=== PATIENT | female | born 1980 | race Two or more races ===

== ENCOUNTER → 2020-07-11 09:45 | Outpatient (BNVA) | payer MEDICAID, SELFPAY | PROVIDERS: PCP Internal Medicine; Visit Provider Surgery | DX: E65 Localized adiposity (principal) | CPT/HCPCS: 99203 ==

== ENCOUNTER 2020-07-26 09:27 | Outpatient (REF) | payer MEDICAID, SELFPAY ==
--- NOTE | 2020-07-26 09:29 | CT_ITS ---
EXAMINATION: CT ABDOMEN AND PELVIS WITHOUT CONTRAST CLINICAL INFORMATION: Localized adiposity COMPARISON: None TECHNIQUE: Multidetector volumetric imaging was performed from the superior aspect of the liver through the pubic symphysis. Sagittal and coronal reformatted images were obtained on the technologist's workstation. This CT examination was performed using dose optimization techniques as appropriate, variously including the following: *Automated exposure control *Adjustment of mA and/or kV according to patient size (this includes techniques or standardized protocols for targeted exams where dose is matched to indication/reason for exam; i.e. extremities or head) *Use of iterative reconstruction technique DLP: 610 mGy-cm FINDINGS: LUNG BASES: The visualized lung bases are unremarkable. LIVER, GALLBLADDER, AND BILIARY TREE: The liver is normal in size, shape, and attenuation. No focal hepatic lesion or biliary ductal dilatation is present. The gallbladder is unremarkable with no evidence of radiopaque gallstones, gallbladder wall thickening, or obvious pericholecystic inflammatory changes. PANCREAS: Unremarkable. SPLEEN: Unremarkable. ADRENAL GLANDS: Unremarkable. KIDNEYS AND URETERS: The kidneys are normal in size, shape, and attenuation. No hydronephrosis, hydroureter, or calculi seen. No perinephric stranding. BLADDER: Unremarkable. GASTROINTESTINAL TRACT: The small and large bowel are unremarkable. The appendix is unremarkable. ABDOMINAL WALL: There is an infraumbilical hernia containing fat. This is 1 cm below the umbilicus and measures 2 cm. LYMPH NODES: Normal. VASCULAR: Unremarkable. PELVIC VISCERA: No pelvic mass. OSSEOUS STRUCTURES: There is degenerative disc disease at L5-S1. CT/CT abdomen pelvis wo con IMPRESSION: Infraumbilical hernia containing fat.
== END 2020-07-26 09:28 | disposition home or self-care (01) ==
LOC: HO.CT 09:27
PROVIDERS: PCP Internal Medicine; Visit Provider Surgery
DX: E65 Localized adiposity (principal)
CPT/HCPCS: 74176

== ENCOUNTER → 2020-07-31 10:36 | Outpatient (BNVA) | payer MEDICAID, SELFPAY | PROVIDERS: PCP Internal Medicine; Visit Provider Surgery | DX: K42.9 Umbilical hernia without obstruction or gangrene (principal); E65 Localized adiposity | CPT/HCPCS: 99212 ==

== ENCOUNTER 2020-08-14 10:14 | Outpatient (REF) | payer MEDICAID, SELFPAY ==
--- NOTE | 2020-08-14 10:30 | EMG_ITS ---
HISTORY OF PRESENT ILLNESS: This is a 40-year-old woman with bilateral hand pain and numbness. She is on no medications. PHYSICAL EXAMINATION: On examination, she is alert and oriented with normal intellectual functions. Cranial nerves II through XII are normal. Muscle tone and strength are normal in all 4 extremities. No Tinel or Phalen sign. IMPRESSION: Rule out carpal tunnel syndrome. Nerve conduction EMG study: Normal electrodiagnostic study of both upper extremities with no evidence of carpal tunnel syndrome or nerve entrapment. Normal EMG of the left C5 through T1 innervated muscles. MD BRIT Gomez/TEQUILA / [id number]
== END 2020-08-14 10:15 | disposition home or self-care (01) ==
LOC: HO.NEURO 10:14
PROVIDERS: PCP Internal Medicine; Visit Provider Internal Medicine
DX: G56.03 Carpal tunnel syndrome, bilateral upper limbs (principal)
CPT/HCPCS: 95860; 95886

== ENCOUNTER 2021-06-12 16:30 | Emergency (ER) | payer MEDICAID, SELFPAY ==
--- NOTE | ~2021-06-12 | XR_ITS ---
EXAMINATION: XR CHEST CLINICAL INFORMATION: Chest pain COMPARISON: None TECHNIQUE: 2 views of the chest were obtained. FINDINGS: The lungs are well expanded. There is no focal consolidation, edema, or effusion. No pneumothorax. The cardiomediastinal silhouette is within normal limits. No acute osseous abnormality. XR/XR chest 2V IMPRESSION: Clear lungs.
--- NOTE | 2021-06-12 17:34 | ECG_ITS ---
Test Reason : CHEST PAIN Blood Pressure : / mmHG Vent. Rate : 071 BPM Atrial Rate : 071 BPM P-R Int : 148 ms QRS Dur : 082 ms QT Int : 372 ms P-R-T Axes : 011 026 024 degrees QTc Int : 404 ms Normal sinus rhythm Normal ECG No previous ECGs available Referred By: Generic ED Physician Electronically Signed By:GINGER TOMLINSON
[2021-06-12 17:52] LABS: MANUAL DIFF FLAG NO
[2021-06-12 17:53] LABS: Basophils Percent Auto 0.3 % (0-2); Eosinophils Absolute Auto 0.1 X10*3/uL (0.0-0.4); Eosinophils Percent Auto 1.3 % (0-4); Hematocrit 42.8 % (37-47); Hemoglobin 14.1 g/dl (12.0-16.0); Imm Gran Abs Auto 0.01 X10*3/uL (0.00-0.03); Imm Gran Pct Auto 0.2 % (0.0-0.4); Lymphocytes Absolute Auto 2.1 X10*3/uL (1.2-4.9); Lymphocytes Percent Auto 33.9 % (20-40); Mean Corpuscular HGB Conc 32.9 g/dl (31.0-35.0); Mean Corpuscular Hemoglobin 29.3 pg (27.0-33.0); Mean Platelet Volume 9.6 fL (9.4-12.3); Monocytes Absolute Auto 0.6 X10*3/uL (0.1-1.2); Monocytes Percent Auto 8.7 % (2-11); Neutrophils Absolute Auto 3.5 X10*3/uL (2.0-8.3); Neutrophils Percent Auto 55.6 % (45-73); Platelet Count 303 X10*3/uL (160-400); Red Blood Count 4.81 X10*6/uL (4.20-5.50); Red Cell Distribution Width 13.1 % (11.0-16.0); White Blood Count 6.3 X10*3/uL (4.8-10.8)
[2021-06-12 18:00] VITALS: BP 119/74; PULSE 77; RESP 18; TEMP 36.9; O2SAT 98; BMI 38.0
[2021-06-12 18:07] LABS: Alanine Aminotransferase 23 U/L (0-31); Albumin Level 4.3 g/dL (3.5-5.0); Alkaline Phosphatase 77 U/L (39-117); Anion Gap 11 (12-20); Aspartate Amino Transferase 22 U/L (5-31); Bilirubin Total 0.3 mg/dL (0.0-1.0); Blood Urea Nitrogen 12 mg/dL (9-16); Calcium 10.3 mg/dL (8.4-10.2); Carbon Dioxide 29 mmol/L (22-29); Chloride 106 mmol/L (96-108); Creatinine Clr Calc Pharmacy 78.5; Estimated Glomerular Filt Rate > 60; Glucose Random 107 mg/dL (60-115); Potassium 4.4 mmol/L (3.3-5.1); Sodium 142 mmol/L (135-145); Total Protein 7.6 g/dL (6.5-8.0)
[2021-06-12 20:49] VITALS: BP 120/76; PULSE 63; RESP 14; O2SAT 99
[2021-06-12 21:01] LABS: Appearance Urine CLEAR; Color Urine YELLOW; Glucose Urine UA NEG (NEG); Leukocyte Esterase Urine NEG (NEG); Nitrite Urine NEG (NEG); Specific Gravity - Urine 1.025 (1.005-1.025); Urine Blood NEG (NEG); Urine Ketones NEG (NEG); Urine Protein NEG (NEG-TRACE)
[2021-06-12 21:19] LABS: Troponin-I High Sensitivity < 3.5 ng/L (<3.5-17.0)
--- NOTE | 2021-06-12 21:40 | ED_ITS ---
HPI - General Adult General Chief complaint: Dizziness Stated complaint: Double vision/hand weakness Time Seen by Provider: 06/12/21 21:39 Source: patient Mode of arrival: ambulatory Limitations: language barrier History of Present Illness HPI narrative: sharp chest pain, started yesterday, no prior history. Patient is currently taking an antibiotic for a UTI started immediately after. No nausea, no belching. Patient states the pain is accompanied by a warm sensation and arm pain. The pain lasts 15 to 20 minutes. Onset (ago): day(s) Radiation: other (arms) Severity: mild Quality: sharp Pain Consistency: intermittent Relieving factors: none Exacerbating factors: none Related Data Home Medications Medication Instructions Recorded Confirmed albuterol sulfate 90 mcg/actuation 2 puff INHALATION Q4-6H PRN 07/11/20 aerosol inhaler atorvastatin 20 mg tablet 20 mg PO DAILY 07/11/20 benzonatate 100 mg capsule 100 mg PO TID 07/11/20 (Piper Pinedo) betamethasone dipropionate 0.05 % 1 applic TOPICAL DAILY PRN 07/11/20 topical cream bupropion HCl 100 mg tablet 100 mg PO DAILY tab 07/11/20 buspirone 10 mg tablet 10 mg PO BID 07/11/20 [id number]-ogosxjflijqeu-hzcdjbuq 1 cap PO Q4H PRN 07/11/20 50 mg-325 mg-40 mg capsule cholecalciferol (vitamin D3) 50 50 mcg PO DAILY 07/11/20 mcg (2,000 unit) capsule ciprofloxacin HCl 500 mg tablet 500 mg PO Q12H 07/11/20 citalopram 20 mg tablet 20 mg PO DAILY 07/11/20 famotidine 40 mg tablet 40 mg PO BEDTIME 07/11/20 fluticasone propionate 230 1 puff INHALATION BID g 07/11/20 mcg-salmeterol 21 mcg/actuation HFA inhaler hydroxyzine HCl 50 mg tablet 50 mg PO BID 07/11/20 metronidazole 0.75 % topical cream 1 applic TOPICAL BID 07/11/20 sumatriptan succinate 100 mg 100 mg PO Q2-4H PRN 07/11/20 tablet (Imitrex) topiramate 50 mg tablet 50 mg PO BID 07/11/20 triamcinolone acetonide 0.1 % 1 applic TOPICAL BID 07/11/20 topical cream Allergies Allergy/AdvReac Type Severity Reaction Status Date / Time aspirin Allergy Unknown Unknown Verified 06/12/21 17:59 Penicillins Allergy Unknown Unknown Verified 06/12/21 17:59 seafood Allergy Rash Verified 06/12/21 17:59 Review of Systems Constitutional: Constitutional: Reports no additional constitutional complaints Eyes: Eyes: Reports no additional eye complaints ENT: Denies dizziness Cardiovascular: Cardiovascular: Reports no additional cardiovascular complaints Respiratory: Respiratory: Reports as per HPI Gastrointestinal: Gastrointestinal: Reports no additional gastrointestinal complaints Genitourinary: Genitourinary: Reports no additional female genitourinary complaints Musculoskeletal: Musculoskeletal: Reports no additional musculoskeletal complaints Integumentary/Breasts: Skin/Breast: Denies rash Neurologic: Reports system reviewed and no additional complaints, except as documented, Denies dizziness and Denies Sensory deficit (Neuro) Psychiatric: Psychiatric: Denies anxiety [facility] Past Medical History Medical History Asthma Migraine Morbid obesity Pannus, abdominal Umbilical hernia Surgical History History of bilateral breast reduction surgery History of hysterectomy Family History Family History Father History of prostate cancer Maternal Aunt History of breast cancer Social History Social History Alcohol intake: never Advance Directives: No Advance Directives Information Provided: Yes Patient : No Physical Exam Vital Signs: Vital Signs: Last Vital Signs Temp 98.5 F 06/12/21 18:00 Pulse 72 06/12/21 22:53 Resp 16 06/12/21 22:53 BP 116/77 06/12/21 22:53 Pulse Ox 97 06/12/21 22:00 Body Mass Index 38.0 Const: General: healthy appearing Nutritional Appearance: average body habitus Orientation/consciousness: oriented to person and patient oriented x3 Limitations: no limitations HENMT: Head: Yes normal to inspection Ears: external ears normal General nose exam: Normal external nose present Mouth: Normal oral and palatal mucosa present and oropharynx normal Throat: Yes posterior oropharynx normal Eyes: General: appearance normal, both eyes and all related structures Neck: Other: supple Neck: Yes normal visual inspection Chest: Other: reproducible sternal pain to palpation Resp: Auscultation: clear to auscultation bilaterally Cardio: Jugular venous distension: no JVD Rate: regular rate Rhythm: regular rhythm Heart sounds: S1 normal heart sound present and S2 normal heart sound present GI: Inspection: Yes normal to inspection Palpation (GI): Soft to palpation, nontender and No hepatosplenomegaly present Auscultation: normal bowel sounds : General: Yes no CVA tenderness Back/Spine/Pelvis: Back: no CVA tenderness Skin: General skin exam: no rashes or lesions noted Neuro: General: oriented to person and patient oriented x3 Cranial nerves: Yes CN's II-XII intact bilaterally Motor exam (neuro): 5/5 motor strength present throughout Sensory Exam: No Sensory deficit (Neuro) Extrem: General: Yes normal to inspection Psych: Appearance: grossly normal Course Reevaluation(s) Reevaluation #1: Labs EKG, CXR all normal, physical consistent with costrochondritis will dc home Time: 23:01 Medical Decision Making Lab Data Result diagrams: 06/12/21 17:43 06/12/21 17:43 Labs: Lab Results 06/12/21 06/12/21 06/12/21 Range/Units 17:43 17:43 20:55 WBC 6.3 (4.8-10.8) X10*3/uL RBC 4.81 (4.20-5.50) X10*6/uL Hgb 14.1 (12.0-16.0) g/dl Hct 42.8 (37-47) % MCV 89.0 (80-98) fL MCH 29.3 (27.0-33.0) pg MCHC 32.9 (31.0-35.0) g/dl RDW 13.1 (11.0-16.0) % Plt Count 303 (160-400) X10*3/uL MPV 9.6 (9.4-12.3) fL Immature Gran % (Auto) 0.2 (0.0-0.4) % Neut % (Auto) 55.6 (45-73) % Lymph % (Auto) 33.9 (20-40) % Aurora % (Auto) 8.7 (2-11) % Eos % (Auto) 1.3 (0-4) % Baso % (Auto) 0.3 (0-2) % Lymph # (Auto) 2.1 (1.2-4.9) X10*3/uL Aurora # (Auto) 0.6 (0.1-1.2) X10*3/uL Eos # (Auto) 0.1 (0.0-0.4) X10*3/uL Baso # (Auto) 0.0 (0.0-0.2) X10*3/uL Abs Immat Gran (auto) 0.01 (0.00-0.03) X10*3/uL Absolute Neuts (auto) 3.5 (2.0-8.3) X10*3/uL Absolute Nucleated RBC 0.000 (0.0-0.012) X10*3/uL Nucleated RBC % (auto) 0.0 (0.0-0.2) /100WBC Sodium 142 (135-145) mmol/L Potassium 4.4 (3.3-5.1) mmol/L Chloride 106 (96-108) mmol/L Carbon Dioxide 29 (22-29) mmol/L Anion Gap 11 L (12-20) BUN 12 (9-16) mg/dL Creatinine 1.01 (0.5-1.4) mg/dL Estim Creat Clear Calc 78.5 Estimated GFR > 60 Random Glucose 107 (60-115) mg/dL Calcium 10.3 H (8.4-10.2) mg/dL Total Bilirubin 0.3 (0.0-1.0) mg/dL AST 22 (5-31) U/L ALT 23 (0-31) U/L Alkaline Phosphatase 77 (39-117) U/L Troponin I High Sens < 3.5 (<3.5-17.0) ng/L Total Protein 7.6 (6.5-8.0) g/dL Albumin 4.3 (3.5-5.0) g/dL Urine Color Urine Appearance Urine pH (5.0-8.0) Ur Specific Whitney (1.005-1.025) Urine Protein (NEG-TRACE) MG/DL Urine Glucose (UA) (NEG) MG/DL Urine Ketones (NEG) MG/DL Urine Blood (NEG) Urine Nitrite (NEG) Ur Leukocyte Esterase (NEG) 06/12/21 Range/Units 20:55 WBC (4.8-10.8) X10*3/uL RBC (4.20-5.50) X10*6/uL Hgb (12.0-16.0) g/dl Hct (37-47) % MCV (80-98) fL MCH (27.0-33.0) pg MCHC (31.0-35.0) g/dl RDW (11.0-16.0) % Plt Count (160-400) X10*3/uL MPV (9.4-12.3) fL Immature Gran % (Auto) (0.0-0.4) % Neut % (Auto) (45-73) % Lymph % (Auto) (20-40) % Aurora % (Auto) (2-11) % Eos % (Auto) (0-4) % Baso % (Auto) (0-2) % Lymph # (Auto) (1.2-4.9) X10*3/uL Aurora # (Auto) (0.1-1.2) X10*3/uL Eos # (Auto) (0.0-0.4) X10*3/uL Baso # (Auto) (0.0-0.2) X10*3/uL Abs Immat Gran (auto) (0.00-0.03) X10*3/uL Absolute Neuts (auto) (2.0-8.3) X10*3/uL Absolute Nucleated RBC (0.0-0.012) X10*3/uL Nucleated RBC % (auto) (0.0-0.2) /100WBC Sodium (135-145) mmol/L Potassium (3.3-5.1) mmol/L Chloride (96-108) mmol/L Carbon Dioxide (22-29) mmol/L Anion Gap (12-20) BUN (9-16) mg/dL Creatinine (0.5-1.4) mg/dL Estim Creat Clear Calc Estimated GFR Random Glucose (60-115) mg/dL Calcium (8.4-10.2) mg/dL Total Bilirubin (0.0-1.0) mg/dL AST (5-31) U/L ALT (0-31) U/L Alkaline Phosphatase (39-117) U/L Troponin I High Sens (<3.5-17.0) ng/L Total Protein (6.5-8.0) g/dL Albumin (3.5-5.0) g/dL Urine Color YELLOW Urine Appearance CLEAR Urine pH 6.0 (5.0-8.0) Ur Specific Whitney 1.025 (1.005-1.025) Urine Protein NEG (NEG-TRACE) MG/DL Urine Glucose (UA) NEG (NEG) MG/DL Urine Ketones NEG (NEG) MG/DL Urine Blood NEG (NEG) Urine Nitrite NEG (NEG) Ur Leukocyte Esterase NEG (NEG) Imaging Data Chest x-ray: Radiologist's impression: IMPRESSION: Clear lungs. ECG Data Attestation: I personally reviewed and interpreted this ECG as follows: Interpretation: normal sinus rast of 70, no st or twave changes Discharge Plan Discharge Clinical Impression: Acute costochondritis Patient Disposition: Home, Self-Care Instructions: Costochondritis (ED) Prescriptions: No Action topiramate 50 mg tablet 50 mg PO BID RF: 0 atorvastatin 20 mg tablet 20 mg PO DAILY RF: 0 citalopram 20 mg tablet 20 mg PO DAILY RF: 0 fluticasone propion-salmeterol 230-21 mcg/actuation HFA aerosol inhaler 1 puff inhalation BID RF: 0 bupropion HCl 100 mg tablet 100 mg PO DAILY RF: 0 sumatriptan succinate [Imitrex] 100 mg tablet 100 mg PO Q2-4H PRNRF: 0 cholecalciferol (vitamin D3) 50 mcg (2,000 unit) capsule 50 mcg PO DAILY RF: 0 benzonatate [Tessalon Perles] 100 mg capsule 100 mg PO TID RF: 0 nuovfxqgto-shxerpepxgfar-evxv 50-325-40 mg capsule 1 cap PO Q4H PRNRF: 0 famotidine 40 mg tablet 40 mg PO BEDTIME RF: 0 buspirone 10 mg tablet 10 mg PO BID RF: 0 triamcinolone acetonide 0.1 % cream 1 applic topical BID RF: 0 albuterol sulfate 90 mcg/actuation HFA aerosol inhaler 2 puff inhalation Q4-6H PRNRF: 0 metronidazole 0.75 % cream 1 applic topical BID RF: 0 hydroxyzine HCl 50 mg tablet 50 mg PO BID RF: 0 betamethasone dipropionate 0.05 % cream 1 applic topical DAILY PRNRF: 0 ciprofloxacin HCl 500 mg tablet 500 mg PO Q12H RF: 0 Referrals: Simona Ribeiro MD [Primary Care Provider] - 5 days
[2021-06-12 22:00] VITALS: BP 128/79; PULSE 66; RESP 18; O2SAT 97
[2021-06-12] MEDS: NaPROXEN 500 MG TABLET PO (22:18)
[2021-06-12 22:53] VITALS: BP 116/77; PULSE 72; RESP 16
== END 2021-06-12 23:19 | disposition home or self-care (01) ==
PROVIDERS: Emergency Provider Emergency Medicine; PCP Internal Medicine
DX: M94.0 Chondrocostal junction syndrome [Tietze] (principal); R42 Dizziness and giddiness; M79.602 Pain in left arm; M79.601 Pain in right arm; Z79.899 Other long term (current) drug therapy
CPT/HCPCS: 36415; 71046; 80053; 81003; 84484; 85025; 93005; 99283; 99284

== ENCOUNTER 2021-08-18 09:33 | Outpatient (REF) | payer MEDICAID, SELFPAY ==
[2021-08-21 16:31] LABS: HPV mRNA E6/E7 rflx Not Detected (Not Detected)
== END 2021-08-18 09:34 | disposition home or self-care (01) ==
LOC: HO.LAB 09:33
PROVIDERS: Visit Provider Obstetrics & Gynecology
DX: Z01.419 Encounter for gynecological examination (general) (routine) without abnormal findings (principal); Z11.51 Encounter for screening for human papillomavirus (HPV)
CPT/HCPCS: 87624; 88142

== ENCOUNTER → 2021-08-22 11:40 | Outpatient (BNVA) | payer MEDICAID, SELFPAY | PROVIDERS: PCP Internal Medicine; Referring Provider Internal Medicine; Visit Provider Physician Assistant ==

== ENCOUNTER → 2021-08-27 08:06 | Outpatient (BNVA) | payer MEDICAID, SELFPAY | PROVIDERS: PCP Internal Medicine; Visit Provider Surgery ==

== ENCOUNTER 2021-08-30 07:40 | Outpatient (REF) | payer MEDICAID, SELFPAY ==
--- NOTE | ~2021-08-30 | XR_ITS ---
EXAMINATION: XR CHEST CLINICAL INFORMATION: Asthma. COMPARISON: 06/12/2021 TECHNIQUE: 2 views of the chest were obtained. FINDINGS: No acute finding. No infiltrate is seen. The lung condon are grossly clear. The cardiac silhouette is within normal limits. The hilar regions are comparable to previous. There is no effusion. XR/XR chest 2V IMPRESSION: No acute finding.
[2021-08-30 07:45] LABS: MANUAL DIFF FLAG NO
[2021-08-30 08:06] LABS: Basophils Percent Auto 0.5 % (0-2); Eosinophils Absolute Auto 0.1 X10*3/uL (0.0-0.4); Eosinophils Percent Auto 1.8 % (0-4); Hematocrit 44.5 % (37.0-47.0); Hemoglobin 14.6 g/dl (12.0-16.0); Imm Gran Abs Auto 0.01 X10*3/uL (0.00-0.03); Imm Gran Pct Auto 0.2 % (0.0-0.4); Lymphocytes Absolute Auto 2.5 X10*3/uL (1.2-4.9); Lymphocytes Percent Auto 41.3 % (20-40); Mean Corpuscular HGB Conc 32.8 g/dl (31.0-35.0); Mean Corpuscular Hemoglobin 29.2 pg (27.0-33.0); Mean Platelet Volume 9.7 fL (9.4-12.3); Monocytes Absolute Auto 0.5 X10*3/uL (0.1-1.2); Monocytes Percent Auto 8.9 % (2-11); Neutrophils Absolute Auto 2.9 x10*3/uL (2.0-8.3); Neutrophils Percent Auto 47.3 % (45-73); Platelet Count 325 X10*3/uL (160-400); Red Cell Distribution Width 12.9 % (11.0-16.0); White Blood Count 6.1 X10*3/uL (4.8-10.8)
[2021-08-30 08:16] LABS: Estimated Average Glucose 120 mg/dL; Hemoglobin A1c % 5.8 %
[2021-08-30 08:27] LABS: Alanine Aminotransferase 19 U/L (0-31); Albumin Level 4.5 g/dL (3.5-5.0); Alkaline Phosphatase 93 U/L (39-117); Anion Gap 13 (12-20); Aspartate Amino Transferase 18 U/L (5-31); Bilirubin Total 0.6 mg/dL (0.0-1.0); Blood Urea Nitrogen 12 mg/dL (9-16); C Reactive Protein 0.25 mg/dL (< or = 0.50); Calcium 10.3 mg/dL (8.4-10.2); Carbon Dioxide 28 mmol/L (22-29); Chloride 107 mmol/L (96-108); Cholesterol 157 mg/dL; Estimated Glomerular Filt Rate 58; Glucose Random 105 mg/dL (60-115); HDL Cholesterol 51 mg/dL; Iron 128 mcg/dL (30-160); LDL Cholesterol Calculated 84 mg/dl; Percent Iron Saturation 41 % (15-50); Potassium 4.1 mmol/L (3.3-5.1); Sodium 144 mmol/L (135-145); Total Iron Binding Capacity 315 mcg/dL (228-428); Total Protein 7.8 g/dL (6.5-8.0); Triglycerides 112 mg/dL; Unsaturated Iron Binding 187 ug/dL
[2021-08-30 08:49] LABS: Ferritin 198 ng/mL (10-250); TSH reflex Free T4 1.59 uIU/mL (0.32-4.0)
[2021-08-30 09:19] LABS: Insulin 33 uU/mL (2-29); Vitamin D 25-OH Total 31.3 ng/mL (>30)
[2021-09-01 08:39] LABS: Folate 15.8 ng/mL (> or = 4.0); Vitamin B12 401 pg/mL (200-900)
[2021-09-01 16:31] LABS: Calcium (PTHI) 10.1 mg/dL (8.6-10.2); PTHI 49 pg/mL (14-64)
[2021-09-02 16:15] LABS: Zinc 83 mcg/dL (60-130)
[2021-09-03 19:42] LABS: Vitamin A 31 mcg/dL (38-98)
[2021-09-04 15:31] LABS: Vitamin B1 13 nmol/L (8-30)
== END 2021-08-30 07:41 | disposition home or self-care (01) ==
LOC: HO.XRAY 07:40
PROVIDERS: PCP Internal Medicine; Visit Provider Surgery
DX: J45.909 Unspecified asthma, uncomplicated (principal); K21.9 Gastro-esophageal reflux disease without esophagitis; K42.9 Umbilical hernia without obstruction or gangrene; G47.30 Sleep apnea, unspecified; G43.909 Migraine, unspecified, not intractable, without status migrainosus; E78.5 Hyperlipidemia, unspecified; E66.9 Obesity, unspecified; Z68.38 Body mass index [BMI] 38.0-38.9, adult; E11.9 Type 2 diabetes mellitus without complications
CPT/HCPCS: 36415; 71046; 80053; 80061; 82306; 82607; 82728; 82746; 83036; 83525; 83540; 83970; 84425; 84443; 84590; 84630; 85025; 86140

== ENCOUNTER → 2021-09-01 07:38 | Outpatient (REF) | payer MEDICAID, SELFPAY ==
--- NOTE | 2021-09-01 07:57 | ECG_ITS ---
Test Reason : asthma Blood Pressure : / mmHG Vent. Rate : 058 BPM Atrial Rate : 058 BPM P-R Int : 146 ms QRS Dur : 088 ms QT Int : 400 ms P-R-T Axes : 009 039 028 degrees QTc Int : 392 ms Sinus bradycardia Otherwise normal ECG When compared with ECG of 12-JUN-2021 17:41, No significant change was found Referred By: El Fisher Electronically Signed By:WAYNE RUELAS MD
== END ==
LOC: HO.CARD 07:38
PROVIDERS: PCP Internal Medicine; Visit Provider Surgery
DX: E66.9 Obesity, unspecified (principal); Z68.38 Body mass index [BMI] 38.0-38.9, adult; E11.9 Type 2 diabetes mellitus without complications; E78.5 Hyperlipidemia, unspecified; G43.909 Migraine, unspecified, not intractable, without status migrainosus; G47.30 Sleep apnea, unspecified; K21.9 Gastro-esophageal reflux disease without esophagitis; K42.9 Umbilical hernia without obstruction or gangrene; J45.909 Unspecified asthma, uncomplicated
CPT/HCPCS: 93005

== ENCOUNTER 2021-09-10 11:28 | Outpatient (REF) | payer MEDICAID, SELFPAY ==
[2021-09-11 14:16] LABS: H Pylori Breath Test Negative (Negative)
== END 2021-09-10 11:29 | disposition home or self-care (01) ==
LOC: HO.LNP 11:28
PROVIDERS: PCP Internal Medicine; Referring Provider Internal Medicine; Visit Provider Surgery
DX: E66.9 Obesity, unspecified (principal); Z68.38 Body mass index [BMI] 38.0-38.9, adult; Z71.3 Dietary counseling and surveillance
CPT/HCPCS: 83013; 97802; 99211

== ENCOUNTER 2021-09-11 08:35 | Outpatient (REF) | payer MEDICAID, SELFPAY | END 2021-09-11 08:36 | disposition home or self-care (01) | LOC: HO.LNP 08:35 | PROVIDERS: Visit Provider Surgery | DX: Z13.89 Encounter for screening for other disorder (principal) ==

== ENCOUNTER 2021-09-23 11:15 | Outpatient (REF) | payer MEDICAID, SELFPAY ==
--- NOTE | ~2021-09-23 | MM_ITS ---
EXAMINATION: MM SCREENING DIGITAL BREAST TOMOSYNTHESIS, BILATERAL CLINICAL INFORMATION: Screening. Asymptomatic. History ovarian cancer, age 30s. Family history breast cancer paternal aunt. Prior history reduction mammoplasty 2009. Incidental right breast fibroadenoma. The lifetime risk of breast cancer based on the Tyrer-Cuzick Model is 34%. COMPARISON: Outside mammography: 07/08/2019 ([facility]). TECHNIQUE: Digital breast tomosynthesis is performed in both the craniocaudal and mediolateral oblique views along with computer-aided detection (CAD). Synthesized 2D images are generated from the tomosynthesis. Additional right MLO view is provided. FINDINGS: The breasts are almost entirely fatty (ACR BI-RADS breast composition Category a). Background stromal tissue is similar to prior outside exam. There is minor scarring and scattered benign round and rim and dermal calcifications consistent with the prior reduction mammoplasty. There is an incidental dermal lesion overlying the anterior 11:00 right breast. The axilla are unremarkable. MM/MM tomosynthesis screening BI IMPRESSION: No mammographic evidence of malignancy. ASSESSMENT: BI-RADS 2: Benign RECOMMENDATION: 1. Routine annual mammography screening. 2. The lifetime risk of breast cancer based on the Tyrer-Cuzick Model is 34%. Additional annual adjunct screening with breast MRI may be of benefit in women with a risk score of 20% or greater. This patient's information was entered into a reminder system with a target due date for their next mammogram.
== END 2021-09-23 11:16 | disposition home or self-care (01) ==
LOC: HO.MAMMO 11:15
PROVIDERS: Visit Provider Obstetrics & Gynecology
DX: Z12.31 Encounter for screening mammogram for malignant neoplasm of breast (principal)
CPT/HCPCS: 77063; 77067

== ENCOUNTER → 2021-09-24 08:52 | Outpatient (BNVA) | payer MEDICAID, SELFPAY | PROVIDERS: PCP Internal Medicine; Visit Provider Surgery ==

== ENCOUNTER → 2021-10-07 08:06 | Outpatient (BNVA) | payer MEDICAID, SELFPAY | PROVIDERS: PCP Internal Medicine; Referring Provider Physician Assistant; Visit Provider Dietitian, Registered | DX: E66.9 Obesity, unspecified (principal) | CPT/HCPCS: 97803 ==

== ENCOUNTER 2021-10-16 07:41 | Outpatient (REF) | payer MEDICAID, SELFPAY ==
--- NOTE | ~2021-10-16 | US_ITS ---
EXAMINATION: US COMPLETE ABDOMEN WITH LIVER ELASTOGRAPHY CLINICAL INFORMATION: Obesity. COMPARISON: CT abdomen and pelvis without contrast 07/26/2020. TECHNIQUE: Real-time imaging of the abdominal viscera. Noninvasive ultrasound liver fibrosis assessment is performed using Nas ElastPQ point quantification shear wave elastography (2D-SWE) with a C5-2 MHz transducer. Multiple elastography samples are obtained. FINDINGS: PANCREAS: Normal. The visualized pancreatic head and body are normal in appearance. The remainder of the pancreas is obscured from visualization by the overlying bowel gas. ABDOMINAL AORTA: The proximal, middle, and distal aortic segments are normal in caliber. INFERIOR VENA CAVA: Visualized portions are normal. LIVER: Normal. The liver demonstrates normal size, contour and increased echogenicity. No focal lesion or intrahepatic biliary duct dilatation. The right lobe measures 1.61 cm in length. The left lobe measures 0.12 cm in length. Portal flow is hepatopetal. Shear wave liver elastography median stiffness is 1.61 m/s (reference: normal median stiffness is 1.3 m/s or less). IQR/median stiffness to assess sampling precision is 0.12 (reference: good quality data set is IQR/median stiffness of 0.15 or less). GALLBLADDER: Normal. The gallbladder is physiologically distended without evidence of stones, sludge, polyps, wall thickening or pericholecystic fluid. COMMON BILE DUCT: Normal in caliber measuring 0.27 cm in diameter. RIGHT KIDNEY: Normal. No hydronephrosis. No renal calculi or focal parenchymal lesions. The kidney measures 10.6 cm in maximum dimension. LEFT KIDNEY: Normal. No hydronephrosis. No renal calculi or focal parenchymal lesions. The kidney measures 10.5 cm in maximum dimension. SPLEEN: Normal. The spleen measures 9.2 cm in maximum dimension. FREE FLUID: None. US/US abdomen comp w elastography IMPRESSION: 1. Hepatic steatosis without focal lesion. 2. The rest of the abdominal ultrasound is unremarkable. 3. Liver elastography: Median liver stiffness measures 1.61 m/s, cACLD ruled out. REFERENCE: Society of Radiologists in Ultrasound Liver Stiffness Thresholds (2019): LIVER STIFFNESS THRESHOLDS: *Liver Stiffness equal or less than 1.3 m/s: High probability of being normal. *Liver Stiffness less than 1.7 m/s: In the absence of other known clinical signs, rules out compensated advanced chronic liver disease. *Liver Stiffness 1.7-2.1 m/s: Suggestive of compensated advanced chronic liver disease but need further test for confirmation. *Liver Stiffness over 2.1 m/s: Rules in compensated advanced chronic liver disease. *Liver Stiffness over 2.4 m/s: Suggestive of clinically significant portal hypertension. QUALITY OF DATA SET: *IQR/Median value equal or less than 0.15 implies a quality data set. *IQR/Median value over 0.15 implies a poor quality data set. SIGNIFICANT CHANGE FROM PRIOR EXAM: Significant change if liver stiffness measurement is 10% or greater from prior exam. OTHER CONSIDERATIONS: The stage of liver fibrosis may be overestimated in the setting of acute hepatitis, liver inflammation, elevated liver function tests, hepatic vascular congestion, obstructive cholestasis, non-fasting state, and infiltrative diseases such as amyloidosis and lymphoma. In some patients with NAFLD, the liver stiffness thresholds for compensated advanced chronic liver disease may be lower. In causes other than viral hepatitis and NAFLD, liver stiffness thresholds are not well established.
--- NOTE | ~2021-10-16 | FL_ITS ---
EXAMINATION: XR FLUOROSCOPY UPPER GI WITH AIR CLINICAL INFORMATION: Asthma COMPARISON: None TECHNIQUE: Air-contrast upper GI examination FINDINGS: There is normal apposition of the vocal cords when saying E. There is normal elevation of the soft palate while saying candy. Patient swallowed thin and thick barium without difficulty. There is no evidence of nasopharyngeal reflux or tracheal aspiration. No persistent esophageal stricture is seen. No ulceration noted. The stomach demonstrated normal distensibility without evidence of abnormal mass or ulceration. There was no delay in gastric emptying. The duodenal bulb and sweep appear unremarkable. FLUOROSCOPY TIME: 1.5 minutes DOSE AREA PRODUCT: 13.369 Gy-cm2 (cueva-centimeter squared) FL/FL upper GI w air IMPRESSION: Normal air-contrast upper GI examination.
== END 2021-10-16 07:42 | disposition home or self-care (01) ==
LOC: HO.US 07:41
PROVIDERS: Visit Provider Surgery
DX: J45.909 Unspecified asthma, uncomplicated (principal); G43.909 Migraine, unspecified, not intractable, without status migrainosus; K21.9 Gastro-esophageal reflux disease without esophagitis; K42.9 Umbilical hernia without obstruction or gangrene; G47.30 Sleep apnea, unspecified; E78.5 Hyperlipidemia, unspecified; E11.9 Type 2 diabetes mellitus without complications; E66.9 Obesity, unspecified; Z68.38 Body mass index [BMI] 38.0-38.9, adult
CPT/HCPCS: 74246; 76705; 76981

== ENCOUNTER → 2021-10-22 12:22 | Outpatient (BNVA) | payer MEDICAID, SELFPAY | PROVIDERS: Visit Provider Obstetrics & Gynecology ==

== ENCOUNTER → 2021-11-07 08:22 | Outpatient (BNVA) | payer MEDICAID, SELFPAY | PROVIDERS: Referring Provider Surgery; Visit Provider Dietitian, Registered | DX: E66.9 Obesity, unspecified (principal); E11.9 Type 2 diabetes mellitus without complications; Z68.36 Body mass index [BMI] 36.0-36.9, adult | CPT/HCPCS: 97803 ==

== ENCOUNTER 2021-11-13 10:00 | Outpatient (REF) | payer MEDICAID, SELFPAY ==
--- NOTE | ~2021-11-13 | MR_ITS ---
EXAMINATION: MR BREAST WITHOUT AND WITH CONTRAST, BILATERAL CLINICAL INFORMATION: High-risk screening lifetime risk greater than 20% strong family history aunt and cousin COMPARISON: Correlation to mammogram of 09/23/2021 TECHNIQUE: Imaging was performed with a dedicated breast coil. Prior to the administration of contrast, bilateral axial T1 and bilateral axial T2 weighted sequences were obtained. After the uneventful administration of?10 mL of Gadavist, dynamic contrast-enhanced VIBRANT series through the breasts in the axial plane were performed. Subtracted images were performed and reviewed. A delayed sagittal sequence through both breasts was acquired. Additionally, CAD post-processing, including maximum intensity projections, 3-D reconstructions and kinetic analysis, were performed an independent workstation and reviewed by the interpreting radiologist is a portion of this exam. FINDINGS: The patient's fibroglandular tissue demonstrates minimal background enhancement LEFT BREAST: No suspicious masslike or non-masslike enhancement. No abnormal skin thickening or nipple retraction. No abnormal architectural distortion. Review of the T2 weighted images demonstrates no fibrocystic changes or dilated ducts. Review of kinetic images reveals no additional findings. RIGHT BREAST: No suspicious masslike or non-masslike enhancement. No abnormal skin thickening or nipple retraction. No abnormal architectural distortion. Review of the T2 weighted images demonstrates no fibrocystic changes or dilated ducts. Review of kinetic images reveals no additional findings. There is no suspicious internal mammary chain or axillary adenopathy. Limited views of the chest and abdomen are unremarkable. MR/MR breast BI wo/w con IMPRESSION: No MR specific evidence of malignancy. ASSESSMENT: LEFT BREAST: BI-RADS 1-Negative RIGHT BREAST: BI-RADS 1-Negative RECOMMENDATIONS: Routine mammographic imaging as per most recent study and MRI as per high-risk protocol.
== END 2021-11-13 10:01 | disposition home or self-care (01) ==
LOC: HO.MRI 10:00
PROVIDERS: Visit Provider Obstetrics & Gynecology
DX: Z91.89 Other specified personal risk factors, not elsewhere classified (principal)
CPT/HCPCS: 77049; A9585

== ENCOUNTER → 2021-11-18 12:32 | Outpatient (BNVA) | payer MEDICAID, SELFPAY | PROVIDERS: PCP Internal Medicine; Referring Provider Obstetrics & Gynecology; Visit Provider Surgery | DX: Z91.89 Other specified personal risk factors, not elsewhere classified (principal); Z80.3 Family history of malignant neoplasm of breast | CPT/HCPCS: 99202 ==

== ENCOUNTER → 2021-11-28 08:09 | Outpatient (BNVA) | payer MEDICAID, SELFPAY | PROVIDERS: PCP Internal Medicine; Referring Provider Surgery; Visit Provider Dietitian, Registered | DX: E66.9 Obesity, unspecified (principal); Z68.36 Body mass index [BMI] 36.0-36.9, adult | CPT/HCPCS: 97803 ==

== ENCOUNTER → 2021-12-29 08:03 | Outpatient (BNVA) | payer MEDICAID, SELFPAY | PROVIDERS: PCP Internal Medicine; Visit Provider Surgery | DX: E66.9 Obesity, unspecified (principal); Z68.39 Body mass index [BMI] 39.0-39.9, adult; K21.9 Gastro-esophageal reflux disease without esophagitis; R11.0 Nausea; Z01.818 Encounter for other preprocedural examination ==

== ENCOUNTER → 2022-01-01 11:52 | Outpatient (BNVA) | payer MEDICAID, SELFPAY | PROVIDERS: PCP Internal Medicine; Referring Provider Internal Medicine; Visit Provider Physician Assistant Surgical | DX: Z13.89 Encounter for screening for other disorder (principal) ==

== ENCOUNTER 2022-01-06 10:33 | Inpatient (IN) | payer MEDICAID, SELFPAY ==
[2021-12-30 07:56] LABS: MANUAL DIFF FLAG NO
[2021-12-30 08:01] LABS: Basophils Percent Auto 0.7 % (0-2); Eosinophils Percent Auto 0.5 % (0-4); Hematocrit 45.1 % (37.0-47.0); Hemoglobin 14.7 g/dl (12.0-16.0); Imm Gran Abs Auto 0.01 X10*3/uL (0.00-0.03); Imm Gran Pct Auto 0.2 % (0.0-0.4); Lymphocytes Percent Auto 32.9 % (20-40); Mean Corpuscular HGB Conc 32.6 g/dl (31.0-35.0); Mean Corpuscular Hemoglobin 29.2 pg (27.0-33.0); Mean Corpuscular Volume 89.5 fL (80.0-98.0); Monocytes Absolute Auto 0.8 X10*3/uL (0.1-1.2); Monocytes Percent Auto 13.7 % (2-11); Neutrophils Absolute Auto 3.2 x10*3/uL (2.0-8.3); Platelet Count 292 X10*3/uL (160-400); Red Blood Count 5.04 X10*6/uL (4.20-5.50); Red Cell Distribution Width 13.5 % (11.0-16.0); White Blood Count 6.1 X10*3/uL (4.8-10.8)
[2021-12-30 08:06] LABS: INTERNATIONAL NORM RATIO 1.1 (0.9-1.1)
[2021-12-30 08:08] LABS: Partial Thromboplastin Time 32.1 SEC (24.1-38.0)
[2021-12-30 08:12] LABS: Estimated Average Glucose 120 mg/dL; Hemoglobin A1c % 5.8 %
[2021-12-30 08:22] LABS: Alanine Aminotransferase 33 U/L (0-31); Albumin Level 4.6 g/dL (3.5-5.0); Alkaline Phosphatase 94 U/L (39-117); Anion Gap 15 (12-20); Aspartate Amino Transferase 22 U/L (5-31); Bilirubin Total 0.7 mg/dL (0.0-1.0); Blood Urea Nitrogen 13 mg/dL (9-16); C Reactive Protein 2.26 mg/dL (< or = 0.50); Calcium 10.3 mg/dL (8.4-10.2); Carbon Dioxide 27 mmol/L (22-29); Chloride 104 mmol/L (96-108); Cholesterol 221 mg/dL; Estimated Glomerular Filt Rate 56; Glucose Random 109 mg/dL (60-115); HDL Cholesterol 48 mg/dL; LDL Cholesterol Calculated 155 mg/dl; Potassium 4.1 mmol/L (3.3-5.1); Sodium 142 mmol/L (135-145); Total Protein 7.8 g/dL (6.5-8.0); Triglycerides 93 mg/dL
[2021-12-30 08:44] LABS: Insulin 26 uU/mL (2-29); TSH reflex Free T4 1.06 uIU/mL (0.32-4.0)
[2022-01-01 11:04] VITALS: BMI 35.5
--- NOTE | 2022-01-02 08:50 | HO.ANESPROP2 ---
Documented by User: Hilary Johns NP 01/02/22 08:51 HPI - Anesthesia Eval Consult details Narrative: 41yo F for Gastrectomy Sleeve,EGD, possible diaphragmatic hernia,possible ventral hernia,possible open PMFSH Active Problems Active Problems: All Active Problems (Updated 01/01/22 @ 11:02 by Sharon Grider, RN) Well woman exam (Acute) Vitamin A deficiency (Acute) Vitamin B12 deficiency (Acute) BMI 38.0-38.9,adult (Acute) At high risk for breast cancer (Acute) BMI 39.0-39.9,adult (Acute) BMI 34.0-34.9,adult (Acute) Insomnia (Acute) Seizures (Acute) DJD (degenerative joint disease) (Acute) Stress incontinence (Acute) GERD (gastroesophageal reflux disease) (Acute) Hyperlipidemia (Acute) Sleep apnea with use of continuous positive airway pressure (CPAP) (Acute) Non-insulin dependent type 2 diabetes mellitus (Acute) BMI 38.0-38.9,adult (Acute) Obesity (Acute) Umbilical hernia (Acute) Migraine (Acute) Asthma (Acute) Morbid obesity (Acute) Pannus, abdominal (Acute) Past Medical History Medical History (Updated 01/01/22 @ 11:02 by Sharon Grider RN) Asthma BMI 38.0-38.9,adult COVID-19 vaccine series completed DJD (degenerative joint disease) GERD (gastroesophageal reflux disease) Hyperlipidemia Insomnia Migraine Morbid obesity Non-insulin dependent type 2 diabetes mellitus Obesity Ovarian low malignant potential tumor Pannus, abdominal Seizures Sleep apnea with use of continuous positive airway pressure (CPAP) Stress incontinence Umbilical hernia Family History Family History Father History of prostate cancer Maternal Aunt History of breast cancer Mother Hypertension Hyperlipidemia Brother Thyroid condition Hypertension Brother No problems noted. Son No problems noted. Daughter No problems noted. Surgical History Surgical History (Updated 01/06/22 @ 15:12 by JO ANN Wong) History of bilateral breast reduction surgery History of hysterectomy Hx of tubal ligation Social History Social History Are you a primary care management associate to a significant other at home: No Do you presently have visiting nurse or other home services: No Alcohol intake: never Patient Tobacco Use Status: Never used Tobacco Use of substances other than those prescribed or required for medical reasons: No Currently Displaying Signs/Symptoms of Drug Intoxication Withdrawal: No Have you been hit, kicked, punched, or otherwise hurt by someone within the past year? If so, by whom?: No Are you DNR?: No Advance Directives: No Advance Directives Information Provided: Yes (brochure mailed) Advance Directives on File: No Eating poorly because of decreased appetite: No Nutrition Risks: No Nutritional Risk Patient : No FDLMP: n/a Poor oral hygiene: No Meds Allergies Allergy/AdvReac Type Severity Reaction Status Date / Time Penicillins Allergy Severe Anaphylaxis Verified 01/06/22 10:47 aspirin Allergy Intermediate Rash Verified 01/06/22 10:47 seafood Allergy Intermediate Rash Verified 01/06/22 10:47 Home Medications Medication Instructions Recorded Confirmed Last Taken Type albuterol sulfate 90 mcg/actuation 2 puff INHALATION Q4-6H PRN 07/11/20 01/01/22 01/05/22 History aerosol inhaler atorvastatin 20 mg tablet 20 mg PO DAILY 07/11/20 01/01/22 01/05/22 History benzonatate 100 mg capsule 100 mg PO TID 07/11/20 01/01/22 01/05/22 History (Piper Pinedo) betamethasone dipropionate 0.05 % 1 applic TOPICAL DAILY PRN 07/11/20 01/01/22 01/05/22 History topical cream buspirone 10 mg tablet 5 mg PO BID 07/11/20 01/06/22 01/05/22 History kthegyrgzn-bwdwntiwbzcsd-jnwunrwc 1 cap PO Q4H PRN 07/11/20 01/01/22 01/05/22 History 50 mg-325 mg-40 mg capsule cholecalciferol (vitamin D3) 50 50 mcg PO DAILY 07/11/20 01/01/22 01/05/22 History mcg (2,000 unit) capsule citalopram 20 mg tablet 20 mg PO DAILY 07/11/20 01/01/22 01/05/22 History famotidine 40 mg tablet 40 mg PO BEDTIME 07/11/20 01/01/22 01/05/22 History fluticasone propionate 230 1 puff INHALATION BID g 07/11/20 01/01/22 01/05/22 History mcg-salmeterol 21 mcg/actuation HFA inhaler hydroxyzine HCl 50 mg tablet 50 mg PO BID 07/11/20 01/01/22 01/05/22 History metronidazole 0.75 % topical cream 1 applic TOPICAL BID 07/11/20 01/01/22 01/05/22 History sumatriptan succinate 100 mg 100 mg PO Q2-4H PRN 07/11/20 01/01/22 Unknown History tablet (Imitrex) topiramate 50 mg tablet 50 mg PO BID 07/11/20 01/01/22 01/05/22 History triamcinolone acetonide 0.1 % 1 applic TOPICAL BID 07/11/20 01/01/22 01/05/22 History topical cream gabapentin 300 mg capsule 300 mg PO BEDTIME 08/27/21 01/01/22 01/05/22 History metformin 500 mg tablet 500 mg PO DAILY 08/27/21 01/01/22 01/05/22 History oxybutynin chloride 5 mg tablet 5 mg PO DAILY 08/27/21 01/01/22 Unknown History bupropion HCl 75 mg tablet 1 tab PO DAILY 01/06/22 01/06/22 01/05/22 History Exam Exam Date and Time: January 02, 2022 0850 Height,Weight and Vital Signs: Height 5 ft 2 in Weight 88.054 kg Pertinent Lab Results Pertinent Lab Results: Laboratory Tests 12/30/21 12/30/21 12/30/21 07:48 07:50 07:50 WBC 6.1 RBC 5.04 Hgb 14.7 Hct 45.1 MCV 89.5 MCH 29.2 MCHC 32.6 RDW 13.5 Plt Count 292 MPV 10.0 Immature Gran % (Auto) 0.2 Neut % (Auto) 52.0 Lymph % (Auto) 32.9 [place] % (Auto) 13.7 H Eos % (Auto) 0.5 Baso % (Auto) 0.7 Lymph # (Auto) 2.0 [place] # (Auto) 0.8 Eos # (Auto) 0.0 Baso # (Auto) 0.0 Abs Immat Gran (auto) 0.01 Absolute Neuts (auto) 3.2 Absolute Nucleated RBC 0.000 Nucleated RBC % (auto) 0.0 PT 12.0 INR 1.1 APTT 32.1 Sodium Potassium Chloride Carbon Dioxide Anion Gap BUN Creatinine Estim Creat Clear Calc Estimated GFR Random Glucose Estimat Average Glucose Hemoglobin A1c % Insulin Level Calcium Total Bilirubin AST ALT Alkaline Phosphatase C-Reactive Protein Total Protein Albumin Triglycerides Cholesterol LDL Cholesterol, Calc HDL Cholesterol TSH Blood Type A Positive Antibody Screen NEGATIVE 12/30/21 12/30/21 07:50 07:50 WBC RBC Hgb Hct MCV MCH MCHC RDW Plt Count MPV Immature Gran % (Auto) Neut % (Auto) Lymph % (Auto) [place] % (Auto) Eos % (Auto) Baso % (Auto) Lymph # (Auto) [place] # (Auto) Eos # (Auto) Baso # (Auto) Abs Immat Gran (auto) Absolute Neuts (auto) Absolute Nucleated RBC Nucleated RBC % (auto) PT INR APTT Sodium 142 Potassium 4.1 Chloride 104 Carbon Dioxide 27 Anion Gap 15 BUN 13 Creatinine 1.08 Estim Creat Clear Calc TNP Estimated GFR 56 Random Glucose 109 Estimat Average Glucose 120 Hemoglobin A1c % 5.8 Insulin Level 26 Calcium 10.3 H Total Bilirubin 0.7 AST 22 ALT 33 H Alkaline Phosphatase 94 C-Reactive Protein 2.26 H Total Protein 7.8 Albumin 4.6 Triglycerides 93 Cholesterol 221 D LDL Cholesterol, Calc 155 HDL Cholesterol 48 TSH 1.06 Blood Type Antibody Screen Narrative Narrative: EKG 08/2021 Vent. Rate : 058 BPM ? ? Atrial Rate : 058 BPM ?? P-R Int : 146 ms? QRS Dur : 088 ms ? ? QT Int : 400 ms ? ? ? P-R-T Axes : 009 039 028 degrees ?? QTc Int : 392 ms ? Sinus bradycardia Otherwise normal ECG When compared with ECG of 12-JUN-2021 17:41, No significant change was found Assessment and Plan Assessment Anesthesia Assessment: Chart Reviewed Documented by User: Puneet Wellington MD 01/06/22 18:35 [facility] Past Medical History Medical History (Updated 01/01/22 @ 11:02 by Sharon Grider RN) Asthma BMI 38.0-38.9,adult COVID-19 vaccine series completed DJD (degenerative joint disease) GERD (gastroesophageal reflux disease) Hyperlipidemia Insomnia Migraine Morbid obesity Non-insulin dependent type 2 diabetes mellitus Obesity Ovarian low malignant potential tumor Pannus, abdominal Seizures Sleep apnea with use of continuous positive airway pressure (CPAP) Stress incontinence Umbilical hernia Family History Family History Father History of prostate cancer Maternal Aunt History of breast cancer Mother Hypertension Hyperlipidemia Brother Thyroid condition Hypertension Brother No problems noted. Son No problems noted. Daughter No problems noted. Family history of problems with anesthesia: Yes (As per patient , brother had bradycardia during anesthesia , does not know details. ) Surgical History Surgical History (Updated 01/06/22 @ 15:12 by JO ANN Wong) History of bilateral breast reduction surgery History of hysterectomy Hx of tubal ligation History of Problems with Anesthesia: No Social History Social History Are you a primary care management associate to a significant other at home: No Do you presently have visiting nurse or other home services: No Alcohol intake: never Patient Tobacco Use Status: Never used Tobacco Use of substances other than those prescribed or required for medical reasons: No Currently Displaying Signs/Symptoms of Drug Intoxication Withdrawal: No Have you been hit, kicked, punched, or otherwise hurt by someone within the past year? If so, by whom?: No Are you DNR?: No Advance Directives: No Advance Directives Information Provided: Yes (brochure mailed) Advance Directives on File: No Eating poorly because of decreased appetite: No Nutrition Risks: No Nutritional Risk Patient : No FDLMP: n/a Poor oral hygiene: No Meds Allergies Allergy/AdvReac Type Severity Reaction Status Date / Time Penicillins Allergy Severe Anaphylaxis Verified 01/06/22 10:47 aspirin Allergy Intermediate Rash Verified 01/06/22 10:47 seafood Allergy Intermediate Rash Verified 01/06/22 10:47 Home Medications Medication Instructions Recorded Confirmed Last Taken Type albuterol sulfate 90 mcg/actuation 2 puff INHALATION Q4-6H PRN 07/11/20 01/01/22 01/05/22 History aerosol inhaler atorvastatin 20 mg tablet 20 mg PO DAILY 1001/01/22 01/05/22 History benzonatate 100 mg capsule 100 mg PO TID 07/11/20 01/01/22 01/05/22 History (Piper Pinedo) betamethasone dipropionate 0.05 % 1 applic TOPICAL DAILY PRN 07/11/20 01/01/22 01/05/22 History topical cream buspirone 10 mg tablet 5 mg PO BID 07/11/20 01/06/22 01/05/22 History ubonzqercm-ozwajscgiwagt-bxnypjro 1 cap PO Q4H PRN 07/11/20 01/01/22 01/05/22 History 50 mg-325 mg-40 mg capsule cholecalciferol (vitamin D3) 50 50 mcg PO DAILY 07/11/20 01/01/22 01/05/22 History mcg (2,000 unit) capsule citalopram 20 mg tablet 20 mg PO DAILY 07/11/20 01/01/22 01/05/22 History famotidine 40 mg tablet 40 mg PO BEDTIME 07/11/20 01/01/22 01/05/22 History fluticasone propionate 230 1 puff INHALATION BID g 07/11/20 01/01/22 01/05/22 History mcg-salmeterol 21 mcg/actuation HFA inhaler hydroxyzine HCl 50 mg tablet 50 mg PO BID 07/11/20 01/01/22 01/05/22 History metronidazole 0.75 % topical cream 1 applic TOPICAL BID 07/11/20 01/01/22 01/05/22 History sumatriptan succinate 100 mg 100 mg PO Q2-4H PRN 07/11/20 01/01/22 Unknown History tablet (Imitrex) topiramate 50 mg tablet 50 mg PO BID 07/11/20 01/01/22 01/05/22 History triamcinolone acetonide 0.1 % 1 applic TOPICAL BID 07/11/20 01/01/22 01/05/22 History topical cream gabapentin 300 mg capsule 300 mg PO BEDTIME 08/27/21 01/01/22 01/05/22 History metformin 500 mg tablet 500 mg PO DAILY 08/27/21 01/01/22 01/05/22 History oxybutynin chloride 5 mg tablet 5 mg PO DAILY 08/27/21 01/01/22 Unknown History bupropion HCl 75 mg tablet 1 tab PO DAILY 01/06/22 01/06/22 01/05/22 History Exam Airway Mallampati Class: III TM Dist: >3cm Neck ROM: Full Loose/Missing/Broken Teeth: Yes (Chipped teeth ) Heart: S, S2 Lungs: b/l breath sounds Assessment and Plan Assessment Anesthesia Assessment: Anesthesia Plan Discussed Final Anesthetic Review Family History of Problems with Anesthesia: Yes (As per patient , brother had bradycardia during anesthesia , does not know details. ) History of Problems with Anesthesia: No NPO: Yes ASA Class: III Final Preanesthetic Review: No Changes in Pt Med Stat, Meds/Allgs Chart Reviewed, Consent Obtained/Reviewed and Anes Risks/Benef Reviewed Patient Risk: Intermediate Procedure Risk: Intermediate Anesthetic Plan Anesthetic Plan: GA Disposition: Inp. Admit - Standard Bed
--- NOTE | 2022-01-03 14:32 | MHC.SHP ---
Pre-Procedural Eval Section A Date of Service: 01/03/22 The patient is an INPATIENT: Yes The History & Physical has been completed within 30 days and I have reviewed it.: Yes Section B Chief Complaint: obesity Relevant Family History (Specify if Yes): No Relevant Social History: None Present Medications: None Medical History: No relevant PMH History of Previous Operations: No relevant previous surgery Allergies: Allergies Allergy/AdvReac Type Severity Reaction Status Date / Time Penicillins Allergy Severe Anaphylaxis Verified 01/01/22 09:25 aspirin Allergy Intermediate Rash Verified 01/01/22 09:25 seafood Allergy Intermediate Rash Verified 01/01/22 09:25 Review of Systems Sugical H&P ROS: Negative: Constitution, Cardiovascular, Respiratory, Neurological, Psychiatric, Hem-Onc, Allergic/Immunologic, Gastrointestinal, Genitourinary, Musculoskeletal, Integumentary, Endocrine and Eyes/Ears/Nose/Throat Exam Surgical H&P Exam: Normal: HEENT, Normal: Heart, Normal: Lungs, Normal: Extremities, Normal: Abdomen, Normal: Skin and Normal: Neurological Plan Diagnosis/Plan: Unchanged I have reviewed the history and physical and performed a pertinent physical examination on my patient. No changes have occurred unless specified.
[2022-01-06] VITALS (9 sets, daily range): BP systolic 115–137; BP diastolic 69–81; PULSE 63–73; RESP 15–23; TEMP 36–36.8; O2SAT 96–100
[2022-01-06 11:02] LABS: Glucose, Whole Blood 81 mg/dL (60-115)
[2022-01-06 11:24] LABS: COVID-19 Test Negative (Negative)
--- NOTE | 2022-01-06 11:29 | PHA.MEDREC ---
Pharmacy Consult ? Medication Reconciliation Pharmacy has completed the medication reconciliation.
[2022-01-06] MEDS: Lactated Ringers 1,000 ML 999 ML IV (11:33)
--- NOTE | 2022-01-06 11:54 | PM.OP ---
Brief Operative Note Date of Service: 01/06/22 Pre-op diagnosis: Severe obesity with a BMI of 38.6 kg/m2 with comorbidities (see below) Post-op diagnosis: same Procedure: INITIAL PATIENT BMI ON PRESENTATION AT OUR OFFICE: 38.6 kg/m2 LAST BMI BEFORE SURGERY: 34.4 kg/m2 COMORBIDITIES: sleep apnea on CPAP, non-insulin dependent diabetes, GERD, depression, migraines, stress incontinence, DJD, liver fibrosis ?The patient presented to the Weight Management Program with significant obesity that was negatively impacting the patient's comorbidities as listed above.? The program is a phased program with a special focus on preoperative medical weight management to promote substantial weight loss and prepare the patients for the second phase of the program: bariatric surgery. The patient participated in an intensive weekly lifestyle ?intervention and exercise program during which the patient ?has lost between the initial office visit and the last preoperative visit 16.8lbs, or 7.96% of initial actual body weight. It was deemed appropriate for the patient to now have bariatric surgery. In light of the current Covid-19 pandemic and the well documented strong association of obesity and increased risk of worse outcomes if infected with Covid-19 (REFERENCES:https://pubmed.ncbi.nlm.nih.gov/31392756/,?https://pubmed.ncbi.nlm.nih.gov/21002688/), any delay in undergoing bariatric surgery may lead to the patient's worsening health condition and increased?risk of more severe Covid-19 disease if infected. In addition a recent?study from [facility] published in [employer] on 09/15/2021 ([email or web address]) found that, among patients with obesity, substantial weight loss achieved with surgery was associated with improved outcomes of COVID-19 infection. The findings suggest that obesity can be a modifiable risk factor for the severity of COVID-19 infection. In addition, the patient met the BMI-criteria for bariatric surgery based on the BMI on initial presentation. The patient should not be penalized for achieving such weight loss because ?it is not sustainable long-term without surgical intervention and it was achieved in preparation for bariatric surgery ?under my direction and based on my published research ([email or web address] and?https://www.soard.org/article/[email or web address](76)36230-X/pdf) ?that a 10% preoperative weight loss improves long-term weight loss after surgery and reduces perioperative complications.? Insurance carriers such as [facility] have endorsed my recommendations ?and have included in their policies criteria to include a 10% preoperative weight loss requirement. PROCEDURE: Esophago-gastroscopy, laparoscopic repair of incarcerated diaphragmatic hernia, laparoscopic lysis of adhesions, laparoscopic sleeve gastrectomy and laparoscopic gastropexy INDICATIONS: This is a 41 year-old female who was electively scheduled for laparoscopic, possibly open sleeve gastrectomy. The risks and complications of the procedure were discussed with the patient in advance, particularly the possibility of ; pulmonary embolism; staple line leak; bleeding; GERD; cardiac, pulmonary, or renal complications; as well as long-term problems such as insufficient weight loss, vitamin deficiency, strictures, or ulcers. The patient understood all the risks, and was in agreement to proceed with surgery. DESCRIPTION OF PROCEDURE: After informed consent was obtained from the patient, the patient was given preoperative antibiotics, and was transferred to the operating room. After successful induction of general anesthesia, pneumatic compression devices were placed on both lower extremities. An upper endoscopy was performed next. The oropharynx and esophagus appeared to be within normal limits. There was no diaphragmatic hernia present, consistent with the findings of the preoperative upper GI. The stomach was entered. Then after all fluid and air were suctioned and the stomach was fully decompressed, the scope was withdrawn and secured in the mid esophagus. The patient was then prepped and draped in the usual sterile manner, and abdominal access was established at the right upper quadrant with the Emanuel technique. A 12 mm blunt port was inserted, and the abdomen was insufflated with CO2 to a pressure of 15 mmHg. Under direct visualization, additional ports were placed, specifically two 5 mm Versi-step ports to the left upper quadrant, and a 5 mm Versi-Step port to the right upper quadrant. 1% lidocaine plain was used to infiltrate all port sites as well as all fascia defects. Following that, the patient was placed in a steep reverse Trendelenburg position. An additional 5 mm port was placed to the right flank for the Mediflex retractor that was used to retract the left lobe of the liver. The gastro-esophageal fat pad was opened with the ultrasonic device (Thunderbeat, Olympus) and the anterior esophagus and hiatus were exposed. The angle of His was opened with the ultrasonic device the fundus of the stomach from any diaphragmatic and splenic attachments. I then opened the gastrocolic ligament between the transverse colon and the greater curvature of the stomach with the ultrasonic device to enter the lesser sac and facilitate the ligation of the short gastric vessels. I started at a mid-point along the greater curvature and using the Thunderbeat, all short gastric vessels were divided all the way to the angle of His until the left mary was completely dissected at its entirety. I then divided the gastro-colic ligament distally to a distance of about 3-4 cm proximal to the pylorus. The stomach was then divided transversely with one Endo IVANIA-45 purple, one IVANIA-60 purple load and three IVANIA-60 articulating orange loads using the AEON stapler and loads. Every effort was made that the gastric sleeve had a tubular shape and an even caliber throughout. Once the sleeve resection was completed, the staple line of the gastric sleeve was reinforced with Hemoclips. The resected stomach was retrieved without difficulty from the Emanuel port. A gastropexy was then performed in order to prevent postoperative GERD and partial gastric volvulus. Several interrupted 2.0 Surgidac sutures were placed between the sleeve's staple line and the previously divided greater omentum and gastro-colic ligament using the Endo-Stitch device. ?An upper endoscopy was performed. There was no narrowing at the GE junction. The scope was easily advanced all the way to the pylorus which was clearly visualized. There was no narrowing anywhere and the sleeve's caliber was even throughout. The sleeve's staple line was inspected and there was no evidence of ischemia, bleeding or dehiscence. At that point the gastroscope was withdrawn from the patient?s mouth while we were decompressing the bowel and the stomach from any remaining air. I looked into the lesser sac to see how the sleeve was situating and it was situating well. There was no bleeding from the staple line, spleen, or short gastric vessels. The Mediflex retractor was removed, and the undersurface of the liver was inspected and there was no bleeding. The patient was placed in supine position. As I was trying to suction any remaining fluid our of the right paracolic gutter where we position the specimen temporarily, I accidentally scratched the surface of the left liver love. Due to significant hepatomegaly and friability of extensive liver steatosis, about 100 ml of blood were lost. The bleeding was initially controlled with Surgicel. Once the bleeding was stopped, the superficial laceration was also cauterized. All blood was suctioned and the area was completely dry at the end. I closed the fascial defect of the 12 mm port site with a figure of eight #1 Polysorb suture. Then 100 cc 0.25 % Marcaine plain with 10 mg of Dexamethasone were used to infiltrate the fascial closure as well as all skin incisions. At this point, the abdomen was deflated, all ports were removed under direct vision, and no bleeding was noted from any of the port sites. The skin incisions were irrigated with saline and were closed with 4-0 absorbable monofilament sutures. Steri-Strips and OpSites were used to cover all incisions. The patient was extubated and was transferred in stable condition to the recovery room for further care. I was present and performed all richard parts of the procedure. Mr. Serrano was the physician assistant. There were no residents to assist with this case. Rohit Fisher MD, PhD, FACS Surgeon: El Fisher MD Anesthesia: GETA, local and other (TAP block) Was an International Coordinator used for this Procedure?: No International Coordinator: Anthony Serrano Estimated blood loss (mL): 100 IV fluids (mL): 2,800 Urine output (mL): 0 (No Moore to record) Pathology: other (Stomach) Condition: stable Disposition: PACU
--- NOTE | 2022-01-06 11:57 | PM.PNGS ---
Subjective Subjective Date of Service: 01/07/22 Interval history: Patient has mild incisional pain, but was able to ambulate and use the incentive spirometer. She is tolerating phase 1 bariatric diet Physical Exam Vital Signs: Vital Signs: Last Vital Signs Temp 97.7 F 01/06/22 11:00 Pulse 73 01/06/22 11:00 Resp 16 01/06/22 11:00 BP 137/81 01/06/22 11:00 Pulse Ox 99 01/06/22 11:00 BMI result Body Mass Index 35.5 GI: Inspection: Yes normal to inspection, Yes incision (clean, dry and intact) and Yes obesity Extrem: Right lower extremity: normal to inspection (no calf tenderness) Left lower extremity: normal to inspection (no calf tenderness) Objective Data Active Medications Albuterol Sulfate (Albuterol Sulfate (0.083%) 2.5 Mg/3 Ml Vial.Neb) 2.5 mg INHALE ONCE PRN PRN Reason: Shortness of Breath/Wheezing Lactated Ringer's (Lr) 1,000 mls @ 100 mls/hr IVCONT .Q10H FAREED Labs CBC & Chem 7: 01/07/22 05:49 01/07/22 05:49 Labs: Laboratory Results - last 24 hr 01/06/22 01/06/22 10:40 10:59 POC Glucose 81 COVID-19 ([facility]) Negative COVID-19 Clin Com See Note Procedures Date of Service Date of Service: 01/07/22 Progress Note: A&P Assessment and plan (1) Obesity: Status: Acute Assessment and Plan: s/p laparoscopic sleeve gastrectomy, lysis of adhesions repair of diaphragmatic hernia, and gastropexy Doing well Check am labs. If OK, will discharge home? (2) BMI 34.0-34.9,adult: Status: Acute (3) DJD (degenerative joint disease): Status: Acute (4) Stress incontinence: Status: Acute (5) GERD (gastroesophageal reflux disease): Status: Acute (6) Hyperlipidemia: Status: Acute (7) Sleep apnea with use of continuous positive airway pressure (CPAP): Status: Acute (8) Non-insulin dependent type 2 diabetes mellitus: Status: Acute (9) Umbilical hernia: Status: Acute (10) Migraine: Status: Acute (11) Asthma: Status: Acute (12) S/P laparoscopic sleeve gastrectomy: Status: Acute Fall Risk Details Current Medications: Current Medications Albuterol Sulfate (Albuterol Sulfate (0.083%) 2.5 Mg/3 Ml Vial.Neb) 2.5 mg INHALE ONCE PRN PRN Reason: Shortness of Breath/Wheezing Lactated Ringer's (Lr) 1,000 mls @ 100 mls/hr IVCONT .Q10H FAREED Time Spent With Patient Time: Total time spent is greater than 50% in coordination of care (as documented) at patient's floor/unit and/or counseling patient: Quality Stroke Does the patient have a stroke diagnosis?: No VTE Prior VTE?: No VTE Risk Level:: Surgical - moderate VTE Device Contraindication: N/A - Device Ordered VTE Drug Contraindication: Treatment Not Indicated
[2022-01-06] MEDS: levoFLOXacin/D5W 500 MG/100 ML PIGGYBACK 100 MG IV (12:14)
--- NOTE | 2022-01-06 15:17 | PM.DS ---
DS: Providers Provider Date of Service: 01/07/22 Date of admission: 01/06/22 10:33 Primary care physician: Simona Gaston MD DS: Diagnosis Discharge Diagnosis (1) Obesity: Status: Acute (2) BMI 34.0-34.9,adult: Status: Acute (3) DJD (degenerative joint disease): Status: Acute (4) Stress incontinence: Status: Acute (5) GERD (gastroesophageal reflux disease): Status: Acute (6) Hyperlipidemia: Status: Acute (7) Sleep apnea with use of continuous positive airway pressure (CPAP): Status: Acute (8) Non-insulin dependent type 2 diabetes mellitus: Status: Acute (9) Umbilical hernia: Status: Acute (10) Migraine: Status: Acute (11) Asthma: Status: Acute DS: Summary Hospital Course Hospital Course: ADMITTING DIAGNOSIS: obesity, seizure do, GERD, JANNY, DM, hyperlipidemia, vitamin deficiency, asthma ? DISCHARGE DIAGNOSIS: same, s/p laparoscopic sleeve gastrectomy ? PAST SURGICAL HISTORY: breast reduction, hysterectomy, tubal ligation ? PROCEDURE: upper endoscopy, laparoscopic sleeve gastrectomy ? DISCHARGE SUMMARY: ? History of Present Illness: ? The patient is a?41 year-old woman with a BMI of?38.5 kg/m2 and associated co-morbidities as described above. The patient had extensive work-up,lost?16.8 lbs preoperatively and was electively scheduled for laparoscopic, possible open sleeve gastrectomy and gastropexy. Risks and complications of the surgery were discussed with the patient in advance, particularly the possibility of , pulmonary embolism, anastomotic leak, bleeding, bowel injury, GERD, cardiac, renal or pulmonary complications. The patient understood all the risks and was in agreement with the surgical plan. ? Hospital Course: ? The patient underwent an uneventful laparoscopic sleeve gastrectomy with gastropexy on the day of admission. Postoperatively, the patient was transferred to the surgical floor. The patient received IV Acetaminophen and IV dilaudid for pain control. Patient was started on bariatric phase 1 diet POD #0. On postoperative day one, the patient was feeling well without nausea, vomiting, fevers, or tachycardia. The patient had some mild incisional pain and the abdomen was soft. ? On the morning of postoperative day one, the patient was continued on 1 ounce of water or ice every half hour. During the day, the patient did fairly well, having some incisional pain, but able to ambulate adequately and to tolerate liquids well. ? Since the patient is doing well, we decided that the patient was ready to be discharged. The patient was given instructions to follow-up with me next week and to call my office for any fever over 101, persistent abdominal pain, nausea, vomiting, GERD, symptoms of DVT such as calf tenderness, or leg swelling, or pulmonary embolism such as chest pain or shortness of breath. The patient was also instructed to drink 40-60 ounces of liquids per day using the 1-ounce cups. The patient had been given prescriptions for Tylenol for pain, Zofran prn for nausea, and pantoprazole and carafate previously. The patient was encouraged to ambulate and use the incentive spirometer. The patient was allowed to shower, but no baths, and encouraged to stay active at home. All of these instructions were given to the patient personally. All questions were answered and the patient understood all instructions, the instructions were also given to the patient in print. Time Spent with Patient Time attestation: Total time spent providing and/or coordinating discharge services: Discharge coordination time: Less than 30 minutes Quality: Safe Use of Opioids Does Pt have an Active Cancer Diagnosis on the Problem List?: No Quality: Stroke Does the patient have a stroke diagnosis?: No Physical Exam Vital Signs: Vital Signs: Last Vital Signs Temp 98.2 F 01/06/22 15:07 Pulse 73 01/06/22 15:12 Resp 18 01/06/22 15:12 BP 115/69 01/06/22 15:12 Pulse Ox 99 01/06/22 15:12 BMI result Body Mass Index 35.5 DS: Data Data Completed and Pending Pending studies at discharge: Pending at discharge 01/06/22 13:31 Surgical [PTH] Routine Labs on day of discharge: Laboratory Results - last 24 hr 01/06/22 01/06/22 10:40 10:59 POC Glucose 81 COVID-19 ([facility]) Negative COVID-19 Clin Com See Note Discharge Plan Discharge Patient Disposition: Home, Self-Care Discharge Diagnosis: s/p laparoscopic sleeve gastrectomy Referrals: Simona Ribeiro MD [Primary Care Provider] - 1 Week Discharge Medications: Continued bupropion HCl 75 mg tablet 1 tab PO DAILY 0RF topiramate 50 mg tablet 50 mg PO BID 0RF atorvastatin 20 mg tablet 20 mg PO DAILY 0RF citalopram 20 mg tablet 20 mg PO DAILY 0RF fluticasone propion-salmeterol 230-21 mcg/actuation HFA aerosol inhaler 1 puff inhalation BID 0RF sumatriptan succinate [Imitrex] 100 mg tablet 100 mg PO Q2-4H PRN (Reason: Migraine Headache) 0RF Rx Instructions: do not exceed 2 doses per 24 hrs benzonatate [Tessalon Perles] 100 mg capsule 100 mg PO TID 0RF zqzmsvynvh-vxanwizcsdmzc-ikcr 50-325-40 mg capsule 1 cap PO Q4H PRN (Reason: Migraine Headache) 0RF buspirone 10 mg tablet 5 mg PO BID 0RF triamcinolone acetonide 0.1 % cream 1 applic topical BID 0RF albuterol sulfate 90 mcg/actuation HFA aerosol inhaler 2 puff inhalation Q4-6H PRN (Reason: Wheezing) 0RF metronidazole 0.75 % cream 1 applic topical BID 0RF hydroxyzine HCl 50 mg tablet 50 mg PO BID 0RF betamethasone dipropionate 0.05 % cream 1 applic topical DAILY PRN (Reason: Rash) 0RF oxybutynin chloride 5 mg tablet 5 mg PO DAILY 0RF gabapentin 300 mg capsule 300 mg PO BEDTIME 0RF pantoprazole 40 mg tablet,delayed release (DR/EC) 40 mg PO DAILY Qty: 30 2RF Held metformin 500 mg tablet 500 mg PO DAILY 0RF Hold Instructions: until discussed with Dr Fisher Discontinued cholecalciferol (vitamin D3) 50 mcg (2,000 unit) capsule 50 mcg PO DAILY 0RF famotidine 40 mg tablet 40 mg PO BEDTIME 0RF vitamin A palmitate 10,000 unit capsule 10,000 unit PO .COMPLEX Qty: 30 2RF Rx Instructions: 10,000 units PO one per day; mecobalamin (vitamin B12) 1,000 mcg tablet,disintegrating 1,000 mcg sublingual DAILY Qty: 30 2RF Rx Instructions: place tablet under tongue and allow to dissolve for at least30 secs before swallowing Discharge Orders: Discharge Order (Routine); Ordered 01/07/22 Ordered By: El Fisher Diet: other Activity on Discharge: No heavy lifting Stand Alone Forms: Patient Portal Discharge page Care Plan Goals: weight loss Health Concerns: obesity Plan of Treatment: No tub baths, sex or returning to work until discussed at first post op appointment. No exercise, alcohol, tobacco or illegal drug use. Continue to use incentive spirometer hourly while awake. Walk in home for 5- 10 minutes every 2 hours during the first week. Follow all instructions in the bariatric handbook and call with any questions.Discharge Instructions 1. Please call your doctor or come back to the emergency room should any new symptoms arise. 2. You will receive a courtesy call from [facility] 24-48 hours after discharge. 3. Activity: abstain from alcohol, practice limited stair climbing, no bending, no driving, no exercise, no illicit substances, no lifting, no sex, no tub bath, no work. 4. Diet: continue as discussed with Dr. Fisher. 5. Dressing Change/Wound Care: Your incision is covered by clear bandages and guaze underneath. If the area is tender, you may apply an ice pack for short intervals (no more than 20 minutes on, followed by at least 20 minutes off). Do not apply heat. Do not use creams, lotions, or topical antibiotics unless instructed to do so by your surgeon. These can cause infection or allergic reaction. 6. Call your doctor if: - Your temperature exceeds 101.5 F - You experience excessive pain or swelling - You have an unexpected reaction to medication - You have excessive bleeding - You experience continued vomiting/nausea - Your incision begins to separate - Your incision shows signs of infection such as increased redness, swelling, excessive pain, heat, or drainage (light blood or clear fluid is normal) 7. General instructions: No lifting greater than 5 lbs for the next 4 weeks[address] within 24 hours of taking narcotic pain medications. If you do not move your bowels in the next 2 days, please take milk of magnesia over the counter. Please follow the post op diet and do not advance your diet until you are seen in the office in about 2 weeks. Please walk around your home every hour or two to prevent blood clots from forming in your legs. You do not need to wake from sleeping to walk. Please sleep in a bed or couch to prevent kinking at the hips and knees. Please take your incentive spirometer (your lung shoe repair cobbler) home with you and use it for the next few days to prevent pneumonias. You may shower, no hot tubs, baths or swimming pools. Please call the office with any questions or concerns such as increasing abdominal pain, fever, chills, shortness of breath, chest pain, leg pain or swelling, or redness or drainage from your incisions. Please stay on stage 3 diet which includes sugar free clear liquids such as ice pops and jello and broth and crystal light. Avoid all carbonation. Please drink 3 protein shakes with at least 25-30 grams of protein daily or 3 of the Celebrate 4:1 shakes which can be purchased in our office. The Celebrate shakes have all of the bariatric vitamins you need if you consume these shakes. If you are drinking other protein shakes, you will need to purchase the Celebrate multivitamins and calcium that we provide in the office (they will provide all the vitamins you need). Please make sure you are consuming at least 40-60 ounces of water in addition to your 3 protein shakes daily. Do not hesitate to contact the office with any questions at . The patient's medical history has been reviewed and they are considered low risk for post op DVT and therefore DVT prophylaxis is not considered necessary. Travel after surgery was reviewed. The patient has not disclosed any travel plans during the first 30 days after surgery and they have been advised that within the first 30 days after surgery any bus, plane, train or car travel over 2 hours in duration is contraindicated due to the possibility of developing blood clots from immobility. Any travel, needs to include periods of ambulation of 10 minutes in duration every 2 hours.? The patient was instructed to discuss any plans for travel during this period with their bariatric surgeon. Assessment: stable s/p laparoscopic sleeve gastrectomy
[2022-01-06] MEDS: Famotidine/PF 20 MG/2 ML VIAL IVPUSH ×2 (15:20→21:12)
[2022-01-06 15:31] LABS: Hematocrit 36.5 % (37.0-47.0); Hemoglobin 11.8 g/dl (12.0-16.0)
[2022-01-06] MEDS: Lactated Ringers 1,000 ML 150 ML IVCONT ×2 (15:40→21:17)
[2022-01-06 15:47] LABS: Anion Gap 13 (12-20); Blood Urea Nitrogen 11 mg/dL (9-16); Carbon Dioxide 23 mmol/L (22-29); Chloride 106 mmol/L (96-108); Creatinine Clr Calc Pharmacy 77.8; Estimated Glomerular Filt Rate > 60; Glucose Random 148 mg/dL (60-115); Potassium 4.3 mmol/L (3.3-5.1); Sodium 138 mmol/L (135-145)
--- NOTE | 2022-01-06 19:47 | PC.RT ---
pt refusing CPAP at this time
[2022-01-06 21:03] LABS: Hematocrit 36.3 % (37.0-47.0); Hemoglobin 12.2 g/dl (12.0-16.0)
[2022-01-06] MEDS: 0.9 % Sodium Chloride Flush 3 ML SYRINGE IVFLUSH (21:12)
[2022-01-06] MEDS: HYDROmorphone HCl 0.5 MG/0.5 ML SYRINGE 0.25 MG IVPUSH (23:37)
[2022-01-06] MEDS: ondansetron HCL 4 MG/2 ML VIAL IVPUSH (23:39)
[2022-01-07] VITALS: BP 131/64; PULSE 76; RESP 18; TEMP 36.7; O2SAT 98
[2022-01-07 03:44] VITALS: BP 121/62; PULSE 59; RESP 18; TEMP 36.6; O2SAT 93
[2022-01-07] MEDS: Lactated Ringers 1,000 ML 150 ML IVCONT (04:49)
[2022-01-07 05:55] LABS: MANUAL DIFF FLAG NO
[2022-01-07 06:17] LABS: Anion Gap 13 (12-20); Basophils Percent Auto 0.1 % (0-2); Blood Urea Nitrogen 9 mg/dL (9-16); Calcium 9.4 mg/dL (8.4-10.2); Carbon Dioxide 24 mmol/L (22-29); Chloride 107 mmol/L (96-108); Creatinine Clr Calc Pharmacy 83.8; Estimated Glomerular Filt Rate > 60; Glucose Random 125 mg/dL (60-115); Hematocrit 34.1 % (37.0-47.0); Hemoglobin 11.2 g/dl (12.0-16.0); Imm Gran Abs Auto 0.05 X10*3/uL (0.00-0.03); Imm Gran Pct Auto 0.5 % (0.0-0.4); Lymphocytes Percent Auto 9.1 % (20-40); Mean Corpuscular HGB Conc 32.8 g/dl (31.0-35.0); Mean Corpuscular Hemoglobin 28.9 pg (27.0-33.0); Mean Corpuscular Volume 87.9 fL (80.0-98.0); Mean Platelet Volume 10.2 fL (9.4-12.3); Monocytes Absolute Auto 0.5 X10*3/uL (0.1-1.2); Monocytes Percent Auto 4.3 % (2-11); Neutrophils Absolute Auto 9.3 x10*3/uL (2.0-8.3); Platelet Count 276 X10*3/uL (160-400); Potassium 3.9 mmol/L (3.3-5.1); Red Blood Count 3.88 X10*6/uL (4.20-5.50); Red Cell Distribution Width 13.2 % (11.0-16.0); Sodium 140 mmol/L (135-145); White Blood Count 10.8 X10*3/uL (4.8-10.8)
[2022-01-07] MEDS: Famotidine/PF 20 MG/2 ML VIAL IVPUSH (07:14)
[2022-01-07] MEDS: ondansetron HCL 4 MG/2 ML VIAL IVPUSH (07:14)
[2022-01-07 08:00] VITALS: BP 134/69; PULSE 52; RESP 18; TEMP 36.7; O2SAT 96
--- NOTE | 2022-01-07 09:25 | HO.POSTANES ---
Post Anesthesia Evaluation Post Anesthesia Evaluation Vital Signs: Vital Signs Temp Pulse Resp BP Pulse Ox 01/07/22 08:00 98.1 F 52 18 134/69 96 01/07/22 03:44 97.9 F 59 18 121/62 93 01/07/22 00:00 98.1 F 76 18 131/64 98 Anesthesia: General Endotracheal-GETA Mental Status: Awake Pain Control: Satisfactory Nausea/Vomiting: None Hydration: Adequate Anesthesia-Related Issues: No Anes. Related Issues
--- NOTE | 2022-01-07 09:37 | MHC.CM.PN ---
pt dcd home no skilled servceis ordered by
== END 2022-01-07 09:14 | disposition home or self-care (01) | DRG 403 ==
LOC: HO.SSSA 10:58 → HO.S3 14:48
PROVIDERS: Nurse Practitioner; Physician Assistant Surgical; Admitting Provider Surgery; PCP Internal Medicine; Visit Provider Surgery
PROC: 0DB64Z3 Excision of Stomach, Percutaneous Endoscopic Approach, Vertical (ICD-10-PCS; CPT 43845; principal; 2022-01-06 12:40)
DX: E66.01 Morbid (severe) obesity due to excess calories (principal); K74.00 Hepatic fibrosis, unspecified; E11.9 Type 2 diabetes mellitus without complications; F32.A Depression, unspecified; G47.30 Sleep apnea, unspecified; Z68.35 Body mass index [BMI] 35.0-35.9, adult; K21.9 Gastro-esophageal reflux disease without esophagitis; G43.909 Migraine, unspecified, not intractable, without status migrainosus; N39.3 Stress incontinence (female) (male); Z91.013 Allergy to seafood; Z20.822 Contact with and (suspected) exposure to COVID-19; Z88.0 Allergy status to penicillin; J45.909 Unspecified asthma, uncomplicated; Z98.51 Tubal ligation status; Z88.6 Allergy status to analgesic agent; Z79.51 Long term (current) use of inhaled steroids; Z79.84 Long term (current) use of oral hypoglycemic drugs; Z79.899 Other long term (current) drug therapy
CPT/HCPCS: 36415; 80048; 80053; 80061; 82947; 83036; 83525; 84443; 85014; 85018; 85025; 85610; 85730; 86140; 86850; 86900; 86901; 87635; 88307; 88342; 99024; A4649; C9399; J0131; J1100; J1170; J1200; J1956; J2250; J2405; J3010

== ENCOUNTER → 2022-01-13 14:06 | Outpatient (BNVA) | payer MEDICAID, SELFPAY | PROVIDERS: PCP Internal Medicine; Referring Provider Internal Medicine; Visit Provider Surgery | DX: E66.9 Obesity, unspecified (principal); K59.00 Constipation, unspecified; Z79.899 Other long term (current) drug therapy; Z71.3 Dietary counseling and surveillance; Z48.815 Encounter for surgical aftercare following surgery on the digestive system; Z98.84 Bariatric surgery status | CPT/HCPCS: 99212 ==

== ENCOUNTER → 2022-01-16 08:15 | Outpatient (BNVA) | payer MEDICAID, SELFPAY | PROVIDERS: PCP Internal Medicine; Referring Provider Internal Medicine; Visit Provider Surgery | DX: Z91.89 Other specified personal risk factors, not elsewhere classified (principal) | CPT/HCPCS: 99212 ==

== ENCOUNTER → 2022-02-12 11:00 | Outpatient (BNVA) | payer MEDICAID, SELFPAY | PROVIDERS: PCP Internal Medicine; Visit Provider Physician Assistant | DX: E66.9 Obesity, unspecified (principal); Z98.84 Bariatric surgery status; Z68.34 Body mass index [BMI] 34.0-34.9, adult | CPT/HCPCS: 99212 ==

== ENCOUNTER 2022-04-01 07:25 | Outpatient (REF) | payer MEDICAID, SELFPAY ==
--- NOTE | ~2022-04-01 | XR_ITS ---
EXAMINATION: XR LUMBOSACRAL SPINE CLINICAL INFORMATION: Back pain COMPARISON: None TECHNIQUE: Three views of the lumbosacral spine. FINDINGS: The vertebral bodies and posterior elements are normal. The disc spaces are preserved and the vertebral alignment is normal. The paraspinal soft tissues are normal. XR/XR lumbar spine 2-3V IMPRESSION: No significant osseous changes to explain patient's pain symptoms, if patient remain symptomatic may consider correlation with follow-up MRI.
== END 2022-04-01 07:26 | disposition home or self-care (01) ==
LOC: HO.XRAY 07:25
PROVIDERS: PCP Internal Medicine; Visit Provider Internal Medicine
DX: M54.50 Low back pain, unspecified (principal)
CPT/HCPCS: 72100

== ENCOUNTER → 2022-05-29 14:21 | Outpatient (BNVA) | payer MEDICAID, SELFPAY | PROVIDERS: PCP Internal Medicine; Visit Provider Nurse Practitioner Family | DX: M19.90 Unspecified osteoarthritis, unspecified site (principal); M62.830 Muscle spasm of back; M54.59 Other low back pain; M47.816 Spondylosis without myelopathy or radiculopathy, lumbar region; M46.1 Sacroiliitis, not elsewhere classified; M53.3 Sacrococcygeal disorders, not elsewhere classified | CPT/HCPCS: 99202 ==

== ENCOUNTER 2022-06-26 08:25 | Outpatient (REF) | payer MEDICAID, SELFPAY ==
[2022-06-26 08:41] LABS: MANUAL DIFF FLAG NO
[2022-06-26 09:16] LABS: Basophils Percent Auto 0.6 % (0-2); Eosinophils Absolute Auto 0.1 X10*3/uL (0.0-0.4); Eosinophils Percent Auto 1.7 % (0-4); Hematocrit 40.9 % (37.0-47.0); Hemoglobin 13.3 g/dl (12.0-16.0); Imm Gran Abs Auto 0.01 X10*3/uL (0.00-0.03); Imm Gran Pct Auto 0.2 % (0.0-0.4); Lymphocytes Absolute Auto 2.3 X10*3/uL (1.2-4.9); Mean Corpuscular HGB Conc 32.5 g/dl (31.0-35.0); Mean Corpuscular Hemoglobin 28.8 pg (27.0-33.0); Mean Corpuscular Volume 88.5 fL (80.0-98.0); Mean Platelet Volume 9.8 fL (9.4-12.3); Monocytes Absolute Auto 0.4 X10*3/uL (0.1-1.2); Neutrophils Absolute Auto 1.9 x10*3/uL (2.0-8.3); Neutrophils Percent Auto 40.5 % (45-73); Platelet Count 352 X10*3/uL (160-400); Red Blood Count 4.62 X10*6/uL (4.20-5.50); Red Cell Distribution Width 13.6 % (11.0-16.0); White Blood Count 4.7 X10*3/uL (4.8-10.8)
[2022-06-26 09:42] LABS: Estimated Average Glucose 117 mg/dL; Hemoglobin A1c % 5.7 %
[2022-06-26 09:50] LABS: Alanine Aminotransferase 20 U/L (0-31); Albumin Level 4.5 g/dL (3.5-5.0); Alkaline Phosphatase 78 U/L (39-117); Anion Gap 14 (12-20); Aspartate Amino Transferase 19 U/L (5-31); Bilirubin Total 0.5 mg/dL (0.0-1.0); Blood Urea Nitrogen 9 mg/dL (9-16); C Reactive Protein 0.11 mg/dL (< or = 0.50); Calcium 9.9 mg/dL (8.4-10.2); Carbon Dioxide 30 mmol/L (22-29); Chloride 105 mmol/L (96-108); Cholesterol 226 mg/dL; Estimated Glomerular Filt Rate > 60; Glucose Random 85 mg/dL (60-115); HDL Cholesterol 53 mg/dL; Iron 124 mcg/dL (30-160); LDL Cholesterol Calculated 151 mg/dl; Percent Iron Saturation 44 % (15-50); Potassium 4.2 mmol/L (3.3-5.1); Sodium 145 mmol/L (135-145); Total Iron Binding Capacity 279 mcg/dL (228-428); Total Protein 7.3 g/dL (6.5-8.0); Triglycerides 114 mg/dL; Unsaturated Iron Binding 155 ug/dL
[2022-06-26 10:17] LABS: Ferritin 313 ng/mL (10-250); Vitamin D 25-OH Total 27.3 ng/mL (>30)
[2022-06-26 10:48] LABS: Folate 9.3 ng/mL (> or = 4.0); Vitamin B12 539 pg/mL (200-900)
[2022-06-26 11:33] LABS: Insulin 19 uU/mL (2-29)
[2022-06-28 13:41] LABS: PTHI 57 pg/mL (16-77)
[2022-06-30 08:12] LABS: Vitamin B1 9 nmol/L (8-30)
[2022-07-01 06:12] LABS: Zinc 92 mcg/dL (60-130)
[2022-07-01 17:33] LABS: Vitamin A 54 mcg/dL (38-98)
== END 2022-06-26 08:26 | disposition home or self-care (01) ==
LOC: HO.LAB 08:25
PROVIDERS: PCP Internal Medicine; Visit Provider Physician Assistant Surgical
DX: Z98.84 Bariatric surgery status (principal)
CPT/HCPCS: 36415; 80053; 80061; 82306; 82607; 82728; 82746; 83036; 83525; 83540; 83970; 84425; 84443; 84590; 84630; 85025; 86140

== ENCOUNTER → 2022-07-17 08:21 | Outpatient (BNVA) | payer MEDICAID, SELFPAY | PROVIDERS: PCP Internal Medicine; Referring Provider Internal Medicine; Visit Provider Surgery | DX: Z91.89 Other specified personal risk factors, not elsewhere classified (principal); Z41.1 Encounter for cosmetic surgery; Z90.710 Acquired absence of both cervix and uterus; Z80.3 Family history of malignant neoplasm of breast | CPT/HCPCS: 99212 ==

== ENCOUNTER → 2022-08-31 09:22 | Outpatient (BNVA) | payer MEDICAID, SELFPAY | PROVIDERS: PCP Internal Medicine; Visit Provider Nurse Practitioner Family | DX: M53.3 Sacrococcygeal disorders, not elsewhere classified (principal); M46.1 Sacroiliitis, not elsewhere classified; M54.59 Other low back pain; M47.816 Spondylosis without myelopathy or radiculopathy, lumbar region; M62.830 Muscle spasm of back; M19.90 Unspecified osteoarthritis, unspecified site | CPT/HCPCS: 99212 ==

== ENCOUNTER → 2022-09-16 09:20 | Outpatient (BNVA) | payer MEDICAID, SELFPAY | PROVIDERS: PCP Internal Medicine; Visit Provider Physician Assistant Surgical | DX: E66.3 Overweight (principal); Z68.29 Body mass index [BMI] 29.0-29.9, adult; Z98.84 Bariatric surgery status | CPT/HCPCS: 99212 ==

== ENCOUNTER → 2022-09-24 09:35 | Outpatient (BNVA) | payer MEDICAID, SELFPAY | PROVIDERS: PCP Internal Medicine; Visit Provider Obstetrics & Gynecology | DX: Z13.89 Encounter for screening for other disorder (principal) ==

== ENCOUNTER 2022-10-14 09:09 | Outpatient (REF) | payer MEDICAID, SELFPAY ==
--- NOTE | ~2022-10-14 | MR_ITS ---
EXAMINATION: MR BREAST WITHOUT AND WITH CONTRAST, BILATERAL CLINICAL INFORMATION: High risk screening. Family history of breast cancer. Prior reduction surgery. The estimated lifetime risk of developing breast cancer is 34%. COMPARISON: Portions of a previous MRI 11/13/2021. Mammography (nondiagnostic monitor review): 09/23/2021. TECHNIQUE: A 1.5 T system and a dedicated breast coil. T1-weighted sequences without fat-saturation were obtained prior to the administration of contrast. Fat-saturated T1- and T2-weighted sequences were also acquired. The patient received 7.5 mL of IV gadolinium-based contrast, Gadavist. Multiple sequential dynamic T1-weighted sequences were obtained through both breasts with fat-saturation. Subtracted images were reviewed. CAD postprocessing with 3-D reconstructions, maximum intensity projections and kinetic analysis was performed by the interpreting radiologist at an independent workstation and reviewed as a portion of this exam. FINDINGS: Amount of Remaining Fibroglandular Signal: The breasts are almost entirely fatty (ACR BI-RADS breast composition category A).* Background Parenchymal Enhancement: Minimal. Symmetry of Background Enhancement: Symmetric. RIGHT BREAST: There are no suspicious findings. Masses: There are no suspicious enhancing masses. Non-mass Enhancement: There is no suspicious non-mass enhancement. Focus: There are no suspicious enhancing foci. Non-enhancing Findings: Associated Findings: There are no suspicious associated findings. Findings consistent with previous reduction surgery. Kinetic Curve Assessment: Initial Phase: There are no suspicious areas of color signal. Delayed Phase: There are no areas of washout kinetics. LEFT BREAST: There are no suspicious findings. Masses: There are no suspicious enhancing masses. Non-mass Enhancement: There is no suspicious non-mass enhancement. Focus: There are no suspicious enhancing foci. Non-enhancing Findings: Associated Findings: There are no suspicious associated findings. Findings consistent with previous reduction surgery. Kinetic Curve Assessment: Initial Phase: There are no areas of suspicious color signal. Delayed Phase: There are no areas of washout kinetics. The axillary lymph nodes are morphologically normal. No suspicious internal mammary lymph nodes are seen. No suspicious abnormality in the visualized portions of chest or abdomen. Cholelithiasis. MR/MR breast BI wo/w con IMPRESSION: No MR evidence of malignancy No suspicious interval change. ASSESSMENT: Right Breast: ACR BI-RADS 2: Benign finding. Left Breast: ACR BI-RADS 2: Benign finding. RECOMMENDATIONS: Continue screening.
== END 2022-10-14 09:10 | disposition home or self-care (01) ==
LOC: HO.MRI 09:09
PROVIDERS: Visit Provider Obstetrics & Gynecology
DX: Z91.89 Other specified personal risk factors, not elsewhere classified (principal)
CPT/HCPCS: 77049; A9585

== ENCOUNTER 2022-10-30 02:39 | Emergency (ER) | payer MEDICAID, SELFPAY ==
[2022-10-30 02:51] VITALS: BP 156/91; PULSE 72; RESP 20; TEMP 36.3; O2SAT 98; BMI 28.7
[2022-10-30 03:14] VITALS: BP 137/84; PULSE 62; RESP 18; O2SAT 99
[2022-10-30 03:23] LABS: MANUAL DIFF FLAG NO
[2022-10-30 03:24] LABS: Basophils Percent Auto 0.7 % (0-2); Eosinophils Absolute Auto 0.2 X10*3/uL (0.0-0.4); Eosinophils Percent Auto 3.3 % (0-4); Hemoglobin 13.3 g/dl (12.0-16.0); Imm Gran Abs Auto 0.01 X10*3/uL (0.00-0.03); Imm Gran Pct Auto 0.2 % (0.0-0.4); Lymphocytes Absolute Auto 2.9 X10*3/uL (1.2-4.9); Mean Corpuscular HGB Conc 33.3 g/dl (31.0-35.0); Mean Corpuscular Hemoglobin 29.2 pg (27.0-33.0); Mean Corpuscular Volume 87.7 fL (80.0-98.0); Mean Platelet Volume 9.4 fL (9.4-12.3); Monocytes Absolute Auto 0.5 X10*3/uL (0.1-1.2); Neutrophils Absolute Auto 2.1 x10*3/uL (2.0-8.3); Neutrophils Percent Auto 35.8 % (45-73); Platelet Count 293 X10*3/uL (160-400); Red Blood Count 4.56 X10*6/uL (4.20-5.50); Red Cell Distribution Width 12.4 % (11.0-16.0); White Blood Count 5.8 X10*3/uL (4.8-10.8)
[2022-10-30 03:25] LABS: Appearance Urine Clear; Color Urine Yellow; Glucose Urine UA Negative (Negative); Leukocyte Esterase Urine Trace (Negative); Nitrite Urine Negative (Negative); Specific Gravity - Urine <= 1.005 (1.005-1.025); UMIC TRIGGER UACC YES; Urine Blood Trace (Negative); Urine Ketones Negative (Negative); Urine Protein Negative (Neg-Trace)
[2022-10-30 03:38] LABS: Bacteria Urine None Seen (None Seen); Hyaline Casts Urine 0-2 /LPF (0-2); RBC Urine 0-2 /HPF (0-2); Squamous Epithelial Cell Urine 0-2 /HPF (0-2); WBC Urine 0-5 /HPF (0-5)
[2022-10-30 03:49] LABS: Anion Gap 17 (12-20); Blood Urea Nitrogen 15 mg/dL (9-16); Calcium 9.7 mg/dL (8.4-10.2); Carbon Dioxide 25 mmol/L (22-29); Chloride 105 mmol/L (96-108); Creatinine Clr Calc Pharmacy 69.6; Estimated Glomerular Filt Rate > 60; Glucose Random 99 mg/dL (60-115); Potassium 4.1 mmol/L (3.3-5.1); Sodium 143 mmol/L (135-145)
--- NOTE | 2022-10-30 03:50 | ED.FEMALEGU ---
HPI - Female Genitourinary General Chief complaint: Urogenital-Female Stated complaint: ?Kidney stones Time Seen by Provider: 10/30/22 03:50 Source: patient Mode of arrival: ambulatory Limitations: no limitations History of Present Illness HPI Narrative: Patient with fibromyalgia with chronic back problems status post gastric sleeve surgery been having bilateral flank pain for last few days with history of same in the past patient was seen by PCP who did the urine started on Macrobid no fever no nausea no vomiting pain get worse on movements no abdominal pain does have pain when she urinates but no frequency or hematuria Related Data Home Medications Medication Instructions Recorded Confirmed albuterol sulfate 90 mcg/actuation 2 puff inhalation Q4-6H PRN 07/11/20 09/16/22 aerosol inhaler Wheezing atorvastatin 20 mg tablet 20 mg PO DAILY 07/11/20 09/16/22 betamethasone dipropionate 0.05 % 1 applic topical DAILY PRN Rash 07/11/20 09/16/22 topical cream buspirone 10 mg tablet 5 mg PO BID 07/11/20 09/16/22 xzuhbjkbwx-qlhiipnmzaytr-lbcgtiit 1 cap PO Q4H PRN Migraine Headache 07/11/20 09/16/22 50 mg-325 mg-40 mg capsule citalopram 20 mg tablet 20 mg PO DAILY 07/11/20 09/16/22 hydroxyzine HCl 50 mg tablet 50 mg PO BID 07/11/20 09/16/22 metronidazole 0.75 % topical cream 1 applic topical BID 07/11/20 09/16/22 sumatriptan succinate 100 mg 100 mg PO Q2-4H PRN Migraine 07/11/20 09/16/22 tablet (Imitrex) Headache topiramate 50 mg tablet 50 mg PO BID 07/11/20 09/16/22 gabapentin 300 mg capsule 300 mg PO BEDTIME 08/27/21 09/16/22 oxybutynin chloride 5 mg tablet 5 mg PO DAILY 08/27/21 09/16/22 bupropion HCl 75 mg tablet 1 tab PO DAILY 01/06/22 09/16/22 Previous Rx's Medication Instructions Recorded cholecalciferol (vitamin D3) 25 25 mcg PO DAILY #90 caps 07/02/22 mcg (1,000 unit) capsule docusate sodium 100 mg capsule 100 mg PO BID #60 caps 07/13/22 inulin 2 gram chewable tablet 2 g PO DAILY #90 tabs 07/13/22 (Fiber Gummies) methylprednisolone 4 mg tablets in See Rx Instructions PO PER PKG DIR 08/31/22 a dose pack (Medrol (Ray)) #21 ea tizanidine 4 mg tablet 4 mg PO BID PRN for muscle spasm 08/31/22 30 days #60 tabs cyclobenzaprine 10 mg tablet 10 mg PO Q8H #20 tabs 10/30/22 tramadol 50 mg tablet 50 mg PO Q6H PRN pain #20 tabs 10/30/22 Allergies Allergy/AdvReac Type Severity Reaction Status Date / Time Penicillins Allergy Severe Anaphylaxis Verified 10/30/22 02:57 aspirin Allergy Intermediate Rash Verified 10/30/22 02:57 seafood Allergy Intermediate Rash Verified 10/30/22 02:57 Review of Systems Review of Systems: Yes all other systems are reviewed and are negative PMFSH Past Medical History Medical History Asthma BMI 34.0-34.9,adult BMI 39.0-39.9,adult COVID-19 vaccine series completed DJD (degenerative joint disease) GERD (gastroesophageal reflux disease) Hyperlipidemia Insomnia Migraine Morbid obesity Non-insulin dependent type 2 diabetes mellitus Obesity Ovarian low malignant potential tumor Pannus, abdominal Seizures Sleep apnea with use of continuous positive airway pressure (CPAP) Stress incontinence Umbilical hernia Well woman exam Surgical History History of bilateral breast reduction surgery History of hysterectomy Hx of tubal ligation S/P laparoscopic sleeve gastrectomy Family History Family History Father History of prostate cancer Maternal Aunt History of breast cancer Mother Hypertension Hyperlipidemia Brother Thyroid condition Hypertension Brother No problems noted. Son No problems noted. Daughter No problems noted. Social History Social History Are you a primary healthcare recruiter to a significant other at home: No Do you presently have visiting nurse or other home services: No Alcohol intake: never Patient Tobacco Use Status: Never used Tobacco Advance Directives: No service: No Physical Exam Vital Signs: Vital Signs: Last Vital Signs Temp 97.4 F 02/10/23 02:51 Pulse 62 10/30/22 03:14 Resp 18 10/30/22 03:14 BP 137/84 10/30/22 03:14 Pulse Ox 99 10/30/22 03:14 O2 Del Method 10/30/22 03:14 BMI result Body Mass Index 28.7 Appearance: Alert. Oriented X3. No acute distress. Eyes: PERRLA, No Nystagmus ENT: Pharynx normal. Oral Mucosa moist Neck: Normal inspection. Neck supple. CVS: Normal heart rate and rhythm. Pulses normal. Respiratory: No respiratory distress. Equal air entry bilateral, no wheezing/rales/rhonchi Abdomen: Soft and nontender. Bowel sounds are present, no mass palpable, no CVA tenderness back; diffuse lumbar and paralumbar,, paraspinal tenderness no deformity Skin: Skin warm and dry. Normal skin color. Normal skin turgor. Extremities: No lower extremity edema. No calf tenderness Neuro: Oriented X 3. No motor deficit. No sensory deficit.No cerebellar signs , cranial nerves II-XII intact Medications Administered Discontinued Medications Generic Name Dose Route Start Last Admin Trade Name Freq PRN Reason Stop Dose Admin Cyclobenzaprine HCl 10 mg 10/30/22 04:16 10/30/22 04:25 Cyclobenzaprine Hcl 10 Mg Tablet PO 10/30/22 04:17 10 mg ONCE ONE Administration Dexamethasone 10 mg 10/30/22 04:16 10/30/22 04:25 Dexamethasone 2 Mg Tablet PO 10/30/22 04:17 10 mg ONCE ONE Administration Oxycodone HCl 10 mg 10/30/22 04:16 10/30/22 04:25 Oxycodone Hcl Immed Release 5 Mg Tablet PO 10/30/22 04:17 10 mg ONCE ONE Administration Medical Decision Making Medical Decision Making [facility] Narrative: Patient with diffuse lumbar pain urine negative for hematuria or UTI labs are stable will give her pain medication oxycodone, Flexeril Lab Data [facility] Lab Attestation statement: I reviewed the patient's lab results. 10/30/22 03:17 10/30/22 03:17 Labs: Lab Results 10/30/22 10/30/22 10/30/22 Range/Units 03:17 03:17 03:17 WBC 5.8 (4.8-10.8) X10*3/uL RBC 4.56 (4.20-5.50) X10*6/uL Hgb 13.3 (12.0-16.0) g/dl Hct 40.0 (37.0-47.0) % MCV 87.7 (80.0-98.0) fL MCH 29.2 (27.0-33.0) pg MCHC 33.3 (31.0-35.0) g/dl RDW 12.4 (11.0-16.0) % Plt Count 293 (160-400) X10*3/uL MPV 9.4 (9.4-12.3) fL Immature Gran % (Auto) 0.2 (0.0-0.4) % Neut % (Auto) 35.8 L (45-73) % Lymph % (Auto) 51.0 H (20-40) % [place] % (Auto) 9.0 (2-11) % Eos % (Auto) 3.3 (0-4) % Baso % (Auto) 0.7 (0-2) % Lymph # (Auto) 2.9 (1.2-4.9) X10*3/uL [place] # (Auto) 0.5 (0.1-1.2) X10*3/uL Eos # (Auto) 0.2 (0.0-0.4) X10*3/uL Baso # (Auto) 0.0 (0.0-0.2) X10*3/uL Abs Immat Gran (auto) 0.01 (0.00-0.03) X10*3/uL Absolute Neuts (auto) 2.1 (2.0-8.3) x10*3/uL Absolute Nucleated RBC 0.000 (0.0-0.012) X10*3/uL Nucleated RBC % (auto) 0.0 (0.0-0.2) /100WBC Sodium 143 (135-145) mmol/L Potassium 4.1 (3.3-5.1) mmol/L Chloride 105 (96-108) mmol/L Carbon Dioxide 25 (22-29) mmol/L Anion Gap 17 (12-20) BUN 15 (9-16) mg/dL Creatinine 1.01 (0.5-1.4) mg/dL Estim Creat Clear Calc 69.6 Estimated GFR > 60 Random Glucose 99 (60-115) mg/dL Calcium 9.7 (8.4-10.2) mg/dL Urine Color Yellow Urine Appearance Clear Urine pH 7.0 (5.0-9.0) Ur Specific [place] <= 1.005 (1.005-1.025) Urine Protein Negative (Neg-Trace) mg/dL Urine Glucose (UA) Negative (Negative) mg/dL Urine Ketones Negative (Negative) mg/dL Urine Blood Trace H (Negative) Urine Nitrite Negative (Negative) Ur Leukocyte Esterase Trace H (Negative) Urine RBC 0-2 (0-2) /HPF Urine WBC 0-5 (0-5) /HPF Ur Squamous Epith Cells 0-2 (0-2) /HPF Urine Bacteria None Seen (None Seen) Hyaline Casts 0-2 (0-2) /LPF Discharge Plan Discharge Clinical Impression: Back pain Patient Disposition: Home, Self-Care Instructions: Acute Low Back Pain (ED) Additional Instructions: Take pain medication and muscle relaxants as prescribed At this time there is no signs of urinary tract infection Follow with PCP [place] [facility] para el dolor y relajantes musculares seg?n lo prescrito En dar[place] momento no hay signos de infecci?n del tracto urinario Seguir con PCP Prescriptions: New cyclobenzaprine 10 mg tablet 10 mg PO Q8H Qty: 20 0RF tramadol 50 mg tablet 50 mg PO Q6H PRN (Reason: pain) Qty: 20 0RF No Action cholecalciferol (vitamin D3) 25 mcg (1,000 unit) capsule 25 mcg PO DAILY Qty: 90 3RF bupropion HCl 75 mg tablet 1 tab PO DAILY topiramate 50 mg tablet 50 mg PO BID atorvastatin 20 mg tablet 20 mg PO DAILY citalopram 20 mg tablet 20 mg PO DAILY sumatriptan succinate [Imitrex] 100 mg tablet 100 mg PO Q2-4H PRN (Reason: Migraine Headache) Rx Instructions: do not exceed 2 doses per 24 hrs chkjnigowj-hjgpnbyyupezk-femx 50-325-40 mg capsule 1 cap PO Q4H PRN (Reason: Migraine Headache) buspirone 10 mg tablet 5 mg PO BID albuterol sulfate 90 mcg/actuation HFA aerosol inhaler 2 puff inhalation Q4-6H PRN (Reason: Wheezing) metronidazole 0.75 % cream 1 applic topical BID hydroxyzine HCl 50 mg tablet 50 mg PO BID betamethasone dipropionate 0.05 % cream 1 applic topical DAILY PRN (Reason: Rash) docusate sodium 100 mg capsule 100 mg PO BID Qty: 60 3RF Fiber Gummies 2 gram tablet,chewable 2 g PO DAILY Qty: 90 3RF oxybutynin chloride 5 mg tablet 5 mg PO DAILY gabapentin 300 mg capsule 300 mg PO BEDTIME methylprednisolone [Medrol (Ray)] 4 mg tablets,dose pack See Rx Instructions PO PER PKG DIR Qty: 21 0RF Rx Instructions: PO PER PKG DIR tizanidine 4 mg tablet 4 mg PO BID PRN (Reason: for muscle spasm) 30 Days Qty: 60 1RF Interventions: ED Discharge Assessment Last Done: 10/30/22 04:54 Discharge Date/Time: 10/30/22 04:54 Print Language: Swedish
[2022-10-30] MEDS: oxyCODONE HCl Immed Release 5 MG TABLET 10 MG PO (04:25)
[2022-10-30] MEDS: dexAMETHasone 2 MG TABLET 10 MG PO (04:25)
[2022-10-30] MEDS: Cyclobenzaprine HCl 10 MG TABLET PO (04:25)
== END 2022-10-30 04:54 | disposition home or self-care (01) ==
PROVIDERS: Emergency Provider Internal Medicine; PCP Internal Medicine
DX: M54.50 Low back pain, unspecified (principal); Z79.899 Other long term (current) drug therapy
CPT/HCPCS: 36415; 80048; 81001; 85025; 99283; J8540

== ENCOUNTER 2022-12-22 15:15 | Outpatient (REF) | payer MEDICAID, SELFPAY ==
--- NOTE | ~2022-12-22 | MM_ITS ---
EXAMINATION: MM SCREENING DIGITAL BREAST TOMOSYNTHESIS, BILATERAL CLINICAL INFORMATION: Screening. Asymptomatic. Remote reduction mammoplasty, 2009. COMPARISON: Mammography: 09/23/2021, outside mammography 07/08/2019 ([facility]); MR breasts 10/14/2022. TECHNIQUE: Digital breast tomosynthesis is performed in both the craniocaudal and mediolateral oblique views along with computer-aided detection (CAD). Synthesized 2D images are generated from the tomosynthesis. FINDINGS: The breasts are almost entirely fatty (ACR BI-RADS breast composition Category a). There are no significant masses, abnormal calcifications, or other abnormalities. Background stromal markings are similar to prior studies. No developing density or architectural abnormality. There are scattered benign bilateral round and rim and dermal calcifications predominantly anterior breasts consistent with the reduction mammoplasty. The axilla are unremarkable. No significant changes. MM/MM tomosynthesis screening BI IMPRESSION: No mammographic evidence of malignancy. ASSESSMENT: BI-RADS 2: Benign RECOMMENDATION: Routine annual mammography screening. This patient's information was entered into a reminder system with a target due date for their next mammogram.
== END 2022-12-22 15:16 | disposition home or self-care (01) ==
LOC: HO.MAMMO 15:15
PROVIDERS: PCP Internal Medicine; Visit Provider Internal Medicine
DX: Z12.31 Encounter for screening mammogram for malignant neoplasm of breast (principal)
CPT/HCPCS: 77063; 77067

== ENCOUNTER 2023-01-05 08:38 | Outpatient (REF) | payer MEDICAID, SELFPAY ==
[2023-01-05 10:33] LABS: MANUAL DIFF FLAG NO
[2023-01-05 13:04] LABS: Basophils Percent Auto 0.6 % (0-2); Eosinophils Absolute Auto 0.1 X10*3/uL (0.0-0.4); Eosinophils Percent Auto 1.7 % (0-4); Hematocrit 41.8 % (37.0-47.0); Hemoglobin 13.7 g/dl (12.0-16.0); Lymphocytes Percent Auto 42.7 % (20-40); Mean Corpuscular HGB Conc 32.8 g/dl (31.0-35.0); Mean Corpuscular Hemoglobin 29.7 pg (27.0-33.0); Mean Corpuscular Volume 90.7 fL (80.0-98.0); Mean Platelet Volume 10.1 fL (9.4-12.3); Monocytes Absolute Auto 0.4 X10*3/uL (0.1-1.2); Monocytes Percent Auto 8.4 % (2-11); Neutrophils Absolute Auto 2.2 x10*3/uL (2.0-8.3); Neutrophils Percent Auto 46.6 % (45-73); Platelet Count 303 X10*3/uL (160-400); Red Blood Count 4.61 X10*6/uL (4.20-5.50); Red Cell Distribution Width 13.2 % (11.0-16.0); White Blood Count 4.8 X10*3/uL (4.8-10.8)
[2023-01-05 13:22] LABS: Estimated Average Glucose 114 mg/dL; Hemoglobin A1c % 5.6 %
[2023-01-05 13:58] LABS: Alanine Aminotransferase 14 U/L (0-31); Albumin Level 4.6 g/dL (3.5-5.0); Alkaline Phosphatase 77 U/L (39-117); Anion Gap 12 (12-20); Aspartate Amino Transferase 18 U/L (5-31); Bilirubin Total 0.7 mg/dL (0.0-1.0); Blood Urea Nitrogen 10 mg/dL (9-16); C Reactive Protein 0.13 mg/dL (< or = 0.50); Calcium 9.9 mg/dL (8.4-10.2); Carbon Dioxide 31 mmol/L (22-29); Chloride 105 mmol/L (96-108); Cholesterol 267 mg/dL; Estimated Glomerular Filt Rate > 60; Glucose Random 84 mg/dL (60-115); HDL Cholesterol 65 mg/dL; Iron 110 mcg/dL (30-160); LDL Cholesterol Calculated 185 mg/dl; Percent Iron Saturation 40 % (15-50); Potassium 4.3 mmol/L (3.3-5.1); Sodium 144 mmol/L (135-145); Total Iron Binding Capacity 278 mcg/dL (228-428); Total Protein 7.3 g/dL (6.5-8.0); Triglycerides 86 mg/dL; Unsaturated Iron Binding 168 ug/dL
[2023-01-05 14:12] LABS: Ferritin 225 ng/mL (10-250); Folate 16.7 ng/mL (> or = 4.0); Insulin 10 uU/mL (2-29); TSH reflex Free T4 0.95 uIU/mL (0.32-4.0); Vitamin B12 530 pg/mL (200-900)
[2023-01-06 13:24] LABS: PTHI 51 pg/mL (16-77)
[2023-01-09 01:23] LABS: Zinc 92 mcg/dL (60-130)
[2023-01-11 11:14] LABS: Vitamin A 51 mcg/dL (38-98)
[2023-01-11 14:29] LABS: Vitamin B1 12 nmol/L (8-30)
== END 2023-01-05 08:39 | disposition home or self-care (01) ==
LOC: HO.LAB 08:38
PROVIDERS: PCP Internal Medicine; Visit Provider Physician Assistant Surgical
DX: E66.3 Overweight (principal); Z98.84 Bariatric surgery status
CPT/HCPCS: 36415; 80053; 80061; 82306; 82607; 82728; 82746; 83036; 83525; 83540; 83970; 84425; 84443; 84590; 84630; 85025; 86140; 99212

== ENCOUNTER → 2023-01-14 08:10 | Outpatient (BNVA) | payer MEDICAID, SELFPAY | PROVIDERS: PCP Internal Medicine; Visit Provider Surgery | DX: Z80.3 Family history of malignant neoplasm of breast (principal); Z98.51 Tubal ligation status; Z90.710 Acquired absence of both cervix and uterus | CPT/HCPCS: 99212 ==

== ENCOUNTER 2023-04-06 10:30 | Outpatient (AMB) | payer MEDICAID, SELFPAY ==
--- NOTE | 2023-04-06 10:28 | A.OFFVIS_ITS ---
Intake VS Expanded 04/06/23 10:45 Height 5 ft 3 in Weight 166 lb BMI 29.4 Intake Visit Reasons: VIDEO PO LSG 01/06/22 Program Development Specialist Required: Yes Allergies Penicillins Allergy (Severe, Verified 01/14/23 08:56) Anaphylaxis aspirin Allergy (Intermediate, Verified 01/14/23 08:56) Rash seafood Allergy (Intermediate, Verified 01/14/23 08:56) Rash Medication List - Last Reconciled 04/06/23 by JO ANN Syed albuterol sulfate 90 mcg/actuation 2 puffs inhalation Q4-6H PRN atorvastatin 20 mg PO DAILY betamethasone dipropionate 0.05% 1 appl topical DAILY PRN bupropion HCl 1 tab PO DAILY buspirone 5 mg PO BID pnqxhwxczt-ucgsszsqgiysm-nvsw 50-325-40 mg 1 cap PO Q4H PRN cholecalciferol (vitamin D3) 25 mcg PO DAILY citalopram 20 mg PO DAILY cyclobenzaprine 10 mg PO Q8H gabapentin 300 mg PO BEDTIME hydroxyzine HCl 50 mg PO BID methylprednisolone (Medrol (Ray)) PO PER PKG DIR metronidazole 0.75% 1 appl topical BID oxybutynin chloride 5 mg PO DAILY sennosides (senna) 8.6 mg PO DAILY sumatriptan succinate (Imitrex) 100 mg PO Q2-4H PRN tizanidine 4 mg PO BID PRN 30 days topiramate 50 mg PO BID tramadol 50 mg PO Q6H PRN HPI HPI Comments History of Present Illness Details This?is a?42?yo female who is s/p LSG 01/06/2022. Presents for 15 month post op visit. Weight at last visit on 01/05/2023 was 162.2 pounds with a BMI of 28.7, weight today is 166 pounds, representing a 3.8 pound weight gain with a BMI today of 29.4.? Having some right sided abdominal pain, has been going on for about 2 months. Pain starts about 5 minutes after eating, waxes and wanes in intensity, lasts about 1 hour. Eating red meats makes it worse. Cold liquids and foods give discomfort. She occasionally gets pain/reflux if she is constipated but notes this pain is different. Reports she continues to eat and drink slowly. Nonsmoker, no EtOH, no NSAIDs. Present meal plan includes: ~70g protein goal Shake for breakfast- Celebrate 2 scoops in almond milk 3x/week, or eggs or toast with PB Lunch- 2oz protein, 2oz veg Snack- protein bar Dinner- 2-3oz protein, 2oz veg taking Celebrate MVI All meals last 20 - 30 minutes and does not drink and eat at the same time. Exercise routine includes: walking on treadmill and bike, 2x/week, also doing yoga PFSH Medical History Asthma BMI 34.0-34.9,adult BMI 39.0-39.9,adult COVID-19 vaccine series completed DJD (degenerative joint disease) GERD (gastroesophageal reflux disease) Hyperlipidemia Insomnia Migraine Morbid obesity Non-insulin dependent type 2 diabetes mellitus Obesity Ovarian low malignant potential tumor Pannus, abdominal Seizures Sleep apnea with use of continuous positive airway pressure (CPAP) Stress incontinence Umbilical hernia Well woman exam Surgical History History of bilateral breast reduction surgery History of hysterectomy Hx of tubal ligation S/P laparoscopic sleeve gastrectomy Family History Father History of prostate cancer Maternal Aunt History of breast cancer Mother Hypertension Hyperlipidemia Brother Thyroid condition Hypertension Brother No problems noted. Son No problems noted. Daughter No problems noted. Social History Are you a primary healthcare market consultant to a significant other at home: No Do you presently have visiting nurse or other home services: No Alcohol intake: never Patient Tobacco Use Status: Never used Tobacco service: No Female Reproductive History Menstrual Age of Menarche: 11 Assessment & Plan Assessment & Plan (1) RUQ abdominal pain: Code(s): R10.11 - Right upper quadrant pain (2) Overweight: Code(s): E66.3 - Overweight (3) S/P laparoscopic sleeve gastrectomy: Comment: 01/06/22 Code(s): Z98.84 - Bariatric surgery status Plan Pt will keep a food journal to record episodes of pain, how long they last, and what she ate before. Will also order RUQ US to eval gallbladder. Suggested changing meal plan to 2 shakes, 1 bar, and one small meal per day for now. Pt reports she continues to eat and drink at appropriate pace. RTC 6 weeks with food diary results; pt will call office if pain worsens prior to next visit. Patient is overweight and is not considered stable at this time. I spent a total of 30 minutes reviewing/updating records, examining the patient and counseling the patient on weight management as detailed above. Orders: Orders US abdomen limited Today R10.11 - Right upper quadrant pain Telehealth Telehealth Location of provider rendering services: practice address Location of patient: address on file Patient Identification confirmed using: Name, : Yes Telehealth method: video Patient verbally consented to treatment: Yes Patient verbally consented to billing insurance company: Yes Patient informed of any privacy concerns related to visit: Yes Coding Level of Care Code Tele Est Pt Level 4 (17901) Diagnoses RUQ abdominal pain R10.11 Overweight E66.3 S/P laparoscopic sleeve gastrectomy Z98.84
[2023-04-06 10:45] VITALS: BMI 29.4
== END 2023-04-06 11:05 | disposition home or self-care (01) ==
LOC: HO.HBS 11:04
PROVIDERS: PCP Internal Medicine; Visit Provider Physician Assistant Surgical
DX: R10.11 Right upper quadrant pain (principal); E66.3 Overweight; Z98.84 Bariatric surgery status
CPT/HCPCS: 99214

== ENCOUNTER 2023-04-16 09:18 | Outpatient (REF) | payer MEDICAID, SELFPAY ==
--- NOTE | ~2023-04-16 | US_ITS ---
EXAMINATION: US ABDOMEN LIMITED CLINICAL INFORMATION: Right upper quadrant pain. COMPARISON: Ultrasound abdomen complete 10/16/2021. CT abdomen and pelvis 07/26/2020. TECHNIQUE: Real-time imaging of the right upper quadrant abdominal viscera. Limited visualization due to bowel gas and body habitus. FINDINGS: PANCREAS: Limited visualization of pancreatic tail and head. Imaged portion of pancreatic body is unremarkable. LIVER: Diffuse increase in echogenicity of the liver is characteristic of primary hepatocellular disease, possibly due to hepatic steatosis and further limits visualization. GALLBLADDER: Multiple small mobile gallstones. Borderline gallbladder wall thickening of 3.3 mm. COMMON BILE DUCT: Normal in caliber measuring 0.3 cm in diameter. RIGHT KIDNEY: No hydronephrosis. No renal calculi. Limited visualization. Renal cortical thickness is normal. The kidney measures 10.1 cm in maximum dimension. FREE FLUID: None. US/US abdomen limited IMPRESSION: 1. Diffuse increase in echogenicity of the liver is characteristic of primary hepatocellular disease, possibly due to hepatic steatosis and further limits visualization. 2. Multiple small mobile gallstones. Borderline gallbladder wall thickening of 3.3 mm.
== END 2023-04-16 09:19 | disposition home or self-care (01) ==
LOC: HO.US 09:18
PROVIDERS: PCP Internal Medicine; Visit Provider Physician Assistant Surgical
DX: R10.11 Right upper quadrant pain (principal)
CPT/HCPCS: 76705

== ENCOUNTER 2023-05-05 08:37 | Outpatient (REF) | payer MEDICAID, SELFPAY ==
--- NOTE | ~2023-05-05 | XR_ITS ---
EXAMINATION: XR SHOULDER, RIGHT CLINICAL INFORMATION: Right shoulder pain for 2 weeks. COMPARISON: None available. TECHNIQUE: AP external rotation, Grashey, scapular Y, and axillary views of the right shoulder. FINDINGS: The bones and soft tissues are normal. No fracture. Glenohumeral and acromioclavicular alignment is anatomic with normal joint space. No abnormal soft tissue calcifications. XR/XR shoulder RT min 2V IMPRESSION: Unremarkable right shoulder.
== END 2023-05-05 08:38 | disposition home or self-care (01) ==
LOC: HO.HHCX 08:37
PROVIDERS: Visit Provider Internal Medicine
DX: M25.511 Pain in right shoulder (principal)
CPT/HCPCS: 73030

== ENCOUNTER 2023-06-01 10:30 | Outpatient (AMB) | payer MEDICAID, SELFPAY ==
--- NOTE | 2023-06-01 10:48 | MHC.OFFVISWM ---
Intake VS Expanded 06/01/23 10:58 Height 5 ft 3 in Weight 165 lb BMI 29.2 Intake Visit Reasons: VIDEO PO LSG 01/06/22 Allergies Penicillins Allergy (Severe, Verified 01/14/23 08:56) Anaphylaxis aspirin Allergy (Intermediate, Verified 01/14/23 08:56) Rash seafood Allergy (Intermediate, Verified 01/14/23 08:56) Rash Medication List - Last Reconciled 06/01/23 by JO ANN Syed albuterol sulfate 90 mcg/actuation 2 puffs inhalation Q4-6H PRN atorvastatin 20 mg PO DAILY betamethasone dipropionate 0.05% 1 appl topical DAILY PRN bupropion HCl 1 tab PO DAILY buspirone 5 mg PO BID lhihgitkym-umawyzknkuarw-lfew 50-325-40 mg 1 cap PO Q4H PRN cholecalciferol (vitamin D3) 25 mcg PO DAILY citalopram 20 mg PO DAILY cyclobenzaprine 10 mg PO Q8H gabapentin 300 mg PO BEDTIME hydroxyzine HCl 50 mg PO BID methylprednisolone (Medrol (Ray)) PO PER PKG DIR metronidazole 0.75% 1 appl topical BID oxybutynin chloride 5 mg PO DAILY sennosides (senna) 8.6 mg PO DAILY sumatriptan succinate (Imitrex) 100 mg PO Q2-4H PRN tizanidine 4 mg PO BID PRN 30 days topiramate 50 mg PO BID tramadol 50 mg PO Q6H PRN HPI HPI Comments History of Present Illness Details This?is a?42?yo female who is s/p LSG 01/06/2022. Presents for 17 month post op visit. Weight at last visit on 04/06/2023 was 166 pounds with a BMI of 29.4, weight today is 165 pounds, representing a 1 pound weight loss with a BMI today of 29.2.? Continues to have some episodes of abdominal pain, no improvement since last visit. Occasional nausea when the pain happens, no vomiting. No diarrhea but does have some constipation, taking mag 3x/week. Present meal plan includes: 3 protein bars- these do not cause as much pain; shakes were giving her some difficulty and she thinks it may have been because they are milk based meal of protein/veg- tries to avoid dressing on salad, will cook chicken without oil All meals last 20 - 30 minutes and does not drink and eat at the same time. Exercise routine includes: walking on treadmill and bike, 2x/week, also doing yoga PFSH Medical History Asthma BMI 34.0-34.9,adult BMI 39.0-39.9,adult COVID-19 vaccine series completed DJD (degenerative joint disease) GERD (gastroesophageal reflux disease) Hyperlipidemia Insomnia Migraine Morbid obesity Non-insulin dependent type 2 diabetes mellitus Obesity Ovarian low malignant potential tumor Pannus, abdominal Seizures Sleep apnea with use of continuous positive airway pressure (CPAP) Stress incontinence Umbilical hernia Well woman exam Surgical History History of bilateral breast reduction surgery History of hysterectomy Hx of tubal ligation S/P laparoscopic sleeve gastrectomy Family History Father History of prostate cancer Maternal Aunt History of breast cancer Mother Hypertension Hyperlipidemia Brother Thyroid condition Hypertension Brother No problems noted. Son No problems noted. Daughter No problems noted. Social History Are you a primary eye care professional to a significant other at home: No Do you presently have visiting nurse or other home services: No Alcohol intake: never Patient Tobacco Use Status: Never used Tobacco service: No Female Reproductive History Menstrual Age of Menarche: 11 Results Reviewed Results Reviewed: Patient: Regina Willson MR#: [id number] : 1980 Acct:[id number] Age/Sex: 42 / F ADM Date: 04/16/23 Loc: [facility] Attending Dr: Teodora CHERRY Ordering Physician: Teodora Cervantes Date of Service: 04/16/23 Procedure(s): US abdomen limited Accession Number(s): [id number] cc: Teodora Cervantes~ EXAMINATION: US ABDOMEN LIMITED CLINICAL INFORMATION: Right upper quadrant pain. COMPARISON: Ultrasound abdomen complete 10/16/2021. CT abdomen and pelvis 07/26/2020. TECHNIQUE: Real-time imaging of the right upper quadrant abdominal viscera. Limited visualization due to bowel gas and body habitus. FINDINGS: PANCREAS: Limited visualization of pancreatic tail and head. Imaged portion of pancreatic body is unremarkable. LIVER: Diffuse increase in echogenicity of the liver is characteristic of primary hepatocellular disease, possibly due to hepatic steatosis and further limits visualization. GALLBLADDER: Multiple small mobile gallstones. Borderline gallbladder wall thickening of 3.3 mm. COMMON BILE DUCT: Normal in caliber measuring 0.3 cm in diameter. RIGHT KIDNEY: No hydronephrosis. No renal calculi. Limited visualization. Renal cortical thickness is normal. The kidney measures 10.1 cm in maximum dimension. FREE FLUID: None. US/US abdomen limited IMPRESSION: 1. Diffuse increase in echogenicity of the liver is characteristic of primary hepatocellular disease, possibly due to hepatic steatosis and further limits visualization. 2. Multiple small mobile gallstones. Borderline gallbladder wall thickening of 3.3 mm. Assessment & Plan Assessment & Plan (1) Overweight: Code(s): E66.3 - Overweight (2) S/P laparoscopic sleeve gastrectomy: Comment: 01/06/22 Code(s): Z98.84 - Bariatric surgery status (3) Abdominal pain: Code(s): R10.9 - Unspecified abdominal pain (4) Gallstones: Code(s): K80.20 - Calculus of gallbladder without cholecystitis without obstruction Plan RUQ US reviewed. Pt has multiple stones and borderline GB wall thickening. I reviewed her liver US from preop as well and this did not show any signs of stones. Will arrange an appt with Dr. Dave to discuss possible cholecystectomy to [facility] pt was agreeable as she is eager to have this pain relieved. In the meantime advised keeping a low fat diet. Patient is overweight and is not considered stable at this time. I spent a total of 30 minutes reviewing/updating records, examining the patient and counseling the patient on weight management as detailed above. Telehealth Telehealth Location of provider rendering services: practice address Location of patient: address on file Patient Identification confirmed using: Name, : Yes Telehealth method: video Patient verbally consented to treatment: Yes Patient verbally consented to billing insurance company: Yes Patient informed of any privacy concerns related to visit: Yes Coding Level of Care Code Tele Est Pt Level 4 (14836) Diagnoses Overweight E66.3 S/P laparoscopic sleeve gastrectomy Z98.84 Abdominal pain R10.9 Gallstones K80.20
[2023-06-01 10:58] VITALS: BMI 29.2
== END 2023-06-01 11:08 | disposition home or self-care (01) ==
LOC: HO.HBS 11:05
PROVIDERS: PCP Internal Medicine; Visit Provider Physician Assistant Surgical
DX: E66.3 Overweight (principal); Z98.84 Bariatric surgery status; R10.9 Unspecified abdominal pain; K80.20 Calculus of gallbladder without cholecystitis without obstruction
CPT/HCPCS: 99214

== ENCOUNTER → 2023-06-01 10:30 | Outpatient (BNVA) | payer MEDICAID, SELFPAY | PROVIDERS: PCP Internal Medicine; Visit Provider Physician Assistant Surgical ==

== ENCOUNTER 2023-06-11 09:10 | Outpatient (AMB) | payer MEDICAID, SELFPAY ==
--- NOTE | 2023-06-11 09:13 | A.OFFVIS_ITS ---
Intake Intake Visit Reasons: (OV) Possible Cholecystectomy (Referred by Teodora) Allergies Penicillins Allergy (Severe, Verified 01/14/23 08:56) Anaphylaxis aspirin Allergy (Intermediate, Verified 01/14/23 08:56) Rash seafood Allergy (Intermediate, Verified 01/14/23 08:56) Rash [facility] Medical History Asthma BMI 34.0-34.9,adult BMI 39.0-39.9,adult COVID-19 vaccine series completed DJD (degenerative joint disease) GERD (gastroesophageal reflux disease) Hyperlipidemia Insomnia Migraine Morbid obesity Non-insulin dependent type 2 diabetes mellitus Obesity Ovarian low malignant potential tumor Pannus, abdominal Seizures Sleep apnea with use of continuous positive airway pressure (CPAP) Stress incontinence Umbilical hernia Well woman exam Surgical History History of bilateral breast reduction surgery History of hysterectomy Hx of tubal ligation S/P laparoscopic sleeve gastrectomy Family History Father History of prostate cancer Maternal Aunt History of breast cancer Mother Hypertension Hyperlipidemia Brother Thyroid condition Hypertension Brother No problems noted. Son No problems noted. Daughter No problems noted. Social History Are you a primary laboratory animal caretaker to a significant other at home: No Do you presently have visiting nurse or other home services: No Alcohol intake: never Patient Tobacco Use Status: Never used Tobacco service: No Female Reproductive History Menstrual Age of Menarche: 11 Coding
--- NOTE | 2023-06-11 09:14 | A.OFFVIS_ITS ---
Intake Vital Signs 06/11/23 09:49 Height 5 ft 3 in Weight 169 lb 5.04 oz BMI 30.0 BP 114/66 Blood Pressure Location Rt brachial Position Sitting Pulse 58 Pulse Source Pulse Oximeter Temp 97.3 F Temp Source Tympanic Pulse Oximetry (%) 97 Oxygen Delivery Method Room Air Intake Visit Reasons: (OV) Possible Cholecystectomy (Referred by Teodora) Boat Tender Required: Yes Boat Tender Name: Diya Information Interpreted: clinical only Land Leases And Rentals Manager: Land Leases And Rentals Manager Present Allergies Penicillins Allergy (Severe, Verified 06/11/23 09:50) Anaphylaxis aspirin Allergy (Intermediate, Verified 06/11/23 09:50) Rash seafood Allergy (Intermediate, Verified 06/11/23 09:50) Rash Medication List - Last Reconciled 06/11/23 by Sascha Dave MD albuterol sulfate 90 mcg/actuation 2 puffs inhalation Q4-6H PRN atorvastatin 20 mg PO DAILY betamethasone dipropionate 0.05% 1 appl topical DAILY PRN bupropion HCl 1 tab PO DAILY buspirone 5 mg PO BID [id number]-[id number] 50-325-40 mg 1 cap PO Q4H PRN cholecalciferol (vitamin D3) 25 mcg PO DAILY citalopram 20 mg PO DAILY cyclobenzaprine 10 mg PO Q8H gabapentin 300 mg PO BEDTIME hydroxyzine HCl 50 mg PO BID oxybutynin chloride 5 mg PO DAILY sennosides (senna) 8.6 mg PO DAILY sumatriptan succinate (Imitrex) 100 mg PO Q2-4H PRN tizanidine 4 mg PO BID PRN 30 days topiramate 50 mg PO BID tramadol 50 mg PO Q6H PRN HPI HPI Comments History of Present Illness Details The patient is a 43-year-old woman who is seen with the help of interpretive services since she speaks primarily Qatari. Patient underwent successful laparoscopic sleeve gastrectomy 01/06/22 with weight loss down to 165 lb. She is up 4 lb since her last visit and is seen because of pain that she reports in her back/flank that is radiating down her right leg to her hip. While the patient denies any dysphagia, she reports that most mornings, while she is brushing her teeth she vomits green, bilious, nonbloody material. She notes a constant right upper quadrant/right flank aching and reports this pain is sometimes worse after eating meat or fish. Pain is fairly immediate and definitely within 15 minutes. Patient also reports constipation and is taking milk of magnesia 3 times a week. Her current meal plan include skipping breakfast, having fruit salad or green salad at lunch with no protein, a protein with potatoes or other vegetables at 3-4 p.m. and a protein shake at night. [facility] Medical History COVID-19 vaccine series completed BMI 34.0-34.9,adult BMI 39.0-39.9,adult Insomnia Seizures DJD (degenerative joint disease) Stress incontinence GERD (gastroesophageal reflux disease) Hyperlipidemia Sleep apnea with use of continuous positive airway pressure (CPAP) Non-insulin dependent type 2 diabetes mellitus Obesity Well woman exam Ovarian low malignant potential tumor Umbilical hernia Migraine Asthma Morbid obesity Pannus, abdominal Surgical History S/P laparoscopic sleeve gastrectomy Hx of tubal ligation History of hysterectomy History of bilateral breast reduction surgery Family History Father History of prostate cancer Maternal Aunt History of breast cancer Mother Hypertension Hyperlipidemia Brother Thyroid condition Hypertension Brother No problems noted. Son No problems noted. Daughter No problems noted. Social History Are you a primary senior care provider to a significant other at home: No Do you presently have visiting nurse or other home services: No Alcohol intake: never Patient Tobacco Use Status: Never used Tobacco service: No Female Reproductive History Menstrual Age of Menarche: 11 Review of Systems Const All systems reviewed & are unremarkable except as noted in HPI and below Reports as per HPI Physical Exam Vital Signs: Last Vital Signs Temp 97.3 F 06/11/23 09:49 Pulse 58 06/11/23 09:49 BP 114/66 06/11/23 09:49 Pulse Ox 97 06/11/23 09:49 Oxygen Delivery Method Room Air 06/11/23 09:49 BMI result Body Mass Index 30.0 The patient is non-toxic & in good spirits NC/AT, PERRLA, EOMI Mood, affect & judgment all appear appropriate Sclera anicteric conjunctiva pink and moist Oropharynx is clear with no aphthous ulcers, Mallampati class 2, mucous membranes moist Neck is supple with no masses, adenopathy or bruits Heart is regular, normal S1-S2 no rubs or murmurs Lungs are clear and equal anteriorly with no audible wheezing, rubs or dullness to percussion Her abdominal incisions are all well healed with no evidence of any incisional hernia and there was no pain/tenderness at this time No CVA tenderness present Abdomen is overweight with no demonstrable hernias. No HSM, rebound, rigidity, guarding, masses or bruits are present. Rectal exam is deferred Skin has good turgor and is free of rashes Extremities free of cyanosis clubbing edema Results Reviewed Results Reviewed: I have ordered nonfasting labs to include CBCD, lipase & CMP today UGI (stat) ordered re: vomiting Preoperative right upper quadrant ultrasound/liver elastography dated 10/16/2021 showed no evidence of any gallstones Study from 04/16/2023 confirms cholelithiasis and NAFLD. CBD 0.3cm & borderline GB wall thickening Assessment & Plan Assessment & Plan (1) S/P laparoscopic sleeve gastrectomy: Comment: 01/06/22 Code(s): Z98.84 - Bariatric surgery status (2) Vomiting: Code(s): R11.10 - Vomiting, unspecified Qualifiers: Vomiting type: unspecified (3) Gallstones: Code(s): K80.20 - Calculus of gallbladder without cholecystitis without obstruction Plan Via candle pourer, I reviewed the incidence of gallstone, the patient's constipation, her fatty liver disease and weight gain as well as her symptoms. I explained that some of her symptoms may be related to intermittent gallbladder problems, but vomiting in the morning while brushing her teeth would not typically be secondary to gallstones. Given her prior sleeve, I will order a stat upper GI to assess sleeve morphology & see her back following that study. Patient notes intake of carbohydrates and in the setting of fatty liver, this may be contributing to her right flank pain that is constant, but it would not explain the pain radiating down her leg to her hip. Explained to her that this may be secondary to either hip or spinal issues and that we would see how she is doing after carb restricted diet between now and her follow-up visit. Regarding her constipation, it is recommended that she purchase fiber gummies and add to of these to her diet to see if that helps. I will see her after her upper GI and labs are done and she will contact me before then if she is clinically worsening. Orders: Orders FL upper GI series Today K80.20 - Calculus of gallbladder without cholecystitis without obstruction, R11.10 - Vomiting, unspecified, Z98.84 - Bariatric surgery status Comprehensive Met. Panel Today K80.20 - Calculus of gallbladder without cholecystitis without obstruction, R11.10 - Vomiting, unspecified, Z98.84 - Bariatric surgery status Complete Blood Count Auto Diff Today K80.20 - Calculus of gallbladder without cholecystitis without obstruction, R11.10 - Vomiting, unspecified, Z98.84 - Bariatric surgery status Lipase Today K80.20 - Calculus of gallbladder without cholecystitis without obstruction, R11.10 - Vomiting, unspecified, Z98.84 - Bariatric surgery status Coding Level of Care Code Est Pt Level 4 (78785) Diagnoses S/P laparoscopic sleeve gastrectomy Z98.84 Vomiting R11.10 Vomiting type: unspecified Gallstones K80.20
[2023-06-11 09:49] VITALS: BP 114/66; PULSE 58; TEMP 36.3; O2SAT 97
== END 2023-06-11 10:40 | disposition home or self-care (01) ==
PROVIDERS: PCP Internal Medicine; Visit Provider Surgery
DX: Z98.84 Bariatric surgery status (principal); R11.10 Vomiting, unspecified; K80.20 Calculus of gallbladder without cholecystitis without obstruction
CPT/HCPCS: 99214

== ENCOUNTER → 2023-06-11 09:10 | Outpatient (BNVA) | payer MEDICAID, SELFPAY | PROVIDERS: PCP Internal Medicine; Visit Provider Surgery | DX: K80.20 Calculus of gallbladder without cholecystitis without obstruction (principal); R11.10 Vomiting, unspecified; Z98.84 Bariatric surgery status | CPT/HCPCS: 99212 ==

== ENCOUNTER 2023-06-12 08:26 | Outpatient (REF) | payer MEDICAID, SELFPAY ==
[2023-06-12 09:07] LABS: MANUAL DIFF FLAG NO
[2023-06-12 09:23] LABS: Basophils Percent Auto 0.7 % (0-2); Eosinophils Absolute Auto 0.1 X10*3/uL (0.0-0.4); Eosinophils Percent Auto 1.6 % (0-4); Hematocrit 41.6 % (37.0-47.0); Hemoglobin 13.5 g/dl (12.0-16.0); Imm Gran Abs Auto 0.01 X10*3/uL (0.00-0.03); Imm Gran Pct Auto 0.2 % (0.0-0.4); Lymphocytes Absolute Auto 2.8 X10*3/uL (1.2-4.9); Lymphocytes Percent Auto 47.5 % (20-40); Mean Corpuscular HGB Conc 32.5 g/dl (31.0-35.0); Mean Corpuscular Hemoglobin 29.7 pg (27.0-33.0); Mean Corpuscular Volume 91.6 fL (80.0-98.0); Mean Platelet Volume 9.8 fL (9.4-12.3); Monocytes Absolute Auto 0.5 X10*3/uL (0.1-1.2); Neutrophils Absolute Auto 2.4 x10*3/uL (2.0-8.3); Platelet Count 291 X10*3/uL (160-400); Red Blood Count 4.54 X10*6/uL (4.20-5.50); Red Cell Distribution Width 13.2 % (11.0-16.0); White Blood Count 5.8 X10*3/uL (4.8-10.8)
[2023-06-12 09:55] LABS: Alanine Aminotransferase 10 U/L (0-31); Albumin Level 4.4 g/dL (3.5-5.0); Alkaline Phosphatase 71 U/L (39-117); Anion Gap 15 (12-20); Aspartate Amino Transferase 14 U/L (5-31); Bilirubin Total 0.5 mg/dL (0.0-1.0); Blood Urea Nitrogen 11 mg/dL (9-16); Calcium 10.2 mg/dL (8.4-10.2); Carbon Dioxide 27 mmol/L (22-29); Chloride 108 mmol/L (96-108); Estimated Glomerular Filt Rate > 60; Glucose Random 93 mg/dL (60-115); Lipase 30 U/L (8-78); Potassium 4.6 mmol/L (3.3-5.1); Sodium 145 mmol/L (135-145); Total Protein 7.4 g/dL (6.5-8.0)
== END 2023-06-12 08:27 | disposition home or self-care (01) ==
LOC: HO.LAB 08:26
PROVIDERS: PCP Internal Medicine; Visit Provider Surgery
DX: R11.10 Vomiting, unspecified (principal); K80.20 Calculus of gallbladder without cholecystitis without obstruction; Z98.84 Bariatric surgery status
CPT/HCPCS: 36415; 80053; 83690; 85025

== ENCOUNTER 2023-06-16 07:31 | Outpatient (REF) | payer MEDICAID, SELFPAY ==
--- NOTE | ~2023-06-16 | FL_ITS ---
EXAMINATION: XR GI SERIES CLINICAL INFORMATION: Previous gastric sleeve surgery. Presents with vomiting. COMPARISON: None available. TECHNIQUE: Routine upright and lying double-contrast upper GI exam was performed. FINDINGS: Following oral administration of thick barium and effervescent granules, there is normal propagation of bolus from the oral cavity through the pharynx, esophagus into stomach without any evidence of obstruction, narrowing or stricture. On placing patient supine and prone lying, the course, caliber and peristalsis of the stomach and duodenal bulb is normal. There is evidence of previous gastric sleeve surgery. There is a small sized sliding hiatal hernia with large gastroesophageal reflux. Mild mucosal irregularity of the distal esophagus is noted. FLUOROSCOPY TIME: 55 seconds. DOSE AREA PRODUCT: 2233 uGy-m2 (microgray-meter squared). FL/FL upper GI series IMPRESSION: Previous gastric sleeve surgery changes are noted. Mild irregularity distal esophagus. Small sliding hiatal hernia with large gastroesophageal reflux.
== END 2023-06-16 07:32 | disposition home or self-care (01) ==
LOC: HO.XRAY 07:31
PROVIDERS: PCP Internal Medicine; Visit Provider Surgery
DX: K80.20 Calculus of gallbladder without cholecystitis without obstruction (principal); R11.10 Vomiting, unspecified; Z98.84 Bariatric surgery status
CPT/HCPCS: 74240

== ENCOUNTER → 2023-06-16 07:33 | Outpatient (BNV) | payer MEDICAID, SELFPAY | PROVIDERS: PCP Internal Medicine; Visit Provider Radiology Diagnostic Radiology | DX: R11.10 Vomiting, unspecified (principal); Z98.84 Bariatric surgery status | CPT/HCPCS: 74246 ==

== ENCOUNTER 2023-06-18 07:55 | Outpatient (AMB) | payer MEDICAID, SELFPAY ==
--- NOTE | 2023-06-18 08:15 | A.OFFVIS_ITS ---
Intake Vital Signs 06/18/23 08:16 Height 5 ft 3 in Weight 169 lb 5.04 oz BMI 30.0 BP 125/72 Blood Pressure Location Rt brachial Position Sitting Pulse 63 Pulse Source Pulse Oximeter Temp 97.5 F Temp Source Tympanic Pulse Oximetry (%) 99 Oxygen Delivery Method Room Air Intake Visit Reasons: (OV) Possible Cholecystectomy (Referred by Teodora) Isotope Technician Required: Yes Isotope Technician Language: Linen Folder Name: guillermina Information Interpreted: non-clinical & clinical Sustainability Coach: Sustainability Coach Present Allergies Penicillins Allergy (Severe, Verified 06/18/23 08:21) Anaphylaxis aspirin Allergy (Intermediate, Verified 06/18/23 08:21) Rash seafood Allergy (Intermediate, Verified 06/18/23 08:21) Rash Medication List - Last Reconciled 06/18/23 by Sascha Dave MD albuterol sulfate 90 mcg/actuation 2 puffs inhalation Q4-6H PRN atorvastatin 20 mg PO DAILY betamethasone dipropionate 0.05% 1 appl topical DAILY PRN bupropion HCl 1 tab PO DAILY buspirone 5 mg PO BID ikdtobgfnm-vqhdhtdtncljf-uixm 50-325-40 mg 1 cap PO Q4H PRN cholecalciferol (vitamin D3) 25 mcg PO DAILY citalopram 20 mg PO DAILY cyclobenzaprine 10 mg PO Q8H gabapentin 300 mg PO BEDTIME hydroxyzine HCl 50 mg PO BID oxybutynin chloride 5 mg PO DAILY pantoprazole 40 mg PO DAILY sennosides (senna) 8.6 mg PO DAILY sumatriptan succinate (Imitrex) 100 mg PO Q2-4H PRN tizanidine 4 mg PO BID PRN 30 days topiramate 50 mg PO BID tramadol 50 mg PO Q6H PRN HPI HPI Comments History of Present Illness Details The patient is a 43-year-old woman who is seen with the help of interpretive services since she speaks primarily Khmer. Patient underwent successful laparoscopic sleeve gastrectomy 01/06/22 with weight loss down to 165 lb. She is up 4 lb since her last visit and is seen because of pain that she reports in her back/flank that is radiating down her right leg to her hip. That her symptoms are roughly the same and continues to note difficulties with constipation primarily. There is no clear biliary colic type symptoms at today's visit. We reviewed the fact that her sleeve gastrectomy may cause biliary colic quicker than usual due to rapid emptying of the sleeve, but today she is focused on constipation, her meal plan and unsatisfactory weight loss in spite of following the meal plan. She notes that she has not had a bowel movement since her upper GI on 06/17/2023. She reports that she is using p.r.n. Pepcid, senna, and denies any standing bowel regime. She is using milk of magnesia as described, but having hard bowel movements. While the patient denies any dysphagia, she reports that most mornings, while she is brushing her teeth she vomits green, bilious, nonbloody material. She notes a constant right upper quadrant/right flank aching and reports this pain is sometimes worse after eating meat or fish. Pain is fairly immediate and definitely within 15 minutes. Patient also reports constipation and is taking milk of magnesia 3 times a week. Her current meal plan include skipping breakfast, having fruit salad or green salad at lunch with no protein, a protein with potatoes or other vegetables at 3-4 p.m. and a protein shake at night. [facility] Medical History COVID-19 vaccine series completed BMI 34.0-34.9,adult BMI 39.0-39.9,adult Insomnia Seizures DJD (degenerative joint disease) Stress incontinence GERD (gastroesophageal reflux disease) Hyperlipidemia Sleep apnea with use of continuous positive airway pressure (CPAP) Non-insulin dependent type 2 diabetes mellitus Obesity Well woman exam Ovarian low malignant potential tumor Umbilical hernia Migraine Asthma Morbid obesity Pannus, abdominal Surgical History S/P laparoscopic sleeve gastrectomy Hx of tubal ligation History of hysterectomy History of bilateral breast reduction surgery Family History Father History of prostate cancer Maternal Aunt History of breast cancer Mother Hypertension Hyperlipidemia Brother Thyroid condition Hypertension Brother No problems noted. Son No problems noted. Daughter No problems noted. Social History Are you a primary neonatal intensive care nurse to a significant other at home: No Do you presently have visiting nurse or other home services: No Alcohol intake: never Patient Tobacco Use Status: Never used Tobacco service: No Female Reproductive History Menstrual Age of Menarche: 11 Review of Systems Const All systems reviewed & are unremarkable except as noted in HPI and below Reports as per HPI Physical Exam Vital Signs: Last Vital Signs Temp 97.5 F 06/18/23 08:16 Pulse 63 06/18/23 08:16 BP 125/72 06/18/23 08:16 Pulse Ox 99 06/18/23 08:16 Oxygen Delivery Method Room Air 06/18/23 08:16 BMI result Body Mass Index 30.0 On exam, she is anicteric and nontoxic She is having no respiratory difficulty Her abdomen is soft with no peritoneal sign, she has vague epigastric and diffuse discomfort Results Reviewed Results Reviewed: 06/17/2023 Upper GI shows a small hiatal hernia with GERD and no obvious outflow problems, strictures. Labs showed normal liver function test, hemoglobin 13.5, platelet count 291 K Lipase was normal at 30 BUN 11, creatinine 0.82, electrolytes within normal parameters Assessment & Plan Assessment & Plan (1) Gallstones: Code(s): K80.20 - Calculus of gallbladder without cholecystitis without obstruction (2) Vomiting: Code(s): R11.10 - Vomiting, unspecified Qualifiers: Vomiting type: unspecified (3) Abdominal pain: Code(s): R10.9 - Unspecified abdominal pain (4) Sacroiliac joint dysfunction of right side: Code(s): M53.3 - Sacrococcygeal disorders, not elsewhere classified (5) Lumbar spondylosis: Code(s): M47.816 - Spondylosis without myelopathy or radiculopathy, lumbar region (6) Discogenic lumbar pain: Code(s): M54.59 - Other low back pain (7) Constipation: Code(s): K59.00 - Constipation, unspecified (8) S/P laparoscopic sleeve gastrectomy: Comment: 01/06/22 Code(s): Z98.84 - Bariatric surgery status (9) GERD (gastroesophageal reflux disease): Code(s): K21.9 - Gastro-esophageal reflux disease without esophagitis Plan With the help of interpretive services, I reviewed her workup to this point, weight regain, diet and recommended she continue the current meal plan and minimize foods other than her protein shakes and continue to follow her symptoms. It is unclear her gallbladder/gallstone or contributing to her symptoms in today she is focused more on her constipation than anything that sounds like biliary colic. I reviewed options with the patient: We could schedule lap choly and understand upfront that it may not affect her symptoms. The other option would be to try medical management of her GERD and constipation which will take a couple of weeks to demonstrate affect; she would like to try addressing her GERD and constipation so I sent a prescription for Protonix and gave her my handout on docusate, 2 tablets b.i.d., the use of bisacodyl suppositories and every other day milk of magnesia with a goal of finding a regime that she tolerates that addresses her symptoms. If she develops upper abdominal/right upper quadrant pain, she will contact me and we will reconsider cholecystectomy. The possible need for an EGD and biopsies was also discussed and the patient will follow-up with me at the end of June. She will follow up with Teodora Cervantes as previously arranged. Patient's questions seemed to be satisfactorily answered. Medications: New pantoprazole 40 mg PO DAILY 30 tabs 2RF Coding Level of Care Code Est Pt Level 4 (67916) Diagnoses Gallstones K80.20 Vomiting R11.10 Vomiting type: unspecified Abdominal pain R10.9 Sacroiliac joint dysfunction of right side M53.3 Lumbar spondylosis M47.816 Discogenic lumbar pain M54.59 Constipation K59.00 S/P laparoscopic sleeve gastrectomy Z98.84 GERD (gastroesophageal reflux disease) K21.9
[2023-06-18 08:16] VITALS: BP 125/72; PULSE 63; TEMP 36.4; O2SAT 99
== END 2023-06-18 08:48 | disposition home or self-care (01) ==
PROVIDERS: PCP Internal Medicine; Visit Provider Surgery
DX: K80.20 Calculus of gallbladder without cholecystitis without obstruction (principal); R11.10 Vomiting, unspecified; R10.9 Unspecified abdominal pain; M53.3 Sacrococcygeal disorders, not elsewhere classified; M47.816 Spondylosis without myelopathy or radiculopathy, lumbar region; M54.59 Other low back pain; K59.00 Constipation, unspecified; Z98.84 Bariatric surgery status; K21.9 Gastro-esophageal reflux disease without esophagitis
CPT/HCPCS: 99214

== ENCOUNTER → 2023-06-18 07:55 | Outpatient (BNVA) | payer MEDICAID, SELFPAY | PROVIDERS: PCP Internal Medicine; Visit Provider Surgery | DX: K80.20 Calculus of gallbladder without cholecystitis without obstruction (principal); R11.10 Vomiting, unspecified; R10.9 Unspecified abdominal pain; K59.00 Constipation, unspecified; K21.9 Gastro-esophageal reflux disease without esophagitis; M53.3 Sacrococcygeal disorders, not elsewhere classified; M47.816 Spondylosis without myelopathy or radiculopathy, lumbar region; M54.59 Other low back pain; Z98.84 Bariatric surgery status | CPT/HCPCS: 99212 ==

== ENCOUNTER 2023-07-15 08:20 | Outpatient (AMB) | payer MEDICAID, SELFPAY ==
--- NOTE | 2023-07-15 08:23 | A.OFFVIS_ITS ---
Intake Vital Signs 07/15/23 08:33 Height 5 ft 3 in Weight 170 lb BMI 30.1 BP 116/69 Blood Pressure Location Lt brachial Position Sitting Pulse 53 Intake Visit Reasons: 6 month breast examination Intake Note: Patient is seen in office for 6 month follow up visit, breast exam. Patient c/o: denies any concerns or changes since last visit Network Relations Consultant Required: No Pump Station Operator: Pump Station Operator Present Accompanied by: Self / Same As Patient Allergies Penicillins Allergy (Severe, Verified 07/15/23 08:33) Anaphylaxis aspirin Allergy (Intermediate, Verified 07/15/23 08:33) Rash seafood Allergy (Intermediate, Verified 07/15/23 08:33) Rash Medication List - Last Reconciled 07/15/23 by Luis Carlos Adrian MD albuterol sulfate 90 mcg/actuation 2 puffs inhalation Q4-6H PRN atorvastatin 20 mg PO DAILY betamethasone dipropionate 0.05% 1 appl topical DAILY PRN bupropion HCl 1 tab PO DAILY buspirone 5 mg PO BID hhikfyfddy-iubysvuteupct-grpv 50-325-40 mg 1 cap PO Q4H PRN cholecalciferol (vitamin D3) 25 mcg PO DAILY citalopram 20 mg PO DAILY cyclobenzaprine 10 mg PO Q8H gabapentin 300 mg PO BEDTIME hydroxyzine HCl 50 mg PO BID oxybutynin chloride 5 mg PO DAILY pantoprazole 40 mg PO DAILY sennosides (senna) 8.6 mg PO DAILY sumatriptan succinate (Imitrex) 100 mg PO Q2-4H PRN tizanidine 4 mg PO BID PRN 30 days topiramate 50 mg PO BID tramadol 50 mg PO Q6H PRN HPI HPI Comments History of Present Illness Details 43-year-old female patient presenting fo r a high risk breast cancer evaluation due to a strong family history of breast cancer. She denies a previous history of breast problems but did undergo a bilateral reduction mammoplasty in 2009 and tolerated the surgery well. Her calculated Tyrer-Cuzick model remaining lifetime risk of breast cancer was calculated at 34%, well above the 20% threshold for high risk protocol. She was evaluated with bilateral breast MRI without/with contrast on 09/23/2022 this revealed no MR specific evidence of malignancy (left breast BI-RADS 2 bilaterally). Her most recent mammogram dated 12/22/2022 revealed no mammographic evidence of malignancy (BI- RADS 2). She reports approximally 4 aunts with breast cancer. She had a pre malignant ovarian lesion subsequently underwent hysterectomy in October 2011. She has a prior history of a fibroadenoma but denies any pre malignant breast lesions. She denies a prior history of genetic testing and is uncertain of any family history of genetic defects. She denies a history of smoking, alcohol consumption, or radiation exposure. She is 1st at age 18, menarche at age 11. She underwent genetic testing on 11/18/2021. This revealed no clinically significant mutations and no mutations of unknown significance. An elevated risk for breast cancer due to her strong family history was identified once again with a [facility] risk of breast cancer in her remaining life of 34%. Since her last visit she reports no breast related symptoms and generally feels well. She is due for a bilateral breast mammo in December 2023 and breast MRI in September 2023. [facility] Medical History COVID-19 vaccine series completed BMI 34.0-34.9,adult BMI 39.0-39.9,adult Insomnia Seizures DJD (degenerative joint disease) Stress incontinence GERD (gastroesophageal reflux disease) Hyperlipidemia Sleep apnea with use of continuous positive airway pressure (CPAP) Non-insulin dependent type 2 diabetes mellitus Obesity Well woman exam Ovarian low malignant potential tumor Umbilical hernia Migraine Asthma Morbid obesity Pannus, abdominal Surgical History S/P laparoscopic sleeve gastrectomy Hx of tubal ligation History of hysterectomy History of bilateral breast reduction surgery Family History Father History of prostate cancer Maternal Aunt History of breast cancer Mother Hypertension Hyperlipidemia Brother Thyroid condition Hypertension Brother No problems noted. Son No problems noted. Daughter No problems noted. Social History Are you a primary certified social workers in health care to a significant other at home: No Do you presently have visiting nurse or other home services: No Alcohol intake: never Patient Tobacco Use Status: Never used Tobacco service: No Female Reproductive History Menstrual Age of Menarche: 11 Date of Mammogram: 12/22/22 Review of Systems Const Denies chills, Denies fever(s), Denies headache(s) and Denies poor appetite ENT Denies dizziness and Denies headache(s) Card Denies chest pain, Denies rapid heart rate, Denies palpitations and Denies slow heart rate Resp Denies chest congestion, Denies cough, Denies pain on inspiration and Denies wheezing GI Denies abdominal pain, Denies bloating, Denies change in stool character, Denies constipation, Reports dyspepsia, Denies diarrhea, Denies nausea, Denies vomiting and Denies hematemesis Denies nipple discharge and Reports urinary incontinence Musc Denies back pain, Denies arthralgias, Denies joint swelling and Denies numbness Skin/Breast Denies breast skin changes, Denies breast pain, Denies breast mass, Denies change in pigmentation, Denies nipple discharge, Denies erythema and Denies rash Neuro Denies dizziness, Denies headache(s), Denies numbness and Reports seizure-like activity Psych Denies anxiety and Denies depression Endo Denies palpitations Alejandro/Lymph Denies easy bleeding, Denies easy bruising and Denies lymphadenopathy Aller/Immun Denies wheezing Physical Exam Vital Signs: Last Vital Signs Pulse 53 07/15/23 08:33 BP 116/69 07/15/23 08:33 BMI result Body Mass Index 30.1 Const General: cooperative, comfortable and well developed Nutritional Appearance: well nourished Orientation/consciousness: patient oriented x3 Eyes Sclerae: sclerae normal EOM: EOMs intact bilaterally Neck Neck: Yes normal visual inspection Chest Other: Bilateral breast reduction incisions Left breast: No skin change, no nipple retraction, no nipple discharge, no palpable mass, no enlarged lymph nodes. Right breast: No skin change, no nipple retraction, no nipple discharge, no palpable mass, no enlarged lymph nodes Resp Effort & Inspection: normal respiratory effort, no cough, no respiratory distress and no stridor Cardio Jugular venous distension: no JVD GI Inspection: Yes normal to inspection Palpation (GI): Soft to palpation, nontender, no guarding and not rigid Skin General skin exam: dry skin Rashes: no rashes Neuro General: patient oriented x3 and no focal motor deficits Extrem General: Yes full ROM and Yes no clubbing, cyanosis or edema Psych Appearance: grossly normal Assessment & Plan Assessment & Plan (1) At high risk for breast cancer: Code(s): Z91.89 - Other specified personal risk factors, not elsewhere classified Plan 43-year-old female patient presenting with a strong family history breast cancer presenting today for high risk breast cancer evaluation. Her most recent mammogram 12/22/2022 revealed no suspicious findings but her calculated Tyrer- Cuzick risk for breast cancer in her remaining life was calculated at 34%. MRI dated 09/23/2022 revealed no MR specific evidence of malignancy (BI-RADS 2 bilaterally). Examination revealed no suspicious findings in either breast. She should continue with yearly mammograms and breast MRIs alternating every 6 months. She should continue with twice yearly clinical breast examinations, yearly mammogram alternating with yearly breast MRI. She is welcome to call sooner for any new concerns. Orders: Orders MR breast BI wo/w con Today Z91.89 - Other specified personal risk factors, not elsewhere classified Coding Level of Care Code Est Pt Level 3 (73723) Diagnoses At high risk for breast cancer Z91.89
[2023-07-15 08:33] VITALS: BP 116/69; PULSE 53; BMI 30.1
== END 2023-07-15 08:40 | disposition home or self-care (01) ==
PROVIDERS: PCP Internal Medicine; Visit Provider Surgery
DX: Z91.89 Other specified personal risk factors, not elsewhere classified (principal)
CPT/HCPCS: 99213

== ENCOUNTER → 2023-07-15 08:20 | Outpatient (BNVA) | payer MEDICAID, SELFPAY | PROVIDERS: Visit Provider Surgery | DX: Z91.89 Other specified personal risk factors, not elsewhere classified (principal) | CPT/HCPCS: 99212 ==

== ENCOUNTER 2023-07-19 08:08 | Outpatient (AMB) | payer MEDICAID, SELFPAY ==
[2023-07-19 08:11] VITALS: BP 140/79; PULSE 60; TEMP 36; O2SAT 98; BMI 29.9
--- NOTE | 2023-07-19 08:11 | MHC.OFFVIS ---
Intake Vital Signs 07/19/23 08:11 Height 5 ft 3 in Weight 168 lb 13.985 oz BMI 29.9 BP 140/79 H Blood Pressure Location Rt brachial Position Sitting Pulse 60 Pulse Source Pulse Oximeter Temp 96.8 F Temp Source Tympanic Pulse Oximetry (%) 98 Oxygen Delivery Method Room Air Intake Visit Reasons: (OV) Possible Cholecystectomy (Referred by Teodora) Motors Assembler Required: Yes Motors Assembler Name: ALMAS Tapia Information Interpreted: clinical only Diploma Maker: Diploma Maker Present Allergies Penicillins Allergy (Severe, Verified 07/19/23 08:15) Anaphylaxis aspirin Allergy (Intermediate, Verified 07/19/23 08:15) Rash seafood Allergy (Intermediate, Verified 07/19/23 08:15) Rash Medication List - Last Reconciled 07/19/23 by Sascha Dave MD albuterol sulfate 90 mcg/actuation 2 puffs inhalation Q4-6H PRN atorvastatin 20 mg PO DAILY betamethasone dipropionate 0.05% 1 appl topical DAILY PRN bupropion HCl 1 tab PO DAILY buspirone 5 mg PO BID zpttmxkoxo-marqjfnusigui-pphx 50-325-40 mg 1 cap PO Q4H PRN cholecalciferol (vitamin D3) 25 mcg PO DAILY citalopram 20 mg PO DAILY cyclobenzaprine 10 mg PO Q8H gabapentin 300 mg PO BEDTIME hydroxyzine HCl 50 mg PO BID oxybutynin chloride 5 mg PO DAILY pantoprazole 40 mg PO DAILY sennosides (senna) 8.6 mg PO DAILY sumatriptan succinate (Imitrex) 100 mg PO Q2-4H PRN tizanidine 4 mg PO BID PRN 30 days topiramate 50 mg PO BID tramadol 50 mg PO Q6H PRN HPI HPI Comments History of Present Illness Details The patient is a 43-year-old woman who is seen with the help of interpretive services since she speaks primarily Congolese. Patient underwent successful laparoscopic sleeve gastrectomy 01/06/22 with weight loss down to 165 lb. Her weight is 168lbs/BMI 29.9 today. She is seen because of pain that she reports in her back/flank that is radiating down her right leg to her hip. That her symptoms are roughly the same and continues to note difficulties with constipation primarily. There is no clear biliary colic type symptoms at today's visit. We reviewed the fact that her sleeve gastrectomy may cause biliary colic quicker than usual due to rapid emptying of the sleeve, but today she is focused on constipation, her meal plan and unsatisfactory weight loss in spite of following the meal plan. Today, the patient notes that she has been paying attention more to her diet and noting right upper quadrant pain that occurs after she eats and radiates to her back. She also notes a dental infection that is currently being addressed. While the patient denies any dysphagia, she reports that most mornings, while she is brushing her teeth she vomits green, bilious, nonbloody material. She notes a constant right upper quadrant/right flank aching and reports this pain is sometimes worse after eating meat or fish. Pain is fairly immediate and definitely within 15 minutes. Patient also reports constipation and is taking milk of magnesia 3 times a week. Her current meal plan include skipping breakfast, having fruit salad or green salad at lunch with no protein, a protein with potatoes or other vegetables at 3-4 p.m. and a protein shake at night. [facility] Medical History COVID-19 vaccine series completed BMI 34.0-34.9,adult BMI 39.0-39.9,adult Insomnia Seizures DJD (degenerative joint disease) Stress incontinence GERD (gastroesophageal reflux disease) Hyperlipidemia Sleep apnea with use of continuous positive airway pressure (CPAP) Non-insulin dependent type 2 diabetes mellitus Obesity Well woman exam Ovarian low malignant potential tumor Umbilical hernia Migraine Asthma Morbid obesity Pannus, abdominal Surgical History S/P laparoscopic sleeve gastrectomy Hx of tubal ligation History of hysterectomy History of bilateral breast reduction surgery Family History Father History of prostate cancer Maternal Aunt History of breast cancer Mother Hypertension Hyperlipidemia Brother Thyroid condition Hypertension Brother No problems noted. Son No problems noted. Daughter No problems noted. Social History Are you a primary child care education coordinator to a significant other at home: No Do you presently have visiting nurse or other home services: No Alcohol intake: never Patient Tobacco Use Status: Never used Tobacco service: No Female Reproductive History Menstrual Age of Menarche: 11 Review of Systems Const All systems reviewed & are unremarkable except as noted in HPI and below Reports as per HPI Physical Exam Vital Signs: Last Vital Signs Temp 96.8 F 07/19/23 08:11 Pulse 60 07/19/23 08:11 BP 140/79 H 07/19/23 08:11 Pulse Ox 98 07/19/23 08:11 Oxygen Delivery Method Room Air 07/19/23 08:11 BMI result Body Mass Index 29.9 On exam, she is anicteric and nontoxic She is having no respiratory difficulty Her abdomen is soft with no peritoneal sign, she has vague epigastric and diffuse discomfort Results Reviewed Results Reviewed: 06/17/2023 Upper GI shows a small hiatal hernia with GERD and no obvious outflow problems, strictures. Labs showed normal liver function test, hemoglobin 13.5, platelet count 291 K Lipase was normal at 30 BUN 11, creatinine 0.82, electrolytes within normal parameters Assessment & Plan Assessment & Plan (1) Gallstones: Code(s): K80.20 - Calculus of gallbladder without cholecystitis without obstruction (2) S/P laparoscopic sleeve gastrectomy: Comment: 01/06/22 Code(s): Z98.84 - Bariatric surgery status Plan Via head of transport logistics, I explained to the patient that her presenting symptoms were clearly not related to her gallbladder. However, since she notes developing of right upper quadrant symptoms that occur after eating, the option of laparoscopic/possible open cholecystectomy, possible cholangiogram was reviewed and her questions answered. I explained the symptoms of biliary colic and recommended laparoscopic cholecystectomy. I reviewed the option of continued observation and 2nd opinion which was declined. I also reviewed the inherent risks to surgery which include, but are not limited to: Bleeding that could require another operation or blood transfusion, the need for open surgery, the unlikely but possible issue of bile leak that could require an ERCP, the risk of retained common duct stones that could require an ERCP, the risk of common bile duct injury which would require transfer to a larger institution for another operation. Patient seemed to understand her options, 2nd opinion and wants to proceed. I also explained that the patient will likely continue to have persistent symptoms regarding her hip, back and other symptoms that were not related to her gallbladder when we 1st met. She notes her bowel regime is currently better. Instructions regarding diet and activity reviewed and apparently understood. The patient is advised to avoid rich fatty foods postoperatively to avoid GI distress/diarrhea and advised to not lift more than 20 lb for medical reasons to minimize the risk of hernia postoperatively. She states she is currently not working. Patient will make arrangements regarding transportation, she will report void her urinary bladder validation manager, have SCDs and receive an Levaquin, 500 mg IV on-call to surgery given her anaphylactic reaction to penicillin. Coding Level of Care Code Tele Est Pt Level 4 (29263) Diagnoses Gallstones K80.20 S/P laparoscopic sleeve gastrectomy Z98.84
== END 2023-07-19 08:49 | disposition home or self-care (01) ==
PROVIDERS: PCP Internal Medicine; Visit Provider Surgery
DX: K80.20 Calculus of gallbladder without cholecystitis without obstruction (principal); Z98.84 Bariatric surgery status
CPT/HCPCS: 99214

== ENCOUNTER → 2023-07-19 08:08 | Outpatient (BNVA) | payer MEDICAID, SELFPAY | PROVIDERS: PCP Internal Medicine; Visit Provider Surgery | DX: K80.20 Calculus of gallbladder without cholecystitis without obstruction (principal); Z98.84 Bariatric surgery status | CPT/HCPCS: 99212 ==

== ENCOUNTER 2023-07-29 05:57 | Day surgery (SDC) | payer MEDICAID, SELFPAY ==
[2023-07-27 11:28] VITALS: BMI 29.2
--- NOTE | 2023-07-28 14:21 | HO.ANESPROP2 ---
Documented by User: Hilary Johns NP 07/28/23 14:24 HPI - Anesthesia Eval Consult details Narrative: 43yo F for Cholecystectomy Laparoscopic, possible open, possible cholangiogram s/p gastric sleeve 12/2021 s/p tubal PMFSH Active Problems Active Problems: All Active Problems (Updated 06/11/23 @ 10:38 by Sascha Dave MD, [facility]) Vomiting (Acute) Gallstones (Acute) Abdominal pain (Acute) Well woman exam (Acute) Sacroiliac joint dysfunction of right side (Acute) Sacroiliitis (Acute) Discogenic lumbar pain (Acute) Lumbar spondylosis (Acute) Muscle spasm of back (Acute) Overweight (Acute) Constipation (Acute) S/P laparoscopic sleeve gastrectomy (Acute) Vitamin A deficiency (Acute) Vitamin B12 deficiency (Acute) BMI 38.0-38.9,adult (Acute) At high risk for breast cancer (Acute) Insomnia (Acute) Seizures (Acute) DJD (degenerative joint disease) (Acute) Stress incontinence (Acute) GERD (gastroesophageal reflux disease) (Acute) Hyperlipidemia (Acute) Sleep apnea with use of continuous positive airway pressure (CPAP) (Acute) Non-insulin dependent type 2 diabetes mellitus (Acute) Obesity (Acute) Umbilical hernia (Acute) Migraine (Acute) Asthma (Acute) Pannus, abdominal (Acute) Past Medical History Medical History COVID-19 vaccine series completed BMI 34.0-34.9,adult BMI 39.0-39.9,adult Insomnia Seizures DJD (degenerative joint disease) Stress incontinence GERD (gastroesophageal reflux disease) Hyperlipidemia Sleep apnea with use of continuous positive airway pressure (CPAP) Non-insulin dependent type 2 diabetes mellitus Obesity Well woman exam Ovarian low malignant potential tumor Umbilical hernia Migraine Asthma Morbid obesity Pannus, abdominal Family History Family History Father History of prostate cancer Maternal Aunt History of breast cancer Mother Hypertension Hyperlipidemia Brother Thyroid condition Hypertension Brother No problems noted. Son No problems noted. Daughter No problems noted. Family history of problems with anesthesia: Yes Surgical History Surgical History S/P laparoscopic sleeve gastrectomy Hx of tubal ligation History of hysterectomy History of bilateral breast reduction surgery History of Problems with Anesthesia: No Social History Social History Are you a primary home care nurse to a significant other at home: No Do you presently have visiting nurse or other home services: No Alcohol intake: never Patient Tobacco Use Status: Never used Tobacco service: No Meds Allergies Allergy/AdvReac Type Severity Reaction Status Date / Time Penicillins Allergy Severe Anaphylaxis Verified 07/27/23 11:34 aspirin Allergy Intermediate Rash Verified 07/27/23 11:34 seafood Allergy Intermediate Anaphylaxis, Verified 07/27/23 11:34 rash Home Medications Medication Instructions Recorded Confirmed Last Taken Type albuterol sulfate 90 mcg/actuation 2 puff inhalation Q4-6H PRN 07/11/20 07/27/23 01/05/22 History aerosol inhaler Wheezing atorvastatin 20 mg tablet 20 mg PO DAILY 07/11/20 07/27/23 01/05/22 History betamethasone dipropionate 0.05 % 1 applic topical DAILY PRN Rash 07/11/20 07/27/23 01/05/22 History topical cream buspirone 10 mg tablet 5 mg PO BID 07/11/20 07/27/23 01/05/22 History xzcafhetwi-sfvyskrxzwoqc-ytvxaebs 1 cap PO Q4H PRN Migraine Headache 07/11/20 07/27/23 01/05/22 History 50 mg-325 mg-40 mg capsule citalopram 20 mg tablet 20 mg PO DAILY 07/11/20 07/27/23 01/05/22 History hydroxyzine HCl 50 mg tablet 50 mg PO BID 07/11/20 07/27/23 01/05/22 History sumatriptan succinate 100 mg 100 mg PO Q2-4H PRN Migraine 07/11/20 07/27/23 Unknown History tablet (Imitrex) Headache topiramate 50 mg tablet 50 mg PO BID 07/11/20 07/27/23 01/05/22 History gabapentin 300 mg capsule 300 mg PO BEDTIME 08/27/21 07/27/23 01/05/22 History oxybutynin chloride 5 mg tablet 5 mg PO DAILY 08/27/21 07/27/23 Unknown History bupropion HCl 75 mg tablet 1 tab PO DAILY 04/07/27/23 01/05/22 History Exam Exam Date and Time: July 28, 2023 1421 Height,Weight and Vital Signs: Height 5 ft 3 in Weight 74.843 kg Pertinent Lab Results Pertinent Lab Results: Laboratory Tests 06/12/23 09:06 WBC 5.8 Hgb 13.5 Hct 41.6 Plt Count 291 Sodium 145 Potassium 4.6 Chloride 108 Carbon Dioxide 27 BUN 11 Creatinine 0.82 Assessment and Plan Assessment Anesthesia Assessment: Chart Reviewed Final Anesthetic Review Family History of Problems with Anesthesia: Yes History of Problems with Anesthesia: No Documented by User: Puneet Wellington MD 07/29/23 17:40 PMFSH Past Medical History Medical History COVID-19 vaccine series completed BMI 34.0-34.9,adult BMI 39.0-39.9,adult Insomnia Seizures DJD (degenerative joint disease) Stress incontinence GERD (gastroesophageal reflux disease) Hyperlipidemia Sleep apnea with use of continuous positive airway pressure (CPAP) Non-insulin dependent type 2 diabetes mellitus Obesity Well woman exam Ovarian low malignant potential tumor Umbilical hernia Migraine Asthma Morbid obesity Pannus, abdominal Family History Family History Father History of prostate cancer Maternal Aunt History of breast cancer Mother Hypertension Hyperlipidemia Brother Thyroid condition Hypertension Brother No problems noted. Son No problems noted. Daughter No problems noted. Surgical History Surgical History S/P laparoscopic sleeve gastrectomy Hx of tubal ligation History of hysterectomy History of bilateral breast reduction surgery Social History Social History Are you a primary home care nurse to a significant other at home: No Do you presently have visiting nurse or other home services: No Alcohol intake: never Patient Tobacco Use Status: Never used Tobacco service: No Meds Allergies Allergy/AdvReac Type Severity Reaction Status Date / Time Penicillins Allergy Severe Anaphylaxis Verified 07/27/23 11:34 aspirin Allergy Intermediate Rash Verified 07/27/23 11:34 seafood Allergy Intermediate Anaphylaxis, Verified 07/27/23 11:34 rash Home Medications Medication Instructions Recorded Confirmed Last Taken Type albuterol sulfate 90 mcg/actuation 2 puff inhalation Q4-6H PRN 07/11/20 07/27/23 01/05/22 History aerosol inhaler Wheezing atorvastatin 20 mg tablet 20 mg PO DAILY 07/11/20 07/27/23 01/05/22 History betamethasone dipropionate 0.05 % 1 applic topical DAILY PRN Rash 07/11/20 07/27/23 01/05/22 History topical cream buspirone 10 mg tablet 5 mg PO BID 07/11/20 07/27/23 01/05/22 History ajmzdfpcly-njikkkaqzsvao-qayopjzq 1 cap PO Q4H PRN Migraine Headache 07/11/20 07/27/23 01/05/22 History 50 mg-325 mg-40 mg capsule citalopram 20 mg tablet 20 mg PO DAILY 07/11/20 07/27/23 01/05/22 History hydroxyzine HCl 50 mg tablet 50 mg PO BID 07/11/20 07/27/23 01/05/22 History sumatriptan succinate 100 mg 100 mg PO Q2-4H PRN Migraine 07/11/20 07/27/23 Unknown History tablet (Imitrex) Headache topiramate 50 mg tablet 50 mg PO BID 07/11/20 07/27/23 01/05/22 History gabapentin 300 mg capsule 300 mg PO BEDTIME 08/27/21 07/27/23 01/05/22 History oxybutynin chloride 5 mg tablet 5 mg PO DAILY 08/27/21 07/27/23 Unknown History bupropion HCl 75 mg tablet 1 tab PO DAILY 01/06/22 07/27/23 01/05/22 History Exam Airway Mallampati Class: III Neck ROM: Full Loose/Missing/Broken Teeth: Yes Assessment and Plan Assessment Anesthesia Assessment: Anesthesia Plan Discussed Final Anesthetic Review NPO: Yes ASA Class: III Final Preanesthetic Review: Meds/Allgs Chart Reviewed, Consent Obtained/Reviewed and Anes Risks/Benef Reviewed Patient Risk: Intermediate Procedure Risk: Intermediate Anesthetic Plan Anesthetic Plan: GA and Agree w/ Assess. and Plan Disposition: Standard PACU
--- NOTE | 2023-07-28 15:16 | MHC.SHP ---
Pre-Procedural Eval Section A Date of Service: 07/28/23 The patient is an INPATIENT: No The History & Physical has been completed within 30 days and I have reviewed it.: Yes Section B Chief Complaint: Calculus of gallbladder without cholecystitis with Allergies: Allergies Allergy/AdvReac Type Severity Reaction Status Date / Time Penicillins Allergy Severe Anaphylaxis Verified 07/27/23 11:34 aspirin Allergy Intermediate Rash Verified 07/27/23 11:34 seafood Allergy Intermediate Anaphylaxis, Verified 07/27/23 11:34 rash Plan I have reviewed the history and physical and performed a pertinent physical examination on my patient. No changes have occurred unless specified. Time Spent With Patient Time: Total time managing care of this patient today ____ minutes.
[2023-07-29] VITALS (22 sets, daily range): BP systolic 110–134; BP diastolic 65–77; PULSE 50–70; RESP 14–18; TEMP 36.1–36.5; O2SAT 96–100
--- NOTE | 2023-07-29 06:46 | P.OP_ITS ---
Operative Note Operative Note Date of Service: 07/22/23 Narrative: Preop diagnosis: [cholelithiasis, possible biliary colic] Postop diagnosis: [same, adhesions from sleeve gastrectomy] Procedure: [] Surgeon: Sascha Dave MD, FACS, [facility] Assist: [Reanna Welch, RN] Anesthesia: [GET, Marcaine, 0.25% plain] Estimated blood loss: [3cc] Specimen: [GB & contents] Intraoperative findings: [Critical view of safety demonstrated with a 4-5 mm cystic duct and a 3 mm cystic artery; adhesions to the patient's prior abdominal incisions requiring a 10 minute lysis of adhesions; NAFLD] Indications: [Patient underwent successful laparoscopic sleeve gastrectomy 01/06/22 with weight loss down to 165 lb. Preoperative workup included abdominal ultrasound that did not demonstrate gallstones. Postoperatively, the patient has had somatic complaints including weight regain and after adjustment of her diet, reported right upper quadrant pain that occurs fairly quickly after eating associated with nausea and radiation to her back & Abd U/S demonstrating gallstones, NAFLD & 3mm CBD. We discussed her other somatic complaints involving her legs and arms and that they were not related to her gallbladder & her RUQ symptoms may be due to weight regain and related fatty liver disease and may persist postoperatively. Options including a 2nd opinion were reviewed with interpretive services with the patient as well as the option of cholecystectomy. Patient seemed understand her options and wanted to proceed with a laparoscopic cholecystectomy. I reviewed the option of continued observation and 2nd opinion which was declined. I also reviewed the inherent risks to surgery which include, but are not limited to: Bleeding that could require another operation or blood transfusion, the need for open surgery, the unlikely but possible issue of bile leak that could require an ERCP, the risk of retained common duct stones that could require an ERCP, the risk of common bile duct injury which would require transfer to a larger institution for another operation. Explained with interpretive services that her somatic complaints are not likely related to her gallbladder and will likely persist and may even require investigation by a different physician. The option of addressing these symptoms preoperatively was offered to the patient, options reviewed with the patient via order tracer and apparently understood; she wanted to proceed with cholecystectomy postoperative activity and dietary recommendations were discussed with the patient and she seemed understand.] Procedure: [The patient was identified in preoperative holding and again in the operating room and placed supine on the table. An appropriate time-out was performed and preemptive local used at all trocar insertion sites. I began at the patient's supraumbilical midline and placed a Veress needle through a tra nsverse supraumbilical incision. An appropriate drop test was performed. The needle was connected to high flow and opening pressures were 6 mmHg. A pneumoperitoneum of 15 mmHg was then obtained using carbon dioxide. The Veress needle was then removed and I accessed the patient's abdomen through the supraumbilical midline incision using a 5 mm Optiview trocar and 30 degree/5 mm laparoscopic without incident. Next a a 5 mm epigastric and two 5 mm right subcostal ports were placed with preemptive analgesia under direct laparoscopic vision without incident and the supraumbilical trocar upsized to a 12 mm trocar under direct laparoscopic vision. The gallbladder was clearly identified and grasped by its fundus. It was retracted cranially and anteriorly and dissection began in the lateral cystic triangle. The cystic duct was identified at its junction on the gallbladder and dissection carried medially, then circumferentially using the [place] dissector and hook. The cystic artery was then carefully identified and circumferentially dissected. Once dissection of both structures was complete and the critical view of safety demonstrated, the duct and artery were double clipped proximally and once distally and sharply divided. Electrocautery was used to remove the gallbladder from its fossa on the liver. Liver bed was inspected for hemostasis and the clips were noted to be on the respective structures. The gallbladder was placed in an Endo-Catch bag and delivered through the umbilicus under direct laparoscopic vision. The abdomen was again inspected with the laparoscoped and a abdomen deflated to assess for hemostasis. The patient was returned to neutral position, the abdomen deflated and the fascia of the supraumbilical incision closed with interrupted Vicryl sutures. Skin was closed with 4-0 Monocryl subcuticular sutures. Mastisol and Steri-Strips were applied followed by Band-Aids. The patient tolerated the procedure well and was extubated recovered in stable condition. All sponge instrument counts were correct.]
[2023-07-29 07:35] LABS: Glucose, Whole Blood 90 mg/dL (60-115)
[2023-07-29] MEDS: HYDROmorphone HCl 0.5 MG/0.5 ML SYRINGE 0.25 MG IVPUSH ×2 (09:30→09:50)
[2023-07-29 10:32] LABS: Glucose, Whole Blood 87 mg/dL (60-115)
[2023-07-29] MEDS: fentaNYL citrate/PF 100 MCG/2 ML VIAL 25 MCG IVPUSH ×2 (10:35→10:42)
== END 2023-07-29 14:00 | disposition home or self-care (01) ==
LOC: HO.SSS 05:58
PROVIDERS: PCP Internal Medicine; Visit Provider Surgery
PROC: 0FT44ZZ Resection of Gallbladder, Percutaneous Endoscopic Approach (ICD-10-PCS; CPT 47562; principal; 2023-07-29 07:30)
DX: K80.10 Calculus of gallbladder with chronic cholecystitis without obstruction (principal); K82.8 Other specified diseases of gallbladder; Z98.84 Bariatric surgery status; Z90.3 Acquired absence of stomach [part of]; E66.9 Obesity, unspecified; Z68.29 Body mass index [BMI] 29.0-29.9, adult; E65 Localized adiposity; K76.0 Fatty (change of) liver, not elsewhere classified; K59.00 Constipation, unspecified; K21.9 Gastro-esophageal reflux disease without esophagitis; G43.109 Migraine with aura, not intractable, without status migrainosus; R56.9 Unspecified convulsions; N39.3 Stress incontinence (female) (male); E78.5 Hyperlipidemia, unspecified; G47.33 Obstructive sleep apnea (adult) (pediatric); J45.909 Unspecified asthma, uncomplicated; E11.9 Type 2 diabetes mellitus without complications; Z79.84 Long term (current) use of oral hypoglycemic drugs; Z79.899 Other long term (current) drug therapy; Z99.89 Dependence on other enabling machines and devices; Z88.0 Allergy status to penicillin; Z88.8 Allergy status to other drugs, medicaments and biological substances; Z98.890 Other specified postprocedural states
CPT/HCPCS: 47562; 82947; 88304; C1713; J0131; J0665; J1100; J1170; J1956; J2250; J2371; J2405; J2550; J3010

== ENCOUNTER → 2023-07-29 05:57 | Outpatient (BNV) | payer MEDICAID, SELFPAY | PROVIDERS: PCP Internal Medicine; Visit Provider Surgery | DX: K80.20 Calculus of gallbladder without cholecystitis without obstruction (principal) | CPT/HCPCS: 47562 ==

== ENCOUNTER 2023-08-09 08:42 | Outpatient (AMB) | payer MEDICAID, SELFPAY ==
--- NOTE | 2023-08-09 09:10 | A.OFFVIS_ITS ---
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 Patient underwent successful laparoscopic sleeve gastrectomy 01/06/22 with weight loss down to 165 lb. Her weight is 167lbs/BMI 29.9 today. Patient is seen with the help of interpretive services [id number] and notes that she is doing well, denies nausea vomiting or fevers. She is tolerating her diet but notes continuing constipation and forgot that she is post be taking all of magnesia 3 times a week. She otherwise denies interval change [facility] Medical History (Reviewed 07/19/23 @ 08:45 by Sascha Dave MD, FACS, [facility]) COVID-19 vaccine series completed BMI 34.0-34.9,adult BMI 39.0-39.9,adult Insomnia Seizures DJD (degenerative joint disease) Stress incontinence GERD (gastroesophageal reflux disease) Hyperlipidemia Sleep apnea with use of continuous positive airway pressure (CPAP) Non-insulin dependent type 2 diabetes mellitus Obesity Well woman exam Ovarian low malignant potential tumor Umbilical hernia Migraine Asthma Morbid obesity Pannus, abdominal Surgical History (Updated 08/09/23 @ 08:08 by Keri Allen [facility]) Hx laparoscopic cholecystectomy S/P laparoscopic sleeve gastrectomy Hx of tubal ligation History of hysterectomy History of bilateral breast reduction surgery Family History Father History of prostate cancer Maternal Aunt History of breast cancer Mother Hypertension Hyperlipidemia Brother Thyroid condition Hypertension Brother No problems noted. Son No problems noted. Daughter No problems noted. Social History (Reviewed 07/19/23 @ 08:45 by Sascha Dave MD, FACS, [facility]) Are you a primary career technical counselor to a significant other at home: No Do you presently have visiting nurse or other home services: No Alcohol intake: never Patient Tobacco Use Status: Never used Tobacco service: No Female Reproductive History Menstrual Age of Menarche: 11 Review of Systems Const All systems reviewed & are unremarkable except as noted in HPI and below Physical Exam On exam, she is anicteric and nontoxic She is having no respiratory difficulty Her abdominal incisions are healing well with no evidence of hernia, cellulitis or pain. 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 Patient is reminded to stay on the bowel regime of milk of magnesia every other day given her ongoing constipation. She reports good success from this routine but stated that she forgets to take it. Patient is discharged from my care and will follow up with the bariatric PA in 6 months. She will contact if she has problems before then. Coding Level of Care Code Global (47593) Diagnoses Gallstones K80.20 Sacroiliac joint dysfunction of right side M53.3 S/P laparoscopic sleeve gastrectomy Z98.84
[2023-08-09 09:17] VITALS: BP 113/65; PULSE 63; TEMP 36.2; O2SAT 97; BMI 29.8
== END 2023-08-09 09:29 | disposition home or self-care (01) ==
PROVIDERS: PCP Internal Medicine; Visit Provider Surgery
DX: K80.20 Calculus of gallbladder without cholecystitis without obstruction (principal); M53.3 Sacrococcygeal disorders, not elsewhere classified; Z98.84 Bariatric surgery status
CPT/HCPCS: 99024

== ENCOUNTER → 2023-08-09 08:42 | Outpatient (BNVA) | payer MEDICAID, SELFPAY | PROVIDERS: PCP Internal Medicine; Visit Provider Surgery ==

== ENCOUNTER 2023-08-31 09:09 | Outpatient (REF) | payer MEDICAID, SELFPAY ==
--- NOTE | ~2023-08-31 | MR_ITS ---
EXAMINATION: MR BREAST WITHOUT AND WITH CONTRAST, BILATERAL CLINICAL INFORMATION: 43-year-old for high-risk screening, family history, status post reduction mammoplasty. COMPARISON: MRI 10/14/2022 and 11/13/2021. Correlation to mammogram of 12/22/2022. TECHNIQUE: Imaging was performed with a dedicated breast coil. Prior to the administration of contrast, bilateral axial T1 and bilateral axial T2 weighted sequences were obtained. After the uneventful administration of?8 mL of Gadavist, dynamic contrast-enhanced VIBRANT series through the breasts in the axial plane were performed. Subtracted images were performed and reviewed. A delayed sagittal sequence through both breasts was acquired. Additionally, CAD post-processing, including maximum intensity projections, 3-D reconstructions and kinetic analysis, were performed an independent workstation and reviewed by the interpreting radiologist is a portion of this exam. FINDINGS: The patient's fibroglandular tissue demonstrates minimal background enhancement. LEFT BREAST: No suspicious masslike or non-masslike enhancement. No abnormal skin thickening or nipple retraction. No abnormal architectural distortion. Review of the T2 weighted images demonstrates no fibrocystic changes or dilated ducts. Review of kinetic images reveals no additional findings. RIGHT BREAST: No suspicious masslike or non-masslike enhancement. No abnormal skin thickening or nipple retraction. No abnormal architectural distortion. Review of the T2 weighted images demonstrates no fibrocystic changes or dilated ducts. Review of kinetic images reveals no additional findings. There is no suspicious internal mammary chain or axillary adenopathy. Limited views of the chest and abdomen are unremarkable. MR/MR breast BI wo/w con IMPRESSION: No MR specific evidence of malignancy. ASSESSMENT: LEFT BREAST: BI-RADS 1-Negative RIGHT BREAST: BI-RADS 1-Negative RECOMMENDATIONS: Mammogram as per most recent study and MRI as per high-risk protocol.
[2023-08-31] MEDS: gadobutroL 10 ML VIAL IVPUSH (10:35)
== END 2023-08-31 09:10 | disposition home or self-care (01) ==
LOC: HO.MRI 09:09
PROVIDERS: PCP Internal Medicine; Visit Provider Surgery
DX: Z91.89 Other specified personal risk factors, not elsewhere classified (principal)
CPT/HCPCS: 77049; A9585

== ENCOUNTER 2023-09-27 07:15 | Outpatient (AMB) | payer MEDICAID, SELFPAY ==
--- NOTE | 2023-09-27 08:00 | MHC.OFFVIS ---
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 No complaints. Last Pap/HPV was negative in 08/09 Last Mammogram was BI-RADS 2 in 01/10 last MRI was in 09/11 was BI-RADS 1 bilateral PFSH Medical History (Reviewed 07/19/23 @ 08:45 by Sascha Dave MD, FACS, [facility]) COVID-19 vaccine series completed BMI 34.0-34.9,adult BMI 39.0-39.9,adult Insomnia Seizures DJD (degenerative joint disease) Stress incontinence GERD (gastroesophageal reflux disease) Hyperlipidemia Sleep apnea with use of continuous positive airway pressure (CPAP) Non-insulin dependent type 2 diabetes mellitus Obesity Well woman exam Ovarian low malignant potential tumor Umbilical hernia Migraine Asthma Morbid obesity Pannus, abdominal Surgical History Hx laparoscopic cholecystectomy S/P laparoscopic sleeve gastrectomy Hx of tubal ligation History of hysterectomy History of bilateral breast reduction surgery Family History Father History of prostate cancer Maternal Aunt History of breast cancer Mother Hypertension Hyperlipidemia Brother Thyroid condition Hypertension Brother No problems noted. Son No problems noted. Daughter No problems noted. Social History Are you a primary respite care provider to a significant other at home: No Do you presently have visiting nurse or other home services: No Alcohol intake: never Comment: counts correct Patient Tobacco Use Status: Never used Tobacco service: No Female Reproductive History Menstrual Age of Menarche: 11 Review of Systems Const All systems reviewed & are unremarkable except as noted in HPI and below Card Reports as per HPI Resp Reports as per HPI GI Reports as per HPI and Reports no additional complaints Reports as per HPI Physical Exam Const General: cooperative, healthy appearing and comfortable Chest Chest palpation & inspection: normal inspection of the chest and normal palpation of entire chest wall Breast/axilla inspection: normal inspection of the breasts and normal inspection of the axillae Breast/axilla palpation: normal palpation of the breasts, normal palpation of the axillae and no axillary lymphadenopathy Resp Effort & Inspection: normal respiratory effort Auscultation: clear to auscultation bilaterally Percussion: percussion normal Cardio Palpation: normal PMI Rate: regular rate Rhythm: regular rhythm Heart sounds: no murmurs and no rubs Peripheral pulses: Peripheral pulses 2+ throughout GI Inspection: Yes normal to inspection Palpation (GI): Soft to palpation, nontender, no guarding, not rigid and No hepatosplenomegaly present Percussion: Yes normal to percussion Auscultation: normal bowel sounds Rectal Exam - Female: deferred General: Yes bladder normal to palpation External Female Exam: No lesion Speculum Exam - Vagina: normal appearance of the vagina, normal palpation, normal vaginal discharge and not erythematous Speculum Exam - Cervix: normal appearance of the cervix and normal palpation Bimanual exam- vagina & uterus: normal bimanual exam, normal palpation, uterine size normal, bladder normal to palpation, consistency normal and normal palpation Bimanual Exam- Adnexa, other: normal adnexae, no masses and no tenderness Assessment & Plan Assessment & Plan (1) Well woman exam: Code(s): Z01.419 - Encounter for gynecological examination (general) (routine) without abnormal findings Plan: Cotesting not indicated this year. Instructions given the patient to follow up with Dr. Adrian regarding her high-risk breast cancer status, appointment scheduled and to schedule her next screening Mammogram in 01/10. Counseled the patient about the recommended dietary allowance of 1000 mg of Calcium & 600 IU of vitamin D. The patient was instructed to perform monthly self-breast exams and to schedule an annual exam in a year; All questions answered and the patient verbalized understanding. Instructed the patient to schedule annual exam in a year Coding Level of Care Code Est Pt Prev Care 40-64y(05927) Diagnoses Well woman exam Z01.419
== END 2023-09-27 07:55 | disposition home or self-care (01) ==
PROVIDERS: PCP Internal Medicine; Visit Provider Obstetrics & Gynecology
DX: Z01.419 Encounter for gynecological examination (general) (routine) without abnormal findings (principal)
CPT/HCPCS: 99396

== ENCOUNTER → 2023-09-27 07:15 | Outpatient (BNVA) | payer MEDICAID, SELFPAY | PROVIDERS: PCP Internal Medicine; Visit Provider Obstetrics & Gynecology | DX: Z01.419 Encounter for gynecological examination (general) (routine) without abnormal findings (principal) | CPT/HCPCS: 99396 ==

== ENCOUNTER 2024-01-11 08:27 | Outpatient (AMB) | payer MEDICAID, SELFPAY ==
--- NOTE | 2024-01-11 08:30 | MHC.OFFVIS ---
Vital Signs 01/11/24 08:40 Height 5 ft 3 in Weight 167 lb 8 oz BMI 29.7 BP 122/57 L Blood Pressure Location Lt brachial Position Sitting Pulse 71 Intake Visit Reasons: 6 month breast examination Intake Note: Patient is seen in office for 6 month follow up visit, breast exam. 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 She denies a previous history of breast problems but did undergo a bilateral reduction mammoplasty in 2009 and tolerated the surgery well. Her calculated Tyrer-Cuzick model remaining lifetime risk of breast cancer was calculated at 34%, well above the 20% threshold for high risk protocol. Her most recent mammogram dated 12/22/2022 revealed no mammographic evidence of malignancy (BI-RADS 2). She is now due for her annual mammogram. Breast MRI performed on 08/31/2023 revealed no MR specific evidence of malignancy (BI-RADS 1 bilaterally). She reports 4 aunts with breast cancer. She had a pre malignant ovarian lesion subsequently underwent hysterectomy in October 2011. She has a prior history of a fibroadenoma but denies any pre malignant breast lesions. She denies a history of smoking, alcohol consumption, or radiation exposure. She is 1st at age 18, menarche at age 11. She underwent genetic testing on 11/18/2021 which revealed no clinically significant mutations and no mutations of unknown significance. An elevated risk for breast cancer due to her strong family history was identified once again with a Tyrer-Cuzick risk of breast cancer in her remaining life of 34%. Since her last visit she reports no breast related symptoms and generally feels well. She recently underwent a tonsillectomy and denies any current symptoms. [facility] Medical History COVID-19 vaccine series completed BMI 34.0-34.9,adult BMI 39.0-39.9,adult Insomnia Seizures DJD (degenerative joint disease) Stress incontinence GERD (gastroesophageal reflux disease) Hyperlipidemia Sleep apnea with use of continuous positive airway pressure (CPAP) Non-insulin dependent type 2 diabetes mellitus Obesity Well woman exam Ovarian low malignant potential tumor Umbilical hernia Migraine Asthma Morbid obesity Pannus, abdominal Surgical History Hx of tonsillectomy (12/22/23) Hx laparoscopic cholecystectomy S/P laparoscopic sleeve gastrectomy Hx of tubal ligation History of hysterectomy History of bilateral breast reduction surgery Family History Father History of prostate cancer Maternal Aunt History of breast cancer Mother Hypertension Hyperlipidemia Brother Thyroid condition Hypertension Brother No problems noted. Son No problems noted. Daughter No problems noted. Social History Are you a primary respiratory care program director to a significant other at home: No Do you presently have visiting nurse or other home services: No Alcohol intake: never Comment: counts correct Patient Tobacco Use Status: Never used Tobacco service: No Female Reproductive History Menstrual Age of Menarche: 11 Review of Systems Const Denies chills, Denies fever(s), Denies headache(s) and Denies poor appetite ENT Denies dizziness and Denies headache(s) Card Denies chest pain, Denies rapid heart rate, Denies palpitations and Denies slow heart rate Resp Denies chest congestion, Denies cough, Denies pain on inspiration and Denies wheezing GI Denies abdominal pain, Denies bloating, Denies change in stool character, Denies constipation, Reports dyspepsia, Denies diarrhea, Denies nausea, Denies vomiting and Denies hematemesis Denies nipple discharge and Reports urinary incontinence Musc Denies back pain, Denies arthralgias, Denies joint swelling and Denies numbness Skin/Breast Denies breast skin changes, Denies breast pain, Denies breast mass, Denies change in pigmentation, Denies nipple discharge, Denies erythema and Denies rash Neuro Denies dizziness, Denies headache(s), Denies numbness and Reports seizure-like activity Psych Denies anxiety and Denies depression Endo Denies palpitations Alejandro/Lymph Denies easy bleeding, Denies easy bruising and Denies lymphadenopathy Aller/Immun Denies wheezing Physical Exam Const General: cooperative, comfortable and well developed Nutritional Appearance: well nourished Orientation/consciousness: patient oriented x3 Eyes Sclerae: sclerae normal EOM: EOMs intact bilaterally Neck Neck: Yes normal visual inspection Chest Other: Bilateral breast reduction incisions Left breast: No skin change, no nipple retraction, no nipple discharge, no palpable mass, no enlarged lymph nodes. Right breast: No skin change, no nipple retraction, no nipple discharge, no palpable mass, no enlarged lymph nodes Resp Effort & Inspection: normal respiratory effort, no cough, no respiratory distress and no stridor Cardio Jugular venous distension: no JVD GI Inspection: Yes normal to inspection Palpation (GI): Soft to palpation, nontender, no guarding and not rigid Skin General skin exam: dry skin Rashes: no rashes Neuro General: patient oriented x3 and no focal motor deficits Extrem General: Yes full ROM and Yes no clubbing, cyanosis or edema Psych Appearance: grossly normal Assessment & Plan Assessment & Plan (1) At high risk for breast cancer: Code(s): Z91.89 - Other specified personal risk factors, not elsewhere classified Category: Medical Plan 43-year-old female patient presenting with a strong family history breast cancer presenting today for high risk breast cancer evaluation. Her most recent mammogram 12/22/2022 revealed no suspicious findings but her calculated Tyrer-Cuzick risk for breast cancer in her remaining life was calculated at 34%. Breast MRI dated 08/31/2023 revealed no MR specific evidence of malignancy (BI-RADS 1 bilaterally). Examination revealed no suspicious findings in either breast. An annual mammogram has been ordered today and will be scheduled soon. She should continue with twice yearly clinical breast examinations, yearly mammogram alternating with yearly breast MRI. She is welcome to call sooner for any new concerns. Orders: Orders MM screening mammo BI Today Z91.89 - Other specified personal risk factors, not elsewhere classified
[2024-01-11 08:40] VITALS: BP 122/57; PULSE 71; BMI 29.7
== END 2024-01-11 08:50 | disposition home or self-care (01) ==
PROVIDERS: PCP Internal Medicine; Referring Provider Internal Medicine; Visit Provider Surgery
DX: Z80.3 Family history of malignant neoplasm of breast (principal); Z91.89 Other specified personal risk factors, not elsewhere classified
CPT/HCPCS: 99213

== ENCOUNTER → 2024-01-11 08:27 | Outpatient (BNVA) | payer MEDICAID, SELFPAY | PROVIDERS: PCP Internal Medicine; Visit Provider Surgery | DX: Z80.3 Family history of malignant neoplasm of breast (principal); Z91.89 Other specified personal risk factors, not elsewhere classified | CPT/HCPCS: 99212 ==

== ENCOUNTER 2024-01-17 09:28 | Outpatient (REF) | payer MEDICAID, SELFPAY ==
--- NOTE | ~2024-01-17 | MM_ITS ---
EXAMINATION: MM SCREENING DIGITAL BREAST TOMOSYNTHESIS, BILATERAL CLINICAL INFORMATION: Screening. Asymptomatic. The patient is status post bilateral breast reduction. COMPARISON: Mammography: This study is compared with prior exams dating back to 2019. TECHNIQUE: Digital breast tomosynthesis is performed in both the craniocaudal and mediolateral oblique views along with computer-aided detection (CAD). Synthesized 2D images are generated from the tomosynthesis. FINDINGS: The breasts are almost entirely fatty (ACR BI-RADS breast composition Category a). There are no significant masses, abnormal calcifications, or other abnormalities. MM/MM tomosynthesis screening BI IMPRESSION: No mammographic evidence of malignancy. ASSESSMENT: BI-RADS BI-RADS 1 - Negative RECOMMENDATION: Routine annual mammography screening. 1 year F/U This examination should not preclude the clinical evaluation of a suspicious palpable abnormality. This patient's information was entered into a reminder system with a target due date for their next mammogram.
== END 2024-01-17 09:29 | disposition home or self-care (01) ==
LOC: HO.MAMMO 09:28
PROVIDERS: Absent Provider Surgery; PCP Internal Medicine; Visit Provider Internal Medicine
DX: Z12.31 Encounter for screening mammogram for malignant neoplasm of breast (principal)
CPT/HCPCS: 77063; 77067

== ENCOUNTER → 2024-01-17 10:15 | Outpatient (BNV) | payer MEDICAID, SELFPAY | PROVIDERS: Absent Provider Surgery; PCP Internal Medicine; Visit Provider Radiology Diagnostic Radiology | DX: Z12.31 Encounter for screening mammogram for malignant neoplasm of breast (principal) | CPT/HCPCS: 77063; 77067 ==

== ENCOUNTER 2024-01-31 11:45 | Outpatient (REF) | payer MEDICAID, SELFPAY ==
[2024-01-31 13:17] LABS: MANUAL DIFF FLAG NO
[2024-01-31 13:55] LABS: Basophils Percent Auto 0.9 % (0-2); Eosinophils Absolute Auto 0.1 X10*3/uL (0.0-0.4); Eosinophils Percent Auto 2.3 % (0-4); Hematocrit 45.4 % (37.0-47.0); Hemoglobin 14.6 g/dl (12.0-16.0); Imm Gran Abs Auto 0.01 X10*3/uL (0.00-0.03); Imm Gran Pct Auto 0.2 % (0.0-0.4); Lymphocytes Absolute Auto 2.1 X10*3/uL (1.2-4.9); Lymphocytes Percent Auto 49.8 % (20-40); Mean Corpuscular HGB Conc 32.2 g/dl (31.0-35.0); Mean Corpuscular Hemoglobin 29.3 pg (27.0-33.0); Mean Platelet Volume 10.4 fL (9.4-12.3); Monocytes Absolute Auto 0.4 X10*3/uL (0.1-1.2); Monocytes Percent Auto 8.4 % (2-11); Neutrophils Absolute Auto 1.7 x10*3/uL (2.0-8.3); Neutrophils Percent Auto 38.4 % (45-73); Platelet Count 295 X10*3/uL (160-400); Red Blood Count 4.99 X10*6/uL (4.20-5.50); Red Cell Distribution Width 13.5 % (11.0-16.0); White Blood Count 4.3 X10*3/uL (4.8-10.8)
[2024-01-31 14:11] LABS: Alanine Aminotransferase 49 U/L (0-31); Albumin Level 4.7 g/dL (3.5-5.0); Alkaline Phosphatase 88 U/L (39-117); Anion Gap 18 (12-20); Aspartate Amino Transferase 38 U/L (5-31); Bilirubin Direct 0.2 mg/dL (0.0-0.5); Bilirubin Total 0.8 mg/dL (0.0-1.0); Blood Urea Nitrogen 15 mg/dL (9-16); Calcium 10.6 mg/dL (8.4-10.2); Carbon Dioxide 27 mmol/L (22-29); Chloride 104 mmol/L (96-108); Cholesterol 265 mg/dL (<200); Estimated Glomerular Filt Rate > 60; Glucose Random 98 mg/dL (60-115); HDL Cholesterol 64 mg/dL (>40); LDL Cholesterol Calculated 178 mg/dL (<100); Potassium 3.9 mmol/L (3.3-5.1); Sodium 145 mmol/L (135-145); Total Protein 8.4 g/dL (6.5-8.0); Triglycerides 119 mg/dL (<150)
[2024-01-31 14:32] LABS: TSH reflex Free T4 1.09 uIU/mL (0.32-4.0); Vitamin D 25-OH Total 60.4 ng/mL (>30)
[2024-01-31 14:34] LABS: Vitamin B12 571 pg/mL (200-900)
== END 2024-01-31 11:46 | disposition home or self-care (01) ==
LOC: HO.CHCLDS 11:45
PROVIDERS: Visit Provider Internal Medicine
DX: Z00.00 Encounter for general adult medical examination without abnormal findings (principal)
CPT/HCPCS: 36415; 80048; 80061; 80076; 82306; 82607; 82746; 84443; 85025

== ENCOUNTER 2024-02-03 09:55 | Outpatient (AMB) | payer MEDICAID, SELFPAY ==
--- NOTE | 2024-02-03 09:40 | A.OFFVIS_ITS ---
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 Allergies Penicillins Allergy (Severe, Verified 01/11/24 08:35) Anaphylaxis aspirin Allergy (Intermediate, Verified 01/11/24 08:35) Rash seafood Allergy (Intermediate, Verified 01/11/24 08:35) Anaphylaxis, rash Medication List - Last Reconciled 02/03/24 by JO ANN Syed albuterol sulfate 90 mcg/actuation 2 puffs inhalation Q4-6H PRN atorvastatin 20 mg PO DAILY betamethasone dipropionate 0.05% 1 appl topical DAILY PRN bupropion HCl 1 tab PO DAILY buspirone 5 mg PO BID putfhunsxv-tlnmwrjftatzd-brcf 50-325-40 mg 1 cap PO Q4H PRN cholecalciferol (vitamin D3) 25 mcg PO DAILY citalopram 20 mg PO DAILY cyclobenzaprine 10 mg PO Q8H gabapentin 300 mg PO BEDTIME hydroxyzine HCl 50 mg PO BID oxybutynin chloride 5 mg PO DAILY oxycodone 5 mg PO Q4H PRN pantoprazole 40 mg PO DAILY sennosides (senna) 8.6 mg PO DAILY sumatriptan succinate (Imitrex) 100 mg PO Q2-4H PRN tizanidine 4 mg PO BID PRN 30 days topiramate 50 mg PO BID HPI Comments Details: This?is a?43?yo female who is s/p LSG 01/06/2022. Presents for 2 year post op visit. Weight at last visit on 08/09/2023 was 167 pounds with a BMI of 29.9, weight today is 165 pounds, representing a 2 pound weight loss with a BMI today of 29.2.? No complaints of nausea, emesis, abdominal pain or reflux, or constipation. Would like to lose another 15 lbs. Occasionally has episodes of dizziness/fatigue. Present meal plan includes: breakfast- 1 egg, 2 cookies, apple juice middle of day- salad with chicken- maybe 2-3oz evening- shake, 1 scoop takes Celebrate MVI Exercise routine includes: yoga, likes to walk 30-40 min daily [facility] Medical History COVID-19 vaccine series completed BMI 34.0-34.9,adult BMI 39.0-39.9,adult Insomnia Seizures DJD (degenerative joint disease) Stress incontinence GERD (gastroesophageal reflux disease) Hyperlipidemia Sleep apnea with use of continuous positive airway pressure (CPAP) Non-insulin dependent type 2 diabetes mellitus Obesity Well woman exam Ovarian low malignant potential tumor Umbilical hernia Migraine Asthma Morbid obesity Pannus, abdominal Surgical History Hx of tonsillectomy (12/22/23) Hx laparoscopic cholecystectomy S/P laparoscopic sleeve gastrectomy Hx of tubal ligation History of hysterectomy History of bilateral breast reduction surgery Family History Father History of prostate cancer Maternal Aunt History of breast cancer Mother Hypertension Hyperlipidemia Brother Thyroid condition Hypertension Brother No problems noted. Son No problems noted. Daughter No problems noted. Social History Are you a primary home health care provider to a significant other at home: No Do you presently have visiting nurse or other home services: No Alcohol intake: never Comment: counts correct Patient Tobacco Use Status: Never used Tobacco service: No Female Reproductive History Menstrual Age of Menarche: 11 Telehealth Telehealth Telehealth Platform: Telephone Location of provider rendering services: practice address Location of patient: address on file Patient Identification confirmed using: Name, : Yes Telehealth method: voice only Patient verbally consented to treatment: Yes Patient verbally consented to billing insurance company: Yes Patient informed of any privacy concerns related to visit: Yes Minutes spent on Phone/Video with Pt.: 25 Assessment & Plan Assessment & Plan (1) Overweight: Code(s): E66.3 - Overweight Category: Medical (2) S/P laparoscopic sleeve gastrectomy: Comment: 01/06/22 Code(s): Z98.84 - Bariatric surgery status Category: Surgical Plan Will adjust meal plan as pt seems to be undereating protein. breakfast- Celebrate bar lunch- 3oz protein, 3oz salad dinner- 2 scoops Celebrate 4:1 in 8oz unsweetened almond milk Encouraged pt to track calories with exercise, with goal 2000 bolivar burned per week. Remaining vitamin labs plus HgbA1C ordered. RTC 3 months. Pt has my contact info for any questions between appointments. Patient is overweight and is not considered stable at this time. I spent a total of 30 minutes reviewing/updating records, examining the patient and counseling the patient on weight management as detailed above. Orders: Orders Hemoglobin A1c Today Z98.84 - Bariatric surgery status Vitamin B1 Today Z98.84 - Bariatric surgery status Zinc Today Z98.84 - Bariatric surgery status Vitamin A Today Z98.84 - Bariatric surgery status
[2024-02-03 09:48] VITALS: BMI 29.2
== END 2024-02-03 10:03 | disposition home or self-care (01) ==
LOC: HO.HBS 09:55
PROVIDERS: PCP Internal Medicine; Visit Provider Physician Assistant Surgical
DX: E66.3 Overweight (principal); Z98.84 Bariatric surgery status
CPT/HCPCS: 99214

== ENCOUNTER → 2024-02-03 09:55 | Outpatient (BNVA) | payer MEDICAID, SELFPAY | PROVIDERS: PCP Internal Medicine; Visit Provider Physician Assistant Surgical ==

== ENCOUNTER 2024-02-09 09:07 | Outpatient (REF) | payer MEDICAID, SELFPAY ==
[2024-02-09 09:54] LABS: Estimated Average Glucose 117 mg/dL; Hemoglobin A1c % 5.7 % (<6.0)
[2024-02-12 04:43] LABS: Zinc 74 mcg/dL (60-130)
[2024-02-13 00:38] LABS: Vitamin A 51 mcg/dL (38-98)
[2024-02-14 12:33] LABS: Vitamin B1 11 nmol/L (8-30)
== END 2024-02-09 09:08 | disposition home or self-care (01) ==
LOC: HO.LAB 09:07
PROVIDERS: PCP Internal Medicine; Visit Provider Physician Assistant Surgical
DX: Z98.84 Bariatric surgery status (principal)
CPT/HCPCS: 36415; 83036; 84425; 84590; 84630

== ENCOUNTER 2024-03-08 00:27 | Emergency (ER) | payer MEDICAID, SELFPAY ==
[2024-03-08 00:40] VITALS: BP 141/86; PULSE 52; RESP 16; TEMP 36.5; O2SAT 99; BMI 30.8
[2024-03-08 00:58] LABS: Basophils Percent Auto 0.7 % (0-2); Eosinophils Absolute Auto 0.1 X10*3/uL (0.0-0.4); Eosinophils Percent Auto 1.5 % (0-4); Hematocrit 41.3 % (37.0-47.0); Hemoglobin 13.5 g/dl (12.0-16.0); Imm Gran Abs Auto 0.01 X10*3/uL (0.00-0.03); Imm Gran Pct Auto 0.2 % (0.0-0.4); Lymphocytes Absolute Auto 3.1 X10*3/uL (1.2-4.9); Lymphocytes Percent Auto 50.9 % (20-40); MANUAL DIFF FLAG NO; Mean Corpuscular HGB Conc 32.7 g/dl (31.0-35.0); Mean Corpuscular Hemoglobin 29.2 pg (27.0-33.0); Mean Corpuscular Volume 89.2 fL (80.0-98.0); Mean Platelet Volume 9.5 fL (9.4-12.3); Monocytes Absolute Auto 0.5 X10*3/uL (0.1-1.2); Monocytes Percent Auto 7.7 % (2-11); Neutrophils Absolute Auto 2.4 x10*3/uL (2.0-8.3); Platelet Count 302 X10*3/uL (160-400); Red Blood Count 4.63 X10*6/uL (4.20-5.50); Red Cell Distribution Width 13.1 % (11.0-16.0); White Blood Count 6.1 X10*3/uL (4.8-10.8)
[2024-03-08 01:00] LABS: Appearance Urine Cloudy; Color Urine Yellow; Glucose Urine UA Negative (Negative); Leukocyte Esterase Urine Large (3+) (Negative); Nitrite Urine Negative (Negative); PH 6.5 (5.0-9.0); UMIC TRIGGER UACC YES; Urine Blood Negative (Negative); Urine Ketones Negative (Negative); Urine Protein Negative (Neg-Trace)
[2024-03-08 01:06] LABS: Bacteria Urine 4+ (None Seen); Hyaline Casts Urine 0-2 /LPF (0-2); RBC Urine 0-2 /HPF (0-2); UACC Culture Trigger YES; WBC Urine >50 /HPF (0-5)
[2024-03-08 01:07] LABS: UPreg QC Valid YES; Urine Pregnancy NEGATIVE (NEGATIVE)
[2024-03-08 01:09] LABS: Anion Gap 11 (12-20); Blood Urea Nitrogen 15 mg/dL (9-16); Calcium 10.1 mg/dL (8.4-10.2); Carbon Dioxide 29 mmol/L (22-29); Chloride 109 mmol/L (96-108); Creatinine Clr Calc Pharmacy 82.8; Estimated Glomerular Filt Rate > 60; Glucose Random 93 mg/dL (60-115); Potassium 4.6 mmol/L (3.3-5.1); Sodium 144 mmol/L (135-145)
--- NOTE | 2024-03-08 01:34 | ED_ITS ---
HPI - Headache General Chief Complaint: Headache Stated Complaint: Headache Time Seen by Provider: 03/08/24 01:27 Source: patient Mode of arrival: ambulatory Limitations: no limitations History of Present Illness ED Provider: Dr. Nataliia Jackson HPI Narrative: Patient comes to the emergency room Complaining of a migraine headache. Patient states that prior to arrival she tried Fioricet without any significant relief. Patient states that she has had a migraine now for about 3 days. Patient states it has mostly in the posterior aspect of the head and that is how she usually gets migraines. Patient complaining of photophobia nausea and vomiting. Patient states that after vomiting she additionally started feeling better but now the headache got worse. Patient denies any chest pain or shortness of breath. Related Data Home Medications ?Medication ?Instructions ?Recorded ?Confirmed albuterol sulfate 90 mcg/actuation 2 puff inhalation Q4-6H PRN 07/11/20 02/03/24 aerosol inhaler Wheezing atorvastatin 20 mg tablet 20 mg PO DAILY 07/11/20 02/03/24 betamethasone dipropionate 0.05 % 1 applic topical DAILY PRN Rash 07/11/20 02/03/24 topical cream buspirone 10 mg tablet 5 mg PO BID 07/11/20 02/03/24 suqjzycvby-vfdpsaduqxgma-ttbfjekz 1 cap PO Q4H PRN Migraine Headache 07/11/20 02/03/24 50 mg-325 mg-40 mg capsule citalopram 20 mg tablet 20 mg PO DAILY 07/11/20 02/03/24 hydroxyzine HCl 50 mg tablet 50 mg PO BID 07/11/20 02/03/24 sumatriptan succinate 100 mg 100 mg PO Q2-4H PRN Migraine 07/11/20 02/03/24 tablet (Imitrex) Headache topiramate 50 mg tablet 50 mg PO BID 07/11/20 02/03/24 gabapentin 300 mg capsule 300 mg PO BEDTIME 08/27/21 02/03/24 oxybutynin chloride 5 mg tablet 5 mg PO DAILY 08/27/21 02/03/24 bupropion HCl 75 mg tablet 1 tab PO DAILY 01/06/22 02/03/24 Previous Rx's ?Medication ?Instructions ?Recorded tizanidine 4 mg tablet 4 mg PO BID PRN for muscle spasm 08/31/22 30 days #60 tabs cyclobenzaprine 10 mg tablet 10 mg PO Q8H #20 tabs 10/30/22 cholecalciferol (vitamin D3) 25 25 mcg PO DAILY #90 caps 02/24/23 mcg (1,000 unit) capsule sennosides 8.6 mg tablet (senna) 8.6 mg PO DAILY #90 tabs 06/08/23 pantoprazole 40 mg tablet,delayed 40 mg PO DAILY #30 tabs 06/18/23 release oxycodone 5 mg tablet 5 mg PO Q4H PRN pain #10 tabs 07/29/23 mvuuzxjwbi-eghmdpcupqutb-xjlepseh 1 cap PO Q4-6H PRN pain #10 caps 03/08/24 50 mg-300 mg-40 mg capsule (Fioricet) Allergies Allergy/AdvReac Type Severity Reaction Status Date / Time Penicillins Allergy Severe Anaphylaxis Verified 03/08/24 00:42 aspirin Allergy Intermediate Rash Verified 03/08/24 00:42 seafood Allergy Intermediate Anaphylaxis, Verified 03/08/24 00:42 rash Review of Systems 2 Review of Systems: Constitutional : No Weight loss, No Fever, No Chills, No Night Sweats, No Fatigue, No Malaise ENT/Mouth : No Hearing loss, No Ear Pain, No Nasal Congestion, No Sinus Pain, No Hoarseness, No sore throat, No Rhinorrhea, No Swallowing Difficulty Eyes: No Eye Pain, No Swelling, No Redness, No Foreign Body, No Discharge, No Vision Changes Cardiovascular : No Chest Pain, No SOB, No Dyspnea on Exertion, No Orthopnea, No Edema, No Palpitations Respiratory : No Cough, No Sputum, No Wheezing, No Smoke Exposure, No Dyspnea Gastrointestinal : No Nausea, No Vomiting, No Diarrhea, No Constipation, No abdominal Pain, No Hematochezia, No Melena Genitourinary : no irregular bleeding, No Dysuria, No Urinary Frequency, No Hematuria, No Urinary Incontinence, No Urgency, No Flank Pain, No Urinary Flow Changes, No Hesitancy Musculoskeletal : No joint pain, No Myalgias, No Joint Swelling Skin : No Skin Lesions, No rash Neuro : No Weakness, No Numbness, No Paresthesias, No Loss of Consciousness, No Dizziness, complaining of a migraine Headache Psych : No Anxiety/Panic, No Depression, No SI/HI/AH/VH, No Social Issues, Heme/Lymph: No Bruising, No Bleeding,No Lymphadenopathy Endocrine : No Polyuria, No Polydipsia, No Temperature Intolerance PMF Past Medical History Medical History COVID-19 vaccine series completed BMI 34.0-34.9,adult BMI 39.0-39.9,adult Insomnia Seizures DJD (degenerative joint disease) Stress incontinence GERD (gastroesophageal reflux disease) Hyperlipidemia Sleep apnea with use of continuous positive airway pressure (CPAP) Non-insulin dependent type 2 diabetes mellitus Obesity Well woman exam Ovarian low malignant potential tumor Umbilical hernia Migraine Asthma Morbid obesity Pannus, abdominal Surgical History Hx of tonsillectomy (12/22/23) Hx laparoscopic cholecystectomy S/P laparoscopic sleeve gastrectomy Hx of tubal ligation History of hysterectomy History of bilateral breast reduction surgery Family History Family History Father History of prostate cancer Maternal Aunt History of breast cancer Mother Hypertension Hyperlipidemia Brother Thyroid condition Hypertension Brother No problems noted. Son No problems noted. Daughter No problems noted. Social History Social History Are you a primary critical care clinical nurse specialist to a significant other at home: No Do you presently have visiting nurse or other home services: No Alcohol intake: never Comment: counts correct Patient Tobacco Use Status: Never used Tobacco Smoked in Last 30 Days: No Use of substances other than those prescribed or required for medical reasons: No Advance Directives: No Advance Directives Information Provided: Yes Do you have a plan to hurt others: No Plan Patient : No service: No Physical Exam 2 Vital Signs: Vital Signs: Last Vital Signs Temp 97.7 F 03/08/24 00:40 Pulse 52 03/08/24 00:40 Resp 16 03/08/24 00:40 BP 141/86 H 03/08/24 00:40 Pulse Ox 99 03/08/24 00:40 O2 Del Method Room Air 03/08/24 00:40 BMI result Body Mass Index 30.8 Const: Other: Appearance: Alert. Oriented X3. Looks uncomfortable Eyes: Pupils equal, round and reactive to light. Patient has photophobia ENT: Pharynx normal. Neck: Normal inspection. Neck supple. No lymph nodes noted. No crepitus CVS: Normal heart rate and rhythm. Pulses normal. Normal S1 and S2 Respiratory: No respiratory distress. Breath sounds normal. No Wheezing. No rales Abdomen: Soft and nontender. No rigidity. No distention. Skin: Skin warm and dry. Normal skin color. Normal skin turgor. Extremities: No lower extremity edema. No Lacerations. No Rash Neuro: Oriented X 3. No motor deficit. No sensory deficit. Moving all extremities. No slurred speech. CN 2 through 12 grossly intact Psych: calm, cooperative, normal affect Course Course Course Narrative: -patient has a migraine, receiving IV fluids, diphenhydramine, Benadryl and morphine. Patient has a gastric sleeve surgery, we will avoid NSAIDs Medications Administered Discontinued Medications Generic Name Dose Route Start Last Admin Trade Name Freq PRN Reason Stop Dose Admin Diphenhydramine HCl 25 mg 03/08/24 01:33 03/08/24 01:56 Diphenhydramine Hcl 50 Mg/Ml Vial IVPUSH 03/08/24 01:34 25 mg ONCE ONE Administration Sodium Chloride 1,000 mls @ 999 mls/hr 03/08/24 01:33 03/08/24 01:56 Ns IVCONT 03/08/24 02:33 999 mls/hr .Q1H1M ONE Administration Metoclopramide HCl 10 mg 03/08/24 01:33 03/08/24 01:55 Metoclopramide Hcl 10 Mg/2 Ml Vial IVPUSH 03/08/24 01:34 10 mg ONCE ONE Administration Morphine Sulfate 4 mg 03/08/24 01:33 03/08/24 01:55 Morphine Sulfate 4 Mg/Ml Cartridge IVPUSH 03/08/24 01:34 4 mg ONCE ONE Administration Protocol Medical Decision Making Medical Decision Making MDM Narrative: -my interpretation of labs: Normal hematology and chemistry. The urinalysis looks positive. However, patient has no UTI symptoms and there is a large amount of squamous epithelial cells. At this time, no indication for antibiotics. -for the above-mentioned treatment, patient states that she feels much better, headache nearly resolved Differential Diagnosis Differential Diagnoses: The differential diagnosis associated with the presentation includes (Tension headache, migraine headache) Lab Data [facility] Lab Attestation statement: I reviewed the patient's lab results. 03/08/24 00:50 03/08/24 00:50 Labs: Lab Results 03/08/24 03/08/24 Range/Units 00:50 00:52 WBC 6.1 (4.8-10.8) X10*3/uL RBC 4.63 (4.20-5.50) X10*6/uL Hgb 13.5 (12.0-16.0) g/dl Hct 41.3 (37.0-47.0) % MCV 89.2 (80.0-98.0) fL MCH 29.2 (27.0-33.0) pg MCHC 32.7 (31.0-35.0) g/dl RDW 13.1 (11.0-16.0) % Plt Count 302 (160-400) X10*3/uL MPV 9.5 (9.4-12.3) fL Immature Gran % (Auto) 0.2 (0.0-0.4) % Neut % (Auto) 39.0 L (45-73) % Lymph % (Auto) 50.9 H (20-40) % [place] % (Auto) 7.7 (2-11) % Eos % (Auto) 1.5 (0-4) % Baso % (Auto) 0.7 (0-2) % Lymph # (Auto) 3.1 (1.2-4.9) X10*3/uL [place] # (Auto) 0.5 (0.1-1.2) X10*3/uL Eos # (Auto) 0.1 (0.0-0.4) X10*3/uL Baso # (Auto) 0.0 (0.0-0.2) X10*3/uL Abs Immat Gran (auto) 0.01 (0.00-0.03) X10*3/uL Absolute Neuts (auto) 2.4 (2.0-8.3) x10*3/uL Absolute Nucleated RBC 0.000 (0.0-0.012) X10*3/uL Nucleated RBC % (auto) 0.0 (0.0-0.2) /100WBC Sodium 144 (135-145) mmol/L Potassium 4.6 (3.3-5.1) mmol/L Chloride 109 H (96-108) mmol/L Carbon Dioxide 29 (22-29) mmol/L Anion Gap 11 L (12-20) BUN 15 (9-16) mg/dL Creatinine 0.87 (0.5-1.4) mg/dL Estim Creat Clear Calc 82.8 Estimated GFR > 60 Random Glucose 93 (60-115) mg/dL Calcium 10.1 (8.4-10.2) mg/dL Urine Color Yellow Urine Appearance Cloudy Urine pH 6.5 (5.0-9.0) Ur Specific [place] 1.020 (1.005-1.025) Urine Protein Negative (Neg-Trace) mg/dL Urine Glucose (UA) Negative (Negative) mg/dL Urine Ketones Negative (Negative) mg/dL Urine Blood Negative (Negative) Urine Nitrite Negative (Negative) Ur Leukocyte Esterase Large (3+) H (Negative) Urine RBC 0-2 (0-2) /HPF Urine WBC >50 H (0-5) /HPF Ur Squamous Epith Cells 11-20 (0-2) /HPF Urine Bacteria 4+ (None Seen) Hyaline Casts 0-2 (0-2) /LPF Urine Test NEGATIVE (NEGATIVE) Discharge Plan Discharge Clinical Impression: Headache, migraine Patient Disposition: Home, Self-Care Instructions: Migraine Headache (ED) Additional Instructions: Please follow-up with your primary care physician tomorrow. If you have any worsening or new symptoms, please return to the emergency room or call 911 Prescriptions: New hainxliash-adeheqhswfbpn-ckdf [Fioricet] 50-300-40 mg capsule 1 cap PO Q4-6H PRN (Reason: pain) Qty: 10 0RF No Action cholecalciferol (vitamin D3) 25 mcg (1,000 unit) capsule 25 mcg PO DAILY Qty: 90 3RF sennosides [senna] 8.6 mg tablet 8.6 mg PO DAILY Qty: 90 0RF bupropion HCl 75 mg tablet 1 tab PO DAILY cyclobenzaprine 10 mg tablet 10 mg PO Q8H Qty: 20 0RF oxycodone 5 mg tablet 5 mg PO Q4H PRN (Reason: pain) Qty: 10 0RF Rx Instructions: Partial Fill upon patient request. topiramate 50 mg tablet 50 mg PO BID atorvastatin 20 mg tablet 20 mg PO DAILY citalopram 20 mg tablet 20 mg PO DAILY sumatriptan succinate [Imitrex] 100 mg tablet 100 mg PO Q2-4H PRN (Reason: Migraine Headache) Rx Instructions: do not exceed 2 doses per 24 hrs xdiatejrbt-wujauoifiomcu-hhuz 50-325-40 mg capsule 1 cap PO Q4H PRN (Reason: Migraine Headache) buspirone 10 mg tablet 5 mg PO BID albuterol sulfate 90 mcg/actuation HFA aerosol inhaler 2 puff inhalation Q4-6H PRN (Reason: Wheezing) hydroxyzine HCl 50 mg tablet 50 mg PO BID betamethasone dipropionate 0.05 % cream 1 applic topical DAILY PRN (Reason: Rash) oxybutynin chloride 5 mg tablet 5 mg PO DAILY gabapentin 300 mg capsule 300 mg PO BEDTIME tizanidine 4 mg tablet 4 mg PO BID PRN (Reason: for muscle spasm) 30 Days Qty: 60 1RF pantoprazole 40 mg tablet,delayed release (DR/EC) 40 mg PO DAILY Qty: 30 2RF Print Language: Dominican
[2024-03-08] MEDS: Morphine Sulfate 4 MG/ML CARTRIDGE IVPUSH (01:55)
[2024-03-08] MEDS: Metoclopramide HCl 10 MG/2 ML VIAL IVPUSH (01:55)
[2024-03-08] MEDS: diphenhydrAMINE HCL 50 MG/ML VIAL 25 MG IVPUSH (01:56)
[2024-03-08] MEDS: 0.9 % Sodium Chloride 1,000 ML 999 ML IVCONT (01:56)
[2024-03-08 02:57] VITALS: BP 138/88; PULSE 60; RESP 16; TEMP 36.6; O2SAT 99
== END 2024-03-08 02:58 | disposition home or self-care (01) ==
PROVIDERS: Emergency Provider Emergency Medicine; PCP Internal Medicine
DX: G43.909 Migraine, unspecified, not intractable, without status migrainosus (principal); H53.143 Visual discomfort, bilateral; R11.2 Nausea with vomiting, unspecified; Z79.899 Other long term (current) drug therapy
CPT/HCPCS: 36415; 80048; 81001; 81003; 81025; 85025; 87086; 96361; 96374; 96375; 99284; 99285; J1200; J2270; J2765

== ENCOUNTER 2024-04-27 11:39 | Outpatient (REF) | payer MEDICAID, SELFPAY ==
--- NOTE | ~2024-04-27 | XR_ITS ---
EXAMINATION: XR SHOULDER, LEFT CLINICAL INFORMATION: Left shoulder pain for 3 weeks COMPARISON: None available. TECHNIQUE: AP external rotation, Grashey, scapular Y, and axillary views of the left shoulder. FINDINGS: The bones and soft tissues are normal. No fracture. Glenohumeral and acromioclavicular alignment is anatomic with normal joint space. No abnormal soft tissue calcifications. XR/XR shoulder LT min 2V IMPRESSION: Normal left shoulder.
== END 2024-04-27 11:40 | disposition home or self-care (01) ==
LOC: HO.HHCX 11:39
PROVIDERS: Visit Provider Internal Medicine
DX: M25.512 Pain in left shoulder (principal)
CPT/HCPCS: 73030

== ENCOUNTER 2024-05-15 19:34 | Emergency (ER) | payer MEDICAID, SELFPAY ==
[2024-05-15 19:45] VITALS: BP 113/75; PULSE 97; RESP 18; TEMP 36.5; O2SAT 97; BMI 30.1
--- NOTE | 2024-05-15 19:47 | ED_ITS ---
HPI - General Adult General Chief complaint: Upper Respiratory Symptoms Stated complaint: fever vomiting coughing,diarrhea Time Seen by Provider: 05/16/24 00:16 Source: patient Mode of arrival: ambulatory Limitations: no limitations History of Present Illness HPI narrative: Patient is a 43-year-old female who presents emergency department for evaluation of sore throat, subjective fever, body aches, nausea, single episode of bilious vomiting, and a single episode of soft stools. She states that she took a COVID-19 test which was positive and she did not believe this. This is her 1st time testing positive for COVID-19. She wanted to come to the emergency department to make sure that this was ?really positive?. She reports using Tylenol and Robitussin once today with minimal improvement. Related Data Home Medications ?Medication ?Instructions ?Recorded ?Confirmed albuterol sulfate 90 mcg/actuation 2 puff inhalation Q4-6H PRN 07/11/20 02/03/24 aerosol inhaler Wheezing atorvastatin 20 mg tablet 20 mg PO DAILY 07/11/20 02/03/24 betamethasone dipropionate 0.05 % 1 applic topical DAILY PRN Rash 07/11/20 02/03/24 topical cream buspirone 10 mg tablet 5 mg PO BID 07/11/20 02/03/24 mfebbyancf-xfhpmvglgsjmf-vlwbxaiy 1 cap PO Q4H PRN Migraine Headache 07/11/20 02/03/24 50 mg-325 mg-40 mg capsule citalopram 20 mg tablet 20 mg PO DAILY 07/11/20 02/03/24 hydroxyzine HCl 50 mg tablet 50 mg PO BID 07/11/20 02/03/24 sumatriptan succinate 100 mg 100 mg PO Q2-4H PRN Migraine 07/11/20 02/03/24 tablet (Imitrex) Headache topiramate 50 mg tablet 50 mg PO BID 07/11/20 02/03/24 gabapentin 300 mg capsule 300 mg PO BEDTIME 08/27/21 02/03/24 oxybutynin chloride 5 mg tablet 5 mg PO DAILY 08/27/21 02/03/24 bupropion HCl 75 mg tablet 1 tab PO DAILY 01/06/22 02/03/24 Previous Rx's ?Medication ?Instructions ?Recorded tizanidine 4 mg tablet 4 mg PO BID PRN for muscle spasm 08/31/22 30 days #60 tabs cyclobenzaprine 10 mg tablet 10 mg PO Q8H #20 tabs 10/30/22 sennosides 8.6 mg tablet (senna) 8.6 mg PO DAILY #90 tabs 06/08/23 pantoprazole 40 mg tablet,delayed 40 mg PO DAILY #30 tabs 06/18/23 release oxycodone 5 mg tablet 5 mg PO Q4H PRN pain #10 tabs 07/29/23 njzabphivd-varhkpfjoazcs-dvxqssmy 1 cap PO Q4-6H PRN pain #10 caps 03/08/24 50 mg-300 mg-40 mg capsule (Fioricet) cholecalciferol (vitamin D3) 25 25 mcg PO DAILY #90 caps 04/05/24 mcg (1,000 unit) capsule Allergies Allergy/AdvReac Type Severity Reaction Status Date / Time Penicillins Allergy Severe Anaphylaxis Verified 05/15/24 19:48 aspirin Allergy Intermediate Rash Verified 05/15/24 19:48 seafood Allergy Intermediate Anaphylaxis, Verified 05/15/24 19:48 rash Review of Systems Review of Systems: Yes all other systems are reviewed and are negative [facility] Past Medical History Attestation statement: The following information was validated with the patient. Source: old records reviewed Medical History COVID-19 vaccine series completed BMI 34.0-34.9,adult BMI 39.0-39.9,adult Insomnia Seizures DJD (degenerative joint disease) Stress incontinence GERD (gastroesophageal reflux disease) Hyperlipidemia Sleep apnea with use of continuous positive airway pressure (CPAP) Non-insulin dependent type 2 diabetes mellitus Obesity Well woman exam Ovarian low malignant potential tumor Umbilical hernia Migraine Asthma Morbid obesity Pannus, abdominal Surgical History Hx of tonsillectomy (12/22/23) Hx laparoscopic cholecystectomy S/P laparoscopic sleeve gastrectomy Hx of tubal ligation History of hysterectomy History of bilateral breast reduction surgery Family History Family History Father History of prostate cancer Maternal Aunt History of breast cancer Mother Hypertension Hyperlipidemia Brother Thyroid condition Hypertension Brother No problems noted. Son No problems noted. Daughter No problems noted. Social History Social History Are you a primary district manager primary care sales to a significant other at home: No Do you presently have visiting nurse or other home services: No Alcohol intake: never Comment: counts correct Patient Tobacco Use Status: Never used Tobacco Advance Directives: No Advance Directives Information Provided: No Do you have a plan to hurt others: No Plan service: No Physical Exam ED Vital Signs: Vital Signs - 24 hr 05/15/24 19:45 05/16/24 00:53 05/16/24 01:07 Temperature 97.7 F 98.7 F 98.7 F Pulse Rate 97 95 95 Respiratory Rate 18 16 16 Blood Pressure 113/75 133/86 133/86 Pulse Oximetry 97 98 98 Oxygen Delivery Method Room Air Room Air Room Air BMI result Body Mass Index 30.1 Appearance: Alert.?Oriented to person, place and time. No acute distress.?Normal affect. Eyes: Pupils equal, round and reactive to light.? ENT: Pharynx normal.??Uvula midline. No trismus. No drooling Neck: Normal inspection.? Neck supple.? No cervical adenopathy? CVS: Heart sounds normal. Normal heart rate and rhythm.? Pulses normal.?? Respiratory: No respiratory distress.? Lung sounds clear to auscultation bilaterally?? Abdomen: Soft and non-tender. Normoactive bowel sounds. Skin: Skin warm and dry.? Normal skin color.? ? Extremities: No lower extremity edema.? No calf ttp? Neuro: Moves all extremities spontaneously. Sensation intact bilaterally. Ambulates with normal steady gait. Course Course Course Narrative: RME performed by Zahra Jules PA-C. Patient is a 43 year old assigned female at presenting to the emergency department with nausea, vomiting, sore throat, and body aches. Patient states that starting yesterday she began to have nausea, vomiting, fever, and body aches with a sore throat. Patient states that she took a home COVID-19 test and it was positive. Detailed physical exam and review of systems are deferred to the manager alliance. Swabs ordered. Patient placed back in the waiting room pending room availability and results. Medications Administered Discontinued Medications Generic Name Dose Route Start Last Admin Trade Name Freq PRN Reason Stop Dose Admin Ondansetron HCl 4 mg 05/15/24 19:48 05/15/24 19:51 Ondansetron Odt 4 Mg TabMicheal MOON 05/15/24 19:49 4 mg ONCE ONE Administration Medical Decision Making Medical Decision Making MDM Narrative: Patient is a 43-year-old female who presents emergency department for evaluation of viral symptoms with positive COVID-19 testing. Overall she appears well, nontoxic, afebrile. She is in no respiratory distress. Her abdominal examination is benign. Strep a testing is negative. No evidence of RPA/SUSPENSION CORD TIER. Unlikely PNA. We discussed conservative treatment, worrisome signs and symptoms that would warrant re-evaluation in the emergency department. All questions answered. Stable for discharge. Differential Diagnosis Differential Diagnoses: The differential diagnosis associated with the pres entation includes (See narrative above) Lab Data [facility] Lab Attestation statement: I reviewed the patient's lab results. (See narrative above) Labs: Lab Results 05/15/24 Range/Units 19:57 Influenza Type A (PCR) NEGATIVE (Negative) Influenza Type B (PCR) NEGATIVE (Negative) RSV RNA Qual (PCR) NEGATIVE (Negative) SARS-CoV-2 RNA (RT-PCR) POSITIVE A (Negative) S. pyogenes GrpA ROSEANNE Negative (Negative) Independent Historian Clinical information obtained from an independent historian. History obtained from or confirmed by: Spouse External Record Review External record reviewed: Outpatient record Tests considered The following testing was considered but not selected: CXR deferred, unlikely pneumonia Prescription Management I considered prescription management with: Antiviral (reviewed Paxlovid, declined) Discharge Plan Discharge Clinical Impression: COVID-19 Patient Disposition: Home, Self-Care Instructions: COVID-19 (Coronavirus Disease 2019) (ED) Additional Instructions: Be sure to rest, stay well hydrated drinking plenty of fluids, eat small frequent meals. Tylenol/ibuprofen can be used as needed for fever/pain. Yasw-umg-wxhskdw cold medications may be helpful as well for symptoms. Saline nasal spray, humidifier may be helpful for nasal congestion. You may return to the emergency department with any new or worsening symptoms or concerns. Follow-up with your primary care provider as needed. Prescriptions: No Action sennosides [senna] 8.6 mg tablet 8.6 mg PO DAILY Qty: 90 0RF cholecalciferol (vitamin D3) 25 mcg (1,000 unit) capsule 25 mcg PO DAILY Qty: 90 3RF bupropion HCl 75 mg tablet 1 tab PO DAILY cyclobenzaprine 10 mg tablet 10 mg PO Q8H Qty: 20 0RF oxycodone 5 mg tablet 5 mg PO Q4H PRN (Reason: pain) Qty: 10 0RF Rx Instructions: Partial Fill upon patient request. kcbegajfll-umuiysvdafxxf-ihpt [Fioricet] 50-300-40 mg capsule 1 cap PO Q4-6H PRN (Reason: pain) Qty: 10 0RF topiramate 50 mg tablet 50 mg PO BID atorvastatin 20 mg tablet 20 mg PO DAILY citalopram 20 mg tablet 20 mg PO DAILY sumatriptan succinate [Imitrex] 100 mg tablet 100 mg PO Q2-4H PRN (Reason: Migraine Headache) Rx Instructions: do not exceed 2 doses per 24 hrs cjkaskpvwu-hjxpsygcekwqr-wklb 50-325-40 mg capsule 1 cap PO Q4H PRN (Reason: Migraine Headache) buspirone 10 mg tablet 5 mg PO BID albuterol sulfate 90 mcg/actuation HFA aerosol inhaler 2 puff inhalation Q4-6H PRN (Reason: Wheezing) hydroxyzine HCl 50 mg tablet 50 mg PO BID betamethasone dipropionate 0.05 % cream 1 applic topical DAILY PRN (Reason: Rash) oxybutynin chloride 5 mg tablet 5 mg PO DAILY gabapentin 300 mg capsule 300 mg PO BEDTIME tizanidine 4 mg tablet 4 mg PO BID PRN (Reason: for muscle spasm) 30 Days Qty: 60 1RF pantoprazole 40 mg tablet,delayed release (DR/EC) 40 mg PO DAILY Qty: 30 2RF Referrals: Simona Ribeiro MD [Primary Care Provider] - Interventions: ED Discharge Assessment Last Done: 05/16/24 01:07 Discharge Date/Time: 05/16/24 01:07 Print Language: Persian
[2024-05-15] MEDS: Ondansetron ODT 4 MG TAB.RAPDIS TRANSLINGU (19:51)
--- OUTSIDE RECORDS SUMMARY | 2024-05-15 20:00 | XMS_ITS | Continuity of Care Document ---
Author Organization [facility] Address [address] [place] [id number]- Care Team Providers Care Content Architect Name Role Phone Zhane Gaston MD, Simona Marte [facility]ici [id number] Date[facility] 12/01/[facility] - 03/30/20 [facility] [address] [address]- [facility] Attending Physician: Fanny Kirk Admitting Physician: Fanny Kirk Allergies, Adverse Reactions, Alerts Substance Reaction Severity Status penicillin Active aspirin Active Seafood Active Medications acetaminophen-butalbital 300 mg-50 mg oral capsule By Mouth, Every 4 hours, PRN Migraine Headache, 0 Refills, Maintenance Start Date: 03/05/20 Status: Ordered albuterol CFC free 90 mcg/inh inhalation aerosol 2, puffs, Inhalation, 4 times a day, # 1 each, Refills 3, Tot. Refills 3, Maintenance, 08/22/18 8:32:57 EST, Route to Pharmacy Electronically, [id number], [facility]/pharmacy #[id number] Start Date: 08/22/18 Status: Ordered ALPRAZolam 0.5 mg oral tablet 0.5 mg, 1, tablet, By Mouth, Daily, PRN, Refills 0, Maintenance, as needed for anxiety Start Date: 03/05/20 Status: Ordered AutoCPAP 8-20cm H2O with heated humidification AutoCPAP 8-20cm H2O with heated humidification, See Instructions, # 1 each, Refills 0, Tot. Refills0, Maintenance, use during sleep and naps from, 10/20/19 13:47:00 EST, Compound Start Date: 10/20/19 Status: Ordered buPROPion 75 mg oral tablet 1 tablet = 75 mg, By Mouth, Daily, 0 Refills, Maintenance Start Date: 03/05/20 Status: Ordered busPIRone 10 mg oral tablet 10 mg, 1, tablet, By Mouth, 2 times a day, Refills 0, Maintenance Start Date: 03/05/20 Status: Ordered citalopram 10 mg oral tablet 10 mg, 1, tablet, By Mouth, Daily, Refills 0, Maintenance Start Date: 03/05/20 Status: Ordered Flonase 50 mcg/inh nasal spray 1 sprays, Nares, Both, Daily, For first week use twice daily then decrease to once daily, # 1 each,6 Refills, Maintenance, 10/13/18 11:08:48 EST, Directions in english please, 1 sprays Nares, Both Daily,Instr:For first week use twice daily then decre... Start Date: 10/13/18 Status: Ordered Flovent Diskus 100 mcg/inh inhalation powder Inhalation, prn, 0 Refills, Maintenance, 08/22/18 7:58:40 EST Start Date: 08/22/18 Status: Ordered Flovent HFA 220 mcg/inh inhalation aerosol Inhalation, prn, 0 Refills, Maintenance, 08/22/18 7:58:16 EST Start Date: 08/22/18 Status: Ordered Montelukast = 10 mg, By Mouth, Daily, 0 Refills, Maintenance, 08/22/18 8:00:03 EST Start Date: 08/22/18 Status: Ordered montelukast 10 mg oral tablet 10 mg, 1, tablet, By Mouth, Daily, # 30 tablet, Refills 3, Tot. Refills 3, Maintenance, 08/22/18 8:35:39 EST, Route to Pharmacy Electronically, [id number], [facility]/pharmacy #[id number] Start Date: 08/22/18 Status: Ordered ProAir HFA 90 mcg/inh inhalation aerosol with adapter 2, puffs, Inhalation, 3 times a day, Refills 0, Maintenance, 08/22/18 7:57:15 EST Start Date: 08/22/18 Status: Ordered SUMAtriptan 100 mg oral tablet 1 tablet = 100 mg, By Mouth, Daily, PRN for migraine headache, may repeat dose after 2 hours up to a maximum of 2, # 9 tablet, 0 Refills, Maintenance, Tablet Start Date: 03/05/20 Status: Ordered Symbicort 160mcg/4.5mcg Inhaler 2, puffs, Inhalation, 2 times a day, use with spacer chamber rinse mouth and throat after use, # 1 each, Refills 3, Tot. Refills 3, Maintenance, 08/22/18 8:31:13 EST, Route to Pharmacy Electronically, [id number], [facility] Start Date: 08/22/18 Status: Ordered topiramate 50 mg oral tablet 1 tablet = 50 mg, By Mouth, Daily, 0 Refills, Maintenance Start Date: 03/05/20 Status: Ordered Problem List Condition Effective Dates Status Health Status Inform ant Asthma(Confirmed) Active Chronic back pain(Confirmed) Active Depression(Confirmed) Active Hyperlipemia(Confirmed) Active Kidney stone(Confirmed) Active Migraine headache(Confirmed) Active Obstructive sleep apnea(Confirmed) Active Primary insomnia(Confirmed) Active Vitamin D deficiency(Confirmed) Active Social History Social History Type Response Smoking Status Never (less than 100 in lifetime); Tobacco user in household: No;Never entered on: 08/22/18 Sex
--- OUTSIDE RECORDS SUMMARY | 2024-05-15 20:00 | XMS_ITS | Continuity of Care Document ---
Author Organization [facility] Address Unknown Care Team Providers Care Software Engineering Manager Name Role Phone Zhane Gaston MD, Simona Marte Primary Care Physici an [place] [facility] [place] 08[place]21 [facility] Attending Physician: Librado White Admitting Physician: Librado White Referring Physician: Librado White Allergies, Adverse Reactions, Alerts Substance Reaction Severity [...] 08/22/18 8:32:57 EST, Route to Pharmacy Electronically, [id number], [facility]/pharmacy #[id number] Start Date: 08/22/18 Status: Ordered ALPRAZolam 0.5 [...] Mouth, Daily, 0 Refills, Maintenance Start Date: 6/16/20 Status: Ordered busPIRone 10 mg oral tablet [...] Refills, Maintenance, 10/13/18 11:08:48 EST, Directions in bangladeshi please, 1 sprays Nares, Both Daily,Instr:For first week use twice daily then decre... Start Date: 10/13/18 Status: Ordered Flovent Diskus 100 mcg/inh inhalation powder Inhalation, prn, 0 Refills, Maintenance, 08/22/18 7:58:40 EST Start Date: 08/22/18 Status: Ordered Flovent HFA 220 mcg/inh inhalation aerosol Inhalation, prn, 0 Refills, Maintenance, 08/22/18 7:58:16 EST Start Date: 08/22/18 Status: Ordered modafinil 200 mg oral tablet 1 tablet = 200 mg, By Mouth, Daily in AM, bangladeshi, # 30 tablet, 3 Refills, Maintenance, 01/13/21 12:06:00 EDT, [facility]/pharmacy #[id number], Partial fill upon patient request if the prescription is for a schedule II opioid drug., 160, cm, 06/27/20 10:44:00 EDT,... Start Date: 01/13/21 Status: Ordered Montelukast = 10 mg, By Mouth, Daily, 0 Refills, Maintenance, 08/22/18 8:00:03 EST Start Date: 08/22/18 Status: Ordered montelukast 10 mg oral tablet 10 mg, 1, tablet, By Mouth, Daily, # 30 tablet, Refills 3, Tot. Refills 3, Maintenance, 08/22/18 8:35:39 EST, Route to Pharmacy Electronically, [id number], [facility]/pharmacy #[id number] Start Date: 08/22/18 Status: Ordered oxybutynin 10 mg/24 hr oral tablet, extended release 1 tablet = 10 mg, By Mouth, Daily, # 30 tablet, 5 Refills, Maintenance, 08/13/21 10:28:00 EST, ER Tablet, [facility]-, Partial fill upon patient request if the prescription is fora schedule II opioid drug., 160, cm, 08/13/21 10:22... Start Date: 08/13/21 Status: Ordered ProAir HFA 90 mcg/inh inhalation aerosol with adapter 2, puffs, Inhalation, 3 times a day, Refills 0, Maintenance, 08/22/18 7:57:15 EST Start Date: 08/22/18 Status: Ordered rizatriptan 10 mg oral tablet 1 tablet = 10 mg, By Mouth, Daily, PRN for migraine headache, Take at first sign of migraine. May repeat dose once in 2 hours. No more than 2 doses in 24 hrs and 3 days of use per week., # 12 tablet,0 Refills, Maintenance, 07/02/21 17:07:00 EDT, Tabl... Start Date: 07/02/21 Status: Ordered Symbicort 160mcg/4.5mcg Inhaler 2, puffs, Inhalation, 2 times a day, use with spacer chamber rinse mouth and throat after use, # 1 each, Refills 3, Tot. Refills 3, Maintenance, 08/22/18 8:31:13 EST, Route to Pharmacy Electronically, [id number], [facility] Start Date: 08/22/18 Status: Ordered topiramate 50 mg oral tablet 1 tablet = 50 mg, By Mouth, Daily, 0 Refills, Maintenance Start Date: 03/05/20 Status: Ordered Problem List Condition Effective Dates Status Health Status Inform ant Allergic dermatitis(Confirmed) Active Asthma(Confirmed) Active Chronic back pain(Confirmed) Active Depression(Confirmed) Active Dizziness(Confirmed) Active Hyperlipemia(Confirmed) Active Urinary frequency(Confirmed) Active Kidney stone(Confirmed) Active Migraine headache(Confirmed) Active Obese class II(Confirmed) Active Obstructive sleep apnea(Confirmed) Active Prediabetes(Confirmed) Active Primary insomnia(Confirmed) Active Rosacea(Confirmed) Active Vitamin D deficiency(Confirmed) Active Social History Social History Type Response Smoking Status Never (less than 100 in lifetime); Tobacco user in household: No;Never entered on: 08/22/18 Sex
--- OUTSIDE RECORDS SUMMARY | 2024-05-15 20:00 | XMS_ITS | Continuity of Care Document ---
Author Organization [facility] Address [address] [place] [address]- Care Team Providers Care Cell Inspector Name Role Phone Zhane Gaston MD, Simona Marte Primary Care Physici an En[place] [facility] Date(s): 02/18/22 - 03/20/22 [facility] [address] [address]- Allergies, Adverse Reactions, Alerts Substance Reaction Severity [...] 08/22/18 8:32:57 EST, Route to Pharmacy Electronically, [id number], [facility]/pharmacy #[id number] Start Date: 08/22/18 Status: [...] Refills, Maintenance, 10/13/18 11:08:48 EST, Directions in kittitian please, 1 sprays Nares, Both Daily,Instr:For first [...] 200 mg, By Mouth, Daily in AM, kittitian, # 30 tablet, 3 Refills, Maintenance, 01/13/21 12:06:00 EDT, [facility]/pharmacy #[id number], Partial fill upon patient [...] 08/22/18 8:35:39 EST, Route to Pharmacy Electronically, [id number], [facility]/pharmacy #[id number] Start Date: 08/22/18 Status: Ordered oxybutynin 10 mg/24 hr oral tablet, extended release 1 tablet = 10 mg, By Mouth, Daily, # 30 tablet, 11 Refills, Maintenance, 10/15/21 13:27:00 EST, ER Tablet, [facility]-, Partial fill upon patient request if the prescription is for a schedule II opioid drug., 160, cm, 08/13/21 10:2... Start Date: 10/15/21 Status: Ordered ProAir HFA 90 mcg/inh inhalation [...] per week., # 12 tablet,0 Refills, Maintenance, 02/19/22 23:11:00 EDT, Tabl... Start Date: 02/19/22 Status: Ordered Symbicort 160mcg/4.5mcg Inhaler 2, puffs, Inhalation, 2 times a day, use with spacer chamber rinse mouth and throat after use, # 1 each, Refills 3, Tot. Refills 3, Maintenance, 08/22/18 8:31:13 EST, Route to Pharmacy Electronically, [id number], [facility]/pharmac... Start Date: 08/22/18 Status: Ordered topiramate 50 [...]
--- OUTSIDE RECORDS SUMMARY | 2024-05-15 20:00 | XMS_ITS | Continuity of Care Document ---
Author Organization [facility] Address [address] [place] [address]- Care Team Providers Care Informatics Pharmacist Name Role Phone Zhane Gaston MD, Simona Marte Primary Care Physici an Encounter [facility] R [id number] Date(s): 06/09/22 - 07/15/[address] [address]- Attending Physician: Fanny Kirk Admitting Physician: Fanny Kirk Referring Physician: Fanny Kirk Allergies, Adverse Reactions, Alerts [...] 08/22/18 8:32:57 EST, Route to Pharmacy Electronically, [id number], [facility]/pharmacy #[id number] Start Date: 08/22/18 Status: [...] Refills, Maintenance, 10/13/18 11:08:48 EST, Directions in kenyan please, 1 sprays Nares, Both Daily,Instr:For first [...] 200 mg, By Mouth, Daily in AM, kenyan, # 30 tablet, 2 Refills, Maintenance, 03/25/22 17:52:00 EDT, [facility]-, Partial fill upon patient request if the prescription is for a schedule II opioid drug., 160, cm, 03/25/22... Start Date: 03/25/22 Status: Ordered Montelukast = 10 mg, By Mouth, Daily, 0 Refills, Maintenance, 08/22/18 8:00:03 EST Start Date: 08/22/18 Status: Ordered montelukast 10 mg oral tablet 10 mg, 1, tablet, By Mouth, Daily, # 30 tablet, Refills 3, Tot. Refills 3, Maintenance, 08/22/18 8:35:39 EST, Route to Pharmacy Electronically, [id number], [facility]/pharmacy #[id number] Start Date: 08/22/18 Status: Ordered oxybutynin 10 mg/24 hr oral tablet, extended release 1 tablet = 10 mg, By Mouth, Daily, # 30 tablet, 11 Refills, Maintenance, 10/15/21 13:27:00 EST, ER Tablet, [facility]-, Partial fill upon patient request if the prescription is for a schedule II opioid drug., 160, cm, 08/13/21 10:2... Start Date: 10/15/21 Status: Ordered ProAir HFA 90 mcg/inh inhalation aerosol with adapter 2, puffs, Inhalation, 3 times a day, Refills 0, Maintenance, 08/22/18 7:57:15 EST Start Date: 08/22/18 Status: Ordered rizatriptan 10 mg oral tablet See Instructions, TAKE 1 TABLET BY MOUTH QD,PRN :FOR MIGRAINE HEADACHE, # 18 tablet, 0 Refills, [facility]-, 160, cm, 03/25/22 18:00:00 EDT, Height, 96, kg, 08/13/21 10:22:00 EST, Dry Weight Start Date: 05/08/22 Status: Ordered Symbicort 160mcg/4.5mcg Inhaler 2, puffs, Inhalation, 2 times a day, use with spacer chamber rinse mouth and throat after use, # 1 each, Refills 3, Tot. Refills 3, Maintenance, 08/22/18 8:31:13 EST, Route to Pharmacy Electronically, [id number], [facility]/pharmac... Start Date: 08/22/18 Status: Ordered topiramate 50 mg oral tablet 1 tablet = 50 mg, By Mouth, Daily, 0 Refills, Maintenance Start Date: 03/05/20 Status: Ordered Problem List Condition Confirmation Course Effective Dates Status Health St [facility] Informant Allergic dermatitis Confirmed Active Asthma Confirmed Active Chronic back pain Confirmed Active Depression Confirmed Active Dizziness Confirmed Active Hyperlipemia Confirmed Active Urinary frequency Confirmed Active Kidney stone Confirmed Active Migraine headache Confirmed Active Narcolepsy Confirmed Active Obese class I Confirmed Active Obstructive sleep apnea Confirmed Active Prediabetes Confirmed Active Primary insomnia Confirmed Active Rosacea Confirmed Active Vitamin D deficiency Confirmed Active Social History Social History Type Response Smoking Status Never (less than 100 in lifetime); Tobacco user in household: No;Never entered on: 08/22/18 Sex Patient Care team information Personnel Name: Zhane Gaston MD, Simona Marte Address: Address: [address] [place] [id number]
--- OUTSIDE RECORDS SUMMARY | 2024-05-15 20:00 | XMS_ITS | Continuity of Care Document ---
Author Organization [facility] Address [address] [place] [address]- Care Team Providers Care Tool Specialist Name Role Phone Zhane Gaston MD, Simona Marte Primary Care Physici an Encounter [facility] Date(s): 07/08/22 - 08/07/22 [facility] [address] [address]- Attending Physician: Librado White Admitting Physician: AdmLibrado casillas Referring Physician: AdmtrLibrado Allergies, Adverse Reactions, Alerts Substance Reaction Severity [...] 08/22/18 8:32:57 EST, Route to Pharmacy Electronically, [id number], [facility]/pharmacy #[id number] Start Date: 08/22/18 Status: Ordered ALPRAZolam [...] Refills, Maintenance, 10/13/18 11:08:48 EST, Directions in saudi arabian please, 1 sprays Nares, Both Daily,Instr:For first [...] 200 mg, By Mouth, Daily in AM, sa[place] arabian, # 30 tablet, 2 Refills, Maintenance, 03/25/22 17:52:00 EDT, [facility]-, Partial fill upon patient request [...] 08/22/18 8:35:39 EST, Route to Pharmacy Electronically, [id number], [facility]/pharmacy #[id number] Start Date: 08/22/18 Status: Ordered oxybutynin 10 mg/24 hr oral tablet, extended release 1 tablet = 10 mg, By Mouth, Daily, # 30 tablet, 11 Refills, Maintenance, 10/15/21 13:27:00 EST, ER Tablet, [facility]-, Partial fill upon patient request [...] MIGRAINE HEADACHE, # 18 tablet, 0 Refills, [facility]-, 160, cm, 03/25/22 18:00:00 EDT, Height, 96, kg, 08/13/21 10:22:00 EST, Dry Weight Start Date: 05/08/22 Status: Ordered Symbicort 160mcg/4.5mcg Inhaler 2, puffs, Inhalation, 2 times a day, use with spacer chamber rinse mouth and throat after use, # 1 each, Refills 3, Tot. Refills 3, Maintenance, 08/22/18 8:31:13 EST, Route to Pharmacy Electronically, [id number], [facility]/pharmac... Start Date: 08/22/18 Status: Ordered topiramate 50 [...] on: 08/22/18 Sex Patient Care team information Care Team Personnel Name: Simona Ribeiro MD Position: [facility] Outreach Member Role: PCP Address: Address: [address] [place] [address] [address] [place] [address]- Care Team Related Persons Name: CHARU BRUNNER Address: home [address] [place] [address] Name: ZACH BRUNNER Address: home [address] [place] [address]
--- OUTSIDE RECORDS SUMMARY | 2024-05-15 20:00 | XMS_ITS | Continuity of Care Document ---
Author Organization [facility] Kerry juan Address [address] [place] [address] [address] [place] [address]- Care Team Providers Care Fraud Manager Name Role Phone Zhane Gaston MD, Simona Marte Primary Care Physici an Encounter [facility] ACCT R [id number] Date(s): 03/15/23 - 03/22/23 [facility] [address] [place] [address]- Attending Physician: Jamie Gay MD Referring Physician: Fanny Kirk Allergies, Adverse Reactions, [...] 08/22/18 8:32:57 EST, Route to Pharmacy Electronically, [id number], [facility]/pharmacy #[id number] Start Date: 08/22/18 Status: Ordered [...] Refills, Maintenance, 10/13/18 11:08:48 EST, Directions in afghan please, 1 sprays Nares, Both Daily,Instr:For first [...] 200 mg, By Mouth, Daily in AM, afghan, # 30 tablet, 5 Refills, Maintenance, 10/27/22 10:52:00 EST, [facility]-, Partial fill upon patient request if the prescription is for a schedule II opioid drug., 160, cm, 03/25/22... Start Date: 10/27/22 Status: Ordered Montelukast = 10 mg, By Mouth, Daily, 0 Refills, Maintenance, 08/22/18 8:00:03 EST Start Date: 08/22/18 Status: Ordered montelukast 10 mg oral tablet 10 mg, 1, tablet, By Mouth, Daily, # 30 tablet, Refills 3, Tot. Refills 3, Maintenance, 08/22/18 8:35:39 EST, Route to Pharmacy Electronically, [id number], [facility]/pharmacy #[id number] Start Date: 08/22/18 Status: Ordered oxybutynin 10 mg/24 hr oral tablet, extended release 1 tablet, By Mouth, Daily, # 90 tablet, 3 Refills, Maintenance, 12/16/22 13:11:00 EDT, [facility]-, 160, cm, 03/25/22 18:00:00 EDT, Height, 96, kg, 08/13/21 10:22:00 EST, Dry Weight Start Date: 12/16/22 Status: Ordered ProAir HFA 90 mcg/inh inhalation aerosol with adapter 2, puffs, Inhalation, 3 times a day, Refills 0, Maintenance, 08/22/18 7:57:15 EST Start Date: 08/22/18 Status: Ordered rizatriptan 10 mg oral tablet See Instructions, TAKE 1 TABLET BY MOUTH QD,PRN :FOR MIGRAINE HEADACHE, # 18 tablet, 0 Refills, [facility], 160, cm, 03/25/22 18:00:00 EDT, Height, 96, kg, 08/13/21 10:22:00 EST, Dry Weight Start Date: 05/08/22 Status: Ordered Symbicort 160mcg/4.5mcg Inhaler 2, puffs, Inhalation, 2 times a day, use with spacer chamber rinse mouth and throat after use, # 1 each, Refills 3, Tot. Refills 3, Maintenance, 08/22/18 8:31:13 EST, Route to Pharmacy Electronically, [id number], [facility]/pharmac... Start Date: 08/22/18 Status: Ordered topiramate 50 mg oral tablet 1 tablet = 50 mg, By Mouth, Daily, 0 Refills, Maintenance Start Date: 03/05/20 Status: Ordered Problem List Condition Confirmation Course Effective Dates Status Health St atus Informant Allergic dermatitis Confirmed Active Asthma Confirmed Active Narcolepsy with cataplexy Confirmed Active Chronic back pain Confirmed Active Depression Confirmed Active Dizziness Confirmed Active Hyperlipemia Confirmed Active Urinary frequency Confirmed Active Kidney stone Confirmed Active Migraine headache Confirmed Active Narcolepsy Confirmed Active Obstructive sleep apnea Confirmed Active Prediabetes Confirmed Active Primary insomnia Confirmed Active Rosacea Confirmed Active Somnambulism Confirmed Active Vitamin D deficiency Confirmed Active Vital Signs Most recent to oldest [Reference Range]: 1 Height 160 cm (03/15/23 10:38 AM) Weight 75.6 kg (03/15/23 10:38 AM) Body Mass Index [18.5-24.99 kg/m2] 29.53 kg/m2 *H* (03/15/23 10:38 AM) Weight Obtained Via Standing scale (03/15/23 10:38 AM) Social History Social History Type Response Smoking Status Never (less than 100 in lifetime); Tobacco user in household: No;Never entered on: 08/22/18 Sex Patient Care team information Care Team Personnel Name: Simona Ribeiro MD Position: [facility] Outreach Member Role: PCP Address: Address: [address] [place] [address] [place] [address]- Care Team Related Persons Name: CHARU BRUNNER Address: [address] [place] [address] Name: ZACH BRUNNER Address: [address] [place] [address]
--- OUTSIDE RECORDS SUMMARY | 2024-05-15 20:00 | XMS_ITS | Continuity of Care Document ---
Author Organization [facility] Address [address] [place] [address]- Care Team Providers Care Manager Company Name Role Phone Zhane Gaston MD, Simona Marte Primary Care Physici an [id number] Date(s): 04/09/22 - 08/07/22 [facility] [address] [place] [address]- Attending Physician: Candi Hawley MD Admitting Physician: Candi Hawley MD Referring Physician: Zhane Gaston MD, Simona Marte Allergies, Adverse Reactions, Alerts Substance Reaction Severity [...] 08/22/18 8:32:57 EST, Route to Pharmacy Electronically, [id number], [facility]/pharmacy #[id number] Start Date: 08/22/18 Status: Ordered [...] Refills, Maintenance, 10/13/18 11:08:48 EST, Directions in upper sorbian please, 1 sprays Nares, Both Daily,Instr:For first [...] 200 mg, By Mouth, Daily in AM, upper sorbian, # 30 tablet, 2 Refills, Maintenance, 03/25/22 17:52:00 EDT, [facility]-, Partial fill upon patient request if [...] 08/22/18 8:35:39 EST, Route to Pharmacy Electronically, [id number], [facility]/pharmacy #[id number] Start Date: 08/22/18 Status: Ordered oxybutynin 10 mg/24 hr oral tablet, extended release 1 tablet = 10 mg, By Mouth, Daily, # 30 tablet, 11 Refills, Maintenance, 10/15/21 13:27:00 EST, ER Tablet, [facility]-, Partial fill upon patient request if [...] MIGRAINE HEADACHE, # 18 tablet, 0 Refills, [facility]-, 160, cm, 03/25/22 18:00:00 EDT, Height, 96, kg, 08/13/21 10:22:00 EST, Dry Weight Start Date: 05/08/22 Status: Ordered Symbicort 160mcg/4.5mcg Inhaler 2, puffs, Inhalation, 2 times a day, use with spacer chamber rinse mouth and throat after use, # 1 each, Refills 3, Tot. Refills 3, Maintenance, 08/22/18 8:31:13 EST, Route to Pharmacy Electronically, [id number], [facility]/pharmac... Start Date: 08/22/18 Status: Ordered topiramate [...] Care team information Care Team Personnel Name: Zhane Gaston MD, Simona Marte Position: [facility] Outreach Member Role: PCP Address: Address: [address] [place] [address] [address] [place] [address]- Care Team Related Persons Name: CHARU BRUNNER Address: [address] [place] [address] Name: ZACH BRUNNER Address: [address] [place] [address]
--- OUTSIDE RECORDS SUMMARY | 2024-05-15 20:00 | XMS_ITS | Continuity of Care Document ---
Author Organization [facility] Address [address] [place] [address]- Care Team Providers Care Wound Care Center Consultant Name Role Phone Zhane Gaston MD, Simona Marte Primary Care Physici an En[facility] Date(s): 04/08/20 - 05/08/20 [facility] [address] [address]- [facility] Attending Physician: Librado White Admitting Physician: AdmtrLibrado Referring Physician: Admtr, Ar8 Allergies, Adverse Reactions, Alerts Substance Reaction Severity [...] 08/22/18 8:32:57 EST, Route to Pharmacy Electronically, [id number], [facility]/pharmacy #[id number] Start Date: 08/22/18 Status: Ordered [...] Refills, Maintenance, 10/13/18 11:08:48 EST, Directions in liechten[place] citizen please, 1 sprays Nares, Both Daily,Instr:For first [...] 08/22/18 8:35:39 EST, Route to Pharmacy Electronically, [id number], [facility]/pharmacy #[id number] Start Date: 08/22/18 Status: Ordered ProAir HFA [...] 08/22/18 8:31:13 EST, Route to Pharmacy Electronically, [id number], [facility]... Start Date: 08/22/18 Status: Ordered topiramate [...]
--- OUTSIDE RECORDS SUMMARY | 2024-05-15 20:00 | XMS_ITS | Continuity of Care Document ---
Author Organization [facility] Kerry juan Address [address] [place] [address] [address] [place] [address]- Care Team Providers Care Cook Chill Technician Name Role Phone Zhane Gaston MD, Simona Marte Primary Care Physici an En[place] [facility] Date(s): 03/15/23 - 04/14/23 [facility] [address] [place] [address]- Attending Physician: Librado White Admitting Physician: AdmtrLibrado Referring Physician: Admtr ArMiguel Allergies, Adverse Reactions, Alerts Substance Reaction Severity [...] 08/22/18 8:32:57 EST, Route to Pharmacy Electronically, [id number], [facility]/pharmacy #[id number] Start Date: 08/22/18 Status: Ordered ALPRAZolam [...] Daily in AM, bangladeshi, # 30 tablet, 5 Refills, Maintenance, 10/27/22 10:52:00 EST, [facility], Partial fill upon patient request if the [...] 08/22/18 8:35:39 EST, Route to Pharmacy Electronically, [id number], [facility]/pharmacy #[id number] Start Date: 08/22/18 Status: Ordered oxybutynin 10 mg/24 hr oral tablet, extended release 1 tablet, By Mouth, Daily, # 90 tablet, 3 Refills, Maintenance, 12/16/22 13:11:00 EDT, [facility]-, 160, cm, 03/25/22 18:00:00 EDT, Height, 96, [...] MIGRAINE HEADACHE, # 18 tablet, 0 Refills, [facility]-, 160, cm, 03/25/22 18:00:00 EDT, Height, 96, kg, 08/13/21 10:22:00 EST, Dry Weight Start Date: 05/08/22 Status: Ordered Symbicort 160mcg/4.5mcg Inhaler 2, puffs, Inhalation, 2 times a day, use with spacer chamber rinse mouth and throat after use, # 1 each, Refills 3, Tot. Refills 3, Maintenance, 08/22/18 8:31:13 EST, Route to Pharmacy Electronically, [id number], [facility]/pharmac... Start Date: 08/22/18 Status: Ordered topiramate 50 [...] Team Personnel Name: Simona Ribeiro MD Position: [facility] Outreach Member Role: PCP Address: Address: [address] [place] [address] [address] [place] [address]- Care Team Related Persons Name: CHARU BRUNNER Address: [address] [place] [address] Name: ZACH BRUNNER Address: [address] [place] [address]
--- OUTSIDE RECORDS SUMMARY | 2024-05-15 20:00 | XMS_ITS | Continuity of Care Document ---
Author Organization [facility] Address Unknown Care Team Providers Care Service Operations Manager Name Role Phone Zhane Gaston MD, Simona Marte Primary Care Physici an En[place] [facility] [place] [id number] Date(s): 04/15/21 - 06/22/21 [facility] Attending Physician: Nadine Willis Admitting Physician: Nadine Willis Referring Physician: Zhane Gaston MD, Simona Marte [...] 08/22/18 8:32:57 EST, Route to Pharmacy Electronically, [id number], [facility]/pharmacy #[id number] Start Date: 08/22/18 Status: Ordered [...] Refills, Maintenance, 10/13/18 11:08:48 EST, Directions in vietnamese please, 1 sprays Nares, Both Daily,Instr:For first [...] 200 mg, By Mouth, Daily in AM, vietnamese, # 30 tablet, 3 Refills, Maintenance, 01/13/21 12:06:00 EDT, [facility]/pharmacy #[id number], Partial fill upon patient request if [...] 08/22/18 8:35:39 EST, Route to Pharmacy Electronically, [id number], [facility]/pharmacy #[id number] Start Date: 08/22/18 Status: Ordered ProAir HFA [...] per week., # 12 tablet,0 Refills, Maintenance, 05/08/21 12:25:00 EDT, Tabl... Start Date: 05/08/21 Status: Ordered Symbicort 160mcg/4.5mcg Inhaler 2, puffs, Inhalation, 2 times a day, use with spacer chamber rinse mouth and throat after use, # 1 each, Refills 3, Tot. Refills 3, Maintenance, 08/22/18 8:31:13 EST, Route to Pharmacy Electronically, [id number], [facility]... Start Date: 08/22/18 Status: Ordered topiramate [...]
--- OUTSIDE RECORDS SUMMARY | 2024-05-15 20:00 | XMS_ITS | Continuity of Care Document ---
Author Organization [facility] Linda [facility] Address [address] [place] [address], [address] [place] [address]- Care Team Providers Care Spring Fitter Helper Name Role Phone Zhane Gaston MD, Simona Marte Primary Care Physici an Encounter [facility] Date(s): 12/16/22 - 01/15/23 [facility]am[facility] [address] [facility], 4th Floor [place], [place] [address] Attending Physician: AdmLibrado casillas Admitting Physician: AdmtrLibrado Referring Physician: Admtr, Red8 Allergies, Adverse Reactions, Alerts Substance Reaction Severity [...] 08/22/18 8:32:57 EST, Route to Pharmacy Electronically, [id number], [facility]/pharmacy #[id number] Start Date: 08/22/18 [...] Refills, Maintenance, 10/13/18 11:08:48 EST, Directions in italian please, 1 sprays Nares, Both Daily,Instr:For first [...] 200 mg, By Mouth, Daily in AM, italian, # 30 tablet, 5 Refills, Maintenance, 10/27/22 10:52:00 EST, [facility], Partial fill upon patient request [...] 08/22/18 8:35:39 EST, Route to Pharmacy Electronically, [id number], [facility]/pharmacy #[id number] Start Date: 08/22/18 Status: Ordered oxybutynin 10 mg/24 hr oral tablet, extended release 1 tablet, By Mouth, Daily, # 90 tablet, 3 Refills, Maintenance, 12/16/22 13:11:00 EDT, [facility], 160, cm, 03/25/22 18:00:00 EDT, Height, 96, [...] MIGRAINE HEADACHE, # 18 tablet, 0 Refills, [facility], 160, cm, 03/25/22 18:00:00 EDT, Height, 96, kg, 08/13/21 10:22:00 EST, Dry Weight Start Date: 05/08/22 Status: Ordered Symbicort 160mcg/4.5mcg Inhaler 2, puffs, Inhalation, 2 times a day, use with spacer chamber rinse mouth and throat after use, # 1 each, Refills 3, Tot. Refills 3, Maintenance, 08/22/18 8:31:13 EST, Route to Pharmacy Electronically, [id number], [facility]... Start Date: 08/22/18 Status: Ordered topiramate [...] HOSPITAL Outreach Member Role: PCP Address: Address: [address] [place] [address] [address] [place] [address] Care Team Related Persons Name: CHARU BRUNNER Address: [address] [place] [address] Name: ZACH BRUNNER Address: [address] [place] [address]
--- OUTSIDE RECORDS SUMMARY | 2024-05-15 20:00 | XMS_ITS | Continuity of Care Document ---
Author Organization [facility] Address [address] [facility], [address], [address] [place] [address]- Care Team Providers Care Payroll Specialist Name Role Phone Zhane Gaston MD, Simona Marte Primary Care Physici an Encounter [facility] Date(s): 03/03/21 - 04/02/21 [facility] [address] [facility], [address]rd [address], [address] [place] [address]- Allergies, Adverse Reactions, Alerts Substance Reaction Severity [...] 08/22/18 8:32:57 EST, Route to Pharmacy Electronically, [id number], [facility]/pharmacy #[id number] Start Date: 08/22/18 [...] Refills, Maintenance, 10/13/18 11:08:48 EST, Directions in montenegrin please, 1 sprays Nares, Both Daily,Instr:For first [...] 200 mg, By Mouth, Daily in AM, montenegrin, # 30 tablet, 3 Refills, Maintenance, 01/13/21 12:06:00 EDT, [facility]/pharmacy #[id number], Partial fill upon patient request if the [...] 08/22/18 8:35:39 EST, Route to Pharmacy Electronically, [id number], [facility]/pharmacy #[id number] Start Date: 08/22/18 [...] 08/22/18 8:31:13 EST, Route to Pharmacy Electronically, [id number], [facility]/pharmac... Start Date: 08/22/18 Status: [...]
--- OUTSIDE RECORDS SUMMARY | 2024-05-15 20:00 | XMS_ITS | Continuity of Care Document ---
Author Organization [facility] Linda [employer] [facility] Address [address] [place] [address], [address] [place] [address]- Care Team Providers Care Senior Research Scientist Name Role Phone Zhane Gaston MD, Simona Marte Primary Care Physici an En[facility] [id number] Date(s): 10/15/21 - 11/14/21 [facility]div[employer] [address] [facility], [address] [place], [place] [address] Attending Physician: Librado White Admitting Physician: AdmLibrado [...] 08/22/18 8:32:57 EST, Route to Pharmacy Electronically, [id number], [facility]/pharmacy #[id number] Start Date: 08/22/18 Status: Ordered [...] Refills, Maintenance, 10/13/18 11:08:48 EST, Directions in greek please, 1 sprays Nares, Both Daily,Instr:For first [...] 200 mg, By Mouth, Daily in AM, greek, # 30 tablet, 3 Refills, Maintenance, 01/13/21 12:06:00 EDT, [facility]/pharmacy #[id number], Partial fill upon patient request if the [...] 08/22/18 8:35:39 EST, Route to Pharmacy Electronically, [id number], [facility]/pharmacy #[id number] Start Date: 08/22/18 Status: Ordered oxybutynin 10 mg/24 hr oral tablet, extended release 1 tablet = 10 mg, By Mouth, Daily, # 30 tablet, 11 Refills, Maintenance, 10/15/21 13:27:00 EST, ER Tablet, [facility], Partial fill upon patient request [...] 08/22/18 8:31:13 EST, Route to Pharmacy Electronically, [id number], [facility] Start Date: 08/22/18 Status: Ordered topiramate [...]
--- OUTSIDE RECORDS SUMMARY | 2024-05-15 20:00 | XMS_ITS | Continuity of Care Document ---
Author Organization [facility] Address [address] [facility], [address] Floor, [address] [place] [address]- Care Team Providers Care Ratoprinter Name Role Phone Zhane Gaston MD, Simona Marte Primary Care Physici an Encounter [facility] ACCT R [id number] Date(s): 01/20/21 - 04/02/21 [facility] [address] [facility], 3rd Floor, [address] [place] [address]- Attending Physician: Nadine Willis Admitting Physician: Nadine Willis Referring Physician: Candi Hawley MD Allergies, Adverse Reactions, Alerts Substance Reaction Severity [...] 08/22/18 8:32:57 EST, Route to Pharmacy Electronically, [id number], [facility]/pharmacy #447 Start Date: 08/22/18 Status: Ordered ALPRAZolam 0.5 [...] Refills, Maintenance, 10/13/18 11:08:48 EST, Directions in faroese please, 1 sprays Nares, Both Daily,Instr:For first [...] 200 mg, By Mouth, Daily in AM, faroese, # 30 tablet, 3 Refills, Maintenance, 01/13/21 12:06:00 EDT, [facility]/pharmacy #[id number], Partial fill upon patient request if the [...] 08/22/18 8:35:39 EST, Route to Pharmacy Electronically, [id number], [facility]/pharmacy #[id number] Start Date: 08/22/18 [...] 08/22/18 8:31:13 EST, Route to Pharmacy Electronically, [id number], [facility]/pharmac... Start Date: 08/22/18 Status: [...]
--- OUTSIDE RECORDS SUMMARY | 2024-05-15 20:00 | XMS_ITS | Continuity of Care Document ---
Author Organization [facility] Address Unknown Care Team Providers Care Wash Tank Tender Name Role Phone Zhane Gaston MD, Simona Marte Primary Care Physici an Encounter [facility] Date(s): 05/23/21 - 06/22/21 [facility] Attending Physician: Librado White Admitting Physician: [...] 08/22/18 8:32:57 EST, Route to Pharmacy Electronically, [id number], [facility]/pharmacy #[id number] Start Date: 08/22/18 Status: Ordered [...] Refills, Maintenance, 10/13/18 11:08:48 EST, Directions in czech please, 1 sprays Nares, Both Daily,Instr:For first [...] 200 mg, By Mouth, Daily in AM, czech, # 30 tablet, 3 Refills, Maintenance, 01/13/21 12:06:00 EDT, [facility]/pharmacy #[id number], Partial fill upon patient request [...] 08/22/18 8:35:39 EST, Route to Pharmacy Electronically, [id number], [facility]/pharmacy #[id number] Start Date: 08/22/18 Status: Ordered ProAir [...] 08/22/18 8:31:13 EST, Route to Pharmacy Electronically, [id number], [facility] Start Date: 08/22/18 Status: Ordered topiramate [...]
--- OUTSIDE RECORDS SUMMARY | 2024-05-15 20:00 | XMS_ITS | Continuity of Care Document ---
Author Organization [facility] Address [address] [place] [address]- Care Team Providers Care Rags Laborer Name Role Phone Zhane Gaston MD, Simona Marte Primary Care Physici an [id number] Date[facility]s): [facility] - 03/12/20 [facility] [address] [address]- [facility] Attending Physician: Fanny Kirk Admitting Physician: Fanny Kirk Referring Physician: Zhane Gaston MD, Simona Marte [...] 08/22/18 8:32:57 EST, Route to Pharmacy Electronically, [id number], [facility]/pharmacy #[id number] Start Date: 08/22/18 Status: Ordered ALPRAZolam [...] Refills, Maintenance, 10/13/18 11:08:48 EST, Directions in belarusian please, 1 sprays Nares, Both Daily,Instr:For first [...] 08/22/18 8:35:39 EST, Route to Pharmacy Electronically, [id number], [facility]/pharmacy #[id number] Start Date: 08/22/18 Status: Ordered ProAir HFA [...] 08/22/18 8:31:13 EST, Route to Pharmacy Electronically, [id number], [facility] Start Date: 08/22/18 Status: Ordered topiramate 50 mg oral tablet 1 tablet = 50 mg, By Mouth, Daily, 0 Refills, Maintenance Start Date: 03/05/20 Status: Ordered Problem List Condition Effective Dates Status Health Status Inform ant Asthma(Confirmed) Active Chronic back pain(Confirmed) Active Depression(Confirmed) Active Hyperlipemia(Confirmed) Active Kidney stone(Confirmed) Active Migraine headache(Confirmed) Active Obstructive sleep apnea(Confirmed) Active Vitamin D deficiency(Confirmed) Active Procedures Procedure Date Related Diagnosis Body Site Status History of hysterectomy C ompleted Social History Social History Type Response Smoking Status Never (less than 100 in lifetime); Tobacco user in household: No;Never entered on: 08/22/18 Sex
--- OUTSIDE RECORDS SUMMARY | 2024-05-15 20:00 | XMS_ITS | Continuity of Care Document ---
Author Organization [facility] Address [address] [place] [address], [address] [place] [address]- Care Team Providers Care Taker Out Name Role Phone Zhane Gaston MD, Simona Marte Primary Care Physici an Encounter [facility] [id number] Date(s): 02/17/24 - 03/18/24 [facility]amarii [facility] [address] [facility] [place], [place] [address] Attending Physician: Librado White Admitting Physician: AdmLibrado [...] 08/22/18 8:32:57 EST, Route to Pharmacy Electronically, [id number], [facility]/pharmacy #[id number] Start Date: 08/22/18 Status: Ordered [...] Refills, Maintenance, 10/13/18 11:08:48 EST, Directions in guamanian please, 1 sprays Nares, Both Daily,Instr:For first week use twice daily then decre... Start Date: 10/13/18 Status: Ordered Flovent Diskus 100 mcg/inh inhalation powder Inhalation, prn, 0 Refills, Maintenance, 08/22/18 7:58:40 EST Start Date: 08/22/18 Status: Ordered Flovent HFA 220 mcg/inh inhalation aerosol Inhalation, prn, 0 Refills, Maintenance, 08/22/18 7:58:16 EST Start Date: 08/22/18 Status: Ordered modafinil 200 mg oral tablet See Instructions, 1 tablet by mouth at 8 AM and noon instructions in guamanian, # 60 tablet, 5 Refills, Maintenance, 10/28/23 13:10:00 EST, [facility], Partial fill upon patient request if the prescription is for a schedule II op... Start Date: 10/28/23 Status: Ordered Montelukast = 10 mg, By Mouth, Daily, 0 Refills, Maintenance, 08/22/18 8:00:03 EST Start Date: 08/22/18 Status: Ordered montelukast 10 mg oral tablet 10 mg, 1, tablet, By Mouth, Daily, # 30 tablet, Refills 3, Tot. Refills 3, Maintenance, 08/22/18 8:35:39 EST, Route to Pharmacy Electronically, [id number], [facility]/pharmacy #[id number] Start Date: 08/22/18 Status: Ordered oxybutynin 10 mg/24 hr oral tablet, extended release 1 tablet, By Mouth, Daily, # 90 tablet, 3 Refills, Maintenance, 02/17/24 13:07:00 EDT, [facility]-, 160, cm, 10/28/23 13:02:00 EST, Height Start Date: 02/17/24 Status: Ordered ProAir HFA 90 mcg/inh inhalation aerosol with adapter 2, puffs, Inhalation, 3 times a day, Refills 0, Maintenance, 08/22/18 7:57:15 EST Start Date: 08/22/18 Status: Ordered rizatriptan 10 mg oral tablet See Instructions, TAKE 1 TABLET BY MOUTH QD,PRN :FOR MIGRAINE HEADACHE, # 18 tablet, 0 Refills, [facility] 160, cm, 03/25/22 18:00:00 EDT, Height, 96, kg, 08/13/21 10:22:00 EST, Dry Weight Start Date: 05/08/22 Status: Ordered Symbicort 160mcg/4.5mcg Inhaler 2, puffs, Inhalation, 2 times a day, use with spacer chamber rinse mouth and throat after use, # 1 each, Refills 3, Tot. Refills 3, Maintenance, 08/22/18 8:31:13 EST, Route to Pharmacy Electronically, [id number], [facility]/pharmac... Start Date: 08/22/18 Status: Ordered topiramate 50 mg oral tablet 1 tablet = 50 mg, By Mouth, Daily, 0 Refills, Maintenance Start Date: 03/05/20 Status: Ordered Problem List Condition Confirmation Course Effective Dates Status H ealth Status Informant Allergic dermatitis Confirmed Active Asthma Confirmed Active Narcolepsy with cataplexy Confirmed Active Chronic back pain Confirmed Active Depression Confirmed Active Dizziness Confirmed Active Fibromyalgia 1 Confirmed 01/28/23 Active Hyperlipemia Confirmed Active Urinary frequency Confirmed Active Kidney stone Confirmed Active Lumbosacral radiculopathy Confirmed 09/01/22 Active Narcolepsy Confirmed Active Obese class I Confirmed Active Obstructive sleep apnea Confirmed Active Prediabetes Confirmed Active Primary insomnia Confirmed Active Rosacea Confirmed Active Somnambulism Confirmed Active Vitamin D deficiency Confirmed Active 1Outside Source Comment: Last Assessment & Plan: Patient was educated about multidisciplinary approach for her condition, it was advise cardiovascular exercise, maintain hydration, treat anxiety/depression and take medications as directed I increase today her gabapentin to 400mhg Q 8hrs Social History Social History Type Response Smoking Status Never (less than 100 in lifetime); Tobacco user in household: No;Never entered on: 08/22/18 Sex Patient Care team information Care Team Personnel Name: Zhane Gaston MD, Simona Marte Position: [facility] Outreach Member Role: PCP Address: Address: [address] [place] [address] [address] [place] [address]- Care Team Related Persons Name: CHARU BRUNNER Address: home [address] [place] [address] Name: ZACH BRUNNER Address: home [address] [place] [address]
--- OUTSIDE RECORDS SUMMARY | 2024-05-15 20:01 | XMS_ITS | Continuity of Care Document ---
Author Organization [facility] Address Unknown Care Team Providers Care Equal Opportunity Representative Name Role Phone Zhane Gaston MD, Simona Marte Primary Care Physici an Encounter [facility] Date(s): 02/18/22 - 03/20/22 [facility] Allergies, Adverse Reactions, Alerts Substance Reaction Severity [...] 08/22/18 8:32:57 EST, Route to Pharmacy Electronically, [id number], [facility]/pharmacy #[id number] Start Date: 08/22/18 Status: Ordered ALPRAZolam [...] Refills, Maintenance, 10/13/18 11:08:48 EST, Directions in botswanan please, 1 sprays Nares, Both Daily,Instr:For first [...] 200 mg, By Mouth, Daily in AM, botswanan, # 30 tablet, 3 Refills, Maintenance, 01/13/21 12:06:00 EDT, [facility]/pharmacy #[id number], Partial fill upon patient request if [...] 08/22/18 8:35:39 EST, Route to Pharmacy Electronically, [id number], [facility]/pharmacy #[id number] Start Date: 08/22/18 Status: Ordered oxybutynin 10 mg/24 hr oral tablet, extended release 1 tablet = 10 mg, By Mouth, Daily, # 30 tablet, 11 Refills, Maintenance, 10/15/21 13:27:00 EST, ER Tablet, [facility]-, Partial fill upon patient request if the [...] 08/22/18 8:31:13 EST, Route to Pharmacy Electronically, [id number], [facility] Start Date: 08/22/18 Status: Ordered topiramate [...]
--- OUTSIDE RECORDS SUMMARY | 2024-05-15 20:01 | XMS_ITS | Continuity of Care Document ---
Author Organization [facility] Address [address] [place] [address]- Care Team Providers Care Subway Conductor Name Role Phone Zhane Gaston MD, Simona Marte Primary Care Physici an [facility] [facility] [place] [id number] Date(s): 01/13/21 - 02/12/[address] [facility] [address] [address]- Attending Physician: Librado White Admitting Physician: Librado White Referring Physician: AdmtrLibrado Allergies, Adverse Reactions, Alerts [...] 08/22/18 8:32:57 EST, Route to Pharmacy Electronically, [id number], [facility]/pharmacy #[id number] Start Date: 08/22/18 Status: [...] Refills, Maintenance, 10/13/18 11:08:48 EST, Directions in indian please, 1 sprays Nares, Both Daily,Instr:For first [...] 200 mg, By Mouth, Daily in AM, indian, # 30 tablet, 3 Refills, Maintenance, 01/13/21 12:06:00 EDT, [facility]/pharmacy #[id number], Partial fill upon patient request if the [...] 08/22/18 8:35:39 EST, Route to Pharmacy Electronically, [id number], [facility]/pharmacy #[id number] Start Date: 08/22/18 Status: [...] 08/22/18 8:31:13 EST, Route to Pharmacy Electronically, [id number], [facility]/pharmac... Start Date: 08/22/18 Status: Ordered [...]
--- OUTSIDE RECORDS SUMMARY | 2024-05-15 20:01 | XMS_ITS | Continuity of Care Document ---
Author Organization [facility] Kerry juan Address [address] [place] [address] [address] [place] [address]- Care Team Providers Care Cigar Binder Name Role Phone Zhane Gaston MD, Simona Marte Primary Care Physici an Encounter [facility] Date(s): 10/28/22 - 11/27/22 [facility] [address] [place] [address]- Allergies, Adverse Reactions, Alerts Substance Reaction Severity [...] 08/22/18 8:32:57 EST, Route to Pharmacy Electronically, [id number], [facility]/pharmacy #[id number] Start Date: 08/22/18 Status: [...] 200 mg, By Mouth, Daily in AM, english, # 30 tablet, 5 Refills, Maintenance, 10/27/22 10:52:00 EST, [facility], Partial fill upon patient request if the [...] 08/22/18 8:35:39 EST, Route to Pharmacy Electronically, [id number], [facility]/pharmacy #[id number] Start Date: 08/22/18 Status: Ordered oxybutynin 10 mg/24 hr oral tablet, extended release 1 tablet, By Mouth, Daily, # 30 tablet, 0 Refills, Maintenance, 10/22/22 15:19:00 EST, [facility], 160, cm, 03/25/22 18:00:00 EDT, Height, 96, kg, 08/13/21 10:22:00 EST, Dry Weight Start Date: 10/22/22 Status: Ordered ProAir HFA 90 mcg/inh inhalation aerosol with adapter 2, puffs, Inhalation, 3 times a day, Refills 0, Maintenance, 08/22/18 7:57:15 EST Start Date: 08/22/18 Status: Ordered rizatriptan 10 mg oral tablet See Instructions, TAKE 1 TABLET BY MOUTH QD,PRN :FOR MIGRAINE HEADACHE, # 18 tablet, 0 Refills, [facility]-, 160, cm, 03/25/22 18:00:00 EDT, Height, 96, kg, 08/13/21 10:22:00 EST, Dry Weight Start Date: 05/08/22 Status: Ordered Symbicort 160mcg/4.5mcg Inhaler 2, puffs, Inhalation, 2 times a day, use with spacer chamber rinse mouth and throat after use, # 1 each, Refills 3, Tot. Refills 3, Maintenance, 08/22/18 8:31:13 EST, Route to Pharmacy Electronically, [id number], [facility]/pharmac... Start Date: 08/22/18 Status: Ordered [...] Name: Zhane Gaston MD, Simona Marte Position: [facility] Outreach Member Role: PCP Address: Address: [address] [place] [address] [place] [address]- Care Team Related Persons Name: CHARU BRUNNER Address: [address] [place] [address] Name: ZACH BRUNNER Address: [address] [place] [address]
[2024-05-15 20:09] LABS: IDNOW Serial# 08D9AD1C; Strep A Nucleic Acid Negative (Negative)
[2024-05-15 20:48] LABS: Influenza A PCR NEGATIVE (Negative); Influenza B PCR NEGATIVE (Negative); Resp Syncy Virus RNA Qual PCR NEGATIVE (Negative); SARS COV2 PCR INHOUSE POSITIVE (Negative)
[2024-05-16 00:53] VITALS: BP 133/86; PULSE 95; RESP 16; TEMP 37.1; O2SAT 98
[2024-05-16 01:07] VITALS: BP 133/86; PULSE 95; RESP 16; TEMP 37.1; O2SAT 98
== END 2024-05-16 01:07 | disposition home or self-care (01) ==
PROVIDERS: Physician Assistant Medical; Emergency Provider Internal Medicine; PCP Internal Medicine
DX: U07.1 COVID-19 (principal); J02.9 Acute pharyngitis, unspecified; R50.9 Fever, unspecified; M79.10 Myalgia, unspecified site; R11.2 Nausea with vomiting, unspecified
CPT/HCPCS: 0241U; 87651; 99283

== ENCOUNTER 2024-05-23 08:39 | Outpatient (AMB) | payer MEDICAID, SELFPAY ==
--- NOTE | 2024-05-23 08:40 | MHC.OFFVISWM ---
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 Allergies Penicillins Allergy (Severe, Verified 05/23/24 08:53) Anaphylaxis aspirin Allergy (Intermediate, Verified 05/23/24 08:53) Rash seafood Allergy (Intermediate, Verified 05/23/24 08:53) Anaphylaxis, rash Medication List - Last Reconciled 05/23/24 by JO ANN Syed albuterol sulfate 90 mcg/actuation 2 puffs inhalation Q4-6H PRN atorvastatin 20 mg PO DAILY betamethasone dipropionate 0.05% 1 appl topical DAILY PRN bupropion HCl 1 tab PO DAILY buspirone 5 mg PO BID kpvdjwvxcx-rzwbwyepwxkka-uxae 50-300-40 mg (Fioricet) 1 cap PO Q4-6H PRN dkynoacubk-hozyvkrrcgbrt-ijbm 50-325-40 mg 1 cap PO Q4H PRN cholecalciferol (vitamin D3) 25 mcg PO DAILY citalopram 20 mg PO DAILY cyclobenzaprine 10 mg PO Q8H gabapentin 300 mg PO BEDTIME hydroxyzine HCl 50 mg PO BID oxybutynin chloride 5 mg PO DAILY oxycodone 5 mg PO Q4H PRN pantoprazole 40 mg PO DAILY sennosides (senna) 8.6 mg PO DAILY sumatriptan succinate (Imitrex) 100 mg PO Q2-4H PRN tizanidine 4 mg PO BID PRN 30 days topiramate 50 mg PO BID HPI Comments Details: This?is a?43?yo female who is s/p LSG 01/06/2022. Presents for 2 year 3 month post op visit. Weight at last visit on 02/03/2024 was 165 pounds with a BMI of 29.2, weight today is 168.4 pounds, representing a 3.4 pound weight gain with a BMI today of 30.8.? No complaints of nausea, emesis, abdominal pain or reflux, or constipation. Was recently diagnosed with COVID, feeling better. Frustrated by lack of weight loss. Present meal plan includes: given at last visit breakfast- Celebrate bar lunch- 3oz protein, 3oz salad dinner- 2 scoops Celebrate 4:1 in 8oz unsweetened almond milk has been having a shake for breakfast (2 scoops 8oz UAM); salad with small portion chicken breast for lunch; for dinner, sometimes protein shake or sometimes a little rice with fish Exercise routine includes: yoga 5x/week, likes to walk 30 min daily but unsure how many calories Pt reports problems of excess skin of abdomen. Has been experiencing rashes of skin folds, has tried OTC topical treatments for open areas which have not PFSH Medical History COVID-19 vaccine series completed BMI 34.0-34.9,adult BMI 39.0-39.9,adult Insomnia Seizures DJD (degenerative joint disease) Stress incontinence GERD (gastroesophageal reflux disease) Hyperlipidemia Sleep apnea with use of continuous positive airway pressure (CPAP) Non-insulin dependent type 2 diabetes mellitus Obesity Well woman exam Ovarian low malignant potential tumor Umbilical hernia Migraine Asthma Morbid obesity Pannus, abdominal Surgical History Hx of tonsillectomy (12/22/23) Hx laparoscopic cholecystectomy S/P laparoscopic sleeve gastrectomy Hx of tubal ligation History of hysterectomy History of bilateral breast reduction surgery Family History Father History of prostate cancer Maternal Aunt History of breast cancer Mother Hypertension Hyperlipidemia Brother Thyroid condition Hypertension Brother No problems noted. Son No problems noted. Daughter No problems noted. Social History Are you a primary primary care nurse practitioner to a significant other at home: No Do you presently have visiting nurse or other home services: No Alcohol intake: never Comment: counts correct Patient Tobacco Use Status: Never used Tobacco service: No Female Reproductive History Menstrual Age of Menarche: 11 Physical Exam Vital Signs: Last Vital Signs Temp 96.3 F L 05/23/24 08:49 Pulse 57 05/23/24 08:49 BP 143/72 H 05/23/24 08:49 Pulse Ox 96 05/23/24 08:49 Oxygen Delivery Method Room Air 05/23/24 08:49 BMI result Body Mass Index 30.8 Const General: cooperative, comfortable and no acute distress Orientation/consciousness: patient oriented x3 GI Other: soft, nontender, nondistended, incisions well healed, no hernia, no masses grade II pannus Neuro General: patient oriented x3 Assessment & Plan Assessment & Plan (1) S/P laparoscopic sleeve gastrectomy: Comment: 01/06/22 Code(s): Z98.84 - Bariatric surgery status Category: Medical (2) Obesity: Code(s): E66.9 - Obesity, unspecified Category: Medical (3) Excess skin: Code(s): L98.7 - Excessive and redundant skin and subcutaneous tissue Category: Medical Plan Pt is frustrated by lack of weight loss. Recommended increasing calorie burn to 2000 bolivar/week (pt likely not hitting that goal right now with yoga and walking), recommended tracking calorie burn with an billy. Meal plan adjusted: breakfast- Celebrate 2 scoops lunch- 6f protein, 6f salad/veg dinner- Celebrate 2 scoops Clotrimazole ointment ordered for rashes of excess skin of abdomen. Discussed BMI requirement of < 27 prior to skin removal surgery. Previous labs reviewed. RTC 3 months. I spent a total of 30 minutes reviewing/updating records, examining the patient and counseling the patient on weight management as detailed above. Medications: New clotrimazole 1% 1 appl topical BID 45 grams 3RF
[2024-05-23 08:49] VITALS: BP 143/72; PULSE 57; TEMP 35.7; O2SAT 96; BMI 30.8
== END 2024-05-23 10:02 | disposition home or self-care (01) ==
PROVIDERS: PCP Internal Medicine; Visit Provider Physician Assistant Surgical
DX: E66.9 Obesity, unspecified (principal); Z98.84 Bariatric surgery status; L98.7 Excessive and redundant skin and subcutaneous tissue
CPT/HCPCS: 99214

== ENCOUNTER → 2024-05-23 08:39 | Outpatient (BNVA) | payer MEDICAID, SELFPAY | PROVIDERS: PCP Internal Medicine; Visit Provider Physician Assistant Surgical | DX: E66.9 Obesity, unspecified (principal); Z68.30 Body mass index [BMI] 30.0-30.9, adult; Z98.84 Bariatric surgery status | CPT/HCPCS: 99212 ==

== ENCOUNTER 2024-06-22 08:41 | Outpatient (AMB) | payer MEDICAID, SELFPAY ==
--- NOTE | 2024-06-22 08:52 | MHC.OFFVIS ---
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 Patient reports that she had a seizure about 6 months ago, after seizure she reports painful and limited ROM as well as tenderness of the shoulder area. Reports history of repeat dislocation as a child but has not had problems with the shoulder until recently Also reports ongoing right knee pain for years now. 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 Patient reports that she had a seizure about 6 months ago, after seizure she reports painful and limited ROM as well as tenderness of the shoulder area. Reports history of repeat dislocation as a child but has not had problems with the shoulder until recently Also reports ongoing right knee pain for years now. [facility] Medical History COVID-19 vaccine series completed BMI 34.0-34.9,adult BMI 39.0-39.9,adult Insomnia Seizures DJD (degenerative joint disease) Stress incontinence GERD (gastroesophageal reflux disease) Hyperlipidemia Sleep apnea with use of continuous positive airway pressure (CPAP) Non-insulin dependent type 2 diabetes mellitus Obesity Well woman exam Ovarian low malignant potential tumor Umbilical hernia Migraine Asthma Morbid obesity Pannus, abdominal Surgical History Hx of tonsillectomy (12/22/23) Hx laparoscopic cholecystectomy S/P laparoscopic sleeve gastrectomy Hx of tubal ligation History of hysterectomy History of bilateral breast reduction surgery Family History Father History of prostate cancer Maternal Aunt History of breast cancer Mother Hypertension Hyperlipidemia Brother Thyroid condition Hypertension Brother No problems noted. Son No problems noted. Daughter No problems noted. Social History Are you a primary transition of care specialist to a significant other at home: No Do you presently have visiting nurse or other home services: No Alcohol intake: never Comment: counts correct Patient Tobacco Use Status: Never used Tobacco service: No Female Reproductive History Menstrual Age of Menarche: 11 Physical Exam Vital Signs: BMI result Body Mass Index 30.7 Const General: cooperative, healthy appearing, no acute distress and well groomed Orientation/consciousness: oriented to person and oriented to place HEENT Head: Yes normal to inspection, Yes normocephalic and Yes atraumatic Eyes General: appearance normal, both eyes and all related structures Alignment and Position: alignment normal Conjunctivae: conjunctivae normal EOM: EOMs intact bilaterally Neck Neck: Yes normal visual inspection and Yes trachea midline Resp Other: No rerpiratory distress Effort & Inspection: normal respiratory effort and able to speak in complete sentences Cardio Other: Palpable radial pulse with no appreciable rythmic abnormalities GI Other: No abdominal distension Back/Spine/Pelvis Cervical Spine: normal cervical lordosis and cervical ROM normal Skin General skin exam: no rashes or lesions noted Neuro General: oriented to person, oriented to place and gait normal Extrem Other: Negative empty can External rotation to 35 degrees Positive Bender and Neer Office Procedures Joint Injection/Aspiration Joint Injection/Aspiration Details: Injected 1 mL of Decadron and 3 mL 1% lidocaine and 3 mL of 0.25% Marcaine. Site was prepped using aseptic technique. Patient tolerated the procedure well. Primary Site: left shoulder Approach Used: posterolateral Coding - Large joint Procedure code (CPT) selection complete Results Reviewed Results Reviewed: I personally reviewed relevant radiographs. Normal left shoulder radiographs Assessment & Plan Assessment & Plan (1) Bursitis of left shoulder: Code(s): M75.52 - Bursitis of left shoulder Category: Medical Plan: Bursitis of the left shoulder. I injected her shoulder and recommend physical therapy. If this does not help she can return to see me. I also discussed NSAIDs and she will take ubsd-ynf-xrptiak NSAIDs as tolerated. Orders: Orders PT Evaluation and Treatment Today M75.52 - Bursitis of left shoulder Coding Level of Care Code New Pt Level 3 (78403) Diagnoses Bursitis of left shoulder M75.52 CPT Codes Coding - Large joint: 80198 - Large joint ([id number])
[2024-06-22 09:14] VITALS: BMI 30.7
== END 2024-06-22 10:18 | disposition home or self-care (01) ==
PROVIDERS: PCP Internal Medicine; Visit Provider Orthopaedic Surgery
DX: M75.52 Bursitis of left shoulder (principal)
CPT/HCPCS: 20610; 99203

== ENCOUNTER → 2024-06-22 08:41 | Outpatient (BNVA) | payer MEDICAID, SELFPAY | PROVIDERS: PCP Internal Medicine; Visit Provider Orthopaedic Surgery | DX: M75.52 Bursitis of left shoulder (principal) | CPT/HCPCS: 20610; 99202; J0665; J1100; J2003 ==

== ENCOUNTER 2024-07-18 11:09 | Outpatient (AMB) | payer MEDICAID, SELFPAY ==
--- NOTE | 2024-07-18 11:13 | A.OFFVIS_ITS ---
Vital Signs 3 07/18/24 11:23 Height 5 ft 2 in Weight 167 lb 8.821 oz BMI 30.6 Pulse 60 Intake Visit Reasons: 6 month breast exam Intake Note: Patient is seen in office for 6 month follow up visit, breast exam. Pt c/o: no concerns or changes mm:01/17/24 Allergies Penicillins Allergy (Severe, Verified 07/18/24 11:23) Anaphylaxis aspirin Allergy (Intermediate, Verified 07/18/24 11:23) Rash seafood Allergy (Intermediate, Verified 07/18/24 11:23) Anaphylaxis, rash HPI Comments Details: 44-year-old female patient presenting for a high risk breast cancer evaluation due to a strong family history of breast cancer. She denies a previous history of breast problems but did undergo a bilateral reduction mammoplasty in 2009 and tolerated the surgery well. Her calculated Tyrer-Cuzick model remaining lifetime risk of breast cancer was calculated at 34%, well above the 20% threshold for high risk protocol. Her most recent mammogram dated 01/17/2024 revealed no mammographic evidence of malignancy (BI-RADS 1). Breast MRI performed on 08/31/2023 revealed no MR specific evidence of malignancy (BI-RADS 1 bilaterally). She reports 4 aunts with breast cancer. She had a pre malignant ovarian lesion subsequently underwent hysterectomy in October 2011. She has a prior history of a fibroadenoma but denies any pre malignant breast lesions. She denies a history of smoking, alcohol consumption, or radiation exposure. She is 1st at age 18, menarche at age 11. She underwent genetic testing on 11/18/2021 which revealed no clinically significant mutations and no mutations of unknown significance. An elevated risk for breast cancer due to her strong family history was identified once again with a Tyrer- Cuzick risk of breast cancer in her remaining life of 34%. Since her last visit she reports no breast related symptoms and generally feels well. She recently underwent a tonsillectomy and denies any current symptoms. [facility] Medical History COVID-19 vaccine series completed BMI 34.0-34.9,adult BMI 39.0-39.9,adult Insomnia Seizures DJD (degenerative joint disease) Stress incontinence GERD (gastroesophageal reflux disease) Hyperlipidemia Sleep apnea with use of continuous positive airway pressure (CPAP) Non-insulin dependent type 2 diabetes mellitus Obesity Well woman exam Ovarian low malignant potential tumor Umbilical hernia Migraine Asthma Morbid obesity Pannus, abdominal Surgical History Hx of tonsillectomy (12/22/23) Hx laparoscopic cholecystectomy S/P laparoscopic sleeve gastrectomy Hx of tubal ligation History of hysterectomy History of bilateral breast reduction surgery Family History Father History of prostate cancer Maternal Aunt History of breast cancer Mother Hypertension Hyperlipidemia Brother Thyroid condition Hypertension Brother No problems noted. Son No problems noted. Daughter No problems noted. Social History Are you a primary animal care specialist to a significant other at home: No Do you presently have visiting nurse or other home services: No Alcohol intake: never Comment: counts correct Patient Tobacco Use Status: Never used Tobacco service: No Female Reproductive History Menstrual Age of Menarche: 11 Review of Systems Const Denies chills, Denies fever(s), Denies headache(s) and Denies poor appetite ENT Denies dizziness and Denies headache(s) Card Denies chest pain, Denies rapid heart rate, Denies palpitations and Denies slow heart rate Resp Denies chest congestion, Denies cough, Denies pain on inspiration and Denies wheezing GI Denies abdominal pain, Denies bloating, Denies change in stool character, Denies constipation, Reports dyspepsia, Denies diarrhea, Denies nausea, Denies vomiting and Denies hematemesis Denies nipple discharge and Reports urinary incontinence Musc Denies back pain, Denies arthralgias, Denies joint swelling and Denies numbness Skin/Breast Denies breast skin changes, Denies breast pain, Denies breast mass, Denies change in pigmentation, Denies nipple discharge, Denies erythema and Denies rash Neuro Denies dizziness, Denies headache(s), Denies numbness and Reports seizure-like activity Psych Denies anxiety and Denies depression Endo Denies palpitations Alejandro/Lymph Denies easy bleeding, Denies easy bruising and Denies lymphadenopathy Aller/Immun Denies wheezing Physical Exam Vital Signs: Last Vital Signs Pulse 60 07/18/24 11:23 BMI result Body Mass Index 30.6 Const General: cooperative, comfortable and well developed Nutritional Appearance: well nourished Orientation/consciousness: patient oriented x3 Eyes Sclerae: sclerae normal EOM: EOMs intact bilaterally Neck Neck: Yes normal visual inspection Chest Other: Bilateral breast reduction incisions Left breast: No skin change, no nipple retraction, no nipple discharge, no palpable mass, no enlarged lymph nodes. Right breast: No skin change, no nipple retraction, no nipple discharge, no palpable mass, no enlarged lymph nodes Chest/axillae images: 2 1. 4 mm nevi right breast Resp Effort & Inspection: normal respiratory effort, no cough, no respiratory distress and no stridor Cardio Jugular venous distension: no JVD GI Inspection: Yes normal to inspection Palpation (GI): Soft to palpation, nontender, no guarding and not rigid Skin General skin exam: dry skin Rashes: no rashes Neuro General: patient oriented x3 and no focal motor deficits Extrem General: Yes full ROM and Yes no clubbing, cyanosis or edema Psych Appearance: grossly normal Assessment & Plan Assessment & Plan (1) At high risk for breast cancer: Code(s): Z91.89 - Other specified personal risk factors, not elsewhere classified Category: Medical Plan 44-year-old female patient presenting with a strong family history breast cancer presenting today for high risk breast cancer evaluation. Her most recent mammogram 01/17/2024 revealed no mammographic evidence of malignancy (BI-RADS 1). Her calculated Tyrer-Cuzick risk for breast cancer in her remaining life was calculated at 34%. Breast MRI dated 08/31/2023 revealed no MR specific evidence of malignancy (BI-RADS 1 bilaterally). Examination revealed no suspicious findings in either breast. She will be due for annual breast MRI in August 2024. She should continue her high risk breast screening with twice yearly clinical breast examinations, yearly mammogram alternating with yearly breast MRI. She is welcome to call sooner for any new concerns. Orders: Orders 2 MR breast BI wo/w con 09/01/24 Z91.89 - Other specified personal risk factors, not elsewhere classified Coding Level of Care Code Est Pt Level 3 (99217) Complex EM visit Add On G2211 Diagnoses At high risk for breast cancer Z91.89
[2024-07-18 11:23] VITALS: PULSE 60; BMI 30.6
== END 2024-07-18 11:31 | disposition home or self-care (01) ==
LOC: HO.HGS 11:10
PROVIDERS: PCP Internal Medicine; Visit Provider Surgery
DX: Z91.89 Other specified personal risk factors, not elsewhere classified (principal)
CPT/HCPCS: 99213

== ENCOUNTER → 2024-07-18 11:09 | Outpatient (BNVA) | payer MEDICAID, SELFPAY | PROVIDERS: PCP Internal Medicine; Visit Provider Surgery | DX: Z91.89 Other specified personal risk factors, not elsewhere classified (principal); Z80.3 Family history of malignant neoplasm of breast | CPT/HCPCS: 99212 ==

== ENCOUNTER 2024-08-15 13:00 | Outpatient (RCR) | payer MEDICAID, SELFPAY ==
--- NOTE | 2024-07-11 14:00 | MHC.PT.EP ---
[facility] [place] Office [place] Office [place] Office [address] [phone] F: [phone] F: [phone] F: [phone] F: [phone] Physical Therapy Plan of Care Date of Evaluation: 07/11/24 Date of Surgery: Diagnosis: bursitis of left shoulder Assessment: Patient is a 60 year old R handed female who presents with s/s consistent with L shoulder pain, L shoulder bursitis. She does not work but does like to stay active at home and in the community. Patient past medical history includes epilepshy and obesity, among other comorbidities. Current impairments include pain, posture, ROM, strength, activity tolerance and functional mobility. Functional limitations include decreased ability to reach, lift, push, pull, carry, dress and sleep. Patient is motivated with good rehab potential. Skilled PT will address impairments and functional limitations in order to achieve goals. Frequency and Duration: The patient will be seen 2x/week for 5 weeks Short Term Goals: I with hep- 2 weeks AROM flexion, abd 120 and pain free - 3 week able to sleep pain free - 3 weeks Assisted Goals: Max pain with ADLs /10 - 5 weeks SPADI 40/130 or better - 5 weeks Strength 4/5 grossly - 5 weeks Treatment Plan: Modalities to reduce pain, spasms and effusion. Manual therapy to restore motion and function. Therapeutic exercise to improve strength and flexibility. Neuromuscular re-education for posture and balance. Therapeutic activities to return to functional activities of daily living. Electronically signed by: Ruddy Lo, PT Please sign and return to therapist. Thank you for your referral.
--- NOTE | 2024-12-08 10:50 | MHC.PT.DC ---
[employer] [place] Office [place] Office [place] Office [address] Roni Garcia [address] [phone] F: [phone] F: [phone] F: [phone] F: [phone] Physical Therapy Discharge Report Diagnosis: bursitis of left shoulder Date of Surgery: Date of Evaluation: 07/11/24 Date of Discharge: 09/09/24 Treatments to Date: 7 Cancellations to Date: No Shows to Date: Discharge Status: Independent with HEP Patient Elected to Stop Discharge Summary: 08/15/24: held progression today but did update HEP. continue to progress as tolerated NV. 08/09/24: pt progressing well with skilled PT. no some pain and tenderness with ER/IR. edu on pain free ex. continue to progress as tolerated. 08/03/24: pain has limited progression. we have been able to progress ROM but limited with strength progression due to post pain. 07/25/24: held progression due to some soreness. we will attempt to progress Nv. 07/18/24: pt progressing slowly with ROM. notes increased pain today and we increased activity. assess response before progressing. 07/13/24: pt progressing well overall. slight decreased in pain and able to progress strength. assess response and progress as tolerated. Patient is a 60 year old R handed female who presents with s/s consistent with L shoulder pain, L shoulder bursitis. She does not work but does like to stay active at home and in the community. Patient past medical history includes epilepshy and obesity, among other comorbidities. Current impairments include pain, posture, ROM, strength, activity tolerance and functional mobility. Functional limitations include decreased ability to reach, lift, push, pull, carry, dress and sleep. Patient is motivated with good rehab potential. Skilled PT will address impairments and functional limitations in order to achieve goals. Electronically signed by: Ruddy Lo, PT Please sign and return to therapist. Thank you for your referral.
== END 2024-12-08 10:51 | disposition home or self-care (01) ==
LOC: HO.PTCHIC 13:00
PROVIDERS: PCP Internal Medicine; Visit Provider Orthopaedic Surgery
DX: M75.52 Bursitis of left shoulder (principal)
CPT/HCPCS: 97110; 97140; 97163; 97530

== ENCOUNTER 2024-08-21 10:06 | Outpatient (AMB) | payer MEDICAID, SELFPAY ==
--- NOTE | 2024-08-21 10:21 | MHC.OFFVISWM ---
VS Expanded 08/21/24 10:29 BP 130/79 Blood Pressure Location Rt brachial Blood Pressure Position Sitting Pulse 62 Pulse Source Pulse Oximeter Temp 96.9 F Temperature Source Temporal Artery Scan Pulse Oximetry 99 Oxygen Delivery Method Room Air Height 5 ft 2 in Weight 172 lb 6.4 oz BMI 31.5 Body Fat % 41.9 Body Fat Mass 72.0 Fat Free Mass 100.0 Visceral Fat Rating 9.0 Body Water % 41.5 Body Water Mass 71.4 Muscle Mass/Score 95.0 Basal Metabolic Rate/Score 1,404 Intake Visit Reasons: (OV) PO LSG 01/06/22 Science Professor Required: Yes Science Professor Name: [id number] Allergies Penicillins Allergy (Severe, Verified 08/21/24 10:25) Anaphylaxis aspirin Allergy (Intermediate, Verified 08/21/24 10:25) Rash seafood Allergy (Intermediate, Verified 08/21/24 10:25) Anaphylaxis, rash Medication List - Last Reconciled 08/21/24 by JO ANN Syed albuterol sulfate 90 mcg/actuation 2 puffs inhalation Q4-6H PRN atorvastatin 20 mg PO DAILY betamethasone dipropionate 0.05% 1 appl topical DAILY PRN bupropion HCl 1 tab PO DAILY buspirone 5 mg PO BID bdzeeuzquw-whgahtmrvptcz-igys 50-300-40 mg (Fioricet) 1 cap PO Q4-6H PRN fynfketexh-rqjhyrpzqwqet-rpwn 50-325-40 mg 1 cap PO Q4H PRN cholecalciferol (vitamin D3) 25 mcg PO DAILY citalopram 20 mg PO DAILY clotrimazole 1% 1 appl topical BID cyclobenzaprine 10 mg PO Q8H gabapentin 300 mg PO BEDTIME hydroxyzine HCl 50 mg PO BID oxybutynin chloride 5 mg PO DAILY oxycodone 5 mg PO Q4H PRN pantoprazole 40 mg PO DAILY sennosides (senna) 8.6 mg PO DAILY sumatriptan succinate (Imitrex) 100 mg PO Q2-4H PRN tizanidine 4 mg PO BID PRN 30 days topiramate 50 mg PO BID HPI Comments Details: This?is a?44?yo female who is s/p LSG 01/06/2022. Presents for 2 year 8 month post op visit. Weight gain of 4lbs since last OV.? No complaints of nausea, emesis, abdominal pain or reflux. Continues to struggle with constipation- only 1-2x per week will have a BM. Takes senna, has tried milk of magnesia in the past but vomited with this. Pt reports feeling bloated and recognizes she has gained weight. Also reports a fire sensation of stomach. On pantoprazole. No smoking, NSAIDs, EtOH. Below meal plan was created at last visit. Having difficulty tolerating meat- can tolerate chicken only. Pt thinks she is not getting enough protein, denies eating any starches. Present meal plan includes: breakfast- Celebrate 2 scoops lunch- 6f protein, 6f salad/veg dinner- Celebrate 2 scoops Exercise routine includes: yoga 5x/week, likes to walk 30 min daily but unsure how many calories Pt reports problems of excess skin of abdomen. Has been experiencing rashes of skin folds, has tried OTC topical treatments for open areas. [facility] Medical History COVID-19 vaccine series completed BMI 34.0-34.9,adult BMI 39.0-39.9,adult Insomnia Seizures DJD (degenerative joint disease) Stress incontinence GERD (gastroesophageal reflux disease) Hyperlipidemia Sleep apnea with use of continuous positive airway pressure (CPAP) Non-insulin dependent type 2 diabetes mellitus Obesity Well woman exam Ovarian low malignant potential tumor Umbilical hernia Migraine Asthma Morbid obesity Pannus, abdominal Surgical History Hx of tonsillectomy (12/22/23) Hx laparoscopic cholecystectomy S/P laparoscopic sleeve gastrectomy Hx of tubal ligation History of hysterectomy History of bilateral breast reduction surgery Family History Father History of prostate cancer Maternal Aunt History of breast cancer Mother Hypertension Hyperlipidemia Brother Thyroid condition Hypertension Brother No problems noted. Son No problems noted. Daughter No problems noted. Social History Are you a primary childcare teacher to a significant other at home: No Do you presently have visiting nurse or other home services: No Alcohol intake: never Comment: counts correct Patient Tobacco Use Status: Never used Tobacco service: No Female Reproductive History Menstrual Age of Menarche: 11 Physical Exam Vital Signs: Last Vital Signs Temp 96.9 F 08/21/24 10:29 Pulse 62 08/21/24 10:29 BP 130/79 08/21/24 10:29 Pulse Ox 99 08/21/24 10:29 Oxygen Delivery Method Room Air 08/21/24 10:29 BMI result Body Mass Index 31.5 Assessment & Plan Assessment & Plan (1) S/P laparoscopic sleeve gastrectomy: Comment: 01/06/22 Code(s): Z98.84 - Bariatric surgery status Category: Medical (2) Obesity: Code(s): E66.9 - Obesity, unspecified Category: Medical Plan Pt willing to try Miralax for constipation- Rx sent. Gave access to [employer] for pt to create her own meal plan. Can increase PPI to BID when needed, however I am hopeful that her symptoms will improve by changing her meal plan. She will text me with questions between visits. RTC 3 months. I spent a total of 30 minutes reviewing/updating records, examining the patient and counseling the patient on weight management as detailed above. Medications: New polyethylene glycol 3350 17 grams PO DAILY 510 grams 3RF
[2024-08-21 10:29] VITALS: BP 130/79; PULSE 62; TEMP 36.1; O2SAT 99; BMI 31.5
== END 2024-08-21 11:05 | disposition home or self-care (01) ==
PROVIDERS: PCP Internal Medicine; Visit Provider Physician Assistant Surgical
DX: E66.9 Obesity, unspecified (principal); Z98.84 Bariatric surgery status
CPT/HCPCS: 99214

== ENCOUNTER → 2024-08-21 10:06 | Outpatient (BNVA) | payer MEDICAID, SELFPAY | PROVIDERS: PCP Internal Medicine; Visit Provider Physician Assistant Surgical | DX: E66.9 Obesity, unspecified (principal); Z68.31 Body mass index [BMI] 31.0-31.9, adult; Z90.3 Acquired absence of stomach [part of] | CPT/HCPCS: 99212 ==

== ENCOUNTER 2024-09-01 08:47 | Outpatient (REF) | payer MEDICAID, SELFPAY ==
[2024-09-01] MEDS: gadobutroL 10 ML VIAL IVPUSH (10:17)
== END 2024-09-01 08:48 | disposition home or self-care (01) ==
LOC: HO.MRI 08:47
PROVIDERS: PCP Internal Medicine; Visit Provider Surgery
DX: Z12.39 Encounter for other screening for malignant neoplasm of breast (principal); Z91.89 Other specified personal risk factors, not elsewhere classified
CPT/HCPCS: 77049; A9585

== ENCOUNTER → 2024-09-01 09:13 | Outpatient (BNV) | payer MEDICAID, SELFPAY | PROVIDERS: PCP Internal Medicine; Visit Provider Internal Medicine | DX: Z12.39 Encounter for other screening for malignant neoplasm of breast (principal) | CPT/HCPCS: 77049 ==

== ENCOUNTER 2024-11-02 14:28 | Outpatient (REF) | payer MEDICAID, SELFPAY ==
--- NOTE | ~2024-11-02 | XR_ITS ---
EXAMINATION: XR HAND, RIGHT CLINICAL INFORMATION: acute pain for a month COMPARISON: None available. TECHNIQUE: PA, lateral, and oblique views of the right hand. FINDINGS: No fracture, dislocation, or suspicious bone lesion. Normal bone mineralization. Normal alignment. Joint spaces are preserved. No significant arthropathy. Mild periarticular osteopenia. Soft tissues appear normal. XR/XR hand RT min 3V IMPRESSION: 1. Mild periarticular osteopenia without significant erosions or joint space loss. 2. Otherwise normal exam. Electronically signed by: Jair Nuno MD 11/02/2024 02:52 PM EST
--- OUTSIDE RECORDS SUMMARY | 2024-11-02 14:32 | XMS_ITS | Encounter Summary ---
Author Organization [employer] Address [address] [place] [address] Care Team Providers Care Track Watchman Name Role Phone Simona Ribeiro MD Primary Care Provide r Reason for Visit * Reason Onset Date Comments Home Care Services 12/07/2022 I called the pt regarding a Physician Summary Form, from [employer]. She stated that she does not need assistance with personal care,but she does need assistance with housekeeping, shopping, and cooking. She has seizures often, and it is difficult for her to do things around her home, especially with cooking. She has two sons, but they work and are not able to provide much help. Encounter Details Date Type Department Care Team (Late st Contact Info) Description 12/07/2022 Telephone [facility] MEDICINE [address] [place] [address] Simona Ribeiro MD [address] [place], [place] [phone] Home Care Services (I called the pt regarding a Physician Summary Form, from [employer]. She stated that she does not need assistance with personal care,/but she does need assistance with housekeeping, shopping, and cooking. She has seizures often, and it is difficult for her to do things around her home, especially with cooking. She has two sons, but they work and are not able to provide much help.) Social History Tobacco Use Types Packs/Day Years Used Date Smoking Tobacco: Never Smokeless Tobacco: Never Alcohol Use Standard Drinks/Week Comments Never 0 (1 standard drink = 0.6 oz pur e alcohol) PHQ-2 Answer Date Recorded Patient Health Questionnaire-2 Score 0 10/16/2022 Depression Answer Date Recorded Patient Health Questionnaire-2 Score 0 10/16/2022 Comments Unknown Sex and Gender Information Value Date Recorded Sex Assigned at Female 07/20/2022 10:36 AM EDT Legal Sex Female 10:36 AM EDT Gender Identity Female 07/20/2022 10:36 AM EDT Sexual Orientation Choose not to disclose 2021 10:36 AM EDT COVID-19 Exposure Response Date Recorded In the last 10 days, have yo u been in contact with someone who was confirmed or suspected to have Coronavirus/COVID-19? No / Unsure 11/16/2022 9:29 AM EST documented as of this encounter Plan of Treatment Upcoming Encounters Date Type Department Care Team (Late st Contact Info) Description 11/20/2024 9:30 AM EST Office Visit [facility] OPTOMETRY [address] [place] [address] Ren, Jessika, OD [address] [place] [address] 12/21/2024 3:30 PM EDT Telemedicine [facility] MEDICINE [address] [place] [address] Simona Ribeiro MD [address] [place] [address] 03/07/2025 9:00 AM EDT Office Visit [facility] ADULT DENTAL [address] [place] [address] Nevin Cabezas documented as of this encounter Visit Diagnoses Not on filedocumented in this encounter Care Teams Track Watchman Relationship Specialty Start Date End Date Simona Ribeiro MD [address] [place] [id number] PCP - General Family Medicine 07/21/19 Social Project 02/22/24 documented as of this encounter
--- OUTSIDE RECORDS SUMMARY | 2024-11-02 14:32 | XMS_ITS | Data Portability ---
Author Organization [facility], autoContract Address [address] [place] [address] Care Team Providers Care Watch Technician Name Role Phone MORRIS DOUGHERTY Primary Care Provider Assessment Encounter Date Assessment Date Assessment LastModified by Organization Details LastModified Time 05/31/2017 05/31/2017 Patient here for supervised diet visit 10/26. Patient has lost 2 pounds over the past month. Her daughter is a huge support throughout this process. Diet summary: Eating 3 meals per day, portion sizes have been small. Achieved previous goals of eating slowly and waiting 30 minutes to drink liquids before and after meals. Has been setting a timer and taking 20-30 mins to eat a meal, on average. Drinking 9 bottles of water per day and zero calorie containing/carbo nated beverages. Exercise summary: Joined [employer], has goal to go 2-3 times per week. Provided exercise handout and encouraged incorporation of resistance exercise and stretching. Vits/Mins: Has not purchased yet Patient reports being very motivated and receptive to incorporating gradual changes including reducing portion sizes, incorporating 3 meals/day, drinking adequate sugar-free non-carbonated fluids, alternating liquids and solids, eating slowly, and stopping when satisfied. eoates Not available 05/31/2017 14:51:30 07/07/2017 07/07/2017 ? P atient here for supervised diet visit 11/23. Patient has gained 1.5 pounds over the past month. Diet summary: Eating 3 meals per day, sometimes replacing lunch or dinner with a protein shake. Drinking only water, has eliminated juices. 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 Incorporates cardio and strength training. Vits/Mins: Taking Centrum chewable MVI eoates Not available 07/07/2017 13:31:55 08/09/2017 08/09/2017 ? P atient here for supervised diet visit 12/24. Patient has lost 2 pounds over the past month. Diet summary: Eating 3 meals per day, replacing at least one with a protein shake. Has been eating smaller portions, avoiding rice, bread, and pasta. Typically doesn't eat out at restaurants often, but this past week she ate out almost every day because she was busy. Snacks on fruits or has a protein shake/bar. Drinking only water, at least 64 oz daily. Has not yet begun waiting 30 minutes before/after meals to drink or avoiding liquids during her meals. Exercise summary: Going to [employer] for at least an hour ~3 days per week. Mainly cardio. Vits/Mins: Centrum MVI eoates Not available 08/09/2017 14:05:26 09/06/2017 09/06/2017 Patient here for supervised diet visit 01/23. Patient has lost ~1.5 pounds over the past month. Diet summary: Completely cut out juices and sweets/high sugar items. Has been avoiding liquids during her meals. Still utilizing a protein shake for at least one meal per day. Just got an air fryer and has been making chicken breast and healthier foods. Drinking 8-10 water bottles per day. Exercise summary: Got an exercise machine at home and she spends more time exercising now that is more convenient. Is aiming to do this most days of the week for ~2 hours. Vits/Mins: Centrum MVI eoates Not available 09/06/2017 14:21:54 09/27/2017 09/27/2017 Patient here for final supervised diet visit. Patient has lost 2 pounds over the past month. Given pre-op labs and instructed to go to pre-op class. Diet summary: Eating 2 meals per day + 1 protein shake. Loves experimenting her air fryer. Has been reducing portion sizes and avoiding foods high in sugars/carbohydr ates. Drinking adequate fluids and avoiding liquids during meals and 30 minutes before/after meals. Exercise summary: Exercising at home for 1 hour per day, most days of the week Vits/Mins: Taking Centrum MVI eoates Not available 09/27/2017 16:46:28 Plan of Treatment Reminders Order Date Submit Date Provider Last Modified By Organization Details Last Modified Time Details Appointments None record ed. Lab None record ed. Referral None record ed. Procedures None record ed. Surgeries None record ed. Imaging None record ed. Medication Orders None record ed. Patient TargetsNo targets recorded. Patient Instructions Encounter Date Encounter Id Patient Instructions Last Modified By Organization Details Last Modified Time 05/31/2017 [id number] Patient previous ly instructed on pre and post-op diet for Gastric Sleeve, reported no current questions. Discussed vit/min supplementation at length as well as recommend brands, consumption by two hours, and dosage levels. Patients intake of protein, calories, and fluids were discussed. Realistic weight goals, expected weight loss with diet and exercise as well as incorporating excercise into a daily routine w/ specific ideas to increasing activity level were discussed. The goals set forth for the patient are the following: Successful long-term weight loss with minimal complications, reduction in co morbid conditions, for the patient to choose healthy foods in appropriate amounts, and incorporate physical activity into daily routine. Patient agrees to work on the followin.) Begin vitamin regimen 2.) Continue eating slowly 3.) Increase physical activity (~3 times per week) and incorporate resistance exercise. eoates Not available 05/31/2017 14:52:20 07/07/2017 [id number] Patient previous ly instructed on pre and post-op diet for Gastric Sleeve, reported no current questions. Briefly reviewed vit/min supplementation as well as recommend brands, Calcium & Iron by two hours, and proper dosage levels. Patient's intake of protein, calories, and fluids were discussed. Realistic weight goals, expected weight loss with diet and exercise as well as incorporating excercise into a daily routine w/ specific ideas to increasing activity level were discussed. ? T he goals set forth for the patient are the following: Successful long-term weight loss with minimal complications, reduction in co morbid conditions, for the patient to choose healthy foods in appropriate amounts, and incorporate physical activity into daily routine. Patient agrees to work on the followin.) Eat three meals per day and snacks as needed. 2.) Eliminate calorie/sugar containing beverages. 3.) Begin vit/min regimen as discussed (Recommend: MVI chewable x2/day, Calcium Citrate 500 mg BID) 4.) Purchase and test protein powders (Premier, Unjury, etc.) 5.) Increase physical activity 6.) Practice eating slowly, about 15-20 mins per meal. 7.) Practice alternating liquids and solids, waiting 30 mins pre/post mealtimes to drink fluids. eoates Not available 07/07/2017 13:32:03 08/09/2017 [id number] Patient previous ly instructed on pre and post-op diet for Gastric Sleeve, reported no current questions. Briefly reviewed vit/min supplementation as well as recommend brands, Calcium & Iron by two hours, and proper dosage levels. Patient's intake of protein, calories, and fluids were discussed. Realistic weight goals, expected weight loss with diet and exercise as well as incorporating excercise into a daily routine w/ specific ideas to increasing activity level were discussed. ? T he goals set forth for the patient are the following: Successful long-term weight loss with minimal complications, reduction in co morbid conditions, for the patient to choose healthy foods in appropriate amounts, and incorporate physical activity into daily routine. Patient agrees to work on the followin.) Eat three meals per day and snacks as needed. 2.) Eliminate calorie/sugar containing beverages. 3.) Begin vit/min regimen as discussed (Recommend: MVI chewable x2/day, Calcium Citrate 500 mg BID) 4.) Purchase and test protein powders (Premier, Unjury, etc.) 5.) Increase physical activity 6.) Practice eating slowly, about 15-20 mins per meal. 7.) Practice alternating liquids and solids, waiting 30 mins pre/post mealtimes to drink fluids. eoates Not available 08/09/2017 13:50:00 09/06/2017 [id number] Patient previous ly instructed on pre and post-op diet for Gastric Sleeve, reported no current questions. Briefly reviewed vit/min supplementation as well as recommend brands, Calcium & Iron by two hours, and proper dosage levels. Patient's intake of protein, calories, and fluids were discussed. Realistic weight goals, expected weight loss with diet and exercise as well as incorporating excercise into a daily routine w/ specific ideas to increasing activity level were discussed. The goals set forth for the patient are the following: Successful long-term weight loss with minimal complications, reduction in co morbid conditions, for the patient to choose healthy foods in appropriate amounts, and incorporate physical activity into daily routine. Patient agrees to work on the followin.) Eat three meals per day and snacks as needed. 2.) Eliminate calorie/sugar containing beverages. 3.) Begin vit/min regimen as discussed (Recommend: MVI chewable x2/day, Calcium Citrate 500 mg BID) 4.) Purchase and test protein powders (Premier, Unjury, etc.) 5.) Increase physical activity 6.) Practice eating slowly, about 15-20 mins per meal. 7.) Practice alternating liquids and solids, waiting 30 mins pre/post mealtimes to drink fluids. eoates Not available 09/06/2017 14:09:26 09/27/2017 [id number] Patient previous ly instructed on pre and post-op diet for Gastric Sleeve, reported no current questions. Briefly reviewed vit/min supplementation as well as recommend brands, Calcium & Iron by two hours, and proper dosage levels. Patient's intake of protein, calories, and fluids were discussed. Realistic weight goals, expected weight loss with diet and exercise as well as incorporating excercise into a daily routine w/ specific ideas to increasing activity level were discussed. The goals set forth for the patient are the following: Successful long-term weight loss with minimal complications, reduction in co morbid conditions, for the patient to choose healthy foods in appropriate amounts, and incorporate physical activity into daily routine. Patient agrees to work on the followin.) Eat three meals per day and snacks as needed. 2.) Eliminate calorie/sugar containing beverages. 3.) Begin vit/min regimen as discussed (Recommend: MVI chewable x2/day, Calcium Citrate 500 mg BID) 4.) Purchase and test protein powders (Premier, Unjury, etc.) 5.) Increase physical activity 6.) Practice eating slowly, about 15-20 mins per meal. 7.) Practice alternating liquids and solids, waiting 30 mins pre/post mealtimes to drink fluids. eoates Not available 09/27/2017 16:32:29 Reason for Referral None Reported. Results Created Date Observation Date Name Description Value Unit Range Abnormal Flag Note LastModifiedBy Organization Detail LastModifiedTime Result Notes None recorded. Problems Name Problem SNOMED Code Status Onset Date Resolution Date Notes Provider Name and Address Organization Details Recorded Time Obesity 561650389 Active [address] [facility] Surgery 7 14:06:32 Body mass index 30+ - obesity 376189132 Active [address] [facility] Surgery 7 14:06:40 Sleep apnea 91978864 Active [address] [facility] Surgery 7 14:09:27 Hypercholeste rolemia 25772852 Active 2016 Jimi Samuels [facility] Surgery 7 15:07:19 Problem Notes None recorded. Procedures Surgical History Date Name Laterality Status Provider Name and Address Organization Details Recorded Time Breast Surgery completed [facility] Surgery 09/24/2016 12:05:31 Hysterectomy completed [facility] Surgery 09/24/2016 12:05:54 Imaging Results None recorded. Procedure Notes None recorded. Medical Equipment None Reported. Allergies Allergen ID Allergen Name Allergen Category Reaction Reaction Severity Criticality Documentation Date Start Date Code Code System Note Provider Name and Address Organization Details Recorded Time 31378 Product containin g penicilli n and antibioti c (product) medicatio n Not available Not available Not available 09/24/2016 17471 05 SNOMED Not Available Not Available Not Available Medications Name Sig Start Date Stop Date Status Note LastModified by Organization Details LastModified Time albuterol sulfate 0.63 mg/3 mL solution for nebulization 09/28 completed Not Available Not Available Not Available atorvastatin 20 mg tablet active Not Available Not Available Not Available albuterol sulfate 2.5 mg/3 mL (0.083 %) solution for nebulization 09/28 completed Not Available Not Available Not Available azithromycin 250 mg tablet 09/28 completed Not Available Not Available Not Available clarithromyc in 500 mg tablet Take 1 tablet twice a day by oral route for 14 days. 05/03 completed Not Available Not Available Not Available sumatriptan 100 mg tablet active Not Available Not Available Not Available Doc-Q-Lace 100 mg capsule 09/28 completed Not Available Not Available Not Available topiramate 25 mg tablet active Not Available Not Available Not Available metronidazol e 500 mg tablet Take 1 tablet twice a day by oral route for 14 days. 05/03 completed Not Available Not Available Not Available omeprazole 40 mg capsule,flavio yed release active Not Available Not Available Not Available amitriptylin e 50 mg tablet 09/28 completed Not Available Not Available Not Available bupropion HCl SR 100 mg tablet,12 hr sustained-re lease 09/28 completed Not Available Not Available Not Available butalbital-a cetaminophen -caffeine 50 mg-325 mg-40 mg tablet 03/19 completed Not Available Not Available Not Available bupropion HCl 100 mg tablet active Not Available Not Available Not Available amitriptylin e 25 mg tablet active Not Available Not Available Not Available hydrocodone 7.5 mg-acetamino phen 325 mg tablet 09/28 completed Not Available Not Available Not Available ranitidine 150 mg tablet active Not Available Not Available Not Available buspirone 10 mg tablet active Not Available Not Available No t Available lansoprazole 30 mg capsule,flavio yed release Take 1 capsule twice a day by oral route for 14 days. 05/03 completed Not Available Not Available Not Available Advair Diskus 250 mcg-50 mcg/dose powder for inhalation 09/28 completed Not Available Not Available Not Available gabapentin 300 mg capsule active Not Available Not Available Not Available montelukast 10 mg tablet active Not Available Not Available Not Available alprazolam 2 mg tablet active Not Available Not Available No t Available polyethylene glycol 3350 17 gram/dose oral powder 03/19 completed Not Available Not Available Not Available Q-Tussin 100 mg/5 mL oral liquid 03/19 completed Not Available Not Available Not Available Vitamin D2 1,250 mcg (50,000 unit) capsule active Not Available Not Available Not Available fluticasone propionate 50 mcg/actuatio n nasal spray,suspen eduardo 09/28 completed Not Available Not Available Not Available Ventolin HFA 90 mcg/actuatio n aerosol inhaler active Not Available Not Available Not Available escitalopram 20 mg tablet 09/28 completed Not Available Not Available Not Available Vitamin D3 25 mcg (1,000 unit) tablet active Not Available Not Available Not Available topiramate 50 mg tablet 05/03 completed Not Available Not Available Not Available Flovent Diskus 250 mcg/actuatio n powder for inhalation 09/28 completed Not Available Not Available Not Available Vitals Date Recorded Body height Body mass index (BMI) Body weight Provider Name and Address Organization Details Last Updated DateTime 05/31/2017 160.02 cm 35.8 kg/m2 89965.66 g Vida Michele [place] - [facility] 05/31/2017 13:21:42 Date Recorded Body height Body mass index (BMI) Body weight Provider Name and Address Organization Details Last Updated DateTime 07/07/2017 160.02 cm 36 kg/m2 35098 g Vidaeulalio Bautista [place] [facility] 07/07/2017 13:14:55 Date Recorded Body height Body mass index (BMI) Body weight Provider Name and Address Organization Details Last Updated DateTime 08/09/2017 160.02 cm 35.7 kg/m2 61351.82 g Vida Michele [place] - [facility] 08/09/2017 13:51:49 Date Recorded Body height Body mass index (BMI) Body weight Provider Name and Address Organization Details Last Updated DateTime 09/06/2017 160.02 cm 35.4 kg/m2 01874.47 g Vida Michele [place] [facility] 09/06/2017 14:13:53 Date Recorded Body height Body mass index (BMI) Body weight Provider Name and Address Organization Details Last Updated DateTime 09/27/2017 160.02 cm 35.2 kg/m2 49619.74 g Vida Michele [place] [facility] 09/27/2017 16:38:13 Social History Question Answer Notes LastModified by Organizat ion Details LastModified Time Tobacco Smoking Status Never Smoker Not Available [facility] 07/05/2020 03:13:29 What Is Your Level Of Alcohol Consumption? None [id number] Information not available 07/05/2020 Which Illicit Or Recreational Drugs Have You Used? None [id number] Information not available 07/05/2020 Has Tried [place] Weight Loss Yes Information not available 09/24/2016 Has Tried Atkins Yes Informat ion not available 09/24/2016 Has Tried Slim Fast Yes Information not available 09/24/2016 Has Tried Lean Cuisine Yes Information not available 09/24/2016 Has Tried General Portion Reduction Yes Information no t available 09/24/2016 Has Tried [place] Yes Information not available 09/24/2016 Has Tried Weight Watchers Yes Information not available 09/24/2016 Has Tried Popcorn Diet Yes Information not available 09/24/2016 Sex: Unknown Functional Status None recorded. Mental Status None recorded. Family History Relationship Description Onset Age of this Age Resolved Age Notes LastModified by Organization Details LastModified Time Mother Hypertensive disorder [email or web address] Not available 2016 12:04:53 Father Diabetes mellitus [email or web address] Not available 2016 12:05:02 Medical History Condition Response Coronary Artery Disease N Other Y Gout N Thyroid Disease N Prostate Disease N Bleeding Disorders N Blood disorders N Bowl Obstruction N Urinary Incontinence N Depression Y COPD N Anorexia N Anemia N Colon Polyps N Deep Vein Thrombosis N Kidney disease N Diabetes Y Anxiety Disorder Y Arthritis N Seizure N History of Heart Attack N Pain N Cancer N Stroke N Diverticulitis N Morbid Obesity Y Asthma Y HIV/AIDS N Fecal Incontinence N Sleep Apnea Y High Cholesterol Y GERD/Reflux Y Hepatitis N Liver Disease N Pulmonay disease N Heart Disease N Pulmonary Embolism N PCOS N Hypertension N Gynecological HistoryNo gynecological history recorded. Obstetrics History GPAL:G 0 P 0 0 0 0 Past Encounters Encounter ID Performer Location Encounter Start Date Encounter Closed Date Diagnosis/Indication Diagnosis SNOMED-CT Code Diagnosis ICD10 Code Diagnosis Note [id number] Bell Santiago MD [facility] [address] [address] 09/24/2016 11:43:27 09/24/2016 17:26:04 [id number] Bell Santiago MD [facility] [address] [place] [address] 03/18/2017 13:18:34 03/22/2017 14:14:16 [id number] [facility] [address] [facility] [address] [place] [address] 05/10/2017 10:52:31 05/10/2017 13:31:22 [id number] [facility] [address] [place] [address] 05/31/2017 13:18:28 05/31/2017 14:52:31 [id number] [facility] [address] [address] 07/07/2017 13:12:50 07/07/2017 13:32:15 [id number] [facility] [address] [place] [address] 08/09/2017 13:49:08 08/09/2017 14:05:38 [id number] [facility] [address] [place] [address] 09/06/2017 14:06:42 09/06/2017 14:51:15 [id number] [facility] [address] [place] [address] 09/27/2017 16:30:11 09/27/2017 16:46:38 Health Concerns Section Related Observation LastModified by Organization Detai ls LastModified Time None Recorded Concern Status LastModified by Organization Details LastModified Time None Recorded Advance Directives Directive None Recorded Payers Encounter Date Sequence Insurance Name Policy Number Policy Fernandes Covered Member ID Fernandes Member ID Guarantor Name 05/31/2017 1 [facility] (MEDICAID REPLACEMENT - HMO) [id number] Regina Lemoniciano [id number] Regina Larson 07/07/2017 1 [facility] (MEDICAID REPLACEMENT - HMO) [id number] Regina Larson [id number] Regina Larson 08/09/2017 1 [facility] (MEDICAID REPLACEMENT - HMO) [id number] Regina Lemoniciano [id number] Regina Larson 09/06/2017 1 [facility] (MEDICAID REPLACEMENT - HMO) [id number] Regina Larson [id number] Regina Larson 09/27/2017 1 [facility] [employer] [facility] (MEDICAID REPLACEMENT - HMO) [id number] Regina Lemoniciano [id number] Regina Larson OBGyn Episode No OBEpisode recorded.
--- OUTSIDE RECORDS SUMMARY | 2024-11-02 14:32 | XMS_ITS | Encounter Summary ---
Author Organization [employer] Address [address] [place] [address] Care Team Providers Care Malt House Loader Name Role Phone Simona Ribeiro MD Primary Care Provide r Encounter Details Date Type Department Care Team (Late st Contact Info) Description 10/27/2024 11:15 AM EST Office Visit [facility] MEDICINE [address] [place], [place] [phone] Kezia Patton MD [address] [place], [place] [phone] Androgenic alopecia (Primary Dx) Social History Tobacco Use Types Packs/Day Years Used Date Smoking Tobacco: Never Passive Smoke Exposure: Never Smokeless Tobacco: Never Alcohol Use Standard Drinks/Week Comments Never 0 (1 standard drink = 0.6 oz pur e alcohol) Alcohol Answer Date Recorded Frequency of Alcohol Consumption Not on file 04/27/2024 Average Number of Drinks Not on file 024 Frequency of Binge Drinking Not on file 04/2024 Score 0 04/27/2024 Depression Answer Date Recorded Patient Health Questionnaire-9 Score 15 01/31/2024 Patient Health Questionnaire-9 Score 15 01/31/2024 Last PHQ-9: Questionnaire Data Not on file 0 01/31/2024 Housing Stability Answer Date Recorded What is your housing situation today? I have trinity rahman 01/20/[address] you li ve. Do you have problems with any of the following? None of the above 01/20/2024 Food Insecurity Answer Date Recorded Within the past 12 months, y ou worried that your food would run out before you got money to buy more: Never True 01/20/2024 Within the past 12 months,th e food you bought just didn't last and you didn't have enough money to get more: Never True 10/2023 Transportation Answer Date Recorded In the past 12 months, has l ack of transportation kept you from medical appts, meetings, work or from getting things needed for daily living? No 01/20/2024 Utilities Answer Date Recorded In the past 12 months, has t he electric, gas, oil or water company threatened to shut off services in your home? No 01/20/2024 Depression Answer Date Recorded Patient Health Questionnaire-2 Score 6 01/31/2024 Internet Access Answer Date Recorded Internet Access Q1 Yes 10/20/2024 Internet Access Q2 Not on file 10/20/2024 Comments Unknown Sex and Gender Information Value Date Recorded Sex Assigned at Female 07/20/2022 10:36 AM EDT Legal Sex Female 10:36 AM EDT Gender Identity Female 07/20/2022 10:36 AM EDT Sexual Orientation Choose not to disclose 2021 10:36 AM EDT documented as of this encounter Progress Notes * Kezia Patton MD - 10/27/2024 11:15 AM EST Subjective Patient ID: Regina Grady is a 44 y.o. female who presents for No chief complaint on file.. 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 Review of Systems Objective Physical Exam Constitutional: Appearance: Normal appearance. HENT: Head: Normocephalic and atraumatic. Nose: Nose normal. Eyes: Pupils: Pupils are equal, round, and reactive to light. Pulmonary: Effort: Pulmonary effort is normal. Musculoskeletal: General: Normal range of motion. Cervical back: Normal range of motion. Skin: Comments: Mild decrease density of hair on frontal scalp Scalp free of scaling, inflammation or scarring Neurological: General: No focal deficit present. Mental Status: She is alert. Assessment/Plan Diagnoses and all orders for this visit: Androgenic alopecia Improving partially Continue Minoxidil 2.5 mg every day. Refill sent Add topical minoxidil+Finasteride. documented in this encounter Plan of Treatment Upcoming Encounters Date Type Department Care Team (Late st Contact Info) Description 11/20/2024 9:30 AM EST Office Visit [facility] OPTOMETRY [address] [place] [address] Jessika Mcclure, OD 230 [place] [address] 12/21/2024 3:30 PM EDT Telemedicine [facility] MEDICINE [address] [place] [address] Simona Ribeiro MD [address] [place] [address] 03/07/2025 9:00 AM EDT Office Visit [facility] ADULT DENTAL [address] [place] [address] Nevin Cabezas documented as of this encounter Visit Diagnoses Diagnosis Androgenic alopecia- Primary Other alopecia documented in this encounter Additional Health Concerns Assessment Noted Time PHQ-9 Depression Total Score: 15 01/30/ 024 10:23 AM EDT documented as of this encounter Care Teams Malt House Loader Relationship Specialty Start Date End Date Simona Ribeiro MD [address] [place], [place] [phone] PCP - General Family Medicine 07/21/19 [employer] 02/22/24 documented as of this encounter
--- OUTSIDE RECORDS SUMMARY | 2024-11-02 14:32 | XMS_ITS | Encounter Summary ---
Author Organization [employer] Address [address] [place] [address] Care Team Providers Care Squeegee Finisher Name Role Phone Simona Ribeiro MD Primary Care Provide r Encounter Details Date Type Department Care Team (Latest Contact Info) Description 10/27/2024 Travel Social History Tobacco Use Types Packs/Day Years [...] AM EDT documented as of this encounter Plan of Treatment Upcoming Encounters Date Type Department Care Team (Late st Contact Info) Description 11/20/2024 9:30 AM EST Office Visit [facility] OPTOMETRY [address] [place] [address] Jessika Mcclure, OD 230 [place] [address] 12/21/2024 3:[address] [facility] MEDICINE [address] [place] [address] Simona Ribeiro MD [address] [place] [address] 03/07/2025 9:00 AM EDT Office Visit [facility] ADULT DENTAL [address] [place] [address] Nevin Cabezas documented as of this encounter Visit Diagnoses Not on filedocumented in this encounter Additional Health Concerns Assessment Noted Time PHQ-9 Depression Total Score: 15 024 10:23 AM EDT documented as of this encounter Care Teams Squeegee Finisher Relationship Specialty Start Date End Date Simona Ribeiro MD [address] [place] [address] PCP - General Family Medicine 07/21/19 [employer] 02/22/24 documented as of this encounter
--- OUTSIDE RECORDS SUMMARY | 2024-11-02 14:32 | XMS_ITS | Encounter Summary ---
Author Organization [employer] Address [address] [place] [address] Care Team Providers Care Deputy United [place] Marshal Name Role Phone Simona Ribeiro MD Primary Care Provide r Encounter Details Date Type Department Care Team (Latest Contact Info) Description 11/02/2024 Travel Social History Tobacco Use Types Packs/Day [...] Answer Date Recorded Patient Health Questionnaire-9 Score 22 11/02/2024 Patient Health Questionnaire-9 Score 22 11/02/2024 Last PHQ-9: Questionnaire Data Not on file 0 11/02/2024 Housing Stability Answer Date Recorded What is [...] Answer Date Recorded Patient Health Questionnaire-2 Score 4 11/02/2024 Internet Access Answer Date Recorded Internet Access [...] Description 11/20/2024 9:30 AM EST Office Visit [facility] OPTOMETRY [address] [place] [address] Jessika Mcclure, OD [address] [place] [address] 12/21/2024 3:30 PM EDT Telemedicine [facility] MEDICINE [address] [place] [address] Simona Ribeiro MD [address] [place] [address] 03/07/2025 9:00 AM EDT Office Visit [facility] ADULT DENTAL [address] [place] [address] Nevin Cabezas documented as of this encounter Visit Diagnoses Not on filedocumented in this encounter Additional Health Concerns Assessment Noted Time PHQ-9 Depression Total Score: 22 025 1:30 PM EST documented as of this encounter Care Teams Deputy United [place] Marshal Relationship Specialty Start Date End Date Simona Ribeiro MD [address] [place] [address] PCP - General Family Medicine 07/21/19 [employer] 02/22/24 documented as of this encounter
--- OUTSIDE RECORDS SUMMARY | 2024-11-02 14:32 | XMS_ITS | Encounter Summary ---
Author Organization [employer] Address [address] [facility] 7t [place] [address] Care Team Providers Care Vessel Slagman Name Role Phone Simona Ribeiro MD Primary Care Provide r Reason for Visit * Reason Comments Med Refill Encounter Details Date Type Department Care Team (Late Contact Info) Description 12/22/2022 Refill [facility] MEDICINE [address] [place], [place] [phone] Rishabh Mcnally MD 230 [place] [address] Vaginal candidiasis Social History Tobacco Use Types Packs/Day Years [...] suspected to have Coronavirus/COVID-19? No / Unsure 12/22/2022 11:04 AM EDT documented as of this encounter Plan of Treatment Upcoming Encounters Date Type Department Care Team (Late Contact Info) Description 11/20/2024 9:30 AM EST Office Visit [facility] OPTOMETRY [address] [place], [place] [phone] Jessika Mcclure, OD [address] [place] [address] 12/21/2024 3:30 PM EDT Telemedicine [facility] MEDICINE [address] [place] [address] Simona Ribeiro MD [address] [place] [address] 03/07/2025 9:00 AM EDT Office Visit [facility] ADULT DENTAL [address] [place] [address] Nevin Cabezas documented as of this encounter Visit Diagnoses Diagnosis Vaginal candidiasis Candidiasis of vulva and vagina documented in this encounter Care Teams Vessel Slagman Relationship Specialty Start Date End Date Simona Ribeiro MD [address] [place] [address] PCP - General Family Medicine 07/21/19 [employer] 02/22/24 documented as of this encounter
--- OUTSIDE RECORDS SUMMARY | 2024-11-02 14:32 | XMS_ITS | Encounter Summary ---
Author Organization [employer] Address [address] [facility] [address] [place] [address] Care Team Providers Care Car Construction Superintendent Name Role Phone Simona Ribeiro MD Primary Care Provide r Reason for Referral * Consultation (Routine) - Pending Review Specialty Diagnoses / Procedures Referred By Maryann beauchamp Referred To Contact Hand Surgery Diagnoses Right hand pain Simona Ribeiro MD [address] [place] [phone] Phone: tel: fax: Referral ID Status Reason Start Date Expiration Date Visits Requested Visits Authorized [id number] Pending Review Specialty Services Required 11/02/2024 11/02/2025 1 1 Encounter Details Date Type Department Care Team (Late st Contact Info) Description 11/02/2024 1:45 PM EST Office Visit [facility] MEDICINE [address] [place] [phone] Simona Ribeiro MD [address] [place] [phone] Migraine without aura, not refractory (Primary Dx); Right hand pain; Seizure disorder (CMS/HCC); Dietary counseling; Exercise counseling; Class 1 obesity with serious comorbidity and body mass index (BMI) of 31.0 to 31.9 in adult, unspecified obesity type Social History Tobacco Use Types Packs/Day Years [...] AM EDT documented as of this encounter Last Filed Vital Signs Vital Sign Reading Time Taken Comments Blood Pressure 118/75 11/02/2024 1:19 PM EST Pulse 65 11/02/2024 1:19 PM EST Temperature 35.1 ??C (95.2 ??F) 11/02/2024 1:19 PM ES T Respiratory Rate 14 11/02/2024 1:19 PM EST Oxygen Saturation - - Inhaled Oxygen Concentration - - Weight 80.6 kg (177 lb 9.6 oz) 11/02/2024 1:19 P M EST Height 160 cm (5' 3 ) 11/02/2024 1:19 PM EST Body Mass Index 31.46 11/02/2024 1:19 PM EST documented in this encounter Plan of Treatment Upcoming Encounters Date Type Department Care Team (Late st Contact Info) Description 11/20/2024 9:30 AM EST Office Visit [facility] OPTOMETRY [address] [place] [address] Ren, Jessika, OD [address] [place] [address] 12/21/2024 3:30 PM EDT Telemedicine [facility] MEDICINE [address] [place] [address] Simona Ribeiro MD [address] [place] [address] 03/07/2025 9:00 AM EDT Office Visit [facility] ADULT DENTAL [address] [place] [address] Nevin Cabezas Scheduled Orders Name Type Priority Associated Diagnoses Orde r Schedule XR Hand 3+ Views Right Imaging Routine Right hand pain Expected: 11/02/2024, Expires: 11/02/2025 Scheduled Referrals Name Type Priority Associated Diagnoses Orde r Schedule Referral to Hand Surgery Outpatient Referral Routine Right hand pain Expected: 11/02/2024 (Approximate), Expires: 11/02/2025 documented as of this encounter Visit Diagnoses Diagnosis Migraine without aura, not refractory- Primary Right hand pain Pain in soft tissues of limb Seizure disorder (CMS/HCC) Unspecified epilepsy without mention of intractable epilepsy Dietary counseling Dietary surveillance and counseling Exercise counseling Class 1 obesity with serious comorbidity and body mass index (BMI) of 31.0 to 31.9 in adult, unspecified obesity type documented in this encounter Additional Health Concerns Assessment Noted Time PHQ-9 Depression Total Score: 22 025 1:30 PM EST documented as of this encounter Care Teams Car Construction Superintendent Relationship Specialty Start Date End Date Simona Ribeiro MD [address] [place] [address] PCP - General Family Medicine 07/21/19 [employer] 02/22/24 documented as of this encounter
--- OUTSIDE RECORDS SUMMARY | 2024-11-02 14:32 | XMS_ITS | Encounter Summary ---
Author Organization [employer] Address [address] [facility] 7t [place] [address] Care Team Providers Care Team Manager Name Role Phone Simona Ribeiro MD Primary Care Provide r Reason for Visit * Reason Comments Med Refill Encounter Details Date Type Department Care Team (Late st Contact Info) Description 10/30/2024 Refill [facility] MEDICINE [address] [place], [place] [phone] Simona Ribeiro MD [address] [place] [address] Prediabetes Social History Tobacco Use Types Packs/Day Years [...] Office Visit [facility] OPTOMETRY [address] [place] [address] Jessika Mcclure, OD [address] [place] [address] 12/21/2024 3:30 PM EDT Telemedicine [facility] MEDICINE [address] [place] [address] Simona Ribeiro MD [address] [place] [address] 03/07/2025 9:00 AM EDT Office Visit [facility] ADULT DENTAL [address] [place] [address] Nevin Cabezas documented as of this encounter Visit Diagnoses Diagnosis Prediabetes Other abnormal glucose documented in this encounter Additional Health Concerns Assessment Noted Time PHQ-9 Depression Total Score: 15 024 10:23 AM EDT documented as of this encounter Care Teams Team Manager Relationship Specialty Start Date End Date Simona Ribeiro MD [address] [place] [address] PCP - General Family Medicine 07/21/19 [employer] 02/22/24 documented as of this encounter
--- OUTSIDE RECORDS SUMMARY | 2024-11-02 14:32 | XMS_ITS | Encounter Summary ---
Author Organization [employer] Address [address] [facility] [address]t [place] [address] Care Team Providers Care Claims Analyst Name Role Phone Simona Ribeiro MD Primary Care Provide r Reason for Visit * Reason Comments Pre-visit Planning SDOH screening negat ani and tobacco screening negative Encounter Details Date Type Department Care Team ([facility] Contact Info) Description 10/20/2024 Patient Outreach [facility] MEDICINE [address] [place], [place] [phone] Simona Ribeiro MD [address] [place], [place] [phone] Pre-visit Planning (SDOH screening negative and tobacco screening negative) Social History Tobacco Use Types Packs/Day Years [...] as of this encounter Progress Notes * Dilcia Shah - 10/20/2024 9:18 AM EST CC Dilcia placed successful outbound call to patient for pre-visit planning. Patient name and confirmed. Patient confirms appt date and time, and has transportation. Biggest concern for appointment at this time is none Patient advised to bring to appointment a photo id and insurance card. Appropriate screenings completed in anticipation of appointment. documented in this encounter Plan of Treatment Upcoming Encounters Date Type Department Care Team (Late st Contact Info) Description 11/20/2024 9:30 AM EST Office Visit [facility] OPTOMETRY [address] [place] [address] Jessika Mcclure, OD [address] [place] [address] 12/21/2024 3:30 PM EDT Telemedicine [facility] MEDICINE [address] [place] [address] Simona Ribeiro MD [address] [place] [address] 03/07/2025 9:00 AM EDT Office Visit [facility] ADULT DENTAL [address] [place] [address] Neivn Cabezas documented as of this encounter Visit Diagnoses Not on filedocumented in this encounter Additional Health Concerns Assessment Noted Time PHQ-9 Depression Total Score: 15 024 10:23 AM EDT documented as of this encounter Care Teams Claims Analyst Relationship Specialty Start Date End Date Simona Ribeiro MD [address] [place], [place] [phone] PCP - General Family Medicine 07/21/19 [employer] 02/22/24 documented as of this encounter
--- OUTSIDE RECORDS SUMMARY | 2024-11-02 14:32 | XMS_ITS | Data Portability ---
Author Organization [place] - [facility] S urgical Oncology, [facility] Address [address] [place] [address] Care Team Providers Care House Player Name Role Phone MORRIS DOUGHERTY Referring Provider Assessment No assessment recorded. Plan of Treatment Reminders Order Date Submit Date Provider Last Modified By Organization Details Last Modified Time Details Appointments None recorded. Lab urinalysis , dipstick 2014 015 [email or web address] Not available 5 11:50:50 Referral None recorded. Procedures None recorded. Surgeries None recorded. Imaging None recorded. Medication Orders None recorded. Patient TargetsNo targets recorded. Patient Instructions Encounter Date Encounter Id Patient Instructions Last Modified By Organization Details Last Modified Time 10/29/[id number] 3 mm right renal stone with no obstructions- no rx needed motrin prn ur freq- trial with Detrol La 4 mg qd f/u in 4-6 wks or prn plan verbalized and pt agrees [email or web address] Not available 10/29/2014 11:50:50 Reason for Referral None Reported. Results Created Date Observation Date Name Description Value Unit Range Abnormal Flag Note LastModifiedBy Organization Detail LastModifiedTime 10/29/19 15 10/29/2014 urina lysis , dipst ick Leukocytes Trace Not Available [facility] [place] 10/29/2014 11:49:34 10/29/1910/29/2014 urina lysis , dipst ick Nitrite negati ve Not Available [facility] [place] 10/29/2014 11:49:34 10/29/19 15 10/29/2014 urina lysis , dipst ick Blood Negati ve Not Available [facility] [place] 10/29/2014 11:49:34 10/29/19 15 10/29/2014 urina lysis , dipst ick Glucose 100 Not Available [facility] [place] 10/29/2014 11:49:34 10/29/19 15 imagi ng/di agnos tic resul t No observ ation record ed. [email or web address] Not Available 2014 17:11:41 Result Notes None recorded. Problems Name Problem SNOMED Code Status Onset Date Resolution Date Notes Provider Name and Address Organization Details Recorded Time Kidney stone 61807305 Active Alen Martinez M.D. [address] [place] [address], [address] [place] [address], [facility] 5 11:50:50 Increased frequency of urination 964142873 Active Alen Martinez M.D. [address] [place] [address], [address] [place] [address], [facility] 5 14:00:18 Problem Notes None recorded. Procedures Surgical History Date Name Laterality Status Provider Name and Address Organization Details Recorded Time tubiligation completed Alen Martinez M.D. [address] [place], [address], [facility] 10/29/2014 11:18:08 Imaging Results Imaging Date Name Status LastModified by Organiz ation Details LastModified Time 10/29/2014 imaging/diag nostic result completed [email or web address] Information not available 12/21/2014 17:11:41 Procedure Notes None recorded. Medical Equipment None Reported. Allergies Allergen ID Allergen Name Allergen Category Reaction Reaction Severity Criticality Documentation Date Start Date Code Code System Note Provider Name and Address Organization Details Recorded Time 32882 Product containin g penicilli n and antibioti c (product) medicatio n Not available Not available Not available 10/29/2014 57168 05 SNOMED Not Available Not Available Not Available 32437 aspirin medicatio n Not available Not available Not available 10/29/2014 1191 RxNorm Not Available Not Available Not Available Medications Name Sig Start Date Stop Date Status Note LastModified by Organization Details LastModified Time famotidine 40 mg tablet TK ONE T PO QAM BEFORE BREAKFAST active Not Available Not Available No t Available peg-electroly te solution 420 gram oral solution MIX WITH WATER AND DRINK ONE 8 OUNCE GLASS Q 15 MINUTES STARTING AT TIME DIRECTED active Not Available Not Available No t Available amitriptyline 25 mg tablet TK 1 T PO QHS active Not Available Not Available No t Available magnesium citrate oral solution DRINK DIRECTED ORALLY FOR 1 DOSE active Not Available Not Available No t Available bisacodyl 5 mg tablet,delaye d release TK 4 TS PO 1 DOSE AT TIME DIRECTED active Not Available Not Available No t Available ergocalcifero l (vitamin D2) 1,250 mcg (50,000 unit) capsule TK 1 C PO Q WEEK active Not Available Not Available No t Available oxybutynin chloride 5 mg tablet TK 1 T PO BID active Not Available Not Available No t Available Vitals Date Recorded Body height Body mass index (BMI) Heart rate Body weight Systolic blood pressure Diastolic blood pressure Provider Name and Address Organization Details Last Updated DateTime 5 160.02 cm 35.4 kg/m2 60 /min 57970.4 74 g 110 mm[Hg] 78 mm[Hg] Alen Martinez M.D. [address] [place] [address], [phone] [facility] 5 11:20:37 Social History None recorded. Functional Status None recorded. Mental Status None recorded. Family History Nothing Reported. Medical History Condition Response Depression Y Asthma Y Gynecological HistoryNo gynecological history recorded. Obstetrics History GPAL:G 0 P 0 0 0 0 Past Encounters Encounter ID Performer Location Encounter Start Date Encounter Closed Date Diagnosis/Indication Diagnosis SNOMED-CT Code Diagnosis ICD10 Code Diagnosis Note [id number] _ [facility] [address] [facility] [place] [address] 10/29/2014 10:43:42 10/29/2014 11:21:31 Kidney stone 33747488 Increased frequency of urination 112527842 Health Concerns Section Related Observation LastModified by Organization Detai ls LastModified Time None Recorded Concern Status LastModified by Organization Details LastModified Time None Recorded Advance Directives Directive None Recorded Payers Encounter Date Sequence Insurance Name Policy Number Policy Fernandes Covered Member ID Fernandes Member ID Guarantor Name 10/29/2014 1 [place] [employer] Regina Taveras [id number] Regina Larson Notes Date Note Type Note Provider Name and Address Organization Details Recorded Time 10/29/2014 text/html pt in the er in 08/2014- CT- occ mild right flank pain no ur complaints nocturia x 4-5, ur freq q 2h no hematuria or dysuria no ur stress incontinence occ urgency Alen Martinez M.D. [address] [place], [address], [facility] 10/29/2014 11:51:31 OBGyn Episode No OBEpisode recorded.
--- OUTSIDE RECORDS SUMMARY | 2024-11-02 14:32 | XMS_ITS | Clinical Summary ---
Author Organization [facility] Address [address] [place] [address] Care Team Providers Care Caterpillar Mechanic Name Role Phone Unavailable Primary Care Provider Unavailabl e Source Comments PLEASE NOTE, if this patient is a minor, it may be UNLAWFUL to discuss sensitive information that is contained in these records (such as FAMILY PLANNING, MENTAL HEALTH or SUBSTANCE ABUSE) with the minor patient's parent or other person without the patient's specific authorization.[facility] Allergies Active Allergy Reactions Criticality Noted Date Comments Aspirin 07/12/2018 Crawfish (Crustaceans) 07/12/2018 Penicillinase Medium Other reaction(s): Other Penicillins Anaphylaxis 07/12/2018 Medications albuterol sulfate (ACCUNEB) 0.63 mg/3 mL nebulizer solutionIndication s:Routine general medical examination at a health care facility,Need for vaccination,Depres sive disorder albuterol sulfate 0.63 mg/3 mL solution for nebulization use 1 ampule as needed Active albuterol sulfate (PROVENTIL) 2.5 mg /3 mL (0.083 %) nebulizer solutionIndication s:Routine general medical examination at a health care facility,Need for vaccination,Depres sive disorder albuterol sulfate 2.5 mg/3 mL (0.083 %) solution for nebulization Active albuterol sulfate (VENTOLIN HFA) 90 mcg/actuation inhalerIndications :Asthma, unspecified asthma severity, unspecified whether complicated, unspecified whether persistent Inhale 2 Puffs into the lungs every 4 (four) hours as needed for shortness of breath or wheezing 1 Inhaler 2 07/12/20 18 Active cholecalciferol, vitamin D3, (VITAMIN D3) 50,000 unit capsuleIndications :Routine general medical examination at a health care facility,Need for vaccination,Depres sive disorder Take 1 Cap by mouth once a week 30 Cap 3 12/10/19 19 Active busPIRone (BUSPAR) 10 mg tabletIndications: Depressive disorder Take 1 Tab by mouth 2 (two) times daily 60 Tab 2 04/20/20 19 Active atorvastatin (LIPITOR) 20 mg tabletIndications: Mixed hyperlipidemia Take 1 Tab by mouth once daily 90 Tab 3 04/20/20 19 Active bisacodyl (DULCOLAX) 5 mg EC tabletIndications: Depressive disorder Take 1 Tab by mouth once daily as needed for constipation 60 Tab 3 04/20/20 19 Active citalopram (CELEXA) 20 mg tabletIndications: Depressive disorder Take 1 Tab by mouth once daily 90 Tab 2 04/20/20 19 Active famotidine (PEPCID) 40 mg tabletIndications: Chronic gastritis, presence of bleeding unspecified, unspecified gastritis type Take 1 Tab by mouth once daily Before breakfast 90 Tab 3 04/20/20 19 Active topiramate (TOPAMAX) 50 mg tabletIndications: Migraine without status migrainosus, not intractable, unspecified migraine type Take 1 Tab by mouth 2 (two) times daily 90 Tab 2 04/20/20 19 Active acetaminophen (TYLENOL) 500 mg tabletIndications: Chronic midline low back pain with sciatica, sciatica laterality unspecified Take 1 Tab by mouth every 6 (six) hours as needed for pain 60 Tab 2 04/20/20 19 Active omeprazole (PRILOSEC) [address] capsuleIndications :Depressive disorder,Chronic gastritis, presence of bleeding unspecified, unspecified gastritis type Take 1 Cap by mouth every morning 90 Cap 3 04/20/20 19 Active mometasone-formote rol (DULERA) 100-5 mcg/actuation inhalerIndications :Moderate persistent asthma, unspecified whether complicated Inhale 2 Puffs into the lungs 2 (two) times daily Active montelukast (SINGULAIR) 10 mg tabletIndications: Moderate persistent asthma, unspecified whether complicated Take 10 mg by mouth nightly at bedtime Active SUMAtriptan succinate (IMITREX) 100 mg tabletIndications: Migraine without status migrainosus, not intractable, unspecified migraine type Take 1 Tab by mouth once daily as needed May repeat in 2 hours if migraine is not subsided Active albuterol sulfate (VENTOLIN HFA) 90 mcg/actuation inhalerIndications :Moderate persistent asthma, unspecified whether complicated Take 2 Puffs by mouth 3 to 4 (three to four) times daily as needed Active blood-glucose meter monitoring kitIndications:Pre -diabetes once daily Freestyle Lite. Lifetime. Dx:R73.03. To check blood sugar daily as discussed and prn for hyperglycemia. 1 Each 04/20/20 19 Active blood sugar diagnostic stripsIndications: Pre-diabetes 1 Strip once daily Freestyle Lite. Lifetime. Dx:R73.03. To check blood sugar daily as discussed and prn for hyperglycemia. 100 Each 2 04/20/20 19 Active lancets (FREESTYLE LANCETS) 28 gaugeIndications:P re-diabetes once daily Freestyle Lite. Dx:R73.03. To check blood sugar daily as discussed and prn for hyperglycemia. 100 Each 2 04/20/20 19 Active fluticasone propion-salmeterol (AIRDUO RESPICLICK) 232-14 mcg/actuation aepbIndications:Mo derate persistent asthma, unspecified whether complicated Inhale 1 Inhalation into the lungs 2 (two) times daily 1 Each 2 05/01/20 19 Active Active Problems Problem Noted Date Diagnosed Date Allergic rhinitis 04/20/2019 Dysphagia 04/20/2019 Hyperuricemia 04/20/2019 Pain in lower limb 04/20/2019 Esophagitis 04/20/2019 Hyperlipidemia 04/20/2019 Hypoxemia 11/26/2018 Overview (11/26/2018): Sleep related Gastroesophageal reflux disease without esophagi tis 08/24/2018 Asthma 07/12/2018 Migraine 07/12/2018 Depressive disorder 07/12/2018 Chronic back pain 07/12/2018 Constipation 07/12/2018 Diverticular disease 07/12/2018 Dizziness 07/12/2018 Gastritis 07/12/2018 Increased frequency of urination 07/12/2018 Kidney stone 07/12/2018 Petechial rash 07/12/2018 Vitamin D deficiency 07/12/2018 Sciatica 07/12/2018 Obesity with body mass index 30 or greater 03/18 Sleep apnea 03/18/2017 Hypercholesterolemia 03/18/2017 Obesity 03/18/2017 Resolved Problems Problem Noted Date Diagnosed Date Resolved Date Upper respiratory infection 04/20/2019 05/09/2021 Acute pharyngitis 07/12/2018 04/20/2019 Immunizations Name Administration Dates Next Due Flu, Preservative Free 12/09/2018 PNEUMOCOCCAL POLYSACCHARIDE PPV23 09/29/2018 TDAP 07/12/2018 Varicella, Live Vaccine 12/09/2018,08/24/2018 Family History Medical History Relation Name Comments Cancer Father Cancer Maternal Grandfather Relation Name Status Comments Brother Alive 8 brothers Father Maternal Grandfather Mother Alive Sister Alive 2 sisters Social History Tobacco Use Types Packs/Day Years Used Date Smoking Tobacco: Never Smokeless Tobacco: Never Alcohol Use Standard Drinks/Week Comments No 0 (1 standard drink = 0.6 oz pur e alcohol) Social Connections Answer Date Recorded Social Connections and Isolation 0 05/15/2019 Financial Resource Strain Answer Date R ecorded Financial Resource Strain 0 2018 Stress Answer Date Recorded Stress 0 05/15/2019 Physical Activity Answer Date Recorded Physical Activity 0 05/15/2019 Food Insecurity Answer Date Recorded Food 0 05/15/2019 Transportation Needs Answer Date Record ed Transportation 0 05/15/2019 Housing Stability Answer Date Recorded Housing 0 05/15/2019 Safety and Environment Answer Date Aniket rded Safety 0 05/15/2019 Utilities Answer Date Recorded Utilities 0 05/15/2019 Employment Answer Date Recorded Employment 0 05/15/2019 Comments No Sex and Gender Information Value Date Recorded Sex Assigned at Female 07/12/2018 7:35 PM PDT Legal Sex Female 9:01 AM PDT Gender Identity Female 07/12/2018 7:35 PM PDT Sexual Orientation Straight 12/09/2018 6: 48 AM PDT Occupation Industry Job Start Date Job End Date Disabled Not on file Not on file Not on file Last Filed Vital Signs Vital Sign Reading Time Taken Comments Blood Pressure 112/80 04/20/2019 10:15 AM EDT Pulse 89 04/20/2019 10:15 AM EDT Temperature 36.1 ??C (97 ??F) 04/20/2019 10:15 AM EDT Respiratory Rate 16 12/09/2018 9:45 AM EDT Oxygen Saturation 97% 04/20/2019 10:15 AM EDT Inhaled Oxygen Concentration - - Weight 94.3 kg (208 lb) 04/20/2019 10:15 AM EDT Height 157.5 cm (5' 2 ) 12/09/2018 9:45 AM EDT Body Mass Index 38.04 12/09/2018 9:45 AM EDT Plan of Treatment Not on file Insurance [employer] [facility] [place] [address]
--- OUTSIDE RECORDS SUMMARY | 2024-11-02 14:32 | XMS_ITS | Clinical Summary ---
Author Organization [facility] it Address [address] [place] [address] Care Team Providers Care Tool Operator Name Role Phone Cecilia Zee CHIEF TECHNOLOGY OFFICER Primary Care Provider [phone] Surgical History Surgery Date Site/Laterality Comments OVARIAN CYST REMOVAL PROCEDURE: NC OVARIAN CYSTECTOMY UNI/BI HYSTERECTOMY PROCEDURE: HISTORICAL HYSTERECTOMY BREAST REDUCTION PROCEDURE: NC BREAST REDUCTION OTHER SURGICAL HISTORY 2007 PROCEDURE: NC PUNCTURE ASPIRATION CYST BREAST EACH ADDL CYST; COMMENT: 3lumps, pre-cancer per pt report TUBAL LIGATION PROCEDURE: HISTORICAL TUBAL LIGATION Medical History Medical History Date Comments Allergic rhinitis DX:Allergic rh initis GERD (gastroesophageal reflux disease) DX:GERD (gastroesophageal reflux disease) Sciatica DX:Sciatica Sleep apnea DX:Sleep apnea Sciatic pain DX:Sciatic pain Gastritis DX:Gastritis Depressive disorder DX:Depressiv e disorder Constipated DX:Constipated Diverticular disease DX:Divertic ular disease Hyperuricemia DX:Hyperuricemia Hyperlipidemia DX:Hyperlipidemi a Family History Medical History Relation Name Comments Prostate cancer Father Breast cancer Paternal Grandmother Relation Name Status Comments Father Paternal Grandmother Social History Tobacco Use Types Packs/Day Years Used Date Smoking Tobacco: Never Smokeless Tobacco: Never Alcohol Use Standard Drinks/Week Comments No 0 (1 standard drink = 0.6 oz pur e alcohol) Comments Unknown Sex and Gender Information Value Date Recorded Sex Assigned at Not on file Legal Sex Female 4:48 PM EST Gender Identity Not on file Sexual Orientation Not on file Obstetrics History Plan of Treatment Health Maintenance Due Date Last Done Comments DTaP,Tdap,and Td Vaccines (1 - Tdap) 1999 Hepatitis B Vaccines (1 of 3 - 19+ 3-dose series) 1999 Breast Cancer Screening 07/09/2021 07/09/2019 Cervical Cancer Screening: P ap Smear 07/06/2022 07/06/2019 Depression Screening 04/18/2024 HIV Screening 04/18/2024 Hepatitis C Screening 04/18/2024 Social Influencers of Health Screening 04/18/2024 COVID-19 Vaccine ( - 2023-2 5 season) 2024 Influenza Vaccine (#1) 2024 HIB Vaccines Aged Out No longer eligi ble based on patient's age to complete this topic HPV Vaccines Aged Out No longer eligi ble based on patient's age to complete this topic Hepatitis A Vaccines Aged Out No long er eligible based on patient's age to complete this topic IPV Vaccines Aged Out No longer eligi ble based on patient's age to complete this topic MMR Vaccines Aged Out No longer eligi ble based on patient's age to complete this topic Meningococcal ACWY Vaccine Aged Out N o longer eligible based on patient's age to complete this topic Meningococcal B Vacine Aged Out No lo nger eligible based on patient's age to complete this topic Pneumococcal Vaccine: Pediat rics (0 to 5 Years) and At-Risk Patients (6 to 64 Years) Aged Out No longer eligi ble based on patient's age to complete this topic RSV Immunization Patients Un mp 20 months Aged Out No longer eligible b ased on patient's age to complete this topic Varicella Vaccines Aged Out No longer eligible based on patient's age to complete this topic Procedures Procedure Name Priority Date/Time Associated Diagnosis Comments DAVIAN SCREENING DIGITAL Routine 07/09/2019 4:44 PM EDT Encounter for screening mammogram for malignant neoplasm of breast PAP SMEAR Routine 07/06/2019 from Last 3 Months or Most Recently Relevant to Health Maintenance Results * DAVIAN SCREENING DIGITAL (07/09/2019 4:44 PM EDT) Anatomical Region Laterality Modality Mammography 07/07/2019 9:41 AM EDT Narrative 07/09/2019 4:44 PM EDT [facility] Diagnostic Imaging Department [address] [place], [place] [id number] Patient: ??ROBERTO ELIZALDE ?/Age/Sex: 1980 - 39 - F Unit#: ??[id number] ? Location/Status: ??SPDIMAM/PRE CLI ? Mnemonic/Ordering Site: ??DIGSC/SPMAM Ordering Physician: ??REI DELACRUZ CNM [facility] Screening Digital - 07/08/19853 EXAM: [facility] Screening Digital EXAM DATE AND TIME: 07/08/2019 9:20 AM HISTORY: ??Screening. Reduction mammoplasty in 2007. Paternal grandmother had breast carcinoma. COMPARISON: ??Previous mammograms done in [place] are not available per the patient. TECHNIQUE: CC and MLO views of both breasts were obtained using full field digital mammography. Bilateral digital breast tomosynthesis was performed in the MLO projection. Computer aided detection with the [employer] 7.2-H was employed. TISSUE DENSITY: a. The breasts are almost entirely fatty. FINDINGS: Reduction mammoplasty sequelae are noted. No suspicious masses, grouped microcalcifications, or areas of architectural distortion are seen. There are several smooth round willy like calcifications bilaterally and a few benign rim calcifications, considered benign. A few dermal calcifications are present. The vascularity is unremarkable. IMPRESSION: No mammographic evidence of malignancy is seen. A negative mammogram in the presence of a clinically suspicious palpable abnormality does not preclude the possibility of malignancy or alter the indications for biopsy. BI-RADS: ??Category 2: Benign RECOMMENDATION(S): 1: Routine screening mammogram BILATERAL in 1 year. 15043, 92293 3342F, 7025F Dictating Physician: ??ALIS POWER MD Electronically Signed by: ??ALIS POWER MD Dic Date/Time: ??07/09/191642 Sign date/Time: ??07/09/191643 Procedure Note Alis Power - 09/08/2022 [facility] Diagnostic Imaging Department [address] [place] [id number] Patient: ROBERTO ELIZALDE /Age/Sex: 1980 - 39 - F Unit#: [id number] Location/Status: SPDIMAM/PRE CLI Mnemonic/Ordering Site: DIGCT/[facility] Ordering Physician: REI DELACRUZ CNM [facility] Screening Digital - 07/08/19 - 0854 EXAM: [facility] Screening Digital EXAM DATE AND TIME: 07/08/2019 9:20 AM HISTORY: Screening. Reduction mammoplasty in 2007. Paternal grandmotherhad breast carcinoma. COMPARISON: Previous mammograms done in [place] are not available perthe patient. TECHNIQUE: CC and MLO views of both breasts were obtained using fullfield digital mammography. Bilateral digital breast tomosynthesis was performedin the MLO projection. Computer aided detection with the [employer] 7.2-Think2as employed. TISSUE DENSITY: a. The breasts are almost entirely fatty. FINDINGS: Reduction mammoplasty sequelae are noted. No suspicious masses, grouped microcalcifications, or areas ofarchitectural distortion are seen. There are several smooth round willy likecalcifications bilaterally and a few benign rim calcifications, considered benign. A fewdermal calcifications are present. The vascularity is unremarkable. IMPRESSION: No mammographic evidence of malignancy is seen. A negative mammogram in the presence of a clinically suspicious palpable abnormality does not preclude the possibility of malignancy or alter the indications for biopsy. BI-RADS: Category 2: Benign RECOMMENDATION(S): 1: Routine screening mammogram BILATERAL in 1 year. 21149, 60809 3342F, 7025F Dictating Physician: ALIS POWER MD Electronically Signed by: ALIS POWER MD Dic Date/Time: 07/09/19 1643 Sign date/Time: 07/09/19 1644 Rei Delacruz CNM IMG BI PROCEDURES Final Resul t * Pap smear (07/06/2019) 07/06/2019 Narrative HISTORICAL TESTING LAB RESULTING AGENCY - 07/10/2019 1:05 PM EDT [id number] THINPREP PAP, IMAGED: NEGATIVE FOR SQUAMOUS INTRAEPITHELIAL LESION AND MALIGNANCY . CHANI HOLCOMB(ASCP) (CASE ELECTRONICALLY SIGNED 07 10 2019) RESULT OF APTIMA HIGH RISK HPV ASSAY: HIGH RISK HPV: ??NEGATIVE (SEROTYPES 16,18,31,33,35,39,45,51,52,56,58,59,66,68) COMPLETED ON 2019-07-07 ADEQUACY: SATISFACTORY ENDOCERVICAL/TRANSFORMATION ZONE COMPONENT PRESENT. SOURCE: THINPREP PAP HPV ANY DX: ??REFLEX 16 AND 18, CERVICAL, IMAGED CLINICAL INFORMATION: HPV ANY DIAGNOSIS. HYSTERECTOMY WITH CERVICAL STUMP IN PLACE, PAP HX UNKNOWN [Z12.4, Z01.419] Rei Delacruz CNM LAB CYTOLOGY ORDERABLES Final Result HISTORICAL TESTING LAB RESULTING AGENCY from Last 3 Months or Most Recently Relevant to Health Maintenance Care Teams Tool Operator Relationship Specialty Start Date End Date Cecilia Zee FNP [address] [place] [address] PCP - General Internal Medicine 04/27/19
--- OUTSIDE RECORDS SUMMARY | 2024-11-02 14:32 | XMS_ITS | Encounter Summary ---
Author Organization [facility] Address [address] [place] [address] Care Team Providers Care Consulting Senior Practice Director Name Role Phone Simona Ribeiro MD Primary Care Provide r Encounter Details Date Type Department Care Team (Late st Contact Info) Description 10/25/2024 Telephone [facility] ADULT DENTAL [address] [place], [place] [phone] Leandro Nivia [address] [place] [address] Social History Tobacco Use Types Packs/Day Years [...] AM EDT documented as of this encounter Miscellaneous Notes * Telephone Encounter - Hunter Degroot - 10/25/2024 2:51 PM EST Spoke with Regina regarding her concern from her last visit with nivia. Pt stated Nivia was talking a lot during her visit and it was not Dental educational. Nivia was talking about her and the provider personal life she felt she was her therapist. I explained to Regina that I would have her concern addressed and we have move her next appointment for her to [facility]. I also stated to her if she needed any translation that we have access to translators. Pt was happy with the call and is looking to have a good experience with [facility]. documented in this encounter Plan of Treatment Upcoming Encounters Date Type Department Care Team (Late st Contact Info) Description 11/20/2024 9:30 AM EST Office Visit [facility] OPTOMETRY [address] [place] [address] Jessika Mcclure, OD [address] [place] [address] 12/21/2024 3:30 PM EDT Telemedicine [facility] MEDICINE [address] [place] [address] Simona Ribeiro MD [address] [place] [address] 03/07/2025 9:00 AM EDT Office Visit [facility] ADULT DENTAL [address] [place], [place] [phone] Nevin Cabezas documented as of this encounter Visit Diagnoses Not on filedocumented in this encounter Additional Health Concerns Assessment Noted Time PHQ-9 Depression Total Score: 15 024 10:23 AM EDT documented as of this encounter Care Teams Consulting Senior Practice Director Relationship Specialty Start Date End Date Simona Ribeiro MD [address] [place] [address] PCP - General Family Medicine 07/21/19 [employer] 02/22/24 documented as of this encounter
--- OUTSIDE RECORDS SUMMARY | 2024-11-02 14:33 | XMS_ITS | Encounter Summary ---
Author Organization [facility] [employer] Address [address] [facility] [address] [place] [address] Care Team Providers Care Central Scheduler Name Role Phone Simona Ribeiro MD Primary Care Provide r Reason for Visit * Reason Onset Date Comments Nurse Triage 03/24/2023 Encounter Details Date Type Department Care Team ([facility] st Contact Info) Description 03/24/2023 Telephone [facility] MEDICINE [address] [place], [place] [phone] Simona Ribeiro MD [address] [place], [place] [phone] Nurse Triage Social History Tobacco Use Types Packs/Day Years [...] Recorded Patient Health Questionnaire-2 Score 6 01/31/2024 Comments Unknown Sex and Gender Information Value Date Recorded Sex Assigned at Female 07/20/2022 10:36 AM EDT Legal Sex Female 10:36 AM EDT Gender Identity Female 07/20/2022 10:36 AM EDT Sexual Orientation Choose not to disclose 2021 10:36 AM EDT documented as of this encounter Miscellaneous Notes * Telephone Encounter - Ni Bajwa RN - 03/24/2023 3:26 PM EDT Triage call with [employer] Saw Operator [place] [id number] Pt reports chronic low back pain. Pt reports numbness in low back radiates to bilateral legs. Pt isable to ambulate. Pt was sent to specialist and rec is for back surgery and Pt doesn't want to have surgery. Pt was advised to return to PCP for follow up. Pt reports not taking anything for back pain. Pt is given home care advise and Apt with Dr. Marion 04/05 @ 330pm. Insurance is verified as active prior to booking. Protocol Used: Back Pain (Adult) Protocol-Based Disposition: See in Office or Video Visit within 2 Weeks Video visit not offered Positive Triage Question: * Back pain is a chronic symptom (recurrent or ongoing AND lasting > 4 weeks) * All higher-acuity triage questions were negative Care Advice Discussed: * Reassurance and Education - Back Pain * Cold or Heat * Sleep * Activity * Pain Medicines * Pain Medicines - Extra Notes and Warnings * Reasons To Call Back - Fever occurs - Numbness or weakness occurs, or bowel/bladder problems - Pain begins to shoot into the leg - Pain persists over 2 weeks - Pain becomes worse - You become worse * Telephone Encounter - Genevieve Velasco - 03/24/2023 3:05 PM EDT Symptom: Back Pain - Not From Injury Outcome: Schedule an urgent appointment (within 1 hour) or talk to a nurse or provider soon Reason: Numbness of the leg The caller accepted this outcome Please contact at [phone] Burmese documented in this encounter Plan of Treatment Upcoming Encounters Date Type Department Care Team (Late st Contact Info) Description 11/20/2024 9:30 AM EST Office Visit [facility] OPTOMETRY [address] [place] [address] Jessika Mcclure, OD [address] [place] [address] 12/21/2024 3:30 PM EDT Telemedicine [facility] MEDICINE [address] [place] [address] Simona Ribeiro MD [address] [place] [address] 03/07/2025 9:00 AM EDT Office Visit [facility] ADULT DENTAL [address] [place] [address] Nevin Cabezas documented as of this encounter Visit Diagnoses Not on filedocumented in this encounter Care Teams Central Scheduler Relationship Specialty Start Date End Date Simona Ribeiro MD [address] [place] [address] PCP - General Family Medicine 07/21/19 [employer] 02/22/24 documented as of this encounter
--- OUTSIDE RECORDS SUMMARY | 2024-11-02 14:33 | XMS_ITS | Encounter Summary ---
Author Organization [employer] Address [address] [facility] [address] [place] [address] Care Team Providers Care Brick Picker Name Role Phone Simona Ribeiro MD Primary Care Provide r Encounter Details Date Type Department Care Team (Latest Contact Info) Description 10/04/2019 Abstract [facility] CONVERSIONS Dental, Provider, DDS Social History Tobacco Use Types Packs/Day Years Used Date Smoking Tobacco: Never Assessed Comments Unknown Sex and Gender Information Value [...] Description 11/20/2024 9:30 AM EST Office Visit [facility] OPTOMETRY [address] [place] [address] RenJessika ahumada, OD [address] [place] [address] 12/21/2024 3:30 PM EDT Telemedicine [facility] MEDICINE [address] [place] [address] Simona Ribeiro MD [address] [place] [address] 03/07/2025 9:00 AM EDT Office Visit [facility] ADULT DENTAL [address] [place] [address] Nevin Cabezas documented as of this encounter Visit Diagnoses Not on filedocumented in this encounter Care Teams Brick Picker Relationship Specialty Start Date End Date Simona Ribeiro MD [address] [place] [address] PCP - General Family Medicine 07/21/19 [employer] 02/22/24 documented as of this encounter
--- OUTSIDE RECORDS SUMMARY | 2024-11-02 14:33 | XMS_ITS | Clinical Summary ---
Author Organization [employer] Address [address] [facility] [address] [place] [address] Care Team Providers Care Lean Specialist Name Role Phone Simona Ribeiro MD Primary Care Provide r Allergies Active Allergy Reactions Criticality Noted Date Comments Aspirin Hives,Swelling 07/12/2018 Only to ASA, other NSAIDs is ok. Allergic reaction occurred when pt was 12 years old and occurred in [place]. Penicillin G 12/06/2023 Penicillinase Medium 09/01/2022 Other reaction(s): Other Penicillins Anaphylaxis,Hives High 07/12/2018 Shellfish Allergy 07/27/2023 Medications betamethasone dipropionate 0.05 % cream Apply 1 application topically at bed time. Active bisacodyl (Dulcolax) 5 MG EC tablet Take 5 mg by mouth if needed each day. Active buPROPion SR (Wellbutrin SR) 100 MG 12 hr tablet Take 1 tablet by mouth at bed time. Active busPIRone (Buspar) 10 MG tablet Take 1 tablet by mouth every 12 (twelve) hours. Active hydrOXYzine HCl (Atarax) 50 MG tablet Take 1 tablet by mouth every 12 (twelve) hours. Active omeprazole (PriLOSEC) [address] capsule Take 40 mg by mouth in the morning. Active montelukast (Singulair) 10 MG tablet Take 10 mg by mouth in the morning. Active mometasone-formo terol (Dulera 100) 100-5 MCG/ACT inhaler Inhale 2 puffs in the morning and at bedtime. Active metroNIDAZOLE (Metrocream) 0.75 % cream Apply 1 application topically in the morning. 021 Active Fluticasone-Salm eterol 250-50 MCG/ACT aerosol powder Inhale 1 puff every 12 (twelve) hours. 022 Active clotrimazole (Lotrimin) 1 % vaginal creamIndications :Vulvovaginal Candidiasis Insert one applicator per vagina at bedtime for 7 nights 45 g 023 Active Blood Glucose Monitoring Suppl ([employer] Lite) w/Device kit 1 each in the morning and 1 each at noon. Test blood sugar twice a day. 1 kit 023 Active topiramate 50 MG tabletIndication s:Other migraine without status migrainosus, not intractable TAKE 2 TABLETS BY MOUTH DAILY DIRECTED 60 tablet 3 023 Active triamcinolone (Kenalog) 0.1 % ointmentIndicati ons:Allergic dermatitis APPLY A THIN LAYER TOPICALLY TO THE AFFECTED AREA TWICE A DAY 30 g 1 023 Active butalbital-aceta minophen-caffein e 50-325-40 MG tabletIndication s:Other migraine without status migrainosus, not intractable Take 1 tablet by mouth every 4 (four) hours. 20 tablet 1 024 Active Ketotifen Fumarate 0.035 % solutionIndicati ons:Allergic conjunctivitis of both eyes Administer 1 drop into both eyes 2 times daily. 10 mL 1 024 Active atorvastatin (Lipitor) 20 MG tabletIndication s:Other hyperlipidemia TAKE 1 TABLET BY MOUTH DAILY 90 tablet 1 024 Active gabapentin (Neurontin) 400 MG capsuleIndicatio ns:Fibromyalgia Take 1 capsule (400 mg) by mouth 3 times daily. 90 capsule 11 024 2024 Active albuterol (Ventolin HFA) 108 (90 Base) MCG/ACT inhalerIndicatio ns:Uncomplicated asthma, unspecified asthma severity, unspecified whether persistent INHALE 2 PUFFS BY MOUTH EVERY 4 TO 6 HOURS NEEDED 18 g 3 024 Active famotidine (Pepcid) 40 MG tabletIndication s:Gastroesophage al reflux disease without esophagitis TAKE 1 TABLET BY MOUTH AT BEDTIME 90 tablet 1 024 Active lidocaine (Lidoderm) 5 % patch Apply 1 patch topically if needed each day for moderate pain. 60 patch 5 024 Active ergocalciferol (Vitamin D-2) 1.25 MG (47987 UT) capsuleIndicatio ns:Vitamin D deficiency Take 1 capsule (1.25 mg) by mouth 1 (one) time per week. 12 capsule 024 Active cyclobenzaprine (Flexeril) 10 MG tabletIndication s:Acute pain of left shoulder Take 1 tablet (10 mg) by mouth 3 times daily for 10 days. 30 tablet 024 Active ibuprofen 800 MG tabletIndication s:Acute pain of left shoulder Take 1 tablet (800 mg) by mouth every 8 (eight) hours if needed for mild pain. 1-2 tabs po tid prn pain with meals 20 tablet Active Semaglutide-Weig ht Management (Wegovy) 0.25 MG/0.5ML solution auto-injectorInd ications:Obesity (BMI 30-39.9) Inject 0.25 mg under the skin 1 (one) time per week. 0.5 mL 024 Active albuterol (2.5 MG/3ML) 0.083% nebulizer solutionIndicati ons:Mild intermittent asthma without complication INHALE 1 VIAL BY NEBULIZATION ROUTE THREE TIMES A DAY IF NEEDED 90 mL 1 024 Active Semaglutide-Weig ht Management (Wegovy) 0.5 MG/0.5ML solution auto-injector INJECT ONE PEN (=0.5MG) SUBCUTANEOUSLY ONCE A WEEK 2 mL 024 Active FreeStyle lancetsIndicatio ns:Prediabetes TEST BLOOD SUGAR TWICE A DAY 100 each Active glucose blood (FREESTYLE LITE) test stripIndications :Prediabetes TEST BLOOD SUGAR TWICE A DAY 100 each Active minoxidil (Loniten) 2.5 MG tablet Take 1 tablet (2.5 mg) by mouth Once per day. 30 tablet 11 025 2025 Active metFORMIN (Glucophage) 500 MG tabletIndication s:Prediabetes TAKE 1 TABLET BY MOUTH TWICE A DAY WITH MORNIGN AND EVENING MEALS 180 tablet 1 025 Active butalbital-aceta minophen-caffein e 50-325-40 MG tabletIndication s:Migraine without aura, not refractory Take 1 tablet by mouth every 6 (six) hours if needed for headaches. 9 tablet 1 025 2024 Active phentermine 15 MG capsuleIndicatio ns:Class 1 obesity with serious comorbidity and body mass index (BMI) of 31.0 to 31.9 in adult, unspecified obesity type Take 1 capsule (15 mg) by mouth before breakfast. 30 capsule 025 2024 Active topiramate (Topamax) 50 MG tabletIndication s:Seizure disorder (CMS/HCC),Class 1 obesity with serious comorbidity and body mass index (BMI) of 31.0 to 31.9 in adult, unspecified obesity type Take 1 tablet (50 mg) by mouth at bedtime. 90 tablet 1 025 Active metFORMIN (Glucophage) 500 MG tabletIndication s:Prediabetes Take 1 tablet by mouth twice a day with morning and evening meals 180 tablet 1 024 2024 Discontinued minoxidil (Loniten) 2.5 MG tablet Take 1 tablet (2.5 mg) by mouth Once per day. 30 tablet 11 024 2024 Discontinued(R eorder (will not trigger notification to Pharmacy)) Active Problems Problem Noted Date Diagnosed Date Right hand pain 11/02/2024 Dental plaque 09/05/2024 Obesity (BMI 30-39.9) 04/27/2024 Assessment & Plan (04/27/2024 12:40 PM EDT): Today extensive discussion was done about life style modifications I advise healthy diet (low calorie) and cardiovascular exercise I will prescribe for her wegovy today Chronic pain of right knee 04/27/2024 Normal oral exam 01/31/2024 Assessment & Plan (01/31/2024 4:07 PM EDT): See HPI Hair loss 01/31/2024 Assessment & Plan (01/31/2024 4:08 PM EDT): TSH will be check I will refer her to dermatology Other fatigue 01/31/2024 Assessment & Plan (01/31/2024 4:15 PM EDT): I will check TSH to r/o hypothyroidism Other blood work also ordered Hypoglycemia, unspecified 11/01/2023 Assessment & Plan (11/01/2023 1:43 PM EST): I advise small frequent meal high in protein and fiber, low in sugars and carbs I advise to f/u with her bariatric team and let them know so that her diet is modified Other chronic allergic conjunctivitis 11/01/2023 History of dental anglican 10/06/2023 Missing teeth, acquired 09/14/2023 Acute bacterial conjunctivitis of right eye 03/2023 Acute pain of right shoulder 05/03/2023 Forgetfulness 05/03/2023 Seizure disorder 01/28/2023 Assessment & Plan (01/31/2024 4:11 PM EDT): Continue to follow with neurology Assessment & Plan (01/28/2023 10:35 AM EDT): Pharmacy will be call to inform about her underline seizure disorder so that psychiatrist who is prescribing meds is aware Fibromyalgia 01/28/2023 Assessment & Plan (05/04/2023 1:11 PM EDT): Patient was educated about multidisciplinary approach for her condition, it was advise cardiovascular exercise, maintain hydration, treat anxiety/depression and take medications as directed Assessment & Plan (01/28/2023 10:36 AM EDT): Patient was educated about multidisciplinary approach for her condition, it was advise cardiovascular exercise, maintain hydration, treat anxiety/depression and take medications as directed I increase today her gabapentin to 400mhg Q 8hrs Allergic conjunctivitis of both eyes 01/28/2023 Assessment & Plan (01/31/2024 4:06 PM EDT): I will prescribed again her ketotifen Annual physical exam 12/07/2022 Overview (12/07/2022): declines Flu and COVID booster UTD with mammo and pap screening regular exercise, continued weight loss Assessment & Plan (01/28/2023 10:34 AM EDT): Please refer to HPI Acute low back pain 09/01/2022 Allergic dermatitis 09/01/2022 Lumbosacral radiculopathy 09/01/2022 Assessment & Plan (01/31/2024 4:13 PM EDT): Apply heat on affected area Ibuprofen PRN Migraine without aura, not refractory 09/01/2022 Assessment & Plan (01/31/2024 4:08 PM EDT): I advise to avoid migraine triggers like red wine, chocolate, cheese, strong perfumes Continue to follow with neurology Assessment & Plan (01/28/2023 10:34 AM EDT): I advise to avoid migraine triggers like red wine, chocolate, cheese, strong perfumes c/w current management Mild intermittent asthma 09/01/2022 Assessment & Plan (01/31/2024 4:13 PM EDT): Stable C/w albuterol PRN Assessment & Plan (07/27/2023 10:28 AM EST): contorl c/w same interventions Narcolepsy without cataplexy 09/01/2022 Prediabetes 09/01/2022 Assessment & Plan (01/31/2024 4:06 PM EDT): Today extensive discussion was done about life style modifications I advise healthy diet (low calorie) and cardiovascular exercise Rosacea 09/01/2022 Allergic rhinitis 04/20/2019 Dysphagia 04/20/2019 Hyperlipidemia 04/20/2019 Hyperuricemia 04/20/2019 Pain in lower limb 04/20/2019 Gastroesophageal reflux disease without esophagi tis 08/24/2018 Chronic back pain 07/12/2018 Assessment & Plan (01/31/2024 4:07 PM EDT): Apply heat on affected area Ibuprofen PRN Constipation 07/12/2018 Diverticular disease 07/12/2018 Dizziness 07/12/2018 Gastritis 07/12/2018 Increased frequency of urination 07/12/2018 Kidney stone 07/12/2018 Migraine 07/12/2018 Assessment & Plan (11/01/2023 1:43 PM EST): I advise to avoid migraine triggers like red wine, chocolate, cheese, strong perfumes Assessment & Plan (07/27/2023 10:27 AM EST): control c/w same medication regimen Mood disorder 07/12/2018 Assessment & Plan (01/31/2024 4:10 PM EDT): Continue to follow with therapist and psychiatrist Petechial rash 07/12/2018 Sciatica 07/12/2018 Vitamin D deficiency 07/12/2018 Sleep apnea 03/18/2017 Assessment & Plan (07/27/2023 10:28 AM EST): Followed by sleep medicine, patient is following advise and instructions Encounters Date Type Department Care Team Description 11/02/2024 1:45 PM EST Office Visit [facility] [address] [place] [phone] Simona Ribeiro MD Migraine without aura, not refractory (Primary Dx); Right hand pain; Seizure disorder (CMS/HCC); Dietary counseling; Exercise counseling; Class 1 obesity with serious comorbidity and body mass index (BMI) of 31.0 to 31.9 in adult, unspecified obesity type 11/02/2024 Travel 10/30/[address] [facility] [address] [place] [phone] Simona Ribeiro MD Prediabetes 10/27/2024 11:15 AM EST Office Visit [facility] [address] [place] [address] Kezia Patton MD Androgenic alopecia (Primary Dx) 10/27/2024 Travel 10/25/[address] [facility] ADULT DENTAL [address] [place] [address] Halina Reeves 10/20/[address] [facility] [address] [place] [address] Simona Ribeiro MD Pre-visit Planning (SDOH screening negative and tobacco screening negative) 09/05/2024 8:00 AM EST Office Visit [facility] [address] [place] [address] Halina Reeves Dental plaque (Primary Dx); Missing teeth, acquired; Normal oral exam 09/01/2024 Orders Only [facility] External Provider, [facility] 08/25/[address] [facility] [address] [place] [phone] Heather Rizo RN Med Refill (Wegovy notification) from Last 3 Months Immunizations Name Administration Dates Next Due Influenza injectable quadriv alent preservative free 07/27/2023,10/16/2022,09/01/2019,12/09 Pfizer Covid-19 Vaccine 12+ Bivalent 10/23/2022 Pneumococcal Conjugate PCV 20 01/31/2024 Pneumococcal Polysaccharide PPSV23 09/29/2018 Tdap 07/12/2018 Varicella 12/09/2018,08/24/2018 Family History Medical History Relation Name Comments Asthma Father Cancer Father Gastric CA Diabetes Father Migraines Father Breast cancer Mother Hypertension Mother Schizophrenia Mother Relation Name Status Comments Father Mother Social History Tobacco Use Types Packs/Day Years Used Date Smoking Tobacco: Never Passive Smoke Exposure: Never Smokeless Tobacco: Never Tobacco Cessation:Counseling Given: No Alcohol Use Standard Drinks/Week Comments Never 0 [...] not to disclose 2021 10:36 AM EDT Last Filed Vital Signs Vital Sign Reading Time Taken Comments Blood Pressure 118/75 11/02/2024 1:19 PM EST Pulse 65 11/02/2024 1:19 PM EST Temperature 35.1 ??C (95.2 ??F) 11/02/2024 1:19 PM ES T Respiratory Rate 14 11/02/2024 1:19 PM EST Oxygen Saturation 98% 04/27/2024 10:37 AM EDT Inhaled Oxygen Concentration - - Weight 80.6 kg (177 lb 9.6 oz) 11/02/2024 1:19 P M EST Height 160 cm (5' 3 ) 11/02/2024 1:19 PM EST Body Mass Index 31.46 11/02/2024 1:19 PM EST Plan of Treatment Upcoming Encounters Date Type Department Care Team (Late st Contact Info) Description 11/20/2024 9:30 AM EST Office Visit [facility] [address], [place] [phone] Jessika Mcclure, SERGIO [address] [place] [address] 12/21/2024 3:[address] [facility] [address] [place] [address] Simona Ribeiro MD [address] [place] [address] 03/07/2025 9:00 AM EDT Office Visit [facility] ADULT DENTAL [address] [place] [address] Nevin Cabezas Health Maintenance Due Date Last Done Comments HIV Screening 1980 Family Planning (PISQ) 1995 Hepatitis C Screening 1998 Hepatitis B Vaccines (1 of 3 - 19+ 3-dose series) 1999 Dental Oral Exam 12/12/2020 06/13/2020, 10/04/2019 COVID-19 Vaccine ( season) 2024 10/23/2022, 09/09/2021, 01/26/2021, Additional history exists Influenza Vaccine (#1) 2024 , 10/16/2022, 09/01/2019, Additional history exists Diabetes: Hemoglobin A1C 02/08/2025 024, 01/31/2024, 01/05/2023, Additional history exists Dental Prophylaxis 03/07/2025 09/05/2024, 1 11/15/2022, 06/28/2020, Additional history exists Alcohol/Substance Use Screening 04/27/2025 04/27/2024 Depression Monitoring (PHQ-9) 05/02/2025 11/02/2024, 11/02/2024 Mammogram 09/01/2025 09/01/2024, 04/05/2024, 08/31/2023, Additional history exists Dental X-Ray: Bitewings 09/06/2025 09/05/20 24, 09/14/2023, 10/04/2019 SDOH Screening 10/20/2025 10/20/2024 Depression Screening 11/02/2025 11/02/2024, 11/02/19 25 Tobacco Screening 11/02/2025 11/02/2024 Cervical Cancer Screening 08/18/2026 HPV/Cotest 08/18/2026 08/18/2021 Pap Smear 08/18/2026 08/18/2021 Dental X-Ray: Full Mouth 09/15/2026 09/14/2023, 09/20 DTaP/Tdap/Td Vaccines (2 - Td or Tdap) 07/12/2028 07/12/2018 Lipid Panel 01/30/2029 01/31/2024, 12/19, 12/02/2020 Zoster Vaccines (1 of 2) 2030 RSV Patients and Patients Aged 60 years or older (1 - 1-dose 75+ series) 2055 Pneumococcal Vaccine: Pediatrics (0 to 5 Years) and At-Risk Patients (6 to 49) Years) Completed 01/31/2024, 09/29/2018 HIB Vaccines Aged Out No longer eligi [...] patient's age to complete this topic Meningococcal Vaccine Aged Out No rodney farooq eligible based on patient's age to complete this topic RSV under 20 months Aged Out No longe r eligible based on patient's age to complete this topic Rotavirus Vaccines Aged Out No longer eligible based on patient's age to complete this topic Procedures Procedure Name Priority Date/Time Associated Diagnosis Comments ORAL HYGIENE INSTRUCTIONS Routine 09/05/2024 8:00 AM EST Dental plaque Missing teeth, acquired BITEWINGS - 4 RADIOGRAPHIC IMAGES Routine 09/05/2024 8:00 AM EST Dental plaque Missing teeth, acquired CASE PRESENTATION, DETAILED AND EXTENSIVE TREATMENT PLANNING Routine 09/05/2024 8:00 AM EST Dental plaque Missing teeth, acquired INTRAORAL - PERIAPICAL EACH ADDITIONAL RADIOGRAPHIC IMAGE Routine 09/05/2024 8:00 AM EST Dental plaque Missing teeth, acquired INTRAORAL - PERIAPICAL FIRST RADIOGRAPHIC IMAGE Routine 09/05/2024 8:00 AM EST Dental plaque Missing teeth, acquired Full PROPHYLAXIS - ADULT Routine 09/05/2024 8:00 AM EST Dental plaque BI MR BREAST W AND WO CONTRAST BILATERAL Routine 09/01/2024 9:35 AM EST HEMOGLOBIN A1C Routine 02/09/2024 9:24 AM EDT LIPID PANEL, STANDARD Routine 01/31/2024 10:50 AM EDT Encounter for preventive health examination INTRAORAL - COMPLETE SERIES OF RADIOGRAPHIC IMAGES Routine 09/14/2023 1:00 PM EST Missing teeth, acquired ZZZ HISTORICAL HPV E6/E7 RFLX DANNY 16 18/45 Routine 08/18/2021 10:17 AM EST HM PAP/HPV Routine 08/18/2021 12:00 AM EST PERIODIC ORAL EVALUATION - ESTABLISHED PATIENT Routine 06/13/2020 12:00 AM EDT from Last 3 Months or Most Recently Relevant to Health Maintenance Results * BI MR Breast w and w/o Contrast Bilateral (09/01/2024 9:35 AM EST) Anatomical Region Laterality Modality Breast Bilateral Magnetic Resonan ce 09/01/2024 9:35 AM EST Narrative 09/24/2024 2:58 PM EST ? [facility] ?[address] ?[place] [address] ? Magnetic Resonance Report ? Signed ? Patient: Larsonjo Grady,Regina ?MR#: ?? [id number] ? : 1980 ?Acct:[id number] ? Age/Sex: 44 / F ?ADM Date: 12/13/24 ? Loc: HO.MRI ? Attending Dr: Luis Carlos Adrian MD ? Ordering Physician: Luis Carlos Adrian MD ?? Date of Service: 09/01/24 ?? Procedure(s): MR breast BI wo/w con ?? Accession Number(s): [id number] ? cc: Simona Ribeiro MD; Luis Carlos Adrian MD ? EXAMINATION: ?? MR BREAST WITHOUT AND WITH CONTRAST, BILATERAL ? CLINICAL INFORMATION: ?? High risk strong family history of breast cancer including mother at ?? age 26 and paternal grandmother. ? COMPARISON: ?? Breast MRI August 31, 2023, mammography January 17, 2024. ? TECHNIQUE: ?? MR imaging of the breast was performed using T1, T2 and fat saturated ?? techniques. Dynamic multiphase imaging was also performed after the ?? administration of intravenous gadolinium contrast agent. Computer ?? generated 3-D reconstruction was utilized by the radiologist in the ?? interpretation of this examination. ? FINDINGS: ?? There is scattered fibroglandular breast tissue with minimal background ?? enhancement. ?? Status post bilateral reduction mammoplasty changes. ? LEFT BREAST: ?? No suspicious enhancing masses or areas of nonmass enhancement. ?? No architectural distortion. ?? No internal mammary or axillary adenopathy. ? RIGHT BREAST: ?? No suspicious enhancing masses or areas of nonmass enhancement. ?? No architectural distortion. No internal mammary or axillary adenopathy. ? Limited views of the chest and abdomen are unremarkable. ? MR/MR breast BI wo/w con ?? IMPRESSION: ?? No MRI evidence of malignancy bilateral breasts. ? ASSESSMENT: ?? LEFT BREAST: BI-RADS 2 benign. ? RIGHT BREAST: BI-RADS 2 benign. ? RECOMMENDATIONS: ?? Recommend yearly screening mammogram. ?? Recommend yearly MRI screening surveillance. ? Electronically signed by: ??Mya Goetz DO ??09/24/2024 02:55 PM EST ?? RP ? Dictated By: ?Mya Goetz DO ? Signed By: ?<Electronically signed by Mya Goetz DO in OV> ? 09/24/245 ? DD/ 4 ? TD/TT: 09/01/24 1015 ? 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 Procedure Note Felice, Jaylin - 09/24/[address] [address] Magnetic Resonance Report Signed Patient: Regina Willson#: [id number] : 1980Acct:[id number] Age/Sex: 44 / FADM Date: 09/01/24 Loc: .MRI Attending Dr: Luis Carlos Adrian MD Ordering Physician: Luis Carlos Adrian MD Date of Service: 09/01/24 Procedure(s): MR breast BI wo/w con Accession Number(s): [id number] cc: Simona Ribeiro MD; Luis Carlos Adrian MD EXAMINATION: MR BREAST WITHOUT AND WITH CONTRAST, BILATERAL CLINICAL INFORMATION: High risk strong family history of breast cancer including mother at age 26 and paternal grandmother. COMPARISON: Breast MRI August 31, 2023, mammography January 17, 2024. TECHNIQUE: MR imaging of the breast was performed using T1, T2 and fat saturated techniques. Dynamic multiphase imaging was also performed after the administration of intravenous gadolinium contrast agent. Computer generated 3-D reconstruction was utilized by the radiologist in the interpretation of this examination. FINDINGS: There is scattered fibroglandular breast tissue with minimal background enhancement. Status post bilateral reduction mammoplasty changes. LEFT BREAST: No suspicious enhancing masses or areas of nonmass enhancement. No architectural distortion. No internal mammary or axillary adenopathy. RIGHT BREAST: No suspicious enhancing masses or areas of nonmass enhancement. No architectural distortion. No internal mammary or axillary adenopathy. Limited views of the chest and abdomen are unremarkable. MR/MR breast BI wo/w con IMPRESSION: No MRI evidence of malignancy bilateral breasts. ASSESSMENT: LEFT BREAST: BI-RADS 2 benign. RIGHT BREAST: BI-RADS 2 benign. RECOMMENDATIONS: Recommend yearly screening mammogram. Recommend yearly MRI screening surveillance. 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 Blood transfusions may impact the HbA1c concentration in the patient sample. Estimated Average Glucose 117 mg/dL [facility] Comment:eAG = Estimated ave rage glucose which is %A1C expressed asaverage glucose, using the formula of the C5N-EeytaxoNvceouk Glucose study (ADAG), Diabetes Care, Vol.31,#8,Apr. 2007 02/09/2024 9:24 AM EDT 02/09/2024 9:24 AM EDT us Generic External Data Provider LAB BLOOD ORDERAB LES Final Result [facility] [address] [place] [address] [phone] * (ABNORMAL) Lipid Panel, Standard (01/31/2024 10:50 AM EDT) Triglycerides 119 <150 mg/dL [facility] Comment:Desirable Triglyceri de: less than 150 mg/dLBorderline High Triglyceride 150-199 mg/dLHigh Triglyceride: 200-499 mg/dLVery High Triglyceride: greater than or equal to 5OO mg/dL Cholesterol 265(H) <200 mg/dL [facility] Comment:Desirable Cholestero l: less than 200 mg/dLBorderline High Cholesterol: 200-239 mg/dLHigh Cholesterol: greater than 239 mg/dL LDL Cholesterol Calculated 178(H) <100 mg/dL [facility] Comment:Desirable LDL: less than 100 mg/dLNear Optimal/Above Optimal LDL: 110- 129 mg/dLBorderline High LDL: 130-159 mg/dLHigh LDL: 160-189 mg/dLVery High LDL: greater than or equal to 190 mg/dL HDL Cholesterol 64 >40 mg/dL [facility] Comment:Desirable HDL: great er than 40 mg/dL Note: This HDL assay may give artificially low results in patients with liver disease. Blood Venous blood specimen / Unknown 01/31/2024 10:50 AM EDT 01/31/2024 1:10 PM EDT us Simona Gaston MD LAB BLOOD ORDERABLES Final Result Performing Organization Address City/[facility]/ZIP Co de Phone Number [facility] [address] [place] [address] [phone] * HPV E6/E7 RFLX DANNY 16 18/45 (08/18/2021 10:17 AM EST) HPV 16 RNA [facility] HPV 18/45 RNA [facility] HPV E6 E7 ADD [facility] HPV mRNA E6/E7 rflx Not Detected Not Detected [facility] Comment: Methodology: [employer] Analyst-Mediated Amplification This assay detects E6/E7 viral messenger RNA (mRNA) from 14 high-risk HPV types (16,18,31,33,35,39,45,51,52,56,58,59,66,68). The analytical performance characteristics of this assay have been determined by [employer]. The modifications have not been cleared or approved by the FDA. This assay has been validated pursuant to the CLIA regulations and is used for clinical purposes. For additional information, please refer to http://education.HipSwap/faq/KST496s9 (This link if provided for information/ educational purposes only.) THIS TEST WAS PERFORMED AT: [employer] [address] [place] [address] [address] [facility],[address] [place], [place] ??[phone] JASWINDER PAUL MD 08/18/2021 10:1 7 AM EST us Ramesh Maki MD HISTORICAL/NON ORDERABLE LABS Fi nal Result [facility] [address] * Hm Pap Smear (08/18/2021 12:00 AM EST) Historical Provider HEALTH MAINTENANCE Final Result from Last 3 Months or Most Recently Relevant to Health Maintenance Insurance [facility] MEDICAID STAND ADULT Care Teams Lean Specialist Relationship Specialty Start Date End Date Simona Ribeiro MD [address] [place] [address] PCP - General Family Medicine 07/21/19 [employer] 02/22/24
--- OUTSIDE RECORDS SUMMARY | 2024-11-02 14:33 | XMS_ITS | Encounter Summary ---
Author Organization [employer] Address [address] [facility] [address] [place] [address] Care Team Providers Care Sole Filler Name Role Phone Simona Ribeiro MD Primary Care Provide r Encounter Details Date Type Department Care Team (Late Contact Info) Description 06/14/2023 Orders Only [facility] MED[facility] [address] [place], [place] [phone] Nemo Patel Social History Tobacco Use Types Packs/Day Years [...] Description 11/20/2024 9:30 AM EST Office Visit [facility] OPTOMETRY [address] [place], [place] [phone] Jessika Mcclure OD [address] [place] [address] 12/21/2024 3:30 PM EDT Telemedicine [facility] [address] [place], [place] [phone] Simona Ribeiro MD [address] [place] [address] 03/07/2025 9:00 AM EDT Office Visit [facility] ADULT DENTAL [address] [place] [address] Nevin Cabezas documented as of this encounter Procedures Procedure Name Priority Date/Time Associated Diagnosis Comments HM PAP/HPV Routine 08/18/2021 12:00 AM EST documented in this encounter Results * Hm Pap Smear (08/18/2021 12:00 AM EST) us Historical Provider HEALTH MAINTENANCE Final Result documented in this encounter Visit Diagnoses Not on filedocumented in this encounter Care Teams Sole Filler Relationship Specialty Start Date End Date Simona Ribeiro MD [address] [place] [address] PCP - General Family Medicine 07/21/19 [employer] 02/22/24 documented as of this encounter
--- OUTSIDE RECORDS SUMMARY | 2024-11-02 14:33 | XMS_ITS | Data Portability ---
Author Organization [facility] Medical Severo Titus madsen, [employer] Address [address] [place] [address] Assessment Encounter Date Assessment Date Assessment LastModified by Organization Details LastModified Time 08/05/2017 08/05/2017 Assessment: 37 yo F pmhx asthma, obesity, migraines, HLD, GERD, DM, depression here for routine f/u --- denies cp, sob, loc --- pt reports she use albuterol 1-2x a week Plan: Check full B/W SCRN: had PAP yesterday DM: was not started on meds before -- had a1c of 6.6% Migraines: pt states she has one everyday, has had this since she was 10 years old -- pt has had brain scans before -- has appt with neurology next month -- when pt started new meds last year it started to get better -- no new sx f/u 2 weeks Not available 08/05/2017 10:57:45 09/28/2017 09/28/2017 HPI: 37 yo F pt comes today pt is here for routine f/u of asthma/depressive disorder. - Pt has PMH of Migraine , pt mentions has been better, currently using amitriptyline 25 mg QD, bupropion HCL 100 mg tablet, topiramate 25 mg BID and sumatriptan and butalbital + caffeine for acute migraine. - Pt mentions need referral for instrument maintenance supervisor to perform bariatric surgery---- EKG normal. - Pt mentions she had hysterectomy with ooforectomy on 2011 and need hormone replacement at this time for that reason is requesting a senior clinical sas programmer referral. Lab results. - Vitamin D - UA -- blood small. Medication list was reviewed, and medication management was discussed. Changes are detailed in the Plan section below. Additional testing or evaluation is detailed in the Plan section below. Instructions regarding follow up were discussed and accepted. [email or web address] Not available 09/28/2017 18:13:18 12/02/2017 12/02/2017 Assessment: 37 yo F pmhx asthma, obesity, migraines, HLD, GERD, DM, depression, JANNY -c/o sore throat, cough, phlegm for 1 week -pt has 3 migraines in a week -- pt states this is normal for her -- pt sees neurologist every 3 months -- has had MRI recently -- normal-- pt states EARL today is mild -denies CP, SOB, fever, flu shot Plan: -check full b/w -UTD pap (09/05) -zpack for pharyngitis -cardiology referral (pt requests for bariatric surgery requirements) f/u 2 weeks Not available 12/02/2017 13:06:05 Plan of Treatment Reminders Order Date Submit Date Provider Last Modified By Organization Details Last Modified Time Details Appointments None recorded. Lab HbA1c (hemoglobi n A1c), blood 2017 018 TERRY Not available 8 18:54:17 urinalysis , complete 2017 018 TERRY Not available 8 07:00:01 TSH, serum or plasma 2017 018 TERRY Not available 8 11:04:28 lipid panel, serum 2017 018 TERRY Not available 8 20:29:46 CMP, serum or plasma 2017 018 TERRY Not available 8 20:29:45 vitamin D, 25-hydroxy , total, serum 2017 018 TERRY Not available 8 11:04:30 CBC 2017 018 TERRY Not available 8 18:54:19 homocystei ne, blood 2017 018 TERRY Not available 8 17:59:22 magnesium, serum or plasma 2017 018 TERRY Not available 8 20:29:44 vitamin D, 25-hydroxy , total, serum 2016 TERRY Not available 7 16:29:27 CMP, serum or plasma 2016 TERRY Not available 7 16:31:17 TSH, serum or plasma 2016 TERRY Not available 7 20:31:12 T3, total, serum 2016 TERRY Not available 7 20:31:08 T4, free, serum 2016 TERRY Not available 7 20:31:43 HbA1c (hemoglobi n A1c), blood 2016 TERRY Not available 7 16:41:30 microalbum in/creatin ine, mass ratio, urine 2016 [email or web address], [address], [place], [address], 7 06:12:16 CBC 2016 TERRY Not available 7 16:31:20 lipid panel, serum 2016 TERRY Not available 7 16:31:21 urinalysis , complete 2016 TERRY [email or web address], [address], [place], [address], 7 06:12:15 vitamin B12, serum 2016 TERRY Not available 7 20:31:44 folate, serum 2016 TERRY Not available 7 20:31:45 magnesium, serum or plasma 2016 TERRY Not available 7 16:31:[address] referral 2017 018 [email or web address] Not available 8 09:30:27 endocrinol ogy referral 2017 018 [email or web address] Cayetano Chauhan MD, [address], [address], [address], 8 09:21:[address] referral 2017 018 [email or web address] [facility], [address] [place], [address], 8 09:21:[address] referral 2017 018 [email or web address] Not available 8 09:51:19 ophthalmol ogist referral 2016 017 [email or web address] Antony Gao DO, [address] [place], [address], 8 09:20:10 winderman referral 2016 017 [email or web address] Not available 8 09:20:10 Procedures None recorded. Surgeries None recorded. Imaging None recorded. Medication Orders albuterol sulfate HFA 90 mcg/actuat ion aerosol inhaler 2017 018 [facility], [address] [place], [address], 8 12:59:47 Singulair 10 mg tablet 2017 018 [facility], [address] [place], [address], 8 12:59:47 fluticason e propionate 50 mcg/actuat ion nasal spray,susp ension 2017 018 [facility], [address] [place], [address], 8 12:59:47 albuterol sulfate 2.5 mg/3 mL (0.083 %) solution for nebulizati on 2017 018 [facility], [address] [facility], [place], [address], 8 12:59:47 mometasone -formotero l HFA 100 mcg-5 mcg/actuat ion aerosol inhaler 2017 018 [facility], [address] [facility], [place], [address], 8 12:59:47 azithromyc in 250 mg tablet 2017 018 [facility], [address] [place] [address], [address], 8 12:59:47 Contour Next Test Strips 2017 018 INTERFACE [facility], [address] [place] [address], [address], 8 11:14:14 albuterol sulfate 0.63 mg/3 mL solution for nebulizati on 2017 018 INTERFACE [facility], [address] [place] [address], [address], 8 11:14:18 albuterol sulfate 2.5 mg/3 mL (0.083 %) solution for nebulizati on 2017 018 INTERFACE [facility], [address] [place] [address], [address], 8 11:14:02 albuterol sulfate HFA 90 mcg/actuat ion aerosol inhaler 2017 018 INTERFACE [facility], [address] [place] [address], [address], 8 11:14:06 cholecalci ferol (vitamin D3) 1,250 mcg (50,000 unit) capsule 2017 018 [facility]FACE [facility], [address] [place] [address], [address], 8 11:14:10 Contour Next Test Strips 2016 INTERFACE [facility], [address] [place] [address], [place], [address], 7 10:33:41 omeprazole 40 mg capsule,de layed release 2016 INTERFACE [facility], [address] [place] [address], [address], 7 10:34:33 atorvastat in 20 mg tablet 2016 INTERFACE [facility], [address] [place] [address], [place], [address], 7 10:34:18 Advair Diskus 250 mcg-50 mcg/dose powder for inhalation 2016 INTERFACE [facility], [address] [place] [address], [address], 7 10:33:45 albuterol sulfate 0.63 mg/3 mL solution for nebulizati on 2016 INTERFACE [facility], [address] [place] [address], [place], [address], 7 10:34:02 fluticason e propionate 50 mcg/actuat ion nasal spray,susp ension 2016 INTERFACE [facility], [address] [place] [address], [address], 7 10:34:02 Singulair 10 mg tablet 2016 017 INTERFACE [facility], [address] [place] [address], [address], 7 10:34:26 albuterol sulfate HFA 90 mcg/actuat ion aerosol inhaler 11/16/ 2017 11/16/2 017 INTERFACE [facility], [address] [facility], [place], [address], 7 10:34:22 Vitamin D2 1,250 mcg (50,000 unit) capsule 2016 017 INTERFACE [facility], [address] [facility], [place], [address], 7 10:33:51 amitriptyl ine 25 mg tablet 2016 017 INTERFACE [facility], [address] [facility], [place], [address], 7 10:34:09 Fioricet 50 mg-300 mg-40 mg capsule 2016 017 ATHENA[facility]X [facility], [address] [facility], [place], [address], 7 10:46:58 Topamax 25 mg tablet 2016 017 [facility], [address] [facility], [place], [address], 7 10:34:21 Patient TargetsNo targets recorded. Patient Instructions Encounter Date Encounter Id Patient Instructions Last Modified By Organization Details Last Modified Time 08/05/2017 [id number] The patient diagnosis, treatment and medicines were discussed, including side effects. The patient was provided with appropriate answers, was given appropriate prescriptions and next appointment as needed. No further questions from the patient. Not available 08/05/2017 10:22:40 09/28/2017 [id number] high cholesterol : care instructions Not available 09/28/2017 11:12:07 back care and preventing injuries: care instructions [email or web address] Not available 09/28/2017 11:12:07 getting back to normal after low back pain: care instructions [email or web address] Not available 09/28/2017 11:12:07 learning about relief for back pain [email or web address] Not available 09/28/2017 11:12:07 menopausal hormo ne therapy (ht): care instructions [email or web address] Not available 09/28/2017 11:12:07 controlling your asthma: care instructions [email or web address] Not available 09/28/2017 11:12:07 learning about asthma [email or web address] Not available 09/28/2017 11:12:07 learning about mood disorders [email or web address] Not available 09/28/2017 11:12:07 When You Want to Lose Weight: Care Instructions [email or web address] Not available 09/28/2017 11:12:07 Cuando desea gali rice de peso: Instrucciones de cuidado - [When You Want to Lose Weight: Care Instructions] [email or web address] Not available 09/28/2017 11:12:07 The patient diagnosis, treatment and medicines were discussed, including side effects. The patient was provided with appropriate answers, was given appropriate prescriptions and next appointment as needed. No further questions from the patient. [email or web address] Not available 09/28/2017 10:37:58 12/02/2017 [id number] The patient diagnosis, treatment and medicines were discussed, including side effects. The patient was provided with appropriate answers, was given appropriate prescriptions and next appointment as needed. No further questions from the patient. Not available 12/02/2017 12:28:04 Reason for Referral Restoration Technician Referral for Diabetes mellitus Referring Physician: Ibis Singer Physician Assignment Clerk, Encounter Date: 08/05/2017 Iron Launder Operator Referral for Diab etes mellitus Referring Physician: Ibis Singer Physician Assignment Clerk, Encounter Date: 08/05/2017 Endocrinology Referral for H ormone replacement therapy Referring Physician: Jason Mello, Internal Medicine, Encounter Date: 09/28/2017 Tong Hooker Referral for Олег dy mass index 30+ - obesity Referring Physician: Jason Mello, Internal Medicine, Encounter Date: 09/28/2017 Psychiatrist Referral for De pressive disorder Referring Physician: Jason Mello Internal Medicine, Encounter Date: 09/28/2017 Tong Hooker Referral for Олег dy mass index 30+ - obesity Referring Physician: Ibis Singer Physician Assignment Clerk, Encounter Date: 12/02/2017 Results Created Date Observation Date Name Description Value Unit Range Abnormal Flag Note LastModifiedBy Organization Detail LastModifiedTime 08/05/20 17 08/05/2017 urina lysis , compl ete color Yellow Not Available [facility] (Lab) [address] [facility], [place], [address], 08/06/2017 06:12:15 08/05/20 17 08/05/2017 urina lysis , compl ete clarity Cloudy Not Available [facility] (Lab) [address] [facility], [place], [address], 08/06/2017 06:12:15 08/05/20 17 08/05/2017 urina lysis , compl ete bilirubin Negati ve negati ve normal Not Available [facility] (Lab) [address] [facility], [place], [address], 08/06/2017 06:12:15 08/05/20 17 08/05/2017 urina lysis , compl ete urobilinogen <2.0 mg/dL 0.2-1. 9 normal Not Available [facility] (Lab) [address] [facility], [place], [address], 08/06/2017 06:12:15 08/05/20 17 08/05/2017 urina lysis , compl ete ketones Negati ve mg/dL negati ve normal Not Available [facility] (Lab) [address] [facility], [place], [address], 08/06/2017 06:12:15 08/05/20 17 08/05/2017 urina lysis , compl ete glucose Negati ve mg/dL negati ve normal Not Available [facility] (Lab) [address] [facility], [place], [address], 08/06/2017 06:12:15 08/05/20 17 08/05/2017 urina lysis , compl ete protein 30 mg/dL negati ve abnormal Not Available [facility] (Lab) [address] [facility], [place], [address], 08/06/2017 06:12:15 08/05/20 17 08/05/2017 urina lysis , compl ete blood Small negati ve abnormal Not Available [facility] (Lab) [address] [facility], [place], [address], 08/06/2017 06:12:15 08/05/20 17 08/05/2017 urina lysis , compl ete pH 6.0 5.0-9. 0 normal Not Available [facility] (Lab) [address] [facility], [place], [address], 08/06/2017 06:12:15 08/05/20 17 08/05/2017 urina lysis , compl ete nitrite Negati ve negati ve normal Not Available [facility] (Lab) [address] [facility], [place], [address], 08/06/2017 06:12:15 08/05/20 17 08/05/2017 urina lysis , compl ete leuk esterase Large negati ve abnormal Not Available [facility] (Lab) [address] [facility], [place], [address], 08/06/2017 06:12:15 08/05/20 17 08/05/2017 urina lysis , compl ete specific gravity 1.031 1.001- 1.035 normal Not Available [facility] (Lab) [address] [facility], [place], [address], 08/06/2017 06:12:15 08/05/20 17 08/05/2017 urina lysis , compl ete red blood cell 3-4 #/hpf none,0 -2 abnormal Not Available [facility] (Lab) [address] [facility], [place], [address], 08/06/2017 06:12:15 08/05/20 17 08/05/2017 urina lysis , compl ete white blood cell 30-49 #/hpf none,0 -5 abnormal Not Available [facility] (Lab) [address] [facility], [place], [address], 08/06/2017 06:12:15 08/05/20 17 08/05/2017 urina lysis , compl ete bacteria Few /hpf none abnormal Not Available [facility] (Lab) [address], [place], [address], 08/06/2017 06:12:15 08/05/20 17 08/05/2017 urina lysis , compl ete mucus Modera te /hpf none,t race,f ew abnormal Not Available [facility] (Lab) [address], [place], [address], 08/06/2017 06:12:15 08/05/20 17 08/05/2017 urina lysis , compl ete non-squamous epi Trace /hpf none abnormal Not Available [facility] (Lab) [address], [place], [address], 08/06/2017 06:12:15 08/05/20 17 08/05/2017 urina lysis , compl ete squam epi cells Modera te /hpf none abnormal Not Available [facility] (Lab) [address] [facility], [place], [address], 08/06/2017 06:12:15 08/05/20 17 08/05/2017 micro album in/cr eatin ine, mass ratio , urine creatinine, urine 302 mg/dL No Refer ence Range avail able for Rando m Urine s. Not Available [facility] (Lab) [address], [place], [address], 08/06/2017 06:12:16 08/05/20 17 08/05/2017 micro album in/cr eatin ine, mass ratio , urine microalbumin 1.9 mg/dL 0.0-1. 9 normal Not Available [facility] (Lab) [address], [place], [address], 08/06/2017 06:12:16 08/05/20 17 08/05/2017 micro album in/cr eatin ine, mass ratio , urine microalbumin /creatinine ratio 6 mcg/m g 0-30 normal Not Available [facility] (Lab) [address], [place], [address], 08/06/2017 06:12:16 08/06/20 17 08/06/2017 CMP, serum or plasm a sodium 142 mmol/ L 136 - 145 Not Available [facility] [address] [facility] [address], [place], [address], 08/06/2017 16:31:17 08/06/20 17 08/06/2017 CMP, serum or plasm a potassium 4.3 mmol/ L 3.5 - 5.1 Not Available [facility] [address], [place], [address], 08/06/2017 16:31:17 08/06/20 17 08/06/2017 CMP, serum or plasm a chloride 104 mmol/ L 98 - 107 Not Available [facility] [address] [facility] [address], [place], [address], 08/06/2017 16:31:17 08/06/20 17 08/06/2017 CMP, serum or plasm a carbon dioxide 30 mmol/ L 23 - 31 Not Available [facility] [address] [facility] [address], [place], [address], 08/06/2017 16:31:17 08/06/20 17 08/06/2017 CMP, serum or plasm a anion gap 12.3 7.0 - 34.0 Not Available [facility] [address] [facility] [address], [place], [address], 08/06/2017 16:31:17 08/06/20 17 08/06/2017 CMP, serum or plasm a glucose 90 mg/dL 74 - 106 Not Available [facility] [address] [facility] [address], [place], [address], 08/06/2017 16:31:17 08/06/20 17 08/06/2017 CMP, serum or plasm a BUN 14.0 mg/dL 6 - 20 Not Available [facility] [address], [place], [address], 08/06/2017 16:31:17 08/06/20 17 08/06/2017 CMP, serum or plasm a creatinine 0.9 mg/dL 0.5 - 1.2 Not Available [facility] [address] [facility] [address], [place], [address], 08/06/2017 16:31:17 08/06/20 17 08/06/2017 CMP, serum or plasm a calcium 9.9 mg/dL 8.4 - 10.5 Not Available [facility] [address] [facility] [address], [place], [address], 08/06/2017 16:31:17 08/06/20 17 08/06/2017 CMP, serum or plasm a total protein 7.5 g/dL 6.4 - 8.3 Not Available [facility] [address] [facility] [address], [place], [address], 08/06/2017 16:31:17 08/06/20 17 08/06/2017 CMP, serum or plasm a albumin 4.7 g/dL 3.5 - 4.8 Not Available [facility] [address] [facility] [address], [place], [address], 08/06/2017 16:31:17 08/06/20 17 08/06/2017 CMP, serum or plasm a globulin 2.8 g/dL 2.3 - 3.5 Not Available [facility] [address] [facility] [address], [place], [address], 08/06/2017 16:31:17 08/06/20 17 08/06/2017 CMP, serum or plasm a A/G 1.7 # 9 - 56 low Not Available [facility] [address] [facility] [address], [place], [address], 08/06/2017 16:31:17 08/06/20 17 08/06/2017 CMP, serum or plasm a alk phos 82 U/L 42 - 141 Not Available [facility] [address] [facility] [address], [place], [address], 08/06/2017 16:31:17 08/06/20 17 08/06/2017 CMP, serum or plasm a ALT 24 U/L 7 - 34 Not Available [facility] [address] [facility] [address], [place], [address], 08/06/2017 16:31:17 08/06/20 17 08/06/2017 CMP, serum or plasm a AST 21 U/L 7 - 31 Not Available [facility] [address] [facility] [address], [place], [address], 08/06/2017 16:31:17 08/06/20 17 08/06/2017 CMP, serum or plasm a total bilirubin 0.5 mg/dL 0 - 1.2 Not Available [facility] [address] [facility] [address], [place], [address], 08/06/2017 16:31:17 08/06/20 17 08/06/2017 CMP, serum or plasm a age 37 years Not Available [facility] [address] [facility] [address], [place], [address], 08/06/2017 16:31:17 08/06/20 17 08/06/2017 CMP, serum or plasm a sex multiplier 0.742 # Not Available [facility] [address] [facility] [address], [place], [address], 08/06/2017 16:31:17 08/06/20 17 08/06/2017 CMP, serum or plasm a eGFR aa 85 mL/mi n/1.7 3 60 - 300 Not Available [facility] [address] [facility] [address], [place], [address], 08/06/2017 16:31:17 08/06/20 17 08/06/2017 CMP, serum or plasm a eGFR nonaa 70 mL/mi n/1.7 3 60 - 300 Not Available [facility] [address] [facility] [address], [place], [address], 08/06/2017 16:31:17 08/06/20 17 08/06/2017 CBC WBC 5.3 10*3/ uL 3.5 - 10.0 Not Available [facility] [address] [facility] [address], [place], [address], 08/06/2017 16:31:20 08/06/20 17 08/06/2017 CBC RBC 4.90 10*6/ uL 3.9 - 5.10 Not Available [facility] [address] [facility] [address], [place], [address], 08/06/2017 16:31:20 08/06/20 17 08/06/2017 CBC HGB 14.2 g/dL 12.0 - 15.0 Not Available [facility] [address] [facility] [address], [place], [address], 08/06/2017 16:31:20 08/06/20 17 08/06/2017 CBC HCT 43.3 % 37.0 - 45.0 Not Available [facility] [address] [facility] [address], [place], [address], 08/06/2017 16:31:20 08/06/20 17 08/06/2017 CBC MCV 88.0 fL 83 - 100 Not Available [facility] [address] [facility] [address], [place], [address], 08/06/2017 16:31:20 08/06/20 17 08/06/2017 CBC MCH 29.1 pg 26.0 - 34.0 Not Available [facility] [address] [facility] [address], [place], [address], 08/06/2017 16:31:20 08/06/20 17 08/06/2017 CBC MCHC 32.9 g/dL 32.0 - 35 Not Available [facility] [address] [facility] [address], [place], [address], 08/06/2017 16:31:20 08/06/20 17 08/06/2017 CBC RDW 14.2 % 12.0 - 16.0 Not Available [facility] [address] [facility] [address], [place], [address], 08/06/2017 16:31:20 08/06/20 17 08/06/2017 CBC plt 328 10*3/ uL 145 - 355 Not Available [facility] [address] [facility] [address], [place], [address], 08/06/2017 16:31:20 08/06/20 17 08/06/2017 CBC MPV 7.5 fL 7.3 - 10.0 Not Available [facility] [address] [facility] [address], [place], [address], 08/06/2017 16:31:20 08/06/20 17 08/06/2017 CBC gr% 39.4 % 49 - 79 low Not Available [facility] [address] [facility] [address], [place], [address], 08/06/2017 16:31:20 08/06/20 17 08/06/2017 CBC gr# 2.2 # 1.1 - 6.0 Not Available [facility] [address] [facility] [address], [place], [address], 08/06/2017 16:31:20 08/06/20 17 08/06/2017 CBC MO% 9.0 % 2.0 - 6.0 high Not Available [facility] [address] [facility] [address], [place], [address], 08/06/2017 16:31:20 08/06/20 17 08/06/2017 CBC MO# 0.4 # 0.3 - 1.0 Not Available [facility] [address] [facility] [address], [place], [address], 08/06/2017 16:31:20 08/06/20 17 08/06/2017 CBC ly% 51.6 % 19.0 - 47.0 high Not Available [facility] [address] [facility] [address], [place], [address], 08/06/2017 16:31:20 08/06/20 17 08/06/2017 CBC ly# 2.7 # 0.7 - 3.7 Not Available [facility] [address] [facility] [address], [place], [address], 08/06/2017 16:31:20 08/06/20 17 08/06/2017 lipid panel , serum cholesterol 183 mg/dL 100 - 199 Not Available [facility] [address] [facility] [address], [place], [address], 08/06/2017 16:31:21 08/06/20 17 08/06/2017 lipid panel , serum triglyceride 76 mg/dL 0 - 150 Not Available [facility] [address] [facility] [address], [place], [address], 08/06/2017 16:31:21 08/06/20 17 08/06/2017 lipid panel , serum HDL 46 mg/dL 30 - 85 Not Available [facility] [address] [facility] [address], [place], [address], 08/06/2017 16:31:21 08/06/20 17 08/06/2017 lipid panel , serum LDL-calculat ed 122 mg/dL 0 - 100 high Not Available [facility] [address] [facility] [address], [place], [address], 08/06/2017 16:31:21 08/06/20 17 08/06/2017 lipid panel , serum C/H 4.0 # 1.0 - 4.0 Not Available [facility] [address] [facility] [address], [place], [address], 08/06/2017 16:31:21 08/06/20 17 08/06/2017 magne sium, serum or plasm a magnesium 2.3 mg/dL 1.7 - 2.8 Not Available [facility] [address] [facility] [address], [place], [address], 08/06/2017 16:31:22 08/06/20 17 08/06/2017 HbA1c (hemo globi n A1c), blood hemoglobin A1C 5.8 % 4 - 6 Not Available [facility] [address] [facility] [address], [place], [address], 08/09/2017 16:41:30 08/06/20 17 08/06/2017 T3, total , serum TT3 1.4 NG/mL 0.7 - 1.7 Not Available [facility] [address], [place], [address], 08/11/2017 20:31:08 08/06/20 17 08/06/2017 TSH, serum or plasm a TSH 1.1 mIU/L 0.5 - 6.8 Not Available [facility] [id number], [place], [address], 08/11/2017 20:31:12 08/06/20 17 08/06/2017 T4, free, serum free T4 1.5 NG/dL 0.75 - 1.54 Not Available [facility] [address] [address], [place], [address], 08/11/2017 20:31:43 08/06/20 17 08/06/2017 vitam in B12, serum vitamin B12 581 pg/mL 230 - 1050 Not Available [facility] [address], [place], [address], 08/11/2017 20:31:44 08/06/20 17 08/06/2017 folat e, serum folate 11.5 NG/mL 3 - 16 Not Available [facility] [address], [place], [address], 08/11/2017 20:31:45 08/06/20 17 08/06/2017 vitam in D, 25-hy droxy , total , serum vitamin D 27.9 NG/dL 31 - 100 low Not Available [facility] [address] [facility] [address], [place], [address], 08/18/2017 16:29:27 12/03/19 18 12/02/2017 urina lysis , compl ete color Yellow Not Available [facility] (Lab) [address] [facility], [place], [address], 12/03/2017 07:00:01 12/03/19 18 12/02/2017 urina lysis , compl ete clarity Slight ly-Apryl udy Not Available [facility] (Lab) [address] [facility], [place], [address], 12/03/2017 07:00:01 12/03/19 18 12/02/2017 urina lysis , compl ete bilirubin Negati ve negati ve normal Not Available [facility] (Lab) [address] [facility], [place], [address], 12/03/2017 07:00:01 12/03/19 18 12/02/2017 urina lysis , compl ete urobilinogen <2.0 mg/dL 0.2-1. 9 normal Not Available [facility] (Lab) [address] [facility], [place], [address], 12/03/2017 07:00:01 12/03/19 18 12/02/2017 urina lysis , compl ete ketones Negati ve mg/dL negati ve normal Not Available [facility] (Lab) [address] [facility], [place], [address], 12/03/2017 07:00:01 12/03/19 18 12/02/2017 urina lysis , compl ete glucose Negati ve mg/dL negati ve normal Not Available [facility] (Lab) [address] [facility], [place], [address], 12/03/2017 07:00:01 12/03/19 18 12/02/2017 urina lysis , compl ete protein Negati ve mg/dL negati ve normal Not Available [facility] (Lab) [address] [facility], [place], [address], 12/03/2017 07:00:01 12/03/19 18 12/02/2017 urina lysis , compl ete blood Negati ve negati ve normal Not Available [facility] (Lab) [address] [facility], [place], [address], 12/03/2017 07:00:01 12/03/19 18 12/02/2017 urina lysis , compl ete pH 6.0 5.0-9. 0 normal Not Available [facility] (Lab) [address] [facility], [place], [address], 12/03/2017 07:00:01 12/03/19 18 12/02/2017 urina lysis , compl ete nitrite Negati ve negati ve normal Not Available [facility] (Lab) [address] [facility], [place], [address], 12/03/2017 07:00:01 12/03/19 18 12/02/2017 urina lysis , compl ete leuk esterase Trace negati ve abnormal Not Available [facility] (Lab) [address] [facility], [place], [address], 12/03/2017 07:00:01 12/03/19 18 12/02/2017 urina lysis , compl ete specific gravity 1.020 1.001- 1.035 normal Not Available [facility] (Lab) [address] [facility], [place], [address], 12/03/2017 07:00:01 12/03/19 18 12/02/2017 urina lysis , compl ete red blood cell 0-2 #/hpf none,0 -2 normal Not Available [facility] (Lab) [address] [place], [address], 12/03/2017 07:00:01 12/03/19 18 12/02/2017 urina lysis , compl ete white blood cell 0-5 #/hpf none,0 -5 normal Not Available [facility] (Lab) [address] [place], [address], 12/03/2017 07:00:01 12/03/19 18 12/02/2017 urina lysis , compl ete bacteria None /hpf none normal Not Available [facility] (Lab) [address], [place], [address], 12/03/2017 07:00:01 12/03/19 18 12/02/2017 urina lysis , compl ete mucus Few /hpf none,t race,f ew normal Not Available [facility] (Lab) [address] [facility], [place], [address], 12/03/2017 07:00:01 12/03/19 18 12/02/2017 urina lysis , compl ete squam epi cells Modera te /hpf none abnormal Not Available [facility] (Lab) [address] [facility], [place], [address], 12/03/2017 07:00:01 12/03/19 18 12/02/2017 HbA1c (hemo globi n A1c), blood hemoglobin A1C 6.5 % 4 - 6 high Not Available [facility] [address] [facility] [address], [place], [address], 12/03/2017 18:54:16 12/03/19 18 12/02/2017 homoc ystei ne, blood homocysteine 10.4 umol/ L 6.6 - 17.8 Not Available [facility] [address] [facility] [address], [place], [address], 12/08/2017 17:59:22 12/04/19 18 12/03/2017 CBC WBC 5.0 10*3/ uL 3.5 - 10.0 Not Available [facility] [address] [facility] [address], [place], [address], 12/03/2017 18:54:19 12/04/19 18 12/03/2017 CBC RBC 4.86 10*6/ uL 3.9 - 5.10 Not Available [facility] [address], [place], [address], 12/03/2017 18:54:19 12/04/19 18 12/03/2017 CBC HGB 14.3 g/dL 12.0 - 15.0 Not Available [facility] [address], [place], [address], 12/03/2017 18:54:19 12/04/19 18 12/03/2017 CBC HCT 44.4 % 37.0 - 45.0 Not Available [facility] [address], [place], [address], 12/03/2017 18:54:19 12/04/19 18 12/03/2017 CBC MCV 91.0 fL 83 - 100 Not Available [facility] [address], [place], [address], 12/03/2017 18:54:19 12/04/19 18 12/03/2017 CBC MCH 29.5 pg 26.0 - 34.0 Not Available [facility] [address], [place], [address], 12/03/2017 18:54:19 12/04/19 18 12/03/2017 CBC MCHC 32.2 g/dL 32.0 - 35 Not Available [facility] [address], [place], [address], 12/03/2017 18:54:19 12/04/19 18 12/03/2017 CBC RDW 14.0 % 12.0 - 16.0 Not Available [facility] [address], [place], [address], 12/03/2017 18:54:19 12/04/19 18 12/03/2017 CBC plt 310 10*3/ uL 145 - 355 Not Available [facility] [address], [place], [address], 12/03/2017 18:54:19 12/04/19 18 12/03/2017 CBC MPV 7.8 fL 7.3 - 10.0 Not Available [facility] [address], [place], [address], 12/03/2017 18:54:19 12/04/19 18 12/03/2017 CBC gr% 43.1 % 49 - 79 low Not Available [facility] [address] [address], [place], [address], 12/03/2017 18:54:19 12/04/19 18 12/03/2017 CBC gr# 2.3 # 1.1 - 6.0 Not Available [facility] [address] [address], [place], [address], 12/03/2017 18:54:19 12/04/19 18 12/03/2017 CBC MO% 8.9 % 2.0 - 6.0 high Not Available [facility] [address] [address], [place], [address], 12/03/2017 18:54:19 12/04/19 18 12/03/2017 CBC MO# 0.4 # 0.3 - 1.0 Not Available [facility] [address] [address], [place], [address], 12/03/2017 18:54:19 12/04/19 18 12/03/2017 CBC ly% 48.0 % 19.0 - 47.0 high Not Available [facility] [address] [address], [place], [address], 12/03/2017 18:54:19 12/04/19 18 12/03/2017 CBC ly# 2.3 # 0.7 - 3.7 Not Available [facility] [address] [address], [place], [address], 12/03/2017 18:54:19 12/04/19 18 12/03/2017 magne sium, serum or plasm a magnesium 2.2 mg/dL 1.7 - 2.8 Not Available [facility] [address] [facility] [address], [place], [address], 12/07/2017 20:29:44 12/04/19 18 12/03/2017 CMP, serum or plasm a sodium 143 mmol/ L 136 - 145 Not Available [facility] [address] [facility] [address], [place], [address], 12/07/2017 20:29:45 12/04/19 18 12/03/2017 CMP, serum or plasm a potassium 4.4 mmol/ L 3.5 - 5.1 Not Available [facility] [address] [facility] [address], [place], [address], 12/07/2017 20:29:45 12/04/19 18 12/03/2017 CMP, serum or plasm a chloride 104 mmol/ L 98 - 107 Not Available [facility] [address] [facility] [address], [place], [address], 12/07/2017 20:29:45 12/04/19 18 12/03/2017 CMP, serum or plasm a carbon dioxide 30 mmol/ L 23 - 31 Not Available [facility] [address] [facility] [address], [place], [address], 12/07/2017 20:29:45 12/04/19 18 12/03/2017 CMP, serum or plasm a anion gap 13.4 7.0 - 34.0 Not Available [facility] [address] [facility] [address], [place], [address], 12/07/2017 20:29:45 12/04/19 18 12/03/2017 CMP, serum or plasm a glucose 84 mg/dL 74 - 106 Not Available [facility] [address] [facility] [address], [place], [address], 12/07/2017 20:29:45 12/04/19 18 12/03/2017 CMP, serum or plasm a BUN 10.4 mg/dL 6 - 20 Not Available [facility] [address] [facility] [address], [place], [address], 12/07/2017 20:29:45 12/04/19 18 12/03/2017 CMP, serum or plasm a creatinine 0.9 mg/dL 0.5 - 1.2 Not Available [facility] [address] [facility] [address], [place], [address], 12/07/2017 20:29:45 12/04/19 18 12/03/2017 CMP, serum or plasm a calcium 10.4 mg/dL 8.4 - 10.5 Not Available [facility] [address] [facility] [address], [place], [address], 12/07/2017 20:29:45 12/04/19 18 12/03/2017 CMP, serum or plasm a total protein 7.6 g/dL 6.4 - 8.3 Not Available [facility] [address] [facility] [address], [place], [address], 12/07/2017 20:29:45 12/04/19 18 12/03/2017 CMP, serum or plasm a albumin 4.7 g/dL 3.5 - 4.8 Not Available [facility] [address] [facility] [address], [place], [address], 12/07/2017 20:29:45 12/04/19 18 12/03/2017 CMP, serum or plasm a globulin 2.9 g/dL 2.3 - 3.5 Not Available [facility] [address] [facility] [address], [place], [address], 12/07/2017 20:29:45 12/04/19 18 12/03/2017 CMP, serum or plasm a A/G 1.6 # 9 - 56 low Not Available [facility] [address] [facility] [address], [place], [address], 12/07/2017 20:29:45 12/04/19 18 12/03/2017 CMP, serum or plasm a alk phos 89 U/L 42 - 141 Not Available [facility] [address] [facility] [address], [place], [address], 12/07/2017 20:29:45 12/04/19 18 12/03/2017 CMP, serum or plasm a ALT 31 U/L 7 - 34 Not Available [facility] [address], [place], [address], 12/07/2017 20:29:45 12/04/19 18 12/03/2017 CMP, serum or plasm a AST 24 U/L 7 - [address] [facility] [address], [place], [address], 12/07/2017 20:29:45 12/04/19 18 12/03/2017 CMP, serum or plasm a total bilirubin 0.4 mg/dL 0 - 1.2 Not Available [facility] [address] [facility] [address], [place], [address], 12/07/2017 20:29:45 12/04/19 18 12/03/2017 CMP, serum or plasm a age 37 years Not Available [facility] [address] [facility] [address], [place], [address], 12/07/2017 20:29:45 12/04/19 18 12/03/2017 CMP, serum or plasm a sex multiplier 0.742 # Not Available [facility] [address] [facility] [address], [place], [address], 12/07/2017 20:29:45 12/04/19 18 12/03/2017 lipid panel , serum cholesterol 200 mg/dL 100 - 199 high Not Available [facility] [address] [facility] [address], [place], [address], 12/07/2017 20:29:46 12/04/19 18 12/03/2017 lipid panel , serum triglyceride 116 mg/dL 0 - 150 Not Available [facility] [address] [facility] [address], [place], [address], 12/07/2017 20:29:46 12/04/19 18 12/03/2017 lipid panel , serum HDL 59 mg/dL 30 - 85 Not Available [facility] [address] [facility] [address], [place], [address], 12/07/2017 20:29:46 12/04/19 18 12/03/2017 lipid panel , serum LDL-calculat ed 118 mg/dL 0 - 100 high Not Available [facility] [address] [facility] [address], [place], [address], 12/07/2017 20:29:46 12/04/19 18 12/03/2017 lipid panel , serum C/H 3.4 # 1.0 - 4.0 Not Available [facility] [address] [facility] [address], [place], [address], 12/07/2017 20:29:46 12/04/19 18 12/03/2017 TSH, serum or plasm a TSH .7 mIU/L 0.5 - 6.8 Not Available [facility] [address] [facility] [address], [place], [address], 12/11/2017 11:04:27 12/04/19 18 12/03/2017 vitam in D, 25-hy droxy , total , serum vitamin D 13.0 NG/dL 31 - 100 critical low Not Available [facility] [address] [facility] [address], [place], [address], 12/11/2017 11:04:30 08/17/20 17 08/05/2017 elect rodrigo rodriguez am No observ ation record ed. [email or web address] Not Available 08/17 17:33:24 Result Notes None recorded. Problems Name Problem SNOMED Code Status Onset Date Resolution Date Notes Provider Name and Address Organization Details Recorded Time Kidney disease 17663655 Active Kiarra schafer [facility] 5 10:22:31 Obesity 653204447 Active HOWIE schafer [facility] 6 13:57:32 Kidney stone 35178494 Active Jason Mello MD [address], [place], [address], [facility] 5 11:56:28 Dysphagia [id number] Fawad Mello MD [address], [place], [address], [place] [facility] 5 10:32:09 Diverticular disease [id number] Fawad Mello MD [address], [place], [address], [place] [facility] 5 11:56:28 Gastritis 2045834 Active Cornelia Dumasia null, [place] - [facility] 5 11:21:41 Esophagitis [id number] Fawad Mello MD [address], [place], [address], [facility] 5 11:36:09 Body mass index 30+ - obesity 379820061 Active Cornelia Dum[place], [place] [facility] 6 17:12:50 Petechiae of skin [id number] Fawad Mello MD [address], [place], [address], [place] [facility] 5 11:36:09 Upper respiratory infection [id number] Fawad Mello MD [address], [place], [address], [place] [facility] 5 11:56:28 Vitamin D deficiency 21670219 Active Cornelia Dum[place], [place] [facility] 6 10:48:46 Pain in lower limb 20707812 Active Vianney Hidalgo [place] [facility] 5 10:33:06 Acute pharyngitis 354673021 Active Cornelia Dum[place] [facility] 5 10:31:27 Allergic rhinitis 49591326 Active HOWIE CHAMBERS null, [place] [facility] 6 13:57:32 Chronic back pain 047173936 Active Cornelia Sandsasia [place] [facility] 6 17:12:50 Dizziness 318530862 Active Cornelia Dum[place] [facility] 6 17:12:50 Hyperuricemia 96403738 Active Cornelia [place] [facility] 6 17:12:50 Hyperlipidemia 72347040 Active Cornelia [place]ands[place] [facility] 6 17:12:50 Constipation 86829720 Active Cornelia [place]ands[place] [facility] 6 17:12:50 Low back pain 908952439 Active Vianney [place]idalgo [place] [facility] 5 10:33:06 Sciatica 10503165 Active Vianney [place]idal[place] [facility] 5 10:33:06 Depressive disorder 92037925 Active Cornelia Sandsasia [place] [facility] 6 17:12:50 Asthma 740872705 Active Venecia Paez [place], [place] [facility] 6 13:25:29 Migraine 37384132 Active HOWIE CHAMBERS null, [place] [facility] 6 13:57:32 Problem Notes None recorded. Procedures Surgical History Date Name Laterality Status Provider Name and Address Organization Details Recorded Time 08/26/20 17 Date of Last Pap Smear completed Corrie Gonsales [place] - [facility] 12/02/2017 11:54:17 11/19/19 17 Most Recent Mammogram completed Corrie Gonsales [place] - [facility] 12/02/2017 11:53:45 09/20/19 12 Hysterectomy completed Kiarra Aldana [place] - [facility] 07/30/2014 12:09:27 09/20/19 08 Breast Surgery completed Kiarra Aldana [place] - [facility] 07/30/2014 12:09:27 09/20/19 04 Tubal Ligation completed Kiarra Aldana [facility] 07/30/2014 12:09:27 Imaging Results Imaging Date Name Status LastModified by Organization Details LastModified Time 08/05/2017 electrocardiogram completed [email or web address] Informa tion not available 08/17/2017 17:33:24 Procedure Notes None recorded. Medical Equipment None Reported. Allergies Allergen ID Allergen Name Allergen Category Reaction Reaction Severity Criticality Documentation Date Start Date Code Code System Note Provider Name and Address Organization Details Recorded Time 2145 penicilli nase Not available other moderate Not available 06/19/2014 61045 UNK thora t closu re Not Available Not Available Not Available 2146 [place] Aspirin medicatio n hives Not available Not available 06/19/2014 21295 8 RxNorm Not Available Not Available Not Available Medications Name Sig Start Date Stop Date Status Note LastModified by Organization Details LastModified Time Miralax 17 gram oral powder packet Take 1 packet every day by oral route as directed for 30 days. 04/02 completed Not Available Not Available Not Available cyclobenzap rine 10 mg tablet Take 1 tablet every day by oral route at bedtime for 15 days. 2014 active Not Available Not Available Not Avai lable albuterol sulfate 0.63 mg/3 mL solution for nebulizatio n use 1 ampule as needed 2017 active Not Available Not Available Not Avai lable atorvastati n 20 mg tablet take 1 tablet by mouth everyday active Not Available Not Available No t Available albuterol sulfate 2.5 mg/3 mL (0.083 %) solution for nebulizatio n USE IN NEBULIZER 1 AMPULE 3ML NEEDED FOR 90 DAYS active Not Available Not Available No t Available azithromyci n 250 mg tablet TAKE 2 TABLETS (500 MG) BY ORAL ROUTE ONCE DAILY FOR 1 DAY THEN 1 TABLET (250 MG) BY ORAL ROUTE ONCE DAILY FOR 4 DAYS active Not Available Not Available No t Available clarithromy carmina 500 mg tablet Take 1 tablet every 12 hours by oral route after meals for 15 days. 04/19 completed Not Available Not Available Not Available sumatriptan 100 mg tablet active Not Available Not Available Not Available hydrocodone 5 mg-acetamin ophen 325 mg tablet Take 1 tablet every 6-8 hours by oral route as needed for 10 days. 03/19 completed Not Available Not Available Not Available prednisone 20 mg tablet Take 2 tablets every day by oral route for 7 days. 2014 active Not Available Not Available Not Avai lable Doc-Q-Lace 100 mg capsule Take 1 capsule every day by oral route as needed for 15 days. active Not Available Not Available No t Available topiramate 25 mg tablet Take 1 tablet twice a day by oral route for 90 days. active Not Available Not Available No t Available metronidazo le 500 mg tablet 04/02 completed Not Available Not Available Not Available omeprazole 40 mg capsule,del ayed release take 1 tablet by mouth everyday active Not Available Not Available No t Available tramadol 50 mg tablet active Not Available Not Available No t Available amitriptyli ne 50 mg tablet active Not Available Not Available Not Available bupropion HCl SR 100 mg tablet,12 hr sustained-r elease active Not Available Not Available Not Available butalbital- acetaminoph en-caffeine 50 mg-325 mg-40 mg tablet active Not Available Not Available Not Available bupropion HCl 100 mg tablet active Not Available Not Available Not Available amitriptyli ne 25 mg tablet take 1 tablet by mouth everyday active Not Available Not Available No t Available Celexa 20 mg tablet Take 1 tablet every day by oral route for 90 days. 2015 active Not Available Not Available Not Avai lable hydrocodone 7.5 mg-acetamin ophen 325 mg tablet 03/19 completed Not Available Not Available Not Available ranitidine 150 mg tablet Take 1 tablet(s) by oral route as directed for 30 days. 03/19 completed Not Available Not Available Not Available buspirone 10 mg tablet active Not Available Not Available Not Available Advair Diskus 250 mcg-50 mcg/dose powder for inhalation Inhale 1 puff(s) twice a day by inhalatio n route for 90 days. active Not Available Not Available No t Available gabapentin 300 mg capsule 1 caps 3 times a day active Not Available Not Available No t Available diclofenac sodium 75 mg tablet,flavio yed release Take 1 tablet twice a day by oral route for 10 days. 06/29 completed Not Available Not Available Not Available montelukast 10 mg tablet Take 1 tablet(s) every day by oral route for 90 days. active Not Available Not Available No t Available ranitidine 150 mg capsule TAKE 1 TAB BY MOUTH EVERY DAY DIRECTED FOR 30 DAYS 2016 active Not Available Not Available Not Avai lable alprazolam 2 mg tablet active Not Available Not Available Not Available ibuprofen 600 mg tablet active Not Available Not Available Not Available polyethylen e glycol 3350 17 gram/dose oral powder 07/21 completed Not Available Not Available Not Available Q-Tussin 100 mg/5 mL oral liquid 07/21 completed Not Available Not Available Not Available Vitamin D2 1,250 mcg (50,000 unit) capsule take 1tablet once a week active Not Available Not Available No t Available fluticasone propionate 50 mcg/actuati on nasal spray,suspe nsion INHALE ONE SPRAY EVERY DAY BY INTRANASA L ROUTE FOR 7 DAYS. active Not Available Not Available No t Available naproxen 500 mg tablet Take 1 tablet twice a day by oral route. active Not Available Not Available No t Available Ventolin HFA 90 mcg/actuati on aerosol inhaler TAKE 2 PUFFS EVERY 6 HOURS NEEDED active Not Available Not Available No t Available escitalopra m 20 mg tablet 12/02 completed Not Available Not Available Not Available Vitamin D3 25 mcg (1,000 unit) tablet 04/02 completed Not Available Not Available Not Available Vitamin D3 25 mcg (1,000 unit) capsule Take 1 capsule by oral route. 04/02 completed Not Available Not Available Not Available topiramate 50 mg tablet active Not Available Not Available Not Available Symbicort 160 mcg-4.5 mcg/actuati on HFA aerosol inhaler USE ONCE A DAY 2017 active Not Available Not Available Not Avai lable cholecalcif jacek (vitamin D3) 1,250 mcg (50,000 unit) capsule Take 1 capsule every week by oral route. 2017 active Not Available Not Available Not Avai lable Mucinex DM 60 mg-1,200 mg tablet,exte nded release 12 hr Take 1 tablet twice a day by oral route for 5 days. 07/21 completed Not Available Not Available Not Available Flovent Diskus 250 mcg/actuati on powder for inhalation Inhale 1 puff twice a day by inhalatio n route. 04/19 completed Not Available Not Available Not Available Dulera 100 mcg-5 mcg/actuati on HFA aerosol inhaler active Not Available Not Available Not Available Contour Next Test Strips Take 1 strip twice a day by miscell. route for 90 days. 2017 active Not Available Not Available Not Avai lable Fioricet 50 mg-300 mg-40 mg capsule Take 1 capsule(s ) every 6 hours by oral route as needed for 90 days. 2016 active Not Available Not Available Not Avai lable Vitals Date Recorded Body height Body temperature Body mass index (BMI) Body weight Oxygen saturation Oxygen saturation in Arterial blood by Pulse oximetry Heart rate Systolic blood pressure Diastolic blood pressure Provider Name and Address Organization Details Last Updated DateTime 7 160.02 cm 97.6 [degF] 35.3 kg/m2 68286.8 8 g 95 % 95 % 70 /min 94 mm[Hg] 62 mm[Hg] Corrie Gonsales [facility] 7 10:17:07 Date Recorded Body height Body temperature Heart rate Oxygen saturation Oxygen saturation in Arterial blood by Pulse oximetry Body mass index (BMI) Body weight Systolic blood pressure Diastolic blood pressure Provider Name and Address Organization Details Last Updated DateTime 8 160.02 cm 98 [degF] 74 /min 96 % 96 % 35.1 kg/m2 82080.2 9 g 120 mm[Hg] 80 mm[Hg] Rosario Villarreal [facility] 8 10:11:35 Date Recorded Body height Body temperature Body mass index (BMI) Body weight Oxygen saturation Oxygen saturation in Arterial blood by Pulse oximetry Heart rate Systolic blood pressure Diastolic blood pressure Provider Name and Address Organization Details Last Updated DateTime 8 160.02 cm 96.8 [degF] 34.2 kg/m2 34677.3 3 g 98 % 98 % 65 /min 123 mm[Hg] 84 mm[Hg] Corrie Gonsales [facility] 8 11:57:46 Social History Question Answer Notes LastModified by Organizat ion Details LastModified Time Tobacco Smoking Status Never Smoker Rachel schafer [facility] 06/19/2014 12:28:53 What Is Your Level Of Alcohol Consumption? None [email or web address] Information not available 06/19/2014 How Many Years Have You Consumed Alcohol? 0 Information not available 07/08/2015 Are You Blind Or Do You Have Difficulty Seeing? Yes Information n ot available 07/30/2014 What Is Your Level Of Caffeine Consumption? None [email or web address] Information not available 06/19/2014 How Much Tobacco Do You Chew? None Information not available 07/08/2015 Are You Currently Employed? No [email or web address] Information not available 09/28/2017 Are You Deaf Or Do You Have Serious Difficulty Hearing? No Information not available 07/30/2014 What Type Of Diet Are You Following? REGULAR [email or web address] Information n ot available 06/19/2014 Which Illicit Or Recreational Drugs Have You Used? NONE [email or web address] Information not available 06/19/2014 Education 4 Year College [email or web address] Information not available 09/28/2017 What Is The Highest Grade Or Level Of School You Have Completed Or The Highest Degree You Have Received? [id number] Information not available 12/02/2017 What Is Your Occupation? NONE [email or web address] Information not available 12/02/2017 How Many Days Of Moderate To Strenuous Exercise, Like A Brisk Walk, Did You Do In The Last 7 Days? 3 [email or web address] Information not available 12/02/2017 On Those Days That You Engage In Moderate To Strenuous Exercise, How Many Minutes, On Average, Do You Exercise? 3 [email or web address] Information not available 12/02/2017 How Hard Is It For You To Pay For The Very Basics Like Food, Housing, Medical Care, And Heating? [id number] [email or web address] Information not available 12/02/2017 Are There Any Guns Present In Your Home? Yes [email or web address] Information not available 09/28/2017 Hard Of Hearing Or Deaf In One Or Both Ears? 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 No [email or web address] Information no t available 09/28/2017 Live Alone Or With Others? With Others [email or web address] Information not available 06/19/2014 Are There Any Behavioral, Verbal Or Physical Signs Of Dental Pain? No [email or web address] Information not available 09/28/2017 Do You Have Swollen, Bleeding, Ulcer, White/red Patches, Redness Under Dentures? No [email or web address] Information not available 09/28/2017 Do You Have Constant Bad Breath? No Information not available 09/28/2017 Do You Have More Than One Broken Tooth Or Roots? No [email or web address] Information not available 09/28/2017 Do You Have Swollen Tongue? No [email or web address] Information not available 09/28/2017 Do You Present Social Anxiety Symptoms Such As Isolation Or Activities Of Independent Living? Yes [email or web address] Information not available 09/28/2017 Are There Any Household/ Environmental Risks Affecting Your Health? No [email or web address] Information not available 09/28/2017 Is There Any Family History Of Substance Use Such As Drugs Or Alcohol? No [email or web address] Information not available 12/02/2017 Any Family Mental Health History? No [email or web address] Information not available 12/02/2017 Do You Have History Of Mental Health Conditions? No [email or web address] Information n ot available 12/02/2017 1. Over The Past Two Weeks Have You Ever [place] Down, Depressed Or Hopeless? Yes Information not available 07/30/2014 1. Depressed Mood Most Of The Day, Neraly Everyday? Yes Information not available 10/02/2014 2. Markedly Diminished Interest Or Pleasure In Almost All Activities Most Of The Day, Nearly Everyday? Yes Information not available 07/30/2014 2. Over The Past Two Weeks Have You [place] No Pleasure Or Interest In Doing Things? Yes Information not available 07/30/2014 3. Significant Weight Loss Or Weight Gain? Yes Information not available 07/30/2014 4. Insomnia/ Hypersomnia? Yes Information not available 10/02/2014 5. Psychomotor Agitation/ Retardation? Yes Information not available 07/30/2014 6. Fatigue (loss Of Energy)? Yes Information not available 07/30/2014 8. Impaired Concentration (indecisiveness)? Yes Information no t available 07/30/2014 7. Feelings Of Worthlessness (guilt)? No Information not available 07/30/2014 9. Recurrent Thoughts Of Or Suicide Attempt? No Information not available 10/02/2014 Smoking Assessment 09/28/2017 [email or web address] Inform ation not available 09/28/2017 Drinking Assessment 09/28/2017 Information not available 09/28/2017 Depression Screenin09/28/2017 Information not available 09/28/2017 Have You Ever [place] Like You Should Cut Down On Your Drinking?: No Information not available 07/08/2015 Have People Annoyed You By Criticizing Your Drinking?: No Information not available 07/08/2015 Have You Ever [place] Bad Or Guilty About Your Drinking?: No Information not available 07/08/2015 Have You Ever Had A Drink First Thing In The Morning To Steady Your Nerves Or To Get Rid Of A Hangover (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 Do You Snore Or Have Been Told That You Snore?: Yes Information not available 07/30/2014 2. Do You Wake Up Choking Or Gasping?: Yes Information not available 07/30/2014 3. Excessive Daytime Sleepiness?: Yes Information not available 07/30/2014 Marital Status Informatio n not available 06/19/2014 What Was The Date Of Your Most Recent Tobacco Screening? 12/02/2017 Information not available 04/13/2019 How Many Children Do You Have? 2 [email or web address] Information not available 06/19/2014 Performs Monthly Self-breast Exam? Yes [email or web address] Information no t available 09/28/2017 Do You Use Protection During Sex? No Information not available 07/08/2015 What Is Your Relationship Status? [email or web address] Information not available 12/02/2017 Seat Belts Used Routinely Yes [email or web address] Information not available 09/28/2017 Are You Sexually Active? Yes Information not available 07/08/2015 Smoke Alarm In Home Yes [email or web address] Information not available 09/28/2017 At What Age Did You Start Smoking Tobacco? 0 Information not available 07/08/2015 How Much Tobacco Do You Smoke? No [email or web address] Information not available 06/19/2014 General Stress Level High [email or web address] Information not available 09/28/2017 Do You Feel Stressed (tense, Restless, Nervous, Or Anxious, Or Unable To Sleep At Night)? [id number] [email or web address] Information not available 12/02/2017 Do You Use Sunscreen Routinely? Yes Information not available 09/28/2017 How Many Years Have You Smoked Tobacco? 0 [email or web address] Information not available 12/02/2017 Sex: Unknown Functional Status Question Answer Note LastModified by Organizat ion Details LastModified Time Do you have difficulty walking or climbing stairs? Yes Information not available 07/30/2014 Do you have transportation difficulties? No [email or web address] Information not available 12/02/2017 Do you have difficulty doing errands alone? No Information not available 07/30/2014 Are you able to care for yourself? Yes [email or web address] Information n ot available 06/19/2014 Do you have difficulty dressing or bathing? No Information not available 07/30/2014 What is your exercise level? Occasional 2TIMES A WEEK Information not available 06/19/2014 Mental Status Question Answer Note LastModified by Organization D etails LastModified Time Do you have difficulty concentrating, remembering or making decisions? Yes Information no t available 07/30/2014 Family History Relationship Description Onset Age of this Age Resolved Age Notes LastModified by Organization Details LastModified Time Mother Diabetes mellitus CHOLES TEROL [email or web address] Not available 03/25/2016 13:24:31 Father Diabetes mellitus HIGH BLOOD PRESSU RE, HEART DESEAS E AND CHOLES TEROL [email or web address] Not available 03/25/2016 13:24:31 Medical History Condition Response Coronary Artery Disease N Other Y Gout N Kidney Stones N Blood Diseases N Hyperthyroidism N Breast Cancer N Blood Transfusion N mrsa exposure N Lung Disease N COPD N Hypothyroidism N Depression Y Developmental or Behavioral Disorders N Defects or Inherited Disease N Breast Problem N Anesthesia Complications N Meniere's disease N Anxiety Disorder N Muscle, Joint, or Bone Problems N Obesity N Vision or Eye Problems N Arthritis N Chronic ear infections N Polyps N Infertility N Mental Disorder N Cancer N Varicosities N Stroke N ADHD N Endometriosis N Bladder or Kidney Problems N High Cholesterol N Liver Disease N Headaches N Fibromyalgia N Kidney Disease N Heart Problems N Ear or Hearing Problems N Hospitalizations N Thyroid Problems N GI Problems N Skin Problems N Eating Disorder N Anemia N Constipation N Mental Illness N Ovarian Cancer N Diabetes N Difficulty swallowing N Bedwetting N Seizures/Epilepsy N Tuberculosis N AIDS/HIV N Congestive Heart Failure (CHF) N Eczema N Diverticulitis N Abuse/Domestic Violence N Nasal polyps N Asthma Y Allergies N Reflux/GERD N Hepatitis N Heart Disease N Pulmonary Embolism N Pre-Eclampsia N Hypertension Y Chicken Pox N Autism Spectrum Disorder (ASD) N Osteoporosis N Thrombophilias N Gynecological History Statement/Question Response Sexually Active? Y STIs/STDs N Date of Last Pap Smear 08/26/2017 Sexual Problems? N Age at Menarche 11 Current Control Method Hysterectom y Most Recent Mammogram 11/18/2016 Obstetrics History GPAL:G 0 P 0 0 0 0 Past Encounters Encounter ID Performer Location Encounter Start Date Encounter Closed Date Diagnosis/Indication Diagnosis SNOMED-CT Code Diagnosis ICD10 Code Diagnosis Note [id number] Rachel Mello_C AM [address] [address] 06/19/2014 11:12:34 06/19/2014 13:36:32 Low back pain 426869052 Sciatica 79495398 Depressive disorder 58631389 Asthma 879108824 Migraine 32997157 [id number] Rosalia Mello_C AM [address] [address] 07/30/2014 11:37:06 07/30/2014 12:57:43 Sciatica 79702109 Low back pain 898300539 Kidney disease 66724491 Migraine 89596630 Obesity 085841711 [id number] Rosalia Mello_C AM [address] [address] 10/02/2014 09:49:55 10/02/2014 12:19:12 Kidney stone 91560163 Migraine 28153391 Dysphagia 72878361 [id number] Riaz_C AM [address] [address] 12/04/2014 09:52:24 12/04/2014 11:33:08 Depressive disorder 47721058 Migraine 77853367 Kidney stone 20892283 Obesity 839443225 Diverticular disease 184060139 Gastritis 7420664 Esophagitis 19683331 Body mass index 30+ - obesity 004622108 Adult heal th examination 041836480 Petechiae of skin 526210886 Asthma [id number] Lakisha Mello_C [address] [address] 01/01/2015 09:48:41 01/01/2015 12:23:25 Asthma 040861446 Upper resp iratory infection 12666111 Depressive disorder 73370803 Diverticular disease 440088746 Gastritis 7576031 Kidney stone 35173296 Low back pain 992694564 Obesity 709140821 Petechiae of skin 965942719 Sciatica 60325558 [id number] Lakisha Mello_C [address] [address] 01/29/2015 09:59:17 01/29/2015 11:40:57 Migraine 02447053 Administra tion of tetanus vaccine 847647341 Sciatica 95205336 Petechiae of skin 381505569 Esophagitis 55772033 Gynecologi c examination 37265862 [id number] Cornelia Shavongus Maxstephan_C [address] [address] 07/08/2015 09:46:55 07/08/2015 11:18:44 Asthma 776775531 J45.30 Low back pain 815215500 M54.5 Migraine 15354005 G43.90 9 Gastritis 8192447 K29.00 gi fu Allergic rhinitis 276832 04 J30.1 Depressive disorder 3548 9007 F32.9 [id number] HOWIE CHAMBERS Maxstephan_C [address] [address] 07/30/2015 09:33:49 07/30/2015 10:35:26 Low back pain 249729907 M54.5 Migraine 36444225 G43.50 9 Pain in lower limb 74634 006 M79.605 M79.604 Depressive disorder 3548 9007 F33.41 Sciatica 28052810 M54.31 M54.32 Vitamin D deficiency 347 58645 E55.9 [id number] Rosalia Ahsan Santanastephan_C [address] [address] 09/02/2015 09:40:40 09/02/2015 10:35:54 Acute pharyngitis 891067468 J02.9 J02.8 tonsilopha ryngitis Asthma 849240679 J45.30 Body mass index 30+ - obesity 685215373 Z68.35 [id number] Yolanda Velazco [place] [address] 6 10/17/2015 13:09:45 10/17/2015 14:09:31 Body mass index 30+ - obesity 594723400 Z68.35 Obesity 413233197 E66.9 Vitamin D deficiency 347 94372 E55.9 Depressive disorder 3548 9007 F32.9 Migraine 41738785 G43.90 9 Allergic rhinitis 046646 04 J30.9 [id number] Cornelia Kamryn Mello_C [place] [address] 6 12/30/2015 11:51:07 12/30/2015 13:02:02 Administration of diphtheria and tetanus vaccine 78076658 Z23 Chronic back pain 403204 002 G89.29 upper and lower back pain Body mass index 30+ - obesity 269323759 Z68.34 Dizziness 481180928 R42 [id number] Cornelia Nails [address] [address] 03/25/2016 13:08:15 03/25/2016 14:34:04 Chronic back pain 367718179 G89.29 upper and lower back pain Depressive disorder 3548 9007 F32.9 Dizziness 157593791 R42 Hyperuricemia 39825471 E 79.0 Vitamin D deficiency 347 96674 E55.9 Hyperlipidemia 18764037 E78.5 Body mass index 30+ - obesity 462320271 Z68.34 Constipation 82038578 K5 9.00 [id number] MD Jesu Salguero [address] [address] 06/29/2016 10:00:38 06/29/2016 10:46:31 Upper respiratory infection 78876618 J06.9 Arthritis/arthrosis 2741 75480 M19.90 Pure hypercholesterolemia 104227577 E78.0 Vitamin D deficiency 347 50007 E55.9 Cobalamin deficiency 190 289540 E53.8 Screening mammography 24 135120 Z12.31 Gastroesop hageal reflux disease 402547178 K21.9 [id number] MD Jesu Salguero [address] [address] 07/21/2016 11:53:56 07/21/2016 12:41:20 Asthma 866603497 J45.909 Upper resp iratory infection 95963050 J06.9 Pain in throat 266809021 R07.0 Cough 75362387 R05 Pain of breast 70209126 N64.4 Chronic back pain 568253 002 G89.29 Body mass index 30+ - obesity 879302483 Z68.35 Migraine 74700094 G43.90 9 Acute sinusitis 84014365 J01.90 Polyp of colon 95612186 K63.5 [id number] [facility] [address] [address] 08/25/2016 10:03:04 08/25/2016 11:29:34 Asthma 326758938 J45.909 Migraine 68767117 G43.90 9 Depressive disorder 3548 9007 F32.9 Abnormal c ervical Papanicolaou smear 182526271 R87.619 [id number] MD Jesu Salguero [address] [address] 11/02/2016 15:08:24 11/02/2016 18:03:12 Chronic back pain 276194861 G89.29 Vitamin D deficiency 347 83718 E55.9 Migraine 45720961 G43.90 9 Gastroesop hageal reflux disease 007072249 K21.9 Asthma 029945031 J45.90 9 Low back pain 533038193 M54.5 Hypoglycemia 380653688 E 16.2 Menopausal flushing 1984 45020 N95.1 Abdominal pain 32367172 R10.9 Pure hypercholesterolemia 645493053 E78.00 Cobalamin deficiency 190 480846 E53.8 High gluco se level in blood 671583907 R73.9 [id number] MD Jesu Salguero [address] [address] 11/16/2016 13:41:10 11/16/2016 14:51:46 Vitamin D deficiency 87967679 E55.9 Depressive disorder 3548 9007 F32.9 Asthma 990595583 J45.90 9 Migraine 08780438 G43.90 9 Gynecologi c examination 41799980 Z01.419 Mixed hyperlipidemia 267 211845 E78.2 START DIET AND EXERCISE Hypoglycemia 435679732 E 16.2 Obstructiv e sleep apnea syndrome 33979917 G47.33 [id number] MD Jesu Salguero [address] [address] 01/19/2017 14:01:40 01/19/2017 14:41:45 Asthma 013214069 J45.909 Body mass index 30+ - obesity 807313324 Z68.36 Obstructiv e sleep apnea syndrome 64024434 G47.33 Reactive hypoglycemia 31 7006 E16.1 Mixed hyperlipidemia 267 775185 E78.2 START DIET AND EXERCISE [id number] Italia Nails [address] [address] 03/19/2017 12:02:57 03/19/2017 12:44:00 Vitamin D deficiency 16864270 E55.9 Hyperlipidemia 68312649 E78.5 Body mass index 30+ - obesity 212572711 Z68.39 Hyperglycemia 96166055 R 73.9 Migraine 76074310 G43.90 9 Obstructiv e sleep apnea syndrome 44459038 G47.33 Pure hypercholesterolemia 720334301 E78.00 [id number] MD Jesu Salguero [address] [place] [address] 03/19/2017 15:56:00 03/19/2017 15:56:09 [id number] Italia Nails [address] [address] 04/02/2017 11:54:03 04/02/2017 13:39:02 Hyperlipidemia 63810411 E78.5 Diabetes mellitus 071825 09 E11.9 Body mass index 30+ - obesity 841236827 Z68.39 [id number] Italia Nails [address] [address] 04/19/2017 09:43:40 04/19/2017 10:32:09 Hyperlipidemia 93867403 E78.5 Asthma 687438970 J45.90 9 Diabetes mellitus 980643 09 E11.9 Cough 89261349 R05 Acute pharyngitis 428733 003 J02.9 [id number] Italia Nails AM [address] [address] 08/05/2017 09:31:16 08/05/2017 10:50:21 Asthma 323090303 J45.909 Migraine 18862975 G43.90 9 Obesity 435557007 E66.9 Diabetes mellitus 558740 09 E11.9 Vitamin D deficiency 347 03063 E55.9 Hyperlipidemia 88337057 E78.5 Gastroesop hageal reflux disease 744586815 K21.9 Active or passive immunization 022496663 Z23 Uncontroll ed type 2 diabetes mellitus 117014549 E11.65 Cobalamin deficiency 190 797423 E53.8 [id number] Italia Nails [facility] [address] [place] [address] 08/09/2017 11:19:39 08/09/2017 11:19:50 [id number] MD Jesu Salguero [address] [address] 09/28/2017 09:47:56 09/28/2017 11:15:07 Asthma 509536542 J45.909 I discussed with the patient the risks and complicati ons of asthma and the importance of continuing prescribed medication s and follow-up visits. Patient was provided with an Asthma Action Plan, which included: Peak Flow between 80%-100%- No cough/ wheezing, can work/play- No therapy needed. Peak Flow between 50%-79%- coughing/ wheezing, chest tightness, nighttime symptoms- Albuterol inhaler 1-2 puffs every 6 hours PRN. Peak Flow <49%- medication is not working, breathing is hard and fast, nostrils open wide, cannot walk/talk, ribs show- Albuterol inhaler and Prednisone . Call your doctor immediatel y. The patient was transferre d to another exam room where the Nebulizer Treatment was performed. Depressive disorder 7008 9007 F32.9 Migraine without aura 56 226724 G43.009 Body mass index 30+ - obesity 364999699 Z68.35 Low back pain 070961241 M54.5 mild , remains the same as before Active or passive immunization 178451923 Z23 Hormone re placement therapy 048931012 Z79.890 Vitamin D deficiency 347 33692 E55.9 Pure hypercholesterolemia 508160074 E78.00 Diabetes mellitus 197298 09 E11.9 Diet and exercise , Last HbA1c 6.7 Obesity 623218998 E66.9 [id number] Italia Nails AM [place] [address] [place] [address] 12/02/2017 11:17:01 12/02/2017 13:04:22 Asthma 431533481 J45.909 Depressive disorder 3548 9007 F33.8 stable per pt Migraine 41480952 G43.90 9 Adult heal th examination 624605242 Z00.00 Body mass index 30+ - obesity 969856548 Z68.34 Obstructiv e sleep apnea syndrome 80995162 G47.33 Acute pharyngitis 673835 003 J02.9 Prediabetes 966014925 R7 3.03 [id number] Italia Washburn[address] [place] [address] 12/02/2017 18:01:44 12/02/2017 18:25:46 Health Concerns Section Related Observation LastModified by Organization Detai ls LastModified Time None Recorded Concern Status LastModified by Organization Details LastModified Time None Recorded Advance Directives Directive None Recorded Payers Encounter Date Sequence Insurance Name Policy Number Policy Fernandes Covered Member ID Fernandes Member ID Guarantor Name 08/05/2017 1 [place] [facility] (MEDICAID HMO) [id number] [id number] Regina Lemoniciano 08/05/2017 1 [place] [facility] (MEDICAID HMO) [id number] [id number] Regina Larson 09/28/2017 1 [place] [facility] (MEDICAID HMO) [id number] Gutierrezo [id number] Regina Larson 12/02/2017 1 [place] [facility] [place] [place] (MEDICAID HMO) [id number] Gutierrezo [id number] Regina Larson 12/02/2017 1 [place] [facility] [address] Larson [id number] Regina Larson Notes Date Note Type Note Provider Name and Address Organization Details Recorded Time 08/05/2017 text/html Asthma F/UReport ed bypatient.Quality:sym ptoms worse in the evening Duration:attacks are frequent Onset/Timing:chronic Context:same Modifying Factors:exercise Associated Symptoms:no fever; no fatigue; no irritability; no cough; normal appetite; no changes in productivity; no shortness of breath PT IS FEELING WELL TODAY. PT IS ACTIVE AND ALERT. PT REQUESTING RX REFILLS. PER PT ASTHMA IS WELL CONTROLLED WITH INHALER. ALSO, PT HAS MIGRAINES AND IS AN MISSY DAY THING. PER PT TAKES MEDICATION FOT MIGRAINES. NO NEW PROBLEMS OR COMPLAINTS. Italia schafer, [facility] 08/05/2017 10:58:21 09/28/2017 text/html Asthma F/UReport ed bypatient.Severity:ab le to sleep during episode; does not interfere with daily activities Context:improving Associated Symptoms:no fever; no fatigue; no irritability; no cough; normal appetite; no changes in productivity; no shortness of breath pt is active and alert, pt went to see calendering supervisor who recommend an senior clinical sas programmer referral. Jason Mello MD [address] [facility],[address], [place], [address], [facility] 09/28/2017 18:13:23 12/02/2017 text/html Annual Wellness VisitReported bypatient.Diet and Nutrition:healthy diet Fracture Risk:no history of fractures; no recent explained fracture; no sudden unexplained fractures; no previous musculoskeletal injuries Physical Activity:exercises on a regular basis; recent increase in physical activity; good physical condition Depression Risk:never feels sad, empty, or tearful; no loss of interest in activities; no significant changes in weight; no sleep disturbances or insomnia; no agitation; no loss of energy; no feelings of worthlessness or guilt; no thoughts of suicide; no history of depression; no history of mood disorders Orientation:no disorientation to time; no disorientation to date; no disorientation to place Concentration and Memory:no decreased concentrating ability; no memory lapses or loss; does not forget words Speech/Motor difficulties:no speech difficulties; no difficulty expressing formulated concepts; no difficulty with fine manipulative tasks; no difficulty writing/copying; no slowed reaction time; does not knock things over when trying to pick them up Hearing:no loss of hearing Vision:no vision problems Activities of Daily Living:able to bathe with limited or no assistance; able to contol urination and bowels; able to dress with limited or no assistance; able to feed self with limited or no assistance; able to get out of chair or bed with limited or no assistance; able to groom with limited or no assistance; able to toilet with limited or no assistance Instrumental Activities of Daily Living:able to do house work with limited or no assistance; able to grocery shop with limited or no assistance; able to manage medications with limited or no assistance; able to manage money with limited or no assistance; able to prepare meals with limited or no assistance; able to use the phone with limited or no assistance Falls Risk Assessment:no frequent falls while walking; no fall in the past year; no fall since last visit; no dizziness/vertigo Home Safety:no unsafe kenroy hazzards; no unsafe stairs; no unsafe gas appliances; working smoke/CO detectors; wears protective head gear for biking/high velocity; use of seatbelts; practicing 'safer sex'; no vision or hearing loss while driving; no fire arms; has hand bars in the bathroom/shower; good lighting in the home PT IS ACTIVE AND ALERT. PER PT CURRENTLY TAKING MEDIATIONS FOR DEPRESSION, ASTHMA, AND MIGRAINES. PER PT MIGRAINES ARE CONTROLLED, PER PT NOW SHE GET THEM 3 TIMES A WEEK. NT CONSTANT. CONTROLLED FOR NOW. NO NEW PROBLEMS OR COMPLAINTS. Italia schafer, [place] - [facility] 12/02/2017 13:06:29 OBGyn Episode No OBEpisode recorded.
--- OUTSIDE RECORDS SUMMARY | 2024-11-02 14:33 | XMS_ITS | Encounter Summary ---
Author Organization [employer] Address [address] [place] [address] Care Team Providers Care White Metal Corrosion Proofer Name Role Phone Simona Ribeiro MD Primary Care Provide r Encounter Details Date Type Department Care Team (Late Contact Info) Description 09/01/2022 Telephone [facility] CHC MED & PEDS [address] [place], [place] [id number] Hope Garcia RN Social History Tobacco Use Types Packs/Day Years [...] suspected to have Coronavirus/COVID-19? No / Unsure 08/31/2022 10:12 AM EST documented as of this encounter Plan of Treatment Upcoming Encounters Date Type Department Care Team (Late Contact Info) Description 11/20/2024 9:30 AM EST Office Visit [facility] OPTOMETRY [address] [place] [address] Jessika Mcclure, OD [address] [place] [address] 12/21/2024 3:30 PM EDT Telemedicine [facility] MEDICINE [address] [place] [address] Simona Ribeiro MD [address] [place], [place] [phone] 03/07/2025 9:00 AM EDT Office Visit [facility] ADULT DENTAL [address] [place], [place] [phone] Nevin Cabezas documented as of this encounter Visit Diagnoses Not on filedocumented in this encounter Care Teams White Metal Corrosion Proofer Relationship Specialty Start Date End Date Simona Ribeiro MD [address], [place] [phone] PCP - General Family Medicine 07/21/19 Hot Mix (Work) 02/22/24 documented as of this encounter
== END 2024-11-02 14:29 | disposition home or self-care (01) ==
LOC: HO.HHCX 14:28
PROVIDERS: Visit Provider Internal Medicine
DX: M79.641 Pain in right hand (principal)
CPT/HCPCS: 73130

== ENCOUNTER → 2024-11-02 14:29 | Outpatient (BNV) | payer MEDICAID, SELFPAY | PROVIDERS: Visit Provider Radiology Diagnostic Radiology | DX: M79.641 Pain in right hand (principal) | CPT/HCPCS: 73130 ==

== ENCOUNTER 2024-12-14 11:31 | Outpatient (AMB) | payer MEDICAID, SELFPAY ==
--- NOTE | 2024-12-14 11:54 | A.OFFVIS_ITS ---
VS Expanded 12/14/24 12:02 BP 113/75 Blood Pressure Location Lt brachial Blood Pressure Position Sitting Pulse 54 Temp 97.5 F Temperature Source Temporal Artery Scan Pulse Oximetry 99 Oxygen Delivery Method Room Air Height 5 ft 2 in Weight 173 lb 3.2 oz BMI 31.7 Body Fat % 42.2 Body Fat Mass 73 Fat Free Mass 100 Visceral Fat Rating 9.0 Body Water % 41.3 Body Water Mass 71.4 Muscle Mass/Score 95.0 Basal Metabolic Rate/Score 1,406 Intake Visit Reasons: (OV) PO LSG 01/06/22 Reporting Lead Required: Yes Reporting Lead Name: Pascual [id number] Allergies Penicillins Allergy (Severe, Verified 08/21/24 10:25) Anaphylaxis aspirin Allergy (Intermediate, Verified 08/21/24 10:25) Rash seafood Allergy (Intermediate, Verified 08/21/24 10:25) Anaphylaxis, rash Medication List - Last Reconciled 12/14/24 by JO ANN Syed albuterol sulfate 90 mcg/actuation 2 puffs inhalation Q4-6H PRN atorvastatin 20 mg PO DAILY betamethasone dipropionate 0.05% 1 appl topical DAILY PRN bupropion HCl 1 tab PO DAILY buspirone 5 mg PO BID dwyjgfcbbf-mirxyadugdhic-kktx 50-300-40 mg (Fioricet) 1 cap PO Q4-6H PRN zxokybbfjc-hfumfaxbekero-jxcg 50-325-40 mg 1 cap PO Q4H PRN cholecalciferol (vitamin D3) 25 mcg PO DAILY citalopram 20 mg PO DAILY clotrimazole 1% 1 appl topical BID cyclobenzaprine 10 mg PO Q8H gabapentin 300 mg PO BEDTIME hydroxyzine HCl 50 mg PO BID oxybutynin chloride 5 mg PO DAILY oxycodone 5 mg PO Q4H PRN pantoprazole 40 mg PO DAILY polyethylene glycol 3350 17 grams PO DAILY sennosides (senna) 8.6 mg PO DAILY sumatriptan succinate (Imitrex) 100 mg PO Q2-4H PRN tizanidine 4 mg PO BID PRN 30 days topiramate 50 mg PO BID HPI Comments Details: This?is a?44?yo female who is s/p LSG 01/06/2022. Presents for 3 year post op visit. Weight gain of 0.8lbs since last OV 3mo ago.? No complaints of nausea, emesis, abdominal pain. Has reflux, on PPI which she increased to BID and now improved. Takes senna and Miralax for constipation, otherwise very difficult to have a BM. Present meal plan includes: breakfast- Celebrate 2 scoops lunch- 6f protein, 6f salad/veg dinner- Celebrate 2 scoops Exercise routine includes: yoga 5x/week, likes to walk 30 min daily but unsure how many calories Pt reports problems of excess skin of abdomen. Has been experiencing rashes of skin folds, has tried clotrimazole for open areas. Very itchy- very uncomfortable. Have you been diagnosed with reflux (GERD)? Score 0-5: 0=no symptoms, 1=noticeable but not bothersome (slight or occasional), 2=noticeable, bothersome but not daily, 3=bothersome and daily, 4=affects daily activities, 5=incapacitating, unable to do daily activities How bad is the heartburn: 0 Heartburn when lying down: 0 Heartburn when standing up: 0 Heartburn after meals: 0 Does heartburn change your diet: 0 Does heartburn wake you up from sleep: 0 Do you have difficulty swallowin Do you have pain with swallowin If you take medication for reflux, does this affect your daily life: 0 Total score: [] PFSH Medical History COVID-19 vaccine series completed BMI 34.0-34.9,adult BMI 39.0-39.9,adult Insomnia Seizures DJD (degenerative joint disease) Stress incontinence GERD (gastroesophageal reflux disease) Hyperlipidemia Sleep apnea with use of continuous positive airway pressure (CPAP) Non-insulin dependent type 2 diabetes mellitus Obesity Well woman exam Ovarian low malignant potential tumor Umbilical hernia Migraine Asthma Morbid obesity Pannus, abdominal Surgical History Hx of tonsillectomy (12/22/23) Hx laparoscopic cholecystectomy S/P laparoscopic sleeve gastrectomy Hx of tubal ligation History of hysterectomy History of bilateral breast reduction surgery Family History Father History of prostate cancer Maternal Aunt History of breast cancer Mother Hypertension Hyperlipidemia Brother Thyroid condition Hypertension Brother No problems noted. Son No problems noted. Daughter No problems noted. Social History Are you a primary care companion to a significant other at home: No Do you presently have visiting nurse or other home services: No Alcohol intake: never Comment: counts correct Patient Tobacco Use Status: Never used Tobacco service: No Female Reproductive History Menstrual Age of Menarche: 11 Assessment & Plan Assessment & Plan (1) S/P laparoscopic sleeve gastrectomy: Comment: 01/06/22 Code(s): Z98.84 - Bariatric surgery status Category: Surgical (2) Obesity: Code(s): E66.9 - Obesity, unspecified Category: Medical (3) Excess skin: Code(s): L98.7 - Excessive and redundant skin and subcutaneous tissue Category: Medical Plan Pt is interested in starting GLP1. Reviewed contraindications, discussed dosing. Discussed need for adequate protein intake while on GLP1s as well as frequent communication with our office. Pt will check in with me weekly and is aware that subsequent Rx will be dependent on frequent communication. Also gave pt [employer] billy info, encouraged her to download and use a high protein meal plan in conjuction with medication. Ok to use low fat coconut milk to mix into shakes. Rx for Zepbound sent. Also sent nystatin powder as pt requests alternative therapy for summertime. RTC 3 months. Medications: New nystatin 1 appl topical QID 60 grams 3RF tirzepatide (weight loss) (Zepbound) for 4 weeks 2.5 mg (0.5 mL) subcut QWEEK 2 mL 0RF
[2024-12-14 12:02] VITALS: BP 113/75; PULSE 54; TEMP 36.4; O2SAT 99; BMI 31.7
== END 2024-12-14 12:28 | disposition home or self-care (01) ==
LOC: HO.HBS 11:32
PROVIDERS: PCP Internal Medicine; Visit Provider Physician Assistant Surgical
DX: L98.7 Excessive and redundant skin and subcutaneous tissue (principal); E66.9 Obesity, unspecified; Z68.31 Body mass index [BMI] 31.0-31.9, adult; Z98.84 Bariatric surgery status
CPT/HCPCS: 99214

== ENCOUNTER → 2024-12-14 11:31 | Outpatient (BNVA) | payer MEDICAID, SELFPAY | PROVIDERS: PCP Internal Medicine; Visit Provider Physician Assistant Surgical | DX: E66.9 Obesity, unspecified (principal); L98.7 Excessive and redundant skin and subcutaneous tissue; Z98.84 Bariatric surgery status; Z68.31 Body mass index [BMI] 31.0-31.9, adult | CPT/HCPCS: 99212 ==

== ENCOUNTER 2024-12-26 08:43 | Outpatient (AMB) | payer MEDICAID, SELFPAY ==
[2024-12-26 08:44] VITALS: BP 133/80; PULSE 62; O2SAT 98; BMI 32.6
--- NOTE | 2024-12-26 08:44 | A.OFFVIS_ITS ---
Vital Signs 12/26/24 08:44 Height 5 ft 2 in Weight 178 lb 2.136 oz BMI 32.6 BP 133/80 Blood Pressure Location Lt brachial Position Sitting Pulse 62 Pulse Source Pulse Oximeter Pulse Oximetry (%) 98 Oxygen Delivery Method Room Air Intake Visit Reasons: 6 month breast exam Intake Note: Patient is seen in office for 6 month follow up visit, breast exam. Pt c/o: None MRI:09/01/24 mm:01/17/24 (DUE SOON) Vice President Mission Integration Required: Yes Vice President Mission Integration Language: Kazakh Allergies Penicillins Allergy (Severe, Verified 12/26/24 08:46) Anaphylaxis aspirin Allergy (Intermediate, Verified 12/26/24 08:46) Rash seafood Allergy (Intermediate, Verified 12/26/24 08:46) Anaphylaxis, rash HPI Comments Details: 44-year-old female patient presenting for a high risk breast cancer evaluation due to a strong family history of breast cancer. She denies a previous history of breast problems but did undergo a bilateral reduction mammoplasty in 2009 and tolerated the surgery well. Her calculated Tyrer-Cuzick model remaining lifetime risk of breast cancer was calculated at 34%, well above the 20% threshold for high risk protocol. Her most recent mammogram dated 01/17/2024 revealed no mammographic evidence of malignancy (BI-RADS 1). Breast MRI performed on 09/01/2024 revealed no MR specific evidence of malignancy (BI-RADS 2 bilaterally). She reports 4 aunts with breast cancer. She had a pre malignant ovarian lesion subsequently underwent hysterectomy in October 2011. She has a prior history of a fibroadenoma but denies any pre malignant breast lesions. She denies a history of smoking, alcohol consumption, or radiation exposure. She is 1st at age 18, menarche at age 11. She underwent genetic testing on 11/18/2021 which revealed no clinically significant mutations and no mutations of unknown significance. An elevated risk for breast cancer due to her strong family history was identified once again with a Tyrer- Cuzick risk of breast cancer in her remaining life of 34%. Since her last visit she reports no breast related symptoms and generally feels well. She recently underwent a tonsillectomy and denies any current symptoms. [facility] Medical History COVID-19 vaccine series completed BMI 34.0-34.9,adult BMI 39.0-39.9,adult Insomnia Seizures DJD (degenerative joint disease) Stress incontinence GERD (gastroesophageal reflux disease) Hyperlipidemia Sleep apnea with use of continuous positive airway pressure (CPAP) Non-insulin dependent type 2 diabetes mellitus Obesity Well woman exam Ovarian low malignant potential tumor Umbilical hernia Migraine Asthma Morbid obesity Pannus, abdominal Surgical History Hx of tonsillectomy (12/22/23) Hx laparoscopic cholecystectomy S/P laparoscopic sleeve gastrectomy Hx of tubal ligation History of hysterectomy History of bilateral breast reduction surgery Family History Father History of prostate cancer Maternal Aunt History of breast cancer Mother Hypertension Hyperlipidemia Brother Thyroid condition Hypertension Brother No problems noted. Son No problems noted. Daughter No problems noted. Social History Are you a primary laboratory animal caretaker to a significant other at home: No Do you presently have visiting nurse or other home services: No Alcohol intake: never Comment: counts correct Patient Tobacco Use Status: Never used Tobacco service: No Female Reproductive History Menstrual Age of Menarche: 11 Review of Systems Const Denies chills, Denies fever(s), Denies headache(s) and Denies poor appetite ENT Denies dizziness and Denies headache(s) Card Denies chest pain, Denies rapid heart rate, Denies palpitations and Denies slow heart rate Resp Denies chest congestion, Denies cough, Denies pain on inspiration and Denies wheezing GI Denies abdominal pain, Denies bloating, Denies change in stool character, Denies constipation, Reports dyspepsia, Denies diarrhea, Denies nausea, Denies vomiting and Denies hematemesis Denies nipple discharge and Reports urinary incontinence Musc Denies back pain, Denies arthralgias, Denies joint swelling and Denies numbness Skin/Breast Denies breast skin changes, Denies breast pain, Denies breast mass, Denies change in pigmentation, Denies nipple discharge, Denies erythema and Denies rash Neuro Denies dizziness, Denies headache(s), Denies numbness and Reports seizure-like activity Psych Denies anxiety and Denies depression Endo Denies palpitations Alejandro/Lymph Denies easy bleeding, Denies easy bruising and Denies lymphadenopathy Aller/Immun Denies wheezing Physical Exam Vital Signs: Last Vital Signs Pulse 62 12/26/24 08:44 BP 133/80 12/26/24 08:44 Pulse Ox 98 12/26/24 08:44 Oxygen Delivery Method Room Air 12/26/24 08:44 BMI result Body Mass Index 32.6 Const General: cooperative, comfortable and well developed Nutritional Appearance: well nourished Orientation/consciousness: patient oriented x3 Eyes Sclerae: sclerae normal EOM: EOMs intact bilaterally Neck Neck: Yes normal visual inspection Chest Other: Bilateral breast reduction incisions Left breast: No skin change, no nipple retraction, no nipple discharge, no palpable mass, no enlarged lymph nodes. Right breast: No skin change, no nipple retraction, no nipple discharge, no palpable mass, no enlarged lymph nodes Resp Effort & Inspection: normal respiratory effort, no cough, no respiratory distress and no stridor Cardio Jugular venous distension: no JVD GI Inspection: Yes normal to inspection Palpation (GI): Soft to palpation, nontender, no guarding and not rigid Skin General skin exam: dry skin Rashes: no rashes Neuro Other: Mobility Assessment: 1. 3 meter assessment time (seconds):5 2. Gait observations: Normal balance and gait General: patient oriented x3 and no focal motor deficits Extrem General: Yes full ROM and Yes no clubbing, cyanosis or edema Psych Appearance: grossly normal Assessment & Plan Assessment & Plan (1) At high risk for breast cancer: Code(s): Z91.89 - Other specified personal risk factors, not elsewhere classified Category: Medical Plan 44-year-old female patient presenting with a strong family history breast cancer presenting today for high risk breast cancer evaluation. Her most recent mammogram 01/17/2024 revealed no mammographic evidence of malignancy (BI-RADS 1). Her calculated Tyrer-Cuzick risk for breast cancer in her remaining life was calculated at 34%. Breast MRI dated 09/01/2024 revealed no MR specific evidence of malignancy (BI-RADS 2 bilaterally). Examination revealed no suspicious findings in either breast. She is now due for her annual screening mammogram and will be due for her annual breast MRI in August 2025. She should continue her high risk breast screening with twice yearly clinical breast examinations, yearly mammogram alternating with yearly breast MRI. She is welcome to call sooner for any new concerns. Orders: Orders MM screening mammo BI 01/17/25 Z91.89 - Other specified personal risk factors, not elsewhere classified Coding Level of Care Code Est Pt Level 3 (37463) Diagnoses At high risk for breast cancer Z91.89
--- OUTSIDE RECORDS SUMMARY | 2024-12-26 09:11 | XMS_ITS | Clinical Summary ---
Author Organization [facility] Address [address] [place] [address] Care Team Providers Care Truck Chauffeur Name Role Phone Unavailable Primary Care Provider [...] severity, unspecified whether complicated, unspecified whether persistent ([facility]) Inhale 2 Puffs into the lungs every [...] inhalerIndications :Moderate persistent asthma, unspecified whether complicated ([facility]) Inhale 2 Puffs into the lungs 2 (two) times daily Active montelukast (SINGULAIR) 10 mg tabletIndications: Moderate persistent asthma, unspecified whether complicated ([facility]) Take 10 mg by mouth nightly at bedtime Active SUMAtriptan succinate (IMITREX) 100 mg tabletIndications: Migraine without status migrainosus, not intractable, unspecified migraine type Take 1 Tab by mouth once daily as needed May repeat in 2 hours if migraine is not subsided Active albuterol sulfate (VENTOLIN HFA) 90 mcg/actuation inhalerIndications :Moderate persistent asthma, unspecified whether complicated ([facility]) Take 2 Puffs by mouth 3 to [...] aepbIndications:Mo derate persistent asthma, unspecified whether complicated ([facility]) Inhale 1 Inhalation into the lungs 2 (two) times daily 1 Each 2 05/01/20 19 Active Active Problems Problem Noted Date Diagnosed Date Allergic rhinitis 04/20/2019 Dysphagia 04/20/2019 Hyperuricemia 04/20/2019 Pain in lower limb 04/20/2019 Esophagitis 04/20/2019 Hyperlipidemia 04/20/2019 Hypoxemia 11/26/2018 Overview (11/26/2018): Sleep related Gastroesophageal reflux disease without esophagi tis 08/24/2018 Asthma ([facility]) 07/12/2018 Migraine 07/12/2018 Depressive disorder 07/12/2018 Chronic [...] 04/20/2019 05/09/2021 Acute pharyngitis 07/12/2018 04/20/2019 Immunizations Immunization Administration Dates Next Due Flu, Preservative Free [...] Plan of Treatment Not on file [facility]
--- OUTSIDE RECORDS SUMMARY | 2024-12-26 09:11 | XMS_ITS | Data Portability ---
Author Organization [facility], auto[employer] Address [address] [place] [address] Care Team Providers Care Wool Spotter Name Role Phone MORRIS DOUGHERTY Primary Care Provider [phone] Assessment Encounter Date Assessment Date Assessment LastModified [...] calorie containing/carbo nated beverages. Exercise summary: Joined [employer], has goal to go 2-3 times per [...] eliminated juices. 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 Exercise summary: Going to [employer] for at least an hour ~3 days [...] By Organization Details Last Modified Time 05/31/2017 [id number] Patient previous ly instructed on pre and [...] exercise. eoates Not available 05/31/2017 14:52:20 07/07/2017 [id number] Patient previous ly instructed on pre and [...] fluids. eoates Not available 07/07/2017 13:32:03 08/09/2017 [id number] Patient previous ly instructed on pre and [...] fluids. eoates Not available 08/09/2017 13:50:00 09/06/2017 [id number] Patient previous ly instructed on pre and [...] fluids. eoates Not available 09/06/2017 14:09:26 09/27/2017 [id number] Patient previous ly instructed on pre and [...] and Address Organization Details Recorded Time Obesity 072143634 Active [address] [facility] Surgery 7 14:06:32 Body mass index 30+ - obesity 833245751 Active [address] [facility] Surgery 7 14:06:40 Sleep apnea 78965051 Active [address] [facility] Surgery 7 14:09:27 Hypercholeste rolemia 42615622 Active 2016 Jimi Samuels [facility] Surgery 7 15:07:19 Problem Notes None recorded. Procedures Surgical History Date Name Laterality Status Provider Name and Address Organization Details Recorded Time Breast Surgery completed [facility] 09/24/2016 12:05:31 Hysterectomy completed [facility] 09/24/2016 12:05:54 Imaging Results None recorded. Procedure Notes None recorded. Medical Equipment None Reported. Allergies Allergen ID Allergen Name Allergen Category Reaction Reaction Severity Criticality Documentation Date Start Date Code Code System Note Provider Name and Address Organization Details Recorded Time 56248 Product containin g penicilli n (product) medicatio n Not available Not available Not available 09/24/2016 41057 8001 SNOMED Not Available Not Available Not Available [...] Updated DateTime 05/31/2017 160.02 cm 35.8 kg/m2 81196.66 g Vida Michele [place] - [facility] 05/31/2017 13:21:42 Date Recorded Body height Body mass index (BMI) Body weight Provider Name and Address Organization Details Last Updated DateTime 07/07/2017 160.02 cm 36 kg/m2 29870 g Vida Michele [place] [facility] 07/07/2017 13:14:55 Date Recorded Body height Body mass index (BMI) Body weight Provider Name and Address Organization Details Last Updated DateTime 08/09/2017 160.02 cm 35.7 kg/m2 10537.82 g Vida Michele [place] [facility] 08/09/2017 13:51:49 Date Recorded Body height Body mass index (BMI) Body weight Provider Name and Address Organization Details Last Updated DateTime 09/06/2017 160.02 cm 35.4 kg/m2 82577.47 g Vida Michele [place] [facility] 09/06/2017 14:13:53 Date Recorded Body height Body mass index (BMI) Body weight Provider Name and Address Organization Details Last Updated DateTime 09/27/2017 160.02 cm 35.2 kg/m2 69042.74 g Vida Michele [place] [facility] 09/27/2017 16:38:13 Social History Question Answer Notes LastModified by Organizat ion Details LastModified Time Tobacco Smoking Status Never Smoker Not Available [facility] 07/05/2020 03:13:29 What Is Your Level Of Alcohol Consumption? None [id number] Information not available 07/05/2020 Which Illicit Or Recreational Drugs Have You Used? None [id number] Information not available 07/05/2020 Has Tried [place] Weight Loss Yes Information not available 09/24/2016 Has Tried Atkins Yes Informat ion not available 09/24/2016 Has Tried Slim Fast Yes Information not available 09/24/2016 Has Tried Lean Cuisine Yes Information not available 09/24/2016 Has Tried General Portion Reduction Yes Information no t available 09/24/2016 Has Tried Stella Yes Information not available 09/24/2016 Has Tried [...] Deep Vein Thrombosis N Kidney disease N Anxiety Disorder Y Diabetes Y Arthritis N Seizure N History of Heart Attack N Pain N Cancer N Stroke N Diverticulitis N Asthma Y Morbid Obesity Y HIV/AIDS N Fecal Incontinence N Sleep Apnea Y GERD/Reflux Y High Cholesterol Y Hepatitis N Liver Disease N Pulmonay disease N Heart Disease N Pulmonary Embolism N PCOS N Hypertension N Gynecological HistoryNo gynecological history recorded. Obstetrics History GPAL:G 0 P 0 0 0 0 Past Encounters Encounter ID Performer Location Encounter Start Date Encounter Closed Date Diagnosis/Indication Diagnosis SNOMED-CT Code Diagnosis ICD10 Code Diagnosis Note [id number] [facility] [address] [address] 09/24/2016 11:43:27 09/24/2016 17:26:[id number] [facility] [address] [place] [address] 03/18/2017 13:18:34 03/22/2017 14:14:16 [id number] [facility] [address] [place] [address] 05/10/2017 10:52:31 05/10/2017 13:31:22 [id number] [facility] [address] [place] [address] 05/31/2017 13:18:28 05/31/2017 14:52:31 [id number] [facility] [address] [place] [address] 07/07/2017 13:12:50 07/07/2017 13:32:15 [id number] [facility] [address] [place] [address] 08/09/2017 13:49:08 08/09/2017 14:05:38 [id number] [facility] [address] [place] [address] 09/06/2017 14:06:42 09/06/2017 14:51:15 [id number] [facility] [address] [place] [address] 09/27/2017 16:30:11 09/27/2017 16:46:38 Health Concerns Section Related Observation LastModified by Organization Detai ls LastModified Time None Recorded Concern Status LastModified by Organization Details LastModified Time None Recorded Advance Directives Directive None Recorded Payers Encounter Date Sequence Insurance Name Policy Number Policy Fernandes Covered Member ID Fernandes Member ID Guarantor Name 05/31/2017 1 [facility] (MEDICAID REPLACEMENT - HMO) [id number] Regina Lemoniciano [id number] Regina Larson 07/07/2017 1 [facility] (MEDICAID REPLACEMENT - HMO) [id number] Regina Larson [id number] Regina Larson 08/09/2017 1 [facility] (MEDICAID REPLACEMENT - HMO) [id number] Regina Larson [id number] Regina Larson 09/06/2017 1 [facility] (MEDICAID REPLACEMENT - HMO) [id number] Regina Larson [id number] Regina Larson 09/27/2017 1 [facility] (MEDICAID REPLACEMENT - HMO) [id number] Regina Lemoniciano [id number] Regina Larson OBGyn Episode No OBEpisode recorded.
--- OUTSIDE RECORDS SUMMARY | 2024-12-26 09:12 | XMS_ITS | Encounter Summary ---
Author Organization [employer] Address [address] [place] [address] Care Team Providers Care Group Counselor Name Role Phone Simona Ribeiro MD Primary Care Provide r Encounter Details Date Type Department Care Team (Latest Contact Info) Description 10/04/2019 Abstract [facility] CONVERSIONS Dental, Provider, DDS Social History [...] Care Team (Late st Contact Info) Description 02/05/2025 2:00 PM EDT Office Visit [facility] MEDICINE [address] [place] [id number] Simona Ribeiro MD [address] [place] [address] 03/07/2025 9:00 AM EDT Office Visit [facility] ADULT DENTAL [address] [place] [address] Nevin Cabezas documented as of this encounter Visit Diagnoses Not on filedocumented in this encounter Care Teams Group Counselor Relationship Specialty Start Date End Date Simona Ribeiro MD [address] [place] [address] [phone] PCP - General Family Medicine 11/1/19 [employer] 02/22/24 documented as of this encounter
--- OUTSIDE RECORDS SUMMARY | 2024-12-26 09:12 | XMS_ITS | Encounter Summary ---
Author Organization [employer] Address [address] [place] [address] Care Team Providers Care Arbor End Mainspring Former Name Role Phone Simona Ribeiro MD Primary Care Provide r Encounter Details Date Type Department Care Team (Late st Contact Info) Description 12/21/2024 3:30 PM EDT Telemedicine [facility] MEDICINE [address] [place], [place] [phone] Simona Ribeiro MD [address] [place], [place] [phone] Class 1 obesity due to excess calories with serious comorbidity and body mass index (BMI) of 31.0 to 31.9 in adult (Primary Dx); Mild intermittent asthma without complication; Right hand pain Social History Tobacco Use Types Packs/Day Years [...] as of this encounter Progress Notes * Simona Gaston MD - 12/21/2024 3:30 PM EDT SUBJECTIVE: Regina Grady is a 44 y.o. year old female who presents for Follow up . Acute Concerns: Patient reports she continues to have pain on her right hand reports she also has intermittent numbness and weakness of this hand and is difficult for her to manipulate objects, I review x-ray results with her and I let her know I refer her to the hand specialist, patient tells me she has not been called for an appointment yet Patient tells me she is being followed now by weight management and it was prescribed for her Zepbound but she has not started yet because she is going to have a procedure done with GI for colonoscopy and endoscopy Patient tells me she has been having more asthma events lately she thinks is because winter this time has been: Usual she is asking today for refills for her albuterol solution for her nebulizer Social History Social History Narrative Not on file Patient Active Problem List Diagnosis Acute low back pain Allergic dermatitis Allergic rhinitis Sleep apnea Chronic back pain Constipation Diverticular disease Dizziness Dysphagia Gastritis Gastroesophageal reflux disease without esophagitis Hyperlipidemia Hyperuricemia Increased frequency of urination Kidney stone Lumbosacral radiculopathy Migraine Migraine without aura, not refractory Mild intermittent asthma Mood disorder (CMS/HCC) Narcolepsy without cataplexy Pain in lower limb Petechial rash Prediabetes Rosacea Sciatica Vitamin D deficiency Annual physical exam Seizure disorder (CMS/HCC) Fibromyalgia Allergic conjunctivitis of both eyes Acute pain of right shoulder Forgetfulness Acute bacterial conjunctivitis of right eye Missing teeth, acquired History of dental zoroastrian Hypoglycemia, unspecified Other chronic allergic conjunctivitis Normal oral exam Hair loss Other fatigue Obesity (BMI 30-39.9) Chronic pain of right knee Dental plaque Right hand pain Class 1 obesity due to excess calories with serious comorbidity and body mass index (BMI) of 31.0 to 31.9 in adult Family History Problem Relation Name Age of Onset Hypertension Mother Schizophrenia Mother Breast cancer Mother Cancer Father Gastric CA Asthma Father Diabetes Father Migraines Father Review of Systems Constitutional: Negative. HENT: Negative. Respiratory: Negative. Cardiovascular: Negative. Musculoskeletal: Positive for arthralgias. Follow Up: Follow up in about 3 months (around 03/22/2025) for chronic conditions . Current Outpatient Medications on File Prior to Visit Medication Sig Dispense Refill albuterol (Ventolin HFA) 108 (90 Base) MCG/ACT inhaler INHALE 2 PUFFS BY MOUTH EVERY 4 TO 6 HOURS NEEDED 18 g 3 atorvastatin (Lipitor) 20 MG tablet TAKE 1 TABLET BY MOUTH DAILY 90 tablet 1 betamethasone dipropionate 0.05 % cream Apply 1 application topically at bed time. bisacodyl (Dulcolax) 5 MG EC tablet Take 5 mg by mouth if needed each day. Blood Glucose Monitoring Suppl ([employer] Software Lite) w/Device kit 1 each in the morning and 1 each at noon. Test blood sugar twice a day. 1 kit 0 buPROPion SR (Wellbutrin SR) 100 MG 12 hr tablet Take 1 tablet by mouth at bed time. busPIRone (Buspar) 10 MG tablet Take 1 tablet by mouth every 12 (twelve) hours. vhdsksmwzf-jtvdjllhirevu-kmkmmxhl 50-325-40 MG tablet Take 1 tablet by mouth every 4 (four) hours. 20 tablet 1 clotrimazole (Lotrimin) 1 % vaginal cream Insert one applicator per vagina at bedtime for 7 nights 45 g 0 cyclobenzaprine (Flexeril) 10 MG tablet Take 1 tablet (10 mg) by mouth 3 times daily for 10 days. 30 tablet 0 ergocalciferol (Vitamin D-2) 1.25 MG (25232 UT) capsule Take 1 capsule (1.25 mg) by mouth 1 (one) time per week. 12 capsule 0 famotidine (Pepcid) 40 MG tablet TAKE 1 TABLET BY MOUTH AT BEDTIME 90 tablet 1 Fluticasone-Salmeterol 250-50 MCG/ACT aerosol powder Inhale 1 puff every 12 (twelve) hours. FreeStyle lancets TEST BLOOD SUGAR TWICE A DAY 100 each 11 gabapentin (Neurontin) 400 MG capsule Take 1 capsule (400 mg) by mouth 3 times daily. 90 capsule 11 glucose blood (FREESTYLE LITE) test strip TEST BLOOD SUGAR TWICE A DAY 100 each 11 hydrOXYzine HCl (Atarax) 50 MG tablet Take 1 tablet by mouth every 12 (twelve) hours. ibuprofen 800 MG tablet Take 1 tablet (800 mg) by mouth every 8 (eight) hours if needed for mild pain. 1-2 tabs po tid prn pain with meals 20 tablet 0 lidocaine (Lidoderm) 5 % patch Apply 1 patch topically if needed each day for moderate pain. 60 patch 5 metFORMIN (Glucophage) 500 MG tablet TAKE 1 TABLET BY MOUTH TWICE A DAY WITH MORNIGN AND EVENING MEALS 180 tablet 1 metroNIDAZOLE (Metrocream) 0.75 % cream Apply 1 application topically in the morning. minoxidil (Loniten) 2.5 MG tablet Take 1 tablet (2.5 mg) by mouth Once per day. 30 tablet 11 mometasone-formoterol (Dulera 100) 100-5 MCG/ACT inhaler Inhale 2 puffs in the morning and at bedtime. montelukast (Singulair) 10 MG tablet Take 10 mg by mouth in the morning. omeprazole (PriLOSEC) [address] capsule Take 40 mg by mouth in the morning. topiramate (Topamax) 50 MG tablet Take 1 tablet (50 mg) by mouth at bedtime. 90 tablet 1 triamcinolone (Kenalog) 0.1 % ointment APPLY A THIN LAYER TOPICALLY TO THE AFFECTED AREA TWICE A DAY 30 g 1 [DISCONTINUED] albuterol (2.5 MG/3ML) 0.083% nebulizer solution INHALE 1 VIAL BY NEBULIZATION ROUTETHREE TIMES A DAY IF NEEDED 90 mL 1 [DISCONTINUED] phentermine 15 MG capsule Take 1 capsule (15 mg) by mouth before breakfast. 30 capsule 0 [DISCONTINUED] Semaglutide-Weight Management (Wegovy) 0.5 MG/0.5ML solution auto-injector INJECT ONE PEN (=0.5MG) SUBCUTANEOUSLY ONCE A WEEK 2 mL 0 No current facility-administered medications on file prior to visit. Problem List Items Addressed This Visit Mild intermittent asthma Patient educated to avoid asthma triggers Refills for albuterol solution done today Relevant Medications albuterol (2.5 MG/3ML) 0.083% nebulizer solution Class 1 obesity due to excess calories with serious comorbidity and body mass index (BMI) of 31.0 to 31.9 in adult - Primary Counseling about healthy diet and exercise was done today, I advised to follow- up with weight management program Right hand pain I will send her through her mail in of the information of the hand specialist referral documented in this encounter Miscellaneous Notes * Assessment & Plan Note - Simona Gaston MD - 12/21/2024 4:33 PM EDT Associated Problem(s): Class 1 obesity due to excess calories with serious comorbidity and body mass index (BMI) of 31.0 to 31.9 in adult Counseling about healthy diet and exercise was done today, I advised to follow- up with weight management program * Assessment & Plan Note - Simona Gaston MD - 12/21/2024 4:33 PM EDT Associated Problem(s): Right hand pain I will send her through her mail in of the information of the hand specialist referral * Assessment & Plan Note - Simona Gaston MD - 12/21/2024 4:32 PM EDT Associated Problem(s): Mild intermittent asthma Patient educated to avoid asthma triggers Refills for albuterol solution done today documented in this encounter Plan of Treatment Upcoming Encounters Date Type Department Care Team (Late st Contact Info) Description 02/05/2025 2:00 PM EDT Office Visit [facility] MEDICINE [address] [place] [address] Simona Ribeiro MD [address] [place], [place] [phone] 03/07/2025 9:00 AM EDT Office Visit [facility] ADULT DENTAL [address] [place] [address] Nevin Cabezas documented as of this encounter Visit Diagnoses Diagnosis Class 1 obesity due to excess calories with serious comorbidity and body mass index (BMI) of 31.0 to 31.9 in adult- Primary Mild intermittent asthma without complication Right hand pain Pain in soft tissues of limb documented in this encounter Additional Health Concerns Assessment Noted Time PHQ-9 Depression Total Score: 22 025 1:30 PM EST documented as of this encounter Care Teams [employer] Former Relationship Specialty Start Date End Date Simona Ribeiro MD [address] [place] [phone] PCP - General Family Medicine 07/21/19 [employer] 02/22/24 documented as of this encounter
--- OUTSIDE RECORDS SUMMARY | 2024-12-26 09:12 | XMS_ITS | Encounter Summary ---
Author Organization [employer] Address [address] [facility] [address] [place] [address] Care Team Providers Care Content Designer Name Role Phone Simona Ribeiro MD Primary Care Provide r Encounter Details Date Type Department Care Team (Late Contact Info) Description 06/14/2023 Orders Only [facility] MEDICINE [address] [place] [address] [phone] Nemo Patel Social History Tobacco Use Types [...] Description 02/05/2025 2:00 PM EDT Office Visit [facility] MEDICINE [address] [place], [place] [phone] Simona Ribeiro MD [address] [place], [place] [phone] 03/07/2025 9:00 AM EDT Office Visit [facility] ADULT DENTAL [address] [place], [place] [phone] Nevin Cabezas documented as of this encounter Procedures Procedure Name Priority Date/Time Associated Diagnosis Comments HM PAP/HPV Routine 08/18/2021 12:00 AM EST documented in this encounter Results * Hm Pap Smear (08/18/2021 12:00 AM EST) us Historical Provider HEALTH MAINTENANCE Final Result documented in this encounter Visit Diagnoses Not on filedocumented in this encounter Care Teams Content Designer Relationship Specialty Start Date End Date Simona Ribeiro MD [address] [place] [id number] PCP - General Family Medicine 07/21/19 [employer] 02/22/24 documented as of this encounter
--- OUTSIDE RECORDS SUMMARY | 2024-12-26 09:12 | XMS_ITS | Data Portability ---
Author Organization [facility] Medical Severo Titus madsen, [employer] Address [address] [place] [address] Assessment Encounter Date Assessment Date Assessment LastModified [...] migraine. - Pt mentions need referral for shaft headman to perform bariatric surgery---- EKG normal. - Pt mentions she had hysterectomy with ooforectomy on 2011 and need hormone replacement at this time for that reason is requesting a immigration guard referral. Lab results. - Vitamin D - UA -- blood small. Medication list was reviewed, and medication management was discussed. Changes are detailed in the Plan section below. Additional testing or evaluation is detailed in the Plan section below. Instructions regarding follow up were discussed and accepted. [email or web address] Not available 09/28/2017 18:13:18 12/02/2017 12/02/2017 Assessment: [...] microalbum in/creatin ine, mass ratio, urine [facility], [address], [place], [address], 7 06:12:16 CBC 2016 TERRY Not available 7 16:31:20 lipid panel, serum 2016 TERRY Not available 7 16:31:21 urinalysis , complete 2016 [facility], [address], [place], [address], 7 06:12:15 vitamin B12, serum 2016 TERRY Not available 7 20:31:44 folate, serum 2016 TERRY Not available 7 20:31:45 magnesium, serum or plasma 2016 TERRY Not available 7 16:31:[address] referral 2017 018 [email or web address] Not available 8 09:30:27 endocrinol ogy referral 2017 018 [email or web address] Cayetano Chauhan MD, [address], [address], [address], 8 09:21:[address] referral 2017 018 [email or web address] [facility], [address] [place], [address], 8 09:21:[address] referral 2017 018 [email or web address] Not available 8 09:51:19 ophthalmol ogist referral 2016 017 [email or web address] Antony Gao DO, [address] [place], [address], 8 09:20:10 dinkey driver referral 2016 017 [email or web address] Not available 8 09:20:10 Procedures None recorded. Surgeries None recorded. Imaging None recorded. Medication Orders albuterol sulfate HFA 90 mcg/actuat ion aerosol inhaler 2017 018 [facility], [address] [place], [address], 8 12:59:47 Singulair 10 mg tablet 2017 018 [facility], [address] [place], [address], 8 12:59:47 fluticason e propionate 50 mcg/actuat ion nasal spray,susp ension 2017 018 [facility], [address] [place], [address], 8 12:59:47 albuterol sulfate 2.5 mg/3 mL (0.083 %) solution for nebulizati on 2017 018 [facility], [address] [facility], [place], [address], 8 12:59:47 mometasone -formotero l HFA 100 mcg-5 mcg/actuat ion aerosol inhaler 2017 018 [facility], [address] [facility], [place], [address], 8 12:59:47 azithromyc in 250 mg tablet 2017 018 [facility], [address] [place] [address], [address], 8 12:59:47 Contour Next Test Strips 2017 018 INTERFACE [facility], [address] [place] [address], [address], 8 11:14:14 albuterol sulfate 0.63 mg/3 mL solution for nebulizati on 2017 018 INTERFACE [facility], [address] [place] [address], [address], 8 11:14:18 albuterol sulfate 2.5 mg/3 mL (0.083 %) solution for nebulizati on 2017 018 INTERFACE [facility], [address] [place] [address], [address], 8 11:14:02 albuterol sulfate HFA 90 mcg/actuat ion aerosol inhaler 2017 018 INTERFACE [facility], [address] [place] [address], [address], 8 11:14:06 cholecalci ferol (vitamin D3) 1,250 mcg (50,000 unit) capsule 2017 018 [facility]FACE [facility], [address] [place] [address], [address], 8 11:14:10 Contour Next Test Strips 2016 INTERFACE [facility], [address] [place] [address], [place], [address], 7 10:33:41 omeprazole 40 mg capsule,de layed release 2016 INTERFACE [facility], [address] [place] [address], [address], 7 10:34:33 atorvastat in 20 mg tablet 2016 INTERFACE [facility], [address] [place] [address], [place], [address], 7 10:34:18 Advair Diskus 250 mcg-50 mcg/dose powder for inhalation 2016 INTERFACE [facility], [address] [place] [address], [address], 7 10:33:45 albuterol sulfate 0.63 mg/3 mL solution for nebulizati on 2016 INTERFACE [facility], [address] [place] [address], [place], [address], 7 10:34:02 fluticason e propionate 50 mcg/actuat ion nasal spray,susp ension 2016 INTERFACE [facility], [address] [place] [address], [address], 7 10:34:02 Singulair 10 mg tablet 2016 017 INTERFACE [facility], [address] [place] [address], [address], 7 10:34:26 albuterol sulfate HFA 90 mcg/actuat ion aerosol inhaler 11/16/ 2017 11/16/2 017 INTERFACE [facility], [address] [facility], [place], [address], 7 10:34:22 Vitamin D2 1,250 mcg (50,000 unit) capsule 2016 017 INTERFACE [facility], [address] [facility], [place], [address], 7 10:33:51 amitriptyl ine 25 mg tablet 2016 017 INTERFACE [facility], [address] [facility], [place], [address], 7 10:34:09 Fioricet 50 mg-300 mg-40 mg capsule 2016 017 ATHENA[facility]X [facility], [address] [facility], [place], [address], 7 10:46:58 Topamax 25 mg tablet 2016 017 [facility], [address] [address], [place], [address], 7 10:34:21 Patient TargetsNo targets recorded. Patient Instructions Encounter Date Encounter Id Patient Instructions Last Modified By Organization Details Last Modified Time 08/05/2017 [id number] The patient diagnosis, treatment and medicines were discussed, including side effects. The patient was provided with appropriate answers, was given appropriate prescriptions and next appointment as needed. No further questions from the patient. Not available 08/05/2017 10:22:40 09/28/2017 [id number] high cholesterol : care instructions [email or web address] Not available 09/28/2017 11:12:07 back care and preventing injuries: care instructions [email or web address] Not available 09/28/2017 11:12:07 getting back to normal after low back pain: care instructions Not available 09/28/2017 11:12:07 learning about relief for back pain [email or web address] Not available 09/28/2017 11:12:07 menopausal hormo ne therapy (ht): care instructions [email or web address] Not available 09/28/2017 11:12:07 controlling your asthma: care instructions [email or web address] Not available 09/28/2017 11:12:07 learning about asthma [email or web address] Not available 09/28/2017 11:12:07 learning about mood disorders [email or web address] Not available 09/28/2017 11:12:07 When You Want to Lose Weight: Care Instructions [email or web address] Not available 09/28/2017 11:12:07 Cuando desea gali rice de peso: Instrucciones de cuidado - [When You Want to Lose Weight: Care Instructions] [email or web address] Not available 09/28/2017 11:12:07 The patient diagnosis, treatment and medicines were discussed, including side effects. The patient was provided with appropriate answers, was given appropriate prescriptions and next appointment as needed. No further questions from the patient. Not available 09/28/2017 10:37:58 12/02/2017 [id number] The patient diagnosis, treatment and medicines were discussed, including side effects. The patient was provided with appropriate answers, was given appropriate prescriptions and next appointment as needed. No further questions from the patient. Not available 12/02/2017 12:28:04 Reason for Referral Vehicle Return Associate Referral for Diabetes mellitus Referring Physician: Ibis Singer Physician Calender Roll Press Operator, Encounter Date: 08/05/2017 Field Auditor Referral for Diab etes mellitus Referring Physician: Ibis Singer Physician Calender Roll Press Operator, Encounter Date: 08/05/2017 Endocrinology Referral for H ormone replacement therapy Referring Physician: Jason Mello, Internal Medicine, Encounter Date: 09/28/2017 Economic Consultant Referral for Олег dy mass index 30+ - obesity Referring Physician: Jason Mello, Internal Medicine, Encounter Date: 09/28/2017 Psychiatrist Referral for De pressive disorder Referring Physician: Jason Mello Internal Medicine, Encounter Date: 09/28/2017 Economic Consultant Referral for Олег dy mass index 30+ - obesity Referring Physician: Ibis Singer Physician Calender Roll Press Operator, Encounter Date: 12/02/2017 Results Created Date Observation Date Name Description Value Unit Range Abnormal Flag Note LastModifiedBy Organization Detail LastModifiedTime 08/05/20 17 08/05/2017 urina lysis , compl ete color Yellow Not Available [facility] (Lab) [address], [place], [address], 08/06/2017 06:12:15 08/05/20 17 08/05/2017 urina lysis , compl ete clarity Cloudy Not Available [facility] (Lab) [address], [place], [address], 08/06/2017 06:12:15 08/05/20 17 08/05/2017 urina lysis , compl ete bilirubin Negati ve negati ve normal Not Available [facility] (Lab) [address], [place], [address], 08/06/2017 06:12:15 08/05/20 17 08/05/2017 urina lysis , compl ete urobilinogen <2.0 mg/dL 0.2-1. 9 normal Not Available [facility] (Lab) [address], [place], [address], 08/06/2017 06:12:15 08/05/20 17 08/05/2017 urina lysis , compl ete ketones Negati ve mg/dL negati ve normal Not Available [facility] (Lab) [address], [place], [address], 08/06/2017 06:12:15 08/05/20 17 08/05/2017 urina lysis , compl ete glucose Negati ve mg/dL negati ve normal Not Available [facility] (Lab) [address], [place], [address], 08/06/2017 06:12:15 08/05/20 17 08/05/2017 urina lysis , compl ete protein 30 mg/dL negati ve abnormal Not Available [facility] (Lab) [address], [place], [address], 08/06/2017 06:12:15 08/05/20 17 08/05/2017 urina lysis , compl ete blood Small negati ve abnormal Not Available [facility] (Lab) [address], [place], [address], 08/06/2017 06:12:15 08/05/20 17 08/05/2017 urina lysis , compl ete pH 6.0 5.0-9. 0 normal Not Available [facility] (Lab) [address], [place], [address], 08/06/2017 06:12:15 08/05/20 17 08/05/2017 urina lysis , compl ete nitrite Negati ve negati ve normal Not Available [facility] (Lab) [address], [place], [address], 08/06/2017 06:12:15 08/05/20 17 08/05/2017 urina lysis , compl ete leuk esterase Large negati ve abnormal Not Available [facility] (Lab) [address], [place], [address], 08/06/2017 06:12:15 08/05/20 17 08/05/2017 urina lysis , compl ete specific gravity 1.031 1.001- 1.035 normal Not Available [facility] (Lab) [address], [place], [address], 08/06/2017 06:12:15 08/05/20 17 08/05/2017 urina lysis , compl ete red blood cell 3-4 #/hpf none,0 -2 abnormal Not Available [facility] (Lab) [address], [place], [address], 08/06/2017 06:12:15 08/05/20 17 08/05/2017 urina lysis , compl ete white blood cell 30-49 #/hpf none,0 -5 abnormal Not Available [facility] (Lab) [address], [place], [address], 08/06/2017 06:12:15 08/05/20 17 08/05/2017 urina lysis , compl ete bacteria Few /hpf none abnormal Not Available [facility] (Lab) [address], [place], [address], 08/06/2017 06:12:15 08/05/20 17 08/05/2017 urina lysis , compl ete mucus Modera te /hpf none,t race,f ew abnormal Not Available [facility] (Lab) [address], [place], [address], 08/06/2017 06:12:15 08/05/20 17 08/05/2017 urina lysis , compl ete non-squamous epi Trace /hpf none abnormal Not Available [facility] (Lab) [address], [place], [address], 08/06/2017 06:12:15 08/05/20 17 08/05/2017 urina lysis , compl ete squam epi cells Modera te /hpf none abnormal Not Available [facility] (Lab) [address], [place], [address], 08/06/2017 06:12:15 08/05/20 17 08/05/2017 micro album in/cr eatin ine, mass ratio , urine creatinine, urine 302 mg/dL No Refer ence Range avail able for Rando m Urine s. Not Available [facility] (Lab) [address], [place], [address], 08/06/2017 06:12:16 08/05/20 17 08/05/2017 micro album in/cr eatin ine, mass ratio , urine microalbumin 1.9 mg/dL 0.0-1. 9 normal Not Available [facility] (Lab) [address], [place], [address], 08/06/2017 06:12:16 08/05/20 17 08/05/2017 micro album in/cr eatin ine, mass ratio , urine microalbumin /creatinine ratio 6 mcg/m g 0-30 normal Not Available [facility] (Lab) [address], [place], [address], 08/06/2017 06:12:16 08/06/20 17 08/06/2017 CMP, serum or plasm a sodium 142 mmol/ L 136 - 145 Not Available [facility] [address] [facility] [facility] [address], [place], [address], 08/06/2017 16:31:17 08/06/20 17 08/06/2017 CMP, serum or plasm a potassium 4.3 mmol/ L 3.5 - 5.1 Not Available [facility] [address], [place], [address], 08/06/2017 16:31:17 08/06/20 17 08/06/2017 CMP, serum or plasm a chloride 104 mmol/ L 98 - 107 Not Available [facility] [address] [facility] [address], [place], [address], 08/06/2017 16:31:17 08/06/20 17 08/06/2017 CMP, serum or plasm a carbon dioxide 30 mmol/ L 23 - 31 Not Available [facility] [address] [facility] [address], [place], [address], 08/06/2017 16:31:17 08/06/20 17 08/06/2017 CMP, serum or plasm a anion gap 12.3 7.0 - 34.0 Not Available [facility] [address] [facility] [address], [place], [address], 08/06/2017 16:31:17 08/06/20 17 08/06/2017 CMP, serum or plasm a glucose 90 mg/dL 74 - 106 Not Available [facility] [address] [facility] [address], [place], [address], 08/06/2017 16:31:17 08/06/20 17 08/06/2017 CMP, serum or plasm a BUN 14.0 mg/dL 6 - 20 Not Available [facility] [address], [place], [address], 08/06/2017 16:31:17 08/06/20 17 08/06/2017 CMP, serum or plasm a creatinine 0.9 mg/dL 0.5 - 1.2 Not Available [facility] [address] [facility] [address], [place], [address], 08/06/2017 16:31:17 08/06/20 17 08/06/2017 CMP, serum or plasm a calcium 9.9 mg/dL 8.4 - 10.5 Not Available [facility] [address] [facility] [address], [place], [address], 08/06/2017 16:31:17 08/06/20 17 08/06/2017 CMP, serum or plasm a total protein 7.5 g/dL 6.4 - 8.3 Not Available [facility] [address] [facility] [address], [place], [address], 08/06/2017 16:31:17 08/06/20 17 08/06/2017 CMP, serum or plasm a albumin 4.7 g/dL 3.5 - 4.8 Not Available [facility] [address] [facility] [address], [place], [address], 08/06/2017 16:31:17 08/06/20 17 08/06/2017 CMP, serum or plasm a globulin 2.8 g/dL 2.3 - 3.5 Not Available [facility] [address] [facility] [address], [place], [address], 08/06/2017 16:31:17 08/06/20 17 08/06/2017 CMP, serum or plasm a A/G 1.7 # 9 - 56 low Not Available [facility] [address] [facility] [address], [place], [address], 08/06/2017 16:31:17 08/06/20 17 08/06/2017 CMP, serum or plasm a alk phos 82 U/L 42 - 141 Not Available [facility] [address] [facility] [address], [place], [address], 08/06/2017 16:31:17 08/06/20 17 08/06/2017 CMP, serum or plasm a ALT 24 U/L 7 - 34 Not Available [facility] [address] [facility] [address], [place], [address], 08/06/2017 16:31:17 08/06/20 17 08/06/2017 CMP, serum or plasm a AST 21 U/L 7 - 31 Not Available [facility] [address] [facility] [address], [place], [address], 08/06/2017 16:31:17 08/06/20 17 08/06/2017 CMP, serum or plasm a total bilirubin 0.5 mg/dL 0 - 1.2 Not Available [facility] [address] [facility] [address], [place], [address], 08/06/2017 16:31:17 08/06/20 17 08/06/2017 CMP, serum or plasm a age 37 years Not Available [facility] [address] [facility] [address], [place], [address], 08/06/2017 16:31:17 08/06/20 17 08/06/2017 CMP, serum or plasm a sex multiplier 0.742 # Not Available [facility] [address] [facility] [address], [place], [address], 08/06/2017 16:31:17 08/06/20 17 08/06/2017 CMP, serum or plasm a eGFR aa 85 mL/mi n/1.7 3 60 - 300 Not Available [facility] [address] [facility] [address], [place], [address], 08/06/2017 16:31:17 08/06/20 17 08/06/2017 CMP, serum or plasm a eGFR nonaa 70 mL/mi n/1.7 3 60 - 300 Not Available [facility] [address] [facility] [address], [place], [address], 08/06/2017 16:31:17 08/06/20 17 08/06/2017 CBC WBC 5.3 10*3/ uL 3.5 - 10.0 Not Available [facility] [address] [facility] [address], [place], [address], 08/06/2017 16:31:20 08/06/20 17 08/06/2017 CBC RBC 4.90 10*6/ uL 3.9 - 5.10 Not Available [facility] [address] [facility] [address], [place], [address], 08/06/2017 16:31:20 08/06/20 17 08/06/2017 CBC HGB 14.2 g/dL 12.0 - 15.0 Not Available [facility] [address] [facility] [address], [place], [address], 08/06/2017 16:31:20 08/06/20 17 08/06/2017 CBC HCT 43.3 % 37.0 - 45.0 Not Available [facility] [address] [facility] [address], [place], [address], 08/06/2017 16:31:20 08/06/20 17 08/06/2017 CBC MCV 88.0 fL 83 - 100 Not Available [facility] [address] [facility] [address], [place], [address], 08/06/2017 16:31:20 08/06/20 17 08/06/2017 CBC MCH 29.1 pg 26.0 - 34.0 Not Available [facility] [address] [facility] [address], [place], [address], 08/06/2017 16:31:20 08/06/20 17 08/06/2017 CBC MCHC 32.9 g/dL 32.0 - 35 Not Available [facility] [address] [facility] [address], [place], [address], 08/06/2017 16:31:20 08/06/20 17 08/06/2017 CBC RDW 14.2 % 12.0 - 16.0 Not Available [facility] [address] [facility] [address], [place], [address], 08/06/2017 16:31:20 08/06/20 17 08/06/2017 CBC plt 328 10*3/ uL 145 - 355 Not Available [facility] [address] [facility] [address], [place], [address], 08/06/2017 16:31:20 08/06/20 17 08/06/2017 CBC MPV 7.5 fL 7.3 - 10.0 Not Available [facility] [address] [facility] [address], [place], [address], 08/06/2017 16:31:20 08/06/20 17 08/06/2017 CBC gr% 39.4 % 49 - 79 low Not Available [facility] [address] [facility] [address], [place], [address], 08/06/2017 16:31:20 08/06/20 17 08/06/2017 CBC gr# 2.2 # 1.1 - 6.0 Not Available [facility] [address] [facility] [address], [place], [address], 08/06/2017 16:31:20 08/06/20 17 08/06/2017 CBC MO% 9.0 % 2.0 - 6.0 high Not Available [facility] [address] [facility] [address], [place], [address], 08/06/2017 16:31:20 08/06/20 17 08/06/2017 CBC MO# 0.4 # 0.3 - 1.0 Not Available [facility] [address] [facility] [address], [place], [address], 08/06/2017 16:31:20 08/06/20 17 08/06/2017 CBC ly% 51.6 % 19.0 - 47.0 high Not Available [facility] [address] [facility] [address], [place], [address], 08/06/2017 16:31:20 08/06/20 17 08/06/2017 CBC ly# 2.7 # 0.7 - 3.7 Not Available [facility] [address] [facility] [address], [place], [address], 08/06/2017 16:31:20 08/06/20 17 08/06/2017 lipid panel , serum cholesterol 183 mg/dL 100 - 199 Not Available [facility] [address] [facility] [address], [place], [address], 08/06/2017 16:31:21 08/06/20 17 08/06/2017 lipid panel , serum triglyceride 76 mg/dL 0 - 150 Not Available [facility] [address] [facility] [address], [place], [address], 08/06/2017 16:31:21 08/06/20 17 08/06/2017 lipid panel , serum HDL 46 mg/dL 30 - 85 Not Available [facility] [address] [facility] [address], [place], [address], 08/06/2017 16:31:21 08/06/20 17 08/06/2017 lipid panel , serum LDL-calculat ed 122 mg/dL 0 - 100 high Not Available [facility] [address] [facility] [address], [place], [address], 08/06/2017 16:31:21 08/06/20 17 08/06/2017 lipid panel , serum C/H 4.0 # 1.0 - 4.0 Not Available [facility] [address] [facility] [address], [place], [address], 08/06/2017 16:31:21 08/06/20 17 08/06/2017 magne sium, serum or plasm a magnesium 2.3 mg/dL 1.7 - 2.8 Not Available [facility] [address] [facility] [address], [place], [address], 08/06/2017 16:31:22 08/06/20 17 08/06/2017 HbA1c (hemo globi n A1c), blood hemoglobin A1C 5.8 % 4 - 6 Not Available [facility] [address] [facility] [address], [place], [address], 08/09/2017 16:41:30 08/06/20 17 08/06/2017 T3, total , serum TT3 1.4 NG/mL 0.7 - 1.7 Not Available [facility] [address], [place], [address], 08/11/2017 20:31:08 08/06/20 17 08/06/2017 TSH, serum or plasm a TSH 1.1 mIU/L 0.5 - 6.8 Not Available [facility] [address], [place], [address], 08/11/2017 20:31:12 08/06/20 17 08/06/2017 T4, free, serum free T4 1.5 NG/dL 0.75 - 1.54 Not Available [facility] [address] [address], [place], [address], 08/11/2017 20:31:43 08/06/20 17 08/06/2017 vitam in B12, serum vitamin B12 581 pg/mL 230 - 1050 Not Available [facility] [address], [place], [address], 08/11/2017 20:31:44 08/06/20 17 08/06/2017 folat e, serum folate 11.5 NG/mL 3 - 16 Not Available [facility] [address], [place], [address], 08/11/2017 20:31:45 08/06/20 17 08/06/2017 vitam in D, 25-hy droxy , total , serum vitamin D 27.9 NG/dL 31 - 100 low Not Available [facility] [address] [facility] [address], [place], [address], 08/18/2017 16:29:27 12/03/19 18 12/02/2017 urina lysis , compl ete color Yellow Not Available [facility] (Lab) [address], [place], [address], 12/03/2017 07:00:01 12/03/19 18 12/02/2017 urina lysis , compl ete clarity Slight ly-Apryl udy Not Available [facility] (Lab) [address], [place], [address], 12/03/2017 07:00:01 12/03/19 18 12/02/2017 urina lysis , compl ete bilirubin Negati ve negati ve normal Not Available [facility] (Lab) [address], [place], [address], 12/03/2017 07:00:01 12/03/19 18 12/02/2017 urina lysis , compl ete urobilinogen <2.0 mg/dL 0.2-1. 9 normal Not Available [facility] (Lab) [address], [place], [address], 12/03/2017 07:00:01 12/03/19 18 12/02/2017 urina lysis , compl ete ketones Negati ve mg/dL negati ve normal Not Available [facility] (Lab) [address], [place], [address], 12/03/2017 07:00:01 12/03/19 18 12/02/2017 urina lysis , compl ete glucose Negati ve mg/dL negati ve normal Not Available [facility] (Lab) [address], [place], [address], 12/03/2017 07:00:01 12/03/19 18 12/02/2017 urina lysis , compl ete protein Negati ve mg/dL negati ve normal Not Available [facility] (Lab) [address], [place], [address], 12/03/2017 07:00:01 12/03/19 18 12/02/2017 urina lysis , compl ete blood Negati ve negati ve normal Not Available [facility] (Lab) [address], [place], [address], 12/03/2017 07:00:01 12/03/19 18 12/02/2017 urina lysis , compl ete pH 6.0 5.0-9. 0 normal Not Available [facility] (Lab) [address], [place], [address], 12/03/2017 07:00:01 12/03/19 18 12/02/2017 urina lysis , compl ete nitrite Negati ve negati ve normal Not Available [facility] (Lab) [address], [place], [address], 12/03/2017 07:00:01 12/03/19 18 12/02/2017 urina lysis , compl ete leuk esterase Trace negati ve abnormal Not Available [facility] (Lab) [address], [place], [address], 12/03/2017 07:00:01 12/03/19 18 12/02/2017 urina lysis , compl ete specific gravity 1.020 1.001- 1.035 normal Not Available [facility] (Lab) [address], [place], [address], 12/03/2017 07:00:01 12/03/19 18 12/02/2017 urina lysis , compl ete red blood cell 0-2 #/hpf none,0 -2 normal Not Available [facility] (Lab) [address] [place], [address], 12/03/2017 07:00:01 12/03/19 18 12/02/2017 urina lysis , compl ete white blood cell 0-5 #/hpf none,0 -5 normal Not Available [facility] (Lab) [address] [place], [address], 12/03/2017 07:00:01 12/03/19 18 12/02/2017 urina lysis , compl ete bacteria None /hpf none normal Not Available [facility] (Lab) [address], [place], [address], 12/03/2017 07:00:01 12/03/19 18 12/02/2017 urina lysis , compl ete mucus Few /hpf none,t race,f ew normal Not Available [facility] (Lab) [address], [place], [address], 12/03/2017 07:00:01 12/03/19 18 12/02/2017 urina lysis , compl ete squam epi cells Modera te /hpf none abnormal Not Available [facility] (Lab) [address], [place], [address], 12/03/2017 07:00:01 12/03/19 18 12/02/2017 HbA1c (hemo globi n A1c), blood hemoglobin A1C 6.5 % 4 - 6 high Not Available [facility] [address] [facility] [address], [place], [address], 12/03/2017 18:54:16 12/03/19 18 12/02/2017 homoc ystei ne, blood homocysteine 10.4 umol/ L 6.6 - 17.8 Not Available [facility] [address] [facility] [address], [place], [address], 12/08/2017 17:59:22 12/04/19 18 12/03/2017 CBC WBC 5.0 10*3/ uL 3.5 - 10.0 Not Available [facility] [address] [facility] [address], [place], [address], 12/03/2017 18:54:19 12/04/19 18 12/03/2017 CBC RBC 4.86 10*6/ uL 3.9 - 5.10 Not Available [facility] [address], [place], [address], 12/03/2017 18:54:19 12/04/19 18 12/03/2017 CBC HGB 14.3 g/dL 12.0 - 15.0 Not Available [facility] [address], [place], [address], 12/03/2017 18:54:19 12/04/19 18 12/03/2017 CBC HCT 44.4 % 37.0 - 45.0 Not Available [facility] [address], [place], [address], 12/03/2017 18:54:19 12/04/19 18 12/03/2017 CBC MCV 91.0 fL 83 - 100 Not Available [facility] [address], [place], [address], 12/03/2017 18:54:19 12/04/19 18 12/03/2017 CBC MCH 29.5 pg 26.0 - 34.0 Not Available [facility] [employer] [facility] [address], [place], [address], 12/03/2017 18:54:19 12/04/19 18 12/03/2017 CBC MCHC 32.2 g/dL 32.0 - 35 Not Available [facility] [employer] [facility] [address], [place], [address], 12/03/2017 18:54:19 12/04/19 18 12/03/2017 CBC RDW 14.0 % 12.0 - 16.0 Not Available [facility] [address], [place], [address], 12/03/2017 18:54:19 12/04/19 18 12/03/2017 CBC plt 310 10*3/ uL 145 - 355 Not Available [facility] [employer] [facility] [address], [place], [address], 12/03/2017 18:54:19 12/04/19 18 12/03/2017 CBC MPV 7.8 fL 7.3 - 10.0 Not Available [facility] [employer] [facility] [address], [place], [address], 12/03/2017 18:54:19 12/04/19 18 12/03/2017 CBC gr% 43.1 % 49 - 79 low Not Available [facility] [address] [address], [place], [address], 12/03/2017 18:54:19 12/04/19 18 12/03/2017 CBC gr# 2.3 # 1.1 - 6.0 Not Available [facility] [address] [address], [place], [address], 12/03/2017 18:54:19 12/04/19 18 12/03/2017 CBC MO% 8.9 % 2.0 - 6.0 high Not Available [facility] [address] [address], [place], [address], 12/03/2017 18:54:19 12/04/19 18 12/03/2017 CBC MO# 0.4 # 0.3 - 1.0 Not Available [facility] [address] [address], [place], [address], 12/03/2017 18:54:19 12/04/19 18 12/03/2017 CBC ly% 48.0 % 19.0 - 47.0 high Not Available [facility] [address] [address], [place], [address], 12/03/2017 18:54:19 12/04/19 18 12/03/2017 CBC ly# 2.3 # 0.7 - 3.7 Not Available [facility] [address] [address], [place], [address], 12/03/2017 18:54:19 12/04/19 18 12/03/2017 magne sium, serum or plasm a magnesium 2.2 mg/dL 1.7 - 2.8 Not Available [facility] [address] [facility] [address], [place], [address], 12/07/2017 20:29:44 12/04/19 18 12/03/2017 CMP, serum or plasm a sodium 143 mmol/ L 136 - 145 Not Available [facility] [address] [facility] [address], [place], [address], 12/07/2017 20:29:45 12/04/19 18 12/03/2017 CMP, serum or plasm a potassium 4.4 mmol/ L 3.5 - 5.1 Not Available [facility] [address] [facility] [address], [place], [address], 12/07/2017 20:29:45 12/04/19 18 12/03/2017 CMP, serum or plasm a chloride 104 mmol/ L 98 - 107 Not Available [facility] [address] [facility] [address], [place], [address], 12/07/2017 20:29:45 12/04/19 18 12/03/2017 CMP, serum or plasm a carbon dioxide 30 mmol/ L 23 - 31 Not Available [facility] [address] [facility] [address], [place], [address], 12/07/2017 20:29:45 12/04/19 18 12/03/2017 CMP, serum or plasm a anion gap 13.4 7.0 - 34.0 Not Available [facility] [address] [facility] [address], [place], [address], 12/07/2017 20:29:45 12/04/19 18 12/03/2017 CMP, serum or plasm a glucose 84 mg/dL 74 - 106 Not Available [facility] [address] [facility] [address], [place], [address], 12/07/2017 20:29:45 12/04/19 18 12/03/2017 CMP, serum or plasm a BUN 10.4 mg/dL 6 - 20 Not Available [facility] [address] [facility] [address], [place], [address], 12/07/2017 20:29:45 12/04/19 18 12/03/2017 CMP, serum or plasm a creatinine 0.9 mg/dL 0.5 - 1.2 Not Available [facility] [address] [facility] [address], [place], [address], 12/07/2017 20:29:45 12/04/19 18 12/03/2017 CMP, serum or plasm a calcium 10.4 mg/dL 8.4 - 10.5 Not Available [facility] [address] [facility] [address], [place], [address], 12/07/2017 20:29:45 12/04/19 18 12/03/2017 CMP, serum or plasm a total protein 7.6 g/dL 6.4 - 8.3 Not Available [facility] [address] [facility] [address], [place], [address], 12/07/2017 20:29:45 12/04/19 18 12/03/2017 CMP, serum or plasm a albumin 4.7 g/dL 3.5 - 4.8 Not Available [facility] [address] [facility] [address], [place], [address], 12/07/2017 20:29:45 12/04/19 18 12/03/2017 CMP, serum or plasm a globulin 2.9 g/dL 2.3 - 3.5 Not Available [facility] [address] [facility] [address], [place], [address], 12/07/2017 20:29:45 12/04/19 18 12/03/2017 CMP, serum or plasm a A/G 1.6 # 9 - 56 low Not Available [facility] [address] [facility] [address], [place], [address], 12/07/2017 20:29:45 12/04/19 18 12/03/2017 CMP, serum or plasm a alk phos 89 U/L 42 - 141 Not Available [facility] [address] [facility] [address], [place], [address], 12/07/2017 20:29:45 12/04/19 18 12/03/2017 CMP, serum or plasm a ALT 31 U/L 7 - 34 Not Available [facility] [address], [place], [address], 12/07/2017 20:29:45 12/04/19 18 12/03/2017 CMP, serum or plasm a AST 24 U/L 7 - [address] [facility] [address], [place], [address], 12/07/2017 20:29:45 12/04/19 18 12/03/2017 CMP, serum or plasm a total bilirubin 0.4 mg/dL 0 - 1.2 Not Available [facility] [address] [facility] [address], [place], [address], 12/07/2017 20:29:45 12/04/19 18 12/03/2017 CMP, serum or plasm a age 37 years Not Available [facility] [address] [facility] [address], [place], [address], 12/07/2017 20:29:45 12/04/19 18 12/03/2017 CMP, serum or plasm a sex multiplier 0.742 # Not Available [facility] [address] [facility] [address], [place], [address], 12/07/2017 20:29:45 12/04/19 18 12/03/2017 lipid panel , serum cholesterol 200 mg/dL 100 - 199 high Not Available [facility] [address] [facility] [address], [place], [address], 12/07/2017 20:29:46 12/04/19 18 12/03/2017 lipid panel , serum triglyceride 116 mg/dL 0 - 150 Not Available [facility] [address] [facility] [address], [place], [address], 12/07/2017 20:29:46 12/04/19 18 12/03/2017 lipid panel , serum HDL 59 mg/dL 30 - 85 Not Available [facility] [address] [facility] [address], [place], [address], 12/07/2017 20:29:46 12/04/19 18 12/03/2017 lipid panel , serum LDL-calculat ed 118 mg/dL 0 - 100 high Not Available [facility] [address] [facility] [address], [place], [address], 12/07/2017 20:29:46 12/04/19 18 12/03/2017 lipid panel , serum C/H 3.4 # 1.0 - 4.0 Not Available [facility] [address] [facility] [address], [place], [address], 12/07/2017 20:29:46 12/04/19 18 12/03/2017 TSH, serum or plasm a TSH .7 mIU/L 0.5 - 6.8 Not Available [facility] [address] [facility] [address], [place], [address], 12/11/2017 11:04:27 12/04/19 18 12/03/2017 vitam in D, 25-hy droxy , total , serum vitamin D 13.0 NG/dL 31 - 100 critical low Not Available [facility] [address] [facility] [address], [place], [address], 12/11/2017 11:04:30 08/17/20 17 08/05/2017 elect rodrigo rodriguez am No observ ation record ed. [email or web address] Not Available 08/17 17:33:24 Result Notes None recorded. Problems Name Problem SNOMED Code Status Onset Date Resolution Date Notes Provider Name and Address Organization Details Recorded Time Kidney disease 13836849 Active Kiarra schafer [facility] 5 10:22:31 Obesity 672831033 Active HOWIE schafer [facility] 6 13:57:32 Kidney stone 85920207 Active Jason Mello MD [address], [place], [address], [facility] 5 11:56:28 Dysphagia [id number] Fawad Mello MD [address], [place], [address], [place] [facility] 5 10:32:09 Diverticular disease [id number] Fawad Mello MD [address], [place], [address], [place] [facility] 5 11:56:28 Gastritis 0597372 Active Cornelia Dumasia null, [place] [facility] 5 11:21:41 Esophagitis [id number] Fawad Mello MD [address], [place], [address], [facility] 5 11:36:09 Body mass index 30+ - obesity 958657332 Active Cornelia Dum[place], [place] [facility] 6 17:12:50 Petechiae of skin [id number] Fawad Mello MD [address], [place], [address], [place] [facility] 5 11:36:09 Upper respiratory infection [id number] Fawad Mello MD [address], [place], [address], [place] [facility] 5 11:56:28 Vitamin D deficiency 96651503 Active Cornelia Dum[place] [facility] 6 10:48:46 Pain in lower limb 39300134 Active Vianney Hidalgo [place] [facility] 5 10:33:06 Acute pharyngitis 909860865 Active Cornelia Dum[place] [facility] 5 10:31:27 Allergic rhinitis 20525805 Active HOWIE CHAMBERS null[place] [facility] 6 13:57:32 Chronic back pain 673094641 Active Cornelia [place]andsasia [place] [facility] 6 17:12:50 Dizziness 522537814 Active Cornelia Dum[place] [facility] 6 17:12:50 Hyperuricemia 58719150 Active Cornelia [place] [facility] 6 17:12:50 Hyperlipidemia 51535408 Active Cornelia [place]ands[place] [facility] 6 17:12:50 Constipation 98554283 Active Cornelia [place]ands[place] [facility] 6 17:12:50 Low back pain 647675344 Active Vianney [place]idalgo [place] [facility] 5 10:33:06 Sciatica 20302140 Active Vianney [place]idal[place] [facility] 5 10:33:06 Depressive disorder 81817564 Active Cornelia Sandsasia [place] [facility] 6 17:12:50 Asthma 024300815 Active Venecia Paez [place] [facility] 6 13:25:29 Migraine 49172677 Active HOWIE CHAMBERS null[place] [facility] 6 13:57:32 Problem Notes None recorded. Procedures Surgical History Date Name Laterality Status Provider Name and Address Organization Details Recorded Time 08/26/20 17 Date of Last Pap Smear completed Corrie Gonsales MS - [facility] 12/02/2017 11:54:17 11/19/19 17 Most Recent Mammogram completed Corrie Gonsales MS - [facility] 12/02/2017 11:53:45 09/20/19 12 Hysterectomy completed Kiarra Aldana MS - [facility] 07/30/2014 12:09:27 09/20/19 08 Breast Surgery completed Kiarra Aldana MS - [facility] 07/30/2014 12:09:27 09/20/19 04 Tubal Ligation completed Kiarra Aldana [facility] 07/30/2014 12:09:27 Imaging [...] Not available other moderate Not available 06/19/2014 26549 UNK thora t closu re Not Available Not Available Not Available [address] [place] Aspirin medicatio n hives Not available Not available 06/19/2014 22571 8 RxNorm Not Available Not Available Not [...] 7 160.02 cm 97.6 [degF] 35.3 kg/m2 58581.8 8 g 95 % 95 % 70 /min 94 mm[Hg] 62 mm[Hg] Corrie Gonsales [facility] 7 10:17:07 Date Recorded Body height Body temperature Heart rate Oxygen saturation Oxygen saturation in Arterial blood by Pulse oximetry Body mass index (BMI) Body weight Systolic blood pressure Diastolic blood pressure Provider Name and Address Organization Details Last Updated DateTime 8 160.02 cm 98 [degF] 74 /min 96 % 96 % 35.1 kg/m2 11113.2 9 g 120 mm[Hg] 80 mm[Hg] Rosario Villarreal [facility] 8 10:11:35 Date Recorded Body height Body temperature Body mass index (BMI) Body weight Oxygen saturation Oxygen saturation in Arterial blood by Pulse oximetry Heart rate Systolic blood pressure Diastolic blood pressure Provider Name and Address Organization Details Last Updated DateTime 8 160.02 cm 96.8 [degF] 34.2 kg/m2 73884.3 3 g 98 % 98 % 65 /min 123 mm[Hg] 84 mm[Hg] Corrie Gonsales [facility] 8 11:57:46 Social History Question Answer Notes LastModified by Organizat ion Details LastModified Time Tobacco Smoking Status Never Smoker Rachel schafer [facility] 06/19/2014 12:28:53 What Is Your Level Of Alcohol Consumption? None [email or web address] Information not available 06/19/2014 How Many Years Have You Consumed Alcohol? 0 Information not available 07/08/2015 Are You Blind Or Do You Have Difficulty Seeing? Yes Information n ot available 07/30/2014 What Is Your Level Of Caffeine Consumption? None [email or web address] Information not available 06/19/2014 How Much Tobacco Do You Chew? None Information not available 07/08/2015 Are You Currently Employed? No [email or web address] Information not available 09/28/2017 Are You Deaf Or Do You Have Serious Difficulty Hearing? No Information not available 07/30/2014 What Type Of Diet Are You Following? REGULAR [email or web address] Information n ot available 06/19/2014 Which Illicit Or Recreational Drugs Have You Used? NONE Information not available 06/19/2014 Education 4 Year College [email or web address] Information not available 09/28/2017 What Is The Highest Grade Or Level Of School You Have Completed Or The Highest Degree You Have Received? [id number] [email or web address] Information not available 12/02/2017 What Is Your Occupation? NONE [email or web address] Information not available 12/02/2017 How Many Days Of Moderate To Strenuous Exercise, Like A Brisk Walk, Did You Do In The Last 7 Days? 3 [email or web address] Information not available 12/02/2017 On Those Days That You Engage In Moderate To Strenuous Exercise, How Many Minutes, On Average, Do You Exercise? 3 Information not available 12/02/2017 How Hard Is It For You To Pay For The Very Basics Like Food, Housing, Medical Care, And Heating? [id number] [email or web address] Information not available 12/02/2017 Are There Any Guns Present In Your Home? Yes Information not available 09/28/2017 Hard Of Hearing Or Deaf In One Or Both Ears? No [email or web address] Information not available 09/28/2017 Single Or Multi-level Home/work? 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 No [email or web address] Information no t available 09/28/2017 Live Alone Or With Others? With Others [email or web address] Information not available 06/19/2014 Are There Any Behavioral, Verbal Or Physical Signs Of Dental Pain? No [email or web address] Information not available 09/28/2017 Do You Have Swollen, Bleeding, Ulcer, White/red Patches, Redness Under Dentures? No [email or web address] Information not available 09/28/2017 Do You Have Constant Bad Breath? No [email or web address] Information not available 09/28/2017 Do You Have More Than One Broken Tooth Or Roots? No [email or web address] Information not available 09/28/2017 Do You Have Swollen Tongue? No [email or web address] Information not available 09/28/2017 Do You Present Social Anxiety Symptoms Such As Isolation Or Activities Of Independent Living? Yes [email or web address] Information not available 09/28/2017 Are There Any Household/ Environmental Risks Affecting Your Health? No [email or web address] Information not available 09/28/2017 Is There Any Family History Of Substance Use Such As Drugs Or Alcohol? No [email or web address] Information not available 12/02/2017 Any Family Mental Health History? No [email or web address] Information not available 12/02/2017 Do You Have History Of Mental Health Conditions? No [email or web address] Information n ot available 12/02/2017 1. Over The Past Two Weeks Have You Ever [place] Down, Depressed Or Hopeless? Yes Information not available 07/30/2014 1. Depressed Mood Most Of The Day, Neraly Everyday? Yes Information not available 10/02/2014 2. Markedly Diminished Interest Or Pleasure In Almost All Activities Most Of The Day, Nearly Everyday? Yes Information not available 07/30/2014 2. Over The Past Two Weeks Have You [place] No Pleasure Or Interest In Doing Things? [...] Information not available 10/02/2014 Smoking Assessment 09/28/2017 Inform ation not available 09/28/2017 Drinking Assessment 09/28/2017 [email or web address] Information not available 09/28/2017 Depression Screenin09/28/2017 [email or web address] Information not available 09/28/2017 Have You Ever [place] Like You Should Cut Down On Your Drinking?: No Information not available 07/08/2015 Have People Annoyed You By Criticizing Your Drinking?: No Information not available 07/08/2015 Have You Ever [place] Bad Or Guilty About Your Drinking?: No Information not available 07/08/2015 Have You Ever Had A Drink First Thing In The Morning To Steady Your Nerves Or To Get Rid Of A Hangover (eye Dashboard Developer)?: No Information not available 12/02/2017 Sleep Screenin09/28/2017 [email or web address] Informat ion not available 09/28/2017 1. Do [...] How Many Children Do You Have? 2 [email or web address] Information not available 06/19/2014 Performs Monthly Self-breast Exam? Yes [email or web address] Information no t available 09/28/2017 Do You Use Protection During Sex? No Information not available 07/08/2015 What Is Your Relationship Status? [email or web address] Information not available 12/02/2017 Seat Belts Used Routinely Yes [email or web address] Information not available 09/28/2017 Are You Sexually Active? Yes Information not available 07/08/2015 Smoke Alarm In Home Yes Information not available 09/28/2017 At What Age Did You Start Smoking Tobacco? 0 Information not available 07/08/2015 How Much Tobacco Do You Smoke? No Information not available 06/19/2014 General Stress Level High [email or web address] Information not available 09/28/2017 Do You Feel Stressed (tense, Restless, Nervous, Or Anxious, Or Unable To Sleep At Night)? [id number] [email or web address] Information not available 12/02/2017 Do You Use Sunscreen Routinely? Yes [email or web address] Information not available 09/28/2017 How Many Years Have You Smoked Tobacco? 0 [email or web address] Information not available 12/02/2017 Sex: Unknown Functional Status Question Answer Note LastModified by Organizat ion Details LastModified Time Do you have difficulty walking or climbing stairs? Yes Information not available 07/30/2014 Do you have transportation difficulties? No [email or web address] Information not available 12/02/2017 Do you have difficulty doing errands alone? No Information not available 07/30/2014 Are you able to care for yourself? Yes [email or web address] Information n ot available 06/19/2014 Do you have difficulty dressing or bathing? No Information not available 07/30/2014 What is your exercise level? Occasional 2TIMES A WEEK [email or web address] Information not available 06/19/2014 Mental Status Question [...] N Blood Transfusion N mrsa exposure N Hypothyroidism N Lung Disease N Depression Y COPD N Defects or Inherited Disease N Developmental or Behavioral Disorders N Breast Problem N Anesthesia Complications N Meniere's disease N Anxiety Disorder N Muscle, Joint, or Bone Problems N Obesity N Vision or Eye Problems N Arthritis N Polyps N Infertility N Chronic ear infections N Mental Disorder N Cancer N Varicosities N Stroke N ADHD N Endometriosis N Bladder or Kidney Problems N High Cholesterol N Liver Disease N Fibromyalgia N Headaches N Kidney Disease N Heart Problems N [...] N Abuse/Domestic Violence N Nasal polyps N Allergies N Asthma Y Reflux/GERD N Hepatitis N Heart Disease N Pulmonary Embolism N Pre-Eclampsia N Hypertension Y Osteoporosis N Chicken Pox N Autism Spectrum Disorder (ASD) N Thrombophilias N Gynecological History Statement/Question Response [...] Code Diagnosis Note [id number] Rachel Mello_C AM [address] [address] 06/19/2014 11:12:34 06/19/2014 13:36:32 Low back pain 367786452 Sciatica 46097502 Depressive disorder 46806201 Asthma 690783879 Migraine 62662499 [id number] Rosalia Mello_C AM [address] [address] 07/30/2014 11:37:06 07/30/2014 12:57:43 Sciatica 86868704 Low back pain 674713058 Kidney disease 24269330 Migraine 83052769 Obesity 137690832 [id number] Rosalia Mello_C AM [address] [address] 10/02/2014 09:49:55 10/02/2014 12:19:12 Kidney stone 28453608 Migraine 64043161 Dysphagia 46708869 [id number] Riaz_C AM [address] [address] 12/04/2014 09:52:24 12/04/2014 11:33:08 Depressive disorder 88332662 Migraine 57515402 Kidney stone 78981259 Obesity 395240188 Diverticular disease 808317135 Gastritis 3721250 Esophagitis 85167320 Body mass index 30+ - obesity 973672816 Adult heal th examination 144294238 Petechiae of skin 890710425 Asthma 322061204 Lakisha Mello_C [address] [address] 01/01/2015 09:48:41 01/01/2015 12:23:25 Asthma 541391301 Upper resp iratory infection 92929776 Depressive disorder 69970665 Diverticular disease 828118872 Gastritis 2956664 Kidney stone 21552142 Low back pain 052780226 Obesity 297829435 Petechiae of skin 362624499 Sciatica 88250336 10741 Lakisha Mello_C [address] [address] 01/29/2015 09:59:17 01/29/2015 11:40:57 Migraine 80419443 Administra tion of tetanus vaccine 807700637 Sciatica 79898113 Petechiae of skin 863411399 Esophagitis 37203562 Gynecologi c examination 85407797 49132 Cornelia Shavongus Maxstephan_C [address] [address] 07/08/2015 09:46:55 07/08/2015 11:18:44 Asthma 882313856 J45.30 Low back pain 596497296 M54.5 Migraine 62520486 G43.90 9 Gastritis 0613311 K29.00 gi fu Allergic rhinitis 531663 04 J30.1 Depressive disorder 3548 9007 F32.9 73843 HOWIE CHAMBERS Maxstephan_C [address] [address] 07/30/2015 09:33:49 07/30/2015 10:35:26 Low back pain 698763527 M54.5 Migraine 20479985 G43.50 9 Pain in lower limb 46102 006 M79.605 M79.604 Depressive disorder 3548 9007 F33.41 Sciatica 00544188 M54.31 M54.32 Vitamin D deficiency 347 09616 E55.9 33618 Rosalia Ahsan Santanastephan_C [address] [address] 09/02/2015 09:40:40 09/02/2015 10:35:54 Acute pharyngitis 821185607 J02.9 J02.8 tonsilopha ryngitis Asthma 791776266 J45.30 Body mass index 30+ - obesity 675094742 Z68.35 62523 Yolanda Velazco Jes[place] [address] 6 10/17/2015 13:09:45 10/17/2015 14:09:31 Body mass index 30+ - obesity 549577729 Z68.35 Obesity 541050839 E66.9 Vitamin D deficiency 347 42167 E55.9 Depressive disorder 3548 9007 F32.9 Migraine 75153566 G43.90 9 Allergic rhinitis 723446 04 J30.9 52820 Cornelia Kamryn Mello_C [place] [address] 6 12/30/2015 11:51:07 12/30/2015 13:02:02 Administration of diphtheria and tetanus vaccine 98590340 Z23 Chronic back pain 327230 002 G89.29 upper and lower back pain Body mass index 30+ - obesity 250276892 Z68.34 Dizziness 081785327 R42 08514 Cornelia Nails [address] [address] 03/25/2016 13:08:15 03/25/2016 14:34:04 Chronic back pain 059647313 G89.29 upper and lower back pain Depressive disorder 3548 9007 F32.9 Dizziness 134195134 R42 Hyperuricemia 22904909 E 79.0 Vitamin D deficiency 347 82571 E55.9 Hyperlipidemia 83699711 E78.5 Body mass index 30+ - obesity 036165688 Z68.34 Constipation 62495636 K5 9.00 40558 MD Jesu Salguero [address] [address] 06/29/2016 10:00:38 06/29/2016 10:46:31 Upper respiratory infection 55212160 J06.9 Arthritis/arthrosis 2741 70339 M19.90 Pure hypercholesterolemia 858378921 E78.0 Vitamin D deficiency 347 69383 E55.9 Cobalamin deficiency 190 122440 E53.8 Screening mammography 24 015826 Z12.31 Gastroesop hageal reflux disease 945997598 K21.9 74005 MD Jesu Salguero [address] [address] 07/21/2016 11:53:56 07/21/2016 12:41:20 Asthma 779118681 J45.909 Upper resp iratory infection 05424480 J06.9 Pain in throat 734968030 R07.0 Cough 14674523 R05 Pain of breast 40293004 N64.4 Chronic back pain 178679 002 G89.29 Body mass index 30+ - obesity 090166135 Z68.35 Migraine 64507027 G43.90 9 Acute sinusitis 78345287 J01.90 Polyp of colon 44528224 K63.5 54356 [facility] [address] [address] 08/25/2016 10:03:04 08/25/2016 11:29:34 Asthma 406128647 J45.909 Migraine 58332965 G43.90 9 Depressive disorder 3548 9007 F32.9 Abnormal c ervical Papanicolaou smear 329615967 R87.619 74480 MD Jesu Salguero [address] [address] 11/02/2016 15:08:24 11/02/2016 18:03:12 Chronic back pain 879561003 G89.29 Vitamin D deficiency 347 58082 E55.9 Migraine 49531900 G43.90 9 Gastroesop hageal reflux disease 830085632 K21.9 Asthma 651842001 J45.90 9 Low back pain 332202703 M54.5 Hypoglycemia 890026854 E 16.2 Menopausal flushing 1984 94111 N95.1 Abdominal pain 60757197 R10.9 Pure hypercholesterolemia 657622685 E78.00 Cobalamin deficiency 190 286496 E53.8 High gluco se level in blood 397126246 R73.9 69915 MD Jesu Salguero [address] [address] 11/16/2016 13:41:10 11/16/2016 14:51:46 Vitamin D deficiency 93123584 E55.9 Depressive disorder 3548 9007 F32.9 Asthma 887630004 J45.90 9 Migraine 40186635 G43.90 9 Gynecologi c examination 01570252 Z01.419 Mixed hyperlipidemia 267 328876 E78.2 START DIET AND EXERCISE Hypoglycemia 986292562 E 16.2 Obstructiv e sleep apnea syndrome 43923046 G47.33 72673 MD Jesu Salguero [address] [address] 01/19/2017 14:01:40 01/19/2017 14:41:45 Asthma 429214113 J45.909 Body mass index 30+ - obesity 560153259 Z68.36 Obstructiv e sleep apnea syndrome 63695053 G47.33 Reactive hypoglycemia 31 7006 E16.1 Mixed hyperlipidemia 267 402807 E78.2 START DIET AND EXERCISE [address] Italia Nails [address] [address] 03/19/2017 12:02:57 03/19/2017 12:44:00 Vitamin D deficiency 72214208 E55.9 Hyperlipidemia 79275581 E78.5 Body mass index 30+ - obesity 352318324 Z68.39 Hyperglycemia 02819230 R 73.9 Migraine 80910265 G43.90 9 Obstructiv e sleep apnea syndrome 54390513 G47.33 Pure hypercholesterolemia 437519449 E78.00 78429 MD Jesu Salguero [address] [place] [address] 03/19/2017 15:56:00 03/19/2017 15:56:09 77749 Italia Nails [address] [address] 04/02/2017 11:54:03 04/02/2017 13:39:02 Hyperlipidemia 68742120 E78.5 Diabetes mellitus 137155 09 E11.9 Body mass index 30+ - obesity 373730252 Z68.39 78710 Italia Nails [address] [address] 04/19/2017 09:43:40 04/19/2017 10:32:09 Hyperlipidemia 11000319 E78.5 Asthma 557209335 J45.90 9 Diabetes mellitus 464303 09 E11.9 Cough 63267811 R05 Acute pharyngitis 241685 003 J02.9 43740 Italia Nails AM [address] [address] 08/05/2017 09:31:16 08/05/2017 10:50:21 Asthma 310203775 J45.909 Migraine 98496433 G43.90 9 Obesity 292107220 E66.9 Diabetes mellitus 437281 09 E11.9 Vitamin D deficiency 347 05160 E55.9 Hyperlipidemia 62596839 E78.5 Gastroesop hageal reflux disease 196886799 K21.9 Active or passive immunization 917596021 Z23 Uncontroll ed type 2 diabetes mellitus 451734562 E11.65 Cobalamin deficiency 190 421425 E53.8 42636 Italia Nails [facility] [address] [place] [address] 08/09/2017 11:19:39 08/09/2017 11:19:50 [id number] MD Jesu Salguero [address] [address] 09/28/2017 09:47:56 09/28/2017 11:15:07 Asthma 251747165 J45.909 I discussed with the patient the [...] the Nebulizer Treatment was performed. Depressive disorder 4688 9007 F32.9 Migraine without aura 56 341922 G43.009 Body mass index 30+ - obesity 685647267 Z68.35 Low back pain 527278825 M54.5 mild , remains the same as before Active or passive immunization 039104235 Z23 Hormone re placement therapy 822518713 Z79.890 Vitamin D deficiency 347 53089 E55.9 Pure hypercholesterolemia 033031081 E78.00 Diabetes mellitus 628679 09 E11.9 Diet and exercise , Last HbA1c 6.7 Obesity 931642339 E66.9 836715 Italia Nails AM [address] [place] [address] 12/02/2017 11:17:01 12/02/2017 13:04:22 Asthma 982146767 J45.909 Depressive disorder 3548 9007 F33.8 stable per pt Migraine 06565441 G43.90 9 Adult heal th examination 592026432 Z00.00 Body mass index 30+ - obesity 758965209 Z68.34 Obstructiv e sleep apnea syndrome 18600194 G47.33 Acute pharyngitis 422560 003 J02.9 Prediabetes 702900709 R7 3.03 781016 Italia Washburn[address] [place] [address] 12/02/2017 18:01:44 12/02/2017 18:25:46 Health Concerns Section Related Observation LastModified by Organization Detai ls LastModified Time None Recorded Concern Status LastModified by Organization Details LastModified Time None Recorded Advance Directives Directive None Recorded Payers Encounter Date Sequence Insurance Name Policy Number Policy Fernandes Covered Member ID Fernandes Member ID Guarantor Name 08/05/2017 1 [place] [facility] (MEDICAID HMO) [id number] Regina Larson [id number] Regina Neo 08/05/2017 1 [place] [facility] (MEDICAID HMO) [id number] Regina Larson [id number] Reginaaviva Larson 09/28/2017 1 [place] [facility] (MEDICAID HMO) [id number] Regina Larson [id number] Reginaaviva Larson 12/02/2017 1 [place] [facility] (MEDICAID HMO) [id number] Regina Larson [id number] Regina Larson 12/02/2017 1 [facility] [facility] (MEDICAID HMO) 4040 Regina Larson [id number] Regina Larson Notes Date Note Type Note [...] NO NEW PROBLEMS OR COMPLAINTS. Italia schafer, [facility] 08/05/2017 10:58:21 09/28/2017 text/html Asthma F/UReport ed bypatient.Severity:ab le to sleep during episode; does not interfere with daily activities Context:improving Associated Symptoms:no fever; no fatigue; no irritability; no cough; normal appetite; no changes in productivity; no shortness of breath pt is active and alert, pt went to see president [place] who recommend an immigration guard referral. Jason Mello MD [address] [facility],[address], [place], [address], [facility] 09/28/2017 18:13:23 12/02/2017 text/html [...] NO NEW PROBLEMS OR COMPLAINTS. Italia schafer, [place] [facility] 12/02/2017 13:06:29 OBGyn Episode No OBEpisode recorded.
--- OUTSIDE RECORDS SUMMARY | 2024-12-26 09:12 | XMS_ITS | Clinical Summary ---
Author Organization [facility] it Address [address] [place] [address] Care Team Providers Care Mucker Operator Name Role Phone Cecilia Zee DOCUMENTATION BILLING CLERK Primary Care Provider [phone] Surgical History Surgery Date Site/Laterality Comments OVARIAN CYST REMOVAL PROCEDURE: OK OVARIAN CYSTECTOMY UNI/BI HYSTERECTOMY PROCEDURE: HISTORICAL HYSTERECTOMY BREAST REDUCTION PROCEDURE: OK BREAST REDUCTION OTHER SURGICAL HISTORY 2007 PROCEDURE: OK PUNCTURE ASPIRATION CYST BREAST EACH ADDL CYST; [...] [employer] Screening 04/18/2024 COVID-19 Vaccine (2023-2 5 season) 2024 Influenza Vaccine (Season Ended) 2025 HIB Vaccines Aged Out No longer eligi [...] age to complete this topic Meningococcal B Vaccine Aged Out No l onger eligible based on patient's age to complete [...] AM EDT Narrative 07/09/2019 4:[address] [facility] Diagnostic Imaging Department [address] [place], [place] [id number] Patient: ??ROBERTO ELIZALDE ?/Age/Sex: 1980 - 39 - F Unit#: ??[id number] ? Location/Status: ??SPDIMAM/PRE CLI ? Mnemonic/Ordering Site: ??DIGSC/SPMAM Ordering Physician: ??REI DELACRUZ CNM [facility] Screening Digital - 07/08/19853 EXAM: [facility] Screening Digital EXAM DATE AND TIME: 07/08/2019 9:20 AM HISTORY: ??Screening. Reduction mammoplasty in 2007. Paternal grandmother had breast carcinoma. COMPARISON: ??Previous mammograms done in [place] are not available per the patient. TECHNIQUE: CC and MLO views of both breasts were obtained using full field digital mammography. Bilateral digital breast tomosynthesis was performed in the MLO projection. Computer aided detection with the VectorMAX 7.2-H was employed. TISSUE DENSITY: a. The [...] Routine screening mammogram BILATERAL in 1 year. 58584, 62274 3342F, 7025F Dictating Physician: ??ALIS POWER MD Electronically Signed by: ??ALIS POWER MD Dic Date/Time: ??07/09/191642 Sign date/Time: ??07/09/191643 Procedure Note Alis Power - 09/08/2022 [facility] Diagnostic Imaging Department [address] [place] [address] Patient: CARMELINA ELIZALDENATE HernandezO.B./Age/Sex: 1980 - 39 - F Unit#: [id number] Location/Status: SPDIMAM/PRE CLI Mnemonic/Ordering Site: DIGDE/[facility] Ordering Physician: REI DELACRUZ CNM [facility] Screening Digital - 07/08/19 - 0854 EXAM: [facility] Screening Digital EXAM DATE AND TIME: 07/08/2019 9:20 AM HISTORY: Screening. Reduction mammoplasty in 2007. Paternal grandmotherhad breast carcinoma. COMPARISON: Previous mammograms done in [place] are not available perthe patient. TECHNIQUE: CC and MLO views of both breasts were obtained using fullfield digital mammography. Bilateral digital breast tomosynthesis was performedin the MLO projection. Computer aided detection with the VectorMAX 7.2-Re.Muas employed. TISSUE DENSITY: a. The breasts are [...] Routine screening mammogram BILATERAL in 1 year. 17032, 98920 3342F, 7025F Dictating Physician: ALIS POWER MD Electronically Signed by: ALIS POWER MD Dic Date/Time: 07/09/19 1643 Sign date/Time: 07/09/194 Rei Delacruz CNM IMG BI PROCEDURES Final Resul t * Pap smear (07/06/2019) 07/06/2019 Narrative HISTORICAL TESTING LAB RESULTING AGENCY - 07/10/2019 1:05 PM EDT [id number] THINPREP PAP, IMAGED: NEGATIVE FOR SQUAMOUS INTRAEPITHELIAL [...] Recently Relevant to Health Maintenance Care Teams Mucker Operator Relationship Specialty Start Date End Date Cecilia Zee FNP [address] [facility] [place] [address] PCP - General Internal Medicine 04/27/19
--- OUTSIDE RECORDS SUMMARY | 2024-12-26 09:12 | XMS_ITS | Clinical Summary ---
Author Organization [employer] Address [address] [facility] 7[address] [place] [address] Care Team Providers Care Pharmacy Technician Assistant Name Role Phone Simona Ribeiro MD Primary Care Provide r Allergies Active Allergy Reactions Criticality Noted Date Comments Aspirin Hives,Swelling 07/12/2018 Only to ASA, other NSAIDs is ok. Allergic reaction occurred when pt was 12 years old and occurred in [place]. Penicillin G 12/06/2023 Penicillins Anaphylaxis,Hives High 07/12/2018 Shellfish Allergy 07/27/2023 [...] g 023 Active Blood Glucose Monitoring Suppl (Transparency SoftwareStFiltr8 Lite) w/Device kit 1 each in the morning and 1 each at noon. Test blood sugar twice a day. 1 kit 023 Active triamcinolone (Kenalog) 0.1 % ointmentIndicati ons:Allergic dermatitis APPLY A THIN LAYER TOPICALLY TO THE AFFECTED AREA TWICE A DAY 30 g 1 023 Active butalbital-aceta minophen-caffein e 50-325-40 MG tabletIndication s:Other migraine without status migrainosus, not intractable Take 1 tablet by mouth every 4 (four) hours. 20 tablet 1 024 Active atorvastatin (Lipitor) 20 MG [...] 024 Active ergocalciferol (Vitamin D-2) 1.25 MG (63068 UT) capsuleIndicatio ns:Vitamin D deficiency Take 1 [...] tid prn pain with meals 20 tablet 024 Active FreeStyle lancetsIndicatio ns:Prediabetes TEST BLOOD SUGAR TWICE A DAY 100 each 11 024 Active glucose blood (FREESTYLE LITE) test stripIndications :Prediabetes TEST BLOOD SUGAR TWICE A DAY 100 each 024 Active minoxidil (Loniten) 2.5 MG tablet Take 1 tablet (2.5 mg) by mouth Once per day. 30 tablet 11 025 2025 Active metFORMIN (Glucophage) 500 MG tabletIndication s:Prediabetes TAKE 1 TABLET BY MOUTH TWICE A DAY WITH MORNIGN AND EVENING MEALS 180 tablet 1 025 Active topiramate (Topamax) 50 MG tabletIndication s:Seizure disorder (CMS/HCC),Class 1 obesity with serious comorbidity and body mass index (BMI) of 31.0 to 31.9 in adult, unspecified obesity type Take 1 tablet (50 mg) by mouth at bedtime. 90 tablet 1 025 Active albuterol (2.5 MG/3ML) 0.083% nebulizer solutionIndicati ons:Mild intermittent asthma without complication INHALE 1 VIAL BY NEBULIZATION ROUTE THREE TIMES A DAY IF NEEDED 90 mL 3 025 Active topiramate 50 MG tabletIndication s:Other migraine without status migrainosus, not intractable TAKE 2 TABLETS BY MOUTH DAILY DIRECTED 60 tablet 3 023 2024 Discontinued(T herapy completed) Ketotifen Fumarate 0.035 % solutionIndicati ons:Allergic conjunctivitis of both eyes Administer 1 drop into both eyes 2 times daily. 10 mL 1 024 2024 Discontinued(T herapy completed) Semaglutide-Weig ht Management (Wegovy) 0.25 MG/0.5ML solution auto-injectorInd ications:Obesity (BMI 30-39.9) Inject 0.25 mg under the skin 1 (one) time per week. 0.5 mL 024 2024 Discontinued(T herapy completed) albuterol (2.5 MG/3ML) 0.083% nebulizer solutionIndicati ons:Mild intermittent asthma without complication INHALE 1 VIAL BY NEBULIZATION ROUTE THREE TIMES A DAY IF NEEDED 90 mL 1 024 2024 Discontinued(R eorder (will not trigger notification to Pharmacy)) Semaglutide-Weig ht Management (Wegovy) 0.5 MG/0.5ML solution auto-injector INJECT ONE PEN (=0.5MG) SUBCUTANEOUSLY ONCE A WEEK 2 mL 024 2024 Discontinued butalbital-aceta minophen-caffein e 50-325-40 MG tabletIndication s:Migraine without aura, not refractory Take 1 tablet by mouth every 6 (six) hours if needed for headaches. 9 tablet 1 025 2024 phentermine 15 MG capsuleIndicatio ns:Class 1 obesity with serious comorbidity and body mass index (BMI) of 31.0 to 31.9 in adult, unspecified obesity type Take 1 capsule (15 mg) by mouth before breakfast. 30 capsule 025 2024 Discontinued Active Problems Problem Noted Date Diagnosed Date Right hand pain 11/02/2024 Assessment & Plan (12/21/2024 4:33 PM EDT): I will send her through her mail in of the information of the hand specialist referral Assessment & Plan (11/02/2024 3:29 PM EST): X-ray ordered today Referral to hand specialist will be done She may take acetaminophen as needed for pain Class 1 obesity due to exces s calories with serious comorbidity and body mass index (BMI) of 31.0 to 31.9 in adult 11/02/2024 Assessment & Plan (12/21/2024 4:33 PM EDT): Counseling about healthy diet and exercise was done today, I advised to follow- up with weight management program Assessment & Plan (11/02/2024 3:30 PM EST): Extensive counseling about healthy diet and exercise done I will start patient on phentermine 15 mg daily Dental plaque 09/05/2024 Obesity (BMI 30-39.9) 04/27/2024 [...] chronic allergic conjunctivitis 11/01/2023 History of dental sikh 10/06/2023 Missing teeth, acquired 09/14/2023 Acute bacterial conjunctivitis of right eye 03/2023 Acute pain of right shoulder 05/03/2023 Forgetfulness 05/03/2023 Seizure disorder 01/28/2023 Assessment & Plan (11/02/2024 3:29 PM EST): I will refill her medications topiramate 50 mg at bedtime Assessment & Plan (01/31/2024 4:11 PM EDT): [...] aura, not refractory 09/01/2022 Assessment & Plan (11/02/2024 3:29 PM EST): I advise to avoid migraine triggers like red wine, chocolate, cheese, strong perfumes Assessment & Plan (01/31/2024 4:08 PM EDT): I advise to avoid migraine triggers like red wine, chocolate, cheese, strong perfumes Continue to follow with neurology Assessment & Plan (01/28/2023 10:34 AM EDT): I advise to avoid migraine triggers like red wine, chocolate, cheese, strong perfumes c/w current management Mild intermittent asthma 09/01/2022 Assessment & Plan (12/21/2024 4:32 PM EDT): Patient educated to avoid asthma triggers Refills for albuterol solution done today Assessment & Plan (01/31/2024 4:13 PM EDT): [...] Encounters Date Type Department Care Team Description 12/21/2024 3:30 PM EDT Telemedicine [facility] MEDICINE [address] [place] [address] Simona Ribeiro MD Class 1 obesity due to excess calories with serious comorbidity and body mass index (BMI) of 31.0 to 31.9 in adult (Primary Dx); Mild intermittent asthma without complication; Right hand pain 12/21/2024 Travel 12/01/20[address] Score 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) (Primary Dx); Rosacea; Dry eyes; Regular astigmatism of both eyes 11/20/2024 Travel 11/02/2024 1:45 PM EST Office Visit [facility] MEDICINE [address] [place] [address] Simona Ribeiro MD Migraine without aura, not refractory (Primary Dx); Right hand pain; Seizure disorder (CMS/HCC); Dietary counseling; Exercise counseling; Class 1 obesity with serious comorbidity and body mass index (BMI) of 31.0 to 31.9 in adult, unspecified obesity type; Class 1 obesity due to excess calories with serious comorbidity and body mass index (BMI) of 31.0 to 31.9 in adult 11/02/2024 Travel 10/30/2024 Refill [facility] MEDICINE [address] [place] [address] Simona Ribeiro MD Prediabetes 10/27/2024 11:15 AM EST Office Visit [facility] MEDICINE [address] [place] [address] Kezia Patton MD Androgenic alopecia (Primary Dx) 10/27/2024 Travel 10/25/2024 Telephone [facility] ADULT DENTAL [address] [place], [place] [phone] LeandroHalina 10/20/2024 Patient Outreach [facility] MEDICINE [address] [place], [place] [phone] Simona Ribeiro MD Pre-visit Planning (SDOH screening negative and tobacco screening negative) from Last 3 Months Immunizations Name Administration [...] Description 02/05/2025 2:00 PM EDT Office Visit [facility] MEDICINE [address] [place] [address] Simona Ribeiro MD [address] [place] [address] 03/07/2025 9:00 AM EDT Office Visit [facility] ADULT DENTAL [address] [place] [address] Nevin Cabezas Health Maintenance Due Date Last Done Comments HIV Screening 1980 Diabetes: Foot Exam 1990 Family Planning (PISQ) 1995 Hepatitis C Screening 1998 Diabetes: Urine Protein Screening 1999 Hepatitis B Vaccines (1 of 3 - 19+ 3-dose series) 1999 Dental Oral Exam 12/12/2020 06/13/2020, 10/04/2019 COVID-19 Vaccine ( season) 2024 10/23/2022, 09/09/2021, 01/26/2021, Additional history exists Influenza Vaccine (#1) 2024 , 10/16/2022, 09/01/2019, Additional history exists Diabetes: Hemoglobin A1C 08/11/2024 024, 01/31/2024, 01/05/2023, Additional history exists Lipid Panel 01/30/2025 01/31/2024, 04/1 04/2023, 12/02/2020 Dental Prophylaxis 03/07/2025 09/05/2024, 1 11/15/2022, 06/28/2020, Additional history exists Alcohol/Substance Use Screening 04/27/2025 04/27/2024 Depression Monitoring (PHQ-9) 05/02/2025 11/02/2024, 11/02/2024 Mammogram 09/01/2025 09/01/2024, 04/2 05/2024, 08/31/2023, Additional history exists Dental X-Ray: Bitewings 09/06/2025 09/05/20 24, 09/14/2023, 10/04/2019 SDOH Screening 10/20/2025 10/20/2024 Depression Screening 11/02/2025 11/02/2024, 11/02/19 25 Tobacco Screening 11/20/2025 11/20/2024 Cervical Cancer Screening 08/18/2026 HPV/Cotest 08/18/2026 08/18/2021 Pap Smear 08/18/2026 08/18/2021 Dental X-Ray: Full Mouth 09/15/2026 09/14/2023, 09/20 Eye Exam 11/20/2026 11/20/2024, 11/2024, 11/20/2024, Additional history exists DTaP/Tdap/Td Vaccines (2 - Td or Tdap) 07/12/2028 07/12/2018 Zoster Vaccines (1 of 2) 2030 RSV [...] Procedure Name Priority Date/Time Associated Diagnosis Comments XR HAND 3+ VIEWS RIGHT Routine 11/02/2024 2:29 PM EST Right hand pain Full PROPHYLAXIS - ADULT Routine 09/05/2024 8:00 AM EST Dental plaque BITEWINGS - 4 RADIOGRAPHIC IMAGES Routine 09/05/2024 8:00 AM EST Dental plaque Missing teeth, acquired BI MR BREAST W AND WO CONTRAST [...] Recently Relevant to Health Maintenance Results * XR Hand 3+ Views Right (11/02/2024 2:29 PM EST) Anatomical Region Laterality Modality Upper Extremities, Hand Right Radiogra phic Imaging 11/02/2024 2:29 PM EST Narrative 11/02/2024 2:54 PM EST ?[facility] ?[address] ?[place] [address] ?XRay Report ? Signed ? Patient: Regina Willson ?MR#: ?? [id number] ? : 1980 ?Acct:[id number] ? Age/Sex: 44 / F ?ADM Date: 11/02/24 ? Loc: HO.HHCX ? Attending Dr: Simona Gaston MD ? Ordering Physician: Simona Ribeiro MD ?? Date of Service: 11/02/24 ?? Procedure(s): XR hand RT min 3V ?? Accession Number(s): [id number] ? cc: Simona Ribeiro MD ? EXAMINATION: ?? XR HAND, RIGHT ? CLINICAL INFORMATION: ?? acute pain for a month ? COMPARISON: ?? None available. ? TECHNIQUE: ?? PA, lateral, and oblique views of the right hand. ? FINDINGS: ?? No fracture, dislocation, or suspicious bone lesion. Normal bone ?? mineralization. ?? Normal alignment. ?? Joint spaces are preserved. No significant arthropathy. Mild ?? periarticular osteopenia. ? Soft tissues appear normal. ? XR/XR hand RT min 3V ?? IMPRESSION: ?? 1. Mild periarticular osteopenia without significant erosions or joint ?? space loss. ?? 2. Otherwise normal exam. ? Electronically signed by: ??Jair Nuno MD ??11/02/2024 02:52 PM EST RP ? Dictated By: ?Jair Nuno MD ? Signed By: ?<Electronically signed by Jair Nuno MD in OV> ?11/02/24 1452 ? DD/ 1429 ? TD/TT: 11/02/24 1434 ? Splitter Machine: ? Procedure Note Markfabienne, Image - 11/02/[address] [address] XRay Report Signed Patient: Regina WillsonMR#: [id number] : 1980Acct:[id number] Age/Sex: 44 / FADM Date: 11/02/24 Loc: HO.HHCX Attending Dr: Simona Gaston MD Ordering Physician: Simona Ribeiro MD Date of Service: 11/02/24 Procedure(s): XR hand RT min 3V Accession Number(s): [id number] cc: Simona Ribeiro MD EXAMINATION: XR HAND, RIGHT CLINICAL INFORMATION: acute pain for a month COMPARISON: None available. TECHNIQUE: PA, lateral, and oblique views of the right hand. FINDINGS: No fracture, dislocation, or suspicious bone lesion. Normal bone mineralization. Normal alignment. Joint spaces are preserved. No significant arthropathy. Mild periarticular osteopenia. Soft tissues appear normal. XR/XR hand RT min 3V IMPRESSION: 1. Mild periarticular osteopenia without significant erosions or joint space loss. 2. Otherwise normal exam. Electronically signed by: Jair Nuno MD 11/02/2024 02:52 PM EST Dictated By: Jair Nuno MD Signed By: <Electronically signed by Jair Nuno MD in OV> 11/02/24 1452 DD/ 1429 TD/TT: 11/02/24 1434 Splitter Machine: us Simona Gaston MD IMG XR PROCEDURES Fin al Result * BI MR Breast w and w/o Contrast Bilateral (09/01/2024 9:35 AM EST) Anatomical Region Laterality Modality Breast Bilateral Magnetic Resonan ce 09/01/2024 9:35 AM EST Narrative 09/24/2024 2:58 PM EST ? [facility] ?[address] ?[place] [address] ? Magnetic Resonance Report ? Signed ? Patient: Regina Willson ?MR#: ?? [id number] ? : 1980 ?Acct:[id number] ? Age/Sex: 44 / F ?ADM Date: 09/01/24 ? Loc: HO.MRI ? Attending Dr: Luis Carlos Adrian MD ? Ordering Physician: Luis Carlos Adrian MD ?? Date of Service: 09/01/24 ?? Procedure(s): MR breast BI wo/w con ?? Accession Number(s): [id number] ? cc: Simona Ribeiro MD; Luis Carlos [...] ??Mya Goetz DO ??09/24/2024 02:55 PM EST ? Dictated By: ?Mya Goetz DO ? Signed By: ?<Electronically signed by Mya Goetz, DO in OV> ? 09/24/24 8465 ? DD/ 0935 ? TD/TT: 09/01/24 1015 ? Splitter Machine: ? Procedure Note Felice, Image - 09/24/2024 [place] [address] Magnetic Resonance Report Signed Patient: Regina Willson#: [id number] : 1980Acct:[id number] Age/Sex: 44 / FADM Date: 09/01/24 Loc: HO.MRI Attending Dr: Luis Carlos Adrian MD Ordering Physician: Luis Carlos Adrian MD Date of Service: 09/01/24 Procedure(s): MR breast BI wo/w con Accession Number(s): [id number] cc: Simona Ribeiro MD; Luis Carlos Adrian [...] by: Mya Goetz DO 09/24/2024 02:55 PM EST Dictated By: Mya Goetz DO Signed By: <Electronically signed by Mya Goetz DO in OV> 09/24/24 1455 DD/ 0935 TD/TT: 09/01/24 1015 Splitter Machine: [facility] External Provider IMG MRI PROCEDURES Edited Result - Final * Hemoglobin A1c (02/09/2024 9:24 AM EDT) Hemoglobin A1c 5.7 <6.0 % [facility] Comment:Hemoglobin A1C Refer ence Range Adults: 4.8 - 6.0 % Non diabetic: < 6.0 % Goal: < 7.0 %Additional Action Suggested: > 8.0 %Note: Hemoglobin A1c results are invalid for patients with abnormal amounts of HbF. Blood transfusions may impact the HbA1c concentration in the patient sample. Estimated Average Glucose 117 mg/dL [facility] Comment:eAG = Estimated ave rage glucose which is %A1C expressed asaverage glucose, using the formula of the O1T-UqblwarNsbyoll Glucose study (ADAG), Diabetes Care, Vol.31,#8,Apr. 2007 02/09/2024 9:24 AM EDT 02/09/2024 9:24 AM EDT Generic External Data Provider LAB BLOOD ORDERAB LES Final Result Performing Organization Address City/[facility]/ZIP Co de Phone Number [facility] [address] [place] [address] [phone] * (ABNORMAL) Lipid Panel, Standard (01/31/2024 10:50 AM EDT) Triglycerides 119 <150 mg/dL [facility] Comment:Desirable Triglyceri de: less than 150 mg/dLBorderline High Triglyceride 150-199 mg/dLHigh Triglyceride: 200-499 mg/dLVery High Triglyceride: greater than or equal to 5OO mg/dL Cholesterol 265(H) <200 mg/dL [facility] Comment:Desirable Cholestero l: less than 200 mg/dLBorderline High Cholesterol: 200-239 mg/dLHigh Cholesterol: greater than 239 mg/dL LDL Cholesterol Calculated 178(H) <100 mg/dL [facility] Comment:Desirable LDL: less than 100 mg/dLNear Optimal/Above Optimal LDL: 110- 129 mg/dLBorderline High LDL: 130-159 mg/dLHigh LDL: 160-189 mg/dLVery High LDL: greater than or equal to 190 mg/dL HDL Cholesterol 64 >40 mg/dL [facility] Comment:Desirable HDL: great er than 40 mg/dL Note: This HDL assay may give artificially low results in patients with liver disease. Blood Venous blood specimen / Unknown 01/31/2024 10:50 AM EDT 01/31/2024 1:10 PM EDT us Simona Gaston MD LAB BLOOD ORDERABLES Final Result Performing Organization Address City/[facility]/ZIP Co de Phone Number [facility] [address] [place] [address] [phone] * HPV E6/E7 RFLX DANNY 16 18/45 (08/18/2021 10:17 AM EST) HPV 16 RNA TNP [facility] HPV 18/45 RNA [facility]NP [facility] HPV E6 E7 ADD TNP [facility] HPV mRNA E6/E7 rflx Not Detected Not Detected [facility] Comment: Methodology: Audiometric Technician-Mediated Amplification This assay detects E6/E7 viral messenger RNA (mRNA) from 14 high-risk HPV types (16,18,31,33,35,39,45,51,52,56,58,59,66,68). The analytical performance characteristics of this assay have been determined by [employer]. The modifications have not been cleared or approved by the FDA. This assay has been validated pursuant to the CLIA regulations and is used for clinical purposes. For additional information, please refer to http://education.[employer]/faq/MWC437y7 (This link if provided for information/ educational purposes only.) THIS TEST WAS PERFORMED AT: [facility] [address] [place] [address] [address] [place], [place] ??[phone] JASWINDER PAUL MD 08/18/2021 10:1 7 AM EST Ramesh Maki MD HISTORICAL/NON ORDERABLE LABS Fi nal Result [facility] [address] * Hm Pap Smear (08/18/2021 12:00 AM EST) Historical Provider HEALTH MAINTENANCE Final Result from Last 3 Months or Most Recently Relevant to Health Maintenance Insurance [facility] C3 [place] ST[place] ADULT Care Teams Pharmacy Technician Assistant Relationship Specialty Start Date End Date Simona Ribeiro MD [address] [place] [phone] PCP - General Family Medicine 07/21/19 [employer] 02/22/24
--- OUTSIDE RECORDS SUMMARY | 2024-12-26 09:12 | XMS_ITS | Data Portability ---
Author Organization [place] - [facility], [facility] Address [address] [place] [address] Care Team Providers Care Helicopter Pilot Instructor Name Role Phone MORRIS DOUGHERTY Referring Provider [...] , dipst ick Leukocytes Trace Not Available [facility] [place] 10/29/2014 11:49:34 10/29/1910/29/2014 urina lysis , dipst ick Nitrite negati ve Not Available [facility] [place] 10/29/2014 11:49:34 10/29/19 15 10/29/2014 urina lysis , dipst ick Blood Negati ve Not Available [facility] [place] 10/29/2014 11:49:34 10/29/19 15 10/29/2014 urina lysis , dipst ick Glucose 100 Not Available [facility] [place] 10/29/2014 11:49:34 10/29/19 15 imagi ng/di agnos tic resul t No observ ation record ed. [email or web address] Not Available 2014 17:11:41 Result Notes None recorded. Problems Name Problem SNOMED Code Status Onset Date Resolution Date Notes Provider Name and Address Organization Details Recorded Time Kidney stone 19143767 Active Alen Martinez M.D. [address] [place] [address], [address] [place] [address], [facility] 5 11:50:50 Increased frequency of urination 628404193 Active Alen Martinez M.D. [address] [place] [address], [address] [place] [address], [facility] 5 14:00:18 Problem Notes None recorded. Procedures Surgical History Date Name Laterality Status Provider Name and Address Organization Details Recorded Time tubiligation completed Alen Martinez M.D. [address] [place], [address], [facility] 10/29/2014 11:18:08 Imaging Results Imaging Date Name Status LastModified by Organiz ation Details LastModified Time 10/29/2014 imaging/diag nostic result completed [email or web address] Information not available 12/21/2014 17:11:41 Procedure Notes None recorded. Medical Equipment None Reported. Allergies Allergen ID Allergen Name Allergen Category Reaction Reaction Severity Criticality Documentation Date Start Date Code Code System Note Provider Name and Address Organization Details Recorded Time 87284 Product containin g penicilli n (product) medicatio n Not available Not available Not available 10/29/2014 04063 8001 SNOMED Not Available Not Available Not Available 92184 aspirin medicatio n Not available Not available [...] 5 160.02 cm 35.4 kg/m2 60 /min 87715.4 74 g 110 mm[Hg] 78 mm[Hg] Alen Martinez M.D. [address] [place] [address], [phone] [facility] 5 11:20:37 Social History [...] SNOMED-CT Code Diagnosis ICD10 Code Diagnosis Note [id number] _ [facility] [address] [facility] [place] [address] 10/29/2014 10:43:42 10/29/2014 11:21:31 Kidney stone 11173137 Increased frequency of urination 165901563 Health Concerns Section Related Observation LastModified by Organization Detai ls LastModified Time None Recorded Concern Status LastModified by Organization Details LastModified Time None Recorded Advance Directives Directive None Recorded Payers Encounter Date Sequence Insurance Name Policy Number Policy Fernandes Covered Member ID Fernandes Member ID Guarantor Name 10/29/2014 1 [place] [employer] Regina Taveras [id number] Regina Larson Notes Date Note Type Note Provider Name and Address Organization Details Recorded Time 10/29/2014 text/html pt in the er in 08/2014- CT- occ mild right flank pain no ur complaints nocturia x 4-5, ur freq q 2h no hematuria or dysuria no ur stress incontinence occ urgency Alen Martinez M.D. [address] [place], [address], [facility] 10/29/2014 11:51:31 OBGyn Episode No OBEpisode recorded.
--- OUTSIDE RECORDS SUMMARY | 2024-12-26 09:12 | XMS_ITS | Encounter Summary ---
Author Organization [employer] Address [address] [place] [address] Care Team Providers Care Research Psychologist Name Role Phone Simona Ribeiro MD Primary Care Provide r Encounter Details Date Type Department Care Team ([facility] Contact Info) Description 09/01/2022 Telephone [facility] CHC MED & PEDS [address] [place] [address] Hope Garcia RN Social History Tobacco Use [...] Upcoming Encounters Date Type Department Care Team ([facility] Contact Info) Description 02/05/2025 2:00 PM EDT Office Visit [facility] MEDICINE [address] [place] [address] Simona Ribeiro MD [address] [place] [address] 03/07/2025 9:00 AM EDT Office Visit [facility] ADULT DENTAL [address] [place] [address] Nevin Cabezas documented as of this encounter Visit Diagnoses Not on filedocumented in this encounter Care Teams Research Psychologist Relationship Specialty Start Date End Date Simona Ribeiro MD [address] [place] [address] PCP - General Family Medicine 07/21/19 [employer] 02/22/24 documented as of this encounter
--- OUTSIDE RECORDS SUMMARY | 2024-12-26 09:12 | XMS_ITS | Encounter Summary ---
Author Organization [employer] Address [address] 7t [place] [address] Care Team Providers Care Staff Readiness Officer Name Role Phone Simona Ribeiro MD Primary Care Provide r Encounter Details Date Type Department Care Team (Latest Contact Info) Description 12/21/2024 Travel Social History Tobacco Use Types Packs/Day [...] Description 02/05/2025 2:00 PM EDT Office Visit [facility] MEDICINE [address] [place] [address] Simona Ribeiro MD [address] [place] [address] 03/07/2025 9:00 AM EDT Office Visit [facility] ADULT DENTAL [address] [place] [address] Nevin Cabezas documented as of this encounter Visit Diagnoses Not on filedocumented in this encounter Additional Health Concerns Assessment Noted Time PHQ-9 Depression Total Score: 22 025 1:30 PM EST documented as of this encounter Care Teams Staff Readiness Officer Relationship Specialty Start Date End Date Simona Ribeiro MD [address] [place] [address] PCP - General Family Medicine 07/21/19 [employer] 02/22/24 documented as of this encounter
--- OUTSIDE RECORDS SUMMARY | 2024-12-26 09:12 | XMS_ITS | Encounter Summary ---
Author Organization [employer] Address [address] [facility] 7t [place] [address] Care Team Providers Care Brim Molder Name Role Phone Simona Ribeiro MD Primary Care Provide r Reason for Visit * Reason Comments Med Refill Encounter Details Date Type Department Care Team (Late Contact Info) Description 12/22/2022 Refill [facility] MEDICINE [address] [place] [address] [phone] Rishabh Mcnally MD [address] [place] [address] [phone] Vaginal candidiasis Social History Tobacco Use Types [...] Department Care Team (Late Contact Info) Description 02/05/2025 2:00 PM EDT Office Visit [facility] MEDICINE [address] [place] [address] Simona Ribeiro MD [address] [place] [address] 03/07/2025 9:00 AM EDT Office Visit [facility] ADULT DENTAL [address] [place] [address] Nevin Cabezas documented as of this encounter Visit Diagnoses Diagnosis Vaginal candidiasis Candidiasis of vulva and vagina documented in this encounter Care Teams Brim Molder Relationship Specialty Start Date End Date Simona Ribeiro MD [address] [place] [address] PCP - General Family Medicine 07/21/19 Jobber 02/22/24 documented as of this encounter
--- OUTSIDE RECORDS SUMMARY | 2024-12-26 09:12 | XMS_ITS | Encounter Summary ---
Author Organization [employer] Address [address] [facility] 7t [place] [address] Care Team Providers Care Order Booker Name Role Phone Simona Ribeiro MD Primary Care Provide r Reason for Visit * Reason Onset Date Comments Home Care Services 12/07/2022 I called the pt regarding a Physician Summary Form, from [employer]. She stated that she does not [...] (Late st Contact Info) Description 12/07/2022 Telephone [facility] MEDICINE [address] [place] [address] Simona Ribeiro MD [address] [place], [place] [phone] Home Care Services (I called the pt regarding a Physician Summary Form, from [employer]. She stated that she does not [...] Description 02/05/2025 2:00 PM EDT Office Visit [facility] MEDICINE [address] [place] [address] Simona Ribeiro MD [address] [place] [address] 03/07/2025 9:00 AM EDT Office Visit [facility] ADULT DENTAL [address] [place] [address] Nevin Cabezas documented as of this encounter Visit Diagnoses Not on filedocumented in this encounter Care Teams Order Booker Relationship Specialty Start Date End Date Simona Ribeiro MD [address] [place] [address] PCP - General Family Medicine 07/21/19 [employer] 02/22/24 documented as of this encounter
== END 2024-12-26 08:57 | disposition home or self-care (01) ==
LOC: HO.HGS 08:43
PROVIDERS: PCP Internal Medicine; Visit Provider Surgery
DX: Z91.89 Other specified personal risk factors, not elsewhere classified (principal)
CPT/HCPCS: 99213

== ENCOUNTER → 2024-12-26 08:43 | Outpatient (BNVA) | payer MEDICAID, SELFPAY | PROVIDERS: PCP Internal Medicine; Visit Provider Surgery | DX: Z91.89 Other specified personal risk factors, not elsewhere classified (principal) | CPT/HCPCS: 99212 ==

== ENCOUNTER 2025-01-05 08:09 | Outpatient (REF) | payer MEDICAID, SELFPAY ==
--- NOTE | ~2025-01-05 | XR_ITS ---
EXAMINATION: XR HAND 3 OR MORE VIEWS RIGHT HISTORY: M79.641 - Pain in right hand COMPARISON: Comparison is made with the prior examination dated 11/02/2024. FINDINGS: Three views of the right hand are submitted. Osseous mineralization is normal. There is no fracture or dislocation. The joint spaces are preserved. The soft tissues are unremarkable. XR/XR hand RT min 3V IMPRESSION: Unremarkable examination of the right hand. Electronically signed by: Marquis Vann MD 01/05/2025 01:46 PM EDT
--- OUTSIDE RECORDS SUMMARY | 2025-01-05 08:26 | XMS_ITS | Clinical Summary ---
Author Organization [facility] Address [address] [place] [address] Care Team Providers Care Pond Sawyer Name Role Phone Unavailable Primary Care Provider [...] severity, unspecified whether complicated, unspecified whether persistent ([facility]) Inhale 2 Puffs into the lungs every [...] of Treatment Not on file [facility]
--- OUTSIDE RECORDS SUMMARY | 2025-01-05 08:26 | XMS_ITS | Data Portability ---
Author Organization [facility], [employer] Address [address] [place] [address] Care Team Providers Care Desulfurizer Hand Name Role Phone MORRIS DOUGHERTY Primary Care Provider [phone] Assessment Encounter Date Assessment Date Assessment LastModified [...] calorie containing/carbo nated beverages. Exercise summary: Joined [employer], has goal to go 2-3 times per [...] during her meals. Exercise summary: Going to [employer] for at least an hour ~3 days [...] By Organization Details Last Modified Time 05/31/2017 [id number] Patient previous ly instructed on pre and [...] exercise. eoates Not available 05/31/2017 14:52:20 07/07/2017 [id number] Patient previous ly instructed on pre and [...] fluids. eoates Not available 07/07/2017 13:32:03 08/09/2017 [id number] Patient previous ly instructed on pre and [...] fluids. eoates Not available 08/09/2017 13:50:00 09/06/2017 [id number] Patient previous ly instructed on pre and [...] fluids. eoates Not available 09/06/2017 14:09:26 09/27/2017 [id number] Patient previous ly instructed on pre and [...] and Address Organization Details Recorded Time Obesity 776457722 Active [address] [facility] Surgery 7 14:06:32 Body mass index 30+ - obesity 278600794 Active [address] [facility] Surgery 7 14:06:40 Sleep apnea 65343007 Active [address] [facility] Surgery 7 14:09:27 Hypercholeste rolemia 27112171 Active [address] [facility] Surgery 7 15:07:19 Problem Notes None recorded. Procedures Surgical History Date Name Laterality Status Provider Name and Address Organization Details Recorded Time [facility] 12:05:31 Hysterectomy completed [facility] Surgery 09/24/2016 12:05:54 Imaging Results None recorded. Procedure Notes None recorded. Medical Equipment None Reported. Allergies Allergen ID Allergen Name Allergen Category Reaction Reaction Severity Criticality Documentation Date Start Date Code Code System Note Provider Name and Address Organization Details Recorded Time 58621 Product containin g penicilli n (product) medicatio n Not available Not available Not available 09/24/2016 89209 8001 SNOMED Not Available Not Available Not [...] Updated DateTime 05/31/2017 160.02 cm 35.8 kg/m2 84307.66 g Vida Michele [place] - [facility] 05/31/2017 13:21:42 Date Recorded Body height Body mass index (BMI) Body weight Provider Name and Address Organization Details Last Updated DateTime 07/07/2017 160.02 cm 36 kg/m2 03102 g Vida Michele [place] - [facility] 07/07/2017 13:14:55 Date Recorded Body height Body mass index (BMI) Body weight Provider Name and Address Organization Details Last Updated DateTime 08/09/2017 160.02 cm 35.7 kg/m2 68473.82 g Vida Michele [place] - C [facility] 08/09/2017 13:51:49 Date Recorded Body height Body mass index (BMI) Body weight Provider Name and Address Organization Details Last Updated DateTime 09/06/2017 160.02 cm 35.4 kg/m2 51946.47 g Vida Michele [place] - C [facility] 09/06/2017 14:13:53 Date Recorded Body height Body mass index (BMI) Body weight Provider Name and Address Organization Details Last Updated DateTime 09/27/2017 160.02 cm 35.2 kg/m2 91369.74 g Vida Michele [place] - [place] [facility] 09/27/2017 16:38:13 Social History Question Answer Notes LastModified by Organizat ion Details LastModified Time Tobacco Smoking Status Never Smoker Not Available [facility] 07/05/2020 03:13:29 What Is Your Level Of Alcohol Consumption? None [id number] Information not available 07/05/2020 Which Illicit Or Recreational Drugs Have You Used? None [id number] Information not available 07/05/2020 Has Tried [place] Weight Loss Yes Information not available 09/24/2016 Has Tried Atkins Yes Informat ion not available 09/24/2016 Has Tried Slim Fast Yes Information not available 09/24/2016 Has Tried Lean Cuisine Yes Information not available 09/24/2016 Has Tried General Portion Reduction Yes Information no t available 09/24/2016 Has Tried [place] Yes Information not available 09/24/2016 Has Tried [...] History Condition Response Coronary Artery Disease N Gout N Other Y Thyroid Disease N Prostate Disease N Bleeding Disorders N Blood disorders N Urinary Incontinence N Anorexia N Depression Y COPD N Deep Vein Thrombosis N Anxiety Disorder Y Arthritis N Cancer N Stroke N HIV/AIDS N Fecal Incontinence N High Cholesterol Y Liver Disease N Bowl Obstruction N Anemia N Colon Polyps N Kidney disease N Diabetes Y Seizure N History of Heart Attack N Pain N Diverticulitis N Asthma Y Morbid Obesity Y Sleep Apnea Y GERD/Reflux Y Hepatitis N Pulmonay disease N Heart Disease N Pulmonary Embolism N PCOS N Hypertension N Gynecological HistoryNo gynecological history recorded. Obstetrics History GPAL:G 0 P 0 0 0 0 Past Encounters Encounter ID Performer Location Encounter Start Date Encounter Closed Date Diagnosis/Indication Diagnosis SNOMED-CT Code Diagnosis ICD10 Code Diagnosis Note [id number] [facility] Surgery [address] [address] 09/24/2016 11:43:27 09/24/2016 17:26:04 [id number] Bell Santiago MD [facility] [address] [place] [address] 03/18/2017 13:18:34 03/22/2017 14:14:16 [id number] [facility] [address] [place] [address] 05/10/2017 10:52:31 05/10/2017 13:31:22 [id number] [facility] [address] [place] [address] 05/31/2017 13:18:28 05/31/2017 14:52:31 [id number] [facility] [address] [place] [address] 07/07/2017 13:12:50 07/07/2017 13:32:15 [id number] [facility] [address] [place] [address] 08/09/2017 13:49:08 08/09/2017 14:05:38 [id number] [facility] Advanced Surgery [address] [place] [address] 09/06/2017 14:06:42 09/06/2017 14:51:15 [id number] [facility] Advanced Surgery [address] [place] [address] 09/27/2017 16:30:11 09/27/2017 16:46:38 Health Concerns Section Related Observation LastModified by Organization Detai ls LastModified Time None Recorded Concern Status LastModified by Organization Details LastModified Time None Recorded Advance Directives Directive None Recorded Payers Encounter Date Sequence Insurance Name Policy Number Policy Fernandes Covered Member ID Fernandes Member ID Guarantor Name 05/31/2017 1 [facility] (MEDICAID REPLACEMENT - HMO) [id number] Regina Lemoniciano [id number] Regina Larson 07/07/2017 1 [facility] (MEDICAID REPLACEMENT - HMO) [id number] Regina Larson [id number] Regina Larson 08/09/2017 1 [facility] (MEDICAID REPLACEMENT - HMO) [id number] Regina Larson [id number] Regina Larson 09/06/2017 1 [facility] (MEDICAID REPLACEMENT - HMO) [id number] Regina Larson [id number] Regina Larson 09/27/2017 1 [facility] (MEDICAID REPLACEMENT - HMO) [id number] Regina Lemoniciano [id number] Regina Larson OBGyn Episode No OBEpisode recorded.
--- OUTSIDE RECORDS SUMMARY | 2025-01-05 08:26 | XMS_ITS | Clinical Summary ---
Author Organization [employer] Address [address] [facility] 7t [place] [address] Care Team Providers Care Sugar Cane Planter Name Role Phone Simona Ribeiro MD Primary Care Provide r Allergies Active Allergy Reactions Criticality Noted Date Comments Aspirin Hives,Swelling 07/12/2018 Only to ASA, other NSAIDs is ok. Allergic reaction occurred when pt was 12 years old and occurred in [place]. Penicillin G 12/06/2023 Penicillins Anaphylaxis,Hives High 07/12/2018 [...] g 023 Active Blood Glucose Monitoring Suppl ([employer]) w/Device kit 1 each in the [...] 024 Active ergocalciferol (Vitamin D-2) 1.25 MG (25176 [place]) capsuleIndicatio ns:Vitamin D deficiency Take 1 [...] A WEEK 2 mL 024 2024 Discontinued phentermine 15 MG capsuleIndicatio ns:Class 1 obesity [...] chronic allergic conjunctivitis 11/01/2023 History of dental islam 10/06/2023 Missing teeth, acquired 09/14/2023 Acute bacterial [...] Encounters Date Type Department Care Team Description 12/28/2024 Telephone [facility] MEDICINE [address] [place] [address] Simona Ribeiro MD Durable Medical Equipment (Nebulizer Supplies) 12/26/2024 Telephone [facility] MEDICINE [address] [place] [address] Simona Ribeiro MD Durable Medical Equipment 12/26/2024 Outside Procedure [facility] OPTOMETRY [address] [place] [address] Jessika Mcclure, OD Presbyopia of both eyes (Primary Dx) 12/25/2024 9:15 AM EDT Office Visit [facility] OPTOMETRY [address] [place] [address] Jessika Mcclure, OD Regular astigmatism of both eyes (Primary Dx) 12/21/2024 3:30 PM EDT Telemedicine [facility] MEDICINE [address] [place] [address] Simona Ribeiro MD Class 1 obesity due to excess calories with serious comorbidity and body mass index (BMI) of 31.0 to 31.9 in adult (Primary Dx); Mild intermittent asthma without complication; Right hand pain 12/21/2024 Travel 12/01/2024 Population Health Risk Score Community 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) (Primary Dx); Rosacea; Dry eyes; Regular astigmatism of both eyes 11/20/2024 Travel 11/02/2024 1:45 PM EST Office Visit [facility] MEDICINE [address] [place] [address] Simona Ribeiro MD Migraine without aura, not [...] 31.9 in adult 11/02/2024 Travel 10/30/2024 Refill [facility] MEDICINE [address] [place] [address] Simona Ribeiro MD Prediabetes 10/27/2024 11:15 AM EST Office Visit [facility] MEDICINE [address] [place] [address] Kezia Patton MD Androgenic alopecia (Primary Dx) 10/27/2024 Travel 10/25/2024 Telephone [facility] ADULT DENTAL [address] [place] [address] Halina Reeves 10/20/2024 Patient Outreach [address] [address] Simona Ribeiro MD Pre-visit Planning (SDOH screening [...] Description 02/05/2025 2:00 PM EDT Office Visit [facility] MEDICINE [address] [place] [address] Simona Ribeiro MD [address] [place] [address] 03/07/2025 9:00 AM EDT Office Visit [facility] ADULT DENTAL [address] [place] [address] Nevin Cabezas Health Maintenance Due Date Last [...] Additional history exists Lipid Panel 01/30/2025 01/31/2024, 12/19, 12/02/2020 Dental Prophylaxis 03/07/2025 09/05/2024, 1 11/15/2022, 06/28/2020, Additional history exists Alcohol/Substance Use Screening 04/27/2025 04/27/2024 Depression Monitoring 05/02/2025 11/02/2024, 025 Mammogram 09/01/2025 09/01/2024, /05/2024, 08/31/2023, Additional history exists Dental X-Ray: Bitewings 09/06/2025 09/05/20 24, 09/14/2023, 10/04/2019 SDOH Screening 10/20/2025 10/20/2024 Depression Screening 11/02/2025 11/02/2024, 11/02/19 25 Tobacco Screening 11/20/2025 11/20/2024 Cervical Cancer Screening 08/18/2026 HPV/Cotest 08/18/2026 08/18/2021 Pap Smear 08/18/2026 08/18/2021 Dental X-Ray: Full Mouth 09/15/2026 09/14/2023, 09/20 Eye Exam 11/20/2026 11/20/2024, 03/0 11/2024, 11/20/2024, Additional history exists DTaP/Tdap/Td Vaccines [...] topic Meningococcal Vaccine Aged Out No rodney faroqo eligible based on patient's age to complete [...] PM EST Narrative 11/02/2024 2:54 PM EST ?[facility] ?[address] ?[place] [address] ?XRay Report ? Signed ? Patient: Larson Grady,Regina ?MR#: ?? [id number] ? : 1980 ?Acct:[id number] ? Age/Sex: 44 / F ?ADM Date: 02/13/25 ? Loc: HO.HHCX ? Attending Dr: Simona Gaston MD ? Ordering Physician: Simona Ribeiro MD ?? Date of Service: 11/02/24 ?? Procedure(s): XR hand RT min 3V ?? Accession Number(s): [id number] ? cc: Simona Ribeiro MD ? EXAMINATION: [...] DD/ 1429 ? TD/TT: 11/02/24 1434 ? Cnc Supervisor: ? Procedure Note Felice, Image - 11/02/[address] [address] XRay Report Signed Patient: Regina Willson#: [id number] : 1980Acct:[id number] Age/Sex: 44 / FADM Date: 11/02/24 Loc: HO.HHCX Attending Dr: Simona Gaston MD Ordering Physician: Simona Ribeiro MD Date of Service: 11/02/24 Procedure(s): XR hand RT min 3V Accession Number(s): [id number] cc: Simona Ribeiro MD EXAMINATION: XR HAND, [...] Jair Nuno MD 11/02/2024 02:52 PM EST RP Dictated By: Jair Nuno MD Signed By: <Electronically signed by Jair Nuno MD in OV> 11/02/24 1452 DD/ 1429 TD/TT: 11/02/24 1434 Cnc Supervisor: us Simona Gaston MD IMG XR PROCEDURES Fin al Result * BI MR Breast w and w/o Contrast Bilateral (09/01/2024 9:35 AM EST) Anatomical Region Laterality Modality Breast Bilateral Magnetic Resonan ce 09/01/2024 9:35 AM EST Narrative 09/24/2024 2:58 PM EST ? [facility] ?[address] ?[place] [address] ? Magnetic Resonance Report ? Signed ? Patient: Regina Willson ?MR#: ?? [id number] ? : 1980 ?Acct:[id number] ? Age/Sex: 44 / F ?ADM Date: 09/01/24 ? Loc: HO.MRI ? Attending Dr: Luis Carlos Adrian MD ? Ordering Physician: Luis Carlos Adrian MD ?? Date of Service: 09/01/24 ?? Procedure(s): MR breast BI wo/w con ?? Accession Number(s): [id number] ? cc: Simona Ribeiro MD; Luis Carlos [...] Mya Goetz, DO in OV> ? 09/24/24 1455 ? DD/ 0935 ? TD/TT: 09/01/24 1015 ? Cnc Supervisor: ? Procedure Note Felice, Image - 09/24/[address] [address] Magnetic Resonance Report Signed Patient: Regina WillsonMR#: [id number] : 1980Acct:[id number] Age/Sex: 44 / FADM Date: 09/01/24 Loc: HO.MRI Attending Dr: Luis Carlos Adrian MD Ordering Physician: Luis Carlos Adrian MD Date of Service: 09/01/24 Procedure(s): MR breast BI wo/w con Accession Number(s): [id number] cc: Simona Ribeiro MD; Luis Carlos Adrian [...] by: Mya Goetz DO 09/24/2024 02:55 PM [facility] Dictated By: Mya Goetz DO Signed By: <Electronically signed by Mya Goetz DO in OV> 09/24/24 1455 DD/ 0935 TD/TT: 09/01/24 1015 Cnc Supervisor: us [facility] External Provider IMG MRI PROCEDURES Edited Result - Final * Hemoglobin A1c (02/09/2024 9:24 AM EDT) Hemoglobin A1c 5.7 <6.0 % [facility] Comment:Hemoglobin A1C Refer ence Range Adults: 4.8 - 6.0 % Non diabetic: < 6.0 % Goal: < 7.0 %Additional Action Suggested: > 8.0 %Note: Hemoglobin A1c results are invalid for patients with abnormal amounts of HbF. Blood transfusions may impact the HbA1c concentration in the patient sample. Estimated Average Glucose 117 mg/dL [facility] Comment:eAG = Estimated ave rage glucose which is %A1C expressed asaverage glucose, using the formula of the C1C-IslukveKttckrk Glucose study (ADAG), Diabetes Care, Vol.31,#8,Apr. 2007 02/09/2024 9:24 AM EDT 02/09/2024 9:24 AM EDT us Generic External Data Provider LAB BLOOD ORDERAB LES Final Result Performing Organization Address [facility] Co de Phone Number [facility] [address] [place] [phone] * (ABNORMAL) Lipid Panel, Standard (01/31/2024 10:50 AM EDT) Triglycerides 119 <150 mg/dL [facility] Comment:Desirable Triglyceri de: less than 150 mg/dLBorderline High Triglyceride 150-199 mg/dLHigh Triglyceride: 200-499 mg/dLVery High Triglyceride: greater than or equal to 5OO mg/dL Cholesterol 265(H) <200 mg/dL [facility] Comment:Desirable Cholestero l: less than 200 mg/dLBorderline High Cholesterol: 200-239 mg/dLHigh Cholesterol: greater than 239 mg/dL LDL Cholesterol Calculated 178(H) <100 mg/dL [facility] Comment:Desirable LDL: less than 100 mg/dLNear Optimal/Above Optimal LDL: 110- 129 mg/dLBorderline High LDL: 130-159 mg/dLHigh LDL: 160-189 mg/dLVery High LDL: greater than or equal to 190 mg/dL HDL Cholesterol 64 >40 mg/dL [facility] Comment:Desirable HDL: great er than 40 mg/dL Note: This HDL assay may give artificially low results in patients with liver disease. Blood Venous blood specimen / Unknown 01/31/2024 10:50 AM EDT 01/31/2024 1:10 PM EDT us Simona Gaston MD LAB BLOOD ORDERABLES Final Result Performing Organization Address City/[facility]/ZIP Co de Phone Number [facility] [address] [place] [address] [phone] * HPV E6/E7 RFLX DANNY 16 18/45 (08/18/2021 10:17 AM EST) HPV 16 RNA [facility] HPV 18/45 RNA [facility] HPV E6 E7 ADD [facility] HPV mRNA E6/E7 rflx Not Detected Not Detected [facility] Comment: Methodology: Cruise Guide-Mediated Amplification This assay detects E6/E7 viral messenger RNA (mRNA) from 14 high-risk HPV types (16,18,31,33,35,39,45,51,52,56,58,59,66,68). The analytical performance characteristics of this assay have been determined by [employer]. The modifications have not been cleared or approved by the FDA. This assay has been validated pursuant to the CLIA regulations and is used for clinical purposes. For additional information, please refer to http://education.Deep-Secure/faq/EOJ004e2 (This link if provided for information/ educational purposes only.) THIS TEST WAS PERFORMED AT: [facility] [address] [place] [address] [address] [place], [place] ??[address] JASWINDER PAUL MD 08/18/2021 10:1 7 AM EST Ramesh Maki MD HISTORICAL/NON ORDERABLE LABS Fi nal Result [facility] [address] * Hm Pap Smear (08/18/2021 12:00 AM EST) Historical Provider HEALTH MAINTENANCE Final Result from Last 3 Months or Most Recently Relevant to Health Maintenance [facility] AD[place] Care Teams Sugar Cane Planter Relationship Specialty Start Date End Date Simona Ribeiro MD [address] [place] [phone] PCP - General Family Medicine 07/21/19 [employer] 02/22/24
--- OUTSIDE RECORDS SUMMARY | 2025-01-05 08:26 | XMS_ITS | Encounter Summary ---
Author Organization [employer] Address [address] [facility] 7t [place] [address] Care Team Providers Care Sample Examiner Name Role Phone Simona Ribeiro MD Primary Care Provide r Reason for Visit * Reason Onset Date Comments Home Care Services 12/07/2022 I called the pt regarding a Physician Summary Form, from [facility]. She stated that she does not [...] (Late st Contact Info) Description 12/07/2022 Telephone [facility] MEDICINE [address] [place] [address] Simona Ribeiro MD [address] [place], [place] [phone] Home Care Services (I called the pt regarding a Physician Summary Form, from [facility]. She stated that she does not [...] Description 02/05/2025 2:00 PM EDT Office Visit [facility] MEDICINE [address] [place] [address] Simona Ribeiro MD [address] [place] [address] 03/07/2025 9:00 AM EDT Office Visit [facility] ADULT DENTAL [address] [place] [address] Nevin Cabezas documented as of this encounter Visit Diagnoses Not on filedocumented in this encounter Care Teams Sample Examiner Relationship Specialty Start Date End Date Simona Ribeiro MD [address] [place] [address] PCP - General Family Medicine 07/21/19 [employer] 02/22/24 documented as of this encounter
--- OUTSIDE RECORDS SUMMARY | 2025-01-05 08:26 | XMS_ITS | Encounter Summary ---
Author Organization [employer] Address [address] [facility] 7t [place] [address] Care Team Providers Care Field Installer Name Role Phone Simona Ribeiro MD Primary Care Provide r Reason for Visit * Reason Comments Med Refill Encounter Details Date Type Department Care Team (Late Contact Info) Description 12/22/2022 Refill [facility] MEDICINE [address] [place] [address] [phone] Rishabh Mcnally MD [address] [place] [address] [phone] Vaginal candidiasis Social History Tobacco Use Types [...] Description 02/05/2025 2:00 PM EDT Office Visit [facility] MEDICINE [address] [place] [address] Simona Ribeiro MD [address] [place] [address] 03/07/2025 9:00 AM EDT Office Visit [facility] ADULT DENTAL [address] [place] [address] Nevin Cabezas documented as of this encounter Visit Diagnoses Diagnosis Vaginal candidiasis Candidiasis of vulva and vagina documented in this encounter Care Teams Field Installer Relationship Specialty Start Date End Date Simona Ribeiro MD [address] [place] [address] PCP - General Family Medicine 07/21/19 [email or web address] 02/22/24 documented as of this encounter
--- OUTSIDE RECORDS SUMMARY | 2025-01-05 08:26 | XMS_ITS | Data Portability ---
Author Organization [place] - [facility] S urgical Oncology, GS_OP_RESURRECTION [facility] Address [address] [place] [address] Care Team Providers Care Residential Insurance Inspector Name Role Phone MORRIS DOUGHERTY Referring Provider [phone] Assessment No assessment recorded. Plan of Treatment [...] , dipst ick Leukocytes Trace Not Available [facility] [place] 10/29/2014 11:49:34 10/29/1910/29/2014 urina lysis , dipst ick Nitrite negati ve Not Available [facility] [place] 10/29/2014 11:49:34 10/29/19 15 10/29/2014 urina lysis , dipst ick Blood Negati ve Not Available [facility] [place] 10/29/2014 11:49:34 10/29/19 15 10/29/2014 urina lysis , dipst ick Glucose 100 Not Available [facility] [place] 10/29/2014 11:49:34 10/29/19 15 imagi ng/di agnos tic resul t No observ ation record ed. [email or web address] Not Available 2014 17:11:41 Result Notes None recorded. Problems Name Problem SNOMED Code Status Onset Date Resolution Date Notes Provider Name and Address Organization Details Recorded Time Kidney stone 88870853 Active Alen Martinez M.D. [address] [place] [address], [address] [place] [address], [facility] 5 11:50:50 Increased frequency of urination 118240517 Active Alen Martinez M.D. [address] [place] [address], [address] [place] [address], [facility] 5 14:00:18 Problem Notes None recorded. Procedures Surgical History Date Name Laterality Status Provider Name and Address Organization Details Recorded Time tubiligation completed Alen Martinez M.D. [address] [place], [address], [facility] 10/29/2014 11:18:08 Imaging Results [...] Name and Address Organization Details Recorded Time 55727 Product containin g penicilli n (product) medicatio n Not available Not available Not available 10/29/2014 12022 8001 SNOMED Not Available Not Available Not Available 33717 aspirin medicatio n Not available Not available [...] 5 160.02 cm 35.4 kg/m2 60 /min 92546.4 74 g 110 mm[Hg] 78 mm[Hg] Alen Martinez M.D. [address] [place] [address], [phone] [facility] 5 11:20:37 Social History [...] SNOMED-CT Code Diagnosis ICD10 Code Diagnosis Note [id number] _ [facility] [address] [facility] [place] [address] 10/29/2014 10:43:42 10/29/2014 11:21:31 Kidney stone 62690540 Increased frequency of urination 540046273 Health Concerns Section Related Observation LastModified by Organization Detai ls LastModified Time None Recorded Concern Status LastModified by Organization Details LastModified Time None Recorded Advance Directives Directive None Recorded Payers Encounter Date Sequence Insurance Name Policy Number Policy Fernandes Covered Member ID Fernandes Member ID Guarantor Name 10/29/2014 1 [place] Regina Taveras [id number] Regina Larson Notes Date Note Type Note Provider Name and Address Organization Details Recorded Time 10/29/2014 text/html pt in the er in 08/2014- CT- occ mild right flank pain no ur complaints nocturia x 4-5, ur freq q 2h no hematuria or dysuria no ur stress incontinence occ urgency Alen Martinez M.D. [address] [place], [address], [facility] 10/29/2014 11:51:31 OBGyn Episode No OBEpisode recorded.
--- OUTSIDE RECORDS SUMMARY | 2025-01-05 08:26 | XMS_ITS | Clinical Summary ---
Author Organization [facility] it Address [address] [place] [address] Care Team Providers Care Casing Man Name Role Phone Cecilia Zee AS400 ADMINISTRATOR Primary Care Provider Surgical History Surgery Date Site/Laterality Comments OVARIAN CYST REMOVAL PROCEDURE: DC OVARIAN CYSTECTOMY UNI/BI HYSTERECTOMY PROCEDURE: HISTORICAL HYSTERECTOMY BREAST REDUCTION PROCEDURE: DC BREAST REDUCTION OTHER SURGICAL HISTORY 2007 PROCEDURE: DC PUNCTURE ASPIRATION CYST BREAST EACH ADDL CYST; [...] AM EDT Narrative 07/09/2019 4:44 PM EDT [facility] Diagnostic Imaging Department [address] [place], [place] [id number] Patient: ??ROBERTO ELIZALDE ?/Age/Sex: 1980 - 39 - F Unit#: ??[id number] ? Location/Status: ??SPDIMAM/PRE CLI ? Mnemonic/Ordering Site: ??DIGSC/SPMAM Ordering Physician: ??REI DELACRUZ CNM [facility] Screening Digital - 07/08/19853 EXAM: [facility] Screening Digital EXAM DATE AND TIME: 07/08/2019 9:20 AM HISTORY: ??Screening. Reduction mammoplasty in 2007. Paternal grandmother had breast carcinoma. COMPARISON: ??Previous mammograms done in [place] are not available per the patient. TECHNIQUE: CC and MLO views of both breasts were obtained using full field digital mammography. Bilateral digital breast tomosynthesis was performed in the MLO projection. Computer aided detection with the [place] 7.2-H was employed. TISSUE DENSITY: a. The [...] Routine screening mammogram BILATERAL in 1 year. [address]3007, 67278 3342F, 7025F Dictating Physician: ??ALIS POWER MD Electronically Signed by: ??ALIS POWER MD Dic Date/Time: ??07/09/191642 Sign date/Time: ??07/09/191643 Procedure Note Alis Power - 09/08/2022 [facility] Diagnostic Imaging Department [address] [place] [address] Patient: CARMELINA ELIZALDENATE HernandezO.B./Age/Sex: 1980 - 39 - F Unit#: [id number] Location/Status: SPDIMAM/PRE CLI Mnemonic/Ordering Site: DIGMD/[facility] Ordering Physician: REI DELACRUZ CNM [facility] Screening Digital - 07/08/19 - 0854 EXAM: [facility] Screening Digital EXAM DATE AND TIME: 07/08/2019 9:20 AM HISTORY: Screening. Reduction mammoplasty in 2007. Paternal grandmotherhad breast carcinoma. COMPARISON: Previous mammograms done in [place] are not available perthe patient. TECHNIQUE: CC and MLO views of both breasts were obtained using fullfield digital mammography. Bilateral digital breast tomosynthesis was performedin the MLO projection. Computer aided detection with the [place] 7.2-Givesparkas employed. TISSUE DENSITY: a. The breasts are [...] Routine screening mammogram BILATERAL in 1 year. [address]8584, 44189 3342F, 7025F Dictating Physician: ALIS POWER MD Electronically Signed by: ALIS POWER MD Dic Date/Time: 07/09/19 1643 Sign date/Time: 07/09/194 Rei Delacruz CNM IMG BI PROCEDURES Final Resul t * Pap smear (07/06/2019) 07/06/2019 Narrative HISTORICAL TESTING LAB RESULTING AGENCY - 07/10/2019 1:05 PM EDT [id number] THINPREP PAP, IMAGED: NEGATIVE FOR SQUAMOUS INTRAEPITHELIAL [...] Recently Relevant to Health Maintenance Care Teams Casing Man Relationship Specialty Start Date End Date Cecilia Zee FNP [address] [place] [address] PCP - General Internal Medicine 04/27/19
--- OUTSIDE RECORDS SUMMARY | 2025-01-05 08:27 | XMS_ITS | Encounter Summary ---
Author Organization [employer] Address [address] [facility] 7t [place] [address] Care Team Providers Care Environmental Adviser Name Role Phone Simona Ribeiro MD Primary Care Provide r Encounter Details Date Type Department Care Team (Latest Contact Info) Description 10/04/2019 Abstract [facility] CONVERSIONS Dental, Provider, DDS Social History [...] Description 02/05/2025 2:00 PM EDT Office Visit [facility] MEDICINE [address] [place] [phone] Simona Ribeiro MD [address] [place] [address] 03/07/2025 9:00 AM EDT Office Visit [facility] ADULT DENTAL [address] [place] [address] Nevin Cabezas documented as of this encounter Visit Diagnoses Not on filedocumented in this encounter Care Teams Environmental Adviser Relationship Specialty Start Date End Date Simona Ribeiro MD [address] [place] [address] [phone] PCP - General Family Medicine 11/1/19 [employer] - Biomolecular Determination 02/22/24 documented as of this encounter
--- OUTSIDE RECORDS SUMMARY | 2025-01-05 08:27 | XMS_ITS | Encounter Summary ---
Author Organization [employer] Address [address] [facility] 7t [place] [address] Care Team Providers Care Machine Cementer And Folder Name Role Phone Simona Ribeior MD Primary Care Provide r Encounter Details Date Type Department Care Team (Late Contact Info) Description 06/14/2023 Orders Only [facility] MEDICINE [address] [place], [place] [phone] Nemo Patel Social History Tobacco Use Types [...] 2:00 PM EDT Office Visit [facility] MEDICINE [address] [place], [place] [phone] Simona Ribeiro MD [address] [place], [place] [phone] 03/07/2025 9:00 AM EDT Office Visit [facility] ADULT DENTAL [address] [place], [place] [phone] Nevin Cabezas documented as of this encounter Procedures Procedure Name Priority Date/Time Associated Diagnosis Comments HM PAP/HPV Routine 08/18/2021 12:00 AM EST documented in this encounter Results * Hm Pap Smear (08/18/2021 12:00 AM EST) us Historical Provider HEALTH MAINTENANCE Final Result documented in this encounter Visit Diagnoses Not on filedocumented in this encounter Care Teams Machine Cementer And Folder Relationship Specialty Start Date End Date Simona Ribeiro MD [address] [place] [address] PCP - General Family Medicine 07/21/19 [employer] 02/22/24 documented as of this encounter
--- OUTSIDE RECORDS SUMMARY | 2025-01-05 08:27 | XMS_ITS | Encounter Summary ---
Author Organization [employer] Address [address] [facility] [address] 7[address] [place] [address] Care Team Providers Care Toys And Games Hand Finisher Name Role Phone Simona Ribeiro MD Primary Care Provide r Encounter Details Date Type Department Care Team ([facility] Contact Info) Description 09/01/2022 Telephone [facility]C MED & PEDS [address] [place] [address] Hope Garcia RN Social History Tobacco Use [...] Upcoming Encounters Date Type Department Care Team ([facility] Contact Info) Description 02/05/2025 2:00 PM EDT Office Visit [facility] MEDICINE [address] [place] [address] Simona Ribeiro MD [address] [place] [address] 03/07/2025 9:00 AM EDT Office Visit [facility] ADULT DENTAL [address] [place] [address] Nevin Cabezas documented as of this encounter Visit Diagnoses Not on filedocumented in this encounter Care Teams Toys And Games Hand Finisher Relationship Specialty Start Date End Date Simona Rbieiro MD [address] [place] [address] PCP - General Family Medicine 07/21/19 [email or web address] 02/22/24 documented as of this encounter
--- OUTSIDE RECORDS SUMMARY | 2025-01-05 08:27 | XMS_ITS | Data Portability ---
Author Organization [facility] Medical Severo Titus madsen, [employer] Address [address] [place] [address] Assessment Encounter Date Assessment Date Assessment LastModified [...] migraine. - Pt mentions need referral for trombone slide assembler to perform bariatric surgery---- EKG normal. - Pt mentions she had hysterectomy with ooforectomy on 2011 and need hormone replacement at this time for that reason is requesting a commonwealth attorney referral. Lab results. - Vitamin D - UA -- blood small. Medication list was reviewed, and medication management was discussed. Changes are detailed in the Plan section below. Additional testing or evaluation is detailed in the Plan section below. Instructions regarding follow up were discussed and accepted. [email or web address] Not available 09/28/2017 18:13:18 12/02/2017 12/02/2017 Assessment: [...] microalbum in/creatin ine, mass ratio, urine 2016 [facility], [address], [place], [address], 7 06:12:16 CBC 2016 TERRY Not available 7 16:31:20 lipid panel, serum 2016 TERRY Not available 7 16:31:21 urinalysis , complete 2016 [facility], [address], [place], [address], 7 06:12:15 vitamin B12, serum 2016 TERRY Not available 7 20:31:44 folate, serum 2016 TERRY Not available 7 20:31:45 magnesium, serum or plasma 2016 TERRY Not available 7 16:31:[address] referral 2017 018 [email or web address] Not available 8 09:30:27 endocrinol ogy referral 2017 018 [email or web address] Cayetano Chauhan MD, [address], [address], [address], 8 09:21:[address] referral 2017 018 [email or web address] [facility], [address] [place], [address], 8 09:21:[address] referral 2017 018 [email or web address] Not available 8 09:51:19 ophthalmol ogist referral 2016 017 [email or web address] Antony Gao DO, [address] [place], [address], 8 09:20:10 janitorial supervisor referral 2016 017 [email or web address] Not available 8 09:20:10 Procedures None recorded. Surgeries None recorded. Imaging None recorded. Medication Orders albuterol sulfate HFA 90 mcg/actuat ion aerosol inhaler 2017 018 [facility], [address] [place], [address], 8 12:59:47 Singulair 10 mg tablet 2017 018 [facility], [address] [place], [address], 8 12:59:47 fluticason e propionate 50 mcg/actuat ion nasal spray,susp ension 2017 018 [facility], [address] [place], [address], 8 12:59:47 albuterol sulfate 2.5 mg/3 mL (0.083 %) solution for nebulizati on 2017 018 [facility], [address] [facility], [place], [address], 8 12:59:47 mometasone -formotero l HFA 100 mcg-5 mcg/actuat ion aerosol inhaler 2017 018 [facility], [address] [facility], [place], [address], 8 12:59:47 azithromyc in 250 mg tablet 2017 018 [facility], [address] [place] [address], [address], 8 12:59:47 Contour Next Test Strips 2017 018 INTERFACE [facility], [address] [place] [address], [address], 8 11:14:14 albuterol sulfate 0.63 mg/3 mL solution for nebulizati on 2017 018 [facility]FACE [facility], [address] [place] [address], [address], 8 11:14:18 albuterol sulfate 2.5 mg/3 mL (0.083 %) solution for nebulizati on 2017 018 [facility]FACE [facility], [address] [place] [address], [address], 8 11:14:02 albuterol sulfate HFA 90 mcg/actuat ion aerosol inhaler 2017 018 [facility]FACE [facility], [address] [place] [address], [address], 8 11:14:06 cholecalci ferol (vitamin D3) 1,250 mcg (50,000 unit) capsule 2017 018 [facility], [address] [place] [address], [address], 8 11:14:10 Contour Next Test Strips 2016 INTERFACE [facility], [address] [place] [address], [place], [address], 7 10:33:41 omeprazole 40 mg capsule,de layed release 2016 INTERFACE [facility], [address] [place] [address], [address], 7 10:34:33 atorvastat in 20 mg tablet 2016 INTERFACE [facility], [address] [place] [address], [place], [address], 7 10:34:18 Advair Diskus 250 mcg-50 mcg/dose powder for inhalation 2016 INTERFACE [facility], [address] [place] [address], [address], 7 10:33:45 albuterol sulfate 0.63 mg/3 mL solution for nebulizati on 2016 INTERFACE [facility], [address] [place] [address], [place], [address], 7 10:34:02 fluticason e propionate 50 mcg/actuat ion nasal spray,susp ension 2016 INTERFACE [facility], [address] [place] [address], [address], 7 10:34:02 Singulair 10 mg tablet 2016 017 INTERFACE [facility], [address] [place] [address], [address], 7 10:34:26 albuterol sulfate HFA 90 mcg/actuat ion aerosol inhaler 11/16/ 2017 11/16/2 017 INTERFACE [facility], [address] [facility], [place], [address], 7 10:34:22 Vitamin D2 1,250 mcg (50,000 unit) capsule 2016 017 [facility]FACE [facility], [address] [facility], [place], [address], 7 10:33:51 amitriptyl ine 25 mg tablet 2016 017 [facility]FACE [facility], [address] [facility], [place], [address], 7 10:34:09 Fioricet 50 mg-300 mg-40 mg capsule 2016 017 [facility], [address] [facility], [place], [address], 7 10:46:58 Topamax 25 mg tablet 2016 017 [facility], [address] [facility], [place], [address], 7 10:34:21 Patient TargetsNo targets recorded. Patient Instructions Encounter Date Encounter Id Patient Instructions Last Modified By Organization Details Last Modified Time 08/05/2017 [id number] The patient diagnosis, treatment and medicines were discussed, including side effects. The patient was provided with appropriate answers, was given appropriate prescriptions and next appointment as needed. No further questions from the patient. Not available 08/05/2017 10:22:40 09/28/2017 [id number] high cholesterol : care instructions [email or web address] Not available 09/28/2017 11:12:07 back care and preventing injuries: care instructions [email or web address] Not available 09/28/2017 11:12:07 getting back to normal after low back pain: care instructions Not available 09/28/2017 11:12:07 learning about relief for back pain [email or web address] Not available 09/28/2017 11:12:07 menopausal hormo ne therapy (ht): care instructions [email or web address] Not available 09/28/2017 11:12:07 controlling your asthma: care instructions [email or web address] Not available 09/28/2017 11:12:07 learning about asthma [email or web address] Not available 09/28/2017 11:12:07 learning about mood disorders [email or web address] Not available 09/28/2017 11:12:07 When You Want to Lose Weight: Care Instructions [email or web address] Not available 09/28/2017 11:12:07 Cuando desea gali rice de peso: Instrucciones de cuidado - [When You Want to Lose Weight: Care Instructions] [email or web address] Not available 09/28/2017 11:12:07 The patient diagnosis, treatment and medicines were discussed, including side effects. The patient was provided with appropriate answers, was given appropriate prescriptions and next appointment as needed. No further questions from the patient. [email or web address] Not available 09/28/2017 10:37:58 12/02/2017 [id number] The patient diagnosis, treatment and medicines were discussed, including side effects. The patient was provided with appropriate answers, was given appropriate prescriptions and next appointment as needed. No further questions from the patient. 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 Officer Referral for Олег dy mass index 30+ - obesity Referring Physician: Jason Mello, Internal Medicine, Encounter Date: 09/28/2017 Psychiatrist Referral for De pressive disorder Referring Physician: Jason Mello Internal Medicine, Encounter Date: 09/28/2017 Security Flex Utility Officer Referral for Олег dy mass index 30+ - obesity Referring Physician: Ibis Singer Physician University Administrator, Encounter Date: 12/02/2017 Results Created Date Observation Date Name Description Value Unit Range Abnormal Flag Note LastModifiedBy Organization Detail LastModifiedTime 08/05/20 17 08/05/2017 urina lysis , compl ete color Yellow Not Available [facility] (Lab) [address] [facility], [place], [address], 08/06/2017 06:12:15 08/05/20 17 08/05/2017 urina lysis , compl ete clarity Cloudy Not Available [facility] (Lab) [address] [facility], [place], [address], 08/06/2017 06:12:15 08/05/20 17 08/05/2017 urina lysis , compl ete bilirubin Negati ve negati ve normal Not Available [facility] (Lab) [address] [facility], [place], [address], 08/06/2017 06:12:15 08/05/20 17 08/05/2017 urina lysis , compl ete urobilinogen <2.0 mg/dL 0.2-1. 9 normal Not Available [facility] (Lab) [address] [facility], [place], [address], 08/06/2017 06:12:15 08/05/20 17 08/05/2017 urina lysis , compl ete ketones Negati ve mg/dL negati ve normal Not Available [facility] (Lab) [address] [facility], [place], [address], 08/06/2017 06:12:15 08/05/20 17 08/05/2017 urina lysis , compl ete glucose Negati ve mg/dL negati ve normal Not Available [facility] (Lab) [address] [facility], [place], [address], 08/06/2017 06:12:15 08/05/20 17 08/05/2017 urina lysis , compl ete protein 30 mg/dL negati ve abnormal Not Available [facility] (Lab) [address] [facility], [place], [address], 08/06/2017 06:12:15 08/05/20 17 08/05/2017 urina lysis , compl ete blood Small negati ve abnormal Not Available [facility] (Lab) [address] [facility], [place], [address], 08/06/2017 06:12:15 08/05/20 17 08/05/2017 urina lysis , compl ete pH 6.0 5.0-9. 0 normal Not Available [facility] (Lab) [address] [facility], [place], [address], 08/06/2017 06:12:15 08/05/20 17 08/05/2017 urina lysis , compl ete nitrite Negati ve negati ve normal Not Available [facility] (Lab) [address] [facility], [place], [address], 08/06/2017 06:12:15 08/05/20 17 08/05/2017 urina lysis , compl ete leuk esterase Large negati ve abnormal Not Available [facility] (Lab) [address] [facility], [place], [address], 08/06/2017 06:12:15 08/05/20 17 08/05/2017 urina lysis , compl ete specific gravity 1.031 1.001- 1.035 normal Not Available [facility] (Lab) [address] [facility], [place], [address], 08/06/2017 06:12:15 08/05/20 17 08/05/2017 urina lysis , compl ete red blood cell 3-4 #/hpf none,0 -2 abnormal Not Available [facility] (Lab) [address] [facility], [place], [address], 08/06/2017 06:12:15 08/05/20 17 08/05/2017 urina lysis , compl ete white blood cell 30-49 #/hpf none,0 -5 abnormal Not Available [facility] (Lab) [address] [facility], [place], [address], 08/06/2017 06:12:15 08/05/20 17 08/05/2017 urina lysis , compl ete bacteria Few /hpf none abnormal Not Available [facility] (Lab) [address], [place], [address], 08/06/2017 06:12:15 08/05/20 17 08/05/2017 urina lysis , compl ete mucus Modera te /hpf none,t race,f ew abnormal Not Available [facility] (Lab) [address], [place], [address], 08/06/2017 06:12:15 08/05/20 17 08/05/2017 urina lysis , compl ete non-squamous epi Trace /hpf none abnormal Not Available [facility] (Lab) [address], [place], [address], 08/06/2017 06:12:15 08/05/20 17 08/05/2017 urina lysis , compl ete squam epi cells Modera te /hpf none abnormal Not Available [facility] (Lab) [address] [facility], [place], [address], 08/06/2017 06:12:15 08/05/20 17 08/05/2017 micro album in/cr eatin ine, mass ratio , urine creatinine, urine 302 mg/dL No Refer ence Range avail able for Rando m Urine s. Not Available [facility] (Lab) [address], [place], [address], 08/06/2017 06:12:16 08/05/20 17 08/05/2017 micro album in/cr eatin ine, mass ratio , urine microalbumin 1.9 mg/dL 0.0-1. 9 normal Not Available [facility] (Lab) [address], [place], [address], 08/06/2017 06:12:16 08/05/20 17 08/05/2017 micro album in/cr eatin ine, mass ratio , urine microalbumin /creatinine ratio 6 mcg/m g 0-30 normal Not Available [facility] (Lab) [address], [place], [address], 08/06/2017 06:12:16 08/06/20 17 08/06/2017 CMP, serum or plasm a sodium 142 mmol/ L 136 - 145 Not Available [facility] [address] [facility] [address], [place], [address], 08/06/2017 16:31:17 08/06/20 17 08/06/2017 CMP, serum or plasm a potassium 4.3 mmol/ L 3.5 - 5.1 Not Available [facility] [address], [place], [address], 08/06/2017 16:31:17 08/06/20 17 08/06/2017 CMP, serum or plasm a chloride 104 mmol/ L 98 - 107 Not Available [facility] [address] [facility] [address], [place], [address], 08/06/2017 16:31:17 08/06/20 17 08/06/2017 CMP, serum or plasm a carbon dioxide 30 mmol/ L 23 - 31 Not Available [facility] [address] [facility] [address], [place], [address], 08/06/2017 16:31:17 08/06/20 17 08/06/2017 CMP, serum or plasm a anion gap 12.3 7.0 - 34.0 Not Available [facility] [address] [facility] [address], [place], [address], 08/06/2017 16:31:17 08/06/20 17 08/06/2017 CMP, serum or plasm a glucose 90 mg/dL 74 - 106 Not Available [facility] [address] [facility] [address], [place], [address], 08/06/2017 16:31:17 08/06/20 17 08/06/2017 CMP, serum or plasm a BUN 14.0 mg/dL 6 - 20 Not Available [facility] [address], [place], [address], 08/06/2017 16:31:17 08/06/20 17 08/06/2017 CMP, serum or plasm a creatinine 0.9 mg/dL 0.5 - 1.2 Not Available [facility] [address] [facility] [address], [place], [address], 08/06/2017 16:31:17 08/06/20 17 08/06/2017 CMP, serum or plasm a calcium 9.9 mg/dL 8.4 - 10.5 Not Available [facility] [address] [facility] [address], [place], [address], 08/06/2017 16:31:17 08/06/20 17 08/06/2017 CMP, serum or plasm a total protein 7.5 g/dL 6.4 - 8.3 Not Available [facility] [address] [facility] [address], [place], [address], 08/06/2017 16:31:17 08/06/20 17 08/06/2017 CMP, serum or plasm a albumin 4.7 g/dL 3.5 - 4.8 Not Available [facility] [address] [facility] [address], [place], [address], 08/06/2017 16:31:17 08/06/20 17 08/06/2017 CMP, serum or plasm a globulin 2.8 g/dL 2.3 - 3.5 Not Available [facility] [address] [facility] [address], [place], [address], 08/06/2017 16:31:17 08/06/20 17 08/06/2017 CMP, serum or plasm a A/G 1.7 # 9 - 56 low Not Available [facility] [address] [facility] [address], [place], [address], 08/06/2017 16:31:17 08/06/20 17 08/06/2017 CMP, serum or plasm a alk phos 82 U/L 42 - 141 Not Available [facility] [address] [facility] [address], [place], [address], 08/06/2017 16:31:17 08/06/20 17 08/06/2017 CMP, serum or plasm a ALT 24 U/L 7 - 34 Not Available [facility] [address] [facility] [address], [place], [address], 08/06/2017 16:31:17 08/06/20 17 08/06/2017 CMP, serum or plasm a AST 21 U/L 7 - 31 Not Available [facility] [address] [facility] [address], [place], [address], 08/06/2017 16:31:17 08/06/20 17 08/06/2017 CMP, serum or plasm a total bilirubin 0.5 mg/dL 0 - 1.2 Not Available [facility] [address] [facility] [address], [place], [address], 08/06/2017 16:31:17 08/06/20 17 08/06/2017 CMP, serum or plasm a age 37 years Not Available [facility] [address] [facility] [address], [place], [address], 08/06/2017 16:31:17 08/06/20 17 08/06/2017 CMP, serum or plasm a sex multiplier 0.742 # Not Available [facility] [address] [facility] [address], [place], [address], 08/06/2017 16:31:17 08/06/20 17 08/06/2017 CMP, serum or plasm a eGFR aa 85 mL/mi n/1.7 3 60 - 300 Not Available [facility] [address] [facility] [address], [place], [address], 08/06/2017 16:31:17 08/06/20 17 08/06/2017 CMP, serum or plasm a eGFR nonaa 70 mL/mi n/1.7 3 60 - 300 Not Available [facility] [address] [facility] [address], [place], [address], 08/06/2017 16:31:17 08/06/20 17 08/06/2017 CBC WBC 5.3 10*3/ uL 3.5 - 10.0 Not Available [facility] [address] [facility] [address], [place], [address], 08/06/2017 16:31:20 08/06/20 17 08/06/2017 CBC RBC 4.90 10*6/ uL 3.9 - 5.10 Not Available [facility] [address] [facility] [address], [place], [address], 08/06/2017 16:31:20 08/06/20 17 08/06/2017 CBC HGB 14.2 g/dL 12.0 - 15.0 Not Available [facility] [address] [facility] [address], [place], [address], 08/06/2017 16:31:20 08/06/20 17 08/06/2017 CBC HCT 43.3 % 37.0 - 45.0 Not Available [facility] [address] [facility] [address], [place], [address], 08/06/2017 16:31:20 08/06/20 17 08/06/2017 CBC MCV 88.0 fL 83 - 100 Not Available [facility] [address] [facility] [address], [place], [address], 08/06/2017 16:31:20 08/06/20 17 08/06/2017 CBC MCH 29.1 pg 26.0 - 34.0 Not Available [facility] [address] [facility] [address], [place], [address], 08/06/2017 16:31:20 08/06/20 17 08/06/2017 CBC MCHC 32.9 g/dL 32.0 - 35 Not Available [facility] [address] [facility] [address], [place], [address], 08/06/2017 16:31:20 08/06/20 17 08/06/2017 CBC RDW 14.2 % 12.0 - 16.0 Not Available [facility] [address] [facility] [address], [place], [address], 08/06/2017 16:31:20 08/06/20 17 08/06/2017 CBC plt 328 10*3/ uL 145 - 355 Not Available [facility] [address] [facility] [address], [place], [address], 08/06/2017 16:31:20 08/06/20 17 08/06/2017 CBC MPV 7.5 fL 7.3 - 10.0 Not Available [facility] [address] [facility] [address], [place], [address], 08/06/2017 16:31:20 08/06/20 17 08/06/2017 CBC gr% 39.4 % 49 - 79 low Not Available [facility] [address] [facility] [address], [place], [address], 08/06/2017 16:31:20 08/06/20 17 08/06/2017 CBC gr# 2.2 # 1.1 - 6.0 Not Available [facility] [address] [facility] [address], [place], [address], 08/06/2017 16:31:20 08/06/20 17 08/06/2017 CBC MO% 9.0 % 2.0 - 6.0 high Not Available [facility] [address] [facility] [address], [place], [address], 08/06/2017 16:31:20 08/06/20 17 08/06/2017 CBC MO# 0.4 # 0.3 - 1.0 Not Available [facility] [address] [facility] [address], [place], [address], 08/06/2017 16:31:20 08/06/20 17 08/06/2017 CBC ly% 51.6 % 19.0 - 47.0 high Not Available [facility] [address] [facility] [address], [place], [address], 08/06/2017 16:31:20 08/06/20 17 08/06/2017 CBC ly# 2.7 # 0.7 - 3.7 Not Available [facility] [address] [facility] [address], [place], [address], 08/06/2017 16:31:20 08/06/20 17 08/06/2017 lipid panel , serum cholesterol 183 mg/dL 100 - 199 Not Available [facility] [address] [facility] [address], [place], [address], 08/06/2017 16:31:21 08/06/20 17 08/06/2017 lipid panel , serum triglyceride 76 mg/dL 0 - 150 Not Available [facility] [address] [facility] [address], [place], [address], 08/06/2017 16:31:21 08/06/20 17 08/06/2017 lipid panel , serum HDL 46 mg/dL 30 - 85 Not Available [facility] [address] [facility] [address], [place], [address], 08/06/2017 16:31:21 08/06/20 17 08/06/2017 lipid panel , serum LDL-calculat ed 122 mg/dL 0 - 100 high Not Available [facility] [address] [facility] [address], [place], [address], 08/06/2017 16:31:21 08/06/20 17 08/06/2017 lipid panel , serum C/H 4.0 # 1.0 - 4.0 Not Available [facility] [address] [facility] [address], [place], [address], 08/06/2017 16:31:21 08/06/20 17 08/06/2017 magne sium, serum or plasm a magnesium 2.3 mg/dL 1.7 - 2.8 Not Available [facility] [address] [facility] [facility] [address], [place], [address], 08/06/2017 16:31:22 08/06/20 17 08/06/2017 HbA1c (hemo globi n A1c), blood hemoglobin A1C 5.8 % 4 - 6 Not Available [facility] [address] [facility] [address], [place], [address], 08/09/2017 16:41:30 08/06/20 17 08/06/2017 T3, total , serum TT3 1.4 NG/mL 0.7 - 1.7 Not Available [facility] [address], [place], [address], 08/11/2017 20:31:08 08/06/20 17 08/06/2017 TSH, serum or plasm a TSH 1.1 mIU/L 0.5 - 6.8 Not Available [facility] [address], [place], [address], 08/11/2017 20:31:12 08/06/20 17 08/06/2017 T4, free, serum free T4 1.5 NG/dL 0.75 - 1.54 Not Available [facility] [address] [address], [place], [address], 08/11/2017 20:31:43 08/06/20 17 08/06/2017 vitam in B12, serum vitamin B12 581 pg/mL 230 - 1050 Not Available [facility] [address], [place], [address], 08/11/2017 20:31:44 08/06/20 17 08/06/2017 folat e, serum folate 11.5 NG/mL 3 - 16 Not Available [facility] [address], [place], [address], 08/11/2017 20:31:45 08/06/20 17 08/06/2017 vitam in D, 25-hy droxy , total , serum vitamin D 27.9 NG/dL 31 - 100 low Not Available [facility] [address] [facility] [address], [place], [address], 08/18/2017 16:29:27 12/03/19 18 12/02/2017 urina lysis , compl ete color Yellow Not Available [facility] [facility] (Lab) [address], [place], [address], 12/03/2017 07:00:01 12/03/19 18 12/02/2017 urina lysis , compl ete clarity Slight ly-Apryl udy Not Available [facility] (Lab) [address], [place], [address], 12/03/2017 07:00:01 12/03/19 18 12/02/2017 urina lysis , compl ete bilirubin Negati ve negati ve normal Not Available [facility] (Lab) [address], [place], [address], 12/03/2017 07:00:01 12/03/19 18 12/02/2017 urina lysis , compl ete urobilinogen <2.0 mg/dL 0.2-1. 9 normal Not Available [facility] (Lab) [address], [place], [address], 12/03/2017 07:00:01 12/03/19 18 12/02/2017 urina lysis , compl ete ketones Negati ve mg/dL negati ve normal Not Available [facility] (Lab) [address], [place], [address], 12/03/2017 07:00:01 12/03/19 18 12/02/2017 urina lysis , compl ete glucose Negati ve mg/dL negati ve normal Not Available [facility] (Lab) [address], [place], [address], 12/03/2017 07:00:01 12/03/19 18 12/02/2017 urina lysis , compl ete protein Negati ve mg/dL negati ve normal Not Available [facility] (Lab) [address], [place], [address], 12/03/2017 07:00:01 12/03/19 18 12/02/2017 urina lysis , compl ete blood Negati ve negati ve normal Not Available [facility] (Lab) [address], [place], [address], 12/03/2017 07:00:01 12/03/19 18 12/02/2017 urina lysis , compl ete pH 6.0 5.0-9. 0 normal Not Available [facility] (Lab) [address], [place], [address], 12/03/2017 07:00:01 12/03/19 18 12/02/2017 urina lysis , compl ete nitrite Negati ve negati ve normal Not Available [facility] (Lab) [address], [place], [address], 12/03/2017 07:00:01 12/03/19 18 12/02/2017 urina lysis , compl ete leuk esterase Trace negati ve abnormal Not Available [facility] (Lab) [address], [place], [address], 12/03/2017 07:00:01 12/03/19 18 12/02/2017 urina lysis , compl ete specific gravity 1.020 1.001- 1.035 normal Not Available [facility] (Lab) [address], [place], [address], 12/03/2017 07:00:01 12/03/19 18 12/02/2017 urina lysis , compl ete red blood cell 0-2 #/hpf none,0 -2 normal Not Available [facility] (Lab) [address] [place], [address], 12/03/2017 07:00:01 12/03/19 18 12/02/2017 urina lysis , compl ete white blood cell 0-5 #/hpf none,0 -5 normal Not Available [facility] (Lab) [address] [place], [address], 12/03/2017 07:00:01 12/03/19 18 12/02/2017 urina lysis , compl ete bacteria None /hpf none normal Not Available [facility] (Lab) [address], [place], [address], 12/03/2017 07:00:01 12/03/19 18 12/02/2017 urina lysis , compl ete mucus Few /hpf none,t race,f ew normal Not Available [facility] (Lab) [address], [place], [address], 12/03/2017 07:00:01 12/03/19 18 12/02/2017 urina lysis , compl ete squam epi cells Modera te /hpf none abnormal Not Available [facility] (Lab) [address], [place], [address], 12/03/2017 07:00:01 12/03/19 18 12/02/2017 HbA1c (hemo globi n A1c), blood hemoglobin A1C 6.5 % 4 - 6 high Not Available [facility] [address], [place], [address], 12/03/2017 18:54:16 12/03/19 18 12/02/2017 homoc ystei ne, blood homocysteine 10.4 umol/ L 6.6 - 17.8 Not Available [facility] [address], [place], [address], 12/08/2017 17:59:22 12/04/19 18 12/03/2017 CBC WBC 5.0 10*3/ uL 3.5 - 10.0 Not Available [facility] [address], [place], [address], 12/03/2017 18:54:19 12/04/19 18 12/03/2017 CBC RBC 4.86 10*6/ uL 3.9 - 5.10 Not Available [facility] [address], [place], [address], 12/03/2017 18:54:19 12/04/19 18 12/03/2017 CBC HGB 14.3 g/dL 12.0 - 15.0 Not Available [facility] [address], [place], [address], 12/03/2017 18:54:19 12/04/19 18 12/03/2017 CBC HCT 44.4 % 37.0 - 45.0 Not Available [facility] [address], [place], [address], 12/03/2017 18:54:19 12/04/19 18 12/03/2017 CBC MCV 91.0 fL 83 - 100 Not Available [facility] [address], [place], [address], 12/03/2017 18:54:19 12/04/19 18 12/03/2017 CBC MCH 29.5 pg 26.0 - 34.0 Not Available [facility] [address], [place], [address], 12/03/2017 18:54:19 12/04/19 18 12/03/2017 CBC MCHC 32.2 g/dL 32.0 - 35 Not Available [facility] [address], [place], [address], 12/03/2017 18:54:19 12/04/19 18 12/03/2017 CBC RDW 14.0 % 12.0 - 16.0 Not Available [facility] [address], [place], [address], 12/03/2017 18:54:19 12/04/19 18 12/03/2017 CBC plt 310 10*3/ uL 145 - 355 Not Available [facility] [address], [place], [address], 12/03/2017 18:54:19 12/04/19 18 12/03/2017 CBC MPV 7.8 fL 7.3 - 10.0 Not Available [facility] [address], [place], [address], 12/03/2017 18:54:19 12/04/19 18 12/03/2017 CBC gr% 43.1 % 49 - 79 low Not Available [facility] [address] [address], [place], [address], 12/03/2017 18:54:19 12/04/19 18 12/03/2017 CBC gr# 2.3 # 1.1 - 6.0 Not Available [facility] [address] [address], [place], [address], 12/03/2017 18:54:19 12/04/19 18 12/03/2017 CBC MO% 8.9 % 2.0 - 6.0 high Not Available [facility] [address] [address], [place], [address], 12/03/2017 18:54:19 12/04/19 18 12/03/2017 CBC MO# 0.4 # 0.3 - 1.0 Not Available [facility] [address] [address], [place], [address], 12/03/2017 18:54:19 12/04/19 18 12/03/2017 CBC ly% 48.0 % 19.0 - 47.0 high Not Available [facility] [address] [address], [place], [address], 12/03/2017 18:54:19 12/04/19 18 12/03/2017 CBC ly# 2.3 # 0.7 - 3.7 Not Available [facility] [address] [address], [place], [address], 12/03/2017 18:54:19 12/04/19 18 12/03/2017 magne sium, serum or plasm a magnesium 2.2 mg/dL 1.7 - 2.8 Not Available [facility] [address], [place], [address], 12/07/2017 20:29:44 12/04/19 18 12/03/2017 CMP, serum or plasm a sodium 143 mmol/ L 136 - 145 Not Available [facility] [address], [place], [address], 12/07/2017 20:29:45 12/04/19 18 12/03/2017 CMP, serum or plasm a potassium 4.4 mmol/ L 3.5 - 5.1 Not Available [facility] [address], [place], [address], 12/07/2017 20:29:45 12/04/19 18 12/03/2017 CMP, serum or plasm a chloride 104 mmol/ L 98 - 107 Not Available [facility] [address] [facility] [address], [place], [address], 12/07/2017 20:29:45 12/04/19 18 12/03/2017 CMP, serum or plasm a carbon dioxide 30 mmol/ L 23 - 31 Not Available [facility] [address] [facility] [address], [place], [address], 12/07/2017 20:29:45 12/04/19 18 12/03/2017 CMP, serum or plasm a anion gap 13.4 7.0 - 34.0 Not Available [facility] [address] [facility] [address], [place], [address], 12/07/2017 20:29:45 12/04/19 18 12/03/2017 CMP, serum or plasm a glucose 84 mg/dL 74 - 106 Not Available [facility] [address] [facility] [address], [place], [address], 12/07/2017 20:29:45 12/04/19 18 12/03/2017 CMP, serum or plasm a BUN 10.4 mg/dL 6 - 20 Not Available [facility] [address] [facility] [address], [place], [address], 12/07/2017 20:29:45 12/04/19 18 12/03/2017 CMP, serum or plasm a creatinine 0.9 mg/dL 0.5 - 1.2 Not Available [facility] [address] [facility] [address], [place], [address], 12/07/2017 20:29:45 12/04/19 18 12/03/2017 CMP, serum or plasm a calcium 10.4 mg/dL 8.4 - 10.5 Not Available [facility] [address], [place], [address], 12/07/2017 20:29:45 12/04/19 18 12/03/2017 CMP, serum or plasm a total protein 7.6 g/dL 6.4 - 8.3 Not Available [facility] [address], [place], [address], 12/07/2017 20:29:45 12/04/19 18 12/03/2017 CMP, serum or plasm a albumin 4.7 g/dL 3.5 - 4.8 Not Available [facility] [address], [place], [address], 12/07/2017 20:29:45 12/04/19 18 12/03/2017 CMP, serum or plasm a globulin 2.9 g/dL 2.3 - 3.5 Not Available [facility] [address], [place], [address], 12/07/2017 20:29:45 12/04/19 18 12/03/2017 CMP, serum or plasm a A/G 1.6 # 9 - [address] [facility] [address] [facility] [address], [place], [address], 12/07/2017 20:29:45 12/04/19 18 12/03/2017 CMP, serum or plasm a alk phos 89 U/L 42 - 141 Not Available [facility] [address] [facility] [address], [place], [address], 12/07/2017 20:29:45 12/04/19 18 12/03/2017 CMP, serum or plasm a ALT 31 U/L 7 - 34 Not Available [facility] [address], [place], [address], 12/07/2017 20:29:45 12/04/19 18 12/03/2017 CMP, serum or plasm a AST 24 U/L 7 - 31 Not Available [facility] [address], [place], [address], 12/07/2017 20:29:45 12/04/19 18 12/03/2017 CMP, serum or plasm a total bilirubin 0.4 mg/dL 0 - 1.2 Not Available [facility] [address] [facility] [address], [place], [address], 12/07/2017 20:29:45 12/04/19 18 12/03/2017 CMP, serum or plasm a age 37 years Not Available [facility] [address] [facility] [address], [place], [address], 12/07/2017 20:29:45 12/04/19 18 12/03/2017 CMP, serum or plasm a sex multiplier 0.742 # Not Available [facility] [address], [place], [address], 12/07/2017 20:29:45 12/04/19 18 12/03/2017 lipid panel , serum cholesterol 200 mg/dL 100 - 199 high Not Available [facility] [address] [facility] [address], [place], [address], 12/07/2017 20:29:46 12/04/19 18 12/03/2017 lipid panel , serum triglyceride 116 mg/dL 0 - 150 Not Available [facility] [address] [facility] [address], [place], [address], 12/07/2017 20:29:46 12/04/19 18 12/03/2017 lipid panel , serum HDL 59 mg/dL 30 - 85 Not Available [facility] [address] [facility] [address], [place], [address], 12/07/2017 20:29:46 12/04/19 18 12/03/2017 lipid panel , serum LDL-calculat ed 118 mg/dL 0 - 100 high Not Available [facility] [address] [facility] [address], [place], [address], 12/07/2017 20:29:46 12/04/19 18 12/03/2017 lipid panel , serum C/H 3.4 # 1.0 - 4.0 Not Available [facility] [address] [facility] [address], [place], [address], 12/07/2017 20:29:46 12/04/19 18 12/03/2017 TSH, serum or plasm a TSH .7 mIU/L 0.5 - 6.8 Not Available [facility] [address] [facility] [address], [place], [address], 12/11/2017 11:04:27 12/04/19 18 12/03/2017 vitam in D, 25-hy droxy , total , serum vitamin D 13.0 NG/dL 31 - 100 critical low Not Available [facility] [address] [facility] [address], [place], [address], 12/11/2017 11:04:30 08/17/20 17 08/05/2017 elect rodrigo rodriguez am No observ ation record ed. [email or web address] Not Available 08/17 17:33:24 Result Notes None recorded. Problems Name Problem SNOMED Code Status Onset Date Resolution Date Notes Provider Name and Address Organization Details Recorded Time Kidney disease 33173750 Active Kiarra schafer [facility] 5 10:22:31 Obesity 135811809 Active HOWIE schafer [facility] 6 13:57:32 Kidney stone 70142547 Active Jason Mello MD [address], [place], [address], [facility] 5 11:56:28 Dysphagia [id number] Fawad Mello MD [address], [place], [address], [place] [facility] 5 10:32:09 Diverticular disease [id number] Fawad Mello MD [address], [place], [address], [place] [facility] 5 11:56:28 Gastritis 5602718 Active Cornelia Dumasia [place] [facility] 5 11:21:41 Esophagitis [id number] Fawad Mello MD [address], [place], [address], [facility] 5 11:36:09 Body mass index 30+ - obesity 096914133 Active Cornelia [place] [facility] 6 17:12:50 Petechiae of skin 841746446 Fawad Mello MD [address], [place], [address], [place] [facility] 5 11:36:09 Upper respiratory infection [id number] Fawad Mello MD [address], [place], [address], [place] [facility] 5 11:56:28 Vitamin D deficiency 85202833 Active Cornelia [place] [facility] 6 10:48:46 Pain in lower limb 73041512 Active Vianney [place]idal[place] [facility] 5 10:33:06 Acute pharyngitis 697468800 Active Cornelia [place] [facility] 5 10:31:27 Allergic rhinitis 50185462 Active HOWIE CHAMBERS [place] [facility] 6 13:57:32 Chronic back pain 634691564 Active Cornelia [place]andsasia [place] [facility] 6 17:12:50 Dizziness 151433924 Active Cornelia [place] [facility] 6 17:12:50 Hyperuricemia 41591053 Active Cornelia [place] [facility] 6 17:12:50 Hyperlipidemia 93982628 Active Cornelia [place]ands[place] [facility] 6 17:12:50 Constipation 64215209 Active Cornelia [place]ands[place] [facility] 6 17:12:50 Low back pain 716731052 Active Vianney [place]idal[place] [facility] 5 10:33:06 Sciatica 62821724 Active Vianney [place] [facility] 5 10:33:06 Depressive disorder 66025983 Active Cornelia [place]ands[place] [facility] 6 17:12:50 Asthma 415726590 Active Venecia Paez [place] [facility] 6 13:25:29 Migraine 24692364 Active HOWIE CHAMBERS [place] [facility] 6 13:57:32 Problem Notes None recorded. Procedures Surgical History Date Name Laterality Status Provider Name and Address Organization Details Recorded Time 08/26/20 17 Date of Last Pap Smear completed Corrie Gonsales [place] [facility] 12/02/2017 11:54:17 11/19/19 17 Most Recent Mammogram completed Corrie Gonsales [place] [facility] 12/02/2017 11:53:45 09/20/19 12 Hysterectomy completed Kiarra Aldana [place] [facility] 07/30/2014 12:09:27 09/20/19 08 Breast Surgery completed Kiarra Aldana [place] [facility] 07/30/2014 12:09:27 09/20/19 04 Tubal Ligation completed Kiarra Aldana [facility] 07/30/2014 12:09:27 Imaging Results [...] Not available other moderate Not available 06/19/2014 [address] UNK thora t closu re Not Available Not Available Not Available [address] [place] Aspirin medicatio n hives Not available Not available 06/19/2014 [id number] RxNorm Not Available Not Available Not [...] 7 160.02 cm 97.6 [degF] 35.3 kg/m2 23775.8 8 g 95 % 95 % 70 /min 94 mm[Hg] 62 mm[Hg] Corrie Gonsales [facility] 7 10:17:07 Date Recorded Body height Body temperature Heart rate Oxygen saturation Oxygen saturation in Arterial blood by Pulse oximetry Body mass index (BMI) Body weight Systolic blood pressure Diastolic blood pressure Provider Name and Address Organization Details Last Updated DateTime 8 160.02 cm 98 [degF] 74 /min 96 % 96 % 35.1 kg/m2 72250.2 9 g 120 mm[Hg] 80 mm[Hg] Rosario Villarreal [facility] 8 10:11:35 Date Recorded Body height Body temperature Body mass index (BMI) Body weight Oxygen saturation Oxygen saturation in Arterial blood by Pulse oximetry Heart rate Systolic blood pressure Diastolic blood pressure Provider Name and Address Organization Details Last Updated DateTime 8 160.02 cm 96.8 [degF] 34.2 kg/m2 11795.3 3 g 98 % 98 % 65 /min 123 mm[Hg] 84 mm[Hg] Corrie Gonsales [facility] 8 11:57:46 Social History Question Answer Notes LastModified by Organizat ion Details LastModified Time Tobacco Smoking Status Never Smoker Rachel schafer [facility] 06/19/2014 12:28:53 What Is Your Level Of Alcohol Consumption? None [email or web address] Information not available 06/19/2014 How Many Years Have You Consumed Alcohol? 0 Information not available 07/08/2015 Are You Blind Or Do You Have Difficulty Seeing? Yes Information n ot available 07/30/2014 What Is Your Level Of Caffeine Consumption? None Information not available 06/19/2014 How Much Tobacco Do You Chew? None Information not available 07/08/2015 Are You Currently Employed? No [email or web address] Information not available 09/28/2017 Are You Deaf Or Do You Have Serious Difficulty Hearing? No Information not available 07/30/2014 What Type Of Diet Are You Following? REGULAR [email or web address] Information n ot available 06/19/2014 Which Illicit Or Recreational Drugs Have You Used? NONE [email or web address] Information not available 06/19/2014 Education 4 Year College Information not available 09/28/2017 What Is The Highest Grade Or Level Of School You Have Completed Or The Highest Degree You Have Received? [id number] Information not available 12/02/2017 What Is Your Occupation? NONE [email or web address] Information not available 12/02/2017 How Many Days Of Moderate To Strenuous Exercise, Like A Brisk Walk, Did You Do In The Last 7 Days? 3 [email or web address] Information not available 12/02/2017 On Those Days That You Engage In Moderate To Strenuous Exercise, How Many Minutes, On Average, Do You Exercise? 3 [email or web address] Information not available 12/02/2017 How Hard Is It For You To Pay For The Very Basics Like Food, Housing, Medical Care, And Heating? [id number] [email or web address] Information not available 12/02/2017 Are There Any Guns Present In Your Home? Yes [email or web address] Information not available 09/28/2017 Hard Of Hearing Or Deaf In One Or Both Ears? 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 No [email or web address] Information no t available 09/28/2017 Live Alone Or With Others? With Others [email or web address] Information not available 06/19/2014 Are There Any Behavioral, Verbal Or Physical Signs Of Dental Pain? No [email or web address] Information not available 09/28/2017 Do You Have Swollen, Bleeding, Ulcer, White/red Patches, Redness Under Dentures? No [email or web address] Information not available 09/28/2017 Do You Have Constant Bad Breath? No [email or web address] Information not available 09/28/2017 Do You Have More Than One Broken Tooth Or Roots? No Information not available 09/28/2017 Do You Have Swollen Tongue? No [email or web address] Information not available 09/28/2017 Do You Present Social Anxiety Symptoms Such As Isolation Or Activities Of Independent Living? Yes [email or web address] Information not available 09/28/2017 Are There Any Household/ Environmental Risks Affecting Your Health? No [email or web address] Information not available 09/28/2017 Is There Any Family History Of Substance Use Such As Drugs Or Alcohol? No [email or web address] Information not available 12/02/2017 Any Family Mental Health History? No [email or web address] Information not available 12/02/2017 Do You Have History Of Mental Health Conditions? No [email or web address] Information n ot available 12/02/2017 1. Over The Past Two Weeks Have You Ever [place] Down, Depressed Or Hopeless? Yes Information not available 07/30/2014 1. Depressed Mood Most Of The Day, Neraly Everyday? Yes Information not available 10/02/2014 2. Markedly Diminished Interest Or Pleasure In Almost All Activities Most Of The Day, Nearly Everyday? Yes Information not available 07/30/2014 2. Over The Past Two Weeks Have You [place] No Pleasure Or Interest In Doing Things? [...] Information not available 10/02/2014 Smoking Assessment 09/28/2017 [email or web address] Inform ation not available 09/28/2017 Drinking Assessment 09/28/2017 [email or web address] Information not available 09/28/2017 Depression Screenin09/28/2017 Information not available 09/28/2017 Have You Ever [place] Like You Should Cut Down On Your Drinking?: No Information not available 07/08/2015 Have People Annoyed You By Criticizing Your Drinking?: No Information not available 07/08/2015 Have You Ever [place] Bad Or Guilty About Your Drinking?: No Information not available 07/08/2015 Have You Ever Had A Drink First Thing In The Morning To Steady Your Nerves Or To Get Rid Of A Hangover (eye Principal Scientist)?: No [email or web address] Information not available 12/02/2017 Sleep Screenin09/28/2017 [email or web address] Informat ion not available 09/28/2017 1. Do You Snore Or Have Been Told That You Snore?: Yes Information not available 07/30/2014 2. Do You Wake Up Choking Or Gasping?: Yes Information not available 07/30/2014 3. Excessive Daytime Sleepiness?: Yes Information not available 07/30/2014 Marital Status [email or web address] Informatio n not available 06/19/2014 What Was The Date Of Your Most Recent Tobacco Screening? 12/02/2017 Information not available 04/13/2019 How Many Children Do You Have? 2 [email or web address] Information not available 06/19/2014 Performs Monthly Self-breast Exam? Yes Information no t available 09/28/2017 Do You Use Protection During Sex? No Information not available 07/08/2015 What Is Your Relationship Status? [email or web address] Information not available 12/02/2017 Seat Belts Used Routinely Yes [email or web address] Information not available 09/28/2017 Are You Sexually Active? Yes Information not available 07/08/2015 Smoke Alarm In Home Yes Information not available 09/28/2017 At What Age Did You Start Smoking Tobacco? 0 Information not available 07/08/2015 How Much Tobacco Do You Smoke? No [email or web address] Information not available 06/19/2014 General Stress Level High Information not available 09/28/2017 Do You Feel Stressed (tense, Restless, Nervous, Or Anxious, Or Unable To Sleep At Night)? [id number] [email or web address] Information not available 12/02/2017 Do You Use Sunscreen Routinely? Yes Information not available 09/28/2017 How Many Years Have You Smoked Tobacco? 0 [email or web address] Information not available 12/02/2017 Sex: Unknown Functional Status Question Answer Note LastModified by Organizat ion Details LastModified Time Do you have difficulty walking or climbing stairs? Yes Information not available 07/30/2014 Do you have transportation difficulties? No Information not available 12/02/2017 Do you have difficulty doing errands alone? No Information not available 07/30/2014 Are you able to care for yourself? Yes Information n ot available 06/19/2014 Do you have difficulty dressing or bathing? No Information not available 07/30/2014 What is your exercise level? Occasional 2TIMES A WEEK [email or web address] Information not available 06/19/2014 Mental Status Question [...] Code Diagnosis Note 4796 Rachel Mello_C AM [address] [address] 06/19/2014 11:12:34 06/19/2014 13:36:32 Low back pain 486921681 Sciatica 83299572 Depressive disorder 81492223 Asthma 976771324 Migraine 34856023 8235 Rosalia Mello_C AM [address] [address] 07/30/2014 11:37:06 07/30/2014 12:57:43 Sciatica 41804920 Low back pain 773279642 Kidney disease 89420048 Migraine 12100191 Obesity 914303587 20125 Rosalia Mello_C AM [address] [address] 10/02/2014 09:49:55 10/02/2014 12:19:12 Kidney stone 14367493 Migraine 19082341 Dysphagia 80193297 22745 Riaz_C AM [address] [address] 12/04/2014 09:52:24 12/04/2014 11:33:08 Depressive disorder 20377782 Migraine 95091713 Kidney stone 83812851 Obesity 332960885 Diverticular disease 844098029 Gastritis 3039997 Esophagitis 13023720 Body mass index 30+ - obesity 133361209 Adult heal th examination 991512579 Petechiae of skin 970310282 Asthma 289955202 Lakisha Mello_C [address] [address] 01/01/2015 09:48:41 01/01/2015 12:23:25 Asthma 664241401 Upper resp iratory infection 03542774 Depressive disorder 72307904 Diverticular disease 496068067 Gastritis 3615018 Kidney stone 25709617 Low back pain 200976874 Obesity 881473025 Petechiae of skin 540084114 Sciatica 58558177 16811 Lakisha Mello_C [address] [address] 6 01/29/2015 09:59:17 01/29/2015 11:40:57 Migraine 86089342 Administra tion of tetanus vaccine 757968857 Sciatica 35376254 Petechiae of skin 125561426 Esophagitis 97771024 Gynecologi c examination 39068985 16206 Cornelia Shavongus Maxstephan_C [address] [address] 6 07/08/2015 09:46:55 07/08/2015 11:18:44 Asthma 293431751 J45.30 Low back pain 028254649 M54.5 Migraine 21935505 G43.90 9 Gastritis 8799003 K29.00 gi fu Allergic rhinitis 527258 04 J30.1 Depressive disorder 3548 9007 F32.9 85640 HOWIE CHAMBERS Maxstephan_C [address] [address] 07/30/2015 09:33:49 07/30/2015 10:35:26 Low back pain 566441197 M54.5 Migraine 58691659 G43.50 9 Pain in lower limb 85560 006 M79.605 M79.604 Depressive disorder 3548 9007 F33.41 Sciatica 85819098 M54.31 M54.32 Vitamin D deficiency 347 98111 E55.9 15437 Rosalia Ahsan Santanastephan_C [address] [address] 09/02/2015 09:40:40 09/02/2015 10:35:54 Acute pharyngitis 671616142 J02.9 J02.8 tonsilopha ryngitis Asthma 469492408 J45.30 Body mass index 30+ - obesity 197803504 Z68.35 58795 Yolanda Velazco [place] [address] 6 10/17/2015 13:09:45 10/17/2015 14:09:31 Body mass index 30+ - obesity 107484919 Z68.35 Obesity 061496500 E66.9 Vitamin D deficiency 347 46736 E55.9 Depressive disorder 3548 9007 F32.9 Migraine 89473191 G43.90 9 Allergic rhinitis 272992 04 J30.9 54913 Cornelia Kamryn Mello_C [place] [address] 6 12/30/2015 11:51:07 12/30/2015 13:02:02 Administration of diphtheria and tetanus vaccine 87329899 Z23 Chronic back pain 549176 002 G89.29 upper and lower back pain Body mass index 30+ - obesity 252811875 Z68.34 Dizziness 737434825 R42 99148 Cornelia Nails [address] [address] 03/25/2016 13:08:15 03/25/2016 14:34:04 Chronic back pain 666157479 G89.29 upper and lower back pain Depressive disorder 3548 9007 F32.9 Dizziness 359131871 R42 Hyperuricemia 47842685 E 79.0 Vitamin D deficiency 347 58246 E55.9 Hyperlipidemia 38607907 E78.5 Body mass index 30+ - obesity 511065495 Z68.34 Constipation 82705868 K5 9.00 87174 MD Jesu Salguero [address] [address] 06/29/2016 10:00:38 06/29/2016 10:46:31 Upper respiratory infection 13936150 J06.9 Arthritis/arthrosis 2741 02558 M19.90 Pure hypercholesterolemia 185533012 E78.0 Vitamin D deficiency 347 92038 E55.9 Cobalamin deficiency 190 240526 E53.8 Screening mammography 24 092913 Z12.31 Gastroesop hageal reflux disease 131838677 K21.9 69559 MD Jesu Salguero [address] [address] 07/21/2016 11:53:56 07/21/2016 12:41:20 Asthma 141918164 J45.909 Upper resp iratory infection 91527849 J06.9 Pain in throat 449164013 R07.0 Cough 62309320 R05 Pain of breast 02968079 N64.4 Chronic back pain 992165 002 G89.29 Body mass index 30+ - obesity 993873775 Z68.35 Migraine 11527947 G43.90 9 Acute sinusitis 44430699 J01.90 Polyp of colon 45649749 K63.5 84663 [facility] [address] [address] 08/25/2016 10:03:04 08/25/2016 11:29:34 Asthma 164665802 J45.909 Migraine 53151887 G43.90 9 Depressive disorder 3548 9007 F32.9 Abnormal c ervical Papanicolaou smear 379680952 R87.619 27435 MD Jesu Salguero [address] [address] 11/02/2016 15:08:24 11/02/2016 18:03:12 Chronic back pain 447637040 G89.29 Vitamin D deficiency 347 34741 E55.9 Migraine 41614539 G43.90 9 Gastroesop hageal reflux disease 009888023 K21.9 Asthma 040327907 J45.90 9 Low back pain 535589757 M54.5 Hypoglycemia 424075426 E 16.2 Menopausal flushing 1984 82561 N95.1 Abdominal pain 69412601 R10.9 Pure hypercholesterolemia 956122226 E78.00 Cobalamin deficiency 190 950495 E53.8 High gluco se level in blood 714911128 R73.9 62478 MD Jesu Salguero [address] [address] 11/16/2016 13:41:10 11/16/2016 14:51:46 Vitamin D deficiency 29722773 E55.9 Depressive disorder 3548 9007 F32.9 Asthma 344851038 J45.90 9 Migraine 78568276 G43.90 9 Gynecologi c examination 72234071 Z01.419 Mixed hyperlipidemia 267 334381 E78.2 START DIET AND EXERCISE Hypoglycemia 343944359 E 16.2 Obstructiv e sleep apnea syndrome 08590264 G47.33 85280 MD Jesu Salguero [address] [address] 6 01/19/2017 14:01:40 01/19/2017 14:41:45 Asthma 740291599 J45.909 Body mass index 30+ - obesity 753072352 Z68.36 Obstructiv e sleep apnea syndrome 52069027 G47.33 Reactive hypoglycemia 31 7006 E16.1 Mixed hyperlipidemia 267 397802 E78.2 START DIET AND EXERCISE 59[address] Italia Nails [address] [address] 03/19/2017 12:02:57 03/19/2017 12:44:00 Vitamin D deficiency 34032399 E55.9 Hyperlipidemia 94135392 E78.5 Body mass index 30+ - obesity 597592191 Z68.39 Hyperglycemia 26650050 R 73.9 Migraine 22324975 G43.90 9 Obstructiv e sleep apnea syndrome 08058855 G47.33 Pure hypercholesterolemia 403045290 E78.00 43951 MD Jesu Salguero [address] [place] [address] 03/19/2017 15:56:00 03/19/2017 15:56:09 28109 Italia Nails [address] [address] 04/02/2017 11:54:03 04/02/2017 13:39:02 Hyperlipidemia 93727384 E78.5 Diabetes mellitus 938975 09 E11.9 Body mass index 30+ - obesity 434827040 Z68.39 19959 Italia Nails [address] [address] 6 04/19/2017 09:43:40 04/19/2017 10:32:09 Hyperlipidemia 77141168 E78.5 Asthma 198057736 J45.90 9 Diabetes mellitus 340305 09 E11.9 Cough 66887377 R05 Acute pharyngitis 689716 003 J02.9 77967 Italia Nails AM [address] [address] 08/05/2017 09:31:16 08/05/2017 10:50:21 Asthma 567710464 J45.909 Migraine 30831236 G43.90 9 Obesity 518555595 E66.9 Diabetes mellitus 593894 09 E11.9 Vitamin D deficiency 347 24270 E55.9 Hyperlipidemia 34549312 E78.5 Gastroesop hageal reflux disease 115154680 K21.9 Active or passive immunization 213394210 Z23 Uncontroll ed type 2 diabetes mellitus 264866091 E11.65 Cobalamin deficiency 190 459566 E53.8 19170 Italia Nails [facility] [address] [place] [address] 08/09/2017 11:19:39 08/09/2017 11:19:50 437293 MD Jesu Salguero [address] [address] 09/28/2017 09:47:56 09/28/2017 11:15:07 Asthma 217609990 J45.909 I discussed with the patient the [...] the Nebulizer Treatment was performed. Depressive disorder 6248 9007 F32.9 Migraine without aura 56 362516 G43.009 Body mass index 30+ - obesity 189944160 Z68.35 Low back pain 373683439 M54.5 mild , remains the same as before Active or passive immunization 956747764 Z23 Hormone re placement therapy 085068924 Z79.890 Vitamin D deficiency 347 69239 E55.9 Pure hypercholesterolemia 449882316 E78.00 Diabetes mellitus 312821 09 E11.9 Diet and exercise , Last HbA1c 6.7 Obesity 940336244 E66.9 010655 Italia Nails AM [address] [place] [address] 12/02/2017 11:17:01 12/02/2017 13:04:22 Asthma 727310541 J45.909 Depressive disorder 3548 9007 F33.8 stable per pt Migraine 00540167 G43.90 9 Adult heal th examination 511312341 Z00.00 Body mass index 30+ - obesity 145565457 Z68.34 Obstructiv e sleep apnea syndrome 05948057 G47.33 Acute pharyngitis 988421 003 J02.9 Prediabetes 409558424 R7 3.03 483093 Italia Washburn[address] [place] [address] 12/02/2017 18:01:44 12/02/2017 18:25:46 Health Concerns Section Related Observation LastModified by Organization Detai ls LastModified Time None Recorded Concern Status LastModified by Organization Details LastModified Time None Recorded Advance Directives Directive None Recorded Payers Encounter Date Sequence Insurance Name Policy Number Policy Fernandes Covered Member ID Fernandes Member ID Guarantor Name 08/05/2017 1 [place] [facility] (MEDICAID HMO) [id number] Regina Larson [id number] Regina Neo 08/05/2017 1 [place] [facility] (MEDICAID HMO) [id number] Regina Larson [id number] Reginaaviva Larson 09/28/2017 1 [place] [facility] (MEDICAID HMO) [id number] Regina Larson [id number] Reginaaviva Larson 12/02/2017 1 [place] [facility] (MEDICAID HMO) 4040 Regina Larson [id number] Regina Larson 12/02/2017 1 [facility] [facility] (MEDICAID HMO) 4040 Regina Larson [id number] Regina Larson Notes Date Note Type [...] NO NEW PROBLEMS OR COMPLAINTS. Italia schafer, [facility] 08/05/2017 10:58:21 09/28/2017 text/html Asthma F/UReport ed bypatient.Severity:ab le to sleep during episode; does not interfere with daily activities Context:improving Associated Symptoms:no fever; no fatigue; no irritability; no cough; normal appetite; no changes in productivity; no shortness of breath pt is active and alert, pt went to see pressing machine operator who recommend an commonwealth attorney referral. Jason Mello MD [address], [place], [address], [facility] 09/28/2017 18:13:23 12/02/2017 text/html [...]
== END 2025-01-05 08:10 | disposition home or self-care (01) ==
LOC: HO.HOSX 08:09
DX: M79.641 Pain in right hand (principal); R20.0 Anesthesia of skin; R20.2 Paresthesia of skin
CPT/HCPCS: 73130; 99212

== ENCOUNTER 2025-01-05 13:18 | Outpatient (AMB) | payer MEDICAID, SELFPAY ==
--- OUTSIDE RECORDS SUMMARY | 2025-01-05 13:46 | XMS_ITS | Clinical Summary ---
Author Organization [facility] Address [address] [place] [address] Care Team Providers Care Closer On Name Role Phone Unavailable Primary Care Provider [...] severity, unspecified whether complicated, unspecified whether persistent ([facility]) Inhale 2 Puffs into the lungs [...] Treatment Not on file [facility]
--- OUTSIDE RECORDS SUMMARY | 2025-01-05 13:46 | XMS_ITS | Encounter Summary ---
Author Organization [employer] Address [address] [facility] 7t [place] [address] Care Team Providers Care Brick Carrier Name Role Phone Simona Ribeiro MD Primary Care Provide r Reason for Visit * Reason Comments Med Refill Encounter Details Date Type Department Care Team (Late Contact Info) Description 12/22/2022 Refill [facility] [address] [place] [address] [phone] Rishabh Mcnally MD [address] [place] [address] [phone] Vaginal candidiasis Social History Tobacco Use Types [...] Description 02/05/2025 2:00 PM EDT Office Visit [facility] [address] [place] [address] Simona Ribeiro MD [address] [place] [address] 03/07/2025 9:00 AM EDT Office Visit [facility] [address] [place] [address] Nevin Cabezas documented as of this encounter Visit Diagnoses Diagnosis Vaginal candidiasis Candidiasis of vulva and vagina documented in this encounter Care Teams Brick Carrier Relationship Specialty Start Date End Date Simona Ribeiro MD [address] [place] [address] PCP - General Family Medicine 07/21/19 [employer] 02/22/24 documented as of this encounter
--- OUTSIDE RECORDS SUMMARY | 2025-01-05 13:46 | XMS_ITS | Clinical Summary ---
Author Organization [employer] Address [address] [facility] [address] [place] [address] Care Team Providers Care Inhalation Therapy Teacher Name Role Phone Simona Ribeiro MD Primary Care Provide r Allergies Active Allergy Reactions Criticality Noted Date Comments Aspirin Hives,Swelling 07/12/2018 Only to ASA, other NSAIDs is ok. Allergic reaction occurred when pt was 12 years old and occurred in [place]. Penicillin G 12/06/2023 Penicillins Anaphylaxis,Hives High 07/12/2018 [...] g 023 Active Blood Glucose Monitoring Suppl (Sensity SystemsStrimidi Lite) w/Device kit 1 each in the [...] 024 Active ergocalciferol (Vitamin D-2) 1.25 MG (61855 UT) capsuleIndicatio ns:Vitamin D deficiency Take 1 [...] chronic allergic conjunctivitis 11/01/2023 History of dental sikhism 10/06/2023 Missing teeth, acquired 09/14/2023 Acute bacterial [...] Type Department Care Team Description 12/28/2024 Telephone [facility] [address] [place] [address] Simona Ribeiro MD Durable Medical Equipment (Nebulizer Supplies) 12/26/2024 Telephone [facility] [address] [place] [address] Simona Ribeiro MD Durable Medical Equipment 12/26/2024 Outside Procedure [facility] [address] [place] [address] Jessika Mcclure, OD Presbyopia of both eyes (Primary Dx) 12/25/2024 9:15 AM EDT Office Visit [facility] [address] [place] [address] Jessika Mcclure, OD Regular astigmatism of both eyes (Primary Dx) 12/21/2024 3:30 PM EDT Telemedicine [facility] [address] [place] [address] Simona Ribeiro MD Class 1 obesity due to excess calories with serious comorbidity and body mass index (BMI) of 31.0 to 31.9 in adult (Primary Dx); Mild intermittent asthma without complication; Right hand pain 12/21/2024 Travel 12/01/2024 Population Health Risk Score [facility] ([facility] Department [address] [address] Provider, Population Health Generic 11/22/2024 Telephone [facility] [address] [place] [address] Simona Ribeiro MD 11/20/2024 9:30 AM EST Office Visit [facility] [address] [place] [address] Ren, Jessika, OD Diabetes type 2, 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) (Primary Dx); Rosacea; Dry eyes; Regular astigmatism of both eyes 11/20/2024 Travel 11/02/2024 1:45 PM EST Office Visit [facility] [address] [place] [address] Simona Ribeiro MD Migraine without aura, not [...] 31.9 in adult 11/02/2024 Travel 10/30/2024 Refill [facility] [address] [place] [address] Simona Ribeiro MD Prediabetes 10/27/2024 11:15 AM EST Office Visit [facility] [address] [place] [address] Kezia Patton MD Androgenic alopecia (Primary Dx) 10/27/2024 Travel 10/25/2024 Telephone [facility] ADULT DENTAL [address] [place] [address] Halina Reeves 10/20/2024 Patient Outreach [address] [address] Simona Ribeiro MD Pre-visit Planning (SDOH screening [...] Description 02/05/2025 2:00 PM EDT Office Visit [facility] [address] [place] [address] Simona Ribeiro MD [address] [place] [address] 03/07/2025 9:00 AM EDT Office Visit [facility] ADULT DENTAL [address] [place] [address] Nevin Cabezas Health Maintenance Due Date Last [...] PM EST Narrative 11/02/2024 2:54 PM EST ?[facility] ?[address] ?[place] [address] ?XRay Report ? Signed ? Patient: Larsno Grady,Regina ?MR#: ?? [id number] ? : 1980 ?Acct:[id number] ? Age/Sex: 44 / F ?ADM Date: 02/13/25 ? Loc: HO.HHCX ? Attending Dr: Simona Gaston MD ? Ordering Physician: Simona Ribeiro MD ?? Date of Service: 11/02/24 ?? Procedure(s): XR hand RT min 3V ?? Accession Number(s): [id number] ? cc: Simona Ribeiro MD ? EXAMINATION: [...] DD/ 1429 ? TD/TT: 11/02/24 1434 ? Belt Splicer: ? Procedure Note Felice, Image - 11/02/[address] [address] XRay Report Signed Patient: Regina Willson#: [id number] : 1980Acct:[id number] Age/Sex: 44 / FADM Date: 11/02/24 Loc: HO.HHCX Attending Dr: Simona Gaston MD Ordering Physician: Simona Ribeiro MD Date of Service: 11/02/24 Procedure(s): XR hand RT min 3V Accession Number(s): [id number] cc: Simona Ribeiro MD EXAMINATION: XR HAND, [...] 11/02/24 1452 DD/ 1429 TD/TT: 11/02/24 1434 Belt Splicer: us Simona Gaston MD IMG XR PROCEDURES Fin al Result * BI MR Breast w and w/o Contrast Bilateral (09/01/2024 9:35 AM EST) Anatomical Region Laterality Modality Breast Bilateral Magnetic Resonan ce 09/01/2024 9:35 AM EST Narrative 09/24/2024 2:58 PM EST ? [facility] ?[address] ?[place] [address] ? Magnetic Resonance Report ? Signed ? Patient: Regina Willson ?MR#: ?? [id number] ? : 1980 ?Acct:[id number] ? Age/Sex: 44 / F ?ADM Date: 09/01/24 ? Loc: HO.MRI ? Attending Dr: Luis Carlos Adrian MD ? Ordering Physician: Luis Carlos Adrian MD ?? Date of Service: 09/01/24 ?? Procedure(s): MR breast BI wo/w con ?? Accession Number(s): [id number] ? cc: Simona Ribeiro MD; Luis Carlos [...] DD/ 0935 ? TD/TT: 09/01/24 1015 ? Belt Splicer: ? Procedure Note Felice, Image - 09/24/[address] [address] Magnetic Resonance Report Signed Patient: Regina WillsonMR#: [id number] : 1980Acct:[id number] Age/Sex: 44 / FADM Date: 09/01/24 Loc: HO.MRI Attending Dr: Luis Carlos Adrian MD Ordering Physician: Luis Carlos Adrian MD Date of Service: 09/01/24 Procedure(s): MR breast BI wo/w con Accession Number(s): [id number] cc: Simona Ribeiro MD; Luis Carlos Adrian [...] by: Mya Goetz DO 09/24/2024 02:55 PM [facility] Dictated By: Mya Goetz DO Signed By: <Electronically signed by Mya Goetz DO in OV> 09/24/24 1455 DD/ 0935 TD/TT: 09/01/24 1015 Belt Splicer: us [facility] External Provider IMG MRI PROCEDURES Edited Result - Final * Hemoglobin A1c (02/09/2024 9:24 AM EDT) Hemoglobin A1c 5.7 <6.0 % [facility] Comment:Hemoglobin A1C Refer ence Range Adults: 4.8 - 6.0 % Non diabetic: < 6.0 % Goal: < 7.0 %Additional Action Suggested: > 8.0 %Note: Hemoglobin A1c results are invalid for patients with abnormal amounts of HbF. Blood transfusions may impact the HbA1c concentration in the patient sample. Estimated Average Glucose 117 mg/dL [facility] Comment:eAG = Estimated ave rage glucose which is %A1C expressed asaverage glucose, using the formula of the A9P-UhryxqmUrfkxxi Glucose study (ADAG), Diabetes Care, Vol.31,#8,Apr. 2007 02/09/2024 9:24 AM EDT 02/09/2024 9:24 AM EDT us Generic External Data Provider LAB BLOOD ORDERAB LES Final Result Performing Organization Address [facility] Co de Phone Number [facility] [address] [place] [phone] * (ABNORMAL) Lipid Panel, Standard (01/31/2024 10:50 AM EDT) Triglycerides 119 <150 mg/dL [facility] Comment:Desirable Triglyceri de: less than 150 mg/dLBorderline High Triglyceride 150-199 mg/dLHigh Triglyceride: 200-499 mg/dLVery High Triglyceride: greater than or equal to 5OO mg/dL Cholesterol 265(H) <200 mg/dL [facility] Comment:Desirable Cholestero l: less than 200 mg/dLBorderline High Cholesterol: 200-239 mg/dLHigh Cholesterol: greater than 239 mg/dL LDL Cholesterol Calculated 178(H) <100 mg/dL [facility] Comment:Desirable LDL: less than 100 mg/dLNear Optimal/Above Optimal LDL: 110- 129 mg/dLBorderline High LDL: 130-159 mg/dLHigh LDL: 160-189 mg/dLVery High LDL: greater than or equal to 190 mg/dL HDL Cholesterol 64 >40 mg/dL [facility] Comment:Desirable HDL: great er than 40 mg/dL Note: This HDL assay may give artificially low results in patients with liver disease. Blood Venous blood specimen / Unknown 01/31/2024 10:50 AM EDT 01/31/2024 1:10 PM EDT us Simona Gaston MD LAB BLOOD ORDERABLES Final Result Performing Organization Address City/[facility]/ZIP Co de Phone Number [facility] [address] [place] [address] [phone] HPV E6/E7 RFLX DANNY 16 18/45 (08/18/2021 10:17 AM EST) HPV 16 RNA [facility] HPV 18/45 RNA [facility] HPV E6 E7 ADD [facility] HPV mRNA E6/E7 rflx Not Detected Not Detected [facility] Comment: Methodology: Press Operator-Mediated Amplification This assay detects E6/E7 viral messenger RNA (mRNA) from 14 high-risk HPV types (16,18,31,33,35,39,45,51,52,56,58,59,66,68). The analytical performance characteristics of this assay have been determined by [employer]. The modifications have not been cleared or approved by the FDA. This assay has been validated pursuant to the CLIA regulations and is used for clinical purposes. For additional information, please refer to http://education.Medio[employer]/faq/ELL113b2 (This link if provided for information/ educational purposes only.) THIS TEST WAS PERFORMED AT: [facility] [address] [place] [address] [address] [place], [place] ??[phone] JASWINDER PAUL MD 08/18/2021 10:1 7 AM EST Ramesh Maki MD HISTORICAL/NON ORDERABLE LABS Fi nal Result [facility] [address] * Hm Pap Smear (08/18/2021 12:00 AM EST) Historical Provider HEALTH MAINTENANCE Final Result from Last 3 Months or Most Recently Relevant to Health Maintenance [facility] AD[place] Care Teams Inhalation Therapy Teacher Relationship Specialty Start Date End Date Simona Ribeiro MD [address] [place] [phone] PCP - General Family Medicine 07/21/19 [employer] 02/22/24
--- OUTSIDE RECORDS SUMMARY | 2025-01-05 13:46 | XMS_ITS | Clinical Summary ---
Author Organization [facility] it Address [address] [place] [address] Care Team Providers Care Pearler Name Role Phone Cecilia Zee FRONT LINE LEADER Primary Care Provider [phone] Surgical History Surgery Date Site/Laterality Comments OVARIAN CYST REMOVAL PROCEDURE: IA OVARIAN CYSTECTOMY UNI/BI HYSTERECTOMY PROCEDURE: HISTORICAL HYSTERECTOMY BREAST REDUCTION PROCEDURE: IA BREAST REDUCTION OTHER SURGICAL HISTORY 2007 PROCEDURE: IA PUNCTURE ASPIRATION CYST BREAST EACH ADDL CYST; [...] AM EDT Narrative 07/09/2019 4:44 PM EDT [facility] Diagnostic Imaging Department [address] [place], [place] [id number] Patient: ??ROBERTO ELIZALDE ?/Age/Sex: 1980 - 39 - F Unit#: ??[id number] ? Location/Status: ??SPDIMAM/PRE CLI ? Mnemonic/Ordering Site: ??DIGSC/SPMAM Ordering Physician: ??REI DELACRUZ CNM [facility] Screening Digital - 07/08/19853 EXAM: [facility] Screening Digital EXAM DATE AND TIME: 07/08/2019 9:20 AM HISTORY: ??Screening. Reduction mammoplasty in 2007. Paternal grandmother had breast carcinoma. COMPARISON: ??Previous mammograms done in [place] are not available per the patient. TECHNIQUE: CC and MLO views of both breasts were obtained using full field digital mammography. Bilateral digital breast tomosynthesis was performed in the MLO projection. Computer aided detection with the Chatalog 7.2-H was employed. TISSUE DENSITY: a. The [...] Routine screening mammogram BILATERAL in 1 year. 85975, 47045 3342F, 7025F Dictating Physician: ??ALIS POWER MD Electronically Signed by: ??ALIS POWER MD Dic Date/Time: ??07/09/191642 Sign date/Time: ??07/09/191643 Procedure Note Alis Power - 09/08/2022 [facility] Diagnostic Imaging Department [address] [place] [id number] Patient: CARMELINA ELIZALDENATE HernandezO.B./Age/Sex: 1980 - 39 - F Unit#: [id number] Location/Status: SPDIMAM/PRE CLI Mnemonic/Ordering Site: [facility] Ordering Physician: REI DELACRUZ CNM [facility] Screening Digital - 07/08/19 - 0854 EXAM: [facility] Screening Digital EXAM DATE AND TIME: 07/08/2019 9:20 AM HISTORY: Screening. Reduction mammoplasty in 2007. Paternal grandmotherhad breast carcinoma. COMPARISON: Previous mammograms done in [place] are not available perthe patient. TECHNIQUE: CC and MLO views of both breasts were obtained using fullfield digital mammography. Bilateral digital breast tomosynthesis was performedin the MLO projection. Computer aided detection with the Chatalog 7.2-Good[employer]as employed. TISSUE DENSITY: a. The breasts are [...] Routine screening mammogram BILATERAL in 1 year. 82828, 61349 3342F, 7025F Dictating Physician: ALIS POWER MD Electronically Signed by: ALIS POWER MD Dic Date/Time: 07/09/19 1643 Sign date/Time: 07/09/194 Rei Delacruz CNM IMG BI PROCEDURES Final Resul t * Pap smear (07/06/2019) 07/06/2019 Narrative HISTORICAL TESTING LAB RESULTING AGENCY - 07/10/2019 1:05 PM EDT [id number] THINPREP PAP, IMAGED: NEGATIVE FOR SQUAMOUS INTRAEPITHELIAL [...] Recently Relevant to Health Maintenance Care Teams Pearler Relationship Specialty Start Date End Date Cecilia Zee FNP [address] [place] [phone] PCP - General Internal Medicine 04/27/19
--- OUTSIDE RECORDS SUMMARY | 2025-01-05 13:46 | XMS_ITS | Encounter Summary ---
Author Organization [email or web address] Address [address] [facility] 7t [place] [address] Care Team Providers Care Fruit Express Agent Name Role Phone Simona Ribeiro MD Primary Care Provide r Reason for Visit * Reason Onset Date Comments Home Care Services 12/07/2022 I called the pt regarding a Physician Summary Form, from [employer]. She stated that she does not [...] (Late st Contact Info) Description 12/07/[address] [facility] MEDICINE [address] [place] [address] Simona Ribeiro MD [address] [place], [place] [phone] Home Care Services (I called the pt regarding a Physician Summary Form, from [employer]. She stated that she does not [...] [facility] [address] [place] [address] Simona Ribeiro MD [address] [place] [address] 03/07/2025 9:00 AM EDT Office Visit [facility] ADULT DENTAL [address] [place] [address] Nevin Cabezas documented as of this encounter Visit Diagnoses Not on filedocumented in this encounter Care Teams Fruit Express Agent Relationship Specialty Start Date End Date Simona Ribeiro MD [address] [place] [address] PCP - General Family Medicine 07/21/19 [email or web address] 02/22/24 documented as of this encounter
--- NOTE | 2025-01-05 13:47 | MHC.OFFVIS ---
Vital Signs 01/05/25 13:50 Height 5 ft 2 in Weight 178 lb BMI 32.6 Handedness Left Intake Visit Reasons: New prob-RT hand pain Intake Note: Regina is a 44 year old left hand dominant female who presents today for a new problem visit for right hand pain. Patient reports her right hand has been severely numb and tingling daily now, mainly the 1st and 2nd digits. At night her symptoms worsen causing her to be unable to get a full night of rest. She expresses difficulty with gripping, grasping, and lifting due to an exacerbation of pain. She says the base of her thumb and palm occasionally turns purple and swells. Has tried OTC medications and braces for relief however she has not received any. Sewage Reticulation Drafting Officer Required: Yes Sewage Reticulation Drafting Officer Language: Pilot Instructor Name: [id number] Allergies Penicillins Allergy (Severe, Verified 01/05/25 13:54) Anaphylaxis aspirin Allergy (Intermediate, Verified 01/05/25 13:54) Rash seafood Allergy (Intermediate, Verified 01/05/25 13:54) Anaphylaxis, rash HPI HPI New prob-RT hand pain: Details: Regina is a 44 year old left hand dominant female who presents today for a new problem visit for right hand pain. Patient reports her right hand has been severely numb and tingling daily now, mainly the 1st and 2nd digits. At night her symptoms worsen causing her to be unable to get a full night of rest. She expresses difficulty with gripping, grasping, and lifting due to an exacerbation of pain. She says the base of her thumb and palm occasionally turns purple and swells. Has tried OTC medications and braces for relief however she has not received any. [facility] Medical History COVID-19 vaccine series completed BMI 34.0-34.9,adult BMI 39.0-39.9,adult Insomnia Seizures DJD (degenerative joint disease) Stress incontinence GERD (gastroesophageal reflux disease) Hyperlipidemia Sleep apnea with use of continuous positive airway pressure (CPAP) Non-insulin dependent type 2 diabetes mellitus Obesity Well woman exam Ovarian low malignant potential tumor Umbilical hernia Migraine Asthma Morbid obesity Pannus, abdominal Surgical History Hx of tonsillectomy (12/22/23) Hx laparoscopic cholecystectomy S/P laparoscopic sleeve gastrectomy Hx of tubal ligation History of hysterectomy History of bilateral breast reduction surgery Family History Father History of prostate cancer Maternal Aunt History of breast cancer Mother Hypertension Hyperlipidemia Brother Thyroid condition Hypertension Brother No problems noted. Son No problems noted. Daughter No problems noted. Social History Are you a primary care transition coordinator to a significant other at home: No Do you presently have visiting nurse or other home services: No Alcohol intake: never Comment: counts correct Patient Tobacco Use Status: Never used Tobacco service: No Female Reproductive History Menstrual Age of Menarche: 11 Review of Systems Const All systems reviewed & are unremarkable except as noted in HPI and below Physical Exam Vital Signs: BMI result Body Mass Index 32.6 Extrem Other: Neuro: Diminished sensation in the median nerve distribution of the right hand in the office today Normal sensation of the ring and small fingers No thenar or intrinsic wasting. Good APB muscle firing and good finger cross. Vascular: Capillary refill brisk. ROM: Patient can make a fist and extend all their digits. Skin: No lacerations or abrasions noted. General: No ecchymosis. No erythema or evidence of infection. Assessment & Plan Assessment & Plan (1) Numbness and tingling in right hand: Code(s): R20.0 - Anesthesia of skin; R20.2 - Paresthesia of skin Category: Medical Plan 1. Right hand pain, numbness, tingling Symptoms constant, daily, worse at night Patient is educated about this condition Patient is educated about the typical treatment course EMG and nerve conduction study ordered to assess the health of the nerves of the right upper extremity Follow-up after EMG and nerve conduction study for results review and discussion of further treatment options if indicated Orders: Orders NE electromyogram (EMG) 01/05/25 R20.0 - Anesthesia of skin, R20.2 - Paresthesia of skin XR hand RT min 3V 01/05/25 M79.641 - Pain in right hand NE nerve conduction velocity 01/05/25 R20.0 - Anesthesia of skin, R20.2 - Paresthesia of skin Coding Level of Care Code New Pt Level 3 (17681) Diagnoses Numbness and tingling in right hand R20.0; R20.2
--- OUTSIDE RECORDS SUMMARY | 2025-01-05 13:47 | XMS_ITS | Encounter Summary ---
Author Organization [employer] Address [address] [facility] 7t [place] [address] Care Team Providers Care Ladle Patcher Name Role Phone Simona Ribeiro MD Primary Care Provide r Encounter Details Date Type Department Care Team (Late Contact Info) Description 06/14/[address] [facility] [address] [place], [place] [phone] Nemo Patel Social History Tobacco Use Types [...] Description 02/05/2025 2:00 PM EDT Office Visit [facility] [address] [place], [place] [phone] Simona Ribeiro MD [address] [place], [place] [phone] 03/07/2025 9:00 AM EDT Office Visit [facility] ADULT DENTAL [address] [place], [place] [phone] Nevin Cabezas documented as of this encounter Procedures Procedure Name Priority Date/Time Associated Diagnosis Comments HM PAP/HPV Routine 08/18/2021 12:00 AM EST documented in this encounter Results * Hm Pap Smear (08/18/2021 12:00 AM EST) us Historical Provider HEALTH MAINTENANCE Final Result documented in this encounter Visit Diagnoses Not on filedocumented in this encounter Care Teams Ladle Patcher Relationship Specialty Start Date End Date Simona Ribeiro MD [address] [place] [phone] PCP - General Family Medicine 07/21/19 [employer] 02/22/24 documented as of this encounter
--- OUTSIDE RECORDS SUMMARY | 2025-01-05 13:47 | XMS_ITS | Encounter Summary ---
Author Organization [employer] Address [address] [facility] 7t [place] [address] Care Team Providers Care Industrial Paramedic Name Role Phone Simona Ribeiro MD Primary Care Provide r Encounter Details Date Type Department Care Team (Latest Contact Info) Description 10/04/2019 Abstract [facility] CONVERSIONS Dental, Provider, DDS Social History Tobacco [...] Description 02/05/2025 2:00 PM EDT Office Visit [facility] MEDICINE [address] [place] [address] Simona Ribeiro MD [address] [place] [address] 03/07/2025 9:00 AM EDT Office Visit [facility] ADULT DENTAL [address] [place] [address] Nevin Cabezas documented as of this encounter Visit Diagnoses Not on filedocumented in this encounter Care Teams Industrial Paramedic Relationship Specialty Start Date End Date Simona Ribeiro MD [address] [place] [phone] PCP - General Family Medicine 11/1/19 [employer] 02/22/24 documented as of this encounter
--- OUTSIDE RECORDS SUMMARY | 2025-01-05 13:47 | XMS_ITS | Encounter Summary ---
Author Organization [employer] Address [address] [facility] [address] 7t [place] [address] Care Team Providers Care Machine Biller Name Role Phone Simona Ribeiro MD Primary Care Provide r Encounter Details Date Type Department Care Team ([facility] Contact Info) Description 09/01/2022 Telephone [facility] [address] [place] [address] Hope Garcia RN Social History Tobacco Use [...] Upcoming Encounters Date Type Department Care Team ([facility] Contact Info) Description 02/05/2025 2:00 PM EDT Office Visit [facility] MEDICINE [address] [place] [address] Simona Ribeiro MD [address] [place] [address] 03/07/2025 9:00 AM EDT Office Visit [facility] ADULT DENTAL [address] [place] [address] Nevin Cabezas documented as of this encounter Visit Diagnoses Not on filedocumented in this encounter Care Teams Machine Biller Relationship Specialty Start Date End Date Simona Ribeiro MD [address] [place] [address] PCP - General Family Medicine 07/21/19 [employer] 02/22/24 documented as of this encounter
[2025-01-05 13:50] VITALS: BMI 32.6
== END 2025-01-05 14:17 | disposition home or self-care (01) ==
LOC: HO.HOS 13:19
DX: M79.641 Pain in right hand (principal); R20.0 Anesthesia of skin; R20.2 Paresthesia of skin
CPT/HCPCS: 99203

== ENCOUNTER → 2025-01-05 13:27 | Outpatient (BNV) | payer MEDICAID, SELFPAY | PROVIDERS: Visit Provider Radiology Diagnostic Radiology | DX: M79.641 Pain in right hand (principal) | CPT/HCPCS: 73130 ==

== ENCOUNTER 2025-01-19 13:33 | Outpatient (REF) | payer MEDICAID, SELFPAY ==
--- OUTSIDE RECORDS SUMMARY | 2025-01-19 13:49 | XMS_ITS | Encounter Summary ---
Author Organization [employer] Address [address] [facility] 7t [place] [address] Care Team Providers Care Medical Stenographer Name Role Phone Simona Ribeiro MD Primary Care Provide r Reason for Visit * Reason Comments Med Refill Encounter Details Date Type Department Care Team (Late Contact Info) Description 12/22/2022 Refill [facility] MEDICINE [address] [place] [phone] Rishabh Mcnally MD [address] [place] [address] [phone] Vaginal candidiasis Social History Tobacco Use Types [...] Description 02/05/2025 2:00 PM EDT Office Visit [facility] MEDICINE [address] [place] [address] Simona Ribeiro MD [address] [place] [address] 03/07/2025 9:00 AM EDT Office Visit [facility] ADULT DENTAL [address] [place] [address] Nevin Cabezas documented as of this encounter Visit Diagnoses Diagnosis Vaginal candidiasis Candidiasis of vulva and vagina documented in this encounter Care Teams Medical Stenographer Relationship Specialty Start Date End Date Simona Ribeiro MD [address] [place] [address] PCP - General Family Medicine 07/21/19 [email or web address] 02/22/24 documented as of this encounter
--- OUTSIDE RECORDS SUMMARY | 2025-01-19 13:49 | XMS_ITS | Encounter Summary ---
Author Organization [employer] Address [address] [facility] [address] 7[address] [place] [address] Care Team Providers Care Cath Lab Manager Name Role Phone Simona Ribeiro MD Primary Care Provide r Reason for Visit * Reason Comments Vaginal Itching Urinary Frequency Encounter Details Date Type Department Care Team (Late st Contact Info) Description 01/19/2025 8:40 AM EDT Office Visit [facility] [place] [address] [place], [place] [phone] Acute cystitis without hematuria (Primary Dx); Bacterial vaginosis Social History Tobacco Use Types Packs/Day Years [...] is your housing situation today? I have trinitygisselle rahman 01/20/[address] you [...] Sign Reading Time Taken Comments Blood Pressure 107/74 01/19/2025 8:41 AM EDT Pulse 82 01/19/2025 8:41 AM EDT Temperature 36.4 ??C (97.6 ??F) 01/19/2025 8:41 AM ED T Respiratory Rate 18 01/19/2025 8:41 AM EDT Oxygen Saturation 100% 01/19/2025 8:41 AM EDT Inhaled Oxygen Concentration - - Weight 78.9 kg (174 lb) 01/19/2025 8:41 AM EDT Height - - Body Mass Index 30.82 11/02/2024 1:19 PM EST documented in this encounter Plan of Treatment Upcoming Encounters Date Type Department Care Team (Late st Contact Info) Description 02/05/2025 2:00 PM EDT Office Visit [facility] [address] [place], [place] [phone] Simona Ribeiro MD [address] [place] [address] 03/07/2025 9:00 AM EDT Office Visit [facility] ADULT DENTAL [address] [place] [address] Nevin Cabezas Scheduled Orders Name Type Priority Associated Diagnoses Orde r Schedule Chlamydia/N. Gonorrhoeae RNA, TMA, Urogenitial Microbiology Routine Bacterial vaginosis Ordered: 01/19/2025 Bacterial Vaginosis Panel Microbiology Routine Bacterial vaginosis Ordered: 01/19/2025 Culture, Urine, Routine Microbiology Routine Bacterial vaginosis Ordered: 01/19/2025 documented as of this encounter Procedures Procedure Name Priority Date/Time Associated Diagnosis Comments POCT URINALYSIS DIPSTICK Routine 01/19/2025 8:50 AM EDT Bacterial vaginosis documented in this encounter Results * (ABNORMAL) POCT urinalysis dipstick manually resulted (01/19/2025 8:50 AM EDT) Color, UA Yellow Clarity, UA Clear Glucose, UA Few 15 Comment:100 mg/dL Bilirubin, UA Moderate Ketones, UA Positive Comment:Trace Spec Grav, UA 1.015 Blood, UA Negative Negative, None Detected pH, UA 5.0 Protein, UA Few 15 Comment:100 mg/dL Urobilinogen, UA 2.0 Leukocytes, UA Many(A) Negative, Rare, Trace Comment:Large Nitrite, UA Positive(A) Negative, None Detected Urine 01/19/2025 8:50 AM EDT Rishabh Mcnally MD POINT OF CARE TEST ENTER/EDIT OR DERABLES Final Result documented in this encounter Visit Diagnoses Diagnosis Acute cystitis without hematuria- Primary Bacterial vaginosis Unspecified vaginitis and vulvovaginitis documented in this encounter Additional Health Concerns Assessment Noted Time PHQ-9 Depression Total Score: 22 025 1:30 PM EST documented as of this encounter Care Teams Cath Lab Manager Relationship Specialty Start Date End Date Simona Ribeiro MD [address] [place] [phone] PCP - General Family Medicine 07/21/19 [employer] 02/22/24 documented as of this encounter
--- OUTSIDE RECORDS SUMMARY | 2025-01-19 13:49 | XMS_ITS | Data Portability ---
Author Organization [facility] Medical Severo Titus madsen, [employer] Address [address] [place] [address] Assessment Encounter Date Assessment Date Assessment LastModified [...] migraine. - Pt mentions need referral for contact agent to perform bariatric surgery---- EKG normal. - Pt mentions she had hysterectomy with ooforectomy on 2011 and need hormone replacement at this time for that reason is requesting a ice cream server referral. Lab results. - Vitamin D - UA -- blood small. Medication list was reviewed, and medication management was discussed. Changes are detailed in the Plan section below. Additional testing or evaluation is detailed in the Plan section below. Instructions regarding follow up were discussed and accepted. [email or web address] Not available 09/28/2017 18:13:18 12/02/2017 12/02/2017 Assessment: [...] microalbum in/creatin ine, mass ratio, urine [facility], [address], [place], [address], 7 06:12:16 CBC 2016 TERRY Not available 7 16:31:20 lipid panel, serum 2016 TERRY Not available 7 16:31:21 urinalysis , complete 2016 [facility], [address], [place], [address], 7 06:12:15 vitamin B12, serum 2016 TERRY Not available 7 20:31:44 folate, serum 2016 TERRY Not available 7 20:31:45 magnesium, serum or plasma 2016 TERRY Not available 7 16:31:[address] referral 2017 018 [email or web address] Not available 8 09:30:27 endocrinol ogy referral 2017 018 [email or web address] Cayetano Chauhan MD, [address], [address], [address], 8 09:21:[address] referral 2017 018 [email or web address] [facility], [address] [place], [address], 8 09:21:[address] referral 2017 018 [email or web address] Not available 8 09:51:19 ophthalmol ogist referral 2016 017 [email or web address] Antony Gao DO, [address] [place], [address], 8 09:20:10 blood bank laboratory technician referral 2016 017 [email or web address] Not available 8 09:20:10 Procedures None recorded. Surgeries None recorded. Imaging None recorded. Medication Orders albuterol sulfate HFA 90 mcg/actuat ion aerosol inhaler 2017 018 [facility], [address] [place], [address], 8 12:59:47 Singulair 10 mg tablet 2017 018 [facility], [address] [place], [address], 8 12:59:47 fluticason e propionate 50 mcg/actuat ion nasal spray,susp ension 2017 018 [facility], [address] [place], [address], 8 12:59:47 albuterol sulfate 2.5 mg/3 mL (0.083 %) solution for nebulizati on 2017 018 [facility], [address] [facility], [place], [address], 8 12:59:47 mometasone -formotero l HFA 100 mcg-5 mcg/actuat ion aerosol inhaler 2017 018 [facility], [address] [facility], [place], [address], 8 12:59:47 azithromyc in 250 mg tablet 2017 018 [facility], [address] [place] [address], [address], 8 12:59:47 Contour Next Test Strips 2017 018 INTERFACE [facility], [address] [place] [address], [address], 8 11:14:14 albuterol sulfate 0.63 mg/3 mL solution for nebulizati on 2017 018 INTERFACE [facility], [address] [place] [address], [address], 8 11:14:18 albuterol sulfate 2.5 mg/3 mL (0.083 %) solution for nebulizati on 2017 018 [facility]FACE [facility], [address] [place] [address], [address], 8 11:14:02 albuterol sulfate HFA 90 mcg/actuat ion aerosol inhaler 2017 018 [facility]FACE [facility], [address] [place] [address], [address], 8 11:14:06 cholecalci ferol (vitamin D3) 1,250 mcg (50,000 unit) capsule 2017 018 [facility]FACE [facility], [address] [place] [address], [address], 8 11:14:10 Contour Next Test Strips 2016 INTERFACE [facility], [address] [place] [address], [place], [address], 7 10:33:41 omeprazole 40 mg capsule,de layed release 2016 INTERFACE [facility], [address] [place] [address], [address], 7 10:34:33 atorvastat in 20 mg tablet 2016 INTERFACE [facility], [address] [place] [address], [place], [address], 7 10:34:18 Advair Diskus 250 mcg-50 mcg/dose powder for inhalation 2016 INTERFACE [facility], [address] [place] [address], [address], 7 10:33:45 albuterol sulfate 0.63 mg/3 mL solution for nebulizati on 2016 INTERFACE [facility], [address] [place] [address], [place], [address], 7 10:34:02 fluticason e propionate 50 mcg/actuat ion nasal spray,susp ension 2016 INTERFACE [facility], [address] [place] [address], [address], 7 10:34:02 Singulair 10 mg tablet 2016 017 INTERFACE [facility], [address] [place] [address], [address], 7 10:34:26 albuterol sulfate HFA 90 mcg/actuat ion aerosol inhaler 11/16/ 2017 11/16/2 017 INTERFACE [facility], [address] [facility], [place], [address], 7 10:34:22 Vitamin D2 1,250 mcg (50,000 unit) capsule 2016 017 [facility]FACE [facility], [address] [facility], [place], [address], 7 10:33:51 amitriptyl ine 25 mg tablet 2016 017 [facility]FACE [facility], [address] [facility], [place], [address], 7 10:34:09 Fioricet 50 mg-300 mg-40 mg capsule 2016 017 [facility], [address] [facility], [place], [address], 7 10:46:58 Topamax 25 mg tablet 2016 017 [facility], [address] [facility], [place], [address], 7 10:34:21 Patient TargetsNo targets recorded. Patient Instructions Encounter Date Encounter Id Patient Instructions Last Modified By Organization Details Last Modified Time 08/05/2017 [id number] The patient diagnosis, treatment and medicines were discussed, including side effects. The patient was provided with appropriate answers, was given appropriate prescriptions and next appointment as needed. No further questions from the patient. Not available 08/05/2017 10:22:40 09/28/2017 [id number] high cholesterol : care instructions [email or web address] Not available 09/28/2017 11:12:07 back care and preventing injuries: care instructions [email or web address] Not available 09/28/2017 11:12:07 getting back to normal after low back pain: care instructions [email or web address] Not available 09/28/2017 11:12:07 learning about relief for back pain [email or web address] Not available 09/28/2017 11:12:07 menopausal hormo ne therapy (ht): care instructions [email or web address] Not available 09/28/2017 11:12:07 controlling your asthma: care instructions [email or web address] Not available 09/28/2017 11:12:07 learning about asthma [email or web address] Not available 09/28/2017 11:12:07 learning about mood disorders Not available 09/28/2017 11:12:07 When You Want to Lose Weight: Care Instructions [email or web address] Not available 09/28/2017 11:12:07 Cuando desea gali rice de peso: Instrucciones de cuidado - [When You Want to Lose Weight: Care Instructions] [email or web address] Not available 09/28/2017 11:12:07 The patient diagnosis, treatment and medicines were discussed, including side effects. The patient was provided with appropriate answers, was given appropriate prescriptions and next appointment as needed. No further questions from the patient. [email or web address] Not available 09/28/2017 10:37:58 12/02/2017 [id number] The patient diagnosis, treatment and medicines were discussed, including side effects. The patient was provided with appropriate answers, was given appropriate prescriptions and next appointment as needed. No further questions from the patient. Not available 12/02/2017 12:28:04 Reason for Referral Area Captain Referral for Diabetes mellitus Referring Physician: Ibis Singer Physician Boxing And Pressing Supervisor, Encounter Date: 08/05/2017 Delivery Analyst Referral for Diab etes mellitus Referring Physician: Ibis Singer Physician Boxing And Pressing Supervisor, Encounter Date: 08/05/2017 Endocrinology Referral for H ormone replacement therapy Referring Physician: Jason Mello, Internal Medicine, Encounter Date: 09/28/2017 Associate Professor Of Law Referral for Олег dy mass index 30+ - obesity Referring Physician: Jason Mello, Internal Medicine, Encounter Date: 09/28/2017 Psychiatrist Referral for De pressive disorder Referring Physician: Jason Mello Internal Medicine, Encounter Date: 09/28/2017 Associate Professor Of Law Referral for Олег dy mass index 30+ - obesity Referring Physician: Ibis Singer Physician Boxing And Pressing Supervisor, Encounter Date: 12/02/2017 Results Created Date Observation Date Name Description Value Unit Range Abnormal Flag Note LastModifiedBy Organization Detail LastModifiedTime 08/05/20 17 08/05/2017 urina lysis , compl ete color Yellow Not Available [facility] (Lab) [address] [facility], [place], [address], 08/06/2017 06:12:15 08/05/20 17 08/05/2017 urina lysis , compl ete clarity Cloudy Not Available [facility] (Lab) [address] [facility], [place], [address], 08/06/2017 06:12:15 08/05/20 17 08/05/2017 urina lysis , compl ete bilirubin Negati ve negati ve normal Not Available [facility] (Lab) [address] [facility], [place], [address], 08/06/2017 06:12:15 08/05/20 17 08/05/2017 urina lysis , compl ete urobilinogen <2.0 mg/dL 0.2-1. 9 normal Not Available [facility] (Lab) [address] [facility], [place], [address], 08/06/2017 06:12:15 08/05/20 17 08/05/2017 urina lysis , compl ete ketones Negati ve mg/dL negati ve normal Not Available [facility] (Lab) [address] [facility], [place], [address], 08/06/2017 06:12:15 08/05/20 17 08/05/2017 urina lysis , compl ete glucose Negati ve mg/dL negati ve normal Not Available [facility] (Lab) [address] [facility], [place], [address], 08/06/2017 06:12:15 08/05/20 17 08/05/2017 urina lysis , compl ete protein 30 mg/dL negati ve abnormal Not Available [facility] (Lab) [address] [facility], [place], [address], 08/06/2017 06:12:15 08/05/20 17 08/05/2017 urina lysis , compl ete blood Small negati ve abnormal Not Available [facility] (Lab) [address] [facility], [place], [address], 08/06/2017 06:12:15 08/05/20 17 08/05/2017 urina lysis , compl ete pH 6.0 5.0-9. 0 normal Not Available [facility] (Lab) [address] [facility], [place], [address], 08/06/2017 06:12:15 08/05/20 17 08/05/2017 urina lysis , compl ete nitrite Negati ve negati ve normal Not Available [facility] (Lab) [address] [facility], [place], [address], 08/06/2017 06:12:15 08/05/20 17 08/05/2017 urina lysis , compl ete leuk esterase Large negati ve abnormal Not Available [facility] (Lab) [address] [facility], [place], [address], 08/06/2017 06:12:15 08/05/20 17 08/05/2017 urina lysis , compl ete specific gravity 1.031 1.001- 1.035 normal Not Available [facility] (Lab) [address] [facility], [place], [address], 08/06/2017 06:12:15 08/05/20 17 08/05/2017 urina lysis , compl ete red blood cell 3-4 #/hpf none,0 -2 abnormal Not Available [facility] (Lab) [address] [facility], [place], [address], 08/06/2017 06:12:15 08/05/20 17 08/05/2017 urina lysis , compl ete white blood cell 30-49 #/hpf none,0 -5 abnormal Not Available [facility] (Lab) [address] [facility], [place], [address], 08/06/2017 06:12:15 08/05/20 17 08/05/2017 urina lysis , compl ete bacteria Few /hpf none abnormal Not Available [facility] (Lab) [address], [place], [address], 08/06/2017 06:12:15 08/05/20 17 08/05/2017 urina lysis , compl ete mucus Modera te /hpf none,t race,f ew abnormal Not Available [facility] (Lab) [address], [place], [address], 08/06/2017 06:12:15 08/05/20 17 08/05/2017 urina lysis , compl ete non-squamous epi Trace /hpf none abnormal Not Available [facility] (Lab) [address], [place], [address], 08/06/2017 06:12:15 08/05/20 17 08/05/2017 urina lysis , compl ete squam epi cells Modera te /hpf none abnormal Not Available [facility] (Lab) [address] [facility], [place], [address], 08/06/2017 06:12:15 08/05/20 17 08/05/2017 micro album in/cr eatin ine, mass ratio , urine creatinine, urine 302 mg/dL No Refer ence Range avail able for Rando m Urine s. Not Available [facility] (Lab) [address], [place], [address], 08/06/2017 06:12:16 08/05/20 17 08/05/2017 micro album in/cr eatin ine, mass ratio , urine microalbumin 1.9 mg/dL 0.0-1. 9 normal Not Available [facility] (Lab) [address], [place], [address], 08/06/2017 06:12:16 08/05/20 17 08/05/2017 micro album in/cr eatin ine, mass ratio , urine microalbumin /creatinine ratio 6 mcg/m g 0-30 normal Not Available [facility] (Lab) [address], [place], [address], 08/06/2017 06:12:16 08/06/20 17 08/06/2017 CMP, serum or plasm a sodium 142 mmol/ L 136 - 145 Not Available [facility] [address] [facility] [address], [place], [address], 08/06/2017 16:31:17 08/06/20 17 08/06/2017 CMP, serum or plasm a potassium 4.3 mmol/ L 3.5 - 5.1 Not Available [facility] [address], [place], [address], 08/06/2017 16:31:17 08/06/20 17 08/06/2017 CMP, serum or plasm a chloride 104 mmol/ L 98 - 107 Not Available [facility] [address] [facility] [address], [place], [address], 08/06/2017 16:31:17 08/06/20 17 08/06/2017 CMP, serum or plasm a carbon dioxide 30 mmol/ L 23 - 31 Not Available [facility] [address] [facility] [address], [place], [address], 08/06/2017 16:31:17 08/06/20 17 08/06/2017 CMP, serum or plasm a anion gap 12.3 7.0 - 34.0 Not Available [facility] [address] [facility] [address], [place], [address], 08/06/2017 16:31:17 08/06/20 17 08/06/2017 CMP, serum or plasm a glucose 90 mg/dL 74 - 106 Not Available [facility] [address] [facility] [address], [place], [address], 08/06/2017 16:31:17 08/06/20 17 08/06/2017 CMP, serum or plasm a BUN 14.0 mg/dL 6 - 20 Not Available [facility] [address], [place], [address], 08/06/2017 16:31:17 08/06/20 17 08/06/2017 CMP, serum or plasm a creatinine 0.9 mg/dL 0.5 - 1.2 Not Available [facility] [address] [facility] [address], [place], [address], 08/06/2017 16:31:17 08/06/20 17 08/06/2017 CMP, serum or plasm a calcium 9.9 mg/dL 8.4 - 10.5 Not Available [facility] [address] [facility] [address], [place], [address], 08/06/2017 16:31:17 08/06/20 17 08/06/2017 CMP, serum or plasm a total protein 7.5 g/dL 6.4 - 8.3 Not Available [facility] [address] [facility] [address], [place], [address], 08/06/2017 16:31:17 08/06/20 17 08/06/2017 CMP, serum or plasm a albumin 4.7 g/dL 3.5 - 4.8 Not Available [facility] [address] [facility] [address], [place], [address], 08/06/2017 16:31:17 08/06/20 17 08/06/2017 CMP, serum or plasm a globulin 2.8 g/dL 2.3 - 3.5 Not Available [facility] [address] [facility] [address], [place], [address], 08/06/2017 16:31:17 08/06/20 17 08/06/2017 CMP, serum or plasm a A/G 1.7 # 9 - 56 low Not Available [facility] [address] [facility] [address], [place], [address], 08/06/2017 16:31:17 08/06/20 17 08/06/2017 CMP, serum or plasm a alk phos 82 U/L 42 - 141 Not Available [facility] [address] [facility] [address], [place], [address], 08/06/2017 16:31:17 08/06/20 17 08/06/2017 CMP, serum or plasm a ALT 24 U/L 7 - 34 Not Available [facility] [address] [facility] [address], [place], [address], 08/06/2017 16:31:17 08/06/20 17 08/06/2017 CMP, serum or plasm a AST 21 U/L 7 - 31 Not Available [facility] [address] [facility] [address], [place], [address], 08/06/2017 16:31:17 08/06/20 17 08/06/2017 CMP, serum or plasm a total bilirubin 0.5 mg/dL 0 - 1.2 Not Available [facility] [address] [facility] [address], [place], [address], 08/06/2017 16:31:17 08/06/20 17 08/06/2017 CMP, serum or plasm a age 37 years Not Available [facility] [address] [facility] [address], [place], [address], 08/06/2017 16:31:17 08/06/20 17 08/06/2017 CMP, serum or plasm a sex multiplier 0.742 # Not Available [facility] [address] [facility] [address], [place], [address], 08/06/2017 16:31:17 08/06/20 17 08/06/2017 CMP, serum or plasm a eGFR aa 85 mL/mi n/1.7 3 60 - 300 Not Available [facility] [address] [facility] [address], [place], [address], 08/06/2017 16:31:17 08/06/20 17 08/06/2017 CMP, serum or plasm a eGFR nonaa 70 mL/mi n/1.7 3 60 - 300 Not Available [facility] [address] [facility] [address], [place], [address], 08/06/2017 16:31:17 08/06/20 17 08/06/2017 CBC WBC 5.3 10*3/ uL 3.5 - 10.0 Not Available [facility] [address] [facility] [address], [place], [address], 08/06/2017 16:31:20 08/06/20 17 08/06/2017 CBC RBC 4.90 10*6/ uL 3.9 - 5.10 Not Available [facility] [address] [facility] [address], [place], [address], 08/06/2017 16:31:20 08/06/20 17 08/06/2017 CBC HGB 14.2 g/dL 12.0 - 15.0 Not Available [facility] [address] [facility] [address], [place], [address], 08/06/2017 16:31:20 08/06/20 17 08/06/2017 CBC HCT 43.3 % 37.0 - 45.0 Not Available [facility] [address] [facility] [address], [place], [address], 08/06/2017 16:31:20 08/06/20 17 08/06/2017 CBC MCV 88.0 fL 83 - 100 Not Available [facility] [address] [facility] [address], [place], [address], 08/06/2017 16:31:20 08/06/20 17 08/06/2017 CBC MCH 29.1 pg 26.0 - 34.0 Not Available [facility] [address] [facility] [address], [place], [address], 08/06/2017 16:31:20 08/06/20 17 08/06/2017 CBC MCHC 32.9 g/dL 32.0 - 35 Not Available [facility] [address] [facility] [address], [place], [address], 08/06/2017 16:31:20 08/06/20 17 08/06/2017 CBC RDW 14.2 % 12.0 - 16.0 Not Available [facility] [address] [facility] [address], [place], [address], 08/06/2017 16:31:20 08/06/20 17 08/06/2017 CBC plt 328 10*3/ uL 145 - 355 Not Available [facility] [address] [facility] [address], [place], [address], 08/06/2017 16:31:20 08/06/20 17 08/06/2017 CBC MPV 7.5 fL 7.3 - 10.0 Not Available [facility] [address] [facility] [address], [place], [address], 08/06/2017 16:31:20 08/06/20 17 08/06/2017 CBC gr% 39.4 % 49 - 79 low Not Available [facility] [address] [facility] [address], [place], [address], 08/06/2017 16:31:20 08/06/20 17 08/06/2017 CBC gr# 2.2 # 1.1 - 6.0 Not Available [facility] [address] [facility] [address], [place], [address], 08/06/2017 16:31:20 08/06/20 17 08/06/2017 CBC MO% 9.0 % 2.0 - 6.0 high Not Available [facility] [address] [facility] [address], [place], [address], 08/06/2017 16:31:20 08/06/20 17 08/06/2017 CBC MO# 0.4 # 0.3 - 1.0 Not Available [facility] [address] [facility] [address], [place], [address], 08/06/2017 16:31:20 08/06/20 17 08/06/2017 CBC ly% 51.6 % 19.0 - 47.0 high Not Available [facility] [address] [facility] [address], [place], [address], 08/06/2017 16:31:20 08/06/20 17 08/06/2017 CBC ly# 2.7 # 0.7 - 3.7 Not Available [facility] [address] [facility] [address], [place], [address], 08/06/2017 16:31:20 08/06/20 17 08/06/2017 lipid panel , serum cholesterol 183 mg/dL 100 - 199 Not Available [facility] [address] [facility] [address], [place], [address], 08/06/2017 16:31:21 08/06/20 17 08/06/2017 lipid panel , serum triglyceride 76 mg/dL 0 - 150 Not Available [facility] [address] [facility] [address], [place], [address], 08/06/2017 16:31:21 08/06/20 17 08/06/2017 lipid panel , serum HDL 46 mg/dL 30 - 85 Not Available [facility] [address] [facility] [address], [place], [address], 08/06/2017 16:31:21 08/06/20 17 08/06/2017 lipid panel , serum LDL-calculat ed 122 mg/dL 0 - 100 high Not Available [facility] [address] [facility] [address], [place], [address], 08/06/2017 16:31:21 08/06/20 17 08/06/2017 lipid panel , serum C/H 4.0 # 1.0 - 4.0 Not Available [facility] [address] [facility] [address], [place], [address], 08/06/2017 16:31:21 08/06/20 17 08/06/2017 magne sium, serum or plasm a magnesium 2.3 mg/dL 1.7 - 2.8 Not Available [facility] [address] [facility] [address], [place], [address], 08/06/2017 16:31:22 08/06/20 17 08/06/2017 HbA1c (hemo globi n A1c), blood hemoglobin A1C 5.8 % 4 - 6 Not Available [facility] [address] [facility] [address], [place], [address], 08/09/2017 16:41:30 08/06/20 17 08/06/2017 T3, total , serum TT3 1.4 NG/mL 0.7 - 1.7 Not Available [facility] [address], [place], [address], 08/11/2017 20:31:08 08/06/20 17 08/06/2017 TSH, serum or plasm a TSH 1.1 mIU/L 0.5 - 6.8 Not Available [facility] [address], [place], [address], 08/11/2017 20:31:12 08/06/20 17 08/06/2017 T4, free, serum free T4 1.5 NG/dL 0.75 - 1.54 Not Available [facility] [address] [address], [place], [address], 08/11/2017 20:31:43 08/06/20 17 08/06/2017 vitam in B12, serum vitamin B12 581 pg/mL 230 - 1050 Not Available [facility] [address], [place], [address], 08/11/2017 20:31:44 08/06/20 17 08/06/2017 folat e, serum folate 11.5 NG/mL 3 - 16 Not Available [facility] [address], [place], [address], 08/11/2017 20:31:45 08/06/20 17 08/06/2017 vitam in D, 25-hy droxy , total , serum vitamin D 27.9 NG/dL 31 - 100 low Not Available [facility] [address] [facility] [address], [place], [address], 08/18/2017 16:29:27 12/03/19 18 12/02/2017 urina lysis , compl ete color Yellow Not Available [facility] (Lab) [address] [facility], [place], [address], 12/03/2017 07:00:01 12/03/19 18 12/02/2017 urina lysis , compl ete clarity Slight ly-Apryl udy Not Available [facility] (Lab) [address] [facility] [address], [place], [address], 12/03/2017 07:00:01 12/03/19 18 12/02/2017 urina lysis , compl ete bilirubin Negati ve negati ve normal Not Available [facility] (Lab) [address] [facility], [place], [address], 12/03/2017 07:00:01 12/03/19 18 12/02/2017 urina lysis , compl ete urobilinogen <2.0 mg/dL 0.2-1. 9 normal Not Available [facility] (Lab) [address] [facility], [place], [address], 12/03/2017 07:00:01 12/03/19 18 12/02/2017 urina lysis , compl ete ketones Negati ve mg/dL negati ve normal Not Available [facility] (Lab) [address] [facility], [place], [address], 12/03/2017 07:00:01 12/03/19 18 12/02/2017 urina lysis , compl ete glucose Negati ve mg/dL negati ve normal Not Available [facility] (Lab) [address] [facility], [place], [address], 12/03/2017 07:00:01 12/03/19 18 12/02/2017 urina lysis , compl ete protein Negati ve mg/dL negati ve normal Not Available [facility] (Lab) [address] [facility], [place], [address], 12/03/2017 07:00:01 12/03/19 18 12/02/2017 urina lysis , compl ete blood Negati ve negati ve normal Not Available [facility] (Lab) [address] [facility], [place], [address], 12/03/2017 07:00:01 12/03/19 18 12/02/2017 urina lysis , compl ete pH 6.0 5.0-9. 0 normal Not Available [facility] (Lab) [address] [facility], [place], [address], 12/03/2017 07:00:01 12/03/19 18 12/02/2017 urina lysis , compl ete nitrite Negati ve negati ve normal Not Available [facility] (Lab) [address] [facility], [place], [address], 12/03/2017 07:00:01 12/03/19 18 12/02/2017 urina lysis , compl ete leuk esterase Trace negati ve abnormal Not Available [facility] (Lab) [address] [facility], [place], [address], 12/03/2017 07:00:01 12/03/19 18 12/02/2017 urina lysis , compl ete specific gravity 1.020 1.001- 1.035 normal Not Available [facility] (Lab) [address] [facility], [place], [address], 12/03/2017 07:00:01 12/03/19 18 12/02/2017 urina lysis , compl ete red blood cell 0-2 #/hpf none,0 -2 normal Not Available [facility] (Lab) [address] [place], [address], 12/03/2017 07:00:01 12/03/19 18 12/02/2017 urina lysis , compl ete white blood cell 0-5 #/hpf none,0 -5 normal Not Available [facility] (Lab) [address] [place], [address], 12/03/2017 07:00:01 12/03/19 18 12/02/2017 urina lysis , compl ete bacteria None /hpf none normal Not Available [facility] (Lab) [address], [place], [address], 12/03/2017 07:00:01 12/03/19 18 12/02/2017 urina lysis , compl ete mucus Few /hpf none,t race,f ew normal Not Available [facility] (Lab) [address] [facility], [place], [address], 12/03/2017 07:00:01 12/03/19 18 12/02/2017 urina lysis , compl ete squam epi cells Modera te /hpf none abnormal Not Available [facility] (Lab) [address] [facility], [place], [address], 12/03/2017 07:00:01 12/03/19 18 12/02/2017 HbA1c (hemo globi n A1c), blood hemoglobin A1C 6.5 % 4 - 6 high Not Available [facility] [address], [place], [address], 12/03/2017 18:54:16 12/03/19 18 12/02/2017 homoc ystei ne, blood homocysteine 10.4 umol/ L 6.6 - 17.8 Not Available [facility] [address], [place], [address], 12/08/2017 17:59:22 12/04/19 18 12/03/2017 CBC WBC 5.0 10*3/ uL 3.5 - 10.0 Not Available [facility] [address], [place], [address], 12/03/2017 18:54:19 12/04/19 18 12/03/2017 CBC RBC 4.86 10*6/ uL 3.9 - 5.10 Not Available [facility] [address], [place], [address], 12/03/2017 18:54:19 12/04/19 18 12/03/2017 CBC HGB 14.3 g/dL 12.0 - 15.0 Not Available [facility] [address], [place], [address], 12/03/2017 18:54:19 12/04/19 18 12/03/2017 CBC HCT 44.4 % 37.0 - 45.0 Not Available [facility] [address], [place], [address], 12/03/2017 18:54:19 12/04/19 18 12/03/2017 CBC MCV 91.0 fL 83 - 100 Not Available [facility] [address], [place], [address], 12/03/2017 18:54:19 12/04/19 18 12/03/2017 CBC MCH 29.5 pg 26.0 - 34.0 Not Available [facility] [address], [place], [address], 12/03/2017 18:54:19 12/04/19 18 12/03/2017 CBC MCHC 32.2 g/dL 32.0 - 35 Not Available [facility] [address], [place], [address], 12/03/2017 18:54:19 12/04/19 18 12/03/2017 CBC RDW 14.0 % 12.0 - 16.0 Not Available [facility] [address], [place], [address], 12/03/2017 18:54:19 12/04/19 18 12/03/2017 CBC plt 310 10*3/ uL 145 - 355 Not Available [facility] [address], [place], [address], 12/03/2017 18:54:19 12/04/19 18 12/03/2017 CBC MPV 7.8 fL 7.3 - 10.0 Not Available [facility] [address], [place], [address], 12/03/2017 18:54:19 12/04/19 18 12/03/2017 CBC gr% 43.1 % 49 - 79 low Not Available [facility] [address] [address], [place], [address], 12/03/2017 18:54:19 12/04/19 18 12/03/2017 CBC gr# 2.3 # 1.1 - 6.0 Not Available [facility] [address] [address], [place], [address], 12/03/2017 18:54:19 12/04/19 18 12/03/2017 CBC MO% 8.9 % 2.0 - 6.0 high Not Available [facility] [address] [address], [place], [address], 12/03/2017 18:54:19 12/04/19 18 12/03/2017 CBC MO# 0.4 # 0.3 - 1.0 Not Available [facility] [address] [address], [place], [address], 12/03/2017 18:54:19 12/04/19 18 12/03/2017 CBC ly% 48.0 % 19.0 - 47.0 high Not Available [facility] [address] [address], [place], [address], 12/03/2017 18:54:19 12/04/19 18 12/03/2017 CBC ly# 2.3 # 0.7 - 3.7 Not Available [facility] [address] [address], [place], [address], 12/03/2017 18:54:19 12/04/19 18 12/03/2017 magne sium, serum or plasm a magnesium 2.2 mg/dL 1.7 - 2.8 Not Available [facility] [address], [place], [address], 12/07/2017 20:29:44 12/04/19 18 12/03/2017 CMP, serum or plasm a sodium 143 mmol/ L 136 - 145 Not Available [facility] [address] [facility] [address], [place], [address], 12/07/2017 20:29:45 12/04/19 18 12/03/2017 CMP, serum or plasm a potassium 4.4 mmol/ L 3.5 - 5.1 Not Available [facility] [address] [facility] [address], [place], [address], 12/07/2017 20:29:45 12/04/19 18 12/03/2017 CMP, serum or plasm a chloride 104 mmol/ L 98 - 107 Not Available [facility] [address] [facility] [address], [place], [address], 12/07/2017 20:29:45 12/04/19 18 12/03/2017 CMP, serum or plasm a carbon dioxide 30 mmol/ L 23 - 31 Not Available [facility] [address] [facility] [address], [place], [address], 12/07/2017 20:29:45 12/04/19 18 12/03/2017 CMP, serum or plasm a anion gap 13.4 7.0 - 34.0 Not Available [facility] [address] [facility] [address], [place], [address], 12/07/2017 20:29:45 12/04/19 18 12/03/2017 CMP, serum or plasm a glucose 84 mg/dL 74 - 106 Not Available [facility] [address] [facility] [address], [place], [address], 12/07/2017 20:29:45 12/04/19 18 12/03/2017 CMP, serum or plasm a BUN 10.4 mg/dL 6 - 20 Not Available [facility] [address] [facility] [address], [place], [address], 12/07/2017 20:29:45 12/04/19 18 12/03/2017 CMP, serum or plasm a creatinine 0.9 mg/dL 0.5 - 1.2 Not Available [facility] [address] [facility] [address], [place], [address], 12/07/2017 20:29:45 12/04/19 18 12/03/2017 CMP, serum or plasm a calcium 10.4 mg/dL 8.4 - 10.5 Not Available [facility] [address], [place], [address], 12/07/2017 20:29:45 12/04/19 18 12/03/2017 CMP, serum or plasm a total protein 7.6 g/dL 6.4 - 8.3 Not Available [facility] [address], [place], [address], 12/07/2017 20:29:45 12/04/19 18 12/03/2017 CMP, serum or plasm a albumin 4.7 g/dL 3.5 - 4.8 Not Available [facility] [address], [place], [address], 12/07/2017 20:29:45 12/04/19 18 12/03/2017 CMP, serum or plasm a globulin 2.9 g/dL 2.3 - 3.5 Not Available [facility] [address] [facility] [address], [place], [address], 12/07/2017 20:29:45 12/04/19 18 12/03/2017 CMP, serum or plasm a A/G 1.6 # 9 - 56 low Not Available [facility] [address] [facility] [address], [place], [address], 12/07/2017 20:29:45 12/04/19 18 12/03/2017 CMP, serum or plasm a alk phos 89 U/L 42 - 141 Not Available [facility] [address] [facility] [address], [place], [address], 12/07/2017 20:29:45 12/04/19 18 12/03/2017 CMP, serum or plasm a ALT 31 U/L 7 - 34 Not Available [facility] [address], [place], [address], 12/07/2017 20:29:45 12/04/19 18 12/03/2017 CMP, serum or plasm a AST 24 U/L 7 - [address] [facility] [address], [place], [address], 12/07/2017 20:29:45 12/04/19 18 12/03/2017 CMP, serum or plasm a total bilirubin 0.4 mg/dL 0 - 1.2 Not Available [facility] [address] [facility] [address], [place], [address], 12/07/2017 20:29:45 12/04/19 18 12/03/2017 CMP, serum or plasm a age 37 years Not Available [facility] [address] [facility] [address], [place], [address], 12/07/2017 20:29:45 12/04/19 18 12/03/2017 CMP, serum or plasm a sex multiplier 0.742 # Not Available [facility] [address] [facility] [address], [place], [address], 12/07/2017 20:29:45 12/04/19 18 12/03/2017 lipid panel , serum cholesterol 200 mg/dL 100 - 199 high Not Available [facility] [address] [facility] [address], [place], [address], 12/07/2017 20:29:46 12/04/19 18 12/03/2017 lipid panel , serum triglyceride 116 mg/dL 0 - 150 Not Available [facility] [address] [facility] [address], [place], [address], 12/07/2017 20:29:46 12/04/19 18 12/03/2017 lipid panel , serum HDL 59 mg/dL 30 - 85 Not Available [facility] [address] [facility] [address], [place], [address], 12/07/2017 20:29:46 12/04/19 18 12/03/2017 lipid panel , serum LDL-calculat ed 118 mg/dL 0 - 100 high Not Available [facility] [address] [facility] [address], [place], [address], 12/07/2017 20:29:46 12/04/19 18 12/03/2017 lipid panel , serum C/H 3.4 # 1.0 - 4.0 Not Available [facility] [address] [facility] [address], [place], [address], 12/07/2017 20:29:46 12/04/19 18 12/03/2017 TSH, serum or plasm a TSH .7 mIU/L 0.5 - 6.8 Not Available [facility] [address] [facility] [address], [place], [address], 12/11/2017 11:04:27 12/04/19 18 12/03/2017 vitam in D, 25-hy droxy , total , serum vitamin D 13.0 NG/dL 31 - 100 critical low Not Available [facility] [address] [facility] [address], [place], [address], 12/11/2017 11:04:30 08/17/20 17 08/05/2017 elect rodrigo rodriguez am No observ ation record ed. [email or web address] Not Available 08/17 17:33:24 Result Notes None recorded. Problems Name Problem SNOMED Code Status Onset Date Resolution Date Notes Provider Name and Address Organization Details Recorded Time Kidney disease 09601226 Active Kiarra schafer [facility] 5 10:22:31 Obesity 001059657 Active HOWIE schafer [facility] 6 13:57:32 Kidney stone 61539128 Active Jason Mello MD [address], [place], [address], [facility] 5 11:56:28 Dysphagia [id number] Fawad Mello MD [address], [place], [address], [place] [facility] 5 10:32:09 Diverticular disease 704534300 Fawad Mello MD [address], [place], [address], [place] [facility] 5 11:56:28 Gastritis 4227245 Active Adolfo Dumasia [place] [facility] 5 11:21:41 Esophagitis 78152008 Fawad Mello MD [address], [place], [address], [facility] 5 11:36:09 Body mass index 30+ - obesity 080994551 Active Adolfo [place] [facility] 6 17:12:50 Petechiae of skin 420086726 Fawad Mello MD [address], [place], [address], [place] [facility] 5 11:36:09 Upper respiratory infection 04644229 Fawad Mello MD [address], [place], [address], [place] [facility] 5 11:56:28 Vitamin D deficiency 80315383 Active Adolfo [place] [facility] 6 10:48:46 Pain in lower limb 48146263 Active Vianney Hidalgo [place] [facility] 5 10:33:06 Acute pharyngitis 444661413 Active Adolfo [place] [facility] 5 10:31:27 Allergic rhinitis 61477094 Active HOWIE CHAMBERS [place] [facility] 6 13:57:32 Chronic back pain 614422399 Active Adolfo [place]andsasia [place] [facility] 6 17:12:50 Dizziness 763228782 Active Adolfo [place] [facility] 6 17:12:50 Hyperuricemia 38803074 Active Adol[place] [facility] 6 17:12:50 Hyperlipidemia 54212688 Active Adolfo [place]ands[place] [facility] 6 17:12:50 Constipation 36546355 Active Adolfo [place]ands[place] [facility] 6 17:12:50 Low back pain 083314116 Active Vianney [place]idal[place] [facility] 5 10:33:06 Sciatica 97006353 Active Vianney [place] [facility] 5 10:33:06 Depressive disorder 58680901 Active Adolfo Sandsasia [place] [facility] 6 17:12:50 Asthma 073715722 Active Venecia Paez [place] [facility] 6 13:25:29 Migraine 41719208 Active HOWIE CHAMBERS [place] [facility] 6 13:57:32 Problem Notes None recorded. Procedures Surgical History Date Name Laterality Status Provider Name and Address Organization Details Recorded Time 08/26/20 17 Date of Last Pap Smear completed Corrie Gonsales [facility] - [facility] 12/02/2017 11:54:17 11/19/19 17 Most Recent Mammogram completed Corrie Gonsales MD - [facility] 12/02/2017 11:53:45 09/20/19 12 Hysterectomy completed Kiarra Aldana MD - [facility] 07/30/2014 12:09:27 09/20/19 08 Breast Surgery completed Kiarra Aldana MD - [facility] 07/30/2014 12:09:27 09/20/19 04 Tubal Ligation completed Kiarra Aldana [facility] 07/30/2014 12:09:27 Imaging Results Imaging Date [...] Not available other moderate Not available 06/19/2014 [id number] UNK thora t closu re Adolfo Dumasia null, [facility] 6 12:46:40 [address] [place] Aspirin medicatio n hives Not available Not available 06/19/2014 [address]108 8 RxNorm Rachel Felton null, [facility] 4 12:28:54 Medications Name Sig Start Date Stop Date [...] 7 160.02 cm 97.6 [degF] 35.3 kg/m2 46499.8 8 g 95 % 95 % 70 /min 94 mm[Hg] 62 mm[Hg] Corrie Gonsales [facility] 7 10:17:07 Date Recorded Body height Body temperature Heart rate Oxygen saturation Oxygen saturation in Arterial blood by Pulse oximetry Body mass index (BMI) Body weight Systolic blood pressure Diastolic blood pressure Provider Name and Address Organization Details Last Updated DateTime 8 160.02 cm 98 [degF] 74 /min 96 % 96 % 35.1 kg/m2 93400.2 9 g 120 mm[Hg] 80 mm[Hg] Rosario Villarreal [facility] 8 10:11:35 Date Recorded Body height Body temperature Body mass index (BMI) Body weight Oxygen saturation Oxygen saturation in Arterial blood by Pulse oximetry Heart rate Systolic blood pressure Diastolic blood pressure Provider Name and Address Organization Details Last Updated DateTime 8 160.02 cm 96.8 [degF] 34.2 kg/m2 42481.3 3 g 98 % 98 % 65 /min 123 mm[Hg] 84 mm[Hg] Corrie Gonsales [facility] 8 11:57:46 Social History Question Answer Notes LastModified by Organizat ion Details LastModified Time Tobacco Smoking Status Never Smoker Rachel schafer MD - [facility] 06/19/2014 12:28:53 What Is Your Level Of Alcohol Consumption? None [email or web address] Information not available 06/19/2014 How Many Years Have You Consumed Alcohol? 0 Information not available 07/08/2015 Are You Blind Or Do You Have Difficulty Seeing? Yes Information n ot available 07/30/2014 What Is Your Level Of Caffeine Consumption? None [email or web address] Information not available 06/19/2014 How Much Tobacco Do You Chew? None Information not available 07/08/2015 Are You Currently Employed? No [email or web address] Information not available 09/28/2017 Are You Deaf Or Do You Have Serious Difficulty Hearing? No Information not available 07/30/2014 What Type Of Diet Are You Following? REGULAR [email or web address] Information n ot available 06/19/2014 Which Illicit Or Recreational Drugs Have You Used? NONE [email or web address] Information not available 06/19/2014 Education 4 Year College [email or web address] Information not available 09/28/2017 What Is The Highest Grade Or Level Of School You Have Completed Or The Highest Degree You Have Received? [id number] [email or web address] Information not available 12/02/2017 What Is Your Occupation? NONE [email or web address] Information not available 12/02/2017 How Many Days Of Moderate To Strenuous Exercise, Like A Brisk Walk, Did You Do In The Last 7 Days? 3 [email or web address] Information not available 12/02/2017 On Those Days That You Engage In Moderate To Strenuous Exercise, How Many Minutes, On Average, Do You Exercise? 3 Information not available 12/02/2017 How Hard Is It For You To Pay For The Very Basics Like Food, Housing, Medical Care, And Heating? [id number] [email or web address] Information not available 12/02/2017 Are There Any Guns Present In Your Home? Yes Information not available 09/28/2017 Hard Of Hearing Or Deaf In One Or Both Ears? 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 No [email or web address] Information no t available 09/28/2017 Live Alone Or With Others? With Others [email or web address] Information not available 06/19/2014 Are There Any Behavioral, Verbal Or Physical Signs Of Dental Pain? No [email or web address] Information not available 09/28/2017 Do You Have Swollen, Bleeding, Ulcer, White/red Patches, Redness Under Dentures? No [email or web address] Information not available 09/28/2017 Do You Have Constant Bad Breath? No [email or web address] Information not available 09/28/2017 Do You Have More Than One Broken Tooth Or Roots? No [email or web address] Information not available 09/28/2017 Do You Have Swollen Tongue? No [email or web address] Information not available 09/28/2017 Do You Present Social Anxiety Symptoms Such As Isolation Or Activities Of Independent Living? Yes [email or web address] Information not available 09/28/2017 Are There Any Household/ Environmental Risks Affecting Your Health? No [email or web address] Information not available 09/28/2017 Is There Any Family History Of Substance Use Such As Drugs Or Alcohol? No [email or web address] Information not available 12/02/2017 Any Family Mental Health History? No [email or web address] Information not available 12/02/2017 Do You Have History Of Mental Health Conditions? No Information n ot available 12/02/2017 1. Over The Past Two Weeks Have You Ever [place] Down, Depressed Or Hopeless? Yes Information not available 07/30/2014 1. Depressed Mood Most Of The Day, Neraly Everyday? Yes Information not available 10/02/2014 2. Markedly Diminished Interest Or Pleasure In Almost All Activities Most Of The Day, Nearly Everyday? Yes Information not available 07/30/2014 2. Over The Past Two Weeks Have You [place] No Pleasure Or Interest In Doing Things? [...] Information not available 10/02/2014 Smoking Assessment 09/28/2017 [email or web address] Inform ation not available 09/28/2017 Drinking Assessment 09/28/2017 Information not available 09/28/2017 Depression Screenin09/28/2017 [email or web address] Information not available 09/28/2017 Have You Ever [place] Like You Should Cut Down On Your Drinking?: No Information not available 07/08/2015 Have People Annoyed You By Criticizing Your Drinking?: No Information not available 07/08/2015 Have You Ever [place] Bad Or Guilty About Your Drinking?: No Information not available 07/08/2015 Have You Ever Had A Drink First Thing In The Morning To Steady Your Nerves Or To Get Rid Of A Hangover (eye Technical Translator)?: No [email or web address] Information not available 12/02/2017 Sleep Screenin09/28/2017 Informat ion not available 09/28/2017 1. Do You Snore Or Have Been Told That You Snore?: Yes Information not available 07/30/2014 2. Do You Wake Up Choking Or Gasping?: Yes Information not available 07/30/2014 3. Excessive Daytime Sleepiness?: Yes Information not available 07/30/2014 Marital Status [email or web address] Informatio n not available 06/19/2014 What Was The Date Of Your Most Recent Tobacco Screening? 12/02/2017 Information not available 04/13/2019 How Many Children Do You Have? 2 [email or web address] Information not available 06/19/2014 Performs Monthly Self-breast Exam? Yes Information no t available 09/28/2017 Do You Use Protection During Sex? No Information not available 07/08/2015 What Is Your Relationship Status? Information not available 12/02/2017 Seat Belts Used Routinely Yes Information not available 09/28/2017 Are You Sexually Active? Yes Information not available 07/08/2015 Smoke Alarm In Home Yes Information not available 09/28/2017 At What Age Did You Start Smoking Tobacco? 0 Information not available 07/08/2015 How Much Tobacco Do You Smoke? No [email or web address] Information not available 06/19/2014 General Stress Level High [email or web address] Information not available 09/28/2017 Do You Feel Stressed (tense, Restless, Nervous, Or Anxious, Or Unable To Sleep At Night)? [id number] [email or web address] Information not available 12/02/2017 Do You Use Sunscreen Routinely? Yes [email or web address] Information not available 09/28/2017 How Many Years Have You Smoked Tobacco? 0 [email or web address] Information not available 12/02/2017 Sex: Unknown Functional Status Question Answer Note LastModified by Organizat ion Details LastModified Time Do you have difficulty walking or climbing stairs? Yes Information not available 07/30/2014 Do you have transportation difficulties? No [email or web address] Information not available 12/02/2017 Do you have difficulty doing errands alone? No Information not available 07/30/2014 Are you able to care for yourself? Yes [email or web address] Information n ot available 06/19/2014 Do you have difficulty dressing or bathing? No Information not available 07/30/2014 What is your exercise level? Occasional 2TIMES A WEEK [email or web address] Information not available 06/19/2014 Mental Status Question [...] Stones N Blood Diseases N Hyperthyroidism N Blood Transfusion N Breast Cancer N mrsa exposure N Hypothyroidism N Lung [...] Code Diagnosis ICD10 Code Diagnosis Note 4796 MD Jesu Salguero [address] [address] 06/19/2014 11:12:34 06/19/2014 13:36:32 Low back pain 272639501 Sciatica 44458307 Depressive disorder 66182666 Asthma 744230203 Migraine 66986646 8235 MD Jesu Salguero [address] [address] 07/30/2014 11:37:06 07/30/2014 12:57:43 Sciatica 06306394 Low back pain 276674544 Kidney disease 37941831 Migraine 40504960 Obesity 009883169 08856 MD Jesu Salguero [address] [address] 6 10/02/2014 09:49:55 10/02/2014 12:19:12 Kidney stone 17838387 Migraine 51620084 Dysphagia 80702079 95197 MD Jesu Salguero [address] [address] 6 12/04/2014 09:52:24 12/04/2014 11:33:08 Depressive disorder 90360850 Migraine 62484960 Kidney stone 59804242 Obesity 605760801 Diverticular disease 885642949 Gastritis 5369041 Esophagitis 07760677 Body mass index 30+ - obesity 116771713 Adult heal th examination 220387012 Petechiae of skin 361254761 Asthma 757980463 MD Riaz Salguero_C [address] [address] 6 01/01/2015 09:48:41 01/01/2015 12:23:25 Asthma 204322234 Upper resp iratory infection 33176084 Depressive disorder 18283020 Diverticular disease 561104432 Gastritis 5233923 Kidney stone 41396163 Low back pain 741590770 Obesity 369272134 Petechiae of skin 867706352 Sciatica 96758875 27731 MD Riaz Salguero_C [address] [address] 6 01/29/2015 09:59:17 01/29/2015 11:40:57 Migraine 72060604 Administra tion of tetanus vaccine 794016625 Sciatica 49860917 Petechiae of skin 842659255 Esophagitis 89344381 Gynecologi c examination 63755888 82329 ADOLFO Mello_C [address] [address] 6 07/08/2015 09:46:55 07/08/2015 11:18:44 Asthma 482399659 J45.30 Low back pain 917263047 M54.5 Migraine 26238265 G43.90 9 Gastritis 6095294 K29.00 gi fu Allergic rhinitis 303059 04 J30.1 Depressive disorder 3548 9007 F32.9 54127 REYES DENISE N.P Morales_C AM [address] [address] 6 07/30/2015 09:33:49 07/30/2015 10:35:26 Low back pain 359118461 M54.5 Migraine 46094627 G43.50 9 Pain in lower limb 83798 006 M79.605 M79.604 Depressive disorder 3548 9007 F33.41 Sciatica 11101650 M54.31 M54.32 Vitamin D deficiency 347 37088 E55.9 98717 ADOLFO Nails [address]8[address] 6 09/02/2015 09:40:40 09/02/2015 10:35:54 Acute pharyngitis 310945573 J02.9 J02.8 tonsilopha ryngitis Asthma 446853717 J45.30 Body mass index 30+ - obesity 916747658 Z68.35 86952 MD Riaz Salguero_C [place] [address] 6 10/17/2015 13:09:45 10/17/2015 14:09:31 Body mass index 30+ - obesity 287220426 Z68.35 Obesity 474981957 E66.9 Vitamin D deficiency 347 88435 E55.9 Depressive disorder 3548 9007 F32.9 Migraine 45090152 G43.90 9 Allergic rhinitis 033417 04 J30.9 22583 ADOLFO Nails [place] [address] 6 12/30/2015 11:51:07 12/30/2015 13:02:02 Administration of diphtheria and tetanus vaccine 17457266 Z23 Chronic back pain 417707 002 G89.29 upper and lower back pain Body mass index 30+ - obesity 461704345 Z68.34 Dizziness 894915206 R42 69906 ADOLFO Nails [place] [address] 6 03/25/2016 13:08:15 03/25/2016 14:34:04 Chronic back pain 855417576 G89.29 upper and lower back pain Depressive disorder 3548 9007 F32.9 Dizziness 796958387 R42 Hyperuricemia 91065038 E 79.0 Vitamin D deficiency 347 38380 E55.9 Hyperlipidemia 46935325 E78.5 Body mass index 30+ - obesity 861832568 Z68.34 Constipation 19127142 K5 9.00 83960 MD Jesu Salguero [place] [address] 6 06/29/2016 10:00:38 06/29/2016 10:46:31 Upper respiratory infection 41702178 J06.9 Arthritis/arthrosis 2741 69423 M19.90 Pure hypercholesterolemia 951439751 E78.0 Vitamin D deficiency 347 11432 E55.9 Cobalamin deficiency 190 781803 E53.8 Screening mammography 24 915769 Z12.31 Gastroesop hageal reflux disease 485710453 K21.9 19678 MD Riaz Salguero_C [address] [address] 07/21/2016 11:53:56 07/21/2016 12:41:20 Asthma 458303409 J45.909 Upper resp iratory infection 08847036 J06.9 Pain in throat 575123643 R07.0 Cough 74342338 R05 Pain of breast 28239520 N64.4 Chronic back pain 700095 002 G89.29 Body mass index 30+ - obesity 348600942 Z68.35 Migraine 34195090 G43.90 9 Acute sinusitis 03153374 J01.90 Polyp of colon 71155476 K63.5 53165 SShliapoch daisy Riaz_Iliana [address] [address] 6 08/25/2016 10:03:04 08/25/2016 11:29:34 Asthma 599063568 J45.909 Migraine 69203196 G43.90 9 Depressive disorder 3548 9007 F32.9 Abnormal c ervical Papanicolaou smear 780801827 R87.619 86923 MD Riaz Salguero_C [address] [address] 6 11/02/2016 15:08:24 11/02/2016 18:03:12 Chronic back pain 138084919 G89.29 Vitamin D deficiency 347 11502 E55.9 Migraine 16120232 G43.90 9 Gastroesop hageal reflux disease 537943054 K21.9 Asthma 809702533 J45.90 9 Low back pain 134486905 M54.5 Hypoglycemia 348949802 E 16.2 Menopausal flushing 1984 96986 N95.1 Abdominal pain 12299570 R10.9 Pure hypercholesterolemia 454314240 E78.00 Cobalamin deficiency 190 185074 E53.8 High gluco se level in blood 210104157 R73.9 94238 MD Jesu Salguero [address] [address] 6 11/16/2016 13:41:10 11/16/2016 14:51:46 Vitamin D deficiency 76519720 E55.9 Depressive disorder 3548 9007 F32.9 Asthma 276230780 J45.90 9 Migraine 95558809 G43.90 9 Gynecologi c examination 06226683 Z01.419 Mixed hyperlipidemia 267 124163 E78.2 START DIET AND EXERCISE Hypoglycemia 575032938 E 16.2 Obstructiv e sleep apnea syndrome 61136648 G47.33 29456 MD Jesu Salguero [address] [address] 6 01/19/2017 14:01:40 01/19/2017 14:41:45 Asthma 575353782 J45.909 Body mass index 30+ - obesity 843653955 Z68.36 Obstructiv e sleep apnea syndrome 23055888 G47.33 Reactive hypoglycemia 31 7006 E16.1 Mixed hyperlipidemia 267 249947 E78.2 START DIET AND EXERCISE 69119 Kellen Nails [address] [address] 6 03/19/2017 12:02:57 03/19/2017 12:44:00 Vitamin D deficiency 97539419 E55.9 Hyperlipidemia 79016372 E78.5 Body mass index 30+ - obesity 121260631 Z68.39 Hyperglycemia 83231592 R 73.9 Migraine 11969732 G43.90 9 Obstructiv e sleep apnea syndrome 75045482 G47.33 Pure hypercholesterolemia 273885742 E78.00 51282 [place] [address] 03/19/2017 15:56:00 03/19/2017 15:56:09 15703 Kellen Nails [address] [address] 6 04/02/2017 11:54:03 04/02/2017 13:39:02 Hyperlipidemia 72409571 E78.5 Diabetes mellitus 742325 09 E11.9 Body mass index 30+ - obesity 147783773 Z68.39 37661 ChrisCecilia kalin Nails [address] [address] 6 04/19/2017 09:43:40 04/19/2017 10:32:09 Hyperlipidemia 27726898 E78.5 Asthma 127216721 J45.90 9 Diabetes mellitus 667680 09 E11.9 Cough 28170517 R05 Acute pharyngitis 165165 003 J02.9 89547 Kellen kalin Nails [address] [address] 6 08/05/2017 09:31:16 08/05/2017 10:50:21 Asthma 981414701 J45.909 Migraine 94658852 G43.90 9 Obesity 197997267 E66.9 Diabetes mellitus 332073 09 E11.9 Vitamin D deficiency 347 15768 E55.9 Hyperlipidemia 17654645 E78.5 Gastroesop hageal reflux disease 000433441 K21.9 Active or passive immunization 188649909 Z23 Uncontroll ed type 2 diabetes mellitus 161836113 E11.65 Cobalamin deficiency 190 072947 E53.8 71392 ChrisCecilia kalin Nails [address] [place] [address] 08/09/2017 11:19:39 08/09/2017 11:19:50 672138 MD Jesu Salguero [address] [address] 09/28/2017 09:47:56 09/28/2017 11:15:07 Asthma 577340937 J45.909 I discussed with the patient the [...] the Nebulizer Treatment was performed. Depressive disorder 3548 9007 F32.9 Migraine without aura 56 467191 G43.009 Body mass index 30+ - obesity 268335846 Z68.35 Low back pain 061988946 M54.5 mild , remains the same as before Active or passive immunization 003576146 Z23 Hormone re placement therapy 824568836 Z79.890 Vitamin D deficiency 347 25828 E55.9 Pure hypercholesterolemia 733894181 E78.00 Diabetes mellitus 569365 09 E11.9 Diet and exercise , Last HbA1c 6.7 Obesity 972360414 E66.9 850504 Kellen Nails AM [address] [place] [address] 12/02/2017 11:17:01 12/02/2017 13:04:22 Asthma 969227680 J45.909 Depressive disorder 3548 9007 F33.8 stable per pt Migraine 29838339 G43.90 9 Adult heal th examination 747652704 Z00.00 Body mass index 30+ - obesity 688852004 Z68.34 Obstructiv e sleep apnea syndrome 46146998 G47.33 Acute pharyngitis 599264 003 J02.9 Prediabetes 612106020 R7 3.03 638565 Kellen Nails AM [address] [place] [address] 12/02/2017 18:01:44 12/02/2017 18:25:46 Health Concerns Section Related Observation LastModified by Organization Detai ls LastModified Time None Recorded Concern Status LastModified by Organization Details LastModified Time None Recorded Advance Directives Directive None Recorded Payers Encounter Date Sequence Insurance Name Policy Number Policy Fernandes Covered Member ID Fernandes Member ID Guarantor Name 08/05/2017 1 [place] [facility] (MEDICAID HMO) [id number] Regina Larson [id number] Regina Larson 08/05/2017 1 [place] [facility] (MEDICAID HMO) [id number] Regina Larson [id number] Regina Larson 09/28/2017 1 [place] [facility] (MEDICAID HMO) [id number] Regina Larson [id number] Regina Larson 12/02/2017 1 [place] [facility] (MEDICAID HMO) [id number] Regina Larson [id number] Regina Larson 12/02/2017 1 [place] [facility] (MEDICAID HMO) [id number] Regina Larson [id number] Regina Larson Notes Date Note Type [...] NO NEW PROBLEMS OR COMPLAINTS. Italia schafer, [facility] 08/05/2017 10:58:21 09/28/2017 text/html Asthma F/UReport ed bypatient.Severity:ab le to sleep during episode; does not interfere with daily activities Context:improving Associated Symptoms:no fever; no fatigue; no irritability; no cough; normal appetite; no changes in productivity; no shortness of breath pt is active and alert, pt went to see director behavioral health who recommend an ice cream server referral. Jason Mello MD [address] [facility],[address], [place], [address], [facility] 09/28/2017 18:13:23 12/02/2017 [...] NO NEW PROBLEMS OR COMPLAINTS. Italia schafer, MD - [facility] 12/02/2017 13:06:29 OBGyn Episode No OBEpisode recorded.
--- OUTSIDE RECORDS SUMMARY | 2025-01-19 13:49 | XMS_ITS | Clinical Summary ---
Author Organization [facility] Address [address] [place] [address] Care Team Providers Care Stove Refinisher Name Role Phone Unavailable Primary Care Provider [...] severity, unspecified whether complicated, unspecified whether persistent ([facility]) Inhale 2 Puffs into the lungs every [...] Flu, Preservative Free 12/09/2018 PNEUMOCOCCAL POLYSACCHARIDE PPV23 (Pneumovax 23) 09/29/2018 TDAP 07/12/2018 Varicella (Varivax), Live Vaccine 12/09/2018,01/2018 Family History Medical History Relation Name Comments [...] Plan of Treatment Not on file Insurance [facility]
--- OUTSIDE RECORDS SUMMARY | 2025-01-19 13:49 | XMS_ITS | Encounter Summary ---
Author Organization [facility] Address [address] [facility] [address] [place] [address] Care Team Providers Care Sliver Lap Tender Name Role Phone Simona Ribeiro MD Primary Care Provide r Reason for Visit * Reason Onset Date Comments Home Care Services 12/07/2022 I called the pt regarding a Physician Summary Form, from [employer]. She stated that she does not [...] Contact Info) Description 12/07/2022 Telephone [facility] [address] [place] [address] Simona Ribeiro MD [address] [place], [place] [phone] Home Care Services (I called the pt regarding a Physician Summary Form, from [employer] [facility]. She stated that she does not [...] 2:00 PM EDT Office Visit [facility] [address] [place] [address] Simona Ribeiro MD [address] [place] [address] 03/07/2025 9:00 AM EDT Office Visit [facility] ADULT DENTAL [address] [place] [address] Nevin Cabezas documented as of this encounter Visit Diagnoses Not on filedocumented in this encounter Care Teams Sliver Lap Tender Relationship Specialty Start Date End Date Simona Ribeiro MD [address] [place] [address] PCP - General Family Medicine 07/21/19 [employer] 02/22/24 documented as of this encounter
--- OUTSIDE RECORDS SUMMARY | 2025-01-19 13:49 | XMS_ITS | Clinical Summary ---
Author Organization [employer] Address [address] [facility] 7[address] [place] [address] Care Team Providers Care Press Reader Name Role Phone Simona Ribeiro MD Primary Care Provide r Allergies Active Allergy Reactions Criticality Noted Date Comments Aspirin Hives,Swelling 07/12/2018 Only to ASA, other NSAIDs is ok. Allergic reaction occurred when pt was 12 years old and occurred in [place]. Penicillin G 12/06/2023 Penicillins Anaphylaxis,Hives High 07/12/2018 [...] g 023 Active Blood Glucose Monitoring Suppl (Much Better AdventuresStXYZE Lite) w/Device kit 1 each in the [...] 024 Active ergocalciferol (Vitamin D-2) 1.25 MG (09883 UT) capsuleIndicatio ns:Vitamin D deficiency Take 1 [...] IF NEEDED 90 mL 3 025 Active metroNIDAZOLE (Metrogel) 0.75 % vaginal gelIndications:B acterial Vaginosis Insert one applicator into vagina at bedtime for 7 nights (CROATIAN) 45 g 025 Active sulfamethoxazole -trimethoprim (Bactrim DS) 800-160 MG tabletIndication s:Acute cystitis without hematuria Take 1 tablet by mouth 2 times daily for 3 days. 6 tablet 025 2024 Active albuterol (2.5 MG/3ML) 0.083% nebulizer solutionIndicati [...] chronic allergic conjunctivitis 11/01/2023 History of dental confucianism 10/06/2023 Missing teeth, acquired 09/14/2023 Acute bacterial [...] Encounters Date Type Department Care Team Description 01/19/2025 8:40 AM EDT Office Visit [facility] [address] [place] [phone] Acute cystitis without hematuria (Primary Dx); Bacterial vaginosis 12/28/[address] [address] Simona Ribeiro MD Durable Medical Equipment (Nebulizer Supplies) 12/26/2024 Telephone [facility] [address] [place] [address] Simona Ribeiro MD Durable Medical Equipment 12/26/2024 Outside Procedure [facility] [address] [place] [address] Jessika Mcclure, OD Presbyopia of both eyes (Primary Dx) 12/25/2024 9:15 AM EDT Office Visit [facility] [address] [place] [address] Jessika Mcclure, OD Regular astigmatism of both eyes (Primary Dx) 12/21/2024 3:30 PM EDT Telemedicine [address] [address] Simona Ribeiro MD Class 1 obesity due to excess calories with serious comorbidity and body mass index (BMI) of 31.0 to 31.9 in adult (Primary Dx); Mild intermittent asthma without complication; Right hand pain 12/21/2024 Travel 12/01/2024 Population Health Risk Score Community Care [facility] (C3) Department [address] [place] [phone] Provider, Population Health Generic 11/22/2024 Telephone [facility] [address] [place] [phone] Simona Ribeiro MD 11/20/2024 9:30 AM EST Office Visit [facility] [address] [place] [address] Can Mccluren, OD Diabetes type 2, 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) (Primary Dx); Rosacea; Dry eyes; Regular astigmatism of both eyes 11/20/2024 Travel 11/02/2024 1:45 PM EST Office Visit [facility] [address] [place] [address] Simona Ribeiro MD Migraine without aura, not [...] 31.9 in adult 11/02/2024 Travel 10/30/2024 Refill [facility] [address] [place] [address] Simona Ribeiro MD Prediabetes 10/27/2024 11:15 AM EST Office Visit [facility] [address] [place] [address] Kezia Patton MD Androgenic alopecia (Primary Dx) 10/27/2024 Travel 10/25/2024 Telephone [facility] [address] [place] [address] Halina Reeves from Last 3 Months Immunizations Name Administration [...] (174 lb) 01/19/2025 8:41 AM EDT Height 160 cm (5' 3 ) 11/02/2024 1:19 PM EST Body Mass Index 30.82 11/02/2024 1:19 PM EST Plan of Treatment Upcoming Encounters Date Type Department Care Team (Late st Contact Info) Description 02/05/2025 2:00 PM EDT Office Visit [facility] [address] [place] [address] Simona Ribeiro MD [address] [place] [address] 03/07/2025 9:00 AM EDT Office Visit [facility] AD[facility] [address] [place], [place] [phone] Nevin Cabezas Health Maintenance Due Date Last [...] Additional history exists Lipid Panel 01/30/2025 01/31/2024, 04/04/2023, 12/02/2020 Dental Prophylaxis 03/07/2025 09/05/2024, 1 11/15/2022, 06/28/2020, Additional history exists Alcohol/Substance Use Screening 04/27/2025 04/27/2024 Mammogram 09/01/2025 09/01/2024, 04/2 05/2024, 08/31/2023, Additional [...] Routine 01/19/2025 8:50 AM EDT Bacterial vaginosis XR HAND 3+ VIEWS RIGHT Routine 11/02/2024 [...] Recently Relevant to Health Maintenance Results * (ABNORMAL) POCT urinalysis dipstick manually [...] CARE TEST ENTER/EDIT OR DERABLES Final Result * XR Hand 3+ Views Right (11/02/2024 2:29 PM EST) Anatomical Region Laterality Modality Upper Extremities, Hand Right Radiogra phic Imaging 11/02/2024 2:29 PM EST Narrative 11/02/2024 2:54 PM EST ?[facility] ?[address] ?[place] [address] ?XRay Report ? Signed ? Patient: Larson Grady,Regina ?MR#: ?? [id number] ? : 1980 ?Acct:[id number] ? Age/Sex: 44 / F ?ADM Date: 11/02/24 ? Loc: HO.HHCX ? Attending Dr: Simona Gaston MD ? Ordering Physician: Simona Ribeiro MD ?? Date of Service: 11/02/24 ?? Procedure(s): XR hand RT min 3V ?? Accession Number(s): [id number] ? cc: Simona Ribeiro MD ? EXAMINATION: [...] DD/ 1429 ? TD/TT: 11/02/24 1434 ? Galvanometer Assembler: ? Procedure Note Jaylin Viveros - 11/02/[address] [address] XRay Report Signed Patient: Regina WillsonMR#: [id number] : 1980Acct:[id number] Age/Sex: 44 / FADM Date: 11/02/24 Loc: HO.HHCX Attending Dr: Simona Gaston MD Ordering Physician: Simona Ribeiro MD Date of Service: 11/02/24 Procedure(s): XR hand RT min 3V Accession Number(s): [id number] cc: Simona Ribeiro MD EXAMINATION: XR HAND, [...] 11/02/24 1452 DD/ 1429 TD/TT: 11/02/24 1434 Galvanometer Assembler: us Simona Gaston MD IMG XR PROCEDURES Fin al Result * BI MR Breast w and w/o Contrast Bilateral (09/01/2024 9:35 AM EST) Anatomical Region Laterality Modality Breast Bilateral Magnetic Resonan ce 09/01/2024 9:35 AM EST Narrative 09/24/2024 2:58 PM EST ? [facility] ?[address] ?[place] [address] ? Magnetic Resonance Report ? Signed ? Patient: Neo Grady,Regina ?MR#: ?? [id number] ? : 1980 ?Acct:[id number] ? Age/Sex: 44 / F ?ADM Date: 12/13/24 ? Loc: HO.MRI ? Attending Dr: Luis Carlos Adrian MD ? Ordering Physician: Luis Carlos Adrian MD ?? Date of Service: 09/01/24 ?? Procedure(s): MR breast BI wo/w con ?? Accession Number(s): [id number] ? cc: Simona Ribeiro MD; Luis Carlos [...] DD/ 0935 ? TD/TT: 09/01/24 1015 ? Galvanometer Assembler: ? Procedure Note Jaylin Viveros - 09/24/[address] [address] Magnetic Resonance Report Signed Patient: Regina WillsonMR#: [id number] : 1980Acct:[id number] Age/Sex: 44 / FADM Date: 09/01/24 Loc: HO.MRI Attending Dr: Luis Carlos Adrian MD Ordering Physician: Luis Carlos Adrian MD Date of Service: 09/01/24 Procedure(s): MR breast BI wo/w con Accession Number(s): [id number] cc: Simona Ribeiro MD; Luis Carlos Adrian [...] by: Mya Goetz DO 09/24/2024 02:55 PM [facility] Dictated By: Mya Goetz DO Signed By: <Electronically signed by Mya Goetz DO in OV> 09/24/24 1455 DD/ 0935 TD/TT: 09/01/24 1015 Galvanometer Assembler: [facility] External Provider IMG MRI PROCEDURES Edited Result - Final * Hemoglobin A1c (02/09/2024 9:24 AM EDT) Hemoglobin A1c 5.7 <6.0 % [facility] Comment:Hemoglobin A1C Refer ence Range Adults: 4.8 - 6.0 % Non diabetic: < 6.0 % Goal: < 7.0 %Additional Action Suggested: > 8.0 %Note: Hemoglobin A1c results are invalid for patients with abnormal amounts of HbF. Blood transfusions may impact the HbA1c concentration in the patient sample. Estimated Average Glucose 117 mg/dL [facility] Comment:eAG = Estimated ave rage glucose which is %A1C expressed asaverage glucose, using the formula of the Q1Y-HapukjbCnbsxjj Glucose study (ADAG), Diabetes Care, Vol.31,#8,Apr. 2007 02/09/2024 9:24 AM EDT 02/09/2024 9:24 AM EDT us Generic External Data Provider LAB BLOOD ORDERAB LES Final Result [facility] [address] [place] [phone] * (ABNORMAL) Lipid Panel, Standard (01/31/2024 10:50 AM EDT) Triglycerides 119 <150 mg/dL [facility] Comment:Desirable Triglyceri de: less than 150 mg/dLBorderline High Triglyceride 150-199 mg/dLHigh Triglyceride: 200-499 mg/dLVery High Triglyceride: greater than or equal to 5OO mg/dL Cholesterol 265(H) <200 mg/dL [facility] Comment:Desirable Cholestero l: less than 200 mg/dLBorderline High Cholesterol: 200-239 mg/dLHigh Cholesterol: greater than 239 mg/dL LDL Cholesterol Calculated 178(H) <100 mg/dL [facility] Comment:Desirable LDL: less than 100 mg/dLNear Optimal/Above Optimal LDL: 110- 129 mg/dLBorderline High LDL: 130-159 mg/dLHigh LDL: 160-189 mg/dLVery High LDL: greater than or equal to 190 mg/dL HDL Cholesterol 64 >40 mg/dL [facility] Comment:Desirable HDL: great er than 40 mg/dL Note: This HDL assay may give artificially low results in patients with liver disease. Blood Venous blood specimen / Unknown 01/31/2024 10:50 AM EDT 01/31/2024 1:10 PM EDT us Simona Gaston MD LAB BLOOD ORDERABLES Final Result Performing Organization Address [facility]/ZIP Co de Phone Number [facility] [address] [place] [address] [phone] * HPV E6/E7 RFLX DANNY 16 18/45 (08/18/2021 10:17 AM EST) Pathologist [facility] [place] HPV 16 RNA [facility] HPV 18/45 RNA [facility] HPV E6 E7 ADD [facility]NP [facility] HPV mRNA E6/E7 rflx Not Detected Not Detected [facility] Comment: Methodology: Unit Secretary-Mediated Amplification This assay detects E6/E7 viral messenger RNA (mRNA) from 14 high-risk HPV types (16,18,31,33,35,39,45,51,52,56,58,59,66,68). The analytical performance characteristics of this assay have been determined by [employer]. The modifications have not been cleared or approved by the FDA. This assay has been validated pursuant to the CLIA regulations and is used for clinical purposes. For additional information, please refer to http://education.[employer]/faq/VVM329a0 (This link if provided for information/ educational purposes only.) THIS TEST WAS PERFORMED AT: [facility] [address] [place] [address] FLOOR,[address] [place], [place] ??[phone] JASWINDER PAUL MD 08/18/2021 10:1 7 AM EST us Ramesh Maki MD HISTORICAL/NON ORDERABLE LABS Fi nal Result Performing Organization Address City/[facility]/ZIP Co de Phone Number [facility] [place] [address], * Hm Pap Smear (08/18/2021 12:00 AM EST) us Historical Provider HEALTH MAINTENANCE Final Result from Last 3 Months or Most Recently Relevant to Health Maintenance Insurance [facility] C3 DENTAL-[facility] MEDICAID STAND ADULT Care Teams Press Reader Relationship Specialty Start Date End Date Simona Ribeiro MD [address] [place] [address] PCP - General Family Medicine 07/21/19 [employer] 02/22/24
--- OUTSIDE RECORDS SUMMARY | 2025-01-19 13:49 | XMS_ITS | Encounter Summary ---
Author Organization [employer] Address [address] [facility] 7t [place] [address] Care Team Providers Care Horseradish Maker Name Role Phone Simona Ribeiro MD Primary Care Provide r Encounter Details Date Type Department Care Team (Late Contact Info) Description 06/14/2023 Orders Only [facility] MEDICINE [address] [place], [place] [phone] [place] Patel Social History Tobacco Use Types [...] 2:00 PM EDT Office Visit [facility] MEDICINE [address] [place], [place] [phone] Simona Ribeiro MD [address] [place], [place] [phone] 03/07/2025 9:00 AM EDT Office Visit [facility] ADULT DENTAL [address] [place], [place] [phone] Nevin Cabezsa documented as of this encounter Procedures Procedure Name Priority Date/Time Associated Diagnosis Comments HM PAP/HPV Routine 08/18/2021 12:00 AM EST documented in this encounter Results * Hm Pap Smear (08/18/2021 12:00 AM EST) us Historical Provider HEALTH MAINTENANCE Final Result documented in this encounter Visit Diagnoses Not on filedocumented in this encounter Care Teams Horseradish Maker Relationship Specialty Start Date End Date Simona Ribeiro MD [address] [place] [address] PCP - General Family Medicine 07/21/19 [employer] 02/22/24 documented as of this encounter
--- OUTSIDE RECORDS SUMMARY | 2025-01-19 13:49 | XMS_ITS | Clinical Summary ---
Author Organization [facility] it Address [address] [place] [address] Care Team Providers Care Pay Agent Name Role Phone Cecilia Zee EMBEDDED SOFTWARE DEVELOPMENT ENGINEER Primary Care Provider [phone] Surgical History Surgery Date Site/Laterality Comments OVARIAN CYST REMOVAL PROCEDURE: ME OVARIAN CYSTECTOMY UNI/BI HYSTERECTOMY PROCEDURE: HISTORICAL HYSTERECTOMY BREAST REDUCTION PROCEDURE: ME BREAST REDUCTION OTHER SURGICAL HISTORY 2007 PROCEDURE: ME PUNCTURE ASPIRATION CYST BREAST EACH ADDL CYST; [...] EDT Narrative 07/09/2019 4:44 PM EDT [facility] Diagnostic Imaging Department [address] [place], [place] [phone] Patient: ??ROBERTO ELIZALDE ?/Age/Sex: 1980 - 39 - F Unit#: ??[id number] ? Location/Status: ??SPDIMAM/PRE CLI ? Mnemonic/Ordering Site: ??DIGSC/SPMAM Ordering Physician: ??REI DELACRUZ CNM [facility] Screening Digital - 07/08/19853 EXAM: [facility] Screening Digital EXAM DATE AND TIME: 07/08/2019 9:20 AM HISTORY: ??Screening. Reduction mammoplasty in 2007. Paternal grandmother had breast carcinoma. COMPARISON: ??Previous mammograms done in [employer] are not available per the patient. TECHNIQUE: CC and MLO views of both breasts were obtained using full field digital mammography. Bilateral digital breast tomosynthesis was performed in the MLO projection. Computer aided detection with the [employer] 7.2-H was employed. TISSUE DENSITY: a. The [...] Routine screening mammogram BILATERAL in 1 year. 92751, 55978 3342F, 7025F Dictating Physician: ??ALIS POWER MD Electronically Signed by: ??ALIS POWER MD Dic Date/Time: ??07/09/191642 Sign date/Time: ??07/09/191643 Procedure Note Alis Power - 09/08/2022 [facility] Diagnostic Imaging Department [address] [place] [address] Patient: CARMELINA ELIZALDENATE HernandezO.B./Age/Sex: 1980 - 39 - F Unit#: [id number] Location/Status: SPDIMAM/PRE CLI Mnemonic/Ordering Site: [facility] Ordering Physician: REI DELACRUZ CNM [facility] Screening Digital - 07/08/19 - 0854 EXAM: [facility] Screening Digital EXAM DATE AND TIME: 07/08/2019 9:20 AM HISTORY: Screening. Reduction mammoplasty in 2007. Paternal grandmotherhad breast carcinoma. COMPARISON: Previous mammograms done in [employer] are not available perthe patient. TECHNIQUE: CC and MLO views of both breasts were obtained using fullfield digital mammography. Bilateral digital breast tomosynthesis was performedin the MLO projection. Computer aided detection with the [employer] employed. TISSUE DENSITY: a. The breasts are [...] Routine screening mammogram BILATERAL in 1 year. 35249, 85942 3342F, 7025F Dictating Physician: ALIS POWER MD Electronically Signed by: ALIS POWER MD Dic Date/Time: 07/09/19 1643 Sign date/Time: 07/09/194 Rei Delacruz CNM IMG BI PROCEDURES Final Resul t * Pap smear (07/06/2019) 07/06/2019 Narrative HISTORICAL TESTING LAB RESULTING AGENCY - 07/10/2019 1:05 PM EDT [id number] THINPREP PAP, IMAGED: NEGATIVE FOR SQUAMOUS INTRAEPITHELIAL [...] Recently Relevant to Health Maintenance Care Teams Pay Agent Relationship Specialty Start Date End Date Cecilia Zee FNP [address] [place] [address] PCP - General Internal Medicine 04/27/19
--- OUTSIDE RECORDS SUMMARY | 2025-01-19 13:49 | XMS_ITS | Data Portability ---
Author Organization [place] - [facility] S urgical Oncology, GS_OP_[facility] Address [address] [place] [address] Care Team Providers Care Etl Consultant Name Role Phone MORRIS DOUGHERTY Referring Provider [phone] Assessment No assessment recorded. Plan of Treatment [...] dipst ick Leukocytes Trace Not Available [facility] [place] 10/29/2014 11:49:34 10/29/1910/29/2014 urina lysis , dipst ick Nitrite negati ve Not Available [facility] [place] 10/29/2014 11:49:34 10/29/19 15 10/29/2014 urina lysis , dipst ick Blood Negati ve Not Available [facility] [place] 10/29/2014 11:49:34 10/29/19 15 10/29/2014 urina lysis , dipst ick Glucose 100 Not Available [facility] [place] 10/29/2014 11:49:34 10/29/19 15 imagi ng/di agnos tic resul t No observ ation record ed. [email or web address] Not Available 2014 17:11:41 Result Notes None recorded. Problems Name Problem SNOMED Code Status Onset Date Resolution Date Notes Provider Name and Address Organization Details Recorded Time Kidney stone 54582838 Active Alen Martinez M.D. [address] [place], [place], [address] [place] [address], [facility] Surgical Oncology 5 11:50:50 Increased frequency of urination 686605700 Active Alen Martinez M.D. [address] [place] [address], [facility] Surgical Oncology 5 14:00:18 Problem Notes None recorded. Procedures Surgical History Date Name Laterality Status Provider Name and Address Organization Details Recorded Time tubiligation completed Alen Martinez M.D. [address] [place], [place], [address] [place] [address], [facility] Surgical Oncology 10/29/2014 11:18:08 Imaging [...] Name and Address Organization Details Recorded Time 28050 Product containin g penicilli n (product) medicatio n Not available Not available Not available 10/29/2014 04418 8001 SNOMED Alen Martinez M.D. [address] [place], [place], [address] [place] [address], [facility] Surgical Oncology 5 11:18:08 56132 aspirin medicatio n Not available Not available Not available 10/29/2014 1191 RxNorm Alen Martinez M.D. [address] [place], [place], [address] [place], [place] [address] Surgical Oncology 5 11:18:08 Medications Name Sig Start Date Stop Date [...] 5 160.02 cm 35.4 kg/m2 60 /min 62442.4 74 g 110 mm[Hg] 78 mm[Hg] Alen Martinez M.D. [address] [place], [address] [place] [address] Surgical Oncology 5 11:20:37 Social History None recorded. Functional Status None recorded. Mental Status None recorded. Family History Nothing Reported. Medical History Condition Response Depression Y Asthma Y Gynecological HistoryNo gynecological history recorded. Obstetrics History GPAL:G 0 P 0 0 0 0 Past Encounters Encounter ID Performer Location Encounter Start Date Encounter Closed Date Diagnosis/Indication Diagnosis SNOMED-CT Code Diagnosis ICD10 Code Diagnosis Note [id number] Alen Martinez M.D. _ [facility] [address] [facility] [place] [address] 10/29/2014 10:43:42 10/29/2014 11:21:31 Kidney stone 15793971 Increased frequency of urination 300895291 Health Concerns Section Related Observation LastModified by Organization Detai ls LastModified Time None Recorded Concern Status LastModified by Organization Details LastModified Time None Recorded Advance Directives Directive None Recorded Payers Encounter Date Sequence Insurance Name Policy Number Policy Fernandes Covered Member ID Fernandes Member ID Guarantor Name 10/29/2014 1 [place] [employer] [place] [employer] Regina Ozunaregis [id number] Regina Lemoniciano Notes Date Note Type Note Provider Name and Address Organization Details Recorded Time 10/29/2014 text/html pt in the er in 08/2014- CT- occ mild right flank pain no ur complaints nocturia x 4-5, ur freq q 2h no hematuria or dysuria no ur stress incontinence occ urgency Alen Martinez M.D. [address] [place], [address], [facility] Surgical Oncology 10/29/2014 11:51:31 OBGyn Episode No OBEpisode recorded.
--- OUTSIDE RECORDS SUMMARY | 2025-01-19 13:49 | XMS_ITS | Encounter Summary ---
Author Organization [employer] Address [address] [facility] [address]t [place] [address] Care Team Providers Care Buggy Man Name Role Phone Simona Ribeiro MD Primary Care Provide r Encounter Details Date Type Department Care Team ([facility] Contact Info) Description 09/01/2022 Telephone [facility] CH[facility] MED & PEDS [address] [place] [address] Hope Garcia RN Social History Tobacco Use [...] Upcoming Encounters Date Type Department Care Team ([facility] Contact Info) Description 02/05/2025 2:00 PM EDT Office Visit [facility] MEDICINE [address] [place] [address] Simona Ribeiro MD [address] [place] [address] 03/07/2025 9:00 AM EDT Office Visit [facility] ADULT DENTAL [address] [place] [address] Nevin Cabezas documented as of this encounter Visit Diagnoses Not on filedocumented in this encounter Care Teams Buggy Man Relationship Specialty Start Date End Date Simona Ribeiro MD [address] [place] [address] PCP - General Family Medicine 07/21/19 [employer] 02/22/24 documented as of this encounter
--- OUTSIDE RECORDS SUMMARY | 2025-01-19 13:49 | XMS_ITS | Encounter Summary ---
Author Organization [employer] Address [address] [facility] 7t [place] [address] Care Team Providers Care Photographic Equipment Mechanic Name Role Phone Simona Ribeiro MD Primary Care Provide r Encounter Details Date Type Department Care Team (Latest Contact Info) Description 10/04/2019 Abstract [facility] CONVERSIONS Dental, Provider, DDS Social History Tobacco [...] Description 02/05/2025 2:00 PM EDT Office Visit [facility] MEDICINE [address] [place] [address] Simona Ribeiro MD [address] [place] [address] 03/07/2025 9:00 AM EDT Office Visit [facility] ADULT DENTAL [address] [place] [address] Nevin Cabezas documented as of this encounter Visit Diagnoses Not on filedocumented in this encounter Care Teams Photographic Equipment Mechanic Relationship Specialty Start Date End Date Simona Ribeiro MD [address] [place] [phone] PCP - General Family Medicine 11/1/19 [employer] 02/22/24 documented as of this encounter
[2025-01-19 14:47] LABS: Bacterial Vaginosis PCR NEGATIVE (Negative); Candida Group PCR NOT DETECTED (Not Detect); Candida glab krusei PCR NOT DETECTED (Not Detect); Trichomonas vaginalis PCR NOT DETECTED (Not Detect)
[2025-01-19 15:19] LABS: CT PCR NOT DETECTED (Not Detect.); NG PCR NOT DETECTED (Not Detect.)
== END 2025-01-19 13:34 | disposition home or self-care (01) ==
LOC: HO.HHCLNP 13:33
PROVIDERS: Visit Provider Family Medicine
DX: N89.8 Other specified noninflammatory disorders of vagina (principal)
CPT/HCPCS: 81515; 87086; 87491; 87591

== ENCOUNTER 2025-02-16 07:38 | Outpatient (REF) | payer MEDICAID, SELFPAY | END 2025-02-16 07:39 | disposition home or self-care (01) | LOC: HO.MAMMO 07:38 | PROVIDERS: PCP Internal Medicine; Visit Provider Surgery | DX: Z12.31 Encounter for screening mammogram for malignant neoplasm of breast (principal) | CPT/HCPCS: 77063; 77067 ==

== ENCOUNTER → 2025-02-16 08:15 | Outpatient (BNV) | payer MEDICAID, SELFPAY | PROVIDERS: PCP Internal Medicine; Visit Provider Internal Medicine | DX: Z12.31 Encounter for screening mammogram for malignant neoplasm of breast (principal) | CPT/HCPCS: 77063; 77067 ==

== ENCOUNTER 2025-02-20 09:21 | Outpatient (AMB) | payer MEDICAID, SELFPAY ==
--- NOTE | 2025-02-20 09:44 | MHC.OFFVISWM ---
VS Expanded 02/20/25 09:55 BP 131/60 Blood Pressure Location Rt brachial Blood Pressure Position Sitting Pulse 71 Pulse Source Pulse Oximeter Temp 97.2 F Temperature Source Temporal Artery Scan Pulse Oximetry 99 Oxygen Delivery Method Room Air Height 5 ft 2 in Weight 162 lb 9.6 oz BMI 29.7 Body Fat % 42.6 Body Fat Mass 69.2 Fat Free Mass 93.2 Visceral Fat Rating 9.0 Body Water % 41.0 Body Water Mass 66.6 Muscle Mass/Score 88.4 Basal Metabolic Rate/Score 1,320 Intake Visit Reasons: (OV) PO LSG 01/06/22 Stator Plate Washer Required: Yes Stator Plate Washer Name: Gigi [id number] Allergies Penicillins Allergy (Severe, Verified 01/05/25 13:54) Anaphylaxis aspirin Allergy (Intermediate, Verified 01/05/25 13:54) Rash seafood Allergy (Intermediate, Verified 01/05/25 13:54) Anaphylaxis, rash Medication List - Last Reconciled 02/20/25 by JO ANN Syed albuterol sulfate 90 mcg/actuation 2 puffs inhalation Q4-6H PRN atorvastatin 20 mg PO DAILY betamethasone dipropionate 0.05% 1 appl topical DAILY PRN bupropion HCl 1 tab PO DAILY buspirone 5 mg PO BID zzoqgezvoa-uldntizkiclad-wjtk 50-300-40 mg (Fioricet) 1 cap PO Q4-6H PRN viixszsidm-bawzgfkmksmak-wlvi 50-325-40 mg 1 cap PO Q4H PRN cholecalciferol (vitamin D3) 25 mcg PO DAILY citalopram 20 mg PO DAILY clotrimazole 1% 1 appl topical BID cyclobenzaprine 10 mg PO Q8H gabapentin 300 mg PO BEDTIME hydroxyzine HCl 50 mg PO BID nystatin 1 appl topical QID oxybutynin chloride 5 mg PO DAILY pantoprazole 40 mg PO DAILY polyethylene glycol 3350 17 grams PO DAILY sennosides (senna) 8.6 mg PO DAILY sumatriptan succinate (Imitrex) 100 mg PO Q2-4H PRN tizanidine 4 mg PO BID PRN 30 days topiramate 50 mg PO BID Zepbound (tirzepatide (weight loss)) 7.5 mg (0.5 mL) subcut QWEEK NS HPI Comments Details: This is a 44 yo female who is s/p LSG 01/06/2022. Weight loss of 9.6lbs since last OV 3mo ago. Now on Zepbound and tolerating well, denies side effects. She also feels that it has helped her anxiety. No complaints of nausea, emesis, abdominal pain. Has reflux, on PPI. Takes senna and Miralax for constipation, otherwise very difficult to have a BM. Present meal plan includes: breakfast- Celebrate 2 scoops lunch- 6f protein, 6f salad/veg dinner- Celebrate 2 scoops Exercise routine includes: yoga 5x/week, likes to walk 30 min daily but unsure how many calories Pt reports problems of excess skin of abdomen. Has been experiencing rashes of skin folds, has tried clotrimazole for open areas. At last visit she also requested nystatin powder for summertime. Very itchy- very uncomfortable. She notices moisture collecting in the skin folds, has to clean more frequently; the moisture smells unpleasant. Has to wear a binder/supportive garment at all times to hold the excess skin in place. Typical activities of daily living are more difficult/uncomfortable such as bending over, when the skin gets in the way. It is difficult to lay down on her side as the skin is heavy and pulls. [facility] Medical History COVID-19 vaccine series completed BMI 34.0-34.9,adult BMI 39.0-39.9,adult Insomnia Seizures DJD (degenerative joint disease) Stress incontinence GERD (gastroesophageal reflux disease) Hyperlipidemia Sleep apnea with use of continuous positive airway pressure (CPAP) Non-insulin dependent type 2 diabetes mellitus Obesity Well woman exam Ovarian low malignant potential tumor Umbilical hernia Migraine Asthma Morbid obesity Pannus, abdominal Surgical History Hx of tonsillectomy (12/22/23) Hx laparoscopic cholecystectomy S/P laparoscopic sleeve gastrectomy Hx of tubal ligation History of hysterectomy History of bilateral breast reduction surgery Family History Father History of prostate cancer Maternal Aunt History of breast cancer Mother Hypertension Hyperlipidemia Brother Thyroid condition Hypertension Brother No problems noted. Son No problems noted. Daughter No problems noted. Social History Are you a primary home health care coordinator to a significant other at home: No Do you presently have visiting nurse or other home services: No Alcohol intake: never Comment: counts correct Patient Tobacco Use Status: Never used Tobacco service: No Female Reproductive History Menstrual Age of Menarche: 11 Physical Exam Vital Signs: Last Vital Signs Temp 97.2 F 02/20/25 09:55 Pulse 71 02/20/25 09:55 BP 131/60 02/20/25 09:55 Pulse Ox 99 02/20/25 09:55 Oxygen Delivery Method Room Air 02/20/25 09:55 BMI result Body Mass Index 29.7 Assessment & Plan Assessment & Plan (1) Overweight: Code(s): E66.3 - Overweight Category: Medical (2) S/P laparoscopic sleeve gastrectomy: Comment: 01/06/22 Code(s): Z98.84 - Bariatric surgery status Category: Medical (3) Excess skin: Code(s): L98.7 - Excessive and redundant skin and subcutaneous tissue Category: Medical Plan Pt doing very well on Zepbound so far. Having issues of excess skin of abdomen, resulting in frequent painful and malodorous rashes which are not completely resolved by topical Rx treatment. In addition, the excess skin is affecting her activities of daily living and making them more painful, uncomfortable, difficult, and also requiring the use of special clothing at all times. Reviewed expected postop panniculectomy course. Target weight 147lbs for BMI <27 prior to skin removal surgery. Also requires weight stability for 1mo. RTC 3mo. Pt will text me once a month with weight updates. Orders: Orders Hemoglobin A1c Today Z98.84 - Bariatric surgery status Complete Blood Count Auto Diff Today Z98.84 - Bariatric surgery status Zinc Today Z98.84 - Bariatric surgery status Vitamin B1 Today Z.84 - Bariatric surgery status Vitamin A Today Z.84 - Bariatric surgery status Ferritin Today Z.84 - Bariatric surgery status Vitamin D 25-OH Total Today Z98.84 - Bariatric surgery status Insulin Today Z.84 - Bariatric surgery status Lipid Panel Today Z.84 - Bariatric surgery status IRON PROFILE Today Z84 - Bariatric surgery status Comprehensive Met. Panel Today Z98.84 - Bariatric surgery status Vitamin B12 and Folate Today Z98.84 - Bariatric surgery status C Reactive Protein Today Z98.84 - Bariatric surgery status TSH reflex Free T4 Today Z98.84 - Bariatric surgery status
[2025-02-20 09:55] VITALS: BP 131/60; PULSE 71; TEMP 36.2; O2SAT 99; BMI 29.7
--- OUTSIDE RECORDS SUMMARY | 2025-02-20 10:21 | XMS_ITS | Encounter Summary ---
Author Organization [employer] Address [address] [facility] [address] [place] [address] Care Team Providers Care Professional Architect Name Role Phone Simona Ribeiro MD Primary Care Provide r Reason for Visit * Reason Onset Date Comments Home Care Services 12/07/2022 I called the pt regarding a Physician Summary Form, from [facility]. She stated that she does not [...] (Late st Contact Info) Description 12/07/2022 Telephone [facility] MEDICINE [address] [place] [address] Simona Ribeiro MD [address] [place], [place] [phone] Home Care Services (I called the pt regarding a Physician Summary Form, from [facility]. She stated that she does not [...] Care Team (Late st Contact Info) Description 03/07/2025 9:00 AM EDT Office Visit [facility] ADULT DENTAL [address] [place] [address] Nevin Cabezas documented as of this encounter Visit Diagnoses Not on filedocumented in this encounter Care Teams Professional Architect Relationship Specialty Start Date End Date Simona Ribeiro MD [address] [place] [address] PCP - General Family Medicine 07/21/19 [employer] 02/22/24 documented as of this encounter
== END 2025-02-20 10:28 | disposition home or self-care (01) ==
PROVIDERS: PCP Internal Medicine; Visit Provider Physician Assistant Surgical
DX: E66.3 Overweight (principal); Z98.84 Bariatric surgery status; L98.7 Excessive and redundant skin and subcutaneous tissue
CPT/HCPCS: 99214

== ENCOUNTER → 2025-02-20 09:21 | Outpatient (BNVA) | payer MEDICAID, SELFPAY | PROVIDERS: PCP Internal Medicine; Visit Provider Physician Assistant Surgical | DX: E66.3 Overweight (principal); L98.7 Excessive and redundant skin and subcutaneous tissue; Z98.84 Bariatric surgery status; Z68.29 Body mass index [BMI] 29.0-29.9, adult | CPT/HCPCS: 99212 ==

== ENCOUNTER 2025-02-28 08:06 | Outpatient (REF) | payer MEDICAID, SELFPAY ==
--- OUTSIDE RECORDS SUMMARY | 2025-02-28 08:11 | XMS_ITS | Encounter Summary ---
Author Organization [employer] Address [address] [facility] [address] [place] [address] Care Team Providers Care Grain Unloader Name Role Phone Simona Ribeiro MD Primary Care Provide r Encounter Details Date Type Department Care Team (Late Contact Info) Description 02/16/2025 Orders Only [facility] External Provider, [facility] Social History Tobacco Use Types Packs/Day Years [...] as of this encounter Plan of Treatment Not on file documented as of this encounter Procedures Procedure Name Priority Date/Time Associated Diagnosis Comments BI MAMMOGRAM SCREENING TOMOSYNTHESIS BILATERAL Routine 02/16/2025 7:52 AM EDT documented in this encounter Results * BI Mammogram Screening Tomosynthesis Bilateral (02/16/2025 7:52 AM EDT) Anatomical Region Laterality Modality Breast Bilateral Mammography 02/16/2025 7:52 AM EDT Narrative 02/23/2025 5:07 PM EDT ? [facility] ? [address] ?[place] [address] ?[phone] ? Mammography Report ? Signed ? Patient: Neo Grady,Regina ?MR#: ?? [id number] ? : 1980 ?Acct:[id number] ? Age/Sex: 44 / F ?ADM Date: 05/30/25 ? Loc: HO.MAMMO ? Attending Dr: Luis Carlos Adrian MD ? Ordering Physician: Luis Carlos Adrian MD ?Results: 2Beni ?? gn Findings ? Date of Service: 02/16/25 ?Follow Up: 1 Year From Orig ?? inal Mammogram ? Procedure(s): MM tomosynthesis screening BI ?? Accession Number(s): [id number] ? cc: Simona Ribeiro MD; Luis Carlos Adrian MD ? EXAMINATION: ?? MM SCREENING DIGITAL BREAST TOMOSYNTHESIS, BILATERAL ? CLINICAL INFORMATION: ? Screening. Asymptomatic. ? COMPARISON: ?? Mammography: Comparison is made with available priors ? TECHNIQUE: ?? Digital breast mammography with tomosynthesis is performed in both the ?? craniocaudal and mediolateral oblique views along with computer-aided ?? detection (CAD). ? FINDINGS: ?? There are scattered areas of fibroglandular density (ACR BI-RADS breast ?? composition Category b). ?? Bilateral reduction mammoplasty. ?? There are no significant masses, abnormal calcifications, or other ?? abnormalities. ? MM/MM tomosynthesis screening BI ?? IMPRESSION: ?? No mammographic evidence of malignancy. ? ASSESSMENT: ? BI-RADS BI-RADS 2 - Benign Findings ? RECOMMENDATION: ?? Routine annual mammography screening. ? 1 year F/U ? This examination should not preclude the clinical evaluation of a ?? suspicious palpable abnormality. ? This patient's information was entered into a reminder system with a ?? target due date for their next mammogram. ? Electronically signed by: ??Mya Goetz DO ??02/23/2025 05:04 PM EDT ?? RP ? Dictated By: ?Mya Goetz DO ? Signed By: ?<Electronically signed by Mya Goetz, DO in OV> ? 02/23/25 1704 ? DD/ 0752 ? TD/TT: 02/16/25 0805 ? Health And Wellness Sales Consultant: ? Procedure Note Donotuseinterpreter, Image - 02/23/2025 [facility] [address] [place] [address] Mammography Report Signed Patient: Regina WillsonMR#: [id number] : 1980Acct:[id number] Age/Sex: 44 / FADM Date: 02/16/25 Loc: HO.MAMMO Attending Dr: Luis Carlos Adrian MD Ordering Physician: Luis Carlos Adrian MDResults: 2Beni gn Findings Date of Service: 02/16/25Follow Up: 1 Year From Orig inal Mammogram Procedure(s): MM tomosynthesis screening BI Accession Number(s): [id number] cc: Simona Ribeiro MD; Luis Carlos Adrian MD EXAMINATION: MM SCREENING DIGITAL BREAST TOMOSYNTHESIS, BILATERAL CLINICAL INFORMATION: Screening. Asymptomatic. COMPARISON: Mammography: Comparison is made with available priors TECHNIQUE: Digital breast mammography with tomosynthesis is performed in both the craniocaudal and mediolateral oblique views along with computer-aided detection (CAD). FINDINGS: There are scattered areas of fibroglandular density (ACR BI-RADS breast composition Category b). Bilateral reduction mammoplasty. There are no significant masses, abnormal calcifications, or other abnormalities. MM/MM tomosynthesis screening BI IMPRESSION: No mammographic evidence of malignancy. ASSESSMENT: BI-RADS BI-RADS 2 - Benign Findings RECOMMENDATION: Routine annual mammography screening. 1 year F/U This examination should not preclude the clinical evaluation of a suspicious palpable abnormality. This patient's information was entered into a reminder system with a target due date for their next mammogram. Electronically signed by: Mya Goetz DO 02/23/2025 05:04 PM EDT Dictated By: Mya Goetz DO Signed By: <Electronically signed by Mya Goetz DO in OV> 02/23/25 1704 DD/ 0752 TD/TT: 02/16/25 0805 Health And Wellness Sales Consultant: [facility] External Provider IMG BI PROCEDURES Final Result documented in this encounter Visit Diagnoses Not on filedocumented in this encounter Additional Health Concerns Assessment Noted Time PHQ-9 Depression Total Score: 22 025 1:30 PM EST documented as of this encounter Care Teams Grain Unloader Relationship Specialty Start Date End Date Simona Ribeiro MD [address] [place] [address] PCP - General Family Medicine 07/21/19 [employer] 02/22/24 documented as of this encounter
[2025-02-28 08:29] LABS: MANUAL DIFF FLAG NO
--- NOTE | 2025-02-28 08:30 | EMG_ITS ---
Chief complaint: Right hand numbness Reason for referral: Evaluate for Carpal Tunnel Syndrome Referred by: Oscar CHERRY Procedure done: right upper extremity NCS/EMG Precautions and/or limitations: none The limb temperature was monitored continuously and remained between 32-36 degrees C during the performance of the NCS. Nerve Conduction Studies Anti Sensory Summary Table ?Stim Site NR Onset (ms) Norm Onset (ms) Peak (ms) Norm Peak (ms) O-P Amp (?V) Norm O-P Amp Site1 Site2 Delta-0 (ms) Dist (cm) Mario (m/s) Norm Mario (m/s) Right Median Anti Sensory (2nd Digit) Wrist ? 2.3 3.2 <3.6 75.5 >10 Wrist 2nd Digit 2.3 14.0 61 Right Ulnar Anti Sensory (5th Digit) Wrist ? 2.6 3.3 <3.7 19.6 >15.0 Wrist 5th Digit 2.6 14.0 54 Motor Summary Table ?Stim Site NR Onset (ms) Norm Onset (ms) O-P Amp (mV) Norm O-P Amp iAmp (mV) Amp (1st) (%) Site1 Site2 Delta-0 (ms) Dist (cm) Mario (m/s) Norm Mario (m/s) Right Median Motor (Abd Poll Brev) Wrist ? 3.1 <3.9 9.8 >4.5 12.2 100.0 Elbow Wrist 3.5 18.0 51 >45 Elbow ? 6.6 10.3 13.0 105.1 Right Ulnar Motor (Abd Dig Minimi) Wrist ? 2.7 <3.0 8.3 >5 10.5 100.0 B Elbow Wrist 2.9 17.0 59 >45 B Elbow ? 5.6 7.7 10.2 92.8 A Elbow B Elbow 1.3 10.0 77 >45 A Elbow ? 6.9 7.5 10.0 90.4 Comparison Summary Table ?Stim Site NR Peak (ms) Norm Peak (ms) P-T Amp (?V) Site1 Site2 Delta-P (ms) Norm Delta (ms) Right Median/Radial Dig I Comparison (Digit 1 - 10cm) Median ? 2.5 <2.9 72.7 Median Radial 0.4 Radial ? 2.1 <2.8 40.1 EMG ?Side Muscle Nerve Root Ins Act Fibs Psw Amp Dur Poly Recrt Int Pat Comment Right 1stDorInt Ulnar C8-T1 Nml Nml Nml Nml Nml 0 Nml Complete Right FlexCarRad Median C6-7 Nml Nml Nml Nml Nml 0 Nml Complete Right Biceps Musculocut C5-6 Nml Nml Nml Nml Nml 0 Nml Complete Right Triceps Radial C6-7-8 Nml Nml Nml Nml Nml 0 Nml Complete Right Deltoid Axillary C5-6 Nml Nml Nml Nml Nml 0 Nml Complete FINDINGS: All motor and sensory nerves tested showed normal latencies, amplitudes and conduction velocities. Concentric needle EMG was performed in selected muscles of the right upper extremity. Study did not reveal signs of electric abnormalities as shown in the table above. IMPRESSION: 1. This is a normal study. 2. There is no electrodiagnostic evidence for median neuropathy, ulnar neuropathy, brachial plexopathy, or cervical radiculopathy. Thank you for your kind referral. Gianna Dash MD, NAHOMY Board Certified, [place] Board of Physical Medicine and Rehabilitation (ABPMR) Board Certified, [place] Board of Electrodiagnostic Medicine (ABEM) CODIN [address] MTDD
[2025-02-28 09:22] LABS: Basophils Percent Auto 0.8 % (0-2); Eosinophils Absolute Auto 0.1 X10*3/uL (0.0-0.4); Eosinophils Percent Auto 1.5 % (0-4); Hematocrit 43.6 % (37.0-47.0); Hemoglobin 14.3 g/dl (12.0-16.0); Imm Gran Abs Auto 0.03 X10*3/uL (0.00-0.03); Imm Gran Pct Auto 0.6 % (0.0-0.4); Lymphocytes Absolute Auto 2.4 X10*3/uL (1.2-4.9); Lymphocytes Percent Auto 49.3 % (20-40); Mean Corpuscular HGB Conc 32.8 g/dl (31.0-35.0); Mean Corpuscular Hemoglobin 29.3 pg (27.0-33.0); Mean Corpuscular Volume 89.3 fL (80.0-98.0); Mean Platelet Volume 10.3 fL (9.4-12.3); Monocytes Absolute Auto 0.4 X10*3/uL (0.1-1.2); Monocytes Percent Auto 7.9 % (2-11); Neutrophils Absolute Auto 1.9 x10*3/uL (2.0-8.3); Neutrophils Percent Auto 39.9 % (45-73); Platelet Count 302 X10*3/uL (160-400); Red Blood Count 4.88 X10*6/uL (4.20-5.50); Red Cell Distribution Width 12.8 % (11.0-16.0); White Blood Count 4.8 X10*3/uL (4.8-10.8)
[2025-02-28 09:45] LABS: Estimated Average Glucose 111 mg/dL; Hemoglobin A1C 138.2507 umol/L; Hemoglobin A1c % 5.5 % (<6.0); Total Hemoglobin (HGBA1C) 3745.2303 umol/L
[2025-02-28 09:58] LABS: Alanine Aminotransferase 17 U/L (0-31); Albumin Level 4.9 g/dL (3.5-5.0); Alkaline Phosphatase 78 U/L (39-117); Anion Gap 12 (12-20); Aspartate Amino Transferase 20 U/L (5-31); Blood Urea Nitrogen 10 mg/dL (9-16); C Reactive Protein < 0.10 mg/dL (< or = 0.50); Carbon Dioxide 29 mmol/L (22-29); Chloride 106 mmol/L (96-108); Cholesterol 221 mg/dL (<200); Estimated Glomerular Filt Rate > 60; Glucose Random 84 mg/dL (60-115); HDL Cholesterol 50 mg/dL (>40); HIV AB/AG Nonreactive (Nonreactive); HIV Num 1 0.05 S/CO (0.00-0.99); Iron 99 mcg/dL (30-160); LDL Cholesterol Calculated 153 mg/dL (<100); Percent Iron Saturation 38 % (15-50); Potassium 3.6 mmol/L (3.3-5.1); Sodium 143 mmol/L (135-145); Total Iron Binding Capacity 258 mcg/dL (228-428); Total Protein 7.8 g/dL (6.5-8.0); Triglycerides 93 mg/dL (<150); Unsaturated Iron Binding 159 ug/dL; ~HepC Num1 0.14 S/CO (0.00-0.79); ~Hepatitis C Antibody Nonreactive (Nonreactive)
[2025-02-28 10:14] LABS: Folate 8.3 ng/mL (> or = 4.0); Vitamin B12 485 pg/mL (200-900)
[2025-02-28 10:17] LABS: TSH reflex Free T4 1.82 uIU/mL (0.32-4.0); Vitamin D 25-OH Total 23.4 ng/mL (>30)
[2025-02-28 10:36] LABS: Ferritin 322 ng/mL (10-250); Insulin 13 uU/mL (2-29)
[2025-02-28 10:37] LABS: Creatinine Urine 520.55 mg/dL; Microalbum/Creatinine Ratio Ur 9.4 ug/mg cr (<30)
[2025-03-04 13:34] LABS: Zinc 87 mcg/dL (60-130)
[2025-03-04 16:38] LABS: Vitamin A 50 mcg/dL (38-98)
[2025-03-05 14:59] LABS: Vitamin B1 <6 nmol/L (8-30)
== END 2025-02-28 08:07 | disposition home or self-care (01) ==
LOC: HO.NEURO 08:06
PROVIDERS: Absent Provider Physician Assistant Surgical; PCP Internal Medicine; Referring Provider Internal Medicine
DX: Z00.00 Encounter for general adult medical examination without abnormal findings (principal); E11.9 Type 2 diabetes mellitus without complications; Z98.84 Bariatric surgery status; R20.0 Anesthesia of skin; R20.2 Paresthesia of skin
CPT/HCPCS: 36415; 80053; 80061; 82043; 82306; 82570; 82607; 82728; 82746; 83036; 83525; 83540; 84425; 84443; 84590; 84630; 85025; 86140; 86803; 87389; 95886; 95909

== ENCOUNTER → 2025-02-28 08:30 | Outpatient (BNV) | payer MEDICAID, SELFPAY | PROVIDERS: Absent Provider Physician Assistant Surgical; PCP Internal Medicine; Referring Provider Internal Medicine; Visit Provider Physical Medicine & Rehabilitation | DX: R20.0 Anesthesia of skin (principal); R20.2 Paresthesia of skin | CPT/HCPCS: 95886; 95909 ==

== ENCOUNTER 2025-04-18 10:39 | Outpatient (AMB) | payer MEDICAID, SELFPAY ==
--- NOTE | 2025-04-18 10:40 | A.OFFVIS_ITS ---
Intake Visit Reasons: TH: right hand EMG hand review Intake Note: Regina is a 44 year old left hand dominant female who presents today via telehealth and videa for an EMG review of the right hand. IMPRESSION: 1. This is a normal study. 2. There is no electrodiagnostic evidence for median neuropathy, ulnar neur opathy, brachial plexopathy, or cervical radiculopathy. Civil Geotechnical Engineer Required: Yes Civil Geotechnical Engineer Language: Cartoon Animator Services: Civil Geotechnical Engineer Present Civil Geotechnical Engineer Name: Yisel HERZOGA/LM Allergies Penicillins Allergy (Severe, Verified 04/18/25 10:45) Anaphylaxis aspirin Allergy (Intermediate, Verified 04/18/25 10:45) Rash seafood Allergy (Intermediate, Verified 04/18/25 10:45) Anaphylaxis, rash HPI HPI TH: right hand EMG hand review: Details: Regina is a 44 year old left hand dominant female who presents today via telehealth for an EMG review of the right hand. Patient reports that the numbness tingling and pain in the right hand has remained consistent since last evaluation. IMPRESSION: 1. This is a normal study. 2. There is no electrodiagnostic evidence for median neuropathy, ulnar neuropathy, brachial plexopathy, or cervical radiculopathy. [facility] Medical History JANNY (obstructive sleep apnea) Periodic limb movement disorder Hypersomnia Anxiety and depression COVID-19 vaccine series completed BMI 34.0-34.9,adult BMI 39.0-39.9,adult Insomnia Seizures DJD (degenerative joint disease) Stress incontinence GERD (gastroesophageal reflux disease) Hyperlipidemia Sleep apnea with use of continuous positive airway pressure (CPAP) Non-insulin dependent type 2 diabetes mellitus Obesity Well woman exam Ovarian low malignant potential tumor Umbilical hernia Migraine Asthma Morbid obesity Pannus, abdominal Surgical History Hx of tonsillectomy (12/22/23) Hx laparoscopic cholecystectomy S/P laparoscopic sleeve gastrectomy Hx of tubal ligation History of hysterectomy History of bilateral breast reduction surgery Family History Father History of prostate cancer Maternal Aunt History of breast cancer Mother Hypertension Hyperlipidemia Brother Thyroid condition Hypertension Brother No problems noted. Son No problems noted. Daughter No problems noted. Social History Are you a primary health careers instructor to a significant other at home: No Do you presently have visiting nurse or other home services: No Alcohol intake: never Comment: counts correct Patient Tobacco Use Status: Never used Tobacco service: No Female Reproductive History Menstrual Age of Menarche: 11 Review of Systems Const All systems reviewed & are unremarkable except as noted in HPI and below Telehealth Telehealth Telehealth [facility] Location of provider rendering services: practice address Location of patient: address on file Patient Identification confirmed using: Name, : Yes Telehealth method: video Patient verbally consented to treatment: Yes Patient verbally consented to billing insurance company: Yes Patient informed of any privacy concerns related to visit: Yes Assessment & Plan Assessment & Plan (1) Numbness and tingling in right hand: Code(s): R20.0 - Anesthesia of skin; R20.2 - Paresthesia of skin Category: Medical Plan 1. Numbness tingling of right hand Negative EMG Patient is educated about this condition Patient is educated about the typical treatment course Patient is educated there is no acute surgical intervention indicated, as she has a negative EMG If patient continues to experience symptoms in 6 months, she should call us for referral for repeat EMG Patient is amenable to this plan Follow-up as needed Coding Level of Care Code Tele Est Pt Level 3 (28770) Diagnoses Numbness and tingling in right hand R20.0; R20.2
--- OUTSIDE RECORDS SUMMARY | 2025-04-18 11:37 | XMS_ITS | Encounter Summary ---
Author Organization [employer] Address [address] [facility] [address] [place] [address] Care Team Providers Care Inspector Repairer Sandstone Name Role Phone Simona Ribeiro MD Primary Care Provide r Reason for Visit * Reason Onset Date Comments Home Care Services 12/07/2022 I called the pt regarding a Physician Summary Form, from [facility]. She stated that she does not [...] (Late st Contact Info) Description 12/07/2022 Telephone [facility] [address] [place] [address] Simona Ribeiro MD [address] [place], [place] [id number] Home Care Services (I called the pt regarding a Physician Summary Form, from [facility]. She stated that she does not [...] on file documented as of this encounter Visit Diagnoses Not on filedocumented in this encounter Care Teams Inspector Repairer Sandstone Relationship Specialty Start Date End Date Simona Ribeiro MD [address] [place] [address] PCP - General Family Medicine 07/21/19 [place] 02/22/24 documented as of this encounter
--- OUTSIDE RECORDS SUMMARY | 2025-04-18 11:38 | XMS_ITS | Clinical Summary ---
Author Organization [facility] it Address [address] [place] [address] Care Team Providers Care Hematologist Oncologist Name Role Phone Cecilia Zee CORONER TECHNICIAN Primary Care Provider [phone] Surgical History Surgery Date Site/Laterality Comments OVARIAN CYST REMOVAL PROCEDURE: [place] OVARIAN CYSTECTOMY UNI/BI HYSTERECTOMY PROCEDURE: HISTORICAL HYSTERECTOMY BREAST REDUCTION PROCEDURE: [place] BREAST REDUCTION OTHER SURGICAL HISTORY 2007 PROCEDURE: [place] PUNCTURE ASPIRATION CYST BREAST EACH ADDL CYST; [...] Cancer Screening: P ap Smear 07/06/2022 07/06/2019 HIV Screening 04/18/2024 Hepatitis C Screening 04/18/2024 Social Influencers of Health Screening 04/18/2024 COVID-19 Vaccine (2023-2 5 season) 2024 Depression Screening 09/20/2024 Influenza Vaccine (#1) 2025 HIB Vaccines Aged Out No longer [...] 5 Years) and At-Risk Patients (6 to 49 Years) Aged Out No longer eligi ble [...] AM EDT Narrative 07/09/2019 4:44 PM EDT [facility] Diagnostic Imaging Department [address] [place], [place] [id number] Patient: ROBERTO ELIZALDE /Age/Sex: 1980 - 39 - F Unit#: [id number] Location/Status: SPDIMAM/PRE CLI Mnemonic/Ordering Site: [facility] Ordering Physician: REI DELACRUZ CNM [facility] Screening Digital - 07/08/19853 EXAM: [facility] Screening Digital EXAM DATE AND TIME: 07/08/2019 9:20 AM HISTORY: Screening. Reduction mammoplasty in 2007. Paternal grandmother had breast carcinoma. COMPARISON: Previous mammograms done in [place] are not available per the patient. TECHNIQUE: CC and MLO views of both breasts were obtained using full field digital mammography. Bilateral digital breast tomosynthesis was performed in the MLO projection. Computer aided detection with the [employer] 7.2-H was employed. TISSUE DENSITY: a. The [...] Routine screening mammogram BILATERAL in 1 year. 51147, 97636 3342F, 7025F Dictating Physician: ALIS DAY MD Electronically Signed by: ALIS DAY MD Dic Date/Time: 07/09/191642 Sign date/Time: 07/09/191643 Procedure Note SpaAlis mora - 09/08/2022 [facility] Diagnostic Imaging Department [address] [place] [id number] Patient: ROBERTO ELIZALDE /Age/Sex: 1980 - 39 - F Unit#: [id number] Location/Status: SPDIMAM/PRE CLI Mnemonic/Ordering Site: [facility] Ordering Physician: REI DELACRUZ CNM [facility] Screening Digital - 07/08/1954 EXAM: [facility] Screening Digital EXAM DATE AND TIME: 07/08/2019 9:20 AM HISTORY: Screening. Reduction mammoplasty in 2007. Paternal grandmotherhad breast carcinoma. COMPARISON: Previous mammograms done in [place] are not available perthe patient. TECHNIQUE: CC and MLO views of both breasts were obtained using fullfield digital mammography. Bilateral digital breast tomosynthesis was performedin the MLO projection. Computer aided detection with the [employer] 7.2-Hwas employed. TISSUE DENSITY: a. The breasts are [...] Routine screening mammogram BILATERAL in 1 year. 29716, 85414 3342F, 7025F Dictating Physician: ALIS DAY MD Electronically Signed by: ALIS DAY MD Dic Date/Time: 07/09/191642 Sign date/Time: 07/09/191643 Rei Delacruz CNM IMG BI PROCEDURES Final Resul t * Pap smear (07/06/2019) 07/06/2019 Narrative HISTORICAL TESTING LAB RESULTING AGENCY - 07/10/2019 1:05 PM EDT [id number] THINPREP PAP, IMAGED: NEGATIVE FOR SQUAMOUS INTRAEPITHELIAL LESION AND MALIGNANCY . CHANI HOLCOMB(ASCP) (CASE ELECTRONICALLY SIGNED 07 10 2019) RESULT OF APTIMA HIGH RISK HPV ASSAY: HIGH RISK HPV: NEGATIVE (SEROTYPES 16,18,31,33,35,39,45,51,52,56,58,59,66,68) COMPLETED ON 2019-07-07 ADEQUACY: SATISFACTORY ENDOCERVICAL/TRANSFORMATION ZONE COMPONENT PRESENT. SOURCE: THINPREP PAP HPV ANY DX: REFLEX 16 AND 18, CERVICAL, IMAGED CLINICAL INFORMATION: HPV ANY DIAGNOSIS. HYSTERECTOMY WITH CERVICAL STUMP IN PLACE, PAP HX UNKNOWN [Z12.4, Z01.419] Rei Delacruz CNM LAB CYTOLOGY ORDERABLES Final Result HISTORICAL TESTING LAB RESULTING AGENCY from Last 3 Months or Most Recently Relevant to Health Maintenance Care Teams Hematologist Oncologist Relationship Specialty Start Date End Date Cecilia Zee FNP [address] [place] [address] PCP - General Internal Medicine 04/27/19
--- OUTSIDE RECORDS SUMMARY | 2025-04-18 11:38 | XMS_ITS | Clinical Summary ---
Author Organization [facility] Address [address] [place] [address] Care Team Providers Care Tip Inserter Name Role Phone Unavailable Primary Care Provider [...] severity, unspecified whether complicated, unspecified whether persistent ([facility]) Inhale 2 Puffs into the lungs every [...] 89 04/20/2019 10:15 AM EDT Temperature 36.1 C (97 F) 04/20/2019 10:15 AM EDT Respiratory Rate 16 12/09/2018 9:45 AM EDT Oxygen Saturation 97% 04/20/2019 10:15 AM EDT Inhaled Oxygen Concentration - - Weight 94.3 kg (208 lb) 04/20/2019 10:15 AM EDT Height 157.5 cm (5' 2 ) 12/09/2018 9:45 AM EDT Body Mass Index 38.04 12/09/2018 9:45 AM EDT Plan of Treatment Not on file [facility]
== END 2025-04-18 10:53 | disposition home or self-care (01) ==
LOC: HO.HOS 10:39
PROVIDERS: PCP Internal Medicine
DX: R20.0 Anesthesia of skin (principal); R20.2 Paresthesia of skin
CPT/HCPCS: 99213

== ENCOUNTER 2025-04-25 07:42 | Outpatient (AMB) | payer MEDICAID, SELFPAY ==
--- OUTSIDE RECORDS SUMMARY | 2025-04-25 07:45 | XMS_ITS | Clinical Summary ---
Author Organization [facility] Address [address] [place] [address] Care Team Providers Care Tubing Machine Tender Name Role Phone Unavailable Primary Care Provider [...] severity, unspecified whether complicated, unspecified whether persistent ([facility]) Inhale 2 Puffs into the [...] Plan of Treatment Not on file [facility]
--- OUTSIDE RECORDS SUMMARY | 2025-04-25 07:45 | XMS_ITS | Clinical Summary ---
Author Organization [facility] it Address [address] [place] [address] Care Team Providers Care Event Decorator Name Role Phone Cecilia Zee FACE WORKER Primary Care Provider [phone] Surgical History Surgery Date Site/Laterality Comments OVARIAN CYST REMOVAL PROCEDURE: [place] OVARIAN CYSTECTOMY UNI/BI HYSTERECTOMY PROCEDURE: HISTORICAL HYSTERECTOMY BREAST REDUCTION PROCEDURE: [place] BREAST REDUCTION OTHER SURGICAL HISTORY 2007 PROCEDURE: [place] PUNCTURE ASPIRATION CYST BREAST EACH ADDL CYST; [...] AM EDT Narrative 07/09/2019 4:44 PM EDT Diagnostic Imaging Department [address] [place], [place] [id number] Patient: ROBERTO ELIZALDE /Age/Sex: 1980 - 39 - F Unit#: [id number] Location/Status: SPDIMAM/PRE CLI Mnemonic/Ordering Site: [facility] Ordering Physician: REI DELACRUZ CNM [facility] Screening Digital - 07/08/19853 EXAM: [facility] Screening Digital EXAM DATE AND TIME: 07/08/2019 9:20 AM HISTORY: Screening. Reduction mammoplasty in 2007. Paternal grandmother had breast carcinoma. COMPARISON: Previous mammograms done in [place] are not available per the patient. TECHNIQUE: CC and MLO views of both breasts were obtained using full field digital mammography. Bilateral digital breast tomosynthesis was performed in the MLO projection. Computer aided detection with the [employer] 7.2-H was employed. TISSUE DENSITY: a. The [...] Routine screening mammogram BILATERAL in 1 year. 39500, 99864 3342F, 7025F Dictating Physician: ALIS DAY MD Electronically Signed by: ALIS DAY MD Dic Date/Time: 07/09/191642 Sign date/Time: 07/09/191643 Procedure Note SpaAlis mora - 09/08/2022 Diagnostic Imaging Department [address] [place] [address] Patient: ROBERTO ELIZALDE /Age/Sex: 1980 - 39 - F Unit#: [id number] Location/Status: SPDIMAM/PRE CLI Mnemonic/Ordering Site: [facility] Ordering Physician: REI DELACRUZ CNM [facility] Screening Digital - 07/08/1954 EXAM: [facility] Screening Digital EXAM DATE AND TIME: 07/08/2019 9:20 AM HISTORY: Screening. Reduction mammoplasty in 2007. Paternal grandmotherhad breast carcinoma. COMPARISON: Previous mammograms done in [place] are not available perthe patient. TECHNIQUE: CC and MLO views of both breasts were obtained using fullfield digital mammography. Bilateral digital breast tomosynthesis was performedin the MLO projection. Computer aided detection with the [employer] 7.2-Hwas employed. TISSUE DENSITY: a. The breasts [...] Routine screening mammogram BILATERAL in 1 year. 22127, 82152 3342F, 7025F Dictating Physician: ALIS DAY MD Electronically Signed by: ALIS DAY MD Dic Date/Time: 07/09/191642 Sign date/Time: 07/09/191643 Rei Delacruz CNM IMG BI PROCEDURES Final Resul t * Pap smear (07/06/2019) 07/06/2019 Narrative HISTORICAL TESTING LAB RESULTING AGENCY - 07/10/2019 1:05 PM EDT [id number] THINPREP PAP, IMAGED: NEGATIVE FOR SQUAMOUS INTRAEPITHELIAL [...] Recently Relevant to Health Maintenance Care Teams Event Decorator Relationship Specialty Start Date End Date Cecilia Zee FNP [address] [place] [address] PCP - General Internal Medicine 04/27/19
--- NOTE | 2025-04-25 07:48 | MHC.OFFVIS ---
Vital Signs 04/25/25 07:53 Height 52 ft Weight 147 lb BMI 0.3 BP 122/74 Intake Visit Reasons: Annual/DO NOT RS X3 Planning Management It Specialist Required: Yes Planning Management It Specialist Language: Interactive Media Marketing Specialist Services: Planning Management It Specialist Present (in person) Planning Management It Specialist Name: Antoinette COBURN Information Interpreted: non-clinical & clinical Upset Welding Machine Operator: Upset Welding Machine Operator Present (Antoinette COBURN) Accompanied by: Self / Same As Patient Allergies Penicillins Allergy (Severe, Verified 04/25/25 07:55) Anaphylaxis aspirin Allergy (Intermediate, Verified 04/25/25 07:55) Rash seafood Allergy (Intermediate, Verified 04/25/25 07:55) Anaphylaxis, rash Is last menstrual period known: No (Hysterectomy) HPI Comments Details: Presenting for annual exam. No complaints. Last Pap/HPV was negative in 08/10 Last Mammogram was BI-RADS 2 in 02/11, the patient is scheduled for breast MRI in few months for high-risk breast cancer status and being followed up with Dr. Adrian twice E No previous screening colonoscopy PFSH Medical History JANNY (obstructive sleep apnea) Periodic limb movement disorder Hypersomnia Anxiety and depression COVID-19 vaccine series completed BMI 34.0-34.9,adult BMI 39.0-39.9,adult Insomnia Seizures DJD (degenerative joint disease) Stress incontinence GERD (gastroesophageal reflux disease) Hyperlipidemia Sleep apnea with use of continuous positive airway pressure (CPAP) Non-insulin dependent type 2 diabetes mellitus Obesity Well woman exam Ovarian low malignant potential tumor Umbilical hernia Migraine Asthma Morbid obesity Pannus, abdominal Surgical History (Updated 04/25/25 @ 08:14 by Ramesh Maki MD) Hx of tonsillectomy (12/22/23) Hx laparoscopic cholecystectomy S/P laparoscopic sleeve gastrectomy Hx of tubal ligation History of hysterectomy History of bilateral breast reduction surgery Family History Father History of prostate cancer Maternal Aunt History of breast cancer Mother Hypertension Hyperlipidemia Brother Thyroid condition Hypertension Brother No problems noted. Son No problems noted. Daughter No problems noted. Social History Are you a primary care director rn to a significant other at home: No Do you presently have visiting nurse or other home services: No Alcohol intake: never Comment: counts correct Patient Tobacco Use Status: Never used Tobacco service: No Female Reproductive History Menstrual Age of Menarche: 11 Menopause type: surgical Date of Mammogram: 02/16/25 Review of Systems Const All systems reviewed & are unremarkable except as noted in HPI and below Card Reports as per HPI Resp Reports as per HPI GI Reports as per HPI and Reports no additional complaints Reports as per HPI Physical Exam Vital Signs: Last Vital Signs BP 122/74 04/25/25 07:53 BMI result Body Mass Index 0.3 Const General: cooperative, healthy appearing and comfortable Chest Chest palpation & inspection: normal inspection of the chest and normal palpation of entire chest wall Breast/axilla inspection: normal inspection of the breasts and normal inspection of the axillae Breast/axilla palpation: normal palpation of the breasts, normal palpation of the axillae and no axillary lymphadenopathy Resp Effort & Inspection: normal respiratory effort Auscultation: clear to auscultation bilaterally Percussion: percussion normal Cardio Palpation: normal PMI Rate: regular rate Rhythm: regular rhythm Heart sounds: no murmurs and no rubs Peripheral pulses: Peripheral pulses 2+ throughout GI Inspection: Yes normal to inspection Palpation (GI): Soft to palpation, nontender, no guarding, not rigid and No hepatosplenomegaly present Percussion: Yes normal to percussion Auscultation: normal bowel sounds Rectal Exam - Female: deferred General: Yes bladder normal to palpation External Female Exam: No lesion Speculum Exam - Vagina: normal appearance of the vagina, normal palpation, normal vaginal discharge and not erythematous Speculum Exam - Cervix: normal appearance of the cervix and normal palpation Bimanual exam- vagina & uterus: normal bimanual exam, normal palpation, bladder normal to palpation, normal palpation and uterus absent Bimanual Exam- Adnexa, other: normal adnexae, no masses and no tenderness Assessment & Plan Assessment & Plan (1) Well woman exam: Code(s): Z01.419 - Encounter for gynecological examination (general) (routine) without abnormal findings Category: Medical Plan: Cotesting done. Instructions given the patient to schedule next screening Mammogram in 02/12. Counseled the patient about the recommended dietary allowance of 1000 mg of Calcium & 600 IU of vitamin D. Refer to GI for screening colonoscopy The patient was instructed to perform monthly self-breast exams and to schedule an annual exam in a year; All questions answered and the patient verbalized understanding. Instructed the patient to schedule annual exam in a year Orders: Referrals Gastroenterology Referral Z12.11 - Encounter for screening for malignant neoplasm of colon Coding Level of Care Code Est Pt Prev Care 40-64y(77781) Diagnoses Well woman exam Z01.419
[2025-04-25 07:53] VITALS: BP 122/74
== END 2025-04-25 08:20 | disposition home or self-care (01) ==
LOC: HO.HWS 07:43
PROVIDERS: Visit Provider Obstetrics & Gynecology
DX: Z01.419 Encounter for gynecological examination (general) (routine) without abnormal findings (principal)
CPT/HCPCS: 99396; 99459

== ENCOUNTER → 2025-04-25 07:42 | Outpatient (BNVA) | payer MEDICAID, SELFPAY | PROVIDERS: Visit Provider Obstetrics & Gynecology | DX: Z01.419 Encounter for gynecological examination (general) (routine) without abnormal findings (principal); Z91.89 Other specified personal risk factors, not elsewhere classified | CPT/HCPCS: 99396 ==

== ENCOUNTER 2025-05-11 09:16 | Outpatient (AMB) | payer MEDICAID, SELFPAY ==
--- NOTE | 2025-05-11 09:18 | MHC.OFFVIS ---
Vital Signs 05/11/25 09:19 Height 5 ft 2 in BP 127/89 Position Sitting Pulse 62 Intake Visit Reasons: Follow Up Pricing/Signage Team Member Required: Yes Allergies Penicillins Allergy (Severe, Verified 05/11/25 09:23) Anaphylaxis aspirin Allergy (Intermediate, Verified 05/11/25 09:23) Rash seafood Allergy (Intermediate, Verified 05/11/25 09:23) Anaphylaxis, rash Medication List - Last Reconciled 05/11/25 by Vianney Thompson CNP albuterol sulfate 90 mcg/actuation 2 puffs inhalation Q4-6H PRN atorvastatin 20 mg PO DAILY betamethasone dipropionate 0.05% 1 appl topical DAILY PRN bupropion HCl 1 tab PO DAILY buspirone 5 mg PO BID ecxaaxrqqv-tcoqcnxuwtbun-yswb 50-300-40 mg (Fioricet) 1 cap PO Q4-6H PRN bzblyfyqpa-smrwqggbnnbef-nmrd 50-325-40 mg 2 tabs PO DAILY PRN cholecalciferol (vitamin D3) 25 mcg PO DAILY citalopram 20 mg PO DAILY clotrimazole 1% 1 appl topical BID cyclobenzaprine 10 mg PO Q8H divalproex ER (Depakote ER) 500 mg (2 x 250 mg) PO DAILY 90 days gabapentin 300 mg PO BEDTIME hydroxyzine HCl 50 mg PO BID nystatin 1 appl topical QID oxybutynin chloride 5 mg PO DAILY pantoprazole 40 mg PO DAILY polyethylene glycol 3350 17 grams PO DAILY sennosides (senna) 8.6 mg PO DAILY thiamine HCl (vitamin B1) 100 mg PO DAILY tirzepatide (weight loss) (Zepbound) 7.5 mg (0.5 mL) subcut QWEEK tizanidine 4 mg PO BID PRN 30 days HPI Comments Details: 44-year-old woman with depression, asthma, JANNY on CPAP, GERD, and migraine. No change in headaches with increased dose of Depakote. Headaches were happening almost everyday. Pain was bitemporal, throbbing-type, with photophobia, sonophobia, dizziness, and nausea. Butabital as needed helped. Sleep was okay. [facility] Medical History (Updated 05/11/25 @ 09:22 by Vianney Thompson CNP) JANNY (obstructive sleep apnea) Periodic limb movement disorder Hypersomnia Anxiety and depression COVID-19 vaccine series completed BMI 34.0-34.9,adult BMI 39.0-39.9,adult Insomnia Seizures DJD (degenerative joint disease) Stress incontinence GERD (gastroesophageal reflux disease) Hyperlipidemia Sleep apnea with use of continuous positive airway pressure (CPAP) Non-insulin dependent type 2 diabetes mellitus Obesity Well woman exam Ovarian low malignant potential tumor Umbilical hernia Migraine Asthma Morbid obesity Pannus, abdominal Surgical History (Updated 04/25/25 @ 08:14 by Ramesh Maki MD) Hx of tonsillectomy (12/22/23) Hx laparoscopic cholecystectomy S/P laparoscopic sleeve gastrectomy Hx of tubal ligation History of hysterectomy History of bilateral breast reduction surgery Family History Father History of prostate cancer Maternal Aunt History of breast cancer Mother Hypertension Hyperlipidemia Brother Thyroid condition Hypertension Brother No problems noted. Son No problems noted. Daughter No problems noted. Social History Are you a primary healthcare science specialist to a significant other at home: No Do you presently have visiting nurse or other home services: No Alcohol intake: never Comment: counts correct Patient Tobacco Use Status: Never used Tobacco service: No Female Reproductive History Menstrual Age of Menarche: 11 Review of Systems Const Denies chills, Denies daytime sleepiness, Reports difficulty sleeping, Denies fatigue, Denies fever(s), Denies frequent falls, Reports headache(s), Denies increased appetite, Denies poor appetite, Denies snoring, Denies weakness, Denies weight gain and Denies weight loss Eyes Denies loss of vision ENT Denies vertigo, Denies dizziness and Reports headache(s) Card Denies chest pain at rest, Denies chest pain with activity, Denies syncope, Denies leg edema and Denies palpitations Resp Denies snoring GI Denies constipation, Denies heartburn, Denies diarrhea and Denies nausea Denies urinary frequency, Denies urinary incontinence and Denies urinary urgency Musc Denies abnormal gait, Denies numbness and Denies tingling Skin/Breast Denies dry skin and Denies rash Neuro Denies abnormal gait, Denies vertigo, Denies dizziness, Denies syncope, Denies frequent falls, Reports headache(s), Denies lack of coordination, Denies loss of vision, Denies memory loss, Denies numbness, Denies restless legs, Denies seizure-like activity, Denies tingling, Denies paresthesias, Denies tremor(s) and Denies weakness Psych Denies anxiety, Denies depression, Denies auditory hallucinations, Denies memory loss, Denies visual hallucinations and Denies suicidal ideation Endo Denies fatigue and Denies palpitations Physical Exam Const Other: General Appearance:? normal, in no acute distress. Skin:? no rashes, no significant birthmarks. Heart:? S1, S2 normal, no murmurs. Lungs:? clear anteriorly and posteriorly. Extremities:? no edema. Psych:? alert, oriented, cognitive function intact, cooperative with exam. Neuro Other: Mental Status:?Normal attention, orientation, memory and affect.? Cranial Nerves:?Pupils are equal, round and reactive to light. External occular muscles are intact. Visual condon are full. Face is symmetrical. Facial sensations are normal. Tongue is midline. Palate elevates symmetrically. Shoulder shrugging is normal. Hearing to bedside conversation is normal. Sensory Exam:?....? Coordination:?No ataxia,?no titubation.? Gait Exam: Within normal limits. Cerebellar Signs:?Eysxlc-su-mvnw is okay. Extrapyramidal System:?No tremor, rigidity with normal facial expressions.? Pronator Drift:?Not present.? Involuntary Movements:?No tremors seen.? Speech:?Normal.? Results Reviewed Results Reviewed: Baseline PSG at [facility] in Nov 2019: AHI 12.7, desat to 81% CPAP titration/MSLT at [facility] in May 2020: Sleep onset average (5/5 naps) 6.1 min, Rem sleep onset (2/5 naps) 7.8 min. PLMS arousal index: 6.8. EEG at office in 2020: WNL MRI brain WO at [facility] in Oct 2019: WNL. Assessment & Plan Assessment & Plan (1) Migraine: Code(s): G43.909 - Migraine, unspecified, not intractable, without status migrainosus Category: Medical Qualifiers: Migraine type: unspecified Status migrainosus presence: without status migrainosus Intractability: not intractable Qualified Code(s): G43.909 - Migraine, unspecified, not intractable, without status migrainosus Plan: She has tried and failed multiple medications for migraine prophylaxis including topiramate, propranolol, and Depakote. Treatment options discussed, including trying injectable CGRP inhibitor (such as Emgality or Ajovy), but she was not interested at this time and preferred oral medications. Start verapamil ER 120mg 1 tablet daily, use/side effects reviewed. Decrease Depakote ER 250mg 1 tablets at bedtime. Continue taufoegdut-IRTO-isxm 50-325-40mg 2 tablets as needed for headache #10 for 30 days. Start ondansetron 4mg 1 tablet as needed for nausea. Plan Meds tried: Topiramate, propranlol, depakote Medications: New verapamil ER 120 mg PO DAILY 30 tabs 2RF 30 days ondansetron 4 mg PO DAILY PRN 10 tabs 5RF nausea and vomiting 30 days fsfajdsxox-uayrstityqurs-nqrj 50-325-40 mg 2 tabs PO DAILY PRN 10 tabs 5RF headache 30 days Changed From divalproex ER (Depakote ER) 500 mg (2 x 250 mg) PO DAILY 90 days 180 tabs 0RF To divalproex ER (Depakote ER) 250 mg PO BEDTIME 90 tabs 1RF 90 days Discontinued ucwxhohjvw-kzpgmwadrtvyt-muzd 50-300-40 mg (Fioricet) Discontinued Reason: Order 1 cap PO Q4-6H PRN 10 caps 0RF pain Coding Level of Care Code Est Pt Level 4 (95218) Diagnoses Migraine without status migrainosus, not intractable, unspecified migraine type G43.909 Migraine type: unspecified Status migrainosus presence: without status migrainosus Intractability: not intractable
[2025-05-11 09:19] VITALS: BP 127/89; PULSE 62
--- OUTSIDE RECORDS SUMMARY | 2025-05-11 09:22 | XMS_ITS | Clinical Summary ---
Author Organization [facility] it Address [address] [place] [address] Care Team Providers Care Asphalt Roller Person Name Role Phone Cecilia Zee MANAGER ADMINISTRATIVE Primary Care Provider [phone] Surgical History Surgery Date Site/Laterality Comments OVARIAN CYST REMOVAL PROCEDURE: CT OVARIAN CYSTECTOMY UNI/BI HYSTERECTOMY PROCEDURE: HISTORICAL HYSTERECTOMY BREAST REDUCTION PROCEDURE: CT BREAST REDUCTION OTHER SURGICAL HISTORY 2007 PROCEDURE: CT PUNCTURE ASPIRATION CYST BREAST EACH ADDL CYST; [...] AM EDT Narrative 07/09/2019 4:44 PM EDT [facility] Diagnostic Imaging Department [address] [place], [place] [id number] Patient: ROBERTO ELIZALDE /Age/Sex: 1980 - 39 - F Unit#: [id number] Location/Status: SPDIMAM/PRE CLI Mnemonic/Ordering Site: [facility] Ordering Physician: REI DELACRUZ CNM [facility] Screening Digital - 07/08/19853 EXAM: [facility] Screening Digital EXAM DATE AND TIME: 07/08/2019 9:20 AM HISTORY: Screening. Reduction mammoplasty in 2007. Paternal grandmother had breast carcinoma. COMPARISON: Previous mammograms done in [place] are not available per the patient. TECHNIQUE: CC and MLO views of both breasts were obtained using full field digital mammography. Bilateral digital breast tomosynthesis was performed in the MLO projection. Computer aided detection with the [employer] 7.2-H was employed. TISSUE DENSITY: a. The [...] Routine screening mammogram BILATERAL in 1 year. 12849, 92964 3342F, 7025F Dictating Physician: ALIS DAY MD Electronically Signed by: ALIS DAY MD Dic Date/Time: 07/09/191642 Sign date/Time: 07/09/191643 Procedure Note SpaAlis mora - 09/08/2022 [facility] Diagnostic Imaging Department [address] [place] [id number] Patient: ROBERTO ELIZALDE /Age/Sex: 1980 - 39 - F Unit#: [id number] Location/Status: SPDIMAM/PRE CLI Mnemonic/Ordering Site: [facility] Ordering Physician: REI DELACRUZ CNM [facility] Screening Digital - 07/08/1954 EXAM: [facility] Screening Digital EXAM DATE AND TIME: 07/08/2019 9:20 AM HISTORY: Screening. Reduction mammoplasty in 2007. Paternal grandmotherhad breast carcinoma. COMPARISON: Previous mammograms done in [place] are not available perthe patient. TECHNIQUE: CC and MLO views of both breasts were obtained using fullfield digital mammography. Bilateral digital breast tomosynthesis was performedin the MLO projection. Computer aided detection with the [employer] 7.2-Hwas employed. TISSUE DENSITY: a. The breasts [...] Routine screening mammogram BILATERAL in 1 year. 89290, 14516 3342F, 7025F Dictating Physician: ALIS DAY MD Electronically Signed by: ALIS DAY MD Dic Date/Time: 07/09/191642 Sign date/Time: 07/09/191643 Rei Delacruz CNM IMG BI PROCEDURES Final Resul t * Pap smear (07/06/2019) 07/06/2019 Narrative HISTORICAL TESTING LAB RESULTING AGENCY - 07/10/2019 1:05 PM EDT [id number] THINPREP PAP, IMAGED: NEGATIVE FOR SQUAMOUS INTRAEPITHELIAL [...] Recently Relevant to Health Maintenance Care Teams Asphalt Roller Person Relationship Specialty Start Date End Date Cecilia Zee FNP [address] [place] [address] PCP - General Internal Medicine 04/27/19
--- OUTSIDE RECORDS SUMMARY | 2025-05-11 09:22 | XMS_ITS | Encounter Summary ---
Author Organization [employer] Address [address] [place] [address] Care Team Providers Care Electrophonic Engineer Name Role Phone Simona Ribeiro MD Primary Care Provide r Reason for Visit * Reason Onset Date Comments Home Care Services 12/07/2022 I called the pt regarding a Physician Summary Form, from [facility]. She stated that she does not [...] (Late st Contact Info) Description 12/07/2022 Telephone [facility] [address] [place] [address] Simona Ribeiro MD [address] [place], [place] [phone] Home Care Services (I called the pt regarding a Physician Summary Form, from [facility]. She stated that she does not [...] on filedocumented in this encounter Care Teams Electrophonic Engineer Relationship Specialty Start Date End Date Simona Ribeiro MD [address] [place] [address] PCP - General Family Medicine 07/21/19 [employer] 02/22/24 documented as of this encounter
--- OUTSIDE RECORDS SUMMARY | 2025-05-11 09:22 | XMS_ITS | Clinical Summary ---
Author Organization [facility] Address [address] [place] [address] Care Team Providers Care Welt Maker Name Role Phone Unavailable Primary Care Provider [...] severity, unspecified whether complicated, unspecified whether persistent ([facility]) Inhale 2 Puffs into the lungs [...] Plan of Treatment Not on file Insurance [facility]
== END 2025-05-11 09:39 | disposition home or self-care (01) ==
LOC: HO.HSM 09:16
PROVIDERS: PCP Internal Medicine; Visit Provider Registered Nurse
DX: G43.909 Migraine, unspecified, not intractable, without status migrainosus (principal)
CPT/HCPCS: 99214

== ENCOUNTER → 2025-05-11 09:16 | Outpatient (BNVA) | payer MEDICAID, SELFPAY | PROVIDERS: PCP Internal Medicine; Visit Provider Registered Nurse | DX: G43.909 Migraine, unspecified, not intractable, without status migrainosus (principal); G47.33 Obstructive sleep apnea (adult) (pediatric); Z99.89 Dependence on other enabling machines and devices; K21.9 Gastro-esophageal reflux disease without esophagitis | CPT/HCPCS: 99212 ==

== ENCOUNTER 2025-05-30 09:44 | Outpatient (AMB) | payer MEDICAID, SELFPAY ==
--- NOTE | 2025-05-30 09:57 | A.OFFVIS_ITS ---
VS Expanded 05/30/25 10:05 BP 141/79 H Blood Pressure Location Rt brachial Blood Pressure Position Sitting Pulse 69 Pulse Source Pulse Oximeter Temp 96.9 F Temperature Source Temporal Artery Scan Pulse Oximetry 100 Oxygen Delivery Method Room Air Height 5 ft 2 in Weight 143 lb 6.4 oz BMI 26.2 Body Fat % 37.7 Body Fat Mass 54.0 Fat Free Mass 89.2 Visceral Fat Rating 7.0 Body Water % 44.5 Body Water Mass 63.8 Muscle Mass/Score 84.6 Basal Metabolic Rate/Score 1,248 Intake Visit Reasons: (OV) PO LSG 01/06/22 Transit Planning Director Required: Yes Transit Planning Director Name: Jeff Cullen, [id number] Allergies Penicillins Allergy (Severe, Verified 05/30/25 10:01) Anaphylaxis aspirin Allergy (Intermediate, Verified 05/30/25 10:01) Rash seafood Allergy (Intermediate, Verified 05/30/25 10:01) Anaphylaxis, rash Medication List - Last Reconciled 05/30/25 by JO ANN Syed albuterol sulfate 90 mcg/actuation 2 puffs inhalation Q4-6H PRN atorvastatin 20 mg PO DAILY betamethasone dipropionate 0.05% 1 appl topical DAILY PRN bupropion HCl 1 tab PO DAILY buspirone 5 mg PO BID [id number]-fwvy 50-325-40 mg 2 tabs PO DAILY PRN 30 days cholecalciferol (vitamin D3) 25 mcg PO DAILY citalopram 20 mg PO DAILY clotrimazole 1% 1 appl topical BID cyclobenzaprine 10 mg PO Q8H divalproex ER (Depakote ER) 250 mg PO BEDTIME 90 days gabapentin 300 mg PO BEDTIME hydroxyzine HCl 50 mg PO BID nystatin 1 appl topical QID ondansetron 4 mg PO DAILY PRN 30 days oxybutynin chloride 5 mg PO DAILY pantoprazole 40 mg PO DAILY polyethylene glycol 3350 17 grams PO DAILY sennosides (senna) 8.6 mg PO DAILY thiamine HCl (vitamin B1) 100 mg PO DAILY tirzepatide (weight loss) (Zepbound) 7.5 mg (0.5 mL) subcut QWEEK tizanidine 4 mg PO BID PRN 30 days verapamil ER 120 mg PO DAILY 30 days HPI Comments Details: This is a 44 yo female who is s/p LSG 01/06/2022. Weight loss of 19.2lbs since last OV 3mo ago. She weighed 147lbs at an office visit in April. On Zepbound and tolerating well, denies side effects. She also feels that it has helped her anxiety. No complaints of nausea, emesis, abdominal pain. Has reflux, on PPI. Takes senna and Miralax for constipation, otherwise very difficult to have a BM. Present meal plan includes: breakfast- Celebrate 2 scoops lunch- 6f protein, 6f salad/veg dinner- Celebrate 2 scoops taking supplemental vitamins from February bloodwork Exercise routine includes: yoga 5x/week, likes to walk 30 min daily but unsure how many calories Pt reports problems of excess skin of abdomen. Has been experiencing rashes of skin folds, has tried clotrimazole for open areas. At last visit she also requested nystatin powder for summertime. Very itchy- very uncomfortable. She notices moisture collecting in the skin folds, has to clean more frequently; the moisture smells unpleasant. Has to wear a binder/supportive garment at all times to hold the excess skin in place. Typical activities of daily living are more difficult/uncomfortable such as bending over, when the skin gets in the way. It is difficult to lay down on her side as the skin is heavy and pulls. [facility] Medical History (Updated 05/11/25 @ 09:22 by Vianney Thompson CNP) JANNY (obstructive sleep apnea) Periodic limb movement disorder Hypersomnia Anxiety and depression COVID-19 vaccine series completed BMI 34.0-34.9,adult BMI 39.0-39.9,adult Insomnia Seizures DJD (degenerative joint disease) Stress incontinence GERD (gastroesophageal reflux disease) Hyperlipidemia Sleep apnea with use of continuous positive airway pressure (CPAP) Non-insulin dependent type 2 diabetes mellitus Obesity Well woman exam Ovarian low malignant potential tumor Umbilical hernia Migraine Asthma Morbid obesity Pannus, abdominal Surgical History Hx of tonsillectomy (12/22/23) Hx laparoscopic cholecystectomy S/P laparoscopic sleeve gastrectomy Hx of tubal ligation History of hysterectomy History of bilateral breast reduction surgery Family History Father History of prostate cancer Maternal Aunt History of breast cancer Mother Hypertension Hyperlipidemia Brother Thyroid condition Hypertension Brother No problems noted. Son No problems noted. Daughter No problems noted. Social History Are you a primary pharmacy customer care specialist to a significant other at home: No Do you presently have visiting nurse or other home services: No Alcohol intake: never Comment: counts correct Patient Tobacco Use Status: Never used Tobacco service: No Female Reproductive History Menstrual Age of Menarche: 11 Physical Exam Vital Signs: Last Vital Signs Temp 96.9 F 05/30/25 10:05 Pulse 69 05/30/25 10:05 BP 141/79 H 05/30/25 10:05 Pulse Ox 100 05/30/25 10:05 Oxygen Delivery Method Room Air 05/30/25 10:05 BMI result Body Mass Index 26.2 Const General: cooperative, comfortable and no acute distress Orientation/consciousness: patient oriented x3 GI Other: soft, nontender, nondistended, incisions well healed, no hernia, no masses Grade II pannus Neuro General: patient oriented x3 Assessment & Plan Assessment & Plan (1) S/P laparoscopic sleeve gastrectomy: Comment: 01/06/22 Code(s): Z98.84 - Bariatric surgery status Category: Surgical (2) Overweight: Code(s): E66.3 - Overweight Category: Medical (3) Excess skin: Code(s): L98.7 - Excessive and redundant skin and subcutaneous tissue Category: Medical Plan Gave pt [employer] billy info and encouraged her to download the billy in anticipation of upcoming surgery. She has maintained her weight for the last month. Encouraged her to track calories for exercise as well. Goal 2000 bolivar/week. She is aware she will have to stop Zepbound at least 1 week prior to surgery. She is experiencing issues of excess skin of abdomen resulting in frequent painful, itchy, malodorous rashes which are unrelieved by topical antifungals. In addition she is experiencing limitations/discomfort in activities of daily living, including walking, bending. She requires the use of special clothing at all times to try to prevent discomfort but her issues have not been completely relieved by conservative measures. She would benefit from definitive treatment of panniculectomy. Photos taken today, will submit to insurance.
[2025-05-30 10:05] VITALS: BP 141/79; PULSE 69; TEMP 36.1; O2SAT 100; BMI 26.2
--- OUTSIDE RECORDS SUMMARY | 2025-05-30 11:41 | XMS_ITS | Clinical Summary ---
Author Organization [facility] Address [address] [place] [address] Care Team Providers Care Shopping Centre Manager Name Role Phone Unavailable Primary Care Provider [...] severity, unspecified whether complicated, unspecified whether persistent ([facility]) Inhale 2 Puffs into the lungs every [...] Plan of Treatment Not on file [facility]
--- OUTSIDE RECORDS SUMMARY | 2025-05-30 11:41 | XMS_ITS | Encounter Summary ---
Author Organization [employer] Address [address] [facility] [address] [place] [address] Care Team Providers Care Correctional Officer Name Role Phone Simona Ribeiro MD Primary Care Provide r Encounter Details Date Type Department Care Team (Late st Contact Info) Description 06/14/2023 Orders Only [facility] MEDICINE [address] [place], [place] [phone] Nemo Patel Social History Tobacco Use Types [...] EST) Historical Provider HEALTH MAINTENANCE Final Result documented in this encounter Visit Diagnoses Not on filedocumented in this encounter Care Teams Correctional Officer Relationship Specialty Start Date End Date Simona Ribeiro MD [address] [place], [place] [phone] PCP - General Family Medicine 07/21/19 [employer] 02/22/24 documented as of this encounter
--- OUTSIDE RECORDS SUMMARY | 2025-05-30 11:41 | XMS_ITS | Encounter Summary ---
Author Organization [employer] Address [address] [facility] [address] [place] [address] Care Team Providers Care Senior Information Developer Name Role Phone Simona Ribeiro MD Primary Care Provide r Reason for Visit * Reason Onset Date Comments Home Care Services 12/07/2022 I called the pt regarding a Physician Summary Form, from [employer] [facility]. She stated that she does not [...] (Late st Contact Info) Description 12/07/[address] [facility] MEDICINE [address] [place] [address] Simona Ribeiro MD [address] [place], [place] [phone] Home Care Services (I called the pt regarding a Physician Summary Form, from [employer] [facility]. She stated that she does not [...] on filedocumented in this encounter Care Teams Senior Information Developer Relationship Specialty Start Date End Date Simona Ribeiro MD [address] [place] [address] PCP - General Family Medicine 07/21/19 [employer] 02/22/24 documented as of this encounter
--- OUTSIDE RECORDS SUMMARY | 2025-05-30 11:41 | XMS_ITS | Encounter Summary ---
Author Organization [employer] Address [address] [facility] [address] [place] [address] Care Team Providers Care Scholarship Counselor Name Role Phone Simona Ribeiro MD Primary Care Provide r Reason for Visit * Reason Comments Med Refill Encounter Details Date Type Department Care Team (Late st Contact Info) Description 12/22/2022 Refill [facility] MEDICINE [address] [place], [place] [phone] Rishabh Mcnally MD [address] [place] [address] Vaginal candidiasis Social History Tobacco Use Types [...] vagina documented in this encounter Care Teams Scholarship Counselor Relationship Specialty Start Date End Date Simona Ribeiro MD [address] [place] [address] PCP - General Family Medicine 07/21/19 [employer] 02/22/24 documented as of this encounter
--- OUTSIDE RECORDS SUMMARY | 2025-05-30 11:41 | XMS_ITS | Encounter Summary ---
Author Organization [email or web address] Address [address] [facility] [address] [place] [address] Care Team Providers Care Clerk Cashier Name Role Phone Simona Ribeiro MD Primary Care Provide r Encounter Details Date Type Department Care Team (Latest Contact Info) Description 10/04/2019 Abstract [facility] CONVERSIONS Dental, Provider, DDS Social History Tobacco [...] on filedocumented in this encounter Care Teams Clerk Cashier Relationship Specialty Start Date End Date Simona Ribeiro MD [address] [place] [id number] PCP - General Family Medicine 07/21/19 [facility] 02/22/24 documented as of this encounter
--- OUTSIDE RECORDS SUMMARY | 2025-05-30 11:41 | XMS_ITS | Clinical Summary ---
Author Organization [employer] Address [address] [facility] [address] [place] [address] Care Team Providers Care Log Cooker Name Role Phone Simona Ribeiro MD Primary Care Provide r Allergies Active Allergy Reactions Criticality Noted Date Comments Aspirin Hives,Swelling 07/12/2018 Only to ASA, other NSAIDs is ok. Allergic reaction occurred when pt was 12 years old and occurred in [place]. Penicillin G 12/06/2023 Penicillins Anaphylaxis,Hives High 07/12/2018 [...] mg by mouth in the morning. Active mometasone-formot jacek (Dulera 100) 100-5 MCG/ACT inhaler Inhale 2 puffs in the morning and at bedtime. Active metroNIDAZOLE (Metrocream) 0.75 % cream Apply 1 application topically in the morning. 021 Active Fluticasone-Salme terol 250-50 MCG/ACT aerosol powder Inhale 1 puff every 12 (twelve) hours. 022 Active clotrimazole (Lotrimin) 1 % vaginal creamIndications: Vulvovaginal Candidiasis Insert one applicator per vagina at bedtime for 7 nights 45 g 023 Active Blood Glucose Monitoring Suppl (HandleStyle Lite) w/Device kit 1 each in the morning and 1 each at noon. Test blood sugar twice a day. 1 kit 023 Active triamcinolone (Kenalog) 0.1 % ointmentIndicatio ns:Allergic dermatitis APPLY A THIN LAYER TOPICALLY TO THE AFFECTED AREA TWICE A DAY 30 g 1 023 Active butalbital-acetam inophen-caffeine 50-325-40 MG tabletIndications :Other migraine without status migrainosus, not intractable Take 1 tablet by mouth every 4 (four) hours. 20 tablet 1 024 Active atorvastatin (Lipitor) 20 MG tabletIndications :Other hyperlipidemia TAKE 1 TABLET BY MOUTH DAILY 90 tablet 1 024 Active albuterol (Ventolin HFA) 108 (90 Base) MCG/ACT inhalerIndication s:Uncomplicated asthma, unspecified asthma severity, unspecified whether persistent INHALE 2 PUFFS BY MOUTH EVERY 4 TO 6 HOURS NEEDED 18 g 3 024 Active famotidine (Pepcid) 40 MG tabletIndications :Gastroesophageal reflux disease without esophagitis TAKE 1 TABLET BY MOUTH AT BEDTIME 90 tablet 1 024 Active lidocaine (Lidoderm) 5 % patch Apply 1 patch topically if needed each day for moderate pain. 60 patch 5 024 Active ergocalciferol (Vitamin D-2) 1.25 MG (20900 UT) capsuleIndication s:Vitamin D deficiency Take 1 capsule (1.25 mg) by mouth 1 (one) time per week. 12 capsule 024 Active cyclobenzaprine (Flexeril) 10 MG tabletIndications :Acute pain of left shoulder Take 1 tablet (10 mg) by mouth 3 times daily for 10 days. 30 tablet 024 Active ibuprofen 800 MG tabletIndications :Acute pain of left shoulder Take 1 tablet (800 mg) by mouth every 8 (eight) hours if needed for mild pain. 1-2 tabs po tid prn pain with meals 20 tablet Active FreeStyle lancetsIndication s:Prediabetes TEST BLOOD SUGAR TWICE A DAY 100 each 11 Active glucose blood (FREESTYLE LITE) test stripIndications: Prediabetes TEST BLOOD SUGAR TWICE A DAY 100 each Active minoxidil (Loniten) 2.5 MG tablet Take 1 tablet (2.5 mg) by mouth Once per day. 30 tablet 11 2025 Active albuterol (2.5 MG/3ML) 0.083% nebulizer solutionIndicatio ns:Mild intermittent asthma without complication INHALE 1 VIAL BY NEBULIZATION ROUTE THREE TIMES A DAY IF NEEDED 90 mL 3 025 Active metroNIDAZOLE (Metrogel) 0.75 % vaginal gelIndications:Ba cterial Vaginosis Insert one applicator into vagina at bedtime for 7 nights (SWEDISH) 45 g 025 Active gabapentin (Neurontin) 400 MG capsuleIndication s:Fibromyalgia TAKE 1 CAPSULE BY MOUTH THREE TIMES A DAY 90 capsule 3 025 Active Ketotifen Fumarate 0.035 % solutionIndicatio ns:Allergic conjunctivitis of both eyes Administer 1 drop into affected eye(s) every 12 (twelve) hours if needed (apply on each eye as needed). 10 mL 1 025 Active lidocaine (Lidoderm) 5 % patchIndications: Chronic left shoulder pain Apply 1 patch topically Once per day. Remove & discard patch within 12 hours or as directed by MD. 30 patch 1 025 Active triamcinolone (Kenalog) 0.1 % creamIndications: Allergic dermatitis Apply topically if needed in the morning and at bedtime (pain and swelling). 30 g 2 025 Active topiramate (Topamax) 50 MG tabletIndications :Seizure disorder (CMS/HCC),Class 1 obesity with serious comorbidity and body mass index (BMI) of 31.0 to 31.9 in adult, unspecified obesity type Take 1 tablet (50 mg) by mouth at bedtime. 30 tablet 5 025 Active metFORMIN (Glucophage) 500 MG tabletIndications :Prediabetes TAKE 1 TABLET BY MOUTH TWICE A DAY WITH MORNING AND EVENING MEALS 180 tablet 025 Active metFORMIN (Glucophage) 500 MG tabletIndications :Prediabetes TAKE 1 TABLET BY MOUTH TWICE A DAY WITH MORNIGN AND EVENING MEALS 180 tablet 1 025 2024 Discontinued Active Problems Problem Noted Date Diagnosed Date Type 2 diabetes mellitus wit hout complication, without long-term current use of insulin 02/05/2025 Assessment & Plan (02/05/2025 4:44 PM EDT): Diabetes is: controlled - Lab Results Component Value Date HGBA1C 5.7 02/09/2024 HGBA1C 5.7 01/31/2024 HGBA1C 5.6 01/05/2023 - Lab Results Component Value Date CREATININE 0.87 03/08/2024 -Changes: None - Diabetic eye exam: Up-to-date - Diabetic foot exam: Pending - Continue lifestyle modifications - Continue current medications - Follow up: 3 months Encounter for preventive care 02/05/2025 Assessment & Plan (02/05/2025 4:44 PM EDT): See HPI Chronic left shoulder pain 02/05/2025 Right hand pain 11/02/2024 Assessment & Plan [...] 31.9 in adult 11/02/2024 Assessment & Plan (02/05/2025 4:43 PM EDT): Today extensive discussion was done about life style modifications I advise healthy diet (low calorie) and cardiovascular exercise Continue with Zepbound as prescribed Assessment & Plan (12/21/2024 4:33 PM EDT): [...] chronic allergic conjunctivitis 11/01/2023 History of dental restorationism 10/06/2023 Missing teeth, acquired 09/14/2023 Acute bacterial [...] Gastroesophageal reflux disease without esophagi tis 08/24/2018 Assessment & Plan (02/05/2025 4:44 PM EDT): Continue to follow-up with GI Chronic back pain 07/12/2018 Assessment & Plan [...] Encounters Date Type Department Care Team Description 05/03/2025 Refill [facility] [address] [place] [address] Simona Ribeiro MD Prediabetes 04/05/2025 Refill [facility]ED[facility] [address] [place], [place] [phone] Simona Ribeiro MD Seizure disorder ([facility]); Class 1 obesity with serious comorbidity and body mass index (BMI) of 31.0 to 31.9 in adult, unspecified obesity type 04/03/2025 Telephone [facility] ADULT DENTAL [address] [place] [address] Halina Reeves 03/28/2025 Telephone [facility] [address] [place] [address] Leandro, Halina 03/06/2025 Telephone [facility] [address] [place] [address] Nevin Cabezas 02/28/2025 Orders Only GENERIC EXTERNAL DATA DEPARTMENT Provider, Generic External Data from Last 3 Months Immunizations Immunization Administration Dates Next Due Influenza injectable quadriv [...] Sign Reading Time Taken Comments Blood Pressure 114/74 02/05/2025 1:49 PM EDT Pulse 78 02/05/2025 1:49 PM EDT Temperature 36.2 C (97.2 F) 02/05/2025 1:49 PM EDT Respiratory Rate 18 02/05/2025 1:49 PM EDT Oxygen Saturation 100% 01/19/2025 8:41 AM EDT Inhaled Oxygen Concentration - - Weight 77.8 kg (171 lb 9.6 oz) 02/05/2025 1:49 P M EDT Height 160 cm (5' 3 ) 02/05/2025 1:49 PM EDT Body Mass Index 30.4 02/05/2025 1:49 PM EDT Plan of Treatment Health Maintenance Due Date Last Done Comments Diabetes: Foot Exam 1990 Alcohol/Substance Use Screening 1992 Family Planning (PISQ) 1995 HPV Vaccines (1 - 3-dose series) 1995 Hepatitis B Vaccines (1 of 3 - 19+ 3-dose series) 1999 Dental Oral Exam 12/12/2020 06/13/2020, 10/04/2019 Dental Prophylaxis 03/07/2025 09/05/2024, 1 11/15/2022, 06/28/2020, Additional history exists Depression Monitoring 05/02/2025 11/02/2024, 025 COVID-19 Vaccine ( season) 2025 10/23/2022, 09/09/2021, 01/26/2021, Additional history exists Influenza Vaccine (#1) 2025 , 10/16/2022, 09/01/2019, Additional history exists Diabetes: Hemoglobin A1C 08/30/2025 025, 02/09/2024, 01/31/2024, Additional history exists Dental X-Ray: Bitewings 09/06/2025 09/05/20 24, 09/14/2023, 10/04/2019 SDOH Screening 10/20/2025 10/20/2024 Disability Screening 02/05/2026 02/05/2025 Tobacco Screening 02/05/2026 02/05/2025 Mammogram 02/16/2026 02/16/2025, 08/20, 01/17/2024, Additional history exists Diabetes: Urine Protein Screening 02/28/2026 02/28/2025 Lipid Panel 02/28/2026 02/28/2025, 01/18, 01/05/2023, Additional history exists Cervical Cancer Screening 08/18/2026 HPV/Cotest 08/18/2026 08/18/2021 [...] Years) and At-Risk Patients (6 to 49) Years Completed 01/31/2024, 09/29/2018 HIV Screening Completed 02/28/2025 Hepatitis C Screening Completed 02/28/2025 HIB Vaccines Aged Out No longer eligi [...] Procedure Name Priority Date/Time Associated Diagnosis Comments VITAMIN A Routine 02/28/2025 8:27 AM EDT ZINC Routine 02/28/2025 8:27 AM EDT VITAMIN B12/FOLATE, SERUM PANEL Routine 02/28/2025 8:27 AM EDT C-REACTIVE PROTEIN Routine 02/28/2025 8: 27 AM EDT IRON AND TOTAL IRON BINDING CAPACITY Routine 02/28/2025 8:27 AM EDT HEMOGLOBIN A1C Routine 02/28/2025 8:27 AM EDT TSH W/REFLEX TO FT4 Routine 02/28/2025 8 :27 AM EDT Encounter for preventive care VITAMIN D,25-OH,TOTAL,IA Routine 02/28/2025 8:27 AM EDT Encounter for preventive care LIPID PANEL, STANDARD Routine 02/28/2025 8:27 AM EDT Encounter for preventive care HEPATITIS C AB W/REFL TO HCV RNA, QN, PCR Routine 02/28/2025 8:27 AM EDT Encounter for preventive care HIV 1/2 ANTIGEN/ANTIBODY, FOURTH GENERATION W/RFL Routine 02/28/2025 8:27 AM EDT Encounter for preventive care COMPREHENSIVE METABOLIC PANEL Routine 02/28/2025 8:27 AM EDT Encounter for preventive care CBC WITH AUTO DIFFERENTIAL Routine 02/28/2025 8:27 AM EDT Encounter for preventive care ALBUMIN, RANDOM URINE W/CREATININE Routine 02/28/2025 8:20 AM EDT Type 2 diabetes mellitus without complication, without long-term current use of insulin (CMS/HCC) BI MAMMOGRAM SCREENING TOMOSYNTHESIS BILATERAL Routine 02/16/2025 7:52 AM EDT Full PROPHYLAXIS - ADULT Routine 09/05/2024 8:00 AM EST Dental plaque BITEWINGS - 4 RADIOGRAPHIC IMAGES Routine 09/05/2024 8:00 AM EST Dental plaque Missing teeth, acquired INTRAORAL - COMPLETE SERIES OF RADIOGRAPHIC IMAGES Routine 09/14/2023 1:00 PM EST Missing teeth, acquired ZZZ HISTORICAL HPV E6/E7 RFLX DANNY 16 18/45 Routine 08/18/2021 10:17 AM EST HM PAP/HPV Routine 08/18/2021 12:00 AM EST PERIODIC ORAL EVALUATION - ESTABLISHED PATIENT Routine 06/13/2020 12:00 AM EDT from Last 3 Months or Most Recently Relevant to Health Maintenance Results * (ABNORMAL) Vitamin D, 25-Hydroxy, Total, Immunoassay (02/28/2025 8:27 AM EDT) Vitamin D 25-OH Total 23.4(L) >30 ng/mL [facility] Comment: Health Based Reference Values*< 20 ng/mL Vhuipgzsg44-92 ng/mL Insufficient> 30 ng/mL Sufficient*Shayna BUNCH. N Engl J Med. 2007;357:266-280There is no well-established upper level of normal vitamin Dlevels. Some laboratories use 50 ng/mL as an upper limit ofnormal. However, toxicity is patient-dependent and may occurat any level. Careful correlation with the patient'spresentation is necessary and, if there is concern forvitamin D toxicity, treatment should be consideredirrespective of the serum level.Care must be taken in interpreting Vitamin D results fromdifferent laboratories and methodologies. Published datademonstrated that results from patients undergoinghemodialysis may show a negative bias when tested withvarious automated 25-OH vitamin D assays when compared toLC-MS/MS.When testing samples from patients whose predominant form ofVitamin D is Vitamin D2, such as patients receiving VitaminD2 supplementation, results that are subtherapeutic shouldbe confirmed with another method such as LC-MS/MS. Blood Venous blood specimen / Unknown 02/28/2025 8:27 AM EDT 02/28/2025 8:27 AM EDT us Simona Gaston MD LAB BLOOD ORDERABLES Final Result Performing Organization Address [facility]/ZIP Co de Phone Number [facility] [address] [place] [phone] * Vitamin B12 (Cobalamin) and Folate Panel, Serum (02/28/2025 8:27 AM EDT) Vitamin B12 485 200 - 900 pg/mL [facility] Comment:NORMAL 200-900 PG/ML INDETERMINATE 160-199 PG/ML DEFICIENT < 160 PG/ML Folate 8.3 > or = 4.0 ng/mL [facility] Comment:Reference Values:> o r = 4.0 ng/mL< 4.0 ng/mL suggests folate deficiency Methotrexate, aminopterin and folinic acid(leucovorin) are chemotherapeutic agents whose molecularstructures are similar to folate; therefore, the Architectfolate assay cannot be used for patients using these drugs. 02/28/2025 8:27 AM EDT 02/28/2025 8:27 AM EDT us Generic External Data Provider LAB BLOOD ORDERAB LES Final Result Performing Organization Address [facility] Co de Phone Number [facility] [address] [place] [phone] * TSH with Reflex to Free T4 (02/28/2025 8:27 AM EDT) TSH reflex Free T4 1.82 0.32 - 4.0 uIU/mL [facility] Blood Venous blood specimen / Unknown 02/28/2025 8:27 AM EDT 02/28/2025 8:27 AM EDT us Simona Gaston MD LAB BLOOD ORDERABLES Final Result Performing Organization Address City/[facility]/ZIP Co de Phone Number [facility] [address] [place] [phone] * (ABNORMAL) CBC auto differential (02/28/2025 8:27 AM EDT) White Blood Count 4.8 4.8 - 10.8 X10*3/uL [facility] Red Blood Count 4.88 4.20 - 5.50 X10*6/uL [facility] Hemoglobin 14.3 12.0 - 16.0 g/dl [facility] Hematocrit 43.6 37.0 - 47.0 % [facility] Mean Corpuscular Volume 89.3 80.0 - 98.0 fL [facility] Mean Corpuscular Hemoglobin 29.3 27.0 - 33.0 pg [facility] Mean Corpuscular HGB Conc 32.8 31.0 - 35.0 g/dl [facility] Red Cell Distribution Width 12.8 11.0 - 16.0 % [facility] Platelet Count 302 160 - 400 X10*3/uL [facility] Mean Platelet Volume 10.3 9.4 - 12.3 fL [facility] Neutrophils Percent Auto 39.9(L) 45 - 73 % [facility] Imm Gran Pct Auto 0.6(H) 0.0 - 0.4 % [facility] Lymphocytes Percent Auto 49.3(H) 20 - 40 % [facility] Monocytes Percent Auto 7.9 2 - 11 % [facility] Eosinophils Percent Auto 1.5 0 - 4 % [facility] Basophils Percent Auto 0.8 0 - 2 % [facility] NRBC Pct Auto 0.0 0.0 - 0.2 /100WBC [facility] Neutrophils Absolute Auto 1.9(L) 2.0 - 8.3 x10*3/uL [facility] Imm Gran Abs Auto 0.03 0.00 - 0.03 X10*3/uL [facility] Lymphocytes Absolute Auto 2.4 1.2 - 4.9 X10*3/uL [facility] Monocytes Absolute Auto 0.4 0.1 - 1.2 X10*3/uL [facility] Eosinophils Absolute Auto 0.1 0.0 - 0.4 X10*3/uL [facility] Basophils Absolute Auto 0.0 0.0 - 0.2 X10*3/uL [facility] NRBC Abs Auto 0.000 0.0 - 0.012 X10*3/uL [facility] Blood Venous blood specimen / Unknown 02/28/2025 8:27 AM EDT 02/28/2025 8:27 AM EDT us Simona Gaston MD LAB BLOOD ORDERABLES Final Result Performing Organization Address City/[facility]/ZIP Co de Phone Number [facility] [address] [place] [phone] * Hepatitis C Antibody with Reflex to HCV, RNA, Quantitative, Real-Time PCR (02/28/2025 8:27 AM EDT) Hepatitis C Antibody Nonreactive Nonreactive [facility] Comment:Antibodies to HCV no t detected; does not exclude early acuteHCV infection. Blood Venous blood specimen / Unknown 02/28/2025 8:27 AM EDT 02/28/2025 8:27 AM EDT us Simona Gaston MD LAB BLOOD ORDERABLES Final Result Performing Organization Address City/[facility]/ZIP Co de Phone Number [facility] [address] [place] [phone] * Iron And Total Iron Binding Capacity (02/28/2025 8:27 AM EDT) Iron 99 30 - 160 mcg/dL [facility] Total Iron Binding Capacity 258 228 - 428 mcg/dL [facility] Percent Iron Saturation 38 15 - 50 % [facility] Unsaturated Iron Binding 159 ug/dL [facility] 02/28/2025 8:27 AM EDT 02/28/2025 8:27 AM EDT us Generic External Data Provider LAB BLOOD ORDERAB LES Final Result Performing Organization Address [facility]/ZIP Co de Phone Number [facility] [address] [place] [phone] * Zinc (02/28/2025 8:27 AM EDT) Zinc 87 60 - 130 mcg/dL [facility] Comment:This test was develo ped and its analytical performancecharacteristics have been determined by [employer] [place], [place]. It hasnot been cleared or approved by the U.S. Food and DrugAdministration. This assay has been validated pursuantto the CLIA regulations and is used for clinicalpurposes.THIS TEST WAS PERFORMED AT:[employer] [place] [id number] SIMMONS MD,PHD 02/28/2025 8:27 AM EDT 02/28/2025 8:27 AM EDT [employer] External Data Provider LAB BLOOD ORDERAB LES Final Result Performing Organization Address [facility] de Phone Number [facility] [address] [place] [phone] * HIV-1/2 Antigen and Antibodies, Fourth Generation, with Reflexes (02/28/2025 8:27 AM EDT) HIV AB/AG Nonreactive Nonreactive [facility] Comment:HIV-1 p24 Ag and/or HIV-1/HIV-2 Ab not detected.A test result that is nonreactive does not exclude thepossibility of exposure to or infection with HIV-1 and/orHIV-2. Nonreactive results in this assay for individualswith prior exposure to HIV-1 and/or HIV-2 may be due toantigen and antibody levels that are below the limit ofdetection of this assay.The Invenshure HIV Ag/Ab Combo assay result andsupplemental assay results should be interpreted inconjunction with the patient's clinical presentation,history and other laboratory results. If the results areinconsistent with clinical evidence, additional testing issuggested to confirm the result. Blood Venous blood specimen / Unknown 02/28/2025 8:27 AM EDT 02/28/2025 8:27 AM EDT us Simona Gaston MD LAB BLOOD ORDERABLES Final Result Performing Organization Address [facility] Co de Phone Number [facility] [address] [place] [phone] * C-reactive Protein (02/28/2025 8:27 AM EDT) C Reactive Protein <0.10 < or = 0.50 mg/dL [facility] 02/28/2025 8:27 AM EDT 02/28/2025 8:27 AM EDT us Generic External Data Provider LAB BLOOD ORDERAB LES Final Result Performing Organization Address [facility] Co de Phone Number [facility] [address] [place] [phone] * Hemoglobin A1c (02/28/2025 8:27 AM EDT) Hemoglobin A1c 5.5 <6.0 % [facility] Comment:Hemoglobin A1C Refer ence Range Adults: 4.8 - 6.0 % Non diabetic: < 6.0 % Goal: < 7.0 %Additional Action Suggested: > 8.0 %Note: Hemoglobin A1c results are invalid for patients with abnormal amounts of HbF. Blood transfusions may impact the HbA1c concentration in the patient sample. Estimated Average Glucose 111 mg/dL [facility] Comment:eAG = Estimated ave rage glucose which is %A1C expressed asaverage glucose, using the formula of the [id number]-[id number] Glucose study (ADAG), Diabetes Care, Vol.31,#8,Apr. 2007 02/28/2025 8:27 AM EDT 02/28/2025 8:27 AM EDT us Generic External Data Provider LAB BLOOD ORDERAB LES Final Result [facility] [address] [place] [phone] * (ABNORMAL) Lipid Panel, Standard (02/28/2025 8:27 AM EDT) Triglycerides 93 <150 mg/dL [facility] Comment:Desirable Triglyceri de: less than 150 mg/dLBorderline High Triglyceride 150-199 mg/dLHigh Triglyceride: 200-499 mg/dLVery High Triglyceride: greater than or equal to 5OO mg/dL Cholesterol 221(H) <200 mg/dL [facility] Comment:Desirable Cholestero l: less than 200 mg/dLBorderline High Cholesterol: 200-239 mg/dLHigh Cholesterol: greater than 239 mg/dL LDL Cholesterol Calculated 153(H) <100 mg/dL [facility] Comment:Desirable LDL: less than 100 mg/dLNear Optimal/Above Optimal LDL: 110- 129 mg/dLBorderline High LDL: 130-159 mg/dLHigh LDL: 160-189 mg/dLVery High LDL: greater than or equal to 190 mg/dL HDL Cholesterol 50 >40 mg/dL [facility] Comment:Desirable HDL: great er than 40 mg/dL Note: This HDL assay may give artificially low results in patients with liver disease. Blood Venous blood specimen / Unknown 02/28/2025 8:27 AM EDT 02/28/2025 8:27 AM EDT us Simona Gaston MD LAB BLOOD ORDERABLES Final Result [facility] [address] [place] [phone] * Comprehensive Metabolic Panel (02/28/2025 8:27 AM EDT) Sodium 143 135 - 145 mmol/L [facility] Potassium 3.6 3.3 - 5.1 mmol/L [facility] Chloride 106 96 - 108 mmol/L [facility] Carbon Dioxide 29 22 - 29 mmol/L [facility] Anion Gap 12 12 - 20 [facility] Urea Nitrogen (BUN) 10 9 - 16 mg/dL [facility] Creatinine, Serum 0.95 0.5 - 1.4 mg/dL [facility] Estimated Glomerular Filt Rate >60 [facility] Comment:Chronic Kidney Disea se: Estimated GFR < 60 mL/min/1.54x5Gohyfi Kidney Disease: Estimated GFR < 15 mL/min/1.73m2 Glucose 84 60 - 115 mg/dL [facility] Calcium 10.0 8.4 - 10.2 mg/dL [facility] Bilirubin, Total 1.0 0.0 - 1.0 mg/dL [facility] Aspartate Amino Transferase 20 5 - 31 U/L [facility] Alanine Aminotransferase 17 0 - 31 U/L [facility] Total Protein 7.8 6.5 - 8.0 g/dL [facility] Albumin Level 4.9 3.5 - 5.0 g/dL [facility] Alkaline Phosphatase 78 39 - 117 U/L [facility] Blood Venous blood specimen / Unknown 02/28/2025 8:27 AM EDT 02/28/2025 8:27 AM EDT us Simona Gaston MD LAB BLOOD ORDERABLES Final Result [facility] [address] [place] [phone] * Albumin, Random Urine W/Creatinine (02/28/2025 8:20 AM EDT) Creatinine, Urine 520.55 mg/dL [facility] Microalbumin Urine 49.0 mg/L [facility] Microalbum Creatinine Ratio Ur 9.4 <30 ug/mg cr [facility] Comment:Albumin/Creatinine R atio Reference Ranges: Normal: < 30 ug/mg creatinine Microalbuminuria: 30 - 300 ug/mg creatinineClinical Albuminuria: > 300 ug/mg creatinine Urine (Urine, Random) 02/28/2025 8:20 AM EDT 02/28/2025 9:10 AM EDT us Simona Gaston MD LAB URINE ORDERABLES Final Result [facility] [address] [place] [phone] * BI Mammogram Screening Tomosynthesis Bilateral (02/16/2025 7:52 AM EDT) Anatomical Region Laterality Modality Breast Bilateral Mammography 02/16/2025 7:52 AM EDT Narrative 02/23/2025 5:07 PM EDT [address] [place] [address] Mammography Report Signed Patient: Regina Willson MR#: [id number] : 1980 Acct:[id number] Age/Sex: 44 / F ADM Date: 02/16/25 Loc: HO.MAMMO Attending Dr: Luis Carlos Adrian MD Ordering Physician: Luis Carlos Adrian MD Results: 2Beni gn Findings Date of Service: 02/16/25 Follow Up: 1 Year From [facility] Mammogram Procedure(s): MM tomosynthesis screening BI Accession Number(s): [id number] cc: Simona Ribeiro MD; Luis Carlos Adrian [...] Mya Goetz DO 02/23/2025 05:04 PM EDT RP Dictated By: Mya Goetz DO Signed By: <Electronically signed by Mya Goetz DO in OV> 02/23/25 1704 DD/ 0752 TD/TT: 02/16/25 0805 Chief Bank Examiner: Procedure Note Donotuseinterpreter, Image - 02/23/2025 [facility] [address] [place] [address] Mammography Report Signed Patient: Regina WillsonMR#: [id number] : 1980Acct:[id number] Age/Sex: 44 / FADM Date: 02/16/25 Loc: HO.MAMMO Attending Dr: Luis Carlos Adrian MD Ordering Physician: Luis Carlos Adrian MDResults: 2Beni gn Findings Date of Service: 02/16/25Follow Up: 1 Year From [facility] in[facility] Mammogram Procedure(s): MM tomosynthesis screening BI Accession Number(s): [id number] cc: Simona Ribeiro MD; Luis Carlos Adrian [...] 02/23/25 1704 DD/ 0752 TD/TT: 02/16/25 0805 Chief Bank Examiner: [facility] External Provider IMG BI PROCEDURES Final Result * HPV E6/E7 RFLX DANNY 16 18/45 (08/18/2021 10:17 AM EST) HPV 16 RNA TNP [facility] HPV 18/45 RNA [facility]NP [facility] HPV E6 E7 ADD TNP [facility] HPV mRNA E6/E7 rflx Not Detected Not Detected [facility] Comment: Methodology: Jacket Changer-Mediated Amplification This assay detects E6/E7 viral messenger RNA (mRNA) from 14 high-risk HPV types (16,18,31,33,35,39,45,51,52,56,58,59,66,68). The analytical performance characteristics of this assay have been determined by [employer]. The modifications have not been cleared or approved by the FDA. This assay has been validated pursuant to the CLIA regulations and is used for clinical purposes. For additional information, please refer to http://education.Sweet Shop.DueProps/faq/PQF959u1 (This link if provided for information/ educational purposes only.) THIS TEST WAS PERFORMED AT: [facility] [address] [place] [address] [address],[place] [address] JASWINDER PAUL MD 08/18/2021 10:1 7 AM EST Ramesh Maki MD HISTORICAL/NON ORDERABLE LABS Fi nal Result [facility] [address] [place] [address], * Hm Pap Smear (08/18/2021 12:00 AM EST) Historical Provider MD HEALTH MAINTENANCE Final Result from Last 3 Months or Most Recently Relevant to Health Maintenance Insurance [facility] C3 DENTAL-[facility] MEDICAID STAND ADULT Care Teams Log Cooker Relationship Specialty Start Date End Date Simona Ribeiro MD [address] [place] [address] PCP - General Family Medicine 07/21/19 Catapooolt 02/22/24
== END 2025-05-30 10:29 | disposition home or self-care (01) ==
LOC: HO.HBS 09:47
PROVIDERS: PCP Internal Medicine; Visit Provider Physician Assistant Surgical
DX: L98.7 Excessive and redundant skin and subcutaneous tissue (principal); E66.3 Overweight; Z68.26 Body mass index [BMI] 26.0-26.9, adult; Z90.3 Acquired absence of stomach [part of]; Z98.84 Bariatric surgery status
CPT/HCPCS: 99213

== ENCOUNTER → 2025-05-30 09:44 | Outpatient (BNVA) | payer MEDICAID, SELFPAY | PROVIDERS: PCP Internal Medicine; Visit Provider Physician Assistant Surgical | DX: E66.3 Overweight (principal); L98.7 Excessive and redundant skin and subcutaneous tissue; Z98.84 Bariatric surgery status; Z68.26 Body mass index [BMI] 26.0-26.9, adult | CPT/HCPCS: 99212 ==

== ENCOUNTER 2025-07-06 08:38 | Outpatient (AMB) | payer MEDICAID, SELFPAY ==
--- NOTE | 2025-07-06 08:42 | A.OFFVIS_ITS ---
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 Required: Yes Animal Husbandry Teacher Name: #[id number] Allergies Penicillins Allergy (Severe, Verified 07/06/25 08:45) Anaphylaxis aspirin Allergy (Intermediate, Verified 07/06/25 08:45) Rash seafood Allergy (Intermediate, Verified 07/06/25 08:45) Anaphylaxis, rash Medication List - Last Reconciled 07/06/25 by Vianney Thompson CNP albuterol sulfate 90 mcg/actuation 2 puffs inhalation Q4-6H PRN atorvastatin 20 mg PO DAILY betamethasone dipropionate 0.05% 1 appl topical DAILY PRN bupropion HCl 1 tab PO DAILY buspirone 5 mg PO BID moeisjkdcb-ekgvdmdyhmdfm-cvlf 50-325-40 mg 2 tabs PO DAILY PRN 30 days cholecalciferol (vitamin D3) 25 mcg PO DAILY citalopram 20 mg PO DAILY clotrimazole 1% 1 appl topical BID cyclobenzaprine 10 mg PO Q8H divalproex ER (Depakote ER) 250 mg PO BEDTIME 90 days gabapentin 300 mg PO BEDTIME hydroxyzine HCl 50 mg PO BID nystatin 1 appl topical QID ondansetron 4 mg PO DAILY PRN 30 days oxybutynin chloride 5 mg PO DAILY pantoprazole 40 mg PO DAILY polyethylene glycol 3350 17 grams PO DAILY sennosides (senna) 8.6 mg PO DAILY thiamine HCl (vitamin B1) 100 mg PO DAILY tirzepatide (Mounjaro) 2.5 mg (0.5 mL) subcut QWEEK tizanidine 4 mg PO BID PRN 30 days verapamil ER 120 mg PO DAILY 30 days HPI Comments Details: 44-year-old woman with depression, asthma, JANNY on CPAP, GERD, and migraine. Headaches may be a little better with verapamil daily and Depakote at bedtime, but were still happening almost every day. She had bad headache about 2- 3x/week that was relieved with butalbital as needed. For the last three weeks, she was getting needle -like pain and hot sensation to back of head and neck. Sleep was not so good. [facility] Medical History (Updated 05/11/25 @ 09:22 by Vianney Thompson CNP) JANNY (obstructive sleep apnea) Periodic limb movement disorder Hypersomnia Anxiety and depression COVID-19 vaccine series completed BMI 34.0-34.9,adult BMI 39.0-39.9,adult Insomnia Seizures DJD (degenerative joint disease) Stress incontinence GERD (gastroesophageal reflux disease) Hyperlipidemia Sleep apnea with use of continuous positive airway pressure (CPAP) Non-insulin dependent type 2 diabetes mellitus Obesity Well woman exam Ovarian low malignant potential tumor Umbilical hernia Migraine Asthma Morbid obesity Pannus, abdominal Surgical History Hx of tonsillectomy (12/22/23) Hx laparoscopic cholecystectomy S/P laparoscopic sleeve gastrectomy Hx of tubal ligation History of hysterectomy History of bilateral breast reduction surgery Family History Father History of prostate cancer Maternal Aunt History of breast cancer Mother Hypertension Hyperlipidemia Brother Thyroid condition Hypertension Brother No problems noted. Son No problems noted. Daughter No problems noted. Social History Are you a primary palliative care physician to a significant other at home: No Do you presently have visiting nurse or other home services: No Alcohol intake: never Comment: counts correct Patient Tobacco Use Status: Never used Tobacco service: No Female Reproductive History Menstrual Age of Menarche: 11 Review of Systems Const Denies chills, Denies daytime sleepiness, Reports difficulty sleeping, Denies fatigue, Denies fever(s), Denies frequent falls, Reports headache(s), Denies increased appetite, Denies poor appetite, Denies snoring, Denies weakness, Denies weight gain and Denies weight loss Eyes Denies loss of vision ENT Denies vertigo, Denies dizziness and Reports headache(s) Card Denies chest pain at rest, Denies chest pain with activity, Denies syncope, Denies leg edema and Denies palpitations Resp Denies snoring GI Denies constipation, Denies heartburn, Denies diarrhea and Denies nausea Denies urinary frequency, Denies urinary incontinence and Denies urinary urgency Musc Denies abnormal gait, Denies numbness and Denies tingling Skin/Breast Denies dry skin and Denies rash Neuro Denies abnormal gait, Denies vertigo, Denies dizziness, Denies syncope, Denies frequent falls, Reports headache(s), Denies lack of coordination, Denies loss of vision, Denies memory loss, Denies numbness, Denies restless legs, Denies seizure-like activity, Denies tingling, Denies paresthesias, Denies tremor(s) and Denies weakness Psych Denies anxiety, Denies depression, Denies auditory hallucinations, Denies memory loss, Denies visual hallucinations and Denies suicidal ideation Endo Denies fatigue and Denies palpitations Physical Exam Const Other: General Appearance:? normal, in no acute distress. Skin:? no rashes, no significant birthmarks. Heart:? S1, S2 normal, no murmurs. Lungs:? clear anteriorly and posteriorly. Extremities:? no edema. Psych:? alert, oriented, cognitive function intact, cooperative with exam. Neuro Other: Mental Status:?Normal attention, orientation, memory and affect.? Cranial Nerves:?Pupils are equal, round and reactive to light. External occular muscles are intact. Visual condon are full. Face is symmetrical. Facial sensations are normal. Tongue is midline. Palate elevates symmetrically. Shoulder shrugging is normal. Hearing to bedside conversation is normal. Sensory Exam:?....? Coordination:?No ataxia,?no titubation.? Gait Exam: Within normal limits. Cerebellar Signs:?Rpyzms-bm-klce is okay. Extrapyramidal System:?No tremor, rigidity with normal facial expressions.? Pronator Drift:?Not present.? Involuntary Movements:?No tremors seen.? Speech:?Normal.? Results Reviewed Results Reviewed: Baseline PSG at [facility] in Nov 2019: AHI 12.7, desat to 81% CPAP titration/MSLT at [facility] in May 2020: Sleep onset average (5/5 naps) 6.1 min, Rem sleep onset (2/5 naps) 7.8 min. PLMS arousal index: 6.8. EEG at office in 2020: WNL MRI brain WO at [facility] in Oct 2019: WNL. Assessment & Plan Assessment & Plan (1) Migraine: Code(s): G43.909 - Migraine, unspecified, not intractable, without status migrainosus Category: Medical Qualifiers: Migraine type: unspecified Status migrainosus presence: without status migrainosus Intractability: not intractable Qualified Code(s): G43.909 - Migraine, unspecified, not intractable, without status migrainosus Plan: She has tried and failed multiple medications for migraine prophylaxis including topiramate, propranolol, Depakote, and verapamil. She was not interested in trying injectable CGRP inhibitor (such as Emgality or Ajovy). Start amitriptyline 10mg 1 tablet at bedtime, use/side effects reviewed. Continue verapamil ER 120mg 1 tablet daily. Continue Depakote ER 250mg 1 tablets at bedtime. Continue rfzjahkhcj-XBLS-dafu 50-325-40mg 2 tablets as needed for headache #10 for 30 days. Continue ondansetron 4mg 1 tablet as needed for nausea. Plan Meds tried: Topiramate, propranlol, depakote, verapamil, amitriptyline Medications: New amitriptyline 10 mg PO BEDTIME 30 tabs 2RF 30 days Coding Level of Care Code Est Pt Level 4 (37839) Diagnoses Migraine without status migrainosus, not intractable, unspecified migraine type G43.909 Migraine type: unspecified Status migrainosus presence: without status migrainosus Intractability: not intractable
--- OUTSIDE RECORDS SUMMARY | 2025-07-06 09:03 | XMS_ITS | Encounter Summary ---
Author Organization [employer] Address [address] [facility] 7t [place] [address] Care Team Providers Care Dirt Supervisor Name Role Phone Simona Ribeiro MD Primary Care Provide r Encounter Details Date Type Department Care Team ([facility] Contact Info) Description 06/14/2023 Orders Only [facility] MEDICINE [address] [place], [place] [phone] Nemo Patel Social History Tobacco Use Types [...] Care Team (Late st Contact Info) Description 12/25/2025 8:00 AM EDT Office Visit [facility] ADULT DENTAL [address] [place], [place] [phone] Halina Reeves [address] [place], [place] [phone] documented as of this encounter Procedures Procedure Name Priority Date/Time Associated Diagnosis Comments HM PAP/HPV Routine 08/18/2021 12:00 AM EST documented in this encounter Results * Hm Pap Smear (08/18/2021 12:00 AM EST) us Historical Provider HEALTH MAINTENANCE Final Result documented in this encounter Visit Diagnoses Not on filedocumented in this encounter Care Teams Dirt Supervisor Relationship Specialty Start Date End Date Simona Ribeiro MD [address] [place] [phone] PCP - General Family Medicine 07/21/19 Link Trigger 02/22/24 documented as of this encounter
--- OUTSIDE RECORDS SUMMARY | 2025-07-06 09:03 | XMS_ITS | Encounter Summary ---
Author Organization [employer] Address [address] [facility] [address] 7[address] [place] [address] Care Team Providers Care Replenishment Buyer Name Role Phone Simona Ribeiro MD Primary Care Provide r Reason for Visit * Reason Comments Med Refill Encounter Details Date Type Department Care Team (Late st Contact Info) Description 07/02/2025 Refill [facility] MED & PEDS [address] [place], [place] [phone] Simona Ribeiro MD [address] [place] [address] Prediabetes; Allergic conjunctivitis of both eyes; Allergic dermatitis Social History Tobacco Use Types Packs/Day Years [...] Description 12/25/2025 8:00 AM EDT Office Visit [facility] ADULT DENTAL [address] [place] [address] Leandro, Halina [address] [place] [address] documented as of this encounter Visit Diagnoses Diagnosis Prediabetes Other abnormal glucose Allergic conjunctivitis of both eyes Other chronic allergic conjunctivitis Allergic dermatitis Contact dermatitis and other eczema, due to unspecified cause documented in this encounter Additional Health Concerns Assessment Noted Time PHQ-9 Depression Total Score: 22 025 1:30 PM EST documented as of this encounter Care Teams Replenishment Buyer Relationship Specialty Start Date End Date Simona Ribeiro MD [address] [place] [address] PCP - General Family Medicine 07/21/19 Tran[employer] 02/22/24 documented as of this encounter
--- OUTSIDE RECORDS SUMMARY | 2025-07-06 09:03 | XMS_ITS | Encounter Summary ---
Author Organization [employer] Address [address] [facility] 7t [place] [address] Care Team Providers Care Launch Steward Name Role Phone Simona Ribeiro MD Primary Care Provide r Encounter Details Date Type Department Care Team (Latest Contact Info) Description 10/04/[address] [facility] CONVERSIONS Dental, Provider, DDS Social History [...] Description 12/25/2025 8:00 AM EDT Office Visit [facility] ADULT DENTAL [address] [place] [address] Leandro, Halina [address] [place] [address] documented as of this encounter Visit Diagnoses Not on filedocumented in this encounter Care Teams Launch Steward Relationship Specialty Start Date End Date Simona Ribeiro MD [address] [place] [address] PCP - General Family Medicine 07/21/19 Bi[employer] 02/22/24 documented as of this encounter
--- OUTSIDE RECORDS SUMMARY | 2025-07-06 09:03 | XMS_ITS | Encounter Summary ---
Author Organization [employer] Address [address] [facility] 7t [place] [address] Care Team Providers Care Floor Framer Name Role Phone Simona Ribeiro MD Primary Care Provide r Reason for Visit * Reason Onset Date Comments Home Care Services 12/07/2022 I called the pt regarding a Physician Summary Form, from [employer] [facility]. She stated that she does not [...] (Late st Contact Info) Description 12/07/2022 Telephone [facility] MEDICINE [address] [place] [address] Simona Ribeiro MD [address] [place], [place] [phone] Home Care Services (I called the pt regarding a Physician Summary Form, from [employer] [facility]. She stated that she does not [...] Description 12/25/2025 8:00 AM EDT Office Visit [facility] ADULT DENTAL [address] [place] [address] Leandro, Halina [address] [place] [address] documented as of this encounter Visit Diagnoses Not on filedocumented in this encounter Care Teams Floor Framer Relationship Specialty Start Date End Date Simona Ribeiro MD [address] [place] [address] PCP - General Family Medicine 07/21/19 Volve 02/22/24 documented as of this encounter
--- OUTSIDE RECORDS SUMMARY | 2025-07-06 09:03 | XMS_ITS | Clinical Summary ---
Author Organization [facility] Address [address] [place] [address] Care Team Providers Care Computer Network Engineer Name Role Phone Unavailable Primary Care Provider [...] Treatment Not on file Insurance [facility] [facility] [place] [address]
--- OUTSIDE RECORDS SUMMARY | 2025-07-06 09:03 | XMS_ITS | Encounter Summary ---
Author Organization [employer] Address [address] [facility] 7t [place] [address] Care Team Providers Care Administrative Staff Supervisor Name Role Phone Simona Ribeiro MD Primary Care Provide r Reason for Visit * Reason Comments Med Refill Encounter Details Date Type Department Care Team (Late Contact Info) Description 12/22/2022 Refill [facility] MEDICINE [address] [place] [phone] Rishabh Mcnally MD [address] [place] [phone] Vaginal candidiasis Social History Tobacco Use Types [...] Department Care Team (Late Contact Info) Description 12/25/2025 8:00 AM EDT Office Visit [facility] ADULT DENTAL [address] [place], [place] [phone] Halina Reeves [address] [place], [place] [phone] documented as of this encounter Visit Diagnoses Diagnosis Vaginal candidiasis Candidiasis of vulva and vagina documented in this encounter Care Teams Administrative Staff Supervisor Relationship Specialty Start Date End Date Simona Ribeiro MD [address] [place] [address] PCP - General Family Medicine 07/21/19 Caption Data 02/22/24 documented as of this encounter
--- OUTSIDE RECORDS SUMMARY | 2025-07-06 09:03 | XMS_ITS | Clinical Summary ---
Author Organization [facility] it Address [address] [place] [address] Care Team Providers Care Scalder Name Role Phone Cecilia Zee [facility] Primary Care Provider Surgical History Surgery Date [...] Health Maintenance Due Date Last Done Comments Colorectal Cancer Screening: Colonoscopy 1980 DTaP,Tdap,and Td Vaccines (1 - Tdap) 1999 Hepatitis B Vaccines (1 of 3 - 19+ 3-dose series) 1999 HPV Vaccines (1 - 3-dose SCD M series) 2007 Breast Cancer Screening 07/09/2021 07/09/2019 Cervical Cancer Screening: P ap Smear 07/06/2022 07/06/2019 HIV Screening 04/18/2024 Hepatitis C Screening 04/18/2024 Social Influencers of Health Screening 04/18/2024 Depression Screening 09/20/2024 COVID-19 Vaccine (1 - 4-2 5 season) 2025 Influenza Vaccine (#1) 2025 RSV Immunization Adult Patie nts (1 - 1-dose 75+ series) 2055 HIB Vaccines Aged Out No longer eligi [...] [facility] Diagnostic Imaging Department [address] [place] [id number] Patient: ROBERTO ELIZALDE /Age/Sex: 1980 - 39 - F Unit#: [id number] Location/Status: SPDIMAM/PRE CLI Mnemonic/Ordering Site: [facility] Ordering Physician: REI DELACRUZ CNM [facility] Screening Digital - 07/08/1954 EXAM: [facility] Screening Digital EXAM DATE AND TIME: 07/08/2019 9:20 AM HISTORY: Screening. Reduction mammoplasty in 2007. Paternal grandmother had breast carcinoma. COMPARISON: Previous mammograms done in [place] are not available per the patient. TECHNIQUE: CC and MLO views of both breasts were obtained using full field digital mammography. Bilateral digital breast tomosynthesis was performed in the MLO projection. Computer aided detection with the [employer] 7.2-H was employed. TISSUE DENSITY: a. The [...] Routine screening mammogram BILATERAL in 1 year. [id number], [address]89 3342F, 7025F Dictating Physician: ALIS POWER MD Electronically Signed by: ALIS POWER MD Dic Date/Time: 07/09/19 1643 Sign date/Time: 07/09/19 1644 Procedure Note Alis Power - 09/08/2022 [facility] Diagnostic Imaging Department [address] [place] [id number] Patient: TONIOROBERTO D.O.B./Age/Sex: 1980 - 39 - F Unit#: [id number] Location/Status: SPDIMAM/PRE CLI Mnemonic/Ordering Site: [facility] Ordering Physician: REI DELACRUZ CNM [facility] Screening Digital - 07/08/19 - 54 EXAM: [facility] Screening Digital EXAM DATE AND TIME: 07/08/2019 9:20 AM HISTORY: Screening. Reduction mammoplasty in 2007. Paternal grandmotherhad breast carcinoma. COMPARISON: Previous mammograms done in [place] are not available perthe patient. TECHNIQUE: CC and MLO views of both breasts were obtained using fullfield digital mammography. Bilateral digital breast tomosynthesis was performedin the MLO projection. 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 TISSUE DENSITY: a. The breasts are [...] Routine screening mammogram BILATERAL in 1 year. [address], 27984 3342F, 7025F Dictating Physician: ALIS POWER MD Electronically Signed by: ALIS POWER MD Dic Date/Time: 07/09/19 1643 Sign date/Time: 07/09/19 1644 Rei Delacruz CNM IMG BI PROCEDURES Final Resul t * Pap smear (07/06/2019) 07/06/2019 Narrative HISTORICAL TESTING LAB RESULTING AGENCY - 07/10/2019 1:05 PM EDT [id number] THINPREP PAP, IMAGED: NEGATIVE FOR SQUAMOUS INTRAEPITHELIAL [...] Recently Relevant to Health Maintenance Care Teams Scalder Relationship Specialty Start Date End Date Cecilia Zee FNP [address] [place] [address] PCP - General Internal Medicine 04/27/19
--- OUTSIDE RECORDS SUMMARY | 2025-07-06 09:03 | XMS_ITS | Clinical Summary ---
Author Organization [employer] Address [address] [facility] [address] [place] [address] Care Team Providers Care Building Certifier Name Role Phone Simona Ribeiro MD Primary Care Provide r Allergies Active Allergy Reactions Criticality Noted Date Comments Aspirin Hives,Swelling 07/12/2018 Only to ASA, other NSAIDs is ok. Allergic reaction occurred when pt was 12 years old and occurred in [place]. Penicillin G 12/06/2023 Penicillins Anaphylaxis,Hives High 07/12/2018 [...] g 023 Active Blood Glucose Monitoring Suppl (raksulStyle Lite) w/Device kit 1 each in the [...] 024 Active ergocalciferol (Vitamin D-2) 1.25 MG (15947 UT) capsuleIndication s:Vitamin D deficiency Take 1 capsule (1.25 mg) by mouth 1 (one) time per week. 12 capsule 024 Active cyclobenzaprine (Flexeril) 10 MG tabletIndications :Acute pain of left shoulder Take 1 tablet (10 mg) by mouth 3 times daily for 10 days. 30 tablet 024 Active Additional Information Patient not taking.Reported on 06/25/2025 ibuprofen 800 MG tabletIndications :Acute pain of left shoulder Take 1 tablet (800 mg) by mouth every 8 (eight) hours if needed for mild pain. 1-2 tabs po tid prn pain with meals 20 tablet 024 Active minoxidil (Loniten) 2.5 MG tablet Take 1 tablet (2.5 mg) by mouth Once per day. 30 tablet 11 025 2025 Active albuterol (2.5 MG/3ML) 0.083% nebulizer solutionIndicatio ns:Mild intermittent asthma without complication INHALE 1 VIAL BY NEBULIZATION ROUTE THREE TIMES A DAY IF NEEDED 90 mL 3 025 Active metroNIDAZOLE (Metrogel) 0.75 % vaginal gelIndications:Ba cterial Vaginosis Insert one applicator into vagina at bedtime for 7 nights (PASHTO) 45 g 025 Active lidocaine (Lidoderm) 5 % patchIndications: Chronic left shoulder pain Apply 1 patch topically Once per day. Remove & discard patch within 12 hours or as directed by MD. 30 patch 1 025 Active topiramate (Topamax) 50 MG tabletIndications :Seizure disorder (CMS/HCC) (HCC),Class 1 obesity with serious comorbidity and body mass index (BMI) of 31.0 to 31.9 in adult, unspecified obesity type Take 1 tablet (50 mg) by mouth at bedtime. 30 tablet 5 025 Active metFORMIN (Glucophage) 500 MG tabletIndications :Prediabetes TAKE 1 TABLET BY MOUTH TWICE A DAY WITH MORNING AND EVENING MEALS 180 tablet 025 Active gabapentin (Neurontin) 400 MG capsuleIndication s:Fibromyalgia TAKE 1 CAPSULE BY MOUTH THREE TIMES A DAY 90 capsule 3 025 Active FreeStyle lancetsIndication s:Prediabetes TEST BLOOD SUGAR TWICE A DAY 100 each 025 Active FREESTYLE LITE test stripIndications: Prediabetes TEST BLOOD SUGAR TWICE A DAY 100 each 11 025 Active Ketotifen Fumarate 0.035 % solutionIndicatio ns:Allergic conjunctivitis of both eyes Administer 1 drop into affected eye(s) every 12 (twelve) hours if needed (apply on each eye as needed). 10 mL 1 025 Active triamcinolone (Kenalog) 0.1 % creamIndications: Allergic dermatitis Apply topically if needed in the morning and at bedtime (pain and swelling). 30 g 2 025 Active FreeStyle lancetsIndication s:Prediabetes TEST BLOOD SUGAR TWICE A DAY 100 each 11 024 2024 Discontinued glucose blood (FREESTYLE LITE) test stripIndications: Prediabetes TEST BLOOD SUGAR TWICE A DAY 100 each 11 024 2024 Discontinued gabapentin (Neurontin) 400 MG capsuleIndication s:Fibromyalgia TAKE 1 CAPSULE BY MOUTH THREE TIMES A DAY 90 capsule 3 025 2024 Discontinued Ketotifen Fumarate 0.035 % solutionIndicatio ns:Allergic conjunctivitis of both eyes Administer 1 drop into affected eye(s) every 12 (twelve) hours if needed (apply on each eye as needed). 10 mL 1 025 2024 Discontinued(R eorder (will not trigger notification to Pharmacy)) triamcinolone (Kenalog) 0.1 % creamIndications: Allergic dermatitis Apply topically if needed in the morning and at bedtime (pain and swelling). 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 Primary insomnia 06/25/2025 Somnambulism 06/25/2025 Upper respiratory infection 06/25/2025 Type 2 diabetes mellitus wit hout complication, [...] chronic allergic conjunctivitis 11/01/2023 History of dental lutheran 10/06/2023 Missing teeth, acquired 09/14/2023 Acute bacterial conjunctivitis of right eye 03/2023 Acute pain of right shoulder 05/03/2023 Forgetfulness 05/03/2023 Seizure disorder (CMS/HCC) 01/28/2023 Assessment & Plan (11/02/2024 3:29 PM EST): I will refill her medications topiramate 50 mg at bedtime Assessment & Plan (01/31/2024 4:11 PM EDT): Continue to follow with neurology Assessment & Plan (01/28/2023 10:35 AM EDT): Pharmacy will be call to inform about her underline seizure disorder so that psychiatrist who is prescribing meds is aware Fibromyalgia 01/28/2023 Overview (06/25/2025): Outside Source Comment: Last Assessment & Plan: Patient was educated about multidisciplinary approach for her condition, it was advise cardiovascular exercise, maintain hydration, treat anxiety/depression and take medications as directed I increase today her gabapentin to 400mhg Q 8hrs Assessment & Plan (05/04/2023 1:11 PM EDT): [...] 10:34 AM EDT): Please refer to HPI Low back pain 09/01/2022 Allergic dermatitis 09/01/2022 Lumbosacral [...] (low calorie) and cardiovascular exercise Rosacea 09/01/2022 Family history of breast cancer 07/06/2019 Overview (06/25/2025): 06/2019- Baseline Breast mammo is benign Allergic rhinitis 04/20/2019 Dysphagia 04/20/2019 Hyperlipidemia 04/20/2019 [...] Encounters Date Type Department Care Team Description 07/02/2025 Refill [facility] & PEDS [address] [place], [place] [phone] Simona Ribeiro MD Prediabetes; Allergic conjunctivitis of both eyes; Allergic dermatitis 06/28/2025 Refill [facility] [address] [place], [place] [phone] Simona Ribeiro MD Fibromyalgia 06/25/2025 8:45 AM EDT Office Visit [facility] ADULT DENTAL [address] [place] [address] Halina Reeves Dental plaque (Primary Dx); Missing teeth, acquired; Normal oral exam 06/18/2025 Travel 05/03/2025 Refill [facility] MEDICINE [address] [place] [address] Simona Ribeiro MD Prediabetes 04/05/2025 Refill [facility]EDS [address] [place] [address] Simona Ribeiro MD Seizure disorder ([facility]); Class 1 obesity with serious comorbidity and body mass index (BMI) of 31.0 to 31.9 in adult, unspecified obesity type from Last 3 Months Immunizations Immunization Administration [...] Sign Reading Time Taken Comments Blood Pressure 100/70 06/25/2025 8:36 AM EDT Pulse 60 06/25/2025 8:36 AM EDT Temperature 36.2 C (97.2 F) 02/05/2025 1:49 PM EDT Respiratory Rate 18 02/05/2025 1:49 PM EDT Oxygen Saturation 100% 01/19/2025 8:41 AM EDT Inhaled Oxygen Concentration - - Weight 77.8 kg (171 lb 9.6 oz) 02/05/2025 1:49 P M EDT Height 160 cm (5' 3 ) 02/05/2025 1:49 PM EDT Body Mass Index 30.4 02/05/2025 1:49 PM EDT Plan of Treatment Upcoming Encounters Date Type Department Care Team (Late st Contact Info) Description 12/25/2025 8:00 AM EDT Office Visit [facility] ADULT DENTAL [address] [place] [address] Leandro, Halina [address] [place] [address] Health Maintenance Due Date Last Done Comments CT Colonography 1980 Colonoscopy 1980 Colorectal Cancer Screening 1980 FIT DNA/Cologuard 1980 FIT 1980 FOBT 1980 Sigmoidoscopy 1980 Diabetes: Foot Exam 1990 Alcohol/Substance Use Screening 1992 Family Planning (PISQ) 1995 HPV Vaccines (1 - 3-dose series) 1995 Hepatitis B Vaccines (1 of 3 - 19+ 3-dose series) 1999 Depression Monitoring 05/02/2025 11/02/2024, 025 COVID-19 Vaccine ( season) 2025 10/23/2022, 09/09/2021, 01/26/2021, Additional history exists Influenza Vaccine (#1) 2025 , 10/16/2022, 09/01/2019, Additional history exists Diabetes: Hemoglobin A1C 08/30/2025 025, 02/09/2024, 01/31/2024, Additional history exists SDOH Screening 10/20/2025 10/20/2024 Dental Oral Exam 12/25/2025 06/25/2025, , 10/04/2019 Dental Prophylaxis 12/25/2025 06/25/2025, 1 11/06/2023, 09/14/2023, Additional history exists Disability Screening 02/05/2026 02/05/2025 Mammogram 02/16/2026 02/16/2025, 08/20, 01/17/2024, Additional history exists Diabetes: Urine Protein Screening 02/28/2026 02/28/2025 Lipid Panel 02/28/2026 02/28/2025, 01/18, 01/05/2023, Additional history exists Tobacco Screening 06/25/2026 06/25/2025 Dental X-Ray: Bitewings 06/26/2026 06/25/20 25, 09/05/2024, 09/14/2023, Additional history exists Cervical Cancer Screening 08/18/2026 HPV/Cotest 08/18/2026 08/18/2021 Pap Smear 08/18/2026 08/18/2021 Dental X-Ray: Full Mouth 09/15/2026 09/14/2023, 09/20 Eye Exam 11/20/2026 11/20/2024, 03/11/2024, 11/20/2024, Additional history exists DTaP/Tdap/Td Vaccines (2 [...] Procedure Name Priority Date/Time Associated Diagnosis Comments PERIODIC ORAL EVALUATION - ESTABLISHED PATIENT Routine 06/25/2025 8:45 AM EDT 14 INTRAORAL - PERIAPICAL EACH ADDITIONAL RADIOGRAPHIC IMAGE Routine 06/25/2025 8:45 AM EDT INTRAORAL - PERIAPICAL EACH ADDITIONAL RADIOGRAPHIC IMAGE Routine 06/25/2025 8:45 AM EDT Missing teeth, acquired INTRAORAL - PERIAPICAL FIRST RADIOGRAPHIC IMAGE Routine 06/25/2025 8:45 AM EDT Missing teeth, acquired BITEWINGS - 4 RADIOGRAPHIC IMAGES Routine 06/25/2025 8:45 AM EDT Missing teeth, acquired CASE PRESENTATION, DETAILED AND EXTENSIVE TREATMENT PLANNING Routine 06/25/2025 8:45 AM EDT Dental plaque Missing teeth, acquired ORAL HYGIENE INSTRUCTIONS Routine 06/25/2025 8:45 AM EDT Dental plaque Missing teeth, acquired PROPHYLAXIS - ADULT Routine 06/25/2025 8 :45 AM EDT Dental plaque HEPATITIS C AB W/REFL TO HCV RNA, QN, PCR Routine 02/28/2025 8:27 AM EDT Encounter for preventive care HIV 1/2 ANTIGEN/ANTIBODY, FOURTH GENERATION W/RFL Routine 02/28/2025 8:27 AM EDT Encounter for preventive care HEMOGLOBIN A1C Routine 02/28/2025 8:27 AM EDT LIPID PANEL, STANDARD Routine 02/28/2025 8:27 AM EDT Encounter for preventive care ALBUMIN, RANDOM URINE W/CREATININE Routine 02/28/2025 8:20 AM EDT Type 2 diabetes mellitus without complication, without long-term current use of insulin ([facility]) BI MAMMOGRAM SCREENING TOMOSYNTHESIS BILATERAL Routine 02/16/2025 7:52 AM EDT INTRAORAL - COMPLETE SERIES OF RADIOGRAPHIC IMAGES Routine 09/14/2023 1:00 PM EST Missing teeth, acquired ZZZ HISTORICAL HPV E6/E7 RFLX DANNY 16 18/45 Routine 08/18/2021 10:17 AM EST HM PAP/HPV Routine 08/18/2021 12:00 AM EST from Last 3 Months or Most Recently Relevant to Health Maintenance Results * Hepatitis C Antibody with Reflex to HCV, RNA, Quantitative, Real-Time PCR (02/28/2025 8:27 AM EDT) Hepatitis C Antibody Nonreactive Nonreactive [facility] Comment:Antibodies to HCV no t detected; does not exclude early acuteHCV infection. Blood Venous blood specimen / Unknown 02/28/2025 8:27 AM EDT 02/28/2025 8:27 AM EDT us Simona Gaston MD LAB BLOOD ORDERABLES Final Result [facility] [address] [place] [phone] * HIV-1/2 Antigen and Antibodies, Fourth Generation, with Reflexes (02/28/2025 8:27 AM EDT) HIV AB/AG Nonreactive Nonreactive [facility] Comment:HIV-1 p24 Ag and/or HIV-1/HIV-2 Ab not detected.A test result that is nonreactive does not exclude thepossibility of exposure to or infection with HIV-1 and/orHIV-2. Nonreactive results in this assay for individualswith prior exposure to HIV-1 and/or HIV-2 may be due toantigen and antibody levels that are below the limit ofdetection of this assay.The [employer] HIV Ag/Ab Combo assay result andsupplemental assay results should be interpreted inconjunction with the patient's clinical presentation,history and other laboratory results. If the results areinconsistent with clinical evidence, additional testing issuggested to confirm the result. Blood Venous blood specimen / Unknown 02/28/2025 8:27 AM EDT 02/28/2025 8:27 AM EDT us Simona Gaston MD LAB BLOOD ORDERABLES Final Result Performing Organization Address [facility]/ZIP Co de Phone Number [facility] [address] [place] [phone] * Hemoglobin A1c (02/28/2025 8:27 AM EDT) Hemoglobin A1c 5.5 <6.0 % [facility] Comment:Hemoglobin A1C Refer ence Range Adults: 4.8 - 6.0 % Non diabetic: < 6.0 % Goal: < 7.0 %Additional Action Suggested: > 8.0 %Note: Hemoglobin A1c results are invalid for patients with abnormal amounts of HbF. Blood transfusions may impact the HbA1c concentration in the patient sample. Estimated Average Glucose 111 mg/dL [facility] Comment:eAG = Estimated ave rage glucose which is %A1C expressed asaverage glucose, using the formula of the D1B-IurcfmoNsgtlqa Glucose study (ADAG), Diabetes Care, Vol.31,#8,Apr. 2007 02/28/2025 8:27 AM EDT 02/28/2025 8:27 AM EDT us Generic External Data Provider LAB BLOOD ORDERAB LES Final Result Performing Organization Address [facility]/ZIP Co de Phone Number [facility] [address] [place] [phone] * (ABNORMAL) Lipid Panel, Standard (02/28/2025 8:27 AM EDT) Triglycerides 93 <150 mg/dL [facility] Comment:Desirable Triglyceri de: less than 150 mg/dLBorderline High Triglyceride 150-199 mg/dLHigh Triglyceride: 200-499 mg/dLVery High Triglyceride: greater than or equal to 5OO mg/dL Cholesterol 221(H) <200 mg/dL [facility] Comment:Desirable Cholestero l: less than 200 mg/dLBorderline High Cholesterol: 200-239 mg/dLHigh Cholesterol: greater than 239 mg/dL LDL Cholesterol Calculated 153(H) <100 mg/dL [facility] Comment:Desirable LDL: less than 100 mg/dLNear Optimal/Above Optimal LDL: 110- 129 mg/dLBorderline High LDL: 130-159 mg/dLHigh LDL: 160-189 mg/dLVery High LDL: greater than or equal to 190 mg/dL HDL Cholesterol 50 >40 mg/dL [facility] Comment:Desirable HDL: great er than 40 mg/dL Note: This HDL assay may give artificially low results in patients with liver disease. Blood Venous blood specimen / Unknown 02/28/2025 8:27 AM EDT 02/28/2025 8:27 AM EDT us Simona Gaston MD LAB BLOOD ORDERABLES Final Result Performing Organization Address City/[facility] Co de Phone Number [facility] [address] [place] [phone] * Albumin, Random Urine W/Creatinine (02/28/2025 8:20 AM EDT) Creatinine, Urine 520.55 mg/dL [facility] Microalbumin Urine 49.0 mg/L [facility] Microalbum Creatinine Ratio Ur 9.4 <30 ug/mg cr [facility] Comment:Albumin/Creatinine R atio Reference Ranges: Normal: < 30 ug/mg creatinine Microalbuminuria: 30 - 300 ug/mg creatinineClinical Albuminuria: > 300 ug/mg creatinine Urine (Urine, Random) 02/28/2025 8:20 AM EDT 02/28/2025 9:10 AM EDT us Simona Gaston MD LAB URINE ORDERABLES Final Result Performing Organization Address City/[facility] Co de Phone Number [facility] [address] [place] [phone] * BI Mammogram Screening Tomosynthesis Bilateral (02/16/2025 7:52 AM EDT) Anatomical Region Laterality Modality Breast Bilateral Mammography 02/16/2025 7:52 AM EDT Narrative 02/23/2025 5:07 PM EDT [facility] [address] [place] [address] Mammography Report Signed Patient: Regina Willson MR#: [id number] : 1980 Acct:[id number] Age/Sex: 44 / F ADM Date: 02/16/25 Loc: [facility] Attending Dr: Luis Carlos Adrian MD Ordering Physician: Luis Carlos Adrian MD Results: 2Beni gn Findings Date of Service: 02/16/25 Follow Up: 1 Year From Orig inal Mammogram Procedure(s): MM tomosynthesis screening BI Accession Number(s): [id number] cc: Simona Ribeiro MD; Luis Carlos Adrian [...] DO 02/23/2025 05:04 PM EDT Dictated By: Tyminski,Mya DO Signed By: <Electronically signed by Mya Goetz DO in OV> 02/23/25 1704 DD/ 0752 TD/TT: 02/16/25 0805 Commercial Hvac Service Technician: Procedure Note Donotgasperinterpreter, Image - 02/23/2025 [facility] [address] [place], [place] [address] Mammography Report Signed Patient: Regina WillsonMR#: [id number] : 1980Acct:[id number] Age/Sex: 44 / FADM Date: 02/16/25 Loc: HO.MAMMO Attending Dr: Luis Carlos Adrian MD Ordering Physician: Luis Carlos Adrian MDResults: 2Beni gn Findings Date of Service: 02/16/25Follow Up: 1 Year From Orig inal Mammogram Procedure(s): MM tomosynthesis screening BI Accession Number(s): [id number] cc: Simona Ribeiro MD; Luis Carlos Adrian [...] 02/23/25 1704 DD/ 0752 TD/TT: 02/16/25 0805 Commercial Hvac Service Technician: [facility] External Provider IMG BI PROCEDURES Final Result * HPV E6/E7 RFLX DANNY 16 18/45 (08/18/2021 10:17 AM EST) HPV 16 RNA [facility] HPV 18/45 RNA [facility] HPV E6 E7 ADD [facility] HPV mRNA E6/E7 rflx Not Detected Not Detected [facility] Comment: Methodology: [employer] Agent-Mediated Amplification This assay detects E6/E7 viral messenger RNA (mRNA) from 14 high-risk HPV types (16,18,31,33,35,39,45,51,52,56,58,59,66,68). The analytical performance characteristics of this assay have been determined by [employer]. The modifications have not been cleared or approved by the FDA. This assay has been validated pursuant to the CLIA regulations and is used for clinical purposes. For additional information, please refer to http://education.Vision Critical/faq/TQZ432i1 (This link if provided for information/ educational purposes only.) THIS TEST WAS PERFORMED AT: [employer] [address] [place] [address],[place] [phone] JASWINDER PAUL MD 08/18/2021 10:1 7 AM EST Ramesh Maki MD HISTORICAL/NON ORDERABLE LABS Fi nal Result [facility] [address] * Hm Pap Smear (08/18/2021 12:00 AM EST) Historical Provider HEALTH MAINTENANCE Final Result from Last 3 Months or Most Recently Relevant to Health Maintenance Insurance [place] [facility]ICA[facility] STAND ADULT Care Teams Building Certifier Relationship Specialty Start Date End Date Simona Ribeiro MD [address] [place] [phone] PCP - General Family Medicine 07/21/19 [employer] 02/22/24
== END 2025-07-06 09:00 | disposition home or self-care (01) ==
LOC: HO.HSM 08:39
PROVIDERS: PCP Internal Medicine; Visit Provider Registered Nurse
DX: G43.909 Migraine, unspecified, not intractable, without status migrainosus (principal)
CPT/HCPCS: 99214

== ENCOUNTER → 2025-07-06 08:38 | Outpatient (BNVA) | payer MEDICAID, SELFPAY | PROVIDERS: PCP Internal Medicine; Visit Provider Registered Nurse | DX: G43.909 Migraine, unspecified, not intractable, without status migrainosus (principal) | CPT/HCPCS: 99212 ==

== ENCOUNTER 2025-07-11 09:09 | Outpatient (AMB) | payer MEDICAID, SELFPAY ==
--- NOTE | 2025-07-11 13:55 | A.OFFVIS_ITS ---
VS Expanded 07/11/25 14:02 Height 5 ft 2 in Weight 140 lb BMI 25.6 Intake Visit Reasons: TV Pre Op Panni 07/24/25 *POLEYARD SUPERVISOR* Sales Engagement Executive Required: Yes Sales Engagement Executive Services: Sales Engagement Executive Present Information Interpreted: clinical only Allergies Penicillins Allergy (Severe, Verified 07/11/25 13:55) Anaphylaxis aspirin Allergy (Intermediate, Verified 07/11/25 13:55) Rash seafood Allergy (Intermediate, Verified 07/11/25 13:55) Anaphylaxis, rash Medication List - Last Reconciled 07/11/25 by El Fisher MD albuterol sulfate 90 mcg/actuation 2 puffs inhalation Q4-6H PRN amitriptyline 10 mg PO BEDTIME 30 days atorvastatin 20 mg PO DAILY betamethasone dipropionate 0.05% 1 appl topical DAILY PRN bupropion HCl 1 tab PO DAILY buspirone 5 mg PO BID mozlywkzaa-ubcitrjapvaob-ajbc 50-325-40 mg 2 tabs PO DAILY PRN 30 days cholecalciferol (vitamin D3) 25 mcg PO DAILY ciprofloxacin HCl (Cipro) 500 mg PO Q12H citalopram 20 mg PO DAILY clotrimazole 1% 1 appl topical BID cyclobenzaprine 10 mg PO Q8H divalproex ER (Depakote ER) 250 mg PO BEDTIME 90 days docusate sodium (Colace) 100 mg PO DAILY gabapentin 300 mg PO BEDTIME hydroxyzine HCl 50 mg PO BID nystatin 1 appl topical QID ondansetron 4 mg PO DAILY PRN 30 days ondansetron 4 mg PO Q12H oxybutynin chloride 5 mg PO DAILY sennosides (senna) 8.6 mg PO DAILY thiamine HCl (vitamin B1) 100 mg PO DAILY tirzepatide (Mounjaro) 2.5 mg (0.5 mL) subcut QWEEK tizanidine 4 mg PO BID PRN 30 days verapamil ER 120 mg PO DAILY 30 days HPI HPI TV Pre Op Panni 07/24/25 *POLEYARD SUPERVISOR*: Details: Start time: 13.50am, End time: 2.20pm ?I spent 25 minutes speaking with the patient on the phone plus an additional 5 minutes reviewing and updating records for a total of 30 minutes HPI Comments Details: Overall weight loss: 71lbs, or 33.65% TBWL Is doing one Celebrate protein shake (2 scoops in 12oz almond milk), 3 meals per day including soups PFSH Medical History (Updated 05/11/25 @ 09:22 by Vianney Thompson CNP) JANNY (obstructive sleep apnea) Periodic limb movement disorder Hypersomnia Anxiety and depression COVID-19 vaccine series completed BMI 34.0-34.9,adult BMI 39.0-39.9,adult Insomnia Seizures DJD (degenerative joint disease) Stress incontinence GERD (gastroesophageal reflux disease) Hyperlipidemia Sleep apnea with use of continuous positive airway pressure (CPAP) Non-insulin dependent type 2 diabetes mellitus Obesity Well woman exam Ovarian low malignant potential tumor Umbilical hernia Migraine Asthma Morbid obesity Pannus, abdominal Surgical History Hx of tonsillectomy (12/22/23) Hx laparoscopic cholecystectomy S/P laparoscopic sleeve gastrectomy Hx of tubal ligation History of hysterectomy History of bilateral breast reduction surgery Family History Father History of prostate cancer Maternal Aunt History of breast cancer Mother Hypertension Hyperlipidemia Brother Thyroid condition Hypertension Brother No problems noted. Son No problems noted. Daughter No problems noted. Social History Are you a primary child care leader to a significant other at home: No Do you presently have visiting nurse or other home services: No Alcohol intake: never Comment: counts correct Patient Tobacco Use Status: Never used Tobacco service: No Female Reproductive History Menstrual Age of Menarche: 11 Telehealth Telehealth Telehealth Platform: Telephone Location of provider rendering services: practice address Location of patient: address on file Patient Identification confirmed using: Name, : Yes Telehealth method: voice only Patient verbally consented to treatment: Yes Patient verbally consented to billing insurance company: Yes Patient informed of any privacy concerns related to visit: Yes Minutes spent on Phone/Video with Pt.: 30 Assessment & Plan Assessment & Plan (1) Excess skin: Code(s): L98.7 - Excessive and redundant skin and subcutaneous tissue Category: Medical Plan 1. Plan for panniculectomy. Risks of infection, bleeding, asymmetry, wound dehiscence and blood clots were discussed with the patient. 2. You will have a drain the abdomen that may stay a few weeks before it may be removed 3. You will need to be doing sponge baths the first 1-2 weeks. No showers. You need to have help at home to get you up and limit your activities as much as possible for at least the 4-6 weeks after surgery 4. We will arrange for a visiting nurse to come at home to help you with dressing changes and send me pictures of the procedures. We will send at your home supplies for the dressing changes. 5. Change nutritional plan to ONE Celebrate shake (HALF scoop in 8oz almond milk) at 7am-9am, one Fit Crunch protein bar at 10am-12pm, another Celebrate shake (HALF scoop in 8oz almond milk) at 1pm-3pm, another Fit [employer]ch protein bar at 4pm-6pm, meal at 7pm (4 forks of protein and 4 forks of salad or vegetables). If needed, do another HALF Fit Crunch protein bar at 9pm-10pm if you feel hungry. This will improve weight loss and healing after surgery. 6. Continue all vitamins. Do not take any medications the day of surgery. 7. Stop Cyclobezaprine and Gabapentin as of tomorrow 07/12/25. Stop also the Mounjaro no later than 07/17/2025. 8. Do blood work not fasting any day between Wednesday07/16/25 and Wednesday07/20/25 and bead picker the antibiotic prescription from your pharmacy 9. Risks and complications were discussed the possibility of bleeding that may require transfusion, loss of the umbilicus, wound dehiscence or infection, dog ears , flap asymmetry. We also discussed the importance of strict avoidance of weight lifting. 10. Avoid aspirin, motrin, ibuprofen, Aleve, Advil, Naproxyn. Only Tylenol is OK Orders: Orders Comprehensive Met. Panel Today Z01.818 - Encounter for other preprocedural examination Complete Blood Count Auto Diff Today Z01.818 - Encounter for other preprocedural examination Partial Thromboplastin Time Today Z01.818 - Encounter for other preprocedural examination Type and Screen Today Z01.818 - Encounter for other preprocedural examination Prothrombin Time INR Today Z01.818 - Encounter for other preprocedural examination Medications: New docusate sodium (Colace) 100 mg PO DAILY 90 caps 0RF K59.00 - Constipation, unspecified ondansetron Only take one every 12 hours as needed if you have nausea 4 mg PO Q12H 20 tabs 0RF nausea and vomiting R11.0 - Nausea ciprofloxacin HCl (Cipro) 500 mg PO Q12H 60 tabs 2RF M79.3 - Panniculitis, unspecified
[2025-07-11 14:02] VITALS: BMI 25.6
== END 2025-07-11 14:21 | disposition home or self-care (01) ==
LOC: HO.HBS 09:09
PROVIDERS: PCP Internal Medicine; Visit Provider Surgery
DX: L98.7 Excessive and redundant skin and subcutaneous tissue (principal); E66.3 Overweight; Z68.25 Body mass index [BMI] 25.0-25.9, adult
CPT/HCPCS: 99214

== ENCOUNTER 2025-07-17 09:25 | Outpatient (AMB) | payer MEDICAID, SELFPAY ==
--- NOTE | 2025-07-17 09:48 | MHC.OFFVIS ---
Vital Signs 07/17/25 09:58 Height 5 ft 2 in Weight 143 lb BMI 26.2 BP 120/78 Blood Pressure Location Lt brachial Position Sitting Intake Visit Reasons: 6 month breast exam Intake Note: Patient is seen in office for 6 month follow up visit, breast examination. Patient c/o: denies any concerns mm: 02/16/25 Business Law Instructor Required: No Manager Operations: Manager Operations Present Accompanied by: Self / Same As Patient Allergies Penicillins Allergy (Severe, Verified 07/17/25 09:57) Anaphylaxis aspirin Allergy (Intermediate, Verified 07/17/25 09:57) Rash seafood Allergy (Intermediate, Verified 07/17/25 09:57) Anaphylaxis, rash Medication List - Last Reconciled 07/17/25 by Luis Carlos Adrian MD albuterol sulfate 90 mcg/actuation 2 puffs inhalation Q4-6H PRN amitriptyline 10 mg PO BEDTIME 30 days atorvastatin 20 mg PO DAILY betamethasone dipropionate 0.05% 1 appl topical DAILY PRN bupropion HCl 1 tab PO DAILY buspirone 5 mg PO BID somrhmvqju-nowrtcztizazf-imki 50-325-40 mg 2 tabs PO DAILY PRN 30 days cholecalciferol (vitamin D3) 25 mcg PO DAILY ciprofloxacin HCl (Cipro) 500 mg PO Q12H citalopram 20 mg PO DAILY clotrimazole 1% 1 appl topical BID cyclobenzaprine 10 mg PO Q8H divalproex ER (Depakote ER) 250 mg PO BEDTIME 90 days docusate sodium (Colace) 100 mg PO DAILY gabapentin 300 mg PO BEDTIME hydroxyzine HCl 50 mg PO BID nystatin 1 appl topical QID ondansetron 4 mg PO DAILY PRN 30 days ondansetron 4 mg PO Q12H oxybutynin chloride 5 mg PO DAILY sennosides (senna) 8.6 mg PO DAILY thiamine HCl (vitamin B1) 100 mg PO DAILY tirzepatide (Mounjaro) 2.5 mg (0.5 mL) subcut QWEEK tizanidine 4 mg PO BID PRN 30 days verapamil ER 120 mg PO DAILY 30 days HPI Comments Details: 45-year-old female patient presenting for a high risk breast cancer evaluation due to a strong family history of breast cancer. She denies a previous history of breast problems but did undergo a bilateral reduction mammoplasty in 2009 and tolerated the surgery well. Her calculated Tyrer-Cuzick model remaining lifetime risk of breast cancer was calculated at 34%, well above the 20% threshold for high risk protocol. Her most recent mammogram dated 02/16/2025 revealed no mammographic evidence of malignancy (BI-RADS 2). Breast MRI performed on 09/01/2024 revealed no MR specific evidence of malignancy (BI-RADS 2 bilaterally). She reports 4 aunts with breast cancer. She had a pre malignant ovarian lesion subsequently underwent hysterectomy in October 2011. She has a prior history of a fibroadenoma but denies any pre malignant breast lesions. She denies a history of smoking, alcohol consumption, or radiation exposure. She is 1st at age 18, menarche at age 11. She underwent genetic testing on 11/18/2021 which revealed no clinically significant mutations and no mutations of unknown significance. An elevated risk for breast cancer due to her strong family history was identified once again with a Tyrer-Cuzick risk of breast cancer in her remaining life of 34%. Since her last visit she reports no breast related symptoms and generally feels well. [facility] Medical History JANNY (obstructive sleep apnea) Periodic limb movement disorder Hypersomnia Anxiety and depression COVID-19 vaccine series completed BMI 34.0-34.9,adult BMI 39.0-39.9,adult Insomnia Seizures DJD (degenerative joint disease) Stress incontinence GERD (gastroesophageal reflux disease) Hyperlipidemia Sleep apnea with use of continuous positive airway pressure (CPAP) Non-insulin dependent type 2 diabetes mellitus Obesity Well woman exam Ovarian low malignant potential tumor Umbilical hernia Migraine Asthma Morbid obesity Pannus, abdominal Surgical History Hx of tonsillectomy (12/22/23) Hx laparoscopic cholecystectomy S/P laparoscopic sleeve gastrectomy Hx of tubal ligation History of hysterectomy History of bilateral breast reduction surgery Family History Father History of prostate cancer Maternal Aunt History of breast cancer Mother Hypertension Hyperlipidemia Brother Thyroid condition Hypertension Brother No problems noted. Son No problems noted. Daughter No problems noted. Social History Are you a primary director of career services to a significant other at home: No Do you presently have visiting nurse or other home services: No Alcohol intake: never Comment: counts correct Patient Tobacco Use Status: Never used Tobacco service: No Female Reproductive History Menstrual Age of Menarche: 11 Review of Systems Const All systems reviewed & are unremarkable except as noted in HPI and below Physical Exam Vital Signs: Last Vital Signs BP 120/78 07/17/25 09:58 BMI result Body Mass Index 26.2 Const General: cooperative, comfortable and well developed Nutritional Appearance: well nourished Orientation/consciousness: patient oriented x3 Eyes Sclerae: sclerae normal EOM: EOMs intact bilaterally Neck Neck: Yes normal visual inspection Chest Other: Bilateral breast reduction incisions Left breast: No skin change, no nipple retraction, no nipple discharge, no palpable mass, no enlarged lymph nodes. Right breast: No skin change, no nipple retraction, no nipple discharge, no palpable mass, no enlarged lymph nodes Resp Effort & Inspection: normal respiratory effort, no cough, no respiratory distress and no stridor Cardio Jugular venous distension: no JVD GI Inspection: Yes normal to inspection Palpation (GI): Soft to palpation, nontender, no guarding and not rigid Skin General skin exam: dry skin Rashes: no rashes Neuro Other: Mobility Assessment: 1. 3 meter assessment time (seconds):5 2. Gait observations: Normal balance and gait General: patient oriented x3 and no focal motor deficits Extrem General: Yes full ROM and Yes no clubbing, cyanosis or edema Psych Appearance: grossly normal Assessment & Plan Assessment & Plan (1) At high risk for breast cancer: Code(s): Z91.89 - Other specified personal risk factors, not elsewhere classified Category: Medical Plan 45-year-old female patient presenting with a strong family history breast cancer presenting today for high risk breast cancer evaluation. Her most recent mammogram 02/16/2025 revealed no mammographic evidence of malignancy (BI-RADS 2). Her calculated Tyrer-Cuzick risk for breast cancer in her remaining life was calculated at 34%. Breast MRI dated 09/01/2024 revealed no MR specific evidence of malignancy (BI-RADS 2 bilaterally). Examination revealed no suspicious findings in either breast. She should continue her high risk breast screening with twice yearly clinical breast examinations, yearly mammogram alternating with yearly breast MRI. She is welcome to call sooner for any new concerns. As she is awaiting a panniculectomy to be performed by Dr. Fisher's, we will postpone her breast MRI until September 2025. Orders: Orders MR breast BI wo/w con 09/24/25 Z91.89 - Other specified personal risk factors, not elsewhere classified Coding Level of Care Code Est Pt Level 3 (22787) Complex EM visit Add On G2211 Diagnoses At high risk for breast cancer Z91.89
[2025-07-17 09:58] VITALS: BP 120/78; BMI 26.2
--- OUTSIDE RECORDS SUMMARY | 2025-07-17 10:42 | XMS_ITS | Clinical Summary ---
Author Organization [facility] it Address [address] [place] [address] Care Team Providers Care State Appellate Clerk Name Role Phone Cecilia Zee [facility] Primary Care Provider [phone] Surgical History Surgery Date Site/Laterality Comments OVARIAN CYST REMOVAL PROCEDURE: [place] OVARIAN CYSTECTOMY UNI/BI HYSTERECTOMY PROCEDURE: HISTORICAL HYSTERECTOMY BREAST REDUCTION PROCEDURE: [place] BREAST REDUCTION OTHER SURGICAL HISTORY 2007 PROCEDURE: [place] PUNCTURE ASPIRATION CYST BREAST EACH ADDL CYST; [...] AM EDT Narrative 07/09/2019 4:44 PM EDT [facility] Diagnostic Imaging Department [address] [place] [id number] Patient: ROBERTO ELIZALDE /Age/Sex: 1980 - 39 - F Unit#: [id number] Location/Status: SPDIMAM/PRE CLI Mnemonic/Ordering Site: [facility] Ordering Physician: REI DELACRUZ CNM [facility] Screening Digital - 07/08/1954 EXAM: [facility] Screening Digital EXAM DATE AND TIME: 07/08/2019 9:20 AM HISTORY: Screening. Reduction mammoplasty in 2007. Paternal grandmother had breast carcinoma. COMPARISON: Previous mammograms done in [place] are not available per the patient. TECHNIQUE: CC and MLO views of both breasts were obtained using full field digital mammography. Bilateral digital breast tomosynthesis was performed in the MLO projection. Computer aided detection with the tribr 7.2-H was employed. TISSUE DENSITY: a. The [...] Routine screening mammogram BILATERAL in 1 year. [id number], [id number] 3342F, 7025F Dictating Physician: ALIS POWER MD Electronically Signed by: ALIS POWER MD Dic Date/Time: 07/09/19 1643 Sign date/Time: 07/09/19 1644 Procedure Note Alis Power - 09/08/2022 [facility] Diagnostic Imaging Department [address] [place] [id number] Patient: TONIOROBERTO D.O.B./Age/Sex: 1980 - 39 - F Unit#: [id number] Location/Status: SPDIMAM/PRE CLI Mnemonic/Ordering Site: [facility] Ordering Physician: REI DELACRUZ CNM [facility] Screening Digital - 07/08/19 - 54 EXAM: [facility] Screening Digital EXAM DATE AND TIME: 07/08/2019 9:20 AM HISTORY: Screening. Reduction mammoplasty in 2007. Paternal grandmotherhad breast carcinoma. COMPARISON: Previous mammograms done in [place] are not available perthe patient. TECHNIQUE: CC and MLO views of both breasts were obtained using fullfield digital mammography. Bilateral digital breast tomosynthesis was performedin the MLO projection. Computer aided detection with the tribr 7.2-VC VISIONas employed. TISSUE DENSITY: a. The breasts are [...] Routine screening mammogram BILATERAL in 1 year. [id number], 17667 3342F, 7025F Dictating Physician: ALIS POWER MD Electronically Signed by: ALIS POWER MD Dic Date/Time: 07/09/19 1643 Sign date/Time: 07/09/19 1644 Rei Delacruz CNM IMG BI PROCEDURES Final Resul t * Pap smear (07/06/2019) 07/06/2019 Narrative HISTORICAL TESTING LAB RESULTING AGENCY - 07/10/2019 1:05 PM EDT [id number] THINPREP PAP, IMAGED: NEGATIVE FOR SQUAMOUS INTRAEPITHELIAL [...] Recently Relevant to Health Maintenance Care Teams State Appellate Clerk Relationship Specialty Start Date End Date Cecilia Zee FNP [address] [place] [address] PCP - General Internal Medicine 04/27/19
--- OUTSIDE RECORDS SUMMARY | 2025-07-17 10:42 | XMS_ITS | Clinical Summary ---
Author Organization [facility] Address [address] [place] [address] Care Team Providers Care Lock Fitter Name Role Phone Unavailable Primary Care Provider [...] Treatment Not on file Insurance [employer] [facility] [employer]
== END 2025-07-17 10:09 | disposition home or self-care (01) ==
LOC: HO.HGS 09:26
PROVIDERS: PCP Internal Medicine; Visit Provider Surgery
DX: Z91.89 Other specified personal risk factors, not elsewhere classified (principal)
CPT/HCPCS: 99213

== ENCOUNTER → 2025-07-17 09:25 | Outpatient (BNVA) | payer MEDICAID, SELFPAY | PROVIDERS: PCP Internal Medicine; Visit Provider Surgery | DX: Z80.3 Family history of malignant neoplasm of breast (principal); Z15.01 Genetic susceptibility to malignant neoplasm of breast | CPT/HCPCS: 99212 ==

== ENCOUNTER 2025-07-24 08:33 | Day surgery (SDC) | payer MEDICAID, SELFPAY ==
--- OUTSIDE RECORDS SUMMARY | 2025-07-10 19:25 | XMS_ITS | Clinical Summary ---
Author Organization [facility] it Address [address] [place] [address] Care Team Providers Care Academic Affairs Dean Name Role Phone Cecilia Zee [facility] Primary Care Provider [phone] Surgical History Surgery Date Site/Laterality Comments OVARIAN CYST REMOVAL PROCEDURE: CA OVARIAN CYSTECTOMY UNI/BI HYSTERECTOMY PROCEDURE: HISTORICAL HYSTERECTOMY BREAST REDUCTION PROCEDURE: CA BREAST REDUCTION OTHER SURGICAL HISTORY 2007 PROCEDURE: CA PUNCTURE ASPIRATION CYST BREAST EACH ADDL CYST; [...] AM EDT Narrative 07/09/2019 4:44 PM EDT [facility] Diagnostic Imaging Department [address] [place] [address] Patient: ROBERTO ELIZALDE /Age/Sex: 1980 - 39 - F Unit#: [id number] Location/Status: SPDIMAM/PRE CLI Mnemonic/Ordering Site: [facility] Ordering Physician: REI DELACRUZ CNM [facility] Screening Digital - 07/08/1954 EXAM: [facility] Screening Digital EXAM DATE AND TIME: 07/08/2019 9:20 AM HISTORY: Screening. Reduction mammoplasty in 2007. Paternal grandmother had breast carcinoma. COMPARISON: Previous mammograms done in [place] are not available per the patient. TECHNIQUE: CC and MLO views of both breasts were obtained using full field digital mammography. Bilateral digital breast tomosynthesis was performed in the MLO projection. Computer aided detection with the [employer] 7.2-H was employed. TISSUE DENSITY: a. The [...] Routine screening mammogram BILATERAL in 1 year. 15146, [id number] 3342F, 7025F Dictating Physician: ALIS POWER MD Electronically Signed by: ALIS POWER MD Dic Date/Time: 07/09/19 1643 Sign date/Time: 07/09/19 1644 Procedure Note Alis Power - 09/08/2022 [facility] Diagnostic Imaging Department [address] [place] [address] Patient: TONIOROBERTO D.O.B./Age/Sex: 1980 - 39 - F Unit#: [id number] Location/Status: SPDIMAM/PRE CLI Mnemonic/Ordering Site: [facility] Ordering Physician: REI DELACRUZ CNM [facility] Screening Digital - 07/08/19 - 54 EXAM: [facility] Screening Digital EXAM DATE AND TIME: 07/08/2019 9:20 AM HISTORY: Screening. Reduction mammoplasty in 2007. Paternal grandmotherhad breast carcinoma. COMPARISON: Previous mammograms done in [place] are not available perthe patient. TECHNIQUE: CC and MLO views of both breasts were obtained using fullfield digital mammography. Bilateral digital breast tomosynthesis was performedin the MLO projection. Computer aided detection with the [employer] 7.2-Amaruas employed. TISSUE DENSITY: a. The breasts are [...] Routine screening mammogram BILATERAL in 1 year. [id number], [id number] 3342F, 7025F Dictating Physician: ALIS POWER MD Electronically Signed by: ALIS POWER MD Dic Date/Time: 07/09/19 1643 Sign date/Time: 07/09/19 1644 Rei Delacruz CNM IMG BI PROCEDURES Final Resul t * Pap smear (07/06/2019) 07/06/2019 Narrative HISTORICAL TESTING LAB RESULTING AGENCY - 07/10/2019 1:05 PM EDT [id number] THINPREP PAP, IMAGED: NEGATIVE FOR SQUAMOUS INTRAEPITHELIAL [...] Recently Relevant to Health Maintenance Care Teams Academic Affairs Dean Relationship Specialty Start Date End Date Cecilia Zee FNP [address] [place] [phone] PCP - General Internal Medicine 04/27/19
--- OUTSIDE RECORDS SUMMARY | 2025-07-10 19:25 | XMS_ITS | Encounter Summary ---
Author Organization [employer] Address [address] [facility] [address] [place] [address] Care Team Providers Care Air Boatswain Name Role Phone Simona Ribeiro MD Primary Care Provide r Reason for Visit * Reason Comments Med Refill Encounter Details Date Type Department Care Team (Late Contact Info) Description 12/22/2022 Refill [facility] MEDICINE [address] [place] [phone] Rishabh Mcnally MD [address] [place] [phone] Vaginal candidiasis Social History Tobacco Use Types [...] 8:00 AM EDT Office Visit [facility] ADULT DENTAL [address] [place], [place] [phone] Halina Reeves [address] [place], [place] [phone] documented as of this encounter Visit Diagnoses Diagnosis Vaginal candidiasis Candidiasis of vulva and vagina documented in this encounter Care Teams Air Boatswain Relationship Specialty Start Date End Date Simona Ribeiro MD [address] [place] [address] PCP - General Family Medicine 07/21/19 [employer] 02/22/24 documented as of this encounter
--- OUTSIDE RECORDS SUMMARY | 2025-07-10 19:25 | XMS_ITS | Clinical Summary ---
Author Organization [facility] Address [address] [place] [address] Care Team Providers Care Application Support Technician Name Role Phone Unavailable Primary Care Provider [...] Treatment Not on file Insurance [facility]
--- OUTSIDE RECORDS SUMMARY | 2025-07-10 19:25 | XMS_ITS | Clinical Summary ---
Author Organization [employer] Address [address] [facility] 7t [place] [address] Care Team Providers Care Inspecting Supervisor Name Role Phone Simona Ribeiro MD Primary Care Provide r Allergies Active Allergy Reactions Criticality Noted Date Comments Aspirin Hives,Swelling 07/12/2018 Only to ASA, other NSAIDs is ok. Allergic reaction occurred when pt was 12 years old and occurred in [place]. Penicillin G 12/06/2023 Penicillins Anaphylaxis,Hives High 07/12/2018 [...] g 023 Active Blood Glucose Monitoring Suppl (Senior Home CareStyle Lite) w/Device kit 1 each in the [...] 024 Active ergocalciferol (Vitamin D-2) 1.25 MG (44367 UT) capsuleIndication s:Vitamin D deficiency Take 1 [...] into vagina at bedtime for 7 nights (TURKISH) 45 g 025 Active lidocaine (Lidoderm) 5 [...] chronic allergic conjunctivitis 11/01/2023 History of dental mu-ism 10/06/2023 Missing teeth, acquired 09/14/2023 Acute bacterial [...] Type Department Care Team Description 07/02/2025 Refill [facility] [address] [place], [place] [phone] Simona Ribeiro MD Prediabetes; Allergic conjunctivitis of both eyes; Allergic dermatitis 06/28/2025 Refill [facility] [address] [place], [place] [phone] Simona Ribeiro MD Fibromyalgia 06/25/2025 8:45 AM EDT Office Visit [facility] [address] [place] [address] Halina Reeves Dental plaque (Primary Dx); Missing teeth, acquired; Normal oral exam 06/18/2025 Travel 05/03/2025 Refill [facility] [address] [place] [address] Simona Ribeiro MD Prediabetes from Last 3 Months Immunizations Immunization Administration [...] Score 22 11/02/2024 Patient Health Questionnaire-9 Score 11/02/2024 Last PHQ-9: Questionnaire Data Not on [...] Description 12/25/2025 8:00 AM EDT Office Visit [facility] [address] [place] [address] Leandro, Halina [address] [place] [address] Health Maintenance Due Date Last Done Comments [...] Screening 06/25/2026 06/25/2025 Dental X-Ray: Bitewings 06/26/2026 06/25/20, 09/05/2024, 09/14/2023, Additional history exists Cervical Cancer [...] AM EDT) Hepatitis C Antibody Nonreactive Nonreactive [facility] Comment:Antibodies to HCV no t detected; does not exclude early acuteHCV infection. Blood Venous blood specimen / Unknown 02/28/2025 8:27 AM EDT 02/28/2025 8:27 AM EDT us Simona Gaston MD LAB BLOOD ORDERABLES Final Result [facility] [address] [place] [phone] * HIV-1/2 Antigen and Antibodies, Fourth Generation, with Reflexes (02/28/2025 8:27 AM EDT) HIV AB/AG Nonreactive Nonreactive [facility] Comment:HIV-1 p24 Ag and/or HIV-1/HIV-2 Ab not detected.A test result that is nonreactive does not exclude thepossibility of exposure to or infection with HIV-1 and/orHIV-2. Nonreactive results in this assay for individualswith prior exposure to HIV-1 and/or HIV-2 may be due toantigen and antibody levels that are below the limit ofdetection of this assay.The [employer] HIV Ag/Ab Combo assay result andsupplemental assay results should be interpreted inconjunction with the patient's clinical presentation,history and other laboratory results. If the results areinconsistent with clinical evidence, additional testing issuggested to confirm the result. Blood Venous blood specimen / Unknown 02/28/2025 8:27 AM EDT 02/28/2025 8:27 AM EDT us Simona Gaston MD LAB BLOOD ORDERABLES Final Result Performing Organization Address [facility]/ZIP Co de Phone Number [facility] [address] [place] [phone] * Hemoglobin A1c (02/28/2025 8:27 AM EDT) Hemoglobin A1c 5.5 <6.0 % [facility] Comment:Hemoglobin A1C Refer ence Range Adults: 4.8 - 6.0 % Non diabetic: < 6.0 % Goal: < 7.0 %Additional Action Suggested: > 8.0 %Note: Hemoglobin A1c results are invalid for patients with abnormal amounts of HbF. Blood transfusions may impact the HbA1c concentration in the patient sample. Estimated Average Glucose 111 mg/dL [facility] Comment:eAG = Estimated ave rage glucose which is %A1C expressed asaverage glucose, using the formula of the D4O-GhsnipaRhxnvix Glucose study (ADAG), Diabetes Care, Vol.31,#8,Apr. 2007 02/28/2025 8:27 AM EDT 02/28/2025 8:27 AM EDT us Generic External Data Provider LAB BLOOD ORDERAB LES Final Result Performing Organization Address [facility] Co de Phone Number [facility] [address] [place] [phone] * (ABNORMAL) Lipid Panel, Standard (02/28/2025 8:27 AM EDT) Triglycerides 93 <150 mg/dL [facility] Comment:Desirable Triglyceri de: less than 150 mg/dLBorderline High Triglyceride 150-199 mg/dLHigh Triglyceride: 200-499 mg/dLVery High Triglyceride: greater than or equal to 5OO mg/dL Cholesterol 221(H) <200 mg/dL [facility] Comment:Desirable Cholestero l: less than 200 mg/dLBorderline High Cholesterol: 200-239 mg/dLHigh Cholesterol: greater than 239 mg/dL LDL Cholesterol Calculated 153(H) <100 mg/dL [facility] Comment:Desirable LDL: less than 100 mg/dLNear Optimal/Above Optimal LDL: 110- 129 mg/dLBorderline High LDL: 130-159 mg/dLHigh LDL: 160-189 mg/dLVery High LDL: greater than or equal to 190 mg/dL HDL Cholesterol 50 >40 mg/dL [facility] Comment:Desirable HDL: great er than 40 mg/dL Note: This HDL assay may give artificially low results in patients with liver disease. Blood Venous blood specimen / Unknown 02/28/2025 8:27 AM EDT 02/28/2025 8:27 AM EDT us Simona Gaston MD LAB BLOOD ORDERABLES Final Result Performing Organization Address [facility] Co de Phone Number [facility] [address] [place] [phone] * Albumin, Random Urine W/Creatinine (02/28/2025 8:20 AM EDT) Creatinine, Urine 520.55 mg/dL [facility] Microalbumin Urine 49.0 mg/L [facility] Microalbum Creatinine Ratio Ur 9.4 <30 ug/mg cr [facility] Comment:Albumin/Creatinine R atio Reference Ranges: Normal: < 30 ug/mg creatinine Microalbuminuria: 30 - 300 ug/mg creatinineClinical Albuminuria: > 300 ug/mg creatinine Urine (Urine, Random) 02/28/2025 8:20 AM EDT 02/28/2025 9:10 AM EDT us Simona Gaston MD LAB URINE ORDERABLES Final Result Performing Organization Address [facility]/ZIP Co de Phone Number [facility] [address] [place] [address] [phone] * BI Mammogram Screening Tomosynthesis Bilateral (02/16/2025 7:52 AM EDT) Anatomical Region Laterality Modality Breast Bilateral Mammography 02/16/2025 7:52 AM EDT Narrative 02/23/2025 5:07 PM EDT [address] [place] [address] Mammography Report Signed Patient: Regina Willson MR#: [id number] : 1980 Acct:[id number] Age/Sex: 44 / F ADM Date: 02/16/25 Loc: HO.MAMMO Attending Dr: Luis Carlos Adrian MD Ordering Physician: Luis Carlos Adrian MD Results: 2Beni gn Findings Date of Service: 02/16/25 Follow Up: 1 Year From Orig inal Mammogram Procedure(s): MM tomosynthesis screening BI Accession Number(s): [id number] cc: Simona Ribeiro MD; Luis Carlos Adrian [...] 02/23/25 1704 DD/ 0752 TD/TT: 02/16/25 0805 Healthcare Interpreter: Procedure Note Donotuseinterpreter, Image - 02/23/[address] [place] [address] Mammography Report Signed Patient: Regina WillsonMR#: [id number] : 1980Acct:[id number] Age/Sex: 44 / FADM Date: 02/16/25 Loc: HO.MAMMO Attending Dr: Luis Carlos Adrian MD Ordering Physician: Luis Carlos Adrian MDResults: 2Beni gn Findings Date of Service: 02/16/25Follow Up: 1 Year From Orig ina Mammogram Procedure(s): MM tomosynthesis screening BI Accession Number(s): [id number] cc: Simona Ribeiro MD; Luis Carlos Adrian [...] 02/23/25 1704 DD/ 0752 TD/TT: 02/16/25 0805 Healthcare Interpreter: [facility] External Provider IMG BI PROCEDURES Final Result * HPV E6/E7 RFLX DANNY 16 18/45 (08/18/2021 10:17 AM EST) HPV 16 RNA [facility] HPV 18/45 RNA [facility] HPV E6 E7 ADD [facility] HPV mRNA E6/E7 rflx Not Detected Not Detected [facility] Comment: Methodology: Fruit I Farmworker-Mediated Amplification This assay detects E6/E7 viral messenger RNA (mRNA) from 14 high-risk HPV types (16,18,31,33,35,39,45,51,52,56,58,59,66,68). The analytical performance characteristics of this assay have been determined by [employer]. The modifications have not been cleared or approved by the FDA. This assay has been validated pursuant to the CLIA regulations and is used for clinical purposes. For additional information, please refer to http://education.[employer]/faq/FIK988w9 (This link if provided for information/ educational purposes only.) THIS TEST WAS PERFORMED AT: [facility] [address] [place] [address],[place] [phone] JASWINDER PAUL MD 08/18/2021 10:1 7 AM EST Ramesh Maki MD HISTORICAL/NON ORDERABLE LABS Fi nal Result [facility] [address] * Hm Pap Smear (08/18/2021 12:00 AM EST) Historical Provider HEALTH MAINTENANCE Final Result from Last 3 Months or Most Recently Relevant to Health Maintenance Insurance [facility] C[place] AD[place] Care Teams Inspecting Supervisor Relationship Specialty Start Date End Date Simona Ribeiro MD [address] [place] [phone] PCP - General Family Medicine 07/21/19 [employer] 02/22/24
--- OUTSIDE RECORDS SUMMARY | 2025-07-10 19:25 | XMS_ITS | Encounter Summary ---
Author Organization [employer] Address [address] [facility] [address]t [place] [address] Care Team Providers Care Doughmaker Name Role Phone Simona Ribeiro MD Primary Care Provide r Reason for Visit * Reason Onset Date Comments Home Care Services 12/07/2022 I called the pt regarding a Physician Summary Form, from [employer] [facility]. She stated that she does not [...] (Late st Contact Info) Description 12/07/2022 Telephone [facility] [address] [place] [address] Simona Ribeiro MD [address] [place], [place] [phone] Home Care Services (I called the pt regarding a Physician Summary Form, from [employer] [facility]. She stated that she does not [...] Description 12/25/2025 8:00 AM EDT Office Visit [facility] [address] [place] [address] Leandro, Halina [address] [place] [phone] documented as of this encounter Visit Diagnoses Not on filedocumented in this encounter Care Teams Doughmaker Relationship Specialty Start Date End Date Simona Ribeiro MD [address] [place] [address] PCP - General Family Medicine 07/21/19 [employer] 02/22/24 documented as of this encounter
--- OUTSIDE RECORDS SUMMARY | 2025-07-10 19:25 | XMS_ITS | Encounter Summary ---
Author Organization [employer] Address [address] [facility] [address] [place] [address] Care Team Providers Care Steamer Tender Name Role Phone Simona Ribeiro MD Primary Care Provide r Encounter Details Date Type Department Care Team (Latest Contact Info) Description 10/04/2019 Abstract [facility] CONVERSIONS Dental, Provider, DDS Social History [...] Description 12/25/2025 8:00 AM EDT Office Visit [facility] [address] [place] [address] Leandro, Halina [address] [place] [address] documented as of this encounter Visit Diagnoses Not on filedocumented in this encounter Care Teams Steamer Tender Relationship Specialty Start Date End Date Simona Ribeiro MD [address] [place] [address] PCP - General Family Medicine 07/21/19 [employer] 02/22/24 documented as of this encounter
--- OUTSIDE RECORDS SUMMARY | 2025-07-10 19:25 | XMS_ITS | Encounter Summary ---
Author Organization [employer] Address [address] [facility] [address] [place] [address] Care Team Providers Care Health Insurance Assessor Name Role Phone Simona Ribeiro MD Primary Care Provide r Encounter Details Date Type Department Care Team ([facility] Contact Info) Description 06/14/2023 Orders Only [facility] [address] [place], [place] [phone] Nemo Patel Social History Tobacco Use Types [...] 8:00 AM EDT Office Visit [facility] [address] [place], [place] [phone] Halina Reeves [address] [place], [place] [phone] documented as of this encounter Procedures Procedure Name Priority Date/Time Associated Diagnosis Comments HM PAP/HPV Routine 08/18/2021 12:00 AM EST documented in this encounter Results * Hm Pap Smear (08/18/2021 12:00 AM EST) us Historical Provider HEALTH MAINTENANCE Final Result documented in this encounter Visit Diagnoses Not on filedocumented in this encounter Care Teams Health Insurance Assessor Relationship Specialty Start Date End Date Simona Ribeiro MD [address] [place] [phone] PCP - General Family Medicine 07/21/19 [employer] 02/22/24 documented as of this encounter
[2025-07-18 10:18] VITALS: BMI 25.6
--- NOTE | 2025-07-19 14:28 | HO.ANESPROP2 ---
Documented by User: Hilary Johns NP 07/20/25 10:05 HPI - Anesthesia Eval Consult details Narrative: 45yo F for Panniculectomy PONV GLP1: Pt reported to APURVA ZUÑIGA last taken 07/18/25 at 0800 during phone assessment. Subsequently reports to bariatrics office 07/17/25. T/C to patient 07/20/25 to discuss risk of slowed gastric motility. Confirms last dose 07/17/25 at 0800. Verbalized understanding of risk. Anesthesia Pre-Procedure Meds Is the patient on any of the following meds?: GLP1/DPP4 PMFSH Active Problems Active Problems: All Active Problems Numbness and tingling in right hand (Acute) Bursitis of left shoulder (Acute) Excess skin (Acute) COVID-19 (Acute) Vomiting (Acute) Gallstones (Acute) Abdominal pain (Acute) Well woman exam (Acute) Sacroiliac joint dysfunction of right side (Acute) Sacroiliitis (Acute) Discogenic lumbar pain (Acute) Lumbar spondylosis (Acute) Muscle spasm of back (Acute) Overweight (Acute) Constipation (Acute) At high risk for breast cancer (Acute) BMI 38.0-38.9,adult (Acute) Vitamin B12 deficiency (Acute) Vitamin A deficiency (Acute) S/P laparoscopic sleeve gastrectomy (Acute 01/06/22) Insomnia (Acute) Seizures (Acute) DJD (degenerative joint disease) (Acute) Stress incontinence (Acute) GERD (gastroesophageal reflux disease) (Acute) Hyperlipidemia (Acute) Sleep apnea with use of continuous positive airway pressure (CPAP) (Acute) Non-insulin dependent type 2 diabetes mellitus (Acute) Obesity (Acute) Umbilical hernia (Acute) Migraine (Acute) Asthma (Acute) Pannus, abdominal (Acute) Past Medical History Medical History Narcolepsy Seasonal allergies PONV (postoperative nausea and vomiting) JANNY (obstructive sleep apnea) Periodic limb movement disorder Hypersomnia Anxiety and depression COVID-19 vaccine series completed BMI 34.0-34.9,adult BMI 39.0-39.9,adult Insomnia Seizures DJD (degenerative joint disease) Stress incontinence GERD (gastroesophageal reflux disease) Hyperlipidemia Sleep apnea with use of continuous positive airway pressure (CPAP) Non-insulin dependent type 2 diabetes mellitus Obesity Well woman exam Ovarian low malignant potential tumor Umbilical hernia Migraine Asthma Morbid obesity Pannus, abdominal Family History Family History Father History of prostate cancer Maternal Aunt History of breast cancer Mother Hypertension Hyperlipidemia Brother Thyroid condition Hypertension Brother No problems noted. Son No problems noted. Daughter No problems noted. Family history of problems with anesthesia: Yes Surgical History Surgical History History of esophagogastroduodenoscopy (EGD) (12/22/24) History of lumpectomy of right breast (~2006) Hx of tonsillectomy (12/22/23) Hx laparoscopic cholecystectomy (07/29/23) S/P laparoscopic sleeve gastrectomy (01/06/22) Hx of tubal ligation History of hysterectomy History of bilateral breast reduction surgery History of Problems with Anesthesia: No Social History Social History Household Members: Family Housing: House Are you a primary home care coordinator to a significant other at home: Yes (children) Do you presently have visiting nurse or other home services: No Alcohol intake: never Comment: counts correct Patient Tobacco Use Status: Never used Tobacco e-Cigarette/Vaping Use: Never Used Use of substances other than those prescribed or required for medical reasons: No Have you been hit, kicked, punched, or otherwise hurt by someone within the past year? If so, by whom?: No Are you DNR?: No Advance Directives: No Advance Directives Information Provided: Yes Advance Directives on File: No Patient : No FDLMP: Hysterectomy service: No Meds Allergies Allergy/AdvReac Type Severity Reaction Status Date / Time Penicillins Allergy Severe Anaphylaxis Verified 07/18/25 09:48 seafood Allergy Severe Anaphylaxis, Verified 07/18/25 09:48 rash aspirin Allergy Intermediate Rash Verified 07/18/25 09:48 Home Medications ?Medication ?Instructions ?Recorded ?Confirmed ?Last Taken ?Type albuterol sulfate 90 mcg/actuation 2 puff inhalation Q4-6H PRN 07/11/20 07/18/25 01/05/22 History aerosol inhaler Wheezing atorvastatin 20 mg tablet 20 mg PO DAILY 07/11/20 07/18/25 01/05/22 History betamethasone dipropionate 0.05 % 1 applic topical DAILY PRN Rash 07/11/20 07/18/25 01/05/22 History topical cream buspirone 10 mg tablet 5 mg PO BID 07/11/20 07/18/25 01/05/22 History citalopram 20 mg tablet 20 mg PO DAILY 07/11/20 07/18/25 01/05/22 History hydroxyzine HCl 50 mg tablet 50 mg PO BID 07/11/20 07/18/25 01/05/22 History gabapentin 300 mg capsule 300 mg PO BEDTIME 08/27/21 07/18/25 01/05/22 History oxybutynin chloride 5 mg tablet 5 mg PO DAILY 08/27/21 07/18/25 Unknown History bupropion HCl 75 mg tablet 1 tab PO DAILY 01/06/22 07/18/25 01/05/22 History cyclobenzaprine 10 mg tablet 10 mg PO Q8H PRN Muscle Spasm 07/18/25 07/18/25 Unknown History famotidine 20 mg tablet 20 mg PO BEDTIME 07/18/25 07/18/25 Unknown History Exam Height,Weight and Vital Signs: Height 5 ft 2 in Weight 63.503 kg Pertinent Lab Results Pertinent Lab Results: Lab Results 07/20/25 07/20/25 Range/Units 07:51 08:00 WBC 5.3 (4.8-10.8) X10*3/uL RBC 4.95 (4.20-5.50) X10*6/uL Hgb 14.3 (12.0-16.0) g/dl Hct 44.7 (37.0-47.0) % MCV 90.3 (80.0-98.0) fL MCH 28.9 (27.0-33.0) pg MCHC 32.0 (31.0-35.0) g/dl RDW 13.4 (11.0-16.0) % Plt Count 316 (160-400) X10*3/uL MPV 10.0 (9.4-12.3) fL Immature Gran % (Auto) 0.2 (0.0-0.4) % Neut % (Auto) 41.1 L (45-73) % Lymph % (Auto) 49.3 H (20-40) % [place] % (Auto) 6.9 (2-11) % Eos % (Auto) 1.5 (0-4) % Baso % (Auto) 1.0 (0-2) % Lymph # (Auto) 2.6 (1.2-4.9) X10*3/uL [place] # (Auto) 0.4 (0.1-1.2) X10*3/uL Eos # (Auto) 0.1 (0.0-0.4) X10*3/uL Baso # (Auto) 0.1 (0.0-0.2) X10*3/uL Abs Immat Gran (auto) 0.01 (0.00-0.03) X10*3/uL Absolute Neuts (auto) 2.2 (2.0-8.3) x10*3/uL Absolute Nucleated RBC 0.000 (0.0-0.012) X10*3/uL Nucleated RBC % (auto) 0.0 (0.0-0.2) /100WBC PT 10.7 L (10.9-12.4) SEC INR 0.9 (0.9-1.1) APTT 25.2 L (26.7-34.1) SEC Sodium 143 (135-145) mmol/L Potassium 3.8 (3.3-5.1) mmol/L Chloride 107 (96-108) mmol/L Carbon Dioxide 28 (22-29) mmol/L Anion Gap 12 (12-20) BUN 12 (9-16) mg/dL Creatinine 0.82 (0.5-1.4) mg/dL Estim Creat Clear Calc 75.8 Estimated GFR > 60 Random Glucose 85 (60-115) mg/dL Calcium 10.1 (8.4-10.2) mg/dL Total Bilirubin 0.7 (0.0-1.0) mg/dL AST 23 (5-31) U/L ALT 22 (0-31) U/L Alkaline Phosphatase 67 (39-117) U/L Total Protein 7.5 (6.5-8.0) g/dL Albumin 4.8 (3.5-5.0) g/dL Blood Type A Positive Antibody Screen NEGATIVE Assessment and Plan Assessment Anesthesia Assessment: Chart Reviewed Final Anesthetic Review Family History of Problems with Anesthesia: Yes History of Problems with Anesthesia: No Documented by User: Christy House MD 07/24/25 11:50 PMFSH Past Medical History Medical History Narcolepsy Seasonal allergies PONV (postoperative nausea and vomiting) JANNY (obstructive sleep apnea) Periodic limb movement disorder Hypersomnia Anxiety and depression COVID-19 vaccine series completed BMI 34.0-34.9,adult BMI 39.0-39.9,adult Insomnia Seizures DJD (degenerative joint disease) Stress incontinence GERD (gastroesophageal reflux disease) Hyperlipidemia Sleep apnea with use of continuous positive airway pressure (CPAP) Non-insulin dependent type 2 diabetes mellitus Obesity Well woman exam Ovarian low malignant potential tumor Umbilical hernia Migraine Asthma Morbid obesity Pannus, abdominal Family History Family History Father History of prostate cancer Maternal Aunt History of breast cancer Mother Hypertension Hyperlipidemia Brother Thyroid condition Hypertension Brother No problems noted. Son No problems noted. Daughter No problems noted. Surgical History Surgical History History of esophagogastroduodenoscopy (EGD) (12/22/24) History of lumpectomy of right breast (~2006) Hx of tonsillectomy (12/22/23) Hx laparoscopic cholecystectomy (07/29/23) S/P laparoscopic sleeve gastrectomy (01/06/22) Hx of tubal ligation History of hysterectomy History of bilateral breast reduction surgery Social History Social History Household Members: Family Housing: House Are you a primary home care coordinator to a significant other at home: Yes (children) Do you presently have visiting nurse or other home services: No Alcohol intake: never Comment: counts correct Patient Tobacco Use Status: Never used Tobacco e-Cigarette/Vaping Use: Never Used Use of substances other than those prescribed or required for medical reasons: No Have you been hit, kicked, punched, or otherwise hurt by someone within the past year? If so, by whom?: No Are you DNR?: No Advance Directives: No Advance Directives Information Provided: Yes Advance Directives on File: No Patient : No FDLMP: Hysterectomy service: No Meds Allergies Allergy/AdvReac Type Severity Reaction Status Date / Time Penicillins Allergy Severe Anaphylaxis Verified 07/18/25 09:48 seafood Allergy Severe Anaphylaxis, Verified 07/18/25 09:48 rash aspirin Allergy Intermediate Rash Verified 07/18/25 09:48 Home Medications ?Medication ?Instructions ?Recorded ?Confirmed ?Last Taken ?Type albuterol sulfate 90 mcg/actuation 2 puff inhalation Q4-6H PRN 07/11/20 07/18/25 01/05/22 History aerosol inhaler Wheezing atorvastatin 20 mg tablet 20 mg PO DAILY 07/11/20 07/18/25 01/05/22 History betamethasone dipropionate 0.05 % 1 applic topical DAILY PRN Rash 07/11/20 07/18/25 01/05/22 History topical cream buspirone 10 mg tablet 5 mg PO BID 07/11/20 07/18/25 01/05/22 History citalopram 20 mg tablet 20 mg PO DAILY 07/11/20 07/18/25 01/05/22 History hydroxyzine HCl 50 mg tablet 50 mg PO BID 07/11/20 07/18/25 01/05/22 History gabapentin 300 mg capsule 300 mg PO BEDTIME 08/27/21 07/18/25 01/05/22 History oxybutynin chloride 5 mg tablet 5 mg PO DAILY 08/27/21 07/18/25 Unknown History bupropion HCl 75 mg tablet 1 tab PO DAILY 01/06/22 07/18/25 01/05/22 History cyclobenzaprine 10 mg tablet 10 mg PO Q8H PRN Muscle Spasm 07/18/25 07/18/25 Unknown History famotidine 20 mg tablet 20 mg PO BEDTIME 07/18/25 07/18/25 Unknown History Exam Airway Mallampati Class: II TM Dist: >3cm Neck ROM: Full Loose/Missing/Broken Teeth: No Heart: RRR Lungs: CTA Assessment and Plan Assessment Anesthesia Assessment: Anesthesia Plan Discussed Final Anesthetic Review NPO: Yes ASA Class: III Final Preanesthetic Review: Meds/Allgs Chart Reviewed, Consent Obtained/Reviewed and Anes Risks/Benef Reviewed Patient Risk: Intermediate Procedure Risk: Low Anesthetic Plan Anesthetic Plan: GA Disposition: Standard PACU
[2025-07-20 08:02] LABS: MANUAL DIFF FLAG NO
[2025-07-20 08:38] LABS: Hematocrit 44.7 % (37.0-47.0); Hemoglobin 14.3 g/dl (12.0-16.0); Imm Gran Abs Auto 0.01 X10*3/uL (0.00-0.03); Imm Gran Pct Auto 0.2 % (0.0-0.4); Lymphocytes Absolute Auto 2.6 X10*3/uL (1.2-4.9); Mean Corpuscular HGB Conc 32.0 g/dl (31.0-35.0); Mean Corpuscular Hemoglobin 28.9 pg (27.0-33.0); Mean Corpuscular Volume 90.3 fL (80.0-98.0); NRBC Abs Auto 0.000 X10*3/uL (0.0-0.012); NRBC Pct Auto 0.0 /100WBC (0.0-0.2); Platelet Count 316 X10*3/uL (160-400); Red Blood Count 4.95 X10*6/uL (4.20-5.50); White Blood Count 5.3 X10*3/uL (4.8-10.8)
[2025-07-20 08:45] LABS: INTERNATIONAL NORM RATIO 0.9 (0.9-1.1); Prothrombin Time 10.7 SEC (10.9-12.4)
[2025-07-20 08:48] LABS: Partial Thromboplastin Time 25.2 SEC (26.7-34.1)
[2025-07-20 09:00] LABS: Alanine Aminotransferase 22 U/L (0-31); Albumin Level 4.8 g/dL (3.5-5.0); Alkaline Phosphatase 67 U/L (39-117); Anion Gap 12 (12-20); Aspartate Amino Transferase 23 U/L (5-31); Blood Urea Nitrogen 12 mg/dL (9-16); Calcium 10.1 mg/dL (8.4-10.2); Carbon Dioxide 28 mmol/L (22-29); Chloride 107 mmol/L (96-108); Creatinine Clr Calc Pharmacy 75.8; Estimated Glomerular Filt Rate > 60; Potassium 3.8 mmol/L (3.3-5.1); Sodium 143 mmol/L (135-145); Total Protein 7.5 g/dL (6.5-8.0)
[2025-07-24] VITALS (11 sets, daily range): BP systolic 100–115; BP diastolic 54–69; PULSE 64–107; RESP 11–16; TEMP 36.6–36.8; O2SAT 96–100; BMI 25.6
--- NOTE | 2025-07-24 10:42 | W.MHC.F2F ---
Service Date Service Date: 07/24/25 Encounter Date of encounter: 07/24/25 Reasons for Services Signs and symptoms assessed: s/p panniculectomy with drain placement Reason for longterm: wound care Homebound: Leaving the home is medically contraindicated at this time without the asist of a device and/or another person due th the listed conditions above and below. Reason homebound: unable to drive Certification: Based on the above findings, I certify that this patient is confined to the home and needs intermittent longterm care, physical therapy and/or speech therapy, or continues to need occupational therapy. The patient is under my care, and I have initiated the establishment of the plan of care. The patient will be followed by a physician who will periodically review the plan of care. Time Spent With Patient Time: Total time managing care of this patient today __30__ minutes.
[2025-07-24 10:46] LABS: Glucose, Whole Blood 70 mg/dL (60-115)
[2025-07-24] MEDS: Aprepitant 32 MG/4.4 ML VIAL IVPUSH (10:46)
[2025-07-24] MEDS: Lactated Ringers 1,000 ML 100 ML IVCONT (10:48)
--- NOTE | 2025-07-24 11:42 | MHC.SHP ---
Pre-Procedural Eval Section A - 24 Hr Update-Section A only Date of Service: 07/24/25 The patient is an INPATIENT: No The patient has been examined within 24 hours of the surgical procedure. The History & Physical has been completed within 30 days and I have reviewed it.: Yes Section B - Complete if H&P > 30 days Chief Complaint: Excessive and redundant skin and subcutaneous tiss Relevant Family History (Specify if Yes): No Relevant Social History: None Present Medications: None Medical History: No relevant PMH History of Previous Operations: Relevant previous surgery/procedure and date(s) (Laparoscopic sleeve gastrectomy) Allergies: Allergies Allergy/AdvReac Type Severity Reaction Status Date / Time Penicillins Allergy Severe Anaphylaxis Verified 07/18/25 09:48 seafood Allergy Severe Anaphylaxis, Verified 07/18/25 09:48 rash aspirin Allergy Intermediate Rash Verified 07/18/25 09:48 Review of Systems Sugical H&P ROS: Negative: Constitution, Cardiovascular, Respiratory, Neurological, Psychiatric, Hem-Onc, Allergic/Immunologic, Gastrointestinal, Genitourinary, Musculoskeletal, Integumentary, Endocrine and Eyes/Ears/Nose/Throat Exam Surgical H&P Exam: Normal: HEENT, Normal: Heart, Normal: Lungs, Normal: Extremities, Normal: Abdomen, Normal: Skin and Normal: Neurological Plan Diagnosis/Plan: Unchanged I have reviewed the history and physical and performed a pertinent physical examination on my patient. No changes have occurred unless specified. Time Spent With Patient Time: Total time managing care of this patient today ____ minutes.
--- NOTE | 2025-07-24 11:43 | P.BOP_ITS ---
Brief Operative Note Date of Service: 07/24/25 Pre-op diagnosis: Excess skin Post-op diagnosis: same Procedure: PROCEDURE: Panniculectomy with umbilical transposition and bilateral subcutaneous fat flaps INDICATION: This a 45 year old female who underwent laparoscopic sleeve gastrectomy on 01/06/2022. She had an excellent result achieving a BMI of 25.7 kg/m2 with a total weight loss of 71lbs, or 33.6% of her TBWL. As a result, she has developed panniculitis which has not resolved despite continuous use of clotrimazole ointment as well as skin irritation. On exam she has extreme skin laxity due to massive weight loss, with the abdominal pannus completely hanging 4cm below the pubis. Panniculectomy was recommended. We discussed the two options for the panniculectomy of using a combined vertical and horizontal incisions or just a horizontal (bikini) incision. It was my recommendation to do only horizontal incision based on her body habitus and skin laxity. The patient agreed with this. Risks and complications were discussed with the patient including bleeding, infection, umbilical loss, flap necrosis, asymmetry, dehiscence, seroma, VTE. The patient understood the risks and was in agreement to proceed with surgery. PROCEDURE: The incisions were appropriately marked at the preop area with the patient standing and laying down. After induction of general anesthesia a Moore catheter and pneumatic compression devices were placed. The patient was prepped and draped in the usual sterile manner and the incisions were marked again and confirmed. The skin was infiltrated with lidocaine and epinephrine. The #10 blade scalpel was used for the large incisions and the #15 blade scalpel for the umbilicus. Cautery was used to divide the subcutaneous tissues until the fascia was identified. Then I used the cautery to separate the pannus from the fascia. The inferior incision was made initially and I mobilized the flap for a several centimeters cephalad to the umbilicus. The umbilicus was incised circumferentially and detached from the surrounding tissues all the way to the fascia while its stalk was preserved. With the patient in reflex position I confirmed that the skin flaps were appropriate and would allow for the tissues to come together with reasonable tension. At that point a horizontal incision was made 4 cm above the umbilicus. #10 blade was used for the skin, cautery for the dermis and for the remaining tissues. A subcutaneous fat flap was raised from the upper skin flap in order to fill the space under the skin and support the closure of the two flaps. In addition the inferior flap was mobilized caudally for a few centimeters to create a space for the subcutaneous fat flap as well as relieve tension from the closure. A circumferential incision was made at the area where the umbilicus would be re-implanted. The umbilicus was appropriately oriented and was delivered through the defect and was secured in place with a [place]. No bleeding was noted anywhere. One FALLON drain was placed from the left corner of the horizontal incision across the wound and was secured in place with a silk suture. The subcutaneous fat flap was secured under the inferior flap with several interrupted 3.0 Monocryl sutures. The two flaps were brought together and were attached at the midline of the horizontal incision with a #3.0 Monocryl suture. At that point the umbilicus was properly oriented and was re-approximated to the skin with 8 interrupted 3.0 Monocryl sutures. In a similar fashion the skin flaps were re-approximated with multiple 3.0 Monocryl sutures. The skin was closed in all incisions and umbilicus with 4.0 Monocryl sutures. Steri-strips, xeroform gauzes and gauzes were used to cover the incisions. An abdominal binder was also placed. The was awaken and was transferred to the recover room in a stable condition. I was present and performed the entire procedure. Billy was the editorial assistant. Rohit Fisher MD, PhD, FACS Surgeon: El Fisher MD Surgeon: El Fisher MD Anesthesia: GETA and local Was an Senior Research Project Manager used for this Procedure?: No Senior Research Project Manager: Teodora Cervantes Estimated blood loss (mL): 10 IV fluids (mL): 1,500 Urine output (mL): 0 (No Moore to record output) Pathology: other (Abdominal pannus) Condition: stable Disposition: PACU
== END 2025-07-24 18:20 | disposition home or self-care (01) ==
PROVIDERS: PCP Internal Medicine; Visit Provider Surgery
PROC: 0JB80ZZ Excision of Abdomen Subcutaneous Tissue and Fascia, Open Approach (ICD-10-PCS; CPT 15830; principal; 2025-07-24 11:50)
DX: L98.7 Excessive and redundant skin and subcutaneous tissue (principal); M79.3 Panniculitis, unspecified; E65 Localized adiposity; R21 Rash and other nonspecific skin eruption; K21.9 Gastro-esophageal reflux disease without esophagitis; K59.00 Constipation, unspecified; R11.0 Nausea; E66.9 Obesity, unspecified; E11.9 Type 2 diabetes mellitus without complications; Z68.34 Body mass index [BMI] 34.0-34.9, adult; E78.5 Hyperlipidemia, unspecified; R56.9 Unspecified convulsions; F41.8 Other specified anxiety disorders; J45.909 Unspecified asthma, uncomplicated; G47.33 Obstructive sleep apnea (adult) (pediatric); Z99.89 Dependence on other enabling machines and devices; Z79.85 Long-term (current) use of injectable non-insulin antidiabetic drugs; Z79.899 Other long term (current) drug therapy; Z88.0 Allergy status to penicillin; Z88.6 Allergy status to analgesic agent; Z98.84 Bariatric surgery status; Z98.890 Other specified postprocedural states
CPT/HCPCS: 15830; 15847; 36415; 80053; 82947; 85025; 85610; 85730; 86850; 86900; 86901; 88304; C9145; J0131; J0461; J1100; J1956; J2003; J2004; J2250; J2371; J2405; J2704; J3010; J3374

== ENCOUNTER → 2025-07-24 08:33 | Outpatient (BNV) | payer MEDICAID, SELFPAY | PROVIDERS: PCP Internal Medicine; Visit Provider Nurse Practitioner | DX: M79.3 Panniculitis, unspecified (principal); L98.7 Excessive and redundant skin and subcutaneous tissue | CPT/HCPCS: 15830; 99024 ==

== ENCOUNTER 2025-08-01 14:09 | Outpatient (AMB) | payer MEDICAID, SELFPAY ==
--- NOTE | 2025-08-01 14:23 | MHC.OFFVISWM ---
VS Expanded 08/01/25 14:24 BP 122/74 Blood Pressure Location Lt brachial Blood Pressure Position Sitting Pulse 78 Pulse Source Pulse Oximeter Temp 98 F Temperature Source Skin Pulse Oximetry 100 Oxygen Delivery Method Room Air Intake Visit Reasons: OV PO Panniculectomy 07/24/25 Harbor Tug Captain Required: Yes Harbor Tug Captain Name: Jeff Mckenna, [id number] Information Interpreted: clinical only Allergies Penicillins Allergy (Severe, Verified 07/18/25 09:48) Anaphylaxis seafood Allergy (Severe, Verified 07/18/25 09:48) Anaphylaxis, rash aspirin Allergy (Intermediate, Verified 07/18/25 09:48) Rash Medication List - Last Reconciled 08/01/25 by JO ANN Syed albuterol sulfate 90 mcg/actuation 2 puffs inhalation Q4-6H PRN amitriptyline 10 mg PO BEDTIME 30 days atorvastatin 20 mg PO DAILY betamethasone dipropionate 0.05% 1 appl topical DAILY PRN bupropion HCl 1 tab PO DAILY buspirone 5 mg PO BID epttabpumi-tmixuezaxvxgl-iorq 50-325-40 mg 2 tabs PO DAILY PRN 30 days cholecalciferol (vitamin D3) 25 mcg PO DAILY ciprofloxacin HCl (Cipro) 500 mg PO Q12H citalopram 20 mg PO DAILY cyclobenzaprine 10 mg PO Q8H PRN divalproex ER (Depakote ER) 250 mg PO BEDTIME 90 days docusate sodium (Colace) 100 mg PO DAILY famotidine 20 mg PO BEDTIME gabapentin 300 mg PO BEDTIME hydroxyzine HCl 50 mg PO BID nystatin 1 appl topical QID ondansetron 4 mg PO DAILY PRN 30 days ondansetron 4 mg PO Q12H oxybutynin chloride 5 mg PO DAILY sennosides (senna) 8.6 mg PO DAILY thiamine HCl (vitamin B1) 100 mg PO DAILY tirzepatide (Mounjaro) 2.5 mg (0.5 mL) subcut QWEEK tizanidine 4 mg PO BID PRN 30 days verapamil ER 120 mg PO DAILY 30 days HPI Comments Details: Pt is 1w s/p panniculectomy 07/24/2025. Taking abx, no fevers. Following meal plan per Dr. Urena Drain output ranging from 30-60cc per day this week. Wearing abdominal binder at all times. [facility] Medical History Narcolepsy Seasonal allergies PONV (postoperative nausea and vomiting) JANNY (obstructive sleep apnea) Periodic limb movement disorder Hypersomnia Anxiety and depression COVID-19 vaccine series completed BMI 34.0-34.9,adult BMI 39.0-39.9,adult Insomnia Seizures DJD (degenerative joint disease) Stress incontinence GERD (gastroesophageal reflux disease) Hyperlipidemia Sleep apnea with use of continuous positive airway pressure (CPAP) Non-insulin dependent type 2 diabetes mellitus Obesity Well woman exam Ovarian low malignant potential tumor Umbilical hernia Migraine Asthma Morbid obesity Pannus, abdominal Surgical History History of esophagogastroduodenoscopy (EGD) (12/22/24) History of lumpectomy of right breast (~2006) Hx of tonsillectomy (12/22/23) Hx laparoscopic cholecystectomy (07/29/23) S/P laparoscopic sleeve gastrectomy (01/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 Son No problems noted. Daughter No problems noted. Social History Household Members: Family Housing: House Are you a primary patient care representative to a significant other at home: Yes (children) Do you presently have visiting nurse or other home services: No 75 years or older and lives alone: No Alcohol intake: never Comment: counts correct Patient Tobacco Use Status: Never used Tobacco e-Cigarette/Vaping Use: Never Used service: No Female Reproductive History Menstrual Age of Menarche: 11 Physical Exam Vital Signs: Last Vital Signs Temp 98 F 08/01/25 14:24 Pulse 78 08/01/25 14:24 BP 122/74 08/01/25 14:24 Pulse Ox 100 08/01/25 14:24 Oxygen Delivery Method Room Air 08/01/25 14:24 Const General: cooperative, comfortable and no acute distress Orientation/consciousness: patient oriented x3 GI Other: soft, nontender, nondistended, incisions c/d/i, umbilicus viable, drain output SS Neuro General: patient oriented x3 Assessment & Plan Assessment & Plan (1) S/P panniculectomy: Code(s): Z98.890 - Other specified postprocedural states Category: Surgical (2) Overweight: Code(s): E66.3 - Overweight Category: Medical (3) S/P laparoscopic sleeve gastrectomy: Onset Date: 01/06/22 Comment: 01/06/22 Code(s): Z98.84 - Bariatric surgery status Category: Surgical Plan Continue high protein diet. ABX keflex 500 BID x 2 weeks, extended as needed?(at least until drain comes out plus 1 week).? Drain out after consistently 20 mL or less daily.? Abdominal binder at all times except for care x 1 month?MINIMUM. If there are concerns longer.? No driving?until drain out.? No walking outside or exercise for 6 weeks minimum. Walking in the house ok. Assistance getting up for 4 weeks minimum.?No lifting greater than?10 pounds x 2 months and no abdominal exercises x 3 months. We discussed that the operation had increased difficulty due to excess subcutaneous fat including that of flanks. We discussed the importance of following the meal plan EXACTLY as given by Dr. Fisher. We discussed that good nutrition is imperative to healing and recovery.
[2025-08-01 14:24] VITALS: BP 122/74; PULSE 78; TEMP 36.6; O2SAT 100
--- OUTSIDE RECORDS SUMMARY | 2025-08-01 17:23 | XMS_ITS | Encounter Summary ---
Author Organization [id number] Address [address] [facility] [address] [place] [address] Care Team Providers Care Beveler Name Role Phone Simona Ribeiro MD Primary Care Provide r Reason for Visit * Reason Onset Date Comments Home Care Services 12/07/2022 I called the pt regarding a Physician Summary Form, from [employer]. She stated that she does not [...] (Late st Contact Info) Description 12/07/2022 Telephone [facility] MEDICINE [address] [place] [address] Simona Ribeiro MD [address] [place], [place] [phone] Home Care Services (I called the pt regarding a Physician Summary Form, from [employer]. She stated that she does not [...] Care Team (Late st Contact Info) Description 11/22/2025 3:30 PM EST Office Visit [facility] OPTOMETRY [address] [place] [address] Ren, Jessika, OD [address] [place] [address] 12/25/2025 8:00 AM EDT Office Visit [facility] ADULT DENTAL [address] [place] [address] Leandro, Halina [address] [place] [address] documented as of this encounter Visit Diagnoses Not on filedocumented in this encounter Care Teams Beveler Relationship Specialty Start Date End Date Simona Ribeiro MD [address] [place] [address] PCP - General Family Medicine 07/21/19 [employer] 02/22/24 documented as of this encounter
--- OUTSIDE RECORDS SUMMARY | 2025-08-01 17:23 | XMS_ITS | Encounter Summary ---
Author Organization [employer] Address [address] [facility] [address] [place] [address] Care Team Providers Care Licensed Acupuncturist Name Role Phone Simona Ribeiro MD Primary Care Provide r Encounter Details Date Type Department Care Team (Late Contact Info) Description 06/14/2023 Orders Only [facility] MEDICINE [address] [place] [address] Nemo Patel Social History Tobacco Use Types [...] Description 11/22/2025 3:30 PM EST Office Visit [facility] OPTOMETRY [address] [place] [address] Jessika Mcclure, OD [address] [place] [address] 12/25/2025 8:00 AM EDT Office Visit [facility] ADULT DENTAL [address] [place] [address] Halina Reeves [address] [place] [address] documented as of this encounter Procedures Procedure Name Priority Date/Time Associated Diagnosis Comments HM PAP/HPV Routine 08/18/2021 12:00 AM EST documented in this encounter Results * Pap Smear (08/18/2021 12:00 AM EST) us Historical Provider HEALTH MAINTENANCE Final Result documented in this encounter Visit Diagnoses Not on filedocumented in this encounter Care Teams Licensed Acupuncturist Relationship Specialty Start Date End Date Simona Ribeiro MD [address] [place] [address] PCP - General Family Medicine 07/21/19 [employer] (Work) 02/22/24 documented as of this encounter
--- OUTSIDE RECORDS SUMMARY | 2025-08-01 17:23 | XMS_ITS | Encounter Summary ---
Author Organization [employer] Address [address] [facility] [address] [place] [address] Care Team Providers Care Drying Machine Receiver Name Role Phone Simona Ribeiro MD Primary Care Provide r Encounter Details Date Type Department Care Team (Latest Contact Info) Description 10/04/[address] [facility] CONVERSIONS Dental, Provider, DDS Social History Tobacco [...] Description 11/22/2025 3:30 PM EST Office Visit [facility] OPTOMETRY [address] [place] [address] Ren, Jessika, OD [address] [place] [address] 12/25/2025 8:00 AM EDT Office Visit [facility] ADULT DENTAL [address] [place] [address] Leandro, Halina [address] [place] [address] documented as of this encounter Visit Diagnoses Not on filedocumented in this encounter Care Teams Drying Machine Receiver Relationship Specialty Start Date End Date Simona Ribeiro MD [address] [place] [address] PCP - General Family Medicine 07/21/19 [employer] 02/22/24 documented as of this encounter
--- OUTSIDE RECORDS SUMMARY | 2025-08-01 17:23 | XMS_ITS | Clinical Summary ---
Author Organization [facility] it Address [address] [place] [address] Care Team Providers Care Prison Psychiatrist Name Role Phone Cecilia Zee [facility] Primary Care Provider [phone] Surgical History Surgery Date Site/Laterality Comments OVARIAN [...] Depression Screening 09/20/2024 COVID-19 Vaccine (1 - 2024-2 6 season) 2025 Influenza Vaccine (#1) 2025 RSV [...] AM EDT Narrative 07/09/2019 4:44 PM EDT [facility] Diagnostic Imaging Department [address] [place] [id number] Patient: ROBERTO ELIZALDE /Age/Sex: 1980 - 39 - F Unit#: [id number] Location/Status: SPDIMAM/PRE CLI Mnemonic/Ordering Site: [facility] Ordering Physician: REI DELACRUZ CNM [facility] Screening Digital - 07/08/1954 EXAM: [facility] Screening Digital EXAM DATE AND TIME: 07/08/2019 9:20 AM HISTORY: Screening. Reduction mammoplasty in 2007. Paternal grandmother had breast carcinoma. COMPARISON: Previous mammograms done in [place] are not available per the patient. TECHNIQUE: CC and MLO views of both breasts were obtained using full field digital mammography. Bilateral digital breast tomosynthesis was performed in the MLO projection. Computer aided detection with the [employer] 7.2-H was employed. TISSUE DENSITY: a. The [...] Routine screening mammogram BILATERAL in 1 year. [id number], [id number] 3342F, 7025F Dictating Physician: ALIS POWER MD Electronically Signed by: ALIS POWER MD Dic Date/Time: 07/09/19 1643 Sign date/Time: 07/09/19 1644 Procedure Note Alis Power - 09/08/2022 [facility] Diagnostic Imaging Department [address] [place] [id number] Patient: TONIOROBERTO D.O.B./Age/Sex: 1980 - 39 - F Unit#: [id number] Location/Status: SPDIMAM/PRE CLI Mnemonic/Ordering Site: [facility] Ordering Physician: REI DELACRUZ CNM [facility] Screening Digital - 07/08/19 - 54 EXAM: [facility] Screening Digital EXAM DATE AND TIME: 07/08/2019 9:20 AM HISTORY: Screening. Reduction mammoplasty in 2007. Paternal grandmotherhad breast carcinoma. COMPARISON: Previous mammograms done in [place] are not available perthe patient. TECHNIQUE: CC and MLO views of both breasts were obtained using fullfield digital mammography. Bilateral digital breast tomosynthesis was performedin the MLO projection. Computer aided detection with the [employer] 7.2[employer] employed. TISSUE DENSITY: a. The breasts are [...] Routine screening mammogram BILATERAL in 1 year. [id number], 33385 3342F, 7025F Dictating Physician: ALIS POWER MD Electronically Signed by: ALIS POWER MD Dic Date/Time: 07/09/19 1643 Sign date/Time: 07/09/19 1644 Rei Delacruz CNM IMG BI PROCEDURES Final Resul t * Pap smear (07/06/2019) 07/06/2019 Narrative HISTORICAL TESTING LAB RESULTING AGENCY - 07/10/2019 1:05 PM EDT [id number] THINPREP PAP, IMAGED: NEGATIVE FOR SQUAMOUS INTRAEPITHELIAL [...] Recently Relevant to Health Maintenance Care Teams Prison Psychiatrist Relationship Specialty Start Date End Date Cecilia Zee FNP [address] [place] [address] PCP - General Internal Medicine 04/27/19
--- OUTSIDE RECORDS SUMMARY | 2025-08-01 17:23 | XMS_ITS | Clinical Summary ---
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 Allergic reaction occurred when pt was 12 years old and occurred in [place]. Penicillin G 12/06/2023 Penicillins Anaphylaxis,Hives High 07/12/2018 [...] g 023 Active Blood Glucose Monitoring Suppl (Astonish ResultsStyle Lite) w/Device kit 1 each in the [...] 024 Active ergocalciferol (Vitamin D-2) 1.25 MG (25328 UT) capsuleIndication s:Vitamin D deficiency Take 1 [...] into vagina at bedtime for 7 nights (THAI) 45 g 025 Active lidocaine (Lidoderm) 5 [...] at bedtime. 30 tablet 5 025 Active gabapentin (Neurontin) 400 MG capsuleIndication s:Fibromyalgia TAKE 1 CAPSULE BY MOUTH THREE TIMES A DAY 90 capsule 3 025 Active FreeStyle lancetsIndication s:Prediabetes TEST BLOOD SUGAR TWICE A DAY 100 each 025 Active FREESTYLE LITE test stripIndications: Prediabetes TEST BLOOD SUGAR TWICE A DAY 100 each 025 Active Ketotifen Fumarate 0.035 % solutionIndicatio ns:Allergic conjunctivitis of both eyes Administer 1 drop into affected eye(s) every 12 (twelve) hours if needed (apply on each eye as needed). 10 mL 1 025 Active triamcinolone (Kenalog) 0.1 % creamIndications: Allergic dermatitis Apply topically if needed in the morning and at bedtime (pain and swelling). 30 g 2 Active metFORMIN (Glucophage) 500 MG tabletIndications :Prediabetes TAKE 1 TABLET BY MOUTH TWICE A DAY WITH IN THE MORNING AND IN THE EVENING MEALS 60 tablet 5 Active metFORMIN (Glucophage) 500 MG tabletIndications :Prediabetes TAKE 1 TABLET BY MOUTH TWICE A DAY WITH MORNING AND EVENING MEALS 180 tablet 2024 Discontinued Active Problems Problem Noted Date [...] chronic allergic conjunctivitis 11/01/2023 History of dental jainism 10/06/2023 Missing teeth, acquired 09/14/2023 Acute bacterial [...] Encounters Date Type Department Care Team Description 07/26/2025 Refill [facility]IC[facility] [address] [place] [address] Simona Ribeiro MD Prediabetes 07/24/2025 Orders Only GENERIC EXTERNAL DATA DEPARTMENT Provider, Generic External Data 07/20/2025 Orders Only GENERIC EXTERNAL DATA DEPARTMENT Provider, Generic External Data 07/17/2025 Telephone [facility] [address] [place] [phone] Simona Ribeiro MD Care Coordination (Home Health Care Utilization) 07/16/2025 Telephone [facility] [address] [place] [phone] Simona Ribeiro MD fyi 07/16/2025 Telephone [facility] [address] [place] [phone] Simona Ribeiro MD Care Coordination (Home Care Utilization ) 07/11/2025 Telephone [facility] [address] [place] [phone] Simona Ribeiro MD 07/02/2025 Refill [facility] [address] [place] [address] Simona Ribeiro MD Prediabetes; Allergic conjunctivitis of both eyes; Allergic dermatitis 06/28/2025 Refill [facility] [address] [place] [address] Simona Ribeiro MD Fibromyalgia 06/25/2025 8:45 AM EDT Office Visit [facility] ADULT DENTAL [address] [place] [phone] aHlina Reeves Dental plaque (Primary Dx); Missing teeth, acquired; Normal oral exam 06/18/2025 Travel 05/03/2025 Refill [facility] [address] [place] [phone] Simona Ribeiro MD Prediabetes from Last 3 [...] Description 11/22/2025 3:30 PM EST Office Visit [facility] OPTOMETRY [address] [place] [address] Ren, Jessika, OD [address] [place] [address] 12/25/2025 8:00 AM EDT Office Visit [facility] ADULT DENTAL [address] [place] [address] Leandro, Halina [address] [place] [address] Health Maintenance Due Date Last Done Comments [...] Procedure Name Priority Date/Time Associated Diagnosis Comments GROSS AND MICROSCOPIC LEVEL 3 Routine 07/24/2025 1:58 PM EST GLUCOSE, WHOLE BLOOD Routine 07/24/2025 10:42 AM EST COMPREHENSIVE METABOLIC PANEL Routine 07/20/2025 8:00 AM EDT APTT Routine 07/20/2025 8:00 AM EDT PROTHROMBIN TIME-INR Routine 07/20/2025 8:00 AM EDT CBC WITH AUTO DIFFERENTIAL Routine 07/20/2025 8:00 AM EDT TYPE AND SCREEN Routine 07/20/2025 7:51 AM EDT PERIODIC ORAL EVALUATION - ESTABLISHED PATIENT Routine [...] complication, without long-term current use of insulin ([facility]) BI MAMMOGRAM SCREENING TOMOSYNTHESIS BILATERAL Routine 02/16/2025 7:52 AM EDT INTRAORAL - COMPLETE SERIES OF RADIOGRAPHIC IMAGES Routine 09/14/2023 1:00 PM EST Missing teeth, acquired ZZZ HISTORICAL HPV E6/E7 RFLX DANNY 16 18/45 Routine 08/18/2021 10:17 AM EST HM PAP/HPV Routine 08/18/2021 12:00 AM EST from Last 3 Months or Most Recently Relevant to Health Maintenance Results * Gross and Microscopic Level 3 (07/24/2025 1:58 PM EST) 07/24/2025 1:58 PM EST 07/25/2025 8:00 AM EST [facility]S - 07/27/2025 10:41 AM EST ----- ------- Name: Regina Willson Age/Sex: 45/F : 1980 [facility]#: [id number] Unit#: [id number] Attend Dr: El Fisher MD Re07/24/25 Status: [facility] Location: [facility] Disch: ----- ------- SPEC : [id number] RECD: 07/25/25 STATUS: DINORA PERRY NUM: [id number] REAGAN: 07/24/25-[address] [facility] DR: El Fisher MD ENTERED: 07/25/25 SP TYPE: Surgical OTHR DR: Simona Ribeiro MD ORDERED: Gross Micro L3 Diagnosis Pannus, panniculectomy: Benign skin, and subcutaneous tissue with focal fat necrosis, otherwise with no specific change. Clinical History Excessive and redundant skin and subcutaneous tissue Microscopic Description Microscopic sections reviewed. Material Received Pannus Gross Description Received in formalin labeled pannus is a 30 x 24.5 x 6.2 cm portion of lobulated yellow adipose tissue covered on one side by curry-white skin weighing 1740 g. The skin surface is intact and smooth with areas of white stretching. A defect is noted in the skin surface at a distance of 2.5 cm from the nearest margin that measures 3.5 x 1.5 cm. The underside is composed of lobulated yellow adipose tissue. Sectioning reveals a yellow, fatty cut surface that is traversed by bands of white fibrous tissue. No cysts or nodules are identified. Whipped Topping Mixer sections are submitted for microscopic examination in cassettes A1 through A3, 1 piece each. ([facility]) IHC S/NG Disclaimer NOTE: Unless otherwise stated, all tissue is formalin-fixed and paraffin-embedded. Some or all of the immunohistochemical tests reported herein may have been developed and their performance characteristics determined by [facility]. They have not been cleared or approved by the U.S. Food and Drug Administration (FDA). However, the FDA has determined that such clearance or approval is not necessary. This laboratory is certified under the Clinical Laboratory Improvement Amendments of 1988 (CLIA) as qualified to perform high complexity clinical laboratory testing. Copies To: Simona Ribeiro MD [address] [address] CONTINUED ON NEXT PAGE ----- ------- Name: Regina Willson Age/Sex: 45/F : 1980 Unit#: [id number] Attend Dr: El Fisher MD Re07/24/25 Status: [facility] Location: [facility] Disch: ----- ------- SPEC : [id number] RECD: 07/25/25 STATUS: DINORA PERRY NUM: [id number] REAGAN: 07/24/[address] [facility] DR: El Fisher MD ENTERED: 07/25/25 SP TYPE: Surgical OTHR DR: Simona Ribeiro MD ORDERED: Gross Micro L3 Copies To: (Continued) El Fisher MD [facility] Weight [facility] [address] [place] [phone] ----- ------- Signed (signature on file) [place] [place] 07/27/25 1041 ----- ------- END OF REPORT Generic External Data Provider LAB CYTOLOGY ORDE RABLES Final Result Performing Organization Address [facility] Co de Phone Number [facility] [address] [place] [address] [phone] * Glucose, Whole Blood (07/24/2025 10:42 AM EST) [facility] Glucose, Whole Blood 70 60 - 115 mg/dL [facility] Comment:METER #: [id number] 07/24/2025 10:4 2 AM EST 07/24/2025 10:46 AM EST Generic External Data Provider LAB BLOOD ORDERAB LES Final Result Performing Organization Address [facility] Co de Phone Number [facility] [address] [place], [place] [phone] * (ABNORMAL) CBC auto differential (07/20/2025 8:00 AM EDT) [facility] White Blood Count 5.3 4.8 - 10.8 X10*3/uL [facility] Red Blood Count 4.95 4.20 - 5.50 X10*6/uL [facility] Hemoglobin 14.3 12.0 - 16.0 g/dl [facility] Hematocrit 44.7 37.0 - 47.0 % [facility] Mean Corpuscular Volume 90.3 80.0 - 98.0 fL [facility] Mean Corpuscular Hemoglobin 28.9 27.0 - 33.0 pg [facility] Mean Corpuscular HGB Conc 32.0 31.0 - 35.0 g/dl [facility] Red Cell Distribution Width 13.4 11.0 - 16.0 % [facility] Platelet Count 316 160 - 400 X10*3/uL [facility] Mean Platelet Volume 10.0 9.4 - 12.3 fL [facility] Neutrophils Percent Auto 41.1(L) 45 - 73 % [facility] Imm Gran Pct Auto 0.2 0.0 - 0.4 % [facility] Lymphocytes Percent Auto 49.3(H) 20 - 40 % [facility] Monocytes Percent Auto 6.9 2 - 11 % [facility] Eosinophils Percent Auto 1.5 0 - 4 % [facility] Basophils Percent Auto 1.0 0 - 2 % [facility] NRBC Pct Auto 0.0 0.0 - 0.2 /100WBC [facility] Neutrophils Absolute Auto 2.2 2.0 - 8.3 x10*3/uL [facility] Imm Gran Abs Auto 0.01 0.00 - 0.03 X10*3/uL [facility] Lymphocytes Absolute Auto 2.6 1.2 - 4.9 X10*3/uL [facility] Monocytes Absolute Auto 0.4 0.1 - 1.2 X10*3/uL [facility] Eosinophils Absolute Auto 0.1 0.0 - 0.4 X10*3/uL [facility] Basophils Absolute Auto 0.1 0.0 - 0.2 X10*3/uL [facility] NRBC Abs Auto 0.000 0.0 - 0.012 X10*3/uL [facility] 07/20/2025 8:00 AM EDT 07/20/2025 8:00 AM EDT Generic External Data Provider LAB BLOOD ORDERAB LES Final Result Performing Organization Address [facility] Co de Phone Number [facility] [address] [place] [phone] * (ABNORMAL) Partial Thromboplastin Time, Activated (APTT) (07/20/2025 8:00 AM EDT) Partial Thromboplastin Time 25.2(L) 26.7 - 34.1 SEC [facility] 07/20/2025 8:00 AM EDT 07/20/2025 8:00 AM EDT Generic External Data Provider LAB BLOOD ORDERAB LES Final Result Performing Organization Address [facility] de Phone Number [facility] [address] [place] [phone] * (ABNORMAL) Prothrombin Time-INR (07/20/2025 8:00 AM EDT) Prothrombin Time 10.7(L) 10.9 - 12.4 SEC [facility] INTERNATIONAL NORM RATIO 0.9 0.9 - 1.1 [facility] Comment:INTERNATIONAL NORMAL IZED RATIO (INR) REFERENCE RANGES Reference RangeFor patients not on anticoagulant therapy: 0.9 - 1.1INR ranges for oral anticoagulanttherapy:For prevention and treatment of venous thrombosis and pulmonary embolism: 2.0 - 3.0For acute myocardial infarction with aspirin therapy: 2.0 - 3.0For acute myocardial infarction without aspirin therapy: 3.0 - 4.0For patients with mechanical prosthetic heart valves: 2.5 - 3.5 07/20/2025 8:00 AM EDT 07/20/2025 8:00 AM EDT Generic External Data Provider LAB BLOOD ORDERAB LES Final Result Performing Organization Address [facility]/ZIP Co de Phone Number [facility] [address] [place] [address] [phone] * Comprehensive Metabolic Panel (07/20/2025 8:00 AM EDT) Sodium 143 135 - 145 mmol/L [facility] Potassium 3.8 3.3 - 5.1 mmol/L [facility] Chloride 107 96 - 108 mmol/L [facility] Carbon Dioxide 28 22 - 29 mmol/L [facility] Anion Gap 12 12 - 20 [facility] Urea Nitrogen (BUN) 12 9 - 16 mg/dL [facility] Creatinine, Serum 0.82 0.5 - 1.4 mg/dL [facility] Creatinine Clr Calc Pharmacy 75.8 [facility] Comment:Provided height and weight: 157.48 cm,63.503 kg.eGFR (calculated from the MDRD study equation) and eCrCl(calculated from the Cockcroft-Gault equation) are based ondifferent parameters and may not yield comparable results.If eCrCl result is absurd, please check patient'sheight/weight. Estimated Glomerular Filt Rate >60 [facility] Comment:Chronic Kidney Disea se: Estimated GFR < 60 mL/min/1.72q8Wqpcgg Kidney Disease: Estimated GFR < 15 mL/min/1.73m2 Glucose 85 60 - 115 mg/dL [facility] Calcium 10.1 8.4 - 10.2 mg/dL [facility] Bilirubin, Total 0.7 0.0 - 1.0 mg/dL [facility] Aspartate Amino Transferase 23 5 - 31 U/L [facility] Alanine Aminotransferase 22 0 - 31 U/L [facility] Total Protein 7.5 6.5 - 8.0 g/dL [facility] Albumin Level 4.8 3.5 - 5.0 g/dL [facility] Alkaline Phosphatase 67 39 - 117 U/L [facility] 07/20/2025 8:00 AM EDT 07/20/2025 8:00 AM EDT us Generic External Data Provider LAB BLOOD ORDERAB LES Final Result Performing Organization Address [facility] Co de Phone Number [facility] [address] [place] [phone] * Type and screen (07/20/2025 7:51 AM EDT) Blood Type AP [facility] Antibody Screen NEGATIVE [facility] 07/20/2025 7:51 AM EDT 07/20/2025 8:03 AM EDT Narrative [facility] - 07/20/2025 9:04 AM EDT Spec expiration changed by ALEJANDRO on 07/20/25Reason: PATNURSING:Call Blood Bank (ext. [phone]) to band patient on admission.Type and Screen in effect until 2300 on 07/24/2025Witnessed by YUMIKO us Generic External Data Provider LAB BLOOD BANK TE ST ORDERABLES Final Result Performing Organization Address [facility] Co de Phone Number [facility] [address] [place] [phone] * Hepatitis C Antibody with Reflex to HCV, RNA, Quantitative, Real-Time PCR (02/28/2025 8:27 AM EDT) Pathologist [facility] Hepatitis C Antibody Nonreactive Nonreactive [facility] Comment:Antibodies to HCV no t detected; does not exclude early acuteHCV infection. Blood Venous blood specimen / Unknown 02/28/2025 8:27 AM EDT 02/28/2025 8:27 AM EDT us Simona Gaston MD LAB BLOOD ORDERABLES Final Result Performing Organization Address [facility] Co de Phone Number [facility] [address] [place] [address] [phone] * HIV-1/2 Antigen and Antibodies, Fourth Generation, with Reflexes (02/28/2025 8:27 AM EDT) HIV AB/AG Nonreactive Nonreactive [facility] Comment:HIV-1 p24 Ag and/or HIV-1/HIV-2 Ab not detected.A test result that is nonreactive does not exclude thepossibility of exposure to or infection with HIV-1 and/orHIV-2. Nonreactive results in this assay for individualswith prior exposure to HIV-1 and/or HIV-2 may be due toantigen and antibody levels that are below the limit ofdetection of this assay.The TrueInsider HIV Ag/Ab Combo assay result andsupplemental assay results should be interpreted inconjunction with the patient's clinical presentation,history and other laboratory results. If the results areinconsistent with clinical evidence, additional testing issuggested to confirm the result. Blood Venous blood specimen / Unknown 02/28/2025 8:27 AM EDT 02/28/2025 8:27 AM EDT Simona Gaston MD LAB BLOOD ORDERABLES Final Result [facility] [address] [place] [phone] * Hemoglobin A1c (02/28/2025 8:27 AM EDT) Hemoglobin A1c 5.5 <6.0 % [facility] Comment:Hemoglobin A1C Refer ence Range Adults: 4.8 - 6.0 % Non diabetic: < 6.0 % Goal: < 7.0 %Additional Action Suggested: > 8.0 %Note: Hemoglobin A1c results are invalid for patients with abnormal amounts of HbF. Blood transfusions may impact the HbA1c concentration in the patient sample. Estimated Average Glucose 111 mg/dL [facility] Comment:eAG = Estimated ave rage glucose which is %A1C expressed asaverage glucose, using the formula of the H3G-ItnnxcmTqtqjoe Glucose study (ADAG), Diabetes Care, Vol.31,#8,Apr. 2007 02/28/2025 8:27 AM EDT 02/28/2025 8:27 AM EDT us Generic External Data Provider LAB BLOOD ORDERAB LES Final Result [facility] [address] [place] [address] [phone] * (ABNORMAL) Lipid Panel, Standard (02/28/2025 8:27 AM EDT) Triglycerides 93 <150 mg/dL [facility] Comment:Desirable Triglyceri de: less than 150 mg/dLBorderline High Triglyceride 150-199 mg/dLHigh Triglyceride: 200-499 mg/dLVery High Triglyceride: greater than or equal to 5OO mg/dL Cholesterol 221(H) <200 mg/dL [facility] Comment:Desirable Cholestero l: less than 200 mg/dLBorderline High Cholesterol: 200-239 mg/dLHigh Cholesterol: greater than 239 mg/dL LDL Cholesterol Calculated 153(H) <100 mg/dL [facility] Comment:Desirable LDL: less than 100 mg/dLNear Optimal/Above Optimal LDL: 110- 129 mg/dLBorderline High LDL: 130-159 mg/dLHigh LDL: 160-189 mg/dLVery High LDL: greater than or equal to 190 mg/dL HDL Cholesterol 50 >40 mg/dL [facility] Comment:Desirable HDL: great er than 40 mg/dL Note: This HDL assay may give artificially low results in patients with liver disease. Blood Venous blood specimen / Unknown 02/28/2025 8:27 AM EDT 02/28/2025 8:27 AM EDT us Simona Gaston MD LAB BLOOD ORDERABLES Final Result [facility] [address] [place] [address] [phone] * Albumin, Random Urine W/Creatinine (02/28/2025 8:20 AM EDT) Creatinine, Urine 520.55 mg/dL [facility] Microalbumin Urine 49.0 mg/L [facility] Microalbum Creatinine Ratio Ur 9.4 <30 ug/mg cr [facility] Comment:Albumin/Creatinine R atio Reference Ranges: Normal: < 30 ug/mg creatinine Microalbuminuria: 30 - 300 ug/mg creatinineClinical Albuminuria: > 300 ug/mg creatinine Urine (Urine, Random) 02/28/2025 8:20 AM EDT 02/28/2025 9:10 AM EDT us Simona Gaston MD LAB URINE ORDERABLES Final Result [facility] [address] [place] [address] [phone] * BI Mammogram Screening Tomosynthesis Bilateral (02/16/2025 7:52 AM EDT) Anatomical Region Laterality Modality Breast Bilateral Mammography 02/16/2025 7:52 AM EDT Narrative 02/23/2025 5:07 PM EDT [address] [place] [address] Mammography Report Signed Patient: Regina Willson MR#: [id number] : 1980 Acct:[id number] Age/Sex: 44 / F ADM Date: 02/16/25 Loc: HO.MAMMO Attending Dr: Luis Carlos Adrian MD Ordering Physician: Luis Carlos Adrian MD Results: 2Beni gn Findings Date of Service: 02/16/25 Follow Up: 1 Year From [facility] ina Mammogram Procedure(s): MM tomosynthesis screening BI Accession Number(s): [id number] cc: Simona Ribeiro MD; Luis Carlos Adrian [...] 02/23/25 1704 DD/ 0752 TD/TT: 02/16/25 0805 Account Manager Trainee: Procedure Note Donotuseinterpreter, Image - 02/23/2025 Angel Luis [facility] [address] [place] [address] Mammography Report Signed Patient: Regina WillsonMR#: [id number] : 1980Acct:[id number] Age/Sex: 44 / FADM Date: 02/16/25 Loc: HO.MAMMO Attending Dr: Luis Carlos Adrian MD Ordering Physician: Luis Carlos Adrian MDResults: 2Beni gn Findings Date of Service: 02/16/25Follow Up: 1 Year From [facility] Mammogram Procedure(s): MM tomosynthesis screening BI Accession Number(s): [id number] cc: Simona Ribeiro MD; Luis Carlos Adrian [...] 02/23/25 1704 DD/ 0752 TD/TT: 02/16/25 0805 Account Manager Trainee: [facility] External Provider IMG BI PROCEDURES Final Result * HPV E6/E7 RFLX DANNY 16 18/45 (08/18/2021 10:17 AM EST) HPV 16 RNA TNP [facility] HPV 18/45 RNA [facility]NP [facility] HPV E6 E7 ADD TNP [facility] HPV mRNA E6/E7 rflx Not Detected Not Detected [facility] Comment: Methodology: [employer]-Mediated Amplification This assay detects E6/E7 viral messenger RNA (mRNA) from 14 high-risk HPV types (16,18,31,33,35,39,45,51,52,56,58,59,66,68). The analytical performance characteristics of this assay have been determined by [employer]. The modifications have not been cleared or approved by the FDA. This assay has been validated pursuant to the CLIA regulations and is used for clinical purposes. For additional information, please refer to http://education.Talentwire/faq/ZSP165o3 (This link if provided for information/ educational purposes only.) THIS TEST WAS PERFORMED AT: [facility] [address] [place] [address],[place] [address] JASWINDER PAUL MD 08/18/2021 10:1 7 AM EST Ramesh Maki MD HISTORICAL/NON ORDERABLE LABS Fi nal Result [facility] [address] [place] [phone], * Hm Pap Smear (08/18/2021 12:00 AM EST) Historical Provider HEALTH MAINTENANCE Final Result from Last 3 Months or Most Recently Relevant to Health Maintenance Insurance [facility] C3 DENTAL-[facility] MEDICAID STAND ADULT Care Teams Fruit Thinner Machine Operator Relationship Specialty Start Date End Date Simona Ribeiro MD [address] [place] [phone] PCP - General Family Medicine 07/21/19 [employer] 02/22/24
--- OUTSIDE RECORDS SUMMARY | 2025-08-01 17:23 | XMS_ITS | Encounter Summary ---
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 Name Role Phone Simona Ribeiro MD Primary Care Provide r Reason for Visit * Reason Comments Med Refill Encounter Details Date Type Department Care Team (Late Contact Info) Description 12/22/2022 Refill [facility] [address] [place] [address] Rishabh Mcnally MD [address] [place] [address] Vaginal candidiasis Social History Tobacco Use Types [...] Department Care Team (Late Contact Info) Description 11/22/2025 3:30 PM EST Office Visit [facility] OPTOMETRY [address] [place] [address] Ren, Jessika, OD [address] [place] [address] 12/25/2025 8:00 AM EDT Office Visit [facility] ADULT DENTAL [address] [place] [address] Leandro, Halina [address] [place] [address] documented as of this encounter Visit Diagnoses Diagnosis Vaginal candidiasis Candidiasis of vulva and vagina documented in this encounter Care Teams Repairer Engine Production Relationship Specialty Start Date End Date Simona Ribeiro MD [address] [place] [address] PCP - General Family Medicine 07/21/19 [employer] 02/22/24 documented as of this encounter
== END 2025-08-01 14:57 | disposition home or self-care (01) ==
LOC: HO.HBS 14:09
PROVIDERS: PCP Internal Medicine; Visit Provider Physician Assistant Surgical
DX: E66.3 Overweight (principal); Z68.25 Body mass index [BMI] 25.0-25.9, adult; Z90.3 Acquired absence of stomach [part of]; Z98.84 Bariatric surgery status; Z98.890 Other specified postprocedural states
CPT/HCPCS: 99024

== ENCOUNTER → 2025-08-01 14:09 | Outpatient (BNVA) | payer MEDICAID, SELFPAY | PROVIDERS: PCP Internal Medicine; Visit Provider Physician Assistant Surgical | DX: Z48.817 Encounter for surgical aftercare following surgery on the skin and subcutaneous tissue (principal); E66.3 Overweight; Z98.84 Bariatric surgery status | CPT/HCPCS: 99212 ==

== ENCOUNTER 2025-08-08 15:09 | Outpatient (AMB) | payer MEDICAID, SELFPAY ==
--- NOTE | 2025-08-08 16:02 | A.OFFVIS_ITS ---
VS Expanded 08/08/25 16:03 BP 109/63 Blood Pressure Location Rt brachial Blood Pressure Position Sitting Pulse 63 Pulse Source Pulse Oximeter Temp 36.8 F L Temperature Source Temporal Artery Scan Pulse Oximetry 100 Oxygen Delivery Method Room Air Intake Visit Reasons: OV PO Panniculectomy 07/24/25 Director [employer] Required: Yes Director [employer] Services: Director [employer] Present Director [employer] Name: Jeff Moe [id number] Information Interpreted: clinical only Allergies Penicillins Allergy (Severe, Verified 07/18/25 09:48) Anaphylaxis seafood Allergy (Severe, Verified 07/18/25 09:48) Anaphylaxis, rash aspirin Allergy (Intermediate, Verified 07/18/25 09:48) Rash Medication List - Last Reconciled 08/08/25 by JO ANN Syed albuterol sulfate 90 mcg/actuation 2 puffs inhalation Q4-6H PRN amitriptyline 10 mg PO BEDTIME 30 days atorvastatin 20 mg PO DAILY betamethasone dipropionate 0.05% 1 appl topical DAILY PRN bupropion HCl 1 tab PO DAILY buspirone 5 mg PO BID vhsqtmqbuw-hagpznwfyeris-pano 50-325-40 mg 2 tabs PO DAILY PRN 30 days cholecalciferol (vitamin D3) 25 mcg PO DAILY ciprofloxacin HCl (Cipro) 500 mg PO Q12H citalopram 20 mg PO DAILY cyclobenzaprine 10 mg PO Q8H PRN divalproex ER (Depakote ER) 250 mg PO BEDTIME 90 days docusate sodium (Colace) 100 mg PO DAILY famotidine 20 mg PO BEDTIME gabapentin 300 mg PO BEDTIME hydroxyzine HCl 50 mg PO BID nystatin 1 appl topical QID ondansetron 4 mg PO DAILY PRN 30 days ondansetron 4 mg PO Q12H oxybutynin chloride 5 mg PO DAILY sennosides (senna) 8.6 mg PO DAILY thiamine HCl (vitamin B1) 100 mg PO DAILY tirzepatide (Mounjaro) 2.5 mg (0.5 mL) subcut QWEEK tizanidine 4 mg PO BID PRN 30 days verapamil ER 120 mg PO DAILY 30 days HPI Comments Details: Pt is 2w s/p panniculectomy 07/24/2025. Drain output around 30cc per day. No fev ers at home. Following meal plan. Wearing abdominal binder. Taking abx as directed. [facility] Medical History Narcolepsy Seasonal allergies PONV (postoperative nausea and vomiting) JANNY (obstructive sleep apnea) Periodic limb movement disorder Hypersomnia Anxiety and depression COVID-19 vaccine series completed BMI 34.0-34.9,adult BMI 39.0-39.9,adult Insomnia Seizures DJD (degenerative joint disease) Stress incontinence GERD (gastroesophageal reflux disease) Hyperlipidemia Sleep apnea with use of continuous positive airway pressure (CPAP) Non-insulin dependent type 2 diabetes mellitus Obesity Well woman exam Ovarian low malignant potential tumor Umbilical hernia Migraine Asthma Morbid obesity Pannus, abdominal Surgical History History of esophagogastroduodenoscopy (EGD) (12/22/24) History of lumpectomy of right breast (~2006) Hx of tonsillectomy (12/22/23) Hx laparoscopic cholecystectomy (07/29/23) S/P laparoscopic sleeve gastrectomy (01/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 Son No problems noted. Daughter No problems noted. Social History Household Members: Family Housing: House Are you a primary respiratory care assistant to a significant other at home: Yes (children) Do you presently have visiting nurse or other home services: No 75 years or older and lives alone: No Alcohol intake: never Comment: counts correct Patient Tobacco Use Status: Never used Tobacco e-Cigarette/Vaping Use: Never Used service: No Female Reproductive History Menstrual Age of Menarche: 11 Physical Exam Vital Signs: Last Vital Signs Temp 36.8 F L 08/08/25 16:03 Pulse 63 08/08/25 16:03 BP 109/63 08/08/25 16:03 Pulse Ox 100 08/08/25 16:03 Oxygen Delivery Method Room Air 08/08/25 16:03 Const General: cooperative, comfortable and no acute distress Orientation/consciousness: patient oriented x3 GI Other: soft, nontender, nondistended, panniculectomy incisions healing well, drain output SS Neuro General: patient oriented x3 Assessment & Plan Assessment & Plan (1) S/P panniculectomy: Code(s): Z98.890 - Other specified postprocedural states Category: Medical (2) Overweight: Code(s): E66.3 - Overweight Category: Medical Plan Continue high protein diet. ABX keflex 500 BID x 2 weeks, extended as needed?(at least until drain comes out plus 1 week).? Drain out after consistently 20 mL or less daily.? Abdominal binder at all times except for care x 1 month?MINIMUM. If there are concerns longer.? No driving?until drain out.? No walking outside or exercise for 6 weeks minimum. Walking in the house okay. Assistance getting up for 4 weeks minimum.?No lifting greater than?10 pounds x 2 months and no abdominal exercises x 3 months.
[2025-08-08 16:03] VITALS: BP 109/63; PULSE 63; TEMP 2.7; TEMP 36.8; O2SAT 100
--- OUTSIDE RECORDS SUMMARY | 2025-08-09 03:43 | XMS_ITS | Encounter Summary ---
Author Organization [employer] Address [address] [facility] [address] [place] [address] Care Team Providers Care Care Transition Mgr Name Role Phone Simona Ribeiro MD Primary Care Provide r Iraida Alanis RN Unavailable [phone] Anne Trinh Unavailable Reason for Visit * Reason Comments Care Management C3 -CHART REVIEW Encounter Details Date Type Department Care Team (Late st Contact Info) Description 08/07/2025 Patient Outreach [facility] [address] [place], [place] [phone] Simona Ribeiro MD [address] [place], [place] [phone] Care Management (C3 -CHART REVIEW ) Social History Tobacco Use Types Packs/Day Years [...] before you got money to buy more: Sometimes True 2024 Within the past 12 months,th e food you bought just didn't last and you didn't have enough money to get more: Sometimes True 08/07/2025 Transportation Answer Date Recorded In the past [...] as of this encounter Progress Notes * Iraida Alanis RN - 08/07/2025 8:03 AM EST LUCILA Alanis RN, performed chart review, in anticipation of initial assessment with patient, as patient has stratified for Adult Complex Care through Home Care Utilization Referral. History significant for Patient Active Problem List Diagnosis Date Noted Acute pharyngitis 06/25/2025 Kidney disease 06/25/2025 Narcolepsy with cataplexy 06/25/2025 Primary insomnia 06/25/2025 Somnambulism 06/25/2025 Upper respiratory infection 06/25/2025 Type 2 diabetes mellitus without complication, without long-term current use of insulin (HCC) 02/05/2025 Encounter for preventive care 02/05/2025 Chronic left shoulder pain 02/05/2025 Right hand pain 11/02/2024 Class 1 obesity due to excess calories with serious comorbidity and body mass index (BMI) of 31.0 to 31.9 in adult 11/02/2024 Dental plaque 09/05/2024 Obesity (BMI 30-39.9) 04/27/2024 Chronic pain of right knee 04/27/2024 Normal oral exam 01/31/2024 Hair loss 01/31/2024 Other fatigue 01/31/2024 Hypoglycemia, unspecified 11/01/2023 Other chronic allergic conjunctivitis 11/01/2023 History of dental mormon 10/06/2023 Missing teeth, acquired 09/14/2023 Acute bacterial conjunctivitis of right eye 07/27/2023 Acute pain of right shoulder 05/03/2023 Forgetfulness 05/03/2023 Seizure disorder (CMS/HCC) (HCC) 01/28/2023 Fibromyalgia 01/28/2023 Allergic conjunctivitis of both eyes 01/28/2023 Annual physical exam 12/07/2022 Low back pain 09/01/2022 Allergic dermatitis 09/01/2022 Lumbosacral radiculopathy 09/01/2022 Migraine without aura, not refractory 09/01/2022 Mild intermittent asthma 09/01/2022 Narcolepsy without cataplexy 09/01/2022 Prediabetes 09/01/2022 Rosacea 09/01/2022 Family history of breast cancer 07/06/2019 Allergic rhinitis 04/20/2019 Dysphagia 04/20/2019 Hyperlipidemia 04/20/2019 Hyperuricemia 04/20/2019 Pain in lower limb 04/20/2019 Gastroesophageal reflux disease without esophagitis 08/24/2018 Chronic back pain 07/12/2018 Constipation 07/12/2018 Diverticular disease 07/12/2018 Dizziness 07/12/2018 Gastritis 07/12/2018 Increased frequency of urination 07/12/2018 Kidney stone 07/12/2018 Migraine 07/12/2018 Mood disorder (CMS/HCC) 07/12/2018 Petechial rash 07/12/2018 Sciatica 07/12/2018 Vitamin D deficiency 07/12/2018 Sleep apnea 03/18/2017 Specialists include [facility], [facility], [facility]. No recent ED visits within the last 12 months. Last appointment in PCP office on 02/05/25. No upcoming appointments with PCP. documented in this encounter Plan of Treatment Upcoming Encounters Date Type Department Care Team (Late st Contact Info) Description 11/22/2025 3:30 PM EST Office Visit [facility] [address] [place] [address] Jessika Mcclure, OD [address] [place] [address] 12/25/2025 8:00 AM EDT Office Visit [facility] DENT[facility] [address] [place] [address] Leandro, Halina [address] [place] [address] documented as of this encounter Visit Diagnoses Not on filedocumented in this encounter Additional Health Concerns Assessment Noted Time PHQ-9 Depression Total Score: 22 025 1:30 PM EST documented as of this encounter Care Teams Care Transition Mgr Relationship Specialty Start Date End Date Simona Ribeiro MD [address] [place] [address] PCP - General Family Medicine 07/21/19 Iraida Alanis RN [address] [place] [address] Registered Nurse Family Medicine 08/07/25 Anne Trinh 08/07/25 [employer] 02/22/24 documented as of this encounter
--- OUTSIDE RECORDS SUMMARY | 2025-08-09 03:43 | XMS_ITS | Encounter Summary ---
Author Organization [employer] Address [address] [facility] [address] [place] [address] Care Team Providers Care Traffic Signal Mechanic Name Role Phone Simona Ribeiro MD Primary Care Provide r Iraida Alanis RN Unavailable [phone] Anne Trinh Unavailable Encounter Details Date Type Department Care Team (Late Contact Info) Description 06/14/2023 Orders Only [facility] [address] [place], [place] [phone] Nemo Patel Social History Tobacco Use Types [...] Description 11/22/2025 3:30 PM EST Office Visit [facility] [address] [place], [place] [phone] Ren, Jessika, OD [address] [place], [place] [phone] 12/25/2025 8:00 AM EDT Office Visit [facility] ADULT D[facility] [address] [place] [address] Halina Reeves [address] [place] [address] documented as of this encounter Procedures Procedure Name Priority Date/Time Associated Diagnosis Comments HM PAP/HPV Routine 08/18/2021 12:00 AM EST documented in this encounter Results * Hm Pap Smear (08/18/2021 12:00 AM EST) Historical Provider HEALTH MAINTENANCE Final Result documented in this encounter Visit Diagnoses Not on filedocumented in this encounter Care Teams Traffic Signal Mechanic Relationship Specialty Start Date End Date Simona Ribeiro MD [address] [place] [address] PCP - General Family Medicine 07/21/19 Iraida Alanis RN [address] [place] [address] Registered Nurse Family Medicine 08/07/25 Anne Trinh 08/07/25 Abigail Stewart 02/22/24 documented as of this encounter
--- OUTSIDE RECORDS SUMMARY | 2025-08-09 03:43 | XMS_ITS | Encounter Summary ---
Author Organization [employer] Address [address] [facility] [address] [place] [address] Care Team Providers Care Vein Access Technician Name Role Phone Simona Ribeiro MD Primary Care Provide r Iraida Alanis RN Unavailable [phone] Anne Trinh Unavailable Encounter Details Date Type Department Care Team (Latest Contact Info) Description 10/04/2019 Abstract [facility] CONVERSION[facility] Dental, Provider, DDS Social History Tobacco [...] Description 11/22/2025 3:30 PM EST Office Visit [facility] [address] [place] [address] Ren, Jessika, OD [address] [place] [address] 12/25/2025 8:00 AM EDT Office Visit [facility]ULT DENT[facility] [address] [place] [address] Leandro, Halina [address] [place] [address] documented as of this encounter Visit Diagnoses Not on filedocumented in this encounter Care Teams Vein Access Technician Relationship Specialty Start Date End Date Simona Ribeiro MD [address] [place], [place] [phone] PCP - General Family Medicine 07/21/19 Iraida Alanis RN [address] [place], [place] [phone] Registered Nurse Family Medicine 08/07/25 Anne Trinh 08/07/25 [email or web address] 02/22/24 documented as of this encounter
--- OUTSIDE RECORDS SUMMARY | 2025-08-09 03:43 | XMS_ITS ---
Author Organization [employer] Address [address] [facility] 7t [place] [address] Care Team Providers Care Physical Therapy Supervisor Name Role Phone Simona Ribeiro MD Primary Care Provide r Iraida Alanis RN Unavailable [phone] Anne Trinh Unavailable CHW Complex Status:Outreach In Progress (Enrolling) Start date:08/07/2025 Enrollment reason:Referred by provider Overview Home Health Utilization Referral. Please outreach to patient. Case Team Name Relationship Phone Anne Trinh(Responsible Staff) Continued Care and Services Coordination
--- OUTSIDE RECORDS SUMMARY | 2025-08-09 03:43 | XMS_ITS | Encounter Summary ---
Author Organization [employer] Address [address] [facility] [address] [place] [address] Care Team Providers Care Manager Meeting Name Role Phone Simona Ribeiro MD Primary Care Provide r Iraida Alanis RN Unavailable [phone] Anne Trinh Unavailable Reason for Visit * Reason Comments Care Coordination C3 DIAN bertrand chart review Encounter Details Date Type Department Care Team (Latest Contact Info) Description 08/07/2025 Patient Outreach [facility] [address] [place] [address] Simona Ribeiro MD [address] [place] [address] Care Coordination (C3 DIAN Trinh chart review) Social History Tobacco Use Types Packs/Day Years [...] as of this encounter Progress Notes * Anne Trinh - 08/07/2025 8:45 AM EST LUCILA Alanis RN, performed chart [...] chronic allergic conjunctivitis 11/01/2023 History of dental temple 10/06/2023 Missing teeth, acquired 09/14/2023 Acute bacterial [...] deficiency 07/12/2018 Sleep apnea 03/18/2017 Specialists include [facility], [facility], [facility]. No recent ED visits within the last 12 months. Last appointment in PCP office on 02/05/25. No upcoming appointments with PCP. VOLODYMYR Trinh reviewed chart review completed by LUCILA Alanis RN documented in this encounter Plan of Treatment Upcoming Encounters Date Type Department Care Team (Late st Contact Info) Description 11/22/2025 3:30 PM EST Office Visit [facility] [address] [place] [address] RenJessika ahumada, OD [address] [place] [address] 12/25/2025 8:00 AM EDT Office Visit [facility] ADULT DENTAL [address] [place] [address] Leandro, Halina [address] [place] [address] documented as of this encounter Visit Diagnoses Not on filedocumented in this encounter Additional Health Concerns Assessment Noted Time PHQ-9 Depression Total Score: 22 025 1:30 PM EST documented as of this encounter Care Teams Manager Meeting Relationship Specialty Start Date End Date Simona Ribeiro MD [address] [place] [address] PCP - General Family Medicine 07/21/19 Iraida Alanis, ZARA [address] [place] [address] Registered Nurse Family Medicine 08/07/25 Anne Trinh 08/07/25 [employer] 02/22/24 documented as of this encounter
--- OUTSIDE RECORDS SUMMARY | 2025-08-09 03:43 | XMS_ITS | Encounter Summary ---
Author Organization [employer] Address [address] [facility] [address] [place] [address] Care Team Providers Care Finishing Manager Name Role Phone Simona Ribeiro MD Primary Care Provide r Iraida Alanis RN Unavailable [phone] Anne Trinh Unavailable Encounter Details Date Type Department Care Team (Late st Contact Info) Description 08/07/2025 Patient Outreach [facility] [address] [place], [place] [phone] Simona Ribeiro MD [address] [place] [address] Social History Tobacco Use Types Packs/Day Years [...] the past 12 months, has t he [email or web address], gas, oil or water company threatened to [...] Description 11/22/2025 3:30 PM EST Office Visit [facility] [address] [place] [address] Ren, Jessika, OD [address] [place] [address] 12/25/2025 8:00 AM EDT Office Visit [facility] ADULT DENT[facility] [address] [place] [address] Leandro, Halina [address] [place] [address] documented as of this encounter Visit Diagnoses Not on filedocumented in this encounter Additional Health Concerns Assessment Noted Time PHQ-9 Depression Total Score: 22 025 1:30 PM EST documented as of this encounter Care Teams Finishing Manager Relationship Specialty Start Date End Date Simona Ribeiro MD [address] [place] [address] PCP - General Family Medicine 07/21/19 Iraida Alanis RN [address] [place] [address] Registered Nurse Family Medicine 08/07/25 Anne Trinh 08/07/25 [employer] 02/22/24 documented as of this encounter
--- OUTSIDE RECORDS SUMMARY | 2025-08-09 03:43 | XMS_ITS | Encounter Summary ---
Author Organization [employer] Address [address] [facility] [address] [place] [address] Care Team Providers Care Grants Officer Name Role Phone Simona Ribeiro MD Primary Care Provide r Iraida Alanis RN Unavailable [phone] Anne Trinh Unavailable Reason for Visit * Reason Comments Care Coordination [facility] telephone call outreach Encounter Details Date Type Department Care Team (Latest Contact Info) Description 08/07/2025 Patient Outreach [facility] [address] [place] [address] Simona Ribeiro MD [address] [place] [address] Care Coordination (C3 DIAN Trinh telephone call outreach) Social History Tobacco Use Types Packs/Day Years [...] Answer Date Recorded Patient Health Questionnaire-9 Score 11/02/2024 Patient Health Questionnaire-9 Score 11/02/2024 Last [...] Progress Notes * Anne Trinh - 08/07/2025 10:59 AM EST CHW Anne Trinh, placed outbound call to patient introducing herself from [facility] CM Department, in regards to offering services. Patient's name and was confirmed. Patient agrees toparticipate in program. Appt. for initial assessment scheduled for 08/14/25 @ 10:00 AM. CHW reinforced direct contact information or for any additional questions or concerns and extended clinic hours on Mondays and Wednesdays, and Walk-In Urgent Care Located in [facility]. Patient provided with after-hours line for [facility], , which offer night time triage service and option to transfer to projection printer provider if needed. Patient verbalizes understanding, and able to repeat back to database report writer. documented in this encounter Plan of Treatment Upcoming Encounters Date Type Department Care Team (Late st Contact Info) Description 11/22/2025 3:30 PM EST Office Visit [facility] OPT[facility] [address] [place] [address] RenJessika ahumada, OD [address] [place] [address] 12/25/2025 8:00 AM EDT Office Visit [facility] ADULT DENTAL [address] [place] [address] Leandro, Halina [address] [place] [address] documented as of this encounter Visit Diagnoses Not on filedocumented in this encounter Additional Health Concerns Assessment Noted Time PHQ-9 Depression Total Score: 22 025 1:30 PM EST documented as of this encounter Care Teams Grants Officer Relationship Specialty Start Date End Date Simona Ribeiro MD [address] [place] [address] PCP - General Family Medicine 07/21/19 Iraida Alanis, ZARA [address] [place] [address] Registered Nurse Family Medicine 08/07/25 Anne Trinh 08/07/25 [employer] 02/22/24 documented as of this encounter
--- OUTSIDE RECORDS SUMMARY | 2025-08-09 03:43 | XMS_ITS | Clinical Summary ---
Author Organization [employer] Address [address] [facility] 7t [place] [address] Care Team Providers Care School Cook Name Role Phone Simona Ribeiro MD Primary Care Provide r Iraida Alanis RN Unavailable Anne Trinh Unavailable Allergies Active Allergy Reactions Criticality Noted Date Comments Aspirin Hives,Swelling 07/12/2018 Only to ASA, other NSAIDs is ok. Allergic reaction occurred when pt was 12 years old and occurred in [place]. Penicillin G 12/06/2023 Penicillins Anaphylaxis,Hives High 07/12/2018 [...] g 023 Active Blood Glucose Monitoring Suppl ([employer]Tor[employer] Mobile Lite) w/Device kit 1 each in the [...] 024 Active ergocalciferol (Vitamin D-2) 1.25 MG (06750 UT) capsuleIndication s:Vitamin D deficiency Take 1 capsule (1.25 mg) by mouth 1 (one) time per week. 12 capsule 024 Active cyclobenzaprine (Flexeril) 10 MG tabletIndications :Acute pain of left shoulder Take 1 tablet (10 mg) by mouth 3 times daily for 10 days. 30 tablet Active Additional Information Patient not taking.Reported on 06/25/2025 ibuprofen 800 MG tabletIndications :Acute pain of left shoulder Take 1 tablet (800 mg) by mouth every 8 (eight) hours if needed for mild pain. 1-2 tabs po tid prn pain with meals 20 tablet Active minoxidil (Loniten) 2.5 MG tablet Take [...] into vagina at bedtime for 7 nights (WELSH) 45 g 025 Active lidocaine (Lidoderm) 5 [...] each eye as needed). 10 mL 1 Active triamcinolone (Kenalog) 0.1 % creamIndications: Allergic [...] MORNING AND EVENING MEALS 180 tablet 025 2024 Discontinued Active Problems Problem Noted [...] Encounters Date Type Department Care Team Description 08/07/2025 Patient Outreach [facility] [address] [place] [address] Simona Ribeiro MD Care Coordination (C3 -[facility] Anne Trinh telephone call outreach) 08/07/2025 Patient Outreach [address] [address] Simona Ribeiro MD Care Coordination (C3 -[facility] Anne Trinh chart review) 08/07/2025 Patient Outreach [address] [address] Simona Ribeiro MD Care Management (C3 -CHART REVIEW ) 08/07/2025 Patient Outreach [address] [address] Simona Ribeiro MD 07/26/2025 Refill [facility] [address] [place] [phone] Simona Ribeiro MD Prediabetes 07/24/2025 Orders Only GENERIC EXTERNAL DATA DEPARTMENT Provider, Generic External Data 07/20/2025 Orders Only GENERIC EXTERNAL DATA DEPARTMENT Provider, Generic External Data 07/17/[address] [address] Simona Ribeiro MD Care Coordination (Home Health Care Utilization) 07/16/[address] [address] Simona Ribeiro MD fyi 07/16/[address] [address] Simona Ribeiro MD Care Coordination (Home Care Utilization ) 07/11/2025 Telephone [facility] [address] [place] [phone] Simona Ribeiro MD 07/02/2025 Refill [facility] [address] [place] [address] Simona Ribeiro MD Prediabetes; Allergic conjunctivitis of both eyes; Allergic dermatitis 06/28/2025 Refill [facility] [address] [place] [address] Simona Ribeiro MD Fibromyalgia 06/25/2025 8:45 AM EDT Office Visit [facility] [address] [facility] [place] [address] Halina Reeves Dental plaque (Primary Dx); Missing teeth, acquired; Normal oral exam 06/18/2025 Travel from Last 3 Months Immunizations Immunization Administration [...] Description 11/22/2025 3:30 PM EST Office Visit [facility] [address] [place] [address] Ren, Jessika, OD [address] [place] [address] 12/25/2025 8:00 AM EDT Office Visit [facility] [address] [place] [address] Leandro, Halina [address] [place] [address] Health Maintenance Due Date Last Done Comments [...] 025, 02/09/2024, 01/31/2024, Additional history exists Dental Oral Exam 12/25/2025 06/25/2025, , 10/04/2019 Dental Prophylaxis 12/25/2025 06/25/2025, 1 11/06/2023, 09/14/2023, Additional history exists Disability Screening 02/05/2026 02/05/2025 Mammogram 02/16/2026 02/16/2025, 08/20, 01/17/2024, Additional history exists Diabetes: Urine Protein Screening 02/28/2026 02/28/2025, 02/28/2025 Lipid Panel 02/28/2026 02/28/2025, 01/18, 01/05/2023, Additional history exists Tobacco Screening 06/25/2026 06/25/2025 Dental X-Ray: Bitewings 06/26/2026 06/25/20 25, 09/05/2024, 09/14/2023, Additional history exists SDOH Screening 08/07/2026 08/07/2025 Cervical Cancer Screening 08/18/2026 HPV/Cotest 08/18/2026 08/18/2021 Pap Smear 08/18/2026 08/18/2021 Dental X-Ray: Full Mouth 09/15/2026 023, 03/16/2023, 10/04/2019 Eye Exam 11/20/2026 11/20/2024, 03/0 11/2024, 11/20/2024, [...] complication, without long-term current use of insulin ([facility]/HCC) BI MAMMOGRAM SCREENING TOMOSYNTHESIS BILATERAL Routine 02/16/2025 [...] 1:58 PM EST 07/25/2025 8:00 AM EST [facility]S - 07/27/2025 10:41 AM EST ----- ------- Name: Regina Willson Age/Sex: 45/F : 1980 Unit#: [id number] Attend Dr: El Fisher MD Re07/24/25 [place] [facility] [facility] Disch: ----- ------- SPEC : [id number] RECD: 07/25/25 STATUS: DINORA PERRY NUM: [id number] REAGAN: 07/24/25-[address]: El Fisher MD ENTERED: 07/25/25 SP [...] tissue. No cysts or nodules are identified. Restaurant Team Member sections are submitted for microscopic examination in cassettes A1 through A3, 1 piece each. ([facility]) IHC S/NG Disclaimer NOTE: Unless otherwise stated, all tissue is formalin-fixed and paraffin-embedded. Some or all of the immunohistochemical tests reported herein may have been developed and their performance characteristics determined by [facility]. They have not been cleared or approved by the U.S. Food and Drug Administration (FDA). However, the FDA has determined that such clearance or approval is not necessary. This laboratory is certified under the Clinical Laboratory Improvement Amendments of 1988 (CLIA) as qualified to perform high complexity clinical laboratory testing. Copies To: Simona Ribeiro MD [address] [address] CONTINUED ON NEXT PAGE ----- ------- Name: Neo GradyRegina Age/Sex: 45/F : 1980 Unit#: [id number] Attend Dr: El Fisher MD Re07/24/25 Status: [facility] Location: [facility] Disch: ----- ------- SPEC : [id number] RECD: 07/25/25 STATUS: DINORA PERRY NUM: [id number] REAGAN: 07/24/[address]: El Fisher MD ENTERED: 07/25/25 SP TYPE: Surgical OTHR DR: Simona Ribeiro MD ORDERED: Gross Micro L3 Copies To: (Continued) El Fisher MD [facility] Weight Management Program [address] [place] [phone] ----- ------- Signed (signature on file) Nora Mohan 07/27/25 1041 ----- ------- END OF REPORT us Generic External Data Provider LAB CYTOLOGY BAKARIE DERREK Final Result [facility] [address] [place] [address] [phone] * Glucose, Whole Blood (07/24/2025 10:42 AM EST) Glucose, Whole Blood 70 60 - 115 mg/dL [facility] Comment:METER #: [id number] 07/24/2025 10:4 2 AM EST 07/24/2025 10:46 AM EST us Generic External Data Provider LAB BLOOD ORDERAB LES Final Result [facility] [address] [place] [address] [phone] * (ABNORMAL) CBC auto differential (07/20/2025 8:00 AM EDT) Pathologist [facility] White Blood Count 5.3 4.8 - 10.8 X10*3/uL [facility] Red Blood Count 4.95 4.20 - 5.50 X10*6/uL [facility] Hemoglobin 14.3 12.0 - 16.0 g/dl [facility] Hematocrit 44.7 37.0 - 47.0 % [facility] Mean Corpuscular Volume 90.3 80.0 - 98.0 fL [facility] Mean Corpuscular Hemoglobin 28.9 27.0 - 33.0 pg [facility] Mean Corpuscular HGB Conc 32.0 31.0 - 35.0 g/dl [facility] Red Cell Distribution Width 13.4 11.0 - 16.0 % [facility] Platelet Count 316 160 - 400 X10*3/uL [facility] Mean Platelet Volume 10.0 9.4 - 12.3 fL [facility] Neutrophils Percent Auto 41.1(L) 45 - 73 % [facility] Imm Gran Pct Auto 0.2 0.0 - 0.4 % [facility] Lymphocytes Percent Auto 49.3(H) 20 - 40 % [facility] Monocytes Percent Auto 6.9 2 - 11 % [facility] Eosinophils Percent Auto 1.5 0 - 4 % [facility] Basophils Percent Auto 1.0 0 - 2 % [facility] NRBC Pct Auto 0.0 0.0 - 0.2 /100WBC [facility] Neutrophils Absolute Auto 2.2 2.0 - 8.3 x10*3/uL [facility] Imm Gran Abs Auto 0.01 0.00 - 0.03 X10*3/uL [facility] Lymphocytes Absolute Auto 2.6 1.2 - 4.9 X10*3/uL [facility] Monocytes Absolute Auto 0.4 0.1 - 1.2 X10*3/uL [facility] Eosinophils Absolute Auto 0.1 0.0 - 0.4 X10*3/uL [facility] Basophils Absolute Auto 0.1 0.0 - 0.2 X10*3/uL [facility] NRBC Abs Auto 0.000 0.0 - 0.012 X10*3/uL [facility] 07/20/2025 8:00 AM EDT 07/20/2025 8:00 AM EDT us Generic External Data Provider LAB BLOOD ORDERAB LES Final Result Performing Organization Address City/[facility]/ZIP Co de Phone Number [facility] [address] [place] [phone] * (ABNORMAL) Partial Thromboplastin Time, Activated (APTT) (07/20/2025 8:00 AM EDT) [facility] Partial Thromboplastin Time 25.2(L) 26.7 - 34.1 SEC [facility] 07/20/2025 8:00 AM EDT 07/20/2025 8:00 AM EDT us Generic External Data Provider LAB BLOOD ORDERAB LES Final Result Performing Organization Address [facility] [place]/[facility]/ZIP Co de Phone Number [facility] [address] [place] [phone] * (ABNORMAL) Prothrombin Time-INR (07/20/2025 8:00 AM EDT) Prothrombin Time 10.7(L) 10.9 - 12.4 SEC [facility] INTERNATIONAL NORM RATIO 0.9 0.9 - 1.1 [facility] Comment:INTERNATIONAL NORMAL IZED RATIO (INR) REFERENCE [...] Provider LAB BLOOD ORDERAB LES Final Result [facility] [address] [place] [phone] * Comprehensive Metabolic Panel (07/20/2025 8:00 AM EDT) Sodium 143 135 - 145 mmol/L [facility] Potassium 3.8 3.3 - 5.1 mmol/L [facility] Chloride 107 96 - 108 mmol/L [facility] Carbon Dioxide 28 22 - 29 mmol/L [facility] Anion Gap 12 12 - 20 [facility] Urea Nitrogen (BUN) 12 9 - 16 mg/dL [facility] Creatinine, Serum 0.82 0.5 - 1.4 mg/dL [facility] Creatinine Clr Calc Pharmacy 75.8 [facility] Comment:Provided height and weight: 157.48 cm,63.503 kg.eGFR (calculated from the MDRD study equation) and eCrCl(calculated from the Cockcroft-Gault equation) are based ondifferent parameters and may not yield comparable results.If eCrCl result is absurd, please check patient'sheight/weight. Estimated Glomerular Filt Rate >60 [facility] Comment:Chronic Kidney Disea se: Estimated GFR < 60 mL/min/1.29l4Giwcot Kidney Disease: Estimated GFR < 15 mL/min/1.73m2 Glucose 85 60 - 115 mg/dL [facility] Calcium 10.1 8.4 - 10.2 mg/dL [facility] Bilirubin, Total 0.7 0.0 - 1.0 mg/dL [facility] Aspartate Amino Transferase 23 5 - 31 U/L [facility] Alanine Aminotransferase 22 0 - 31 U/L [facility] Total Protein 7.5 6.5 - 8.0 g/dL [facility] Albumin Level 4.8 3.5 - 5.0 g/dL [facility] Alkaline Phosphatase 67 39 - 117 U/L [facility] 07/20/2025 8:00 AM EDT 07/20/2025 8:00 AM EDT us Generic External Data Provider LAB BLOOD ORDERAB LES Final Result Performing Organization Address [facility] [place]/[facility] Co de Phone Number [facility] [address] [place] [address] [phone] * Type and screen (07/20/2025 7:51 AM EDT) Blood Type AP [facility] Antibody Screen NEGATIVE [facility] 07/20/2025 7:51 AM EDT 07/20/2025 8:03 AM EDT Narrative [facility] - 07/20/2025 9:04 AM EDT Spec expiration changed by ALEJANDRO on 07/20/25Reason: PATNURSING:Call Blood Bank (ext. [phone]) to band patient on admission.Type and Screen in effect until 2300 on 07/24/2025Witnessed by YUMIKO us Generic External Data Provider LAB BLOOD BANK TE ST ORDERABLES Final Result Performing Organization Address [facility] [place]/[facility]/ZIP Co de Phone Number [facility] [address] [place] [address] [phone] * Hepatitis C Antibody with Reflex to HCV, RNA, Quantitative, Real-Time PCR (02/28/2025 8:27 AM EDT) Hepatitis C Antibody Nonreactive Nonreactive [facility] Comment:Antibodies to HCV no t detected; does not exclude early acuteHCV infection. Blood Venous blood specimen / Unknown 02/28/2025 8:27 AM EDT 02/28/2025 8:27 AM EDT us Simona Gaston MD LAB BLOOD ORDERABLES Final Result Performing Organization Address [facility] [place]/[facility]/ZIP Co de Phone Number [facility] [address] [place] [phone] * HIV-1/2 Antigen and Antibodies, Fourth Generation, with Reflexes (02/28/2025 8:27 AM EDT) HIV AB/AG Nonreactive Nonreactive [facility] Comment:HIV-1 p24 Ag and/or HIV-1/HIV-2 Ab not detected.A test result that is nonreactive does not exclude thepossibility of exposure to or infection with HIV-1 and/orHIV-2. Nonreactive results in this assay for individualswith prior exposure to HIV-1 and/or HIV-2 may be due toantigen and antibody levels that are below the limit ofdetection of this assay.The IDbyME HIV Ag/Ab Combo assay result andsupplemental assay results should be interpreted inconjunction with the patient's clinical presentation,history and other laboratory results. If the results areinconsistent with clinical evidence, additional testing issuggested to confirm the result. Blood Venous blood specimen / Unknown 02/28/2025 8:27 AM EDT 02/28/2025 8:27 AM EDT us Simona Gaston MD LAB BLOOD ORDERABLES Final Result Performing Organization Address [facility] [place]/[facility]/ZIP Co de Phone Number [facility] [address] [place] [phone] * Hemoglobin A1c (02/28/2025 8:27 AM [...] patient sample. Estimated Average Glucose 111 mg/dL [facility] Comment:eAG = Estimated ave rage glucose which is %A1C expressed asaverage glucose, using the formula of the L1U-YuzvtexWpbbdyi Glucose study (ADAG), Diabetes Care, Vol.31,#8,Apr. 2007 02/28/2025 8:27 AM EDT 02/28/2025 8:27 AM EDT us Generic External Data Provider LAB BLOOD ORDERAB LES Final Result [facility] [address] [place] [phone] * (ABNORMAL) Lipid Panel, Standard (02/28/2025 8:27 AM EDT) Triglycerides 93 <150 mg/dL [facility] Comment:Desirable Triglyceri de: less than 150 mg/dLBorderline High Triglyceride 150-199 mg/dLHigh Triglyceride: 200-499 mg/dLVery High Triglyceride: greater than or equal to 5OO mg/dL Cholesterol 221(H) <200 mg/dL [facility] Comment:Desirable Cholestero l: less than 200 mg/dLBorderline High Cholesterol: 200-239 mg/dLHigh Cholesterol: greater than 239 mg/dL LDL Cholesterol Calculated 153(H) <100 mg/dL [facility] Comment:Desirable LDL: less than 100 mg/dLNear Optimal/Above Optimal LDL: 110- 129 mg/dLBorderline High LDL: 130-159 mg/dLHigh LDL: 160-189 mg/dLVery High LDL: greater than or equal to 190 mg/dL HDL Cholesterol 50 >40 mg/dL [facility] Comment:Desirable HDL: great er than 40 mg/dL Note: This HDL assay may give artificially low results in patients with liver disease. Blood Venous blood specimen / Unknown 02/28/2025 8:27 AM EDT 02/28/2025 8:27 AM EDT us Simona Gaston MD LAB BLOOD ORDERABLES Final Result Performing Organization Address [facility] [place]/[facility] Co de Phone Number [facility] [address] [place] [phone] * Albumin, Random Urine W/Creatinine (02/28/2025 8:20 AM EDT) Creatinine, Urine 520.55 mg/dL [facility] Microalbumin Urine 49.0 mg/L [facility] Microalbum Creatinine Ratio Ur 9.4 <30 ug/mg cr [facility] Comment:Albumin/Creatinine R atio Reference Ranges: Normal: < 30 ug/mg creatinine Microalbuminuria: 30 - 300 ug/mg creatinineClinical Albuminuria: > 300 ug/mg creatinine Urine (Urine, Random) 02/28/2025 8:20 AM EDT 02/28/2025 9:10 AM EDT us Simona Gaston MD LAB URINE ORDERABLES Final Result Performing Organization Address [facility] [place]/[facility] Co de Phone Number [facility] [address] [place] [phone] * BI Mammogram Screening Tomosynthesis Bilateral (02/16/2025 7:52 AM EDT) Anatomical Region Laterality Modality Breast Bilateral Mammography 02/16/2025 7:52 AM EDT Narrative 02/23/2025 5:07 PM EDT [facility] [address] [place] [address] Mammography Report Signed Patient: Neo HardinRyder muellerRegina MR#: [id number] : 1980 Acct:[id number] Age/Sex: 44 / F ADM Date: 02/16/25 Loc: HO.MAMMO Attending Dr: Luis Carlos Adrian MD Ordering Physician: Luis Carlos Adrian MD Results: 2Beni gn Findings Date of Service: 02/16/25 Follow Up: 1 Year From Orig inal Mammogram Procedure(s): MM tomosynthesis screening BI Accession Number(s): [id number] cc: Simona Ribeiro MD; Luis Carlos Adrian [...] 02/23/25 1704 DD/ 0752 TD/TT: 02/16/25 0805 Bass Guitar Teacher: Procedure Note Donkurtisinterpreter, Image - 02/23/2025 [facility] [address] [place], [place] [address] Mammography Report Signed Patient: Regina WillsonMR#: [id number] : 1980Acct:[id number] Age/Sex: 44 / FADM Date: 02/16/25 Loc: HO.MAMMO Attending Dr: Luis Carlos Adrian MD Ordering Physician: Luis Carlos Adrian MDResults: 2Beni gn Findings Date of Service: 02/16/25Follow Up: 1 Year From Orig ina Mammogram Procedure(s): MM tomosynthesis screening BI Accession Number(s): [id number] cc: Simona Ribeiro MD; Luis Carlos Adrian [...] 02/23/25 1704 DD/ 0752 TD/TT: 02/16/25 0805 Bass Guitar Teacher: [facility] External Provider IMG BI PROCEDURES Final Result * HPV E6/E7 RFLX DANNY 16 18/45 (08/18/2021 10:17 AM EST) HPV 16 RNA [facility] HPV 18/45 RNA [facility] HPV E6 E7 ADD [facility] HPV mRNA E6/E7 rflx Not Detected Not Detected [facility] Comment: Methodology: Stock Cutter-Mediated Amplification This assay detects E6/E7 viral messenger RNA (mRNA) from 14 high-risk HPV types (16,18,31,33,35,39,45,51,52,56,58,59,66,68). The analytical performance characteristics of this assay have been determined by [employer]. The modifications have not been cleared or approved by the FDA. This assay has been validated pursuant to the CLIA regulations and is used for clinical purposes. For additional information, please refer to http://education.Xtone/faq/LCP424p4 (This link if provided for information/ educational purposes only.) THIS TEST WAS PERFORMED AT: [facility] [address] [place] [address] FLOOR,[place] [address] JASWINDER PAUL MD 08/18/2021 10:1 7 AM EST Ramesh Maki MD HISTORICAL/NON ORDERABLE LABS Fi nal Result [facility] [address] * Hm Pap Smear (08/18/2021 12:00 AM EST) Historical Provider HEALTH MAINTENANCE Final Result from Last 3 Months or Most Recently Relevant to Health Maintenance Insurance [facility] C[place] AD[place] Care Teams School Cook Relationship Specialty Start Date End Date Simona Ribeiro MD [address] [place] [address] PCP - General Family Medicine 07/21/19 Iraida Alanis RN [address] [place] [address] Registered Nurse Family Medicine 08/07/25 Anne Trinh 08/07/25 We 02/22/24
--- OUTSIDE RECORDS SUMMARY | 2025-08-09 03:43 | XMS_ITS | Encounter Summary ---
Author Organization [employer] Address [address] [facility] 7t [place] [address] Care Team Providers Care Crozer Name Role Phone Simona Ribeiro MD Primary Care Provide r Iraida Alanis RN Unavailable [phone] Anne Trinh Unavailable Reason for Visit * Reason Comments Med Refill Encounter Details Date Type Department Care Team (Late st Contact Info) Description 12/22/2022 Refill [facility] [address] [place], [place] [phone] Rishabh Mcnally MD [address] [place], [place] [phone] Vaginal candidiasis Social History Tobacco Use Types [...] Description 11/22/2025 3:30 PM EST Office Visit [facility] OPTOM[facility]RY [address] [place] [address] Jessika Mcclure, OD [address] [place] [address] 12/25/2025 8:00 AM EDT Office Visit [facility] ADULT DENTAL [address] [place] [address] Leandro, Halina [address] [place] [address] documented as of this encounter Visit Diagnoses Diagnosis Vaginal candidiasis Candidiasis of vulva and vagina documented in this encounter Care Teams Crozer Relationship Specialty Start Date End Date Simona Ribeiro MD [address] [place] [phone] PCP - General Family Medicine 07/21/19 Iraida Alanis RN [address] [place] [address] Registered Nurse Family Medicine 08/07/25 Anne Trinh 08/07/25 [facility] 02/22/24 documented as of this encounter
--- OUTSIDE RECORDS SUMMARY | 2025-08-09 03:43 | XMS_ITS ---
Author Organization [facility] Address [address] [facility] 7t [place] [address] Care Team Providers Care Stage Settings Painter Name Role Phone Simona Ribeiro MD Primary Care Provide r Iraida Alanis RN Unavailable [phone] Anne Trinh Unavailable CM Complex Status:Outreach In Progress (Enrolling) Start date:08/07/2025 Enrollment reason:Referred by provider Overview Home Health Utilization- Please coordinate with Shakira for connection with DIRECTOR OF REHABILITATION AND WELLNESS services for reduction of INCOME TAX ANALYST and jail. Case Team Name Relationship Phone Iraida Alanis RN(Responsible Staff) Registered Nurse Continued Care and Services Coordination
--- OUTSIDE RECORDS SUMMARY | 2025-08-09 03:43 | XMS_ITS | Encounter Summary ---
Author Organization [employer] Address [address] [facility] 7t [place] [address] Care Team Providers Care Customer Account Coordinator Name Role Phone Simona Ribeiro MD Primary Care Provide r Iraida Alanis RN Unavailable [phone] Anne Trinh Unavailable Reason for Visit * Reason Onset Date Comments Home Care Services 12/07/2022 I called the pt regarding a Physician Summary Form, from [email or web address]. She stated that she does not [...] (Late st Contact Info) Description 12/07/2022 Telephone [facility] MEDICINE [address] [place] [address] Simona Ribeiro MD [address] [place] [address] Home Care Services (I called the pt regarding a Physician Summary Form, from [email or web address]. She stated that she does not [...] Description 11/22/2025 3:30 PM EST Office Visit [facility] OPTOMETRY [address] [place] [address] Ren, Jessika, OD [address] [place] [address] 12/25/2025 8:00 AM EDT Office Visit [facility] ADULT DENTAL [address] [place] [address] Leandro, Halina [address] [place] [address] documented as of this encounter Visit Diagnoses Not on filedocumented in this encounter Care Teams Customer Account Coordinator Relationship Specialty Start Date End Date Simona Ribeiro MD [address] [place] [id number] PCP - General Family Medicine 07/21/19 Iraida Alanis RN [address] [place] [address] Registered Nurse Family Medicine 08/07/25 Anne Trinh 08/07/25 [employer] 02/22/24 documented as of this encounter
== END 2025-08-08 16:30 | disposition home or self-care (01) ==
LOC: HO.HBS 15:10
PROVIDERS: PCP Internal Medicine; Visit Provider Physician Assistant Surgical
DX: E66.3 Overweight (principal); Z68.25 Body mass index [BMI] 25.0-25.9, adult; Z98.890 Other specified postprocedural states
CPT/HCPCS: 99024

== ENCOUNTER → 2025-08-08 15:09 | Outpatient (BNVA) | payer MEDICAID, SELFPAY | PROVIDERS: PCP Internal Medicine; Visit Provider Physician Assistant Surgical | DX: Z48.1 Encounter for planned postprocedural wound closure (principal); E66.3 Overweight; Z87.39 Personal history of other diseases of the musculoskeletal system and connective tissue | CPT/HCPCS: 99212 ==

== ENCOUNTER 2025-08-15 15:10 | Outpatient (AMB) | payer MEDICAID, SELFPAY ==
--- NOTE | 2025-08-15 15:22 | A.OFFVIS_ITS ---
VS Expanded 08/15/25 15:31 BP 104/63 Blood Pressure Location Rt brachial Blood Pressure Position Sitting Pulse 89 Pulse Source Pulse Oximeter Temp 98.4 F Temperature Source Temporal Artery Scan Pulse Oximetry 100 Oxygen Delivery Method Room Air Intake Visit Reasons: OV PO Panniculectomy 07/24/25 Allergies Penicillins Allergy (Severe, Verified 07/18/25 09:48) Anaphylaxis seafood Allergy (Severe, Verified 07/18/25 09:48) Anaphylaxis, rash aspirin Allergy (Intermediate, Verified 07/18/25 09:48) Rash Medication List - Last Reconciled 08/15/25 by JO ANN Syed albuterol sulfate 90 mcg/actuation 2 puffs inhalation Q4-6H PRN amitriptyline 10 mg PO BEDTIME 30 days atorvastatin 20 mg PO DAILY betamethasone dipropionate 0.05% 1 appl topical DAILY PRN bupropion HCl 1 tab PO DAILY buspirone 5 mg PO BID lhbfvhnbge-qziebaodlrzou-ejcb 50-325-40 mg 2 tabs PO DAILY PRN 30 days cholecalciferol (vitamin D3) 25 mcg PO DAILY ciprofloxacin HCl (Cipro) 500 mg PO Q12H citalopram 20 mg PO DAILY cyclobenzaprine 10 mg PO Q8H PRN divalproex ER (Depakote ER) 250 mg PO BEDTIME 90 days docusate sodium (Colace) 100 mg PO DAILY famotidine 20 mg PO BEDTIME gabapentin 300 mg PO BEDTIME hydroxyzine HCl 50 mg PO BID nystatin 1 appl topical QID ondansetron 4 mg PO DAILY PRN 30 days ondansetron 4 mg PO Q12H oxybutynin chloride 5 mg PO DAILY sennosides (senna) 8.6 mg PO DAILY thiamine HCl (vitamin B1) 100 mg PO DAILY tirzepatide (Mounjaro) 2.5 mg (0.5 mL) subcut QWEEK tizanidine 4 mg PO BID PRN 30 days verapamil ER 120 mg PO DAILY 30 days HPI Comments Details: Pt is 3w s/p panniculectomy 07/24/2025. Drain output around 15-30cc per day. No fevers at home. Following meal plan. Wearing abdominal binder. Taking abx as directed. [facility] Medical History Narcolepsy Seasonal allergies PONV (postoperative nausea and vomiting) JANNY (obstructive sleep apnea) Periodic limb movement disorder Hypersomnia Anxiety and depression COVID-19 vaccine series completed BMI 34.0-34.9,adult BMI 39.0-39.9,adult Insomnia Seizures DJD (degenerative joint disease) Stress incontinence GERD (gastroesophageal reflux disease) Hyperlipidemia Sleep apnea with use of continuous positive airway pressure (CPAP) Non-insulin dependent type 2 diabetes mellitus Obesity Well woman exam Ovarian low malignant potential tumor Umbilical hernia Migraine Asthma Morbid obesity Pannus, abdominal Surgical History History of esophagogastroduodenoscopy (EGD) (12/22/24) History of lumpectomy of right breast (~2006) Hx of tonsillectomy (12/22/23) Hx laparoscopic cholecystectomy (07/29/23) S/P laparoscopic sleeve gastrectomy (01/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 Son No problems noted. Daughter No problems noted. Social History Household Members: Family Housing: House Are you a primary out of school hours care worker to a significant other at home: Yes (children) Do you presently have visiting nurse or other home services: No 75 years or older and lives alone: No Alcohol intake: never Comment: counts correct Patient Tobacco Use Status: Never used Tobacco e-Cigarette/Vaping Use: Never Used service: No Female Reproductive History Menstrual Age of Menarche: 11 Physical Exam Vital Signs: Last Vital Signs Temp 98.4 F 08/15/25 15:31 Pulse 89 08/15/25 15:31 BP 104/63 08/15/25 15:31 Pulse Ox 100 08/15/25 15:31 Oxygen Delivery Method Room Air 08/15/25 15:31 Const General: cooperative, comfortable and no acute distress Orientation/consciousness: patient oriented x3 GI Other: soft, nontender, nondistended, panniculectomy incision healing well with serous drain output Neuro General: patient oriented x3 Assessment & Plan Assessment & Plan (1) S/P laparoscopic sleeve gastrectomy: Onset Date: 01/06/22 Comment: 01/06/22 Code(s): Z98.84 - Bariatric surgery status Category: Medical (2) S/P panniculectomy: Code(s): Z98.890 - Other specified postprocedural states Category: Medical (3) Overweight: Code(s): E66.3 - Overweight Category: Medical Plan Continue high protein diet. ABX keflex 500 BID x 2 weeks, extended as needed?(at least until drain comes out plus 1 week).? Drain out after consistently 20 mL or less daily. Likely next week? Abdominal binder at all times except for care x 1 month?MINIMUM. If there are concerns longer.? No driving?until drain out.? No walking outside or exercise for 6 weeks minimum. Walking in the house okay. Assistance getting up for 4 weeks minimum.?No lifting greater than?10 pounds x 2 months and no abdominal exercises x 3 months.
[2025-08-15 15:31] VITALS: BP 104/63; PULSE 89; TEMP 36.9; O2SAT 100
--- OUTSIDE RECORDS SUMMARY | 2025-08-15 17:40 | XMS_ITS ---
Author Organization [employer] Address [address] [facility] [address] [place] [address] Care Team Providers Care Santa'S Helper Name Role Phone Simona Ribeiro MD Primary Care Provide r Iraida Alanis RN Unavailable [phone] Anne Trinh Unavailable [facility] Complex Status:Enrolled (Active) Start date:08/07/2025 Enrollment date:08/13/2025 Enrollment reason:Referred by provider Overview Home Health Utilization Referral. Please outreach to patient. Case Team Name Relationship Phone Anne Trinh(Responsible Staff) Continued Care and Services Coordination
--- OUTSIDE RECORDS SUMMARY | 2025-08-15 17:40 | XMS_ITS | Clinical Summary ---
Author Organization [facility] it Address [address] [place] [address] Care Team Providers Care Back Pad Inspector Name Role Phone Cecilia Zee [facility] Primary Care Provider [phone] Surgical History Surgery Date Site/Laterality Comments OVARIAN CYST REMOVAL PROCEDURE: PA OVARIAN CYSTECTOMY UNI/BI HYSTERECTOMY PROCEDURE: HISTORICAL HYSTERECTOMY BREAST REDUCTION PROCEDURE: PA BREAST REDUCTION OTHER SURGICAL HISTORY 2007 PROCEDURE: PA PUNCTURE ASPIRATION CYST BREAST EACH ADDL CYST; [...] AM EDT Narrative 07/09/2019 4:44 PM EDT [facility] Diagnostic Imaging Department [address] [place] [id number] Patient: ROBERTO ELIZALDE /Age/Sex: 1980 - 39 - F Unit#: [id number] Location/Status: SPDIMAM/PRE CLI Mnemonic/Ordering Site: [facility] Ordering Physician: REI DELACRUZ CNM [facility] Screening Digital - 07/08/1954 EXAM: [facility] Screening Digital EXAM DATE AND TIME: 07/08/2019 9:20 AM HISTORY: Screening. Reduction mammoplasty in 2007. Paternal grandmother had breast carcinoma. COMPARISON: Previous mammograms done in [place] are not available per the patient. TECHNIQUE: CC and MLO views of both breasts were obtained using full field digital mammography. Bilateral digital breast tomosynthesis was performed in the MLO projection. Computer aided detection with the [employer] 7.2-H was employed. TISSUE DENSITY: a. The [...] Routine screening mammogram BILATERAL in 1 year. 48715, 86570 3342F, 7025F Dictating Physician: ALIS POWER MD Electronically Signed by: ALIS POWER MD Dic Date/Time: 07/09/19 1643 Sign date/Time: 07/09/19 1644 Procedure Note Alis Power - 09/08/2022 [facility] Diagnostic Imaging Department [address] [place] [id number] Patient: TONIOROBERTO D.O.B./Age/Sex: 1980 - 39 - F Unit#: [id number] Location/Status: SPDIMAM/PRE CLI Mnemonic/Ordering Site: [facility] Ordering Physician: REI DELACRUZ CNM [facility] Screening Digital - 07/08/19 - 54 EXAM: [facility] Screening Digital EXAM DATE AND TIME: 07/08/2019 9:20 AM HISTORY: Screening. Reduction mammoplasty in 2007. Paternal grandmotherhad breast carcinoma. COMPARISON: Previous mammograms done in [place] are not available perthe patient. TECHNIQUE: CC and MLO views of both breasts were obtained using fullfield digital mammography. Bilateral digital breast tomosynthesis was performedin the MLO projection. 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 TISSUE DENSITY: a. The breasts are [...] Routine screening mammogram BILATERAL in 1 year. 94238, 00534 3342F, 7025F Dictating Physician: ALIS POWER MD Electronically Signed by: ALIS POWER MD Dic Date/Time: 07/09/19 1643 Sign date/Time: 07/09/19 1644 Rei Delacruz CNM IMG BI PROCEDURES Final Resul t * Pap smear (07/06/2019) 07/06/2019 Narrative HISTORICAL TESTING LAB RESULTING AGENCY - 07/10/2019 1:05 PM EDT [id number] THINPREP PAP, IMAGED: NEGATIVE FOR SQUAMOUS INTRAEPITHELIAL [...] Recently Relevant to Health Maintenance Care Teams Back Pad Inspector Relationship Specialty Start Date End Date Cecilia Zee FNP [address] [place] [address] PCP - General Internal Medicine 04/27/19
--- OUTSIDE RECORDS SUMMARY | 2025-08-15 17:40 | XMS_ITS | Encounter Summary ---
Author Organization [employer] Address [address] [facility] 7t [place] [address] Care Team Providers Care Operations Controller Name Role Phone Simona Ribeiro MD Primary Care Provide r Iraida Alanis RN Unavailable [phone] Anne Trinh Unavailable Reason for Visit * Reason Onset Date Comments Home Care Services 12/07/2022 I called the pt regarding a Physician Summary Form, from [employer]. She stated that she does not [...] Contact Info) Description 12/07/2022 Telephone [facility] MEDICINE [address] [place] [address] Simona Ribeiro MD [address] [place] [address] Home Care Services (I called the pt regarding a Physician Summary Form, from [employer]. She stated that she does not [...] Care Team (Late st Contact Info) Description 10/16/2025 9:00 AM EST Office Visit [facility] MEDICINE [address] [place] [address] Simona Ribeiro MD [address] [place] [address] 11/22/2025 3:30 PM EST Office Visit [facility] OPTOMETRY [address] [place] [address] Ren, Jessika, OD [address] [place] [address] 12/25/2025 8:00 AM EDT Office Visit [facility] ADULT DENTAL [address] [place] [address] Leandro, Halina [address] [place] [address] documented as of this encounter Visit Diagnoses Not on filedocumented in this encounter Care Teams Operations Controller Relationship Specialty Start Date End Date Simona Ribeiro MD [address] [place] [address] PCP - General Family Medicine 07/21/19 Iraida Alanis RN [address] [place] [address] Registered Nurse Family Medicine 08/07/25 Anne Trinh 08/07/25 [employer] 02/22/24 08/13/25 Angel Luis [facility] Home Health Services 07/25/25 documented as of this encounter
--- OUTSIDE RECORDS SUMMARY | 2025-08-15 17:40 | XMS_ITS | Encounter Summary ---
Author Organization [employer] Address [address] [facility] 7t [place] [address] Care Team Providers Care Technology Auditor Name Role Phone Simona Ribeiro MD Primary Care Provide r Iraida Alanis RN Unavailable [phone] Anne Trinh Unavailable Reason for Visit * Reason Comments Med Refill Encounter Details Date Type Department Care Team (Late st Contact Info) Description 12/22/2022 Refill [facility] MEDICINE [address] [place], [place] [phone] Rishabh Mcnally MD [address] [place], [place] [phone] Vaginal candidiasis Social History Tobacco Use Types [...] Description 10/16/2025 9:00 AM EST Office Visit [facility] MEDICINE [address] [place] [address] Simona Ribeiro MD [address] [place] [address] 11/22/2025 3:30 PM EST Office Visit [facility] OPTOMETRY [address] [place] [address] Ern, Jessika, OD [address] [place] [address] 12/25/2025 8:00 AM EDT Office Visit [facility] ADULT DENTAL [address] [place] [address] Halina Reeves [address] [place] [address] documented as of this encounter Visit Diagnoses Diagnosis Vaginal candidiasis Candidiasis of vulva and vagina documented in this encounter Care Teams Technology Auditor Relationship Specialty Start Date End Date Simona Ribeiro MD [address] [place] [address] PCP - General Family Medicine 07/21/19 Iraida Alanis RN [address] [place] [address] Registered Nurse Family Medicine 08/07/25 Anne Trinh 08/07/25 [employer] 02/22/24 08/13/25 [facility] 07/25/25 documented as of this encounter
--- OUTSIDE RECORDS SUMMARY | 2025-08-15 17:40 | XMS_ITS ---
Author Organization [employer] Address [address] [facility] 7t [place] [address] Care Team Providers Care Public Records Researcher Name Role Phone Simona Ribeiro MD Primary Care Provide r Iraida Alanis RN Unavailable [phone] Anne Trinh Unavailable CM Complex Status:Enrolled (Active) Start date:08/07/2025 Enrollment date:08/14/2025 Enrollment reason:Referred by provider Overview Home Health Utilization- Please coordinate with Shakira for connection with [employer] services for reduction of TERMITE [employer] and assisted. Case Team Name Relationship Phone Iraida Alanis RN(Responsible Staff) Registered Nurse Continued Care and Services Coordination
--- OUTSIDE RECORDS SUMMARY | 2025-08-15 17:40 | XMS_ITS | Encounter Summary ---
Author Organization [employer] Address [address] [facility] 7t [place] [address] Care Team Providers Care Rn Progressive Care Name Role Phone Simona Ribeiro MD Primary Care Provide r Iraida Alanis RN Unavailable [phone] Anne Trinh Unavailable Encounter Details Date Type Department Care Team (Latest Contact Info) Description 10/04/2019 Abstract [facility] CONVERSIONS Dental, Provider, DDS Social History [...] Description 10/16/2025 9:00 AM EST Office Visit [facility] MEDICINE [address] [place] [address] Simona Ribeiro MD [address] [place] [address] 11/22/2025 3:30 PM EST Office Visit [facility] OPTOMETRY [address] [place] [address] Jessika Mcclure, OD [address] [place] [address] 12/25/2025 8:00 AM EDT Office Visit [facility] ADULT DENTAL [address] [place], [place] [phone] Halina Reeves [address] [place], [place] [phone] documented as of this encounter Visit Diagnoses Not on filedocumented in this encounter Care Teams Rn Progressive Care Relationship Specialty Start Date End Date Simona Ribeiro MD [address] [place], [place] [phone] PCP - General Family Medicine 07/21/19 Iraida Alanis RN [address] [place], [place] [phone] Registered Nurse Family Medicine 08/07/25 Anne Trinh 08/07/25 [employer] 02/22/24 08/13/25 Angel Luis [facility] Home Health Services 07/25/25 documented as of this encounter
--- OUTSIDE RECORDS SUMMARY | 2025-08-15 17:41 | XMS_ITS | Encounter Summary ---
Author Organization [employer] Address [address] [facility] 7t [place] [address] Care Team Providers Care Valet Parker Name Role Phone Simona Ribeiro MD Primary Care Provide r Iraida Alanis RN Unavailable [phone] Anne Trinh Unavailable Encounter Details Date Type Department Care Team (Late Contact Info) Description 06/14/2023 Orders Only [facility] MEDICINE [address] [place] [address] Nemo Patel Social History Tobacco Use Types [...] Department Care Team (Late Contact Info) Description 10/16/2025 9:00 AM EST Office Visit [facility] MEDICINE [address] [place] [address] [phone] Simona Ribeiro MD [address] [place] [phone] 11/22/2025 3:30 PM EST Office Visit [facility] OPTOMETRY [address] [place] [address] Jessika Mcclure, OD [address] [place] [address] 12/25/2025 8:00 AM EDT Office Visit [facility] ADULT DENTAL [address] [place] [address] Leandro, Halina [address] [place] [address] documented as of this encounter Procedures Procedure Name Priority Date/Time Associated Diagnosis Comments PAP/HPV Routine 08/18/2021 12:00 AM EST documented in this encounter Results * Pap Smear (08/18/2021 12:00 AM EST) us Historical Provider HEALTH MAINTENANCE Final Result documented in this encounter Visit Diagnoses Not on filedocumented in this encounter Care Teams Valet Parker Relationship Specialty Start Date End Date Simona Ribeiro MD [address] [place] [address] PCP - General Family Medicine 07/21/19 Iraida Alanis RN [address] [place] [address] Registered Nurse Family Medicine 08/07/25 Anne Trinh 08/07/25 [employer] 02/22/24 08/13/25 [facility] Home Health Services 07/25/25 documented as of this encounter
--- OUTSIDE RECORDS SUMMARY | 2025-08-15 17:41 | XMS_ITS | Encounter Summary ---
Author Organization [employer] Address [address] [place] [address] Care Team Providers Care College Scouting Coordinator Name Role Phone Simona Ribeiro MD Primary Care Provide r Iraida Alanis RN Unavailable [phone] Anne Trinh Unavailable Reason for Visit * Reason Comments Care Management C3 COMPLEX INITIAL ASSESSMENT/ ENROLLMENT Encounter Details Date Type Department Care Team (Late st Contact Info) Description 08/14/2025 Patient Outreach [facility] [address], [place] [phone] Simona Ribeiro MD [address], [place] [phone] Care Management ([facility] COMPLEX INITIAL ASSESSMENT/ ENROLLMENT ) Social History Tobacco Use Types Packs/Day [...] Answer Date Recorded Patient Health Questionnaire-9 Score 20 08/14/2025 Patient Health Questionnaire-9 Score 20 08/14/2025 Last PHQ-9: Questionnaire Data Not on file 1 10/14/2024 Housing Stability Answer Date Recorded What is [...] Answer Date Recorded Patient Health Questionnaire-2 Score 5 08/14/2025 Internet Access Answer Date Recorded Internet Access Q1 Yes 10/20/2024 Internet Access Q2 Not on file 10/20/2024 Comments Unknown Sex and Gender Information Value Date Recorded Sex Assigned at Female 07/20/2022 10:36 AM EDT Legal Sex Female 10:36 AM EDT Gender Identity Female 07/20/2022 10:36 AM EDT Sexual Orientation Choose not to disclose 2021 10:36 AM EDT documented as of this encounter Functional Status * Over the past 2 weeks, how often have you been bothered by any of the following problems? Question Answer Date of Assessment Author Patient Health Questionnaire -2 Score 5 08/14/2025 10:32 AM Iraida Osorio RN * Little interest or pleasure in doing things Answer Date of Assessment Author Nearly every day 08/14/2025 10:32 AM Iraida Osorio RN * Feeling down, depressed, or hopeless Answer Date of Assessment Author More than half the days 08/14/2025 10:32 AM Iraida Osorio RN * Trouble falling or staying asleep, or sleeping too much Answer Date of Assessment Author Nearly every day 08/14/2025 10:32 AM Iraida Osorio, ZARA * Feeling tired or having little energy Answer Date of Assessment Author Nearly every day 08/14/2025 10:32 AM Iraida Osorio, ZARA * Poor appetite or overeating Answer Date of Assessment Author Nearly every day 08/14/2025 10:32 AM Iraida Osorio RN * Feeling bad about yourself - or that you are a failure or have let yourself or your family down Answer Date of Assessment Author Nearly every day 08/14/2025 10:32 AM Iraida Osorio RN * Trouble concentrating on things, such as reading the newspaper or watching television Answer Date of Assessment Author Several days 08/14/2025 10:32 AM Kadeem Osorio RN * Moving or speaking so slowly that other people could have noticed? Or the opposite - being so fidgety or restless that you have been moving around a lot more than usual. Answer Date of Assessment Author More than half the days 08/14/2025 10:32 AM Iraida Osorio RN * Thoughts that you would be better off or hurting yourself in some way Answer Date of Assessment Author Not at all 08/14/2025 10:32 AM Kadeem Osoiro RN * Patient Health Questionnaire-9 Score Answer Date of Assessment Author 08/14/2025 10:32 AM Kadeem Osorio RN * Over the last 2 weeks, how often have you been bothered by any of the following problems? Question Answer Date of Assessment Author Feeling nervous, anxious, or on edge 3 08/14/2025 10:35 AM Iraida Osorio RN Not being able to stop or co ntrol worrying 3 08/14/2025 10:35 AM Iraida Osorio RN Worrying too much about diff erent things 3 08/14/2025 10:35 AM Iraida Osorio RN Trouble relaxing 3 08/14/2025 10:35 AM Iraida Osorio RN Being so restless that it is hard to sit still 3 08/14/2025 10:35 AM Iraida Osorio RN Becoming easily annoyed or irritable 3 08/14/2025 10:35 AM Iraida Osorio RN Feeling afraid as if somethi ng awful might happen 3 08/14/2025 10:35 AM Iraida Osorio RN KIANA-7 Total Score 21 08/14/2025 10:35 AM Iraida Osorio RN * How difficult have these problems made it for you to do your work, take care of things at home, or get along with other people? Answer Date of Assessment Author Extremely difficult 08/14/2025 10:32 AM Iraida Cao RN documented as of this encounter Progress Notes * Iraida Alanis RN - 08/14/2025 10:01 AM EST CM Iraida Alanis RN placed outbound call to patient for agreed upon time for initial assessment for enrollment into Adult Care Management Program. Patient's name, , and address were verified. Patient confirmed that past medical history as listed in EHR. Patient notes missing balance problemand diagnosis of Bipolar disorder (per patient given by Psychiatrist). 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 Patient reports recently having procedure of abdominoplasty with hernia repair on 07/24/25. Patient having weekly follow ups with surgeon, next follow up scheduled for tomorrow 08/15/25. Patient states incision appears to be healing well per [facility] assessment. Patient has j-drains in place, reports having 20cc of fluid yesterday and today. Serosanguineous in color. Patient states [facility] coming into the home twice a week for wound assessment, drain management and wound care. Patient reports has both sutures and steri strips in place. CM reviewed with patient signs and symptoms of infection (severe pain, redness, swelling, fever or purulent discharge) and educated to contact surgeon if any of these symptoms occur to notify. Patient states no upcoming specialist appointments until the beginning of next year. Patient had to cancel Colonoscopy and MRI of Breast due to recent surgery. Patient advised to ask Weight management provider when patient would be cleared to have these procedures done post op. Once gets clarification CM can assist with coordinating these appointments. Patient denies having any SDOH needs, no housing, food or transportation insecurities. Patient is currently following a all liquid diet with high protein to help healing process. Patient states is checking BS BID due to havingsome episodes of hypoglycemia. Fasting blood sugar today was 68mg/dL. Patient was having some mild tremors. Patient did drink a protein shake and had improvement of symptoms. Does not monitor Blood Pressure at home as no kit available. Patient did screen positive for PHQ9 and GAD7, but already established with therapist and psychiatrist with [facility]. Patient denies any SI/HI, contracts for safety. Patient has Crisis number to use as needed. LUCILA Alanis RN performed medication reconciliation with patient via telephone. Active medications, dosing and frequency reviewed and discussed. Patient states that would be interested in bubble medication compliance boxes if offered by [place] pharmacy. Patient reports needing refills of Fioricet, lancets, test strips, and inhaler. Patient also requesting Nebulizer machine as current one not working and over 10 years old. Patient advised will request meds and nebulizer machine from PCP. Reviewed if needed PCP follow up. Last OV for physical on 02/05/25, patient was supposed to have a 3 month follow up but patient was never contacted. Patient scheduled for OV on 10/16/25 at 9am. Appointment reminder mailed for patient. Care management program explained and contact information given. Patient verbalizes understanding, and able to repeat back to insurance underwriter sales. A follow up call will be placed within 10 days, patient agrees with plan. * Iraida Alanis RN - 08/14/2025 10:01 AM EST LUCILA Alanis RN, provided notification to PCP Simona Phelan MD of patient's enrollment into C3 Complex Care Program. Please see CM assessment, patient requesting DME order for nebulizer with supplies and refill on albuterol inhaler and Fioricet as no refills left at pharmacy. documented in this encounter Miscellaneous Notes * Care Plan - Iraida Alanis RN - 08/14/2025 10:01 AM EST Active Problem: Barriers to Care Dates: Start: 08/14/25 Disciplines: Interdisciplinary Goal: Manage Barriers to Care Dates: Start: 08/14/25 Expected End: 11/14/25 Description: Patient will identify and communicate with care management team any personal, social, or environmental barriers that affect their ability to access or participate in care. Disciplines: Interdisciplinary Barriers 1. Patient Adherence 2. Financial Intervention: Evaluate means of transportation to keep appointments. Dates: Start: 08/14/25 Responsible: Iraida Alanis RN Intervention: Evaluate knowledge of how to access appropriate community resources. Dates: Start: 08/14/25 Responsible: Iraida Alanis RN Intervention: Assess barriers to care (cultural, financial, cognitive, caregiver, environment, other), and identify plan to address barriers, and implement action plan and involve patient in action plan. Dates: Start: 08/14/25 Responsible: Iraida Alanis RN Problem: Behavioral Health Dates: Start: 08/14/25 Disciplines: Interdisciplinary Goal: Support Behavioral Health Dates: Start: 08/14/25 Expected End: 11/14/25 Description: Patient states will consistently attend all scheduled therapy and prescriber appointments and will promptly notify their dog daycare provider, psychiatrist, or therapist of any medication side effects or worsening symptoms Disciplines: Interdisciplinary Barriers 1. Patient Adherence 2. Disease process Intervention: Assess emotional status: e.g., anxiety, depression, agitation, delusions, hallucinations, other. Dates: Start: 08/14/25 Responsible: Iraida Alanis RN Intervention: Evaluate and document response to medication and other therapies; re-administer mental health-screening tool as needed. Dates: Start: 08/14/25 Responsible: Iraida Alanis RN Intervention: Instruct on emergency plan to use in time of emotional/mental health crisis. Dates: Start: 08/14/25 Responsible: Iraida Alanis RN Problem: Care Management Dates: Start: 08/14/25 Disciplines: Interdisciplinary Goal: Care Management Dates: Start: 08/14/25 Expected End: 11/14/25 Description: Patient will engage with dog daycare provider through scheduled calls or visits to review health goals, discuss progress, and address any barriers to care plan in the next 3 months. Disciplines: Interdisciplinary Barriers 1. Patient Adherence Intervention: Assess patient/caregiver perception of primary concerns and goals for care. Dates: Start: 08/14/25 Responsible: Iraida Alanis RN Intervention: Instruct on length of service and appropriate boundaries. Dates: Start: 08/14/25 Responsible: Iraida Alanis RN Problem: Constipation Dates: Start: 08/14/25 Disciplines: Interdisciplinary Goal: Effectively manage constipation Dates: Start: 08/14/25 Expected End: 11/14/25 Description: Patient will follow constipation management plan (e.g. increasing daily water intake, increasing fiber-rich foods) and taking prescribed or recommended medications as directed and will discuss any changes or difficulties with care team. Disciplines: Interdisciplinary Barriers 1. Patient Adherence Intervention: Provide Plan for Managing and Responding to Symptoms Dates: Start: 08/14/25 Responsible: Iraida Alanis RN Problem: Coordination of Care Dates: Start: 08/14/25 Disciplines: Interdisciplinary Goal: Effectively coordinate care Dates: Start: 08/14/25 Expected End: 11/14/25 Description: patient will notify the care team of all upcoming appointments and communicate any scheduling difficulties to receive assistance with coordination and reminders. Disciplines: Interdisciplinary Intervention: Evaluate need for Home Health Services Dates: Start: 08/14/25 Responsible: Iraida Alanis RN Problem: DME/Equipment Dates: Start: 08/14/25 Disciplines: Interdisciplinary Goal: Obtain DME/Equipment Dates: Start: 08/14/25 Expected End: 11/14/25 Description: Patient will communicate any new or ongoing DME needs (e.g. equipment repairs, replacements, new items) to care team to assist with coordination of orders to ensure timely access to equipment needs. Disciplines: Interdisciplinary Barriers 1. Difficulty communicating with Specialists Intervention: Coordinate Arrangements for DME/Supplies Dates: Start: 08/14/25 Responsible: Iraida Alanis RN Problem: Home Health Care Dates: Start: 08/14/25 Disciplines: Interdisciplinary Goal: Home Health Care Delivery Dates: Start: 08/14/25 Expected End: 11/14/25 Description: Patient will identify and obtain appropriate home and community- based services to assist with ADLs. Disciplines: Interdisciplinary Barriers 1. Lack of information and resources Intervention: Assist with Community Resource Referral(s) Dates: Start: 08/14/25 Responsible: Iraida Alanis RN Problem: Incision Wound Dates: Start: 08/14/25 Disciplines: Interdisciplinary Goal: Optimal Wound Healing Dates: Start: 08/14/25 Expected End: 11/14/25 Description: Patient will follow wound care plan as instructed by surgeon to help promote healing and prevent infection, and will notify care team of any changes or concerns with wound. Disciplines: Interdisciplinary Barriers 1. Difficulty communicating with Specialists 2. Patient Adherence Intervention: Evaluate effectiveness of wound care, treatment and preventive measures. Dates: Start: 08/14/25 Responsible: Iraida Alanis RN Intervention: Instruct patient/caregiver on S/S of incision infection (increased pain, edema, odor,drainage, redness at incision line) and when to notify physician. Dates: Start: 08/14/25 Responsible: Iraida Alanis RN Problem: Medication Concerns Dates: Start: 08/14/25 Disciplines: Interdisciplinary Goal: Improve Medication Access Dates: Start: 08/14/25 Expected End: 11/14/25 Description: Patient will notify their pharmacy, primary care provider or prescriber when medication refills are needed to prevent missed doses Disciplines: Interdisciplinary Barriers 1. Patient Adherence Intervention: Assess Medication Supply and Need For Refills. Dates: Start: 08/14/25 Responsible: Iraida Alanis RN Goal: Improve Medication Adherence Dates: Start: 08/14/25 Expected End: 11/14/25 Description: Patient agrees to trial using bubble-packaged medications to help stay organized and medications as prescribed. Patient will monitor how well this system works for them and share any challenges or improvements with care team. Disciplines: Interdisciplinary Intervention: Arrange for Adherence Packaging, Pill Packing, Bubble Packing Dates: Start: 08/14/25 Responsible: Iraida Alanis RN Goal: Improve Medication Management Dates: Start: 08/14/25 Expected End: 11/14/25 Disciplines: Interdisciplinary Intervention: Complete Medication Reconciliation Dates: Start: 08/14/25 Responsible: Iraida Alanis RN Problem: Plan of Care Dates: Start: 08/14/25 Disciplines: Interdisciplinary Goal: Patient Centered Plan of Care Dates: Start: 08/14/25 Expected End: 11/14/25 Description: Patient will actively participate in care planning by collaborating with the care teamto set, review, and work toward personal health goals, demonstrating engagement in their overall treatment and wellness plan. Disciplines: Interdisciplinary Barriers 1. Lao as a second language Intervention: Evaluate effectiveness and adequacy of plan of care, need for changes in plan of care, disciplines and frequency of visits. Involve and communicate with patient/ caregiver/ family/ interdisciplinary team/Facility staff in plan of care review and changes. Dates: Start: 08/14/25 Responsible: Iraida Alanis RN Intervention: Evaluate Plan of Care and Goal progression in conjunction with patient and/or caregiver. Dates: Start: 08/14/25 Responsible: Iraida Alanis RN Problem: Post-Op Concerns Dates: Start: 08/14/25 Disciplines: Interdisciplinary Goal: Manage Post-Op Concerns Dates: Start: 08/14/25 Expected End: 11/14/25 Description: Patient will follow post-operative management plan by taking medications as prescribed, attending all follow-up appointments, and completing wound care or activity restrictions as directed. Patient will report any new or worsening symptoms-such as fever, increased pain, or drainage-to provider within 24-48 hours to ensure a safe recovery. Disciplines: Interdisciplinary Barriers 1. Patient Adherence 2. Disease process Intervention: Assess for S/S of POST-OP complications (infection, DVT, pulmonary embolism, intestinal obstruction, etc.). Dates: Start: 08/14/25 Responsible: Iraida Alanis RN Intervention: Evaluate knowledge of post-operative healing process. Dates: Start: 08/14/25 Responsible: Iraida Alanis RN Intervention: Evaluate knowledge of S/S of post-operative complications to report (infection, DVT, pulmonary embolism, intestinal obstruction, incisional complications), instruct as needed. Dates: Start: 08/14/25 Responsible: Iraida Alanis RN Intervention: Instruct on post-operative/ incision pain management measures. Dates: Start: 08/14/25 Responsible: Iraida Alanis RN Problem: SDOH Needs Dates: Start: 08/14/25 Disciplines: Interdisciplinary Goal: Support SDOH Needs Dates: Start: 08/14/25 Expected End: 11/14/25 Description: Patient will communicate any social, financial, or environmental challenges that affect their health (such as housing, transportation, food access, or medication costs) with care management team so that they can help connect with available resources and supports. Disciplines: Interdisciplinary Barriers 1. Financial Intervention: Assess housing, finances, advanced directives, will, custody issues, citizenship, next of kin status. Dates: Start: 08/14/25 Responsible: Iraida Alanis RN Problem: Self Management Dates: Start: 08/14/25 Disciplines: Interdisciplinary Goal: Patient understands and has a plan for managing symptoms and knows when to contact physician Dates: Start: 08/14/25 Expected End: 11/14/25 Description: Patient will call their primary care provider's office for any new or urgent health concerns, utilize the walk-in clinic or nurse telephone triage services after hours as needed to to ensure timely follow-up and appropriate adjustments to the treatment plan. Disciplines: Interdisciplinary Intervention: Coordinate Care with Provider Dates: Start: 08/14/25 Responsible: Iraida Alanis RN Intervention: Provide Information for 24-Hour Nurse Line Dates: Start: 08/14/25 Responsible: Iraida Alanis RN Intervention: Patient Teach-Back of Symptom Response Plan Dates: Start: 08/14/25 Responsible: Iraida Alanis RN Intervention: Provide Contact and After-Hours Information Dates: Start: 08/14/25 Responsible: Iraida Alanis RN Goal: Patient/caregiver takes an active role in self-managing condition Dates: Start: 08/14/25 Expected End: 11/14/25 Disciplines: Interdisciplinary Intervention: Provide Plan for Managing and Responding to Symptoms Dates: Start: 08/14/25 Responsible: Iraida Alanis RN Resolved There are no resolved problems. documented in this encounter Plan of Treatment Upcoming Encounters Date Type Department Care Team (Late st Contact Info) Description 10/16/2025 9:00 AM EST Office Visit [facility] [address] [place] [address] Simona Ribeiro MD [address] [place] [address] 11/22/2025 3:30 PM EST Office Visit [facility] OPTOMET[facility] [address] [place] [address] Jessika Mcclure, OD [address] [place] [address] 12/25/2025 8:00 AM EDT Office Visit [facility] ADULT DENTAL [address], [place] [phone] Halina Reeves [address], [place] [phone] documented as of this encounter Visit Diagnoses Diagnosis Uncomplicated asthma, unspecified asthma severity, unspecified whether persistent Other migraine without status migrainosus, not intractable documented in this encounter Additional Health Concerns Assessment Noted Time PHQ-9 Depression Total Score: 20 08/14/ 025 10:32 AM EST documented as of this encounter Care Teams College Scouting Coordinator Relationship Specialty Start Date End Date Simona Ribeiro MD [address], [place] [phone] PCP - General Family Medicine 07/21/19 Iraida Alanis RN [address] [place] [address] Registered Nurse Family Medicine 08/07/25 Anne Trinh [facility] documented as of this encounter
--- OUTSIDE RECORDS SUMMARY | 2025-08-15 17:41 | XMS_ITS | Encounter Summary ---
Author Organization [employer] Address [address] [facility] [address] [place] [address] Care Team Providers Care Business Analytics Faculty Member Name Role Phone Simona Ribeiro MD Primary Care Provide r Iraida Alanis RN Unavailable [phone] Anne Trinh Unavailable Encounter Details Date Type Department Care Team (Late st Contact Info) Description 08/14/2025 Orders Only [facility] [address] [place], [place] [phone] Simona Ribeiro MD [address] [place] [address] Social History Tobacco Use Types Packs/Day Years [...] 10:32 AM Iraida Osorio RN * Feeling tired or having little energy Answer Date of Assessment Author Nearly every day 08/14/2025 10:32 AM Iraida Osorio RN * Poor appetite or overeating Answer Date [...] Not at all 08/14/2025 10:32 AM Kadeem Osorio RN * Patient Health Questionnaire-9 Score Answer Date of Assessment Author 20 08/14/2025 10:32 AM Kadeem Osorio RN * [...] to sit still 3 08/14/2025 10:35 AM Iraiad Osorio RN Becoming easily annoyed or irritable 3 08/14/2025 10:35 AM Iraida Osorio RN Feeling afraid as if somethi ng awful might happen 3 08/14/2025 10:35 AM Iraida Osorio RN KIANA-7 Total Score 21 08/14/2025 10:35 AM Iraida Osorio, ZARA * How difficult have these problems made it for you to do your work, take care of things at home, or get along with other people? Answer Date of Assessment Author Extremely difficult 08/14/2025 10:32 AM Iraida Cao, ZARA documented as of this encounter Plan of Treatment Upcoming Encounters Date Type Department Care Team (Late st Contact Info) Description 10/16/2025 9:00 AM EST Office Visit [facility] [address] [place] [address] Simona Ribeiro MD [address] [place] [address] 11/22/2025 3:30 PM EST Office Visit [facility] OPTOMETRY [address] [place] [address] Ren, Jessika, OD [address] [place] [address] 12/25/2025 8:00 AM EDT Office Visit [facility] ADULT DENTAL [address] [place] [address] Leandro, Halina [address] [place] [address] documented as of this encounter Visit Diagnoses Not on filedocumented in this encounter Additional Health Concerns Assessment Noted Time PHQ-9 Depression Total Score: 20 025 10:32 AM EST documented as of this encounter Care Teams Business Analytics Faculty Member Relationship Specialty Start Date End Date Simona Ribeiro MD [address] [place] [id number] PCP - General Family Medicine 07/21/19 Iraida Alanis, ZARA [address] [place] [address] Registered Nurse Family Medicine 08/07/25 Anne Trinh 08/07/25 [facility] 07/25/25 documented as of this encounter
--- OUTSIDE RECORDS SUMMARY | 2025-08-15 17:41 | XMS_ITS | Encounter Summary ---
Author Organization [employer] Address [address] [facility] [address] [place] [address] Care Team Providers Care Systems Management Consultant Name Role Phone Simona Ribeiro MD Primary Care Provide r Iraida Alanis RN Unavailable [phone] Anne Trinh Unavailable Encounter Details Date Type Department Care Team (Late st Contact Info) Description 08/14/2025 Plan of Care Documentation [facility] [address] [place] [address] Social History Tobacco Use Types Packs/Day Years [...] your housing situation today? I have [facility] 01/20/[address] you li [...] Author Nearly every day 08/14/2025 10:32 AM rIaida Osorio RN * Feeling down, depressed, or [...] Assessment Author Extremely difficult 08/14/2025 10:32 AM EST Iraida Perkins RN documented as of this encounter Plan of Treatment Upcoming Encounters Date Type Department Care Team (Late st Contact Info) Description 10/16/2025 9:00 AM EST Office Visit [facility] [address] [place] [address] Simona Ribeiro MD [address] [place] [address] 11/22/2025 3:30 PM EST Office Visit [facility] OPTOMETRY [address] [place] [address] RenJessika ahumada, OD [address] [place] [address] 12/25/2025 8:00 AM EDT Office Visit [facility] ADULT DENTAL [address] [place] [address] Leandro, Halina [address] [place] [address] documented as of this encounter Visit Diagnoses Not on filedocumented in this encounter Additional Health Concerns Assessment Noted Time PHQ-9 Depression Total Score: 20 025 10:32 AM EST documented as of this encounter Care Teams Systems Management Consultant Relationship Specialty Start Date End Date Simona Ribeiro MD [address] [place] [address] PCP - General Family Medicine 07/21/19 Iraida Alanis, ZARA [address] [place] [address] Registered Nurse Family Medicine 08/07/25 Anne Trinh 08/07/25 [facility] 07/25/25 documented as of this encounter
--- OUTSIDE RECORDS SUMMARY | 2025-08-15 17:41 | XMS_ITS | Encounter Summary ---
Author Organization [email or web address] Address [address] [facility] [address] [place] [address] Care Team Providers Care Tester Regulator Name Role Phone Simona Ribeiro MD Primary Care Provide r Iraida Alanis RN Unavailable [phone] Anne Trinh Unavailable Encounter Details Date Type Department Care Team (Late st Contact Info) Description 08/14/2025 Orders Only [facility] MED[facility]INE [address] [place], [place] [id number] Simona Ribeiro MD [address] [place] [address] Uncomplicated asthma, unspecified asthma severity, unspecified whether persistent; Other migraine without status migrainosus, not intractable Social History Tobacco Use Types Packs/Day Years [...] or on edge 3 08/14/2025 10:35 AM rIaida Osorio RN Not being able to stop [...] 10/16/2025 9:00 AM EST Office Visit [facility] MED[facility] [address] [place] [address] Simona Ribeiro MD [address] [place] [address] 11/22/2025 3:30 PM EST Office Visit [facility] OPTOMETRY [address] [place] [address] Ren, Jessika, OD [address] [place] [address] 12/25/2025 8:00 AM EDT Office Visit [facility] ADULT DENTAL [address] [place] [address] Leandro, Halina [address] [place] [address] documented as of this encounter Visit Diagnoses Diagnosis Uncomplicated asthma, unspecified asthma severity, unspecified whether persistent Other migraine without status migrainosus, not intractable documented in this encounter Additional Health Concerns Assessment Noted Time PHQ-9 Depression Total Score: 20 025 10:32 AM EST documented as of this encounter Care Teams Tester Regulator Relationship Specialty Start Date End Date Simona Ribeiro MD [address] [place] [id number] PCP - General Family Medicine 07/21/19 Iraida Alanis RN [address] [place] [address] Registered Nurse Family Medicine 08/07/25 Anne Trinh 08/07/25 Angel [facility] 07/25/25 documented as of this encounter
--- OUTSIDE RECORDS SUMMARY | 2025-08-15 17:41 | XMS_ITS | Clinical Summary ---
Author Organization [employer] Address [address] [facility] [address] [place] [address] Care Team Providers Care Mixing Machine Attendant Name Role Phone Simona Ribeiro MD Primary Care Provide r Iraida Alanis RN Unavailable Anne Trinh Unavailable Allergies Active Allergy Reactions Criticality Noted Date Comments Aspirin Hives,Swelling 07/12/2018 Only to ASA, other NSAIDs is ok. Allergic reaction occurred when pt was 12 years old and occurred in [place]. Penicillin G 12/06/2023 Penicillins Anaphylaxis,Hives High 07/12/2018 [...] g 023 Active Blood Glucose Monitoring Suppl ([employer]) w/Device kit 1 each in the morning and 1 each at noon. Test blood sugar twice a day. 1 kit 023 Active triamcinolone (Kenalog) 0.1 % ointmentIndicatio ns:Allergic dermatitis APPLY A THIN LAYER TOPICALLY TO THE AFFECTED AREA TWICE A DAY 30 g 1 023 Active atorvastatin (Lipitor) 20 MG tabletIndications :Other hyperlipidemia TAKE 1 TABLET BY MOUTH DAILY 90 tablet 1 024 Active famotidine (Pepcid) 40 MG tabletIndications :Gastroesophageal reflux disease without esophagitis TAKE 1 TABLET BY MOUTH AT BEDTIME 90 tablet 1 024 Active lidocaine (Lidoderm) 5 % patch Apply 1 patch topically if needed each day for moderate pain. 60 patch 5 024 Active ergocalciferol (Vitamin D-2) 1.25 MG (96204 UT) capsuleIndication s:Vitamin D deficiency Take 1 [...] into vagina at bedtime for 7 nights (MICRONESIAN) 45 g 025 Active lidocaine (Lidoderm) 5 [...] and swelling). 30 g 2 025 Active metFORMIN (Glucophage) 500 MG tabletIndications :Prediabetes TAKE 1 TABLET BY MOUTH TWICE A DAY WITH IN THE MORNING AND IN THE EVENING MEALS 60 tablet 5 025 Active albuterol (Ventolin HFA) 108 (90 Base) MCG/ACT inhalerIndication s:Uncomplicated asthma, unspecified asthma severity, unspecified whether persistent INHALE 2 PUFFS BY MOUTH EVERY 4 TO 6 HOURS NEEDED 18 g 3 Active butalbital-acetam inophen-caffeine 50-325-40 MG tabletIndications :Other migraine without status migrainosus, not intractable Take 1 tablet by mouth every 4 (four) hours. 20 tablet 1 Active Nebulizer miscIndications:U ncomplicated asthma, unspecified asthma severity, unspecified whether persistent 1 each every 6 (six) hours if needed (for asthma). 1 each Active Respiratory Therapy Supplies (Nebulizer Mask Adult/Tubing) miscIndications:U ncomplicated asthma, unspecified asthma severity, unspecified whether persistent 1 each every 6 (six) hours if needed (for asthma). 1 each Active albuterol (Ventolin HFA) 108 (90 Base) MCG/ACT inhalerIndication s:Uncomplicated asthma, unspecified asthma severity, unspecified whether persistent INHALE 2 PUFFS BY MOUTH EVERY 4 TO 6 HOURS NEEDED 18 g 3 025 Active butalbital-acetam inophen-caffeine 50-325-40 MG tabletIndications :Other migraine without status migrainosus, not intractable Take 1 tablet by mouth every 4 (four) hours. 20 tablet 1 025 Active butalbital-acetam inophen-caffeine 50-325-40 MG tabletIndications :Other migraine without status migrainosus, not intractable Take 1 tablet by mouth every 4 (four) hours. 20 tablet 1 024 2024 Discontinued(R eorder (will not trigger notification to Pharmacy)) albuterol (Ventolin HFA) 108 (90 Base) MCG/ACT inhalerIndication s:Uncomplicated asthma, unspecified asthma severity, unspecified whether persistent INHALE 2 PUFFS BY MOUTH EVERY 4 TO 6 HOURS NEEDED 18 g 3 024 2024 Discontinued(R eorder (will not trigger notification to Pharmacy)) metFORMIN (Glucophage) 500 MG tabletIndications :Prediabetes TAKE 1 TABLET BY MOUTH TWICE A DAY WITH MORNING AND EVENING MEALS 180 tablet 2024 Discontinued Nebulizer [facility] 2024 Discontinued(R eorder (will not trigger notification to Pharmacy)) Respiratory Therapy Supplies (Nebulizer Mask Adult/Tubing) [facility] 2024 Discontinued(R eorder (will not trigger notification [...] chronic allergic conjunctivitis 11/01/2023 History of dental mormonism 10/06/2023 Missing teeth, acquired 09/14/2023 Acute bacterial [...] Encounters Date Type Department Care Team Description 08/14/2025 Orders Only [facility] [address] [facility] [address] Simona Ribeiro MD 08/14/2025 Orders Only [facility] [address] [facility] [address] Simona Ribeiro MD Uncomplicated asthma, unspecified asthma severity, unspecified whether persistent; Other migraine without status migrainosus, not intractable 08/14/2025 Plan of Care Documentation [address] [address] 08/14/2025 Plan of Care Documentation [address] [address] 08/14/2025 Patient Outreach [address] [address] Simona Ribeiro MD Care Management (C3 COMPLEX INITIAL ASSESSMENT/ ENROLLMENT ) 08/13/[address] [address] Simona Ribeiro MD Care Coordination (Utilization Review) 08/13/[address] [address] Simona Ribeiro MD Call Back Request 08/13/2025 Patient Outreach [address] [address] Simona Ribeiro MD Care Coordination (C3 -[facility] telephone call outreach ) 08/07/2025 Patient Outreach [address] [address] Simona Ribeiro MD Care Coordination (C3 -[facility] telephone call outreach) 08/07/2025 Patient Outreach [address] [address] Simona Ribeiro MD Care Coordination (C3 -[facility] chart review) 08/07/2025 Patient Outreach [address] [address] Simona Ribeiro MD Care Management (C3 -CHART REVIEW ) 08/07/2025 Patient Outreach [address] [address] Simona Ribeiro MD 07/26/[address] [address] Simona Ribeiro MD Prediabetes 07/24/2025 Orders Only GENERIC EXTERNAL DATA DEPARTMENT Provider, Generic External Data 07/20/2025 Orders Only GENERIC EXTERNAL DATA DEPARTMENT Provider, Generic External Data 07/17/2025 Telephone [facility] [address] [place] [phone] Simona Ribeiro MD Care Coordination (Home Health Care Utilization) 07/16/2025 Telephone [facility] [address] [place] [address] Simona Ribeiro MD fyi 07/16/2025 Telephone [facility] [address] [place] [phone] Simona Ribeiro MD Care Coordination (Home Care Utilization ) 07/11/[address] [address] Simona Ribeiro MD 07/02/2025 Refill [facility] [address] [place] [address] Simona Ribeiro MD Prediabetes; Allergic conjunctivitis of both eyes; Allergic dermatitis 06/28/2025 Refill [facility] [address] [place] [address] Simona Ribeiro MD Fibromyalgia 06/25/2025 8:45 AM EDT Office Visit [facility] ADULT DENTAL [address] [place] [phone] Halina Reeves Dental plaque (Primary Dx); Missing [...] Description 10/16/2025 9:00 AM EST Office Visit [facility] [address] [place] [address] Simona Ribeiro MD [address] [place] [address] 11/22/2025 3:30 PM EST Office Visit [facility] OPTOMETRY [address] [place] [address] Ren, Jessika, OD [address] [place] [address] 12/25/2025 8:00 AM EDT Office Visit [facility] ADULT DENTAL [address] [place] [address] Leandro, Halina [address] [place] [address] Health Maintenance Due Date Last Done Comments CT Colonography 1980 Colonoscopy 1980 Colorectal Cancer Screening 1980 FIT DNA/Cologuard 1980 FIT 1980 FOBT 1980 Sigmoidoscopy 1980 Diabetes: Foot Exam 1990 Family Planning (PISQ) 1995 HPV Vaccines (1 - 3-dose series) 1995 Hepatitis B Vaccines (1 of 3 - 19+ 3-dose series) 1999 COVID-19 Vaccine ( season) 2025 10/23/2022, 09/09/2021, 01/26/2021, Additional history exists Influenza Vaccine (#1) 2025 , 10/16/2022, 09/01/2019, Additional history exists Diabetes: Hemoglobin A1C 08/30/2025 025, 02/09/2024, 01/31/2024, Additional history exists Dental Oral Exam 12/25/2025 06/25/2025, , 10/04/2019 Dental Prophylaxis 12/25/2025 06/25/2025, 1 11/06/2023, 09/14/2023, Additional history exists Disability Screening 02/05/2026 02/05/2025 Depression Monitoring 02/11/2026 08/14/2025, 025 Mammogram 02/16/2026 02/16/2025, 08/20, 01/17/2024, Additional history exists Diabetes: Urine Protein Screening 02/28/2026 02/28/2025, 02/28/2025 Lipid Panel 02/28/2026 02/28/2025, 01/18, 01/05/2023, Additional history exists Tobacco Screening 06/25/2026 06/25/2025 Dental X-Ray: Bitewings 06/26/2026 06/25/20 25, 09/05/2024, 09/14/2023, Additional history exists SDOH Screening 08/07/2026 08/07/2025 Alcohol/Substance Use Screening 08/14/2026 08/14/2025 Cervical Cancer Screening 08/18/2026 HPV/Cotest 08/18/2026 08/18/2021 [...] complication, without long-term current use of insulin ([facility]) BI MAMMOGRAM SCREENING TOMOSYNTHESIS BILATERAL Routine [...] 1:58 PM EST 07/25/2025 8:00 AM EST Narrative [facility] - 07/27/2025 10:41 AM EST ----- ------- Name: Regina Willson Age/Sex: 45/F : 1980 [id number] Unit#: [id number] Attend Dr: El Fisher MD Re07/24/25 Status: [facility] Location: [facility] Disch: ----- ------- SPEC : [id number] RECD: 07/25/25 STATUS: REBELRobert ORLANDO NUM: [id number] REAGAN: 07/24/25-1358 [facility] [address]: El Fisher MD ENTERED: 07/25/25 [...] tissue. No cysts or nodules are identified. Rink Rat sections are submitted for microscopic examination in cassettes A1 through A3, 1 piece each. ([facility]) IHC S/NG Disclaimer NOTE: Unless otherwise stated, all tissue is formalin-fixed and paraffin-embedded. Some or all of the immunohistochemical tests reported herein may have been developed and their performance characteristics determined by [facility]. They have not been cleared or approved by the U.S. Food and Drug Administration (FDA). However, the FDA has determined that such clearance or approval is not necessary. This laboratory is certified under the Clinical Laboratory Improvement Amendments of 1988 (CLIA) as qualified to perform high complexity clinical laboratory testing. Copies To: Simona Ribeiro MD [place] [id number] CONTINUED ON NEXT PAGE ----- ------- Name: Regina Willson Age/Sex: 45/F : 1980 Unit#: [id number] Attend Dr: El Fisher MD Re07/24/25 Status: [facility] Location: [facility] Disch: ----- ------- SPEC : [id number] RECD: 07/25/2508 STATUS: DINORA PERRY NUM: [id number] REAGAN: 07/24/25-135[facility] DR: El Fisher MD ENTERED: 07/25/25 SP TYPE: Surgical OTHR DR: Simona Ribeiro MD ORDERED: Gross Micro L3 Copies To: (Continued) El Fisher MD [facility] Weight Management Program [address] [place] [phone] ----- ------- Signed (signature on file) Nora Victoria 07/27/25 1041 ----- ------- END OF REPORT Generic External Data Provider LAB CYTOLOGY ORDE RABLES Final Result Performing Organization Address [facility] Co de Phone Number [facility] [address] [place] [address] [phone] * Glucose, Whole Blood (07/24/2025 10:42 AM EST) Glucose, Whole Blood 70 60 - 115 mg/dL [facility] Comment:METER #: [id number] 07/24/2025 10:4 2 AM EST 07/24/2025 10:46 AM EST Generic External Data Provider LAB BLOOD ORDERAB LES Final Result Performing Organization Address [facility] Co de Phone Number [facility] [address] [place] [phone] [phone] * (ABNORMAL) CBC auto differential (07/20/2025 8:00 AM EDT) White Blood Count 5.3 4.8 - 10.8 X10*3/uL [facility] Red Blood Count 4.95 4.20 - 5.50 X10*6/uL [facility] Hemoglobin 14.3 12.0 - 16.0 g/dl [facility] Hematocrit 44.7 37.0 - 47.0 % [facility] Mean Corpuscular Volume 90.3 80.0 - 98.0 fL [facility] Mean Corpuscular Hemoglobin 28.9 27.0 - 33.0 pg [facility] Mean Corpuscular HGB Conc 32.0 31.0 - 35.0 g/dl [facility] Red Cell Distribution Width 13.4 11.0 - 16.0 % [facility] Platelet Count 316 160 - 400 X10*3/uL [facility] Mean Platelet Volume 10.0 9.4 - 12.3 fL [facility] Neutrophils Percent Auto 41.1(L) 45 - 73 % [facility] Imm Gran Pct Auto 0.2 0.0 - 0.4 % [facility] Lymphocytes Percent Auto 49.3(H) 20 - 40 % [facility] Monocytes Percent Auto 6.9 2 - 11 % [facility] Eosinophils Percent Auto 1.5 0 - 4 % [facility] Basophils Percent Auto 1.0 0 - 2 % [facility] NRBC Pct Auto 0.0 0.0 - 0.2 /100WBC [facility] Neutrophils Absolute Auto 2.2 2.0 - 8.3 x10*3/uL [facility] Imm Gran Abs Auto 0.01 0.00 - 0.03 X10*3/uL [facility] Lymphocytes Absolute Auto 2.6 1.2 - 4.9 X10*3/uL [facility] Monocytes Absolute Auto 0.4 0.1 - 1.2 X10*3/uL [facility] Eosinophils Absolute Auto 0.1 0.0 - 0.4 X10*3/uL [facility] Basophils Absolute Auto 0.1 0.0 - 0.2 X10*3/uL [facility] NRBC Abs Auto 0.000 0.0 - 0.012 X10*3/uL [facility] 07/20/2025 8:00 AM EDT 07/20/2025 8:00 AM EDT Generic External Data Provider LAB BLOOD ORDERAB LES Final Result Performing Organization Address [facility] de Phone Number [facility] [address] [place] [phone] * (ABNORMAL) Partial Thromboplastin Time, Activated (APTT) (07/20/2025 8:00 AM EDT) Partial Thromboplastin Time 25.2(L) 26.7 - 34.1 SEC [facility] 07/20/2025 8:00 AM EDT 07/20/2025 8:00 AM EDT Generic External Data Provider LAB BLOOD ORDERAB LES Final Result Performing Organization Address [facility] Phone Number [facility] [address] [place] [phone] * (ABNORMAL) Prothrombin Time-INR (07/20/2025 8:00 AM EDT) Prothrombin Time 10.7(L) 10.9 - 12.4 SEC [facility] INTERNATIONAL NORM RATIO 0.9 0.9 - 1.1 [facility] Comment:INTERNATIONAL NORMAL IZED RATIO (INR) REFERENCE [...] Provider LAB BLOOD ORDERAB LES Final Result [facility] [address] [place] [phone] * Comprehensive Metabolic Panel (07/20/2025 8:00 AM EDT) Sodium 143 135 - 145 mmol/L [facility] Potassium 3.8 3.3 - 5.1 mmol/L [facility] Chloride 107 96 - 108 mmol/L [facility] Carbon Dioxide 28 22 - 29 mmol/L [facility] Anion Gap 12 12 - 20 [facility] Urea Nitrogen (BUN) 12 9 - 16 mg/dL [facility] Creatinine, Serum 0.82 0.5 - 1.4 mg/dL [facility] Creatinine Clr Calc Pharmacy 75.8 [facility] Comment:Provided height and weight: 157.48 cm,63.503 kg.eGFR (calculated from the MDRD study equation) and eCrCl(calculated from the Cockcroft-Gault equation) are based ondifferent parameters and may not yield comparable results.If eCrCl result is absurd, please check patient'sheight/weight. Estimated Glomerular Filt Rate >60 [facility] Comment:Chronic Kidney Disea se: Estimated GFR < 60 mL/min/1.59h1Rhuseh Kidney Disease: Estimated GFR < 15 mL/min/1.73m2 Glucose 85 60 - 115 mg/dL [facility] Calcium 10.1 8.4 - 10.2 mg/dL [facility] Bilirubin, Total 0.7 0.0 - 1.0 mg/dL [facility] Aspartate Amino Transferase 23 5 - 31 U/L [facility] Alanine Aminotransferase 22 0 - 31 U/L [facility] Total Protein 7.5 6.5 - 8.0 g/dL [facility] Albumin Level 4.8 3.5 - 5.0 g/dL [facility] Alkaline Phosphatase 67 39 - 117 U/L [facility] 07/20/2025 8:00 AM EDT 07/20/2025 8:00 AM EDT us Generic External Data Provider LAB BLOOD ORDERAB LES Final Result Performing Organization Address [facility] de Phone Number [facility] [address] [place] [phone] * Type and screen (07/20/2025 7:51 AM EDT) Blood Type AP [facility] Antibody Screen NEGATIVE [facility] 07/20/2025 7:51 AM EDT 07/20/2025 8:03 AM EDT Narrative [facility] - 07/20/2025 9:04 AM EDT Spec expiration changed by ALEJANDRO on 07/20/25Reason: PATNURSING:Call Blood Bank (ext. [phone]) to band patient on admission.Type and Screen in effect until 2300 on 07/24/2025Witnessed by YUMIKO us Generic External Data Provider LAB BLOOD BANK TE ST ORDERABLES Final Result Performing Organization Address [facility] Co de Phone Number [facility] [address] [place] [phone] * Hepatitis C Antibody with Reflex to HCV, RNA, Quantitative, Real-Time PCR (02/28/2025 8:27 AM EDT) Hepatitis C Antibody Nonreactive Nonreactive [facility] Comment:Antibodies to HCV no t detected; does not exclude early acuteHCV infection. Blood Venous blood specimen / Unknown 02/28/2025 8:27 AM EDT 02/28/2025 8:27 AM EDT us Simona Gaston MD LAB BLOOD ORDERABLES Final Result Performing Organization Address City/[facility]/ZIP Co de Phone Number [facility] [address] [place] [phone] * HIV-1/2 Antigen and Antibodies, Fourth Generation, with Reflexes (02/28/2025 8:27 AM EDT) HIV AB/AG Nonreactive Nonreactive [facility] Comment:HIV-1 p24 Ag and/or HIV-1/HIV-2 Ab not detected.A test result that is nonreactive does not exclude thepossibility of exposure to or infection with HIV-1 and/orHIV-2. Nonreactive results in this assay for individualswith prior exposure to HIV-1 and/or HIV-2 may be due toantigen and antibody levels that are below the limit ofdetection of this assay.The [employer] HIV Ag/Ab Combo assay result andsupplemental assay results should be interpreted inconjunction with the patient's clinical presentation,history and other laboratory results. If the results areinconsistent with clinical evidence, additional testing issuggested to confirm the result. Blood Venous blood specimen / Unknown 02/28/2025 8:27 AM EDT 02/28/2025 8:27 AM EDT us Simona Gaston MD LAB BLOOD ORDERABLES Final Result Performing Organization Address [facility]/ZIP Co de Phone Number [facility] [address] [place] [phone] * Hemoglobin A1c (02/28/2025 8:27 AM EDT) Hemoglobin A1c 5.5 <6.0 % [facility] Comment:Hemoglobin A1C Refer ence Range Adults: 4.8 - 6.0 % Non diabetic: < 6.0 % Goal: < 7.0 %Additional Action Suggested: > 8.0 %Note: Hemoglobin A1c results are invalid for patients with abnormal amounts of HbF. Blood transfusions may impact the HbA1c concentration in the patient sample. Estimated Average Glucose 111 mg/dL [facility] Comment:eAG = Estimated ave rage glucose which is %A1C expressed asaverage glucose, using the formula of the R1I-TvgwtnyHfqzbte Glucose study (ADAG), Diabetes Care, Vol.31,#8,Apr. 2007 02/28/2025 8:27 AM EDT 02/28/2025 8:27 AM EDT us Generic External Data Provider LAB BLOOD ORDERAB LES Final Result Performing Organization Address [facility] Co de Phone Number [facility] [address] [place] [phone] * (ABNORMAL) Lipid Panel, Standard (02/28/2025 8:27 AM EDT) Triglycerides 93 <150 mg/dL [facility] Comment:Desirable Triglyceri de: less than 150 mg/dLBorderline High Triglyceride 150-199 mg/dLHigh Triglyceride: 200-499 mg/dLVery High Triglyceride: greater than or equal to 5OO mg/dL Cholesterol 221(H) <200 mg/dL [facility] Comment:Desirable Cholestero l: less than 200 mg/dLBorderline High Cholesterol: 200-239 mg/dLHigh Cholesterol: greater than 239 mg/dL LDL Cholesterol Calculated 153(H) <100 mg/dL [facility] Comment:Desirable LDL: less than 100 mg/dLNear Optimal/Above Optimal LDL: 110- 129 mg/dLBorderline High LDL: 130-159 mg/dLHigh LDL: 160-189 mg/dLVery High LDL: greater than or equal to 190 mg/dL HDL Cholesterol 50 >40 mg/dL [facility] Comment:Desirable HDL: great er than 40 mg/dL Note: This HDL assay may give artificially low results in patients with liver disease. Blood Venous blood specimen / Unknown 02/28/2025 8:27 AM EDT 02/28/2025 8:27 AM EDT us Simona Gaston MD LAB BLOOD ORDERABLES Final Result Performing Organization Address City/[facility]/ZIP Co de Phone Number [facility] [address] [place] [phone] * Albumin, Random Urine W/Creatinine (02/28/2025 8:20 AM EDT) Creatinine, Urine 520.55 mg/dL [facility] Microalbumin Urine 49.0 mg/L [facility] Microalbum Creatinine Ratio Ur 9.4 <30 ug/mg cr [facility] Comment:Albumin/Creatinine R atio Reference Ranges: Normal: < 30 ug/mg creatinine Microalbuminuria: 30 - 300 ug/mg creatinineClinical Albuminuria: > 300 ug/mg creatinine Urine (Urine, Random) 02/28/2025 8:20 AM EDT 02/28/2025 9:10 AM EDT us Simona Gaston MD LAB URINE ORDERABLES Final Result [facility] [address] [place] [phone] * BI Mammogram Screening Tomosynthesis Bilateral (02/16/2025 7:52 AM EDT) Anatomical Region Laterality Modality Breast Bilateral Mammography 02/16/2025 7:52 AM EDT Narrative 02/23/2025 5:07 PM EDT [address] [place] [address] Mammography Report Signed Patient: Regina Willson MR#: [id number] : 1980 Acct:[id number] Age/Sex: 44 / F ADM Date: 02/16/25 Loc: [facility]NA.NISHA Attending Dr: Luis Carlos Adrian MD Ordering Physician: Luis Carlos Adrian MD Results: 2Beni gn Findings Date of Service: 02/16/25 Follow Up: 1 Year From Orig inal Mammogram Procedure(s): MM tomosynthesis screening BI Accession Number(s): [id number] cc: Simona Ribeiro MD; Luis Carlos Adrian [...] 02/23/25 1704 DD/ 0752 TD/TT: 02/16/25 0805 Career Development Facilitator: Procedure Note Donotuseinterpreter, Image - 02/23/[facility] [address] [place] [address] Mammography Report Signed Patient: Regina Willson#: [id number] : 1980Acct:[id number] Age/Sex: 44 / FADM Date: 02/16/25 Loc: HO.JAIO Attending Dr: Luis Carlos Adrian MD Ordering Physician: Luis Carlos Adrian MDResults: 2Beni gn Findings Date of Service: 02/16/25Follow Up: 1 Year From Orig inal Mammogram Procedure(s): MM tomosynthesis screening BI Accession Number(s): [id number] cc: Simona Ribeiro MD; Luis Carlos Adrian [...] 02/23/25 1704 DD/ 0752 TD/TT: 02/16/25 0805 Career Development Facilitator: [facility] External Provider IMG BI PROCEDURES Final Result * HPV E6/E7 RFLX DANNY 16 18/45 (08/18/2021 10:17 AM EST) HPV 16 RNA [facility] HPV 18/45 RNA [facility] HPV E6 E7 ADD [facility] HPV mRNA E6/E7 rflx Not Detected Not Detected [facility] Comment: Methodology: Campaign Assistant-Mediated Amplification This assay detects E6/E7 viral messenger RNA (mRNA) from 14 high-risk HPV types (16,18,31,33,35,39,45,51,52,56,58,59,66,68). The analytical performance characteristics of this assay have been determined by [employer]. The modifications have not been cleared or approved by the FDA. This assay has been validated pursuant to the CLIA regulations and is used for clinical purposes. For additional information, please refer to http://education.[employer]/faq/RUB430w9 (This link if provided for information/ educational purposes only.) THIS TEST WAS PERFORMED AT: [facility] [address] [place] [address] [address],[place] [address] JASWINDER PAUL MD 08/18/2021 10:1 7 AM EST Ramesh Maki MD HISTORICAL/NON ORDERABLE LABS Fi nal Result [facility] [address] * Hm Pap Smear (08/18/2021 12:00 AM EST) Historical Provider HEALTH MAINTENANCE Final Result from Last 3 Months or Most Recently Relevant to Health Maintenance [place] [address] [address] [address]-[facility] MEDICAID STAND ADULT Care Teams Mixing Machine Attendant Relationship Specialty Start Date End Date Simona Ribeiro MD [address] [place] [address] PCP - General Family Medicine 07/21/19 Iraida Alanis RN [address] [place] [address] Registered Nurse Family Medicine 08/07/25 Anne Trinh [facility]07[facility]25 [facility]
--- OUTSIDE RECORDS SUMMARY | 2025-08-15 17:41 | XMS_ITS | Encounter Summary ---
Author Organization [employer] Address [address] [facility] 7t [place] [address] Care Team Providers Care Surface Boss Name Role Phone Simona Ribeiro MD Primary Care Provide r Iraida Alanis RN Unavailable [phone] Anne Trinh Unavailable Reason for Visit * Reason Comments Care Coordination [facility] outreach Encounter Details Date Type Department Care Team (Latest Contact Info) Description 08/13/2025 Patient Outreach [facility] MEDICINE [address] [place] [address] Simona Ribeiro MD [address] [place] [address] Care Coordination (C3 DIAN Trinh telephone call outreach ) Social History Tobacco Use Types Packs/Day [...] encounter Progress Notes * Anne Trinh - 08/13/2025 10:13 AM EST W Anne Trinh placed outbound call to patient introducing herself from [facility] CM Department, in regards to remind patient of Adult Complex Care program initial assessment appt for tomorrow 08/14/25 @ 10:00 AM via telephone. Patient's name and was confirmed. Patient is aware andconfirmed will be available for call and has no barriers on attending call. Patient verbalized understanding and agrees with plan. documented in this encounter Plan of Treatment Upcoming Encounters Date Type Department Care Team ([facility] st Contact Info) Description 10/16/2025 9:00 AM EST Office Visit [facility] MEDICINE [address] [place] [address] Simona Ribeiro MD [address] [place] [address] 11/22/2025 3:30 PM EST Office Visit [facility] OPTOMETRY [address] [place] [address] Ren, Jessika, OD [address] [place] [address] 12/25/2025 8:00 AM EDT Office Visit [facility] ADULT DENTAL [address] [place] [address] Leandro, Halina [address] [place] [address] documented as of this encounter Visit Diagnoses Not on filedocumented in this encounter Additional Health Concerns Assessment Noted Time PHQ-9 Depression Total Score: 22 025 1:30 PM EST documented as of this encounter Care Teams Surface Boss Relationship Specialty Start Date End Date Simona Ribeiro MD [address] [place] [address] PCP - General Family Medicine 07/21/19 Iraida Alanis, RN [address] [place] [address] Registered Nurse Family Medicine 08/07/25 Anne Trinh 08/07/25 [facility] 02/22/24 08/13/25 [facility] documented as of this encounter
--- OUTSIDE RECORDS SUMMARY | 2025-08-15 17:41 | XMS_ITS | Encounter Summary ---
Author Organization [employer] Address [address] [facility] 7t [place] [address] Care Team Providers Care Therapeutic Recreation Assistant Name Role Phone Simona Ribeiro MD Primary Care Provide r Iraida Alanis RN Unavailable [phone] Anne Trinh Unavailable Reason for Visit * Reason Onset Date Comments Call Back Request 08/13/2025 Encounter Details Date Type Department Care Team (Late st Contact Info) Description 08/13/2025 Telephone [facility] MEDICINE [address] [place], [place] [phone] Simona Ribeiro MD [address] [place], [place] [phone] Call Back Request Social History Tobacco Use Types Packs/Day Years [...] Cao RN documented as of this encounter Miscellaneous Notes * Telephone Encounter - Chandler Rowley - 08/13/2025 12:45 PM EST Tc from Yolie at [facility] stating sent halfway authorization for 25 visits on 07/25 to 10/15 , but did not receive visits due to other [facility] service being active that they were not aware ofand is providing services Contact Yolie at [phone] documented in this encounter Plan of Treatment Upcoming Encounters Date Type Department Care Team (Late st Contact Info) Description 10/16/2025 9:00 AM EST Office Visit [facility] MEDICINE [address] [place] [address] Simona Ribeiro MD [address] [place] [address] 11/22/2025 3:30 PM EST Office Visit [facility] OPTOMETRY [address] [place] [address] Jessika Mcclure, OD [address] [place] [address] 12/25/2025 8:00 AM EDT Office Visit [facility] ADULT DENTAL [address] [place] [address] Halina Reeves [address] [place] [address] documented as of this encounter Visit Diagnoses Not on filedocumented in this encounter Additional Health Concerns Assessment Noted Time PHQ-9 Depression Total Score: 22 025 1:30 PM EST documented as of this encounter Care Teams Therapeutic Recreation Assistant Relationship Specialty Start Date End Date Simona Ribeiro MD [address] [place] [address] PCP - General Family Medicine 07/21/19 Iraida Alanis RN [address] [place] [address] Registered Nurse Family Medicine 08/07/25 Anne Trinh 08/07/25 [facility] 02/22/24 08/13/25 Angel Luis [facility] 07/25/25 documented as of this encounter
--- OUTSIDE RECORDS SUMMARY | 2025-08-15 17:41 | XMS_ITS | Encounter Summary ---
Author Organization [employer] Address [address] [facility] 7t [place] [address] Care Team Providers Care Gang Drill Press Operator Name Role Phone Simona Ribeiro MD Primary Care Provide r Iraida Alanis RN Unavailable [phone] Anne Trinh Unavailable Encounter Details Date Type Department Care Team (Late st Contact Info) Description 08/14/2025 Plan of Care Documentation [facility] MEDICINE [address] [place] [address] Social History Tobacco Use Types Packs/Day Years [...] 9:00 AM EST Office Visit [facility] MEDICINE [address] [place] [address] Simona Ribeiro MD [address] [place] [address] 11/22/2025 3:30 PM EST Office Visit [facility] OPTOMETRY [address] [place] [address] RenJessika ahumada, OD [address] [place] [address] 12/25/2025 8:00 AM EDT Office Visit [facility] ADULT DENTAL [address] [place] [address] Leandro, Halina [address] [place] [address] documented as of this encounter Visit Diagnoses Not on filedocumented in this encounter Additional Health Concerns Assessment Noted Time PHQ-9 Depression Total Score: 20 025 10:32 AM EST documented as of this encounter Care Teams Gang Drill Press Operator Relationship Specialty Start Date End Date Simona Ribeiro MD [address] [place] [address] PCP - General Family Medicine 07/21/19 Iraida Alanis, ZARA [address] [place] [address] Registered Nurse Family Medicine 08/07/25 Anne Trinh 08/07/25 [facility] 07/25/25 documented as of this encounter
--- OUTSIDE RECORDS SUMMARY | 2025-08-15 17:41 | XMS_ITS | Encounter Summary ---
Author Organization [employer] Address [address] [facility] 7t [place] [address] Care Team Providers Care Flagman Name Role Phone Simona Ribeiro MD Primary Care Provide r Iraida Alanis RN Unavailable [phone] Anne Trinh Unavailable Reason for Visit * Reason Onset Date Comments Care Coordination 08/13/2025 Utilization Re view Encounter Details Date Type Department Care Team (Late st Contact Info) Description 08/13/2025 Telephone [facility] MEDICINE [address] [place], [place] [phone] Simona Ribeiro MD [address] [place], [place] [phone] Care Coordination (Utilization Review) Social History Tobacco Use Types Packs/Day Years [...] encounter Miscellaneous Notes * Telephone Encounter - Shakira Azul LPN - 08/13/2025 1:41 PM EST Outgoing call placed to Violetta with [employer] for clarification or current services for this patient. Patient previously had [facility] services in the home and services ended on 07/14/25 with [facility]. Per chart review patient had recent surgery on 07/24/25. [facility] Veronica has called shanique has requested 25 visits with SOC date 07/25/25. Call then placed to Junie at [facility]. Junie reports that she sent Prior Authorization Request for start of care effective 07/25/25. Those requests faxed to [phone] on 07/26/25 & 08/10/25. Junie advised to fax communication to [phone] and main number to reach call center is [phone]. Junie now will send PA requests to appropriate Fax and will include 485 POC for review and PCP signature. [facility] is requesting 25 visits for patient post op care. 2 Snf visits per week x 9weeks. No [employer] C[employer]TER visits requested. 485 and Prior Authorization request pending. documented in this encounter Plan of Treatment Upcoming Encounters Date Type Department Care Team (Late st Contact Info) Description 10/16/2025 9:00 AM EST Office Visit [facility] MEDICINE [address] [place] [address] Simona Ribeiro MD [address] [place] [address] 11/22/2025 3:30 PM EST Office Visit [facility] OPTOMETRY [address] [place] [address] Jessika Mcclure, OD [address] [place] [address] 12/25/2025 8:00 AM EDT Office Visit [facility] ADULT DENTAL [address] [place] [address] Leandro, Halina [address] [place] [address] documented as of this encounter Visit Diagnoses Not on filedocumented in this encounter Additional Health Concerns Assessment Noted Time PHQ-9 Depression Total Score: 22 025 1:30 PM EST documented as of this encounter Care Teams Flagman Relationship Specialty Start Date End Date Simona Ribeiro MD [address] [place] [address] PCP - General Family Medicine 07/21/19 Iraida Alanis, ZARA [address] [place] [address] Registered Nurse Family Medicine 08/07/25 Anne Trinh 08/07/25 [employer] 02/22/24 08/13/25 Angel Luis [facility] 07/25/25 documented as of this encounter
== END 2025-08-15 16:00 | disposition home or self-care (01) ==
LOC: HO.HBS 15:10
PROVIDERS: PCP Internal Medicine; Visit Provider Physician Assistant Surgical
DX: Z98.84 Bariatric surgery status (principal); Z98.890 Other specified postprocedural states; E66.3 Overweight
CPT/HCPCS: 99214

== ENCOUNTER → 2025-08-15 15:10 | Outpatient (BNVA) | payer MEDICAID, SELFPAY | PROVIDERS: PCP Internal Medicine; Visit Provider Physician Assistant Surgical | DX: Z48.815 Encounter for surgical aftercare following surgery on the digestive system (principal); E66.3 Overweight; Z98.890 Other specified postprocedural states; Z98.84 Bariatric surgery status | CPT/HCPCS: 99212 ==

== ENCOUNTER 2025-08-22 15:23 | Outpatient (AMB) | payer MEDICAID, SELFPAY ==
--- NOTE | 2025-08-22 15:37 | A.OFFVIS_ITS ---
VS Expanded 08/22/25 16:07 BP 136/71 Blood Pressure Location Rt brachial Pulse 58 Pulse Source Pulse Oximeter Temp 97.2 F Temperature Source Temporal Artery Scan Pulse Oximetry 100 Oxygen Delivery Method Room Air Intake Visit Reasons: OV PO Panniculectomy 07/24/25 Biofuels Technology Manager Required: Yes Biofuels Technology Manager Services: Biofu[employer] Technology Manager Offered & Declined Accompanied by: Spouse Allergies Penicillins Allergy (Severe, Verified 08/22/25 16:00) Anaphylaxis seafood Allergy (Severe, Verified 08/22/25 16:00) Anaphylaxis, rash aspirin Allergy (Intermediate, Verified 08/22/25 16:00) Rash Medication List - Last Reconciled 08/22/25 by JO ANN Syed albuterol sulfate 90 mcg/actuation 2 puffs inhalation Q4-6H PRN amitriptyline 10 mg PO BEDTIME 30 days atorvastatin 20 mg PO DAILY betamethasone dipropionate 0.05% 1 appl topical DAILY PRN bupropion HCl 1 tab PO DAILY buspirone 5 mg PO BID afgclriccc-civaturqkxrbq-vpfy 50-325-40 mg 2 tabs PO DAILY PRN 30 days cholecalciferol (vitamin D3) 25 mcg PO DAILY ciprofloxacin HCl (Cipro) 500 mg PO Q12H citalopram 20 mg PO DAILY cyclobenzaprine 10 mg PO Q8H PRN divalproex ER (Depakote ER) 250 mg PO BEDTIME 90 days docusate sodium (Colace) 100 mg PO DAILY famotidine 20 mg PO BEDTIME gabapentin 300 mg PO BEDTIME hydroxyzine HCl 50 mg PO BID nystatin 1 appl topical QID ondansetron 4 mg PO DAILY PRN 30 days ondansetron 4 mg PO Q12H oxybutynin chloride 5 mg PO DAILY sennosides (senna) 8.6 mg PO DAILY thiamine HCl (vitamin B1) 100 mg PO DAILY tirzepatide (Mounjaro) 2.5 mg (0.5 mL) subcut QWEEK tizanidine 4 mg PO BID PRN 30 days verapamil ER 120 mg PO DAILY 30 days HPI Comments Details: Pt is 4w s/p panniculectomy 07/24/2025. Drain output around 15cc or less per day. No fevers at home. Following meal plan. Wearing abdominal binder. Taking abx as directed. [facility] Medical History Narcolepsy Seasonal allergies PONV (postoperative nausea and vomiting) JANNY (obstructive sleep apnea) Periodic limb movement disorder Hypersomnia Anxiety and depression COVID-19 vaccine series completed BMI 34.0-34.9,adult BMI 39.0-39.9,adult Insomnia Seizures DJD (degenerative joint disease) Stress incontinence GERD (gastroesophageal reflux disease) Hyperlipidemia Sleep apnea with use of continuous positive airway pressure (CPAP) Non-insulin dependent type 2 diabetes mellitus Obesity Well woman exam Ovarian low malignant potential tumor Umbilical hernia Migraine Asthma Morbid obesity Pannus, abdominal Surgical History History of esophagogastroduodenoscopy (EGD) (12/22/24) History of lumpectomy of right breast (~2006) Hx of tonsillectomy (12/22/23) Hx laparoscopic cholecystectomy (07/29/23) S/P laparoscopic sleeve gastrectomy (01/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 Son No problems noted. Daughter No problems noted. Social History Household Members: Family Housing: House Are you a primary customer care consultant to a significant other at home: Yes (children) Do you presently have visiting nurse or other home services: No 75 years or older and lives alone: No Alcohol intake: never Comment: counts correct Patient Tobacco Use Status: Never used Tobacco e-Cigarette/Vaping Use: Never Used service: No Female Reproductive History Menstrual Age of Menarche: 11 Physical Exam Const General: cooperative, comfortable and no acute distress Orientation/consciousness: patient oriented x3 GI Other: soft, nontender, nondistended, incisions healing well, drain output SS Neuro General: patient oriented x3 Assessment & Plan Assessment & Plan (1) S/P panniculectomy: Code(s): Z98.890 - Other specified postprocedural states Category: Surgical (2) S/P laparoscopic sleeve gastrectomy: Onset Date: 01/06/22 Comment: 01/06/22 Code(s): Z98.84 - Bariatric surgery status Category: Surgical Plan Continue high protein diet. ABX keflex x 1 more week.? Drain out today, may drive tomorrow? Abdominal binder at all times except for care x 1 month?MINIMUM. If there are concerns longer.? No walking outside or exercise for 6 weeks minimum. Walking in the house okay. Assistance getting up for 4 weeks minimum.?No lifting greater than?10 pounds x 2 months and no abdominal exercises x 3 months. ABDs to cover with DSD over umbilicus.
[2025-08-22 16:07] VITALS: BP 136/71; PULSE 58; TEMP 36.2; O2SAT 100
--- OUTSIDE RECORDS SUMMARY | 2025-08-22 18:23 | XMS_ITS | Clinical Summary ---
Author Organization [employer] Address [address] [facility] [address] [place] [address] Care Team Providers Care Aviation Project Engineer Name Role Phone Simona Ribeiro MD Primary Care Provide r Iraida Alanis RN Unavailable [phone] Anne Trinh Unavailable Allergies Active Allergy Reactions [...] g 023 Active Blood Glucose Monitoring Suppl (Mera[employer] India[employer]Focus IP Lite) w/Device kit 1 each in the [...] 024 Active ergocalciferol (Vitamin D-2) 1.25 MG (66927 UT) capsuleIndication s:Vitamin D deficiency Take 1 [...] into vagina at bedtime for 7 nights (UKRAINIAN) 45 g 025 Active lidocaine (Lidoderm) 5 [...] EVENING MEALS 180 tablet 2024 Discontinued Nebulizer [facility] 2024 Discontinued(R eorder (will not trigger notification to Pharmacy)) Respiratory Therapy Supplies (Nebulizer Mask Adult/Tubing) [facility] 2024 Discontinued(R eorder (will not trigger notification [...] chronic allergic conjunctivitis 11/01/2023 History of dental orthodoxy 10/06/2023 Missing teeth, acquired 09/14/2023 Acute bacterial [...] Encounters Date Type Department Care Team Description 08/22/2025 Telephone [facility] [address] [place] [place] [phone] Simona Ribeiro MD Care Coordination (Home Care Utilization ) 08/21/2025 Telephone [facility] [address] [place] [address] Simona Ribeiro MD 08/21/2025 Telephone [facility] [address] [place] [place] [phone] Simona Ribeiro MD Durable Medical Equipment (DME: Neblulizer) 08/14/2025 Orders Only [facility] [address] [place] [place] [phone] Simona Ribeiro MD 08/14/2025 Orders Only [facility] [address] [place] [phone] Simona Ribeiro MD Uncomplicated asthma, unspecified asthma severity, unspecified whether persistent; Other migraine without status migrainosus, not intractable 08/14/2025 Plan of Care Documentation [address] [address] 08/14/2025 Plan of Care Documentation [address] [address] 08/14/2025 Patient Outreach [address] [address] Simona Ribeiro MD Care Management (C3 COMPLEX INITIAL ASSESSMENT/ ENROLLMENT ) 08/13/[address] [address] Simona Ribeiro MD Care Coordination (Utilization Review) 08/13/[address] [address] Simona Ribeiro MD Call Back Request 08/13/2025 Patient Outreach [address] [address] Simona Ribeiro MD Care Coordination (C3 [facility] Anne Trinh telephone call outreach ) 08/07/2025 Patient Outreach [address] [address] Simona Ribeiro MD Care Coordination (C3 [facility] Anne Trinh telephone call outreach) 08/07/2025 Patient Outreach [address] [address] Simona Ribeiro MD Care Coordination (C3 [facility] Anne Trinh chart review) 08/07/2025 Patient Outreach [facility] [address] [place] [phone] Simona Ribeiro MD Care Management ([facility] -CHART REVIEW ) 08/07/2025 Patient Outreach [address] [address] Simona Ribeiro MD 07/26/[address] [address] Simona Ribeiro MD Prediabetes 07/24/2025 Orders Only GENERIC EXTERNAL DATA DEPARTMENT Provider, Generic External Data 07/20/2025 Orders Only GENERIC EXTERNAL DATA DEPARTMENT Provider, Generic External Data 07/17/[address] [address] Simona Ribeiro MD Care Coordination (Home Health Care Utilization) 07/16/[address] [address] Simona Ribeiro MD fyi 07/16/[address] [address] Simona Ribeiro MD Care Coordination (Home Care Utilization ) 07/11/[address] [address] Simona Ribeiro MD 07/02/2025 Refill [facility] [address] [place] [address] Simona Ribeiro MD Prediabetes; Allergic conjunctivitis of both eyes; Allergic dermatitis 06/28/2025 Refill [facility] [address] [place] [address] Simona Ribeiro MD Fibromyalgia 06/25/2025 8:45 AM EDT Office Visit [facility] [address] [place] [phone] Halina Reeves Dental plaque (Primary Dx); Missing [...] Description 10/16/2025 9:00 AM EST Office Visit [facility] [address] [place] [address] Simona Ribeiro MD [address] [place] [address] 11/22/2025 3:30 PM EST Office Visit [facility] [address] [place] [address] Ren, Jessika, OD [address] [place] [address] 12/25/2025 8:00 AM EDT Office Visit [facility] [address] [place] [address] Halina Reeves [address] [place] [address] Health Maintenance Due Date Last Done Comments CT Colonography 1980 Colonoscopy 1980 Colorectal Cancer Screening 1980 FIT DNA/Cologuard 1980 FIT 1980 FOBT 1980 Sigmoidoscopy 1980 Diabetes: Foot Exam 1990 Family Planning (PISQ) 1995 HPV Vaccines (1 - 3-dose series) 1995 Hepatitis B Vaccines (1 of 3 - 19+ 3-dose series) 1999 COVID-19 Vaccine ( - season) 2025 10/23/2022, 09/09/2021, 01/26/2021, Additional history [...] complication, without long-term current use of insulin ([facility]) BI MAMMOGRAM SCREENING TOMOSYNTHESIS BILATERAL Routine 02/16/2025 [...] 1:58 PM EST 07/25/2025 8:00 AM EST [facility]S - 07/27/2025 10:41 AM EST ----- ------- Name: Regina Willson Age/Sex: 45/F : 1980 Unit#: [id number] Attend Dr: El Fisher MD Re07/24/25 Status: [facility] Location: [facility] Disch: ----- ------- SPEC : [id number] RECD: 07/25/25 STATUS: DINORA PERRY NUM: [id number] REAGAN: 07/24/25-[address]: El Fisher MD [...] tissue. No cysts or nodules are identified. Suit Maker sections are submitted for microscopic examination in cassettes A1 through A3, 1 piece each. ([facility]) IHC S/NG Disclaimer NOTE: Unless otherwise stated, all tissue is formalin-fixed and paraffin-embedded. Some or all of the immunohistochemical tests reported herein may have been developed and their performance characteristics determined by [facility]. They have not been cleared or approved by the U.S. Food and Drug Administration (FDA). However, the FDA has determined that such clearance or approval is not necessary. This laboratory is certified under the Clinical Laboratory Improvement Amendments of 1988 (CLIA) as qualified to perform high complexity clinical laboratory testing. Copies To: Simona Ribeiro MD [address] [address] CONTINUED ON NEXT PAGE ----- ------- Name: Regina Willson Age/Sex: 45/F : 1980 [id number] Unit#: [id number] Attend Dr: El Fisher MD Re07/24/25 Status: [facility] Location: [facility] Disch: ----- ------- SPEC : [id number] RECD: 07/25/25 STATUS: DINORA PERRY NUM: [id number] REAGAN: 07/24/[address]: El Fisher MD ENTERED: 07/25/25 SP TYPE: Surgical OTHR DR: Simona Ribeiro MD ORDERED: Gross Micro L3 Copies To: (Continued) El Fisher MD [facility] Weight Management Program [address] [place] [phone] ----- ------- Signed (signature on file) Nora Mohan 07/27/25 1041 ----- ------- END OF REPORT us Generic External Data Provider LAB CYTOLOGY DORON ANGLIN Final Result [facility] [address] [place] [phone] * Glucose, Whole Blood (07/24/2025 10:42 AM EST) Glucose, Whole Blood 70 60 - 115 mg/dL [facility] Comment:METER #: [id number] 07/24/2025 10:4 2 AM EST 07/24/2025 10:46 AM EST us Generic External Data Provider LAB BLOOD ORDERAB LES Final Result [facility] [address] [place] [address] [phone] * (ABNORMAL) CBC auto differential (07/20/2025 8:00 AM EDT) Pathologist [facility] White Blood Count 5.3 4.8 - 10.8 X10*3/uL [facility] Red Blood Count 4.95 4.20 - 5.50 X10*6/uL [facility] Hemoglobin 14.3 12.0 - 16.0 g/dl [facility] Hematocrit 44.7 37.0 - 47.0 % [facility] Mean Corpuscular Volume 90.3 80.0 - 98.0 fL [facility] Mean Corpuscular Hemoglobin 28.9 27.0 - 33.0 pg [facility] Mean Corpuscular HGB Conc 32.0 31.0 - 35.0 g/dl [facility] Red Cell Distribution Width 13.4 11.0 - 16.0 % [facility] Platelet Count 316 160 - 400 X10*3/uL [facility] Mean Platelet Volume 10.0 9.4 - 12.3 fL [facility] Neutrophils Percent Auto 41.1(L) 45 - 73 % [facility] Imm Gran Pct Auto 0.2 0.0 - 0.4 % [facility] Lymphocytes Percent Auto 49.3(H) 20 - 40 % [facility] Monocytes Percent Auto 6.9 2 - 11 % [facility] Eosinophils Percent Auto 1.5 0 - 4 % [facility] Basophils Percent Auto 1.0 0 - 2 % [facility] NRBC Pct Auto 0.0 0.0 - 0.2 /100WBC [facility] Neutrophils Absolute Auto 2.2 2.0 - 8.3 x10*3/uL [facility] Imm Gran Abs Auto 0.01 0.00 - 0.03 X10*3/uL [facility] Lymphocytes Absolute Auto 2.6 1.2 - 4.9 X10*3/uL [facility] Monocytes Absolute Auto 0.4 0.1 - 1.2 X10*3/uL [facility] Eosinophils Absolute Auto 0.1 0.0 - 0.4 X10*3/uL [facility] Basophils Absolute Auto 0.1 0.0 - 0.2 X10*3/uL [facility] NRBC Abs Auto 0.000 0.0 - 0.012 X10*3/uL [facility] 07/20/2025 8:00 AM EDT 07/20/2025 8:00 AM EDT us Generic External Data Provider LAB BLOOD ORDERAB LES Final Result Performing Organization Address City/[facility]/ZIP Co de Phone Number [facility] [address] [place] [phone] * (ABNORMAL) Partial Thromboplastin Time, Activated (APTT) (07/20/2025 8:00 AM EDT) Partial Thromboplastin Time 25.2(L) 26.7 - 34.1 SEC [facility] 07/20/2025 8:00 AM EDT 07/20/2025 8:00 AM EDT Generic External Data Provider LAB BLOOD ORDERAB LES Final Result Performing Organization Address City/[facility] Co de Phone Number [facility] [address] [place] [phone] * (ABNORMAL) Prothrombin Time-INR (07/20/2025 8:00 AM EDT) Prothrombin Time 10.7(L) 10.9 - 12.4 SEC [facility] INTERNATIONAL NORM RATIO 0.9 0.9 - 1.1 [facility] Comment:INTERNATIONAL NORMAL IZED RATIO (INR) REFERENCE [...] Provider LAB BLOOD ORDERAB LES Final Result [facility] [address] [place] [phone] * Comprehensive Metabolic Panel (07/20/2025 8:00 AM EDT) Sodium 143 135 - 145 mmol/L [facility] Potassium 3.8 3.3 - 5.1 mmol/L [facility] Chloride 107 96 - 108 mmol/L [facility] Carbon Dioxide 28 22 - 29 mmol/L [facility] Anion Gap 12 12 - 20 [facility] Urea Nitrogen (BUN) 12 9 - 16 mg/dL [facility] Creatinine, Serum 0.82 0.5 - 1.4 mg/dL [facility] Creatinine Clr Calc Pharmacy 75.8 [facility] Comment:Provided height and weight: 157.48 cm,63.503 kg.eGFR (calculated from the MDRD study equation) and eCrCl(calculated from the Cockcroft-Gault equation) are based ondifferent parameters and may not yield comparable results.If eCrCl result is absurd, please check patient'sheight/weight. Estimated Glomerular Filt Rate >60 [facility] Comment:Chronic Kidney Disea se: Estimated GFR < 60 mL/min/1.65b5Llrymu Kidney Disease: Estimated GFR < 15 mL/min/1.73m2 Glucose 85 60 - 115 mg/dL [facility] Calcium 10.1 8.4 - 10.2 mg/dL [facility] Bilirubin, Total 0.7 0.0 - 1.0 mg/dL [facility] Aspartate Amino Transferase 23 5 - 31 U/L [facility] Alanine Aminotransferase 22 0 - 31 U/L [facility] Total Protein 7.5 6.5 - 8.0 g/dL [facility] Albumin Level 4.8 3.5 - 5.0 g/dL [facility] Alkaline Phosphatase 67 39 - 117 U/L [facility] 07/20/2025 8:00 AM EDT 07/20/2025 8:00 AM EDT us Generic External Data Provider LAB BLOOD ORDERAB LES Final Result Performing Organization Address [facility]/ZIP Co de Phone Number [facility] [address] [place] [phone] * Type and screen (07/20/2025 7:51 AM EDT) Blood Type AP [facility] Antibody Screen NEGATIVE [facility] 07/20/2025 7:51 AM EDT 07/20/2025 8:03 AM EDT Narrative [facility] - 07/20/2025 9:04 AM EDT Spec expiration changed by ALEJANDRO on 07/20/25Reason: PATNURSING:Call Blood Bank (ext. [phone]) to band patient on admission.Type and Screen in effect until 2300 on 07/24/2025Witnessed by YUMIKO us Generic External Data Provider LAB BLOOD BANK TE ST ORDERABLES Final Result Performing Organization Address [facility]/ZIP Co de Phone Number [facility] [address] [place] [phone] [phone] * Hepatitis C Antibody with Reflex to HCV, RNA, Quantitative, Real-Time PCR (02/28/2025 8:27 AM EDT) Hepatitis C Antibody Nonreactive Nonreactive [facility] Comment:Antibodies to HCV no t detected; does not exclude early acuteHCV infection. Blood Venous blood specimen / Unknown 02/28/2025 8:27 AM EDT 02/28/2025 8:27 AM EDT us Simona Gaston MD LAB BLOOD ORDERABLES Final Result Performing Organization Address [facility] Co de Phone Number [facility] [address] [place] [phone] * HIV-1/2 Antigen and Antibodies, Fourth Generation, with Reflexes (02/28/2025 8:27 AM EDT) HIV AB/AG Nonreactive Nonreactive [facility] Comment:HIV-1 p24 Ag and/or HIV-1/HIV-2 Ab not detected.A test result that is nonreactive does not exclude thepossibility of exposure to or infection with HIV-1 and/orHIV-2. Nonreactive results in this assay for individualswith prior exposure to HIV-1 and/or HIV-2 may be due toantigen and antibody levels that are below the limit ofdetection of this assay.The [employer] HIV Ag/Ab Combo assay result andsupplemental assay results should be interpreted inconjunction with the patient's clinical presentation,history and other laboratory results. If the results areinconsistent with clinical evidence, additional testing issuggested to confirm the result. Blood Venous blood specimen / Unknown 02/28/2025 8:27 AM EDT 02/28/2025 8:27 AM EDT us Simona Gaston MD LAB BLOOD ORDERABLES Final Result Performing Organization Address [facility]/ZIP Co de Phone Number [facility] [address] [place] [phone] * Hemoglobin A1c (02/28/2025 8:27 AM EDT) Hemoglobin A1c 5.5 <6.0 % [facility] Comment:Hemoglobin A1C Refer ence Range Adults: 4.8 - 6.0 % Non diabetic: < 6.0 % Goal: < 7.0 %Additional Action Suggested: > 8.0 %Note: Hemoglobin A1c results are invalid for patients with abnormal amounts of HbF. Blood transfusions may impact the HbA1c concentration in the patient sample. Estimated Average Glucose 111 mg/dL [facility] Comment:eAG = Estimated ave rage glucose which is %A1C expressed asaverage glucose, using the formula of the U9T-PdedfkfVmtufwv Glucose study (ADAG), Diabetes Care, Vol.31,#8,Apr. 2007 02/28/2025 8:27 AM EDT 02/28/2025 8:27 AM EDT us Generic External Data Provider LAB BLOOD ORDERAB LES Final Result Performing Organization Address City/State/[facility] Co de Phone Number [facility] [address] [place] [phone] * (ABNORMAL) Lipid Panel, Standard (02/28/2025 8:27 AM EDT) Triglycerides 93 <150 mg/dL [facility] Comment:Desirable Triglyceri de: less than 150 mg/dLBorderline High Triglyceride 150-199 mg/dLHigh Triglyceride: 200-499 mg/dLVery High Triglyceride: greater than or equal to 5OO mg/dL Cholesterol 221(H) <200 mg/dL [facility] Comment:Desirable Cholestero l: less than 200 mg/dLBorderline High Cholesterol: 200-239 mg/dLHigh Cholesterol: greater than 239 mg/dL LDL Cholesterol Calculated 153(H) <100 mg/dL [facility] Comment:Desirable LDL: less than 100 mg/dLNear Optimal/Above Optimal LDL: 110- 129 mg/dLBorderline High LDL: 130-159 mg/dLHigh LDL: 160-189 mg/dLVery High LDL: greater than or equal to 190 mg/dL HDL Cholesterol 50 >40 mg/dL [facility] Comment:Desirable HDL: great er than 40 mg/dL Note: This HDL assay may give artificially low results in patients with liver disease. Blood Venous blood specimen / Unknown 02/28/2025 8:27 AM EDT 02/28/2025 8:27 AM EDT us Simona Gaston MD LAB BLOOD ORDERABLES Final Result Performing Organization Address [facility] Co de Phone Number [facility] [address] [place] [phone] * Albumin, Random Urine W/Creatinine (02/28/2025 8:20 AM EDT) Creatinine, Urine 520.55 mg/dL [facility] Microalbumin Urine 49.0 mg/L [facility] Microalbum Creatinine Ratio Ur 9.4 <30 ug/mg cr [facility] Comment:Albumin/Creatinine R atio Reference Ranges: Normal: < 30 ug/mg creatinine Microalbuminuria: 30 - 300 ug/mg creatinineClinical Albuminuria: > 300 ug/mg creatinine Urine (Urine, Random) 02/28/2025 8:20 AM EDT 02/28/2025 9:10 AM EDT us Simona Gaston MD LAB URINE ORDERABLES Final Result Performing Organization Address [facility] Co de Phone Number [facility] [address] [place] [phone] * BI Mammogram Screening Tomosynthesis Bilateral (02/16/2025 7:52 AM EDT) Anatomical Region Laterality Modality Breast Bilateral Mammography 02/16/2025 7:52 AM EDT Narrative 02/23/2025 5:07 PM EDT [facility] [address] [place] [address] Mammography Report Signed Patient: Regina Willson MR#: [id number] : 1980 Acct:[id number] Age/Sex: 44 / F ADM Date: 02/16/25 Loc: [facility].MAMMO Attending Dr: Luis Carlos Adrian MD Ordering Physician: Luis Carlos Adrian MD Results: 2Beni gn Findings Date of Service: 02/16/25 Follow Up: 1 Year From Orig inal Mammogram Procedure(s): MM tomosynthesis screening BI Accession Number(s): [id number] cc: Simona Ribeiro MD; Luis Carlos Adrian [...] 02/23/2025 05:04 PM EDT Dictated By: Mya Goezt DO Signed By: <Electronically signed by Mya Goetz DO in OV> 02/23/25 1704 DD/ 0752 TD/TT: 02/16/25 0805 Ob Gyn Physician Assistant: Procedure Note Doncalter, Image - 02/23/2025 [facility] [address] [place], [place] [address] Mammography Report Signed Patient: Regina Willson#: [id number] : 1980Acct:[id number] Age/Sex: 44 / FADM Date: 02/16/25 Loc: HO.MAMMO Attending Dr: Luis Carlos Adrian MD Ordering Physician: Luis Carlos Adrian MDResults: 2Beni gn Findings Date of Service: 02/16/25Follow Up: 1 Year From Orig ina Mammogram Procedure(s): MM tomosynthesis screening BI Accession Number(s): [id number] cc: Simona Ribeiro MD; Luis Carlos Adrian [...] 02/23/25 1704 DD/ 0752 TD/TT: 02/16/25 0805 Ob Gyn Physician Assistant: [facility] External Provider IMG BI PROCEDURES Final Result * HPV E6/E7 RFLX DANNY 16 18/45 (08/18/2021 10:17 AM EST) HPV 16 RNA [facility] HPV 18/45 RNA [facility] HPV E6 E7 ADD [facility] HPV mRNA E6/E7 rflx Not Detected Not Detected [facility] Comment: Methodology: Dev Technical Mgr-Mediated Amplification This assay detects E6/E7 viral messenger RNA (mRNA) from 14 high-risk HPV types (16,18,31,33,35,39,45,51,52,56,58,59,66,68). The analytical performance characteristics of this assay have been determined by [employer]. The modifications have not been cleared or approved by the FDA. This assay has been validated pursuant to the CLIA regulations and is used for clinical purposes. For additional information, please refer to http://education.Funji/faq/NGH249w0 (This link if provided for information/ educational purposes only.) THIS TEST WAS PERFORMED AT: [facility] [address] [place] [address] [address]LO[address],[place] [address] JASWINDER PAUL MD 08/18/2021 10:1 7 AM EST Ramesh Maki MD HISTORICAL/NON ORDERABLE LABS Fi nal Result [facility] [address] * Hm Pap Smear (08/18/2021 12:00 AM EST) Historical Provider HEALTH MAINTENANCE Final Result from Last 3 Months or Most Recently Relevant to Health Maintenance Insurance [facility] ST[facility] ADULT Care Teams Aviation Project Engineer Relationship Specialty Start Date End Date Simona Ribeiro MD [address] [place] [address] PCP - General Family Medicine 07/21/19 Iraida Alanis RN [address] [place] [address] Registered Nurse Family Medicine 08/07/25 Anne Trinh 08/07/25 [facility] 07/25/25
--- OUTSIDE RECORDS SUMMARY | 2025-08-22 18:23 | XMS_ITS | Encounter Summary ---
Author Organization [employer] Address 75 [facility] 7t [place] [address] Care Team Providers Care Health Record Technician Name Role Phone Simona Ribeiro MD Primary Care Provide r Iraida Alanis RN Unavailable [phone] Anne Trinh Unavailable Encounter Details Date Type Department Care Team (Late st Contact Info) Description 08/21/2025 Telephone [facility] MEDICINE [address] [place], [place] [phone] Simona Ribeiro MD 230 [place], [place] [phone] Social History Tobacco Use Types Packs/Day Years [...] the past 12 months, has t he goBramble, gas, oil or water company threatened to [...] Description 10/16/2025 9:00 AM EST Office Visit [facility] MEDICINE 230 [place] [address] Simona Ribeiro MD 230 [place] [address] 11/22/2025 3:30 PM EST Office Visit [facility] OPTOMETRY [address] [place] [address] Ren, Jessika, OD 230 [place] [address] 12/25/2025 8:00 AM EDT Office Visit [facility] ADULT DENTAL 230 [place] [address] Halina Reeves 230 [place] [address] documented as of this encounter Visit Diagnoses Not on filedocumented in this encounter Additional Health Concerns Assessment Noted Time PHQ-9 Depression Total Score: 20 08/14/2 025 10:32 AM EST documented as of this encounter Care Teams Health Record Technician Relationship Specialty Start Date End Date Simona Ribeiro MD 230 [place] [address] PCP - General Family Medicine 07/21/19 Iraida Alanis RN 230 [place] [address] Registered Nurse Family Medicine 08/07/25 Anne Trinh 08/07/25 Angel Luis [facility] 07/25/25 documented as of this encounter
--- OUTSIDE RECORDS SUMMARY | 2025-08-22 18:23 | XMS_ITS | Encounter Summary ---
Author Organization [employer] Address 75 [facility] 7t [place] [address] Care Team Providers Care Animal Husbandry Teacher Name Role Phone Simona Ribeiro MD Primary Care Provide r Iraida Alanis RN Unavailable [phone] Anne Trinh Unavailable Reason for Visit * Reason Onset Date Comments Home Care Services 12/07/2022 I called the pt regarding a Physician Summary Form, from [employer]. She stated that she does not [...] st Contact Info) Description 12/07/[address] [facility] MEDICINE 230 [place] [address] Simona Ribeiro MD 230 [place] [address] Home Care Services (I called the pt regarding a Physician Summary Form, from [employer]. She stated that she does not [...] Description 10/16/2025 9:00 AM EST Office Visit [facility] MEDICINE 230 [place] [address] Simona Ribeiro MD 230 [place] [address] 11/22/2025 3:30 PM EST Office Visit [facility] OPTOMETRY [address] [place] [address] Ren, Jessika, OD 230 [place] [address] 12/25/2025 8:00 AM EDT Office Visit [facility] ADULT DENTAL [address] [place] [address] Leandro, Halina [address] [place] [address] documented as of this encounter Visit Diagnoses Not on filedocumented in this encounter Care Teams Animal Husbandry Teacher Relationship Specialty Start Date End Date Simona Ribeiro MD [address] [place] [address] PCP - General Family Medicine 07/21/19 Iraida Alanis RN [address] [place] [address] Registered Nurse Family Medicine 08/07/25 Anne Trinh 08/07/25 [employer] 02/22/24 08/13/25 Angel Luis [facility] 07/25/25 documented as of this encounter
--- OUTSIDE RECORDS SUMMARY | 2025-08-22 18:23 | XMS_ITS ---
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 Case Team Name Relationship Phone Iraida Alanis RN(Responsible Staff) Registered Nurse Continued Care and Services Coordination
--- OUTSIDE RECORDS SUMMARY | 2025-08-22 18:23 | XMS_ITS | Encounter Summary ---
Author Organization [employer] Address 75 [facility] 7t [place] [address] Care Team Providers Care Plug Sorter Name Role Phone Simona Ribeiro MD Primary Care Provide r Iraida Alanis RN Unavailable [phone] Anne Trinh Unavailable Reason for Visit * Reason Onset Date Comments Care Coordination 08/22/2025 Home Care Util ization Encounter Details Date Type Department Care Team (Late st Contact Info) Description 08/22/2025 Telephone [facility] MEDICINE 230 [place], [place] [phone] Simona Ribeiro MD 230 [place], [place] [phone] Care Coordination (Home Care Utilization ) Social History Tobacco Use Types Packs/Day [...] Telephone Encounter - Shakira Azul LPN - 08/22/2025 11:28 AM EST Call returned for clarification of email this morning. [email or web address] Billing is requesting only Medicaid R#. For billing purpose. No other concerns at present. Yolanda Marquis updated with request. documented in this encounter Plan of Treatment Upcoming Encounters Date Type Department Care Team (Late st Contact Info) Description 10/16/2025 9:00 AM EST Office Visit [facility] MEDICINE 230 [place], [place] [phone] Simona Ribeiro MD 230 [place], [place] [phone] 11/22/2025 3:30 PM EST Office Visit [facility] OPTOMETRY [address] [place] [address] Ren, Jessika, OD 230 [place] [address] 12/25/2025 8:00 AM EDT Office Visit [facility] ADULT DENTAL 230 [place] [address] Leandro, Halina [address] [place] [address] documented as of this encounter Visit Diagnoses Not on filedocumented in this encounter Additional Health Concerns Assessment Noted Time PHQ-9 Depression Total Score: 20 025 10:32 AM EST documented as of this encounter Care Teams Plug Sorter Relationship Specialty Start Date End Date Simona Ribeiro MD 230 [place] [address] PCP - General Family Medicine 07/21/19 Iraida Alanis, ZARA 230 [place] [address] Registered Nurse Family Medicine 08/07/25 Anne Trinh 08/07/25 [facility] documented as of this encounter
--- OUTSIDE RECORDS SUMMARY | 2025-08-22 18:23 | XMS_ITS | Encounter Summary ---
Author Organization [employer] Address 75 [facility] 7t [place] [address] Care Team Providers Care Chain Machine Operator Name Role Phone Simona Ribeiro MD Primary Care Provide r Iraida Alanis RN Unavailable [phone] Anne Trinh Unavailable Encounter Details Date Type Department Care Team (Late Contact Info) Description 06/14/[address] [facility] MEDICINE [address] [place] [address] Nemo Patel Social History Tobacco Use [...] Office Visit [facility] MEDICINE [address] [place] [address] [phone] Simona Ribeiro MD [address] [place] [address] [phone] 11/22/2025 3:30 PM EST Office Visit [facility] OPTOMETRY [address] [place] [address] Jessika Mcclure, OD 230 [place] [address] 12/25/2025 8:00 AM EDT Office Visit [facility] ADULT DENTAL 230 [place] [address] Leandro, Halina 230 [place] [address] documented as of this encounter Procedures Procedure Name Priority Date/Time Associated Diagnosis Comments PAP/HPV Routine 08/18/2021 12:00 AM EST documented in this encounter Results * Pap Smear (08/18/2021 12:00 AM EST) us Historical Provider HEALTH MAINTENANCE Final Result documented in this encounter Visit Diagnoses Not on filedocumented in this encounter Care Teams Chain Machine Operator Relationship Specialty Start Date End Date Simona Ribeiro MD 230 [place] [address] PCP - General Family Medicine 07/21/19 Iraida Alanis RN 230 [place] [address] Registered Nurse Family Medicine 08/07/25 Anne Trinh 08/07/25 [employer] 02/22/24 08/13/25 [facility] 07/25/25 documented as of this encounter
--- OUTSIDE RECORDS SUMMARY | 2025-08-22 18:23 | XMS_ITS | Encounter Summary ---
Author Organization [employer] Address 75 [facility] 7t [place] [address] Care Team Providers Care Cattle Sticker Name Role Phone Simona Ribeiro MD Primary Care Provide r Iraida Alanis RN Unavailable [phone] Anne Trinh Unavailable Encounter Details Date Type Department Care Team (Latest Contact Info) Description 10/04/2019 Abstract [facility] CONVERSIONS Dental, Provider, DDS Social History [...] Description 10/16/2025 9:00 AM EST Office Visit [facility] MEDICINE 230 [place] [address] Simona Ribeiro MD 230 [place] [address] 11/22/2025 3:30 PM EST Office Visit [facility] OPTOMETRY [address] [place] [address] Jessika Mcclure, OD 230 [place] [address] 12/25/2025 8:00 AM EDT Office Visit [facility] ADULT DENTAL 230 [place], [place] [phone] Halina Reeves 230 [place], [place] [phone] documented as of this encounter Visit Diagnoses Not on filedocumented in this encounter Care Teams Cattle Sticker Relationship Specialty Start Date End Date Simona Ribeiro MD 230 [place], [place] [phone] PCP - General Family Medicine 07/21/19 Iraida Alanis RN 230 [place], [place] [phone] Registered Nurse Family Medicine 08/07/25 Anne Trinh 08/07/25 [email or web address] 02/22/24 08/13/25 Angel Luis [facility] 07/25/25 documented as of this encounter
--- OUTSIDE RECORDS SUMMARY | 2025-08-22 18:23 | XMS_ITS | Encounter Summary ---
Author Organization [employer] Address 75 [facility] 7t [place] [address] Care Team Providers Care Home Aid Name Role Phone Simona Ribeiro MD Primary Care Provide r Iraida Alanis RN Unavailable [phone] Anne Trinh Unavailable Encounter Details Date Type Department Care Team (Late st Contact Info) Description 08/14/2025 Orders Only [facility] MEDICINE 230 [place], [place] [phone] Simona Ribeiro MD 230 [place], [place] [phone] Social History Tobacco Use Types Packs/Day Years [...] Description 10/16/2025 9:00 AM EST Office Visit [facility] MEDICINE [address] [place] [address] Simona Ribeiro MD 230 [place] [address] 11/22/2025 3:30 PM EST Office Visit [facility] OPTOMETRY [address] [place] [address] Ren, Jessika, OD 230 [place] [address] 12/25/2025 8:00 AM EDT Office Visit [facility] ADULT DENTAL 230 [place] [address] Leandro, Halina [address] [place] [address] documented as of this encounter Visit Diagnoses Not on filedocumented in this encounter Additional Health Concerns Assessment Noted Time PHQ-9 Depression Total Score: 20 025 10:32 AM EST documented as of this encounter Care Teams Home Aid Relationship Specialty Start Date End Date Simona Ribeiro MD [address] [place] [address] PCP - General Family Medicine 07/21/19 Iraida Alanis, ZARA 230 [place] [address] Registered Nurse Family Medicine 08/07/25 Anne Trinh 08/07/25 Angel Luis A [facility] 07/25/25 documented as of this encounter
--- OUTSIDE RECORDS SUMMARY | 2025-08-22 18:23 | XMS_ITS ---
Author Organization [employer] Address 75 [facility] 7t [place] [address] Care Team Providers Care Dietitian Helper Name Role Phone Simona Ribeiro MD Primary Care Provide r Iraida Alanis RN Unavailable [phone] Anne Trinh Unavailable CHW Complex Status:Enrolled (Active) Start date:08/07/2025 Enrollment date:08/13/2025 Enrollment reason:Referred by provider Overview Home Health Utilization Referral. Please outreach to patient. Case Team Name Relationship Phone Anne Trinh(Responsible Staff) Continued Care and Services Coordination
--- OUTSIDE RECORDS SUMMARY | 2025-08-22 18:23 | XMS_ITS | Encounter Summary ---
Author Organization [employer] Address 75 [facility] 7t [place] [address] Care Team Providers Care Falsework Builder Name Role Phone Simona Ribeiro MD Primary Care Provide r Iraida Alanis RN Unavailable [phone] Anne Trinh Unavailable Reason for Visit * Reason Onset Date Comments Durable Medical Equipment 08/21/2025 DME: N eblulizer Encounter Details Date Type Department Care Team (Late st Contact Info) Description 08/21/2025 Telephone [facility] MEDICINE 230 [place], [place] [phone] Simona Ribeiro MD 230 [place], [place] [phone] Durable Medical Equipment (DME: Neblulizer) Social History Tobacco Use Types Packs/Day Years [...] encounter Miscellaneous Notes * Telephone Encounter - Emerald Mckoy - 08/21/2025 11:04 AM EST DME order for Nebulizer was generated and sent to [facility] via FAX with supporting documentation. Confirmation was uploaded to Media, documented in this encounter Plan of Treatment Upcoming Encounters Date Type Department Care Team (Late st Contact Info) Description 10/16/2025 9:00 AM EST Office Visit [facility] MEDICINE 230 [place], [place] [phone] Simona Ribeiro MD [address] [place], [place] [phone] 11/22/2025 3:30 PM EST Office Visit [facility] OPTOMETRY [address] [place], [place] [phone] Jessika Mcclure, OD 230 [place], [place] [phone] 12/25/2025 8:00 AM EDT Office Visit [facility] ADULT DENTAL 230 [place], [place] [phone] Halina Reeves 230 [place], [place] [phone] documented as of this encounter Visit Diagnoses Not on filedocumented in this encounter Additional Health Concerns Assessment Noted Time PHQ-9 Depression Total Score: 20 025 10:32 AM EST documented as of this encounter Care Teams Falsework Builder Relationship Specialty Start Date End Date Simona Ribeiro MD 230 [place], [place] [phone] PCP - General Family Medicine 07/21/19 Iraida Alanis RN [address] [place] [address] [phone] Registered Nurse Family Medicine 08/07/25 Anne Trinh 08/07/25 [facility] 07/25/25 documented as of this encounter
--- OUTSIDE RECORDS SUMMARY | 2025-08-22 18:23 | XMS_ITS | Encounter Summary ---
Author Organization [employer] Address 75 [facility] 7t [place] [address] Care Team Providers Care Paper Supervisor Name Role Phone Simona Ribeiro MD Primary Care Provide r Iraida Alanis RN Unavailable [phone] Anne Trinh Unavailable Reason for Visit * Reason Comments Med Refill Encounter Details Date Type Department Care Team (Late st Contact Info) Description 12/22/2022 Refill [facility] MEDICINE 230 [place], [place] [phone] Rishabh Mcnally MD 230 [place], [place] [phone] Vaginal candidiasis Social History Tobacco Use Types [...] Description 10/16/2025 9:00 AM EST Office Visit [facility] 230 [place] [address] Simona Ribeiro MD 230 [place] [address] 11/22/2025 3:30 PM EST Office Visit [facility] OPTOMETRY [address] [place] [address] Ren, Jessika, OD 230 [place] [address] 12/25/2025 8:00 AM EDT Office Visit [facility] ADULT DENTAL [address] [place] [address] Halina Reeves 230 [place] [address] documented as of this encounter Visit Diagnoses Diagnosis Vaginal candidiasis Candidiasis of vulva and vagina documented in this encounter Care Teams Paper Supervisor Relationship Specialty Start Date End Date Simona Ribeiro MD 230 [place] [address] PCP - General Family Medicine 07/21/19 Iraida Alanis RN [address] [place] [address] Registered Nurse Family Medicine 08/07/25 Anne Trinh 08/07/25 [employer] 02/22/24 08/13/25 [facility] Services 07/25/25 documented as of this encounter
--- OUTSIDE RECORDS SUMMARY | 2025-08-22 18:23 | XMS_ITS | Encounter Summary ---
Author Organization [employer] Address 75 [facility] 7t [place] [address] Care Team Providers Care Communication Center Operator Name Role Phone Simona Ribeiro MD Primary Care Provide r Iraida Alanis RN Unavailable [phone] Anne Trinh Unavailable Reason for Visit * Reason Onset Date Comments Call Back Request 08/13/2025 Encounter Details Date Type Department Care Team (Late st Contact Info) Description 08/13/2025 Telephone [facility] MEDICINE 230 [place], [place] [phone] Simona Ribeiro MD 230 [place], [place] [phone] Call Back Request Social History Tobacco Use [...] your housing situation today? I have trinitygisselle arhman 01/20/[address] you li [...] 12:45 PM EST Tc from Yolie at [facility] stating sent group home authorization for 25 visits on 07/25 to 10/15 , but did not receive visits due to other [facility] service being active that they were not aware ofand is providing services Contact Yolie at [phone] documented in this encounter Plan of Treatment Upcoming Encounters Date Type Department Care Team (Late st Contact Info) Description 10/16/2025 9:00 AM EST Office Visit [facility] MEDICINE [address] [place] [address] Simona Ribeiro MD [address] [place] [address] 11/22/2025 3:30 PM EST Office Visit [facility] OPTOMETRY [address] [place] [address] Jessika Mcclure, OD 230 [place] [address] 12/25/2025 8:00 AM EDT Office Visit [facility] ADULT DENTAL 230 [place] [address] Halina Reeves 230 [place] [address] documented as of this encounter Visit Diagnoses Not on filedocumented in this encounter Additional Health Concerns Assessment Noted Time PHQ-9 Depression Total Score: 22 025 1:30 PM EST documented as of this encounter Care Teams Communication Center Operator Relationship Specialty Start Date End Date Simona Ribeiro MD 230 [place] [address] PCP - General Family Medicine 07/21/19 Iraida Alanis RN [address] [place] [address] Registered Nurse Family Medicine 08/07/25 Anne Trinh 08/07/25 [employer] 02/22/24 08/13/25 Angel Luis [facility] 07/25/25 documented as of this encounter
== END 2025-08-22 16:20 | disposition home or self-care (01) ==
LOC: HO.HBS 15:24
PROVIDERS: PCP Internal Medicine; Visit Provider Physician Assistant Surgical
DX: Z71.3 Dietary counseling and surveillance (principal); Z98.890 Other specified postprocedural states; Z98.84 Bariatric surgery status
CPT/HCPCS: 99024

== ENCOUNTER → 2025-08-22 15:23 | Outpatient (BNVA) | payer MEDICAID, SELFPAY | PROVIDERS: PCP Internal Medicine; Visit Provider Physician Assistant Surgical | DX: Z48.817 Encounter for surgical aftercare following surgery on the skin and subcutaneous tissue (principal); Z98.890 Other specified postprocedural states; Z98.84 Bariatric surgery status | CPT/HCPCS: 99212 ==

== ENCOUNTER 2025-08-29 15:10 | Outpatient (AMB) | payer MEDICAID, SELFPAY ==
--- NOTE | 2025-08-29 15:18 | A.OFFVIS_ITS ---
VS Expanded 08/29/25 15:24 BP 125/72 Blood Pressure Location Rt brachial Blood Pressure Position Sitting Pulse 82 Pulse Source Pulse Oximeter Temp 96.5 F L Temperature Source Temporal Artery Scan Pulse Oximetry 97 Oxygen Delivery Method Room Air Height 5 ft 2 in Weight 141 lb 9.6 oz BMI 25.9 Body Fat % 36.6 Body Fat Mass 51.8 Fat Free Mass 89.8 Visceral Fat Rating 7.0 Body Water % 45.2 Body Water Mass 64.0 Muscle Mass/Score 85.0 Basal Metabolic Rate/Score 1,248 Intake Visit Reasons: OV PO Panniculectomy 07/24/25 Allergies Penicillins Allergy (Severe, Verified 08/22/25 16:00) Anaphylaxis seafood Allergy (Severe, Verified 08/22/25 16:00) Anaphylaxis, rash aspirin Allergy (Intermediate, Verified 08/22/25 16:00) Rash HPI Comments Details: Pt is 5w s/p panniculectomy 07/24/2025. Drain was removed last week and pt continued on abx. No fevers at home. Following meal plan. Wearing abdominal binder. [facility] Medical History Narcolepsy Seasonal allergies PONV (postoperative nausea and vomiting) JANNY (obstructive sleep apnea) Periodic limb movement disorder Hypersomnia Anxiety and depression COVID-19 vaccine series completed BMI 34.0-34.9,adult BMI 39.0-39.9,adult Insomnia Seizures DJD (degenerative joint disease) Stress incontinence GERD (gastroesophageal reflux disease) Hyperlipidemia Sleep apnea with use of continuous positive airway pressure (CPAP) Non-insulin dependent type 2 diabetes mellitus Obesity Well woman exam Ovarian low malignant potential tumor Umbilical hernia Migraine Asthma Morbid obesity Pannus, abdominal Surgical History History of esophagogastroduodenoscopy (EGD) (12/22/24) History of lumpectomy of right breast (~2006) Hx of tonsillectomy (12/22/23) Hx laparoscopic cholecystectomy (07/29/23) S/P laparoscopic sleeve gastrectomy (01/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 Son No problems noted. Daughter No problems noted. Social History Household Members: Family Housing: House Are you a primary behavioral health care coordinator to a significant other at home: Yes (children) Do you presently have visiting nurse or other home services: No 75 years or older and lives alone: No Alcohol intake: never Comment: counts correct Patient Tobacco Use Status: Never used Tobacco e-Cigarette/Vaping Use: Never Used service: No Female Reproductive History Menstrual Age of Menarche: 11 Assessment & Plan Assessment & Plan (1) S/P panniculectomy: Code(s): Z98.890 - Other specified postprocedural states Category: Surgical (2) S/P laparoscopic sleeve gastrectomy: Onset Date: 01/06/22 Comment: 01/06/22 Code(s): Z98.84 - Bariatric surgery status Category: Surgical (3) Overweight: Code(s): E66.3 - Overweight Category: Medical Plan Continue high protein diet. Complete abx today. Abdominal binder for 1 more week then may transition to a softer binder that provides same amount of compression. No walking outside or exercise for 6 weeks minimum. Walking in the house okay. No lifting greater than 10 pounds x 2 months and no abdominal exercises x 3 months. RTC in December for annual.
[2025-08-29 15:24] VITALS: BP 125/72; PULSE 82; TEMP 35.8; O2SAT 97; BMI 25.9
--- OUTSIDE RECORDS SUMMARY | 2025-08-29 23:44 | XMS_ITS | Encounter Summary ---
Author Organization [employer] Address 75 [facility] 7t [place] [address] Care Team Providers Care Wire Hanger Name Role Phone Simona Ribeiro MD Primary Care Provide r Iraida Alanis RN Unavailable [phone] Anne Trinh Unavailable Reason for Visit * Reason Onset Date Comments Home Care Services 12/07/2022 I called the pt regarding a Physician Summary Form, from [employer]. She stated that she does not [...] (Late st Contact Info) Description 12/07/2022 Telephone [facility] MEDICINE [address] [place] [address] Simona Ribeiro MD 230 [place] [address] Home Care Services (I called the pt regarding a Physician Summary Form, from [employer] [facility]. She stated that she does not [...] Description 10/16/2025 9:00 AM EST Office Visit [facility] MEDICINE [address] [place] [address] Simona Ribeiro MD [address] [place] [address] 11/22/2025 3:30 PM EST Office Visit [facility] OPTOMETRY [address] [place] [address] Ren, Jessika, OD 230 [place] [address] 12/25/2025 8:00 AM EDT Office Visit [facility] ADULT DENTAL [address] [place] [address] Leandro, Halina [address] [place] [address] documented as of this encounter Visit Diagnoses Not on filedocumented in this encounter Care Teams Wire Hanger Relationship Specialty Start Date End Date Simona Ribeiro MD [address] [place] [address] PCP - General Family Medicine 07/21/19 Iraida Alanis RN [address] [place] [address] Registered Nurse Family Medicine 08/07/25 Anne Trinh 08/07/25 [employer] 02/22/24 08/13/25 Angel Luis [facility] 07/25/25 documented as of this encounter
--- OUTSIDE RECORDS SUMMARY | 2025-08-29 23:45 | XMS_ITS | Encounter Summary ---
Author Organization [employer] Address [address] [facility] 7t [place] [address] Care Team Providers Care Instrument Specialist Name Role Phone Simona Ribeiro MD Primary Care Provide r Iraida Alanis RN Unavailable [phone] Anne Trinh Unavailable Encounter Details Date Type Department Care Team (Late st Contact Info) Description 08/21/2025 Telephone [facility] MEDICINE [address] [place], [place] [phone] Simona Ribeiro MD [address] [place], [place] [phone] Social History Tobacco Use Types Packs/Day Years [...] the past 12 months, has t he [employer] gas, oil or water company threatened to [...] Description 10/16/2025 9:00 AM EST Office Visit [facility] MEDICINE [address] [place] [address] Simona Ribeiro MD [address] [place] [address] 11/22/2025 3:30 PM EST Office Visit [facility] OPTOMETRY [address] [place] [address] Ren, Jessika, OD [address] [place] [address] 12/25/2025 8:00 AM EDT Office Visit [facility] ADULT DENTAL [address] [place] [address] Halina Reeves [address] [place] [address] documented as of this encounter Visit Diagnoses Not on filedocumented in this encounter Additional Health Concerns Assessment Noted Time PHQ-9 Depression Total Score: 20 08/14/2 025 10:32 AM EST documented as of this encounter Care Teams Instrument Specialist Relationship Specialty Start Date End Date Simona Ribeiro MD [address] [place] [address] PCP - General Family Medicine 07/21/19 Iraida Alanis RN [address] [place] [address] Registered Nurse Family Medicine 08/07/25 Anne Trinh 08/07/25 Angel Luis [facility] 07/25/25 documented as of this encounter
--- OUTSIDE RECORDS SUMMARY | 2025-08-29 23:45 | XMS_ITS | Clinical Summary ---
Author Organization [facility] it Address [address] [place] [address] Care Team Providers Care Long Term Care Social Worker Name Role Phone Cecilia Zee [facility] Primary Care Provider [phone] Surgical History Surgery Date Site/Laterality Comments OVARIAN CYST REMOVAL PROCEDURE: [place] OVARIAN CYSTECTOMY UNI/BI HYSTERECTOMY PROCEDURE: HISTORICAL HYSTERECTOMY BREAST REDUCTION PROCEDURE: [place] BREAST REDUCTION OTHER SURGICAL HISTORY 2007 PROCEDURE: [place] PUNCTURE ASPIRATION CYST BREAST EACH ADDL CYST; [...] on file Sexual Orientation Not on file Plan of Treatment Health Maintenance Due Date [...] EDT [facility] Diagnostic Imaging Department [address] [place] [address] [id number] Patient: ROBERTO ELIZALDE /Age/Sex: 1980 - 39 - F Unit#: [id number] Location/Status: SPDIMAM/PRE CLI Mnemonic/Ordering Site: [facility] Ordering Physician: REI DELACRUZ CNM [facility] Screening Digital - 07/08/19853 EXAM: [facility] Screening Digital EXAM DATE AND TIME: 07/08/2019 9:20 AM HISTORY: Screening. Reduction mammoplasty in 2007. Paternal grandmother had breast carcinoma. COMPARISON: Previous mammograms done in [place] are not available per the patient. TECHNIQUE: CC and MLO views of both breasts were obtained using full field digital mammography. Bilateral digital breast tomosynthesis was performed in the MLO projection. Computer aided detection with the [employer] 7.2-H was employed. TISSUE DENSITY: a. The [...] Routine screening mammogram BILATERAL in 1 year. 13632, [id number] 3342F, 7025F Dictating Physician: ALIS POWER MD Electronically Signed by: ALIS POWER MD Dic Date/Time: 07/09/19 1643 Sign date/Time: 07/09/19 1644 Procedure Note Alis Power - 09/08/2022 [facility] Diagnostic Imaging Department [address] [place] [id number] Patient: TONIOROBERTO./Age/Sex: 1980 - 39 - F Unit#: [id number] Location/Status: SPDIMAM/PRE CLI Mnemonic/Ordering Site: [facility] Ordering Physician: REI DELACRUZ CNM [facility] Screening Digital - 07/08/1954 EXAM: [facility] Screening Digital EXAM DATE AND TIME: 07/08/2019 9:20 AM HISTORY: Screening. Reduction mammoplasty in 2007. Paternal grandmotherhad breast carcinoma. COMPARISON: Previous mammograms done in [place] are not available perthe patient. TECHNIQUE: CC and MLO views of both breasts were obtained using fullfield digital mammography. Bilateral digital breast tomosynthesis was performedin the MLO projection. Computer aided detection with the SilMach 7.2-[employer]as employed. TISSUE DENSITY: a. The breasts are [...] Routine screening mammogram BILATERAL in 1 year. 30788, 51954 3342F, 7025F Dictating Physician: ALIS POWER MD Electronically Signed by: ALIS POWER MD Dic Date/Time: 07/09/193 Sign date/Time: 07/09/19 1644 Rei Delacruz CNM IMG BI PROCEDURES Final Resul t * Pap smear (07/06/2019) 07/06/2019 Narrative HISTORICAL TESTING LAB RESULTING AGENCY - 07/10/2019 1:05 PM EDT [id number] THINPREP PAP, IMAGED: NEGATIVE FOR SQUAMOUS INTRAEPITHELIAL [...] Recently Relevant to Health Maintenance Care Teams Long Term Care Social Worker Relationship Specialty Start Date End Date Cecilia Zee FNP [address] [place] [address] PCP - General Internal Medicine 04/27/19
--- OUTSIDE RECORDS SUMMARY | 2025-08-29 23:45 | XMS_ITS | Encounter Summary ---
Author Organization [employer] Address [address] [facility] 7[address] [place] [address] Care Team Providers Care Bakery And Deli Sales Manager Name Role Phone Simona Ribeiro MD Primary Care Provide r Iraida Alanis RN Unavailable [phone] Anne Trinh Unavailable Encounter Details Date Type Department Care Team (Late Contact Info) Description 06/14/2023 Orders Only [facility] MEDICINE [address] [place] [address] Nemo Patel Social History Tobacco Use [...] 9:00 AM EST Office Visit [facility] MEDICINE [address] [place] [phone] Simona Ribeiro MD [address] [place] [phone] 11/22/2025 3:30 PM EST Office Visit [facility] OPTOMETRY [address] [place] [address] Jessika Mcclure, OD [address] [place] [address] 12/25/2025 8:00 AM EDT Office Visit [facility] ADULT DENTAL [address] [place] [address] Leandro, Halina [address] [place] [address] documented as of this encounter Procedures Procedure Name Priority Date/Time Associated Diagnosis Comments PAP/HPV Routine 08/18/2021 12:00 AM EST documented in this encounter Results * Pap Smear (08/18/2021 12:00 AM EST) us Historical Provider HEALTH MAINTENANCE Final Result documented in this encounter Visit Diagnoses Not on filedocumented in this encounter Care Teams Bakery And Deli Sales Manager Relationship Specialty Start Date End Date Simona Ribeiro MD [address] [place] [address] PCP - General Family Medicine 07/21/19 Iraida Alanis RN [address] [place] [address] Registered Nurse Family Medicine 08/07/25 Anne Trinh 08/07/25 [employer] 02/22/24 08/13/25 [facility] 07/25/25 documented as of this encounter
--- OUTSIDE RECORDS SUMMARY | 2025-08-29 23:45 | XMS_ITS | Encounter Summary ---
Author Organization [employer] Address [address] [facility] 7t [place] [address] Care Team Providers Care Campaign Marketing Manager Name Role Phone Simona Ribeiro MD Primary Care Provide r Iraida Alanis RN Unavailable [phone] Anne Trinh Unavailable Reason for Visit * Reason Comments Med Refill Encounter Details Date Type Department Care Team (Late st Contact Info) Description 12/22/2022 Refill [facility] MEDICINE [address] [place], [place] [phone] Rishabh Mcnally MD [address] [place], [place] [phone] Vaginal candidiasis Social History Tobacco Use Types [...] Description 10/16/2025 9:00 AM EST Office Visit [facility] MEDICINE [address] [place] [address] Simona Ribeiro MD [address] [place] [address] 11/22/2025 3:30 PM EST Office Visit [facility] OPTOMETRY [address] [place] [address] Ren, Jessika, OD [address] [place] [address] 12/25/2025 8:00 AM EDT Office Visit [facility] ADULT DENTAL [address] [place] [address] Halina Reeves [address] [place] [address] documented as of this encounter Visit Diagnoses Diagnosis Vaginal candidiasis Candidiasis of vulva and vagina documented in this encounter Care Teams Campaign Marketing Manager Relationship Specialty Start Date End Date Simona Ribeiro MD [address] [place] [address] PCP - General Family Medicine 07/21/19 Iraida Alanis RN [address] [place] [address] Registered Nurse Family Medicine 08/07/25 Anne Trinh 08/07/25 [employer] 02/22/24 08/13/25 [facility] 07/25/25 documented as of this encounter
--- OUTSIDE RECORDS SUMMARY | 2025-08-29 23:45 | XMS_ITS | Encounter Summary ---
Author Organization [employer] Address [address] [facility] 7t [place] [address] Care Team Providers Care Bread Oven Operator Name Role Phone Simona Ribeiro MD Primary Care Provide r Iraida Alanis RN Unavailable [phone] Anne Trinh Unavailable Reason for Visit * Reason Onset Date Comments Call Back Request 08/13/2025 Encounter Details Date Type Department Care Team (Late st Contact Info) Description 08/13/2025 Telephone [facility] MEDICINE [address] [place], [place] [phone] Simona Ribeiro MD [address] [place], [place] [phone] Call Back Request Social History Tobacco Use [...] 12:45 PM EST Tc from Yolie at [facility] stating sent fdc authorization for 25 visits on 07/25 to 10/15 , but did not receive visits due to other [facility] service being active that they were not aware ofand is providing services Contact Yolie at [phone] documented in this encounter Plan of Treatment Upcoming Encounters Date Type Department Care Team (Late st Contact Info) Description 10/16/2025 9:00 AM EST Office Visit [facility] MEDICINE [address] [place] [address] Simona Ribeiro MD [address] [place] [address] 11/22/2025 3:30 PM EST Office Visit [facility] OPTOMETRY [address] [place] [address] Jessika Mcclure, OD [address] [place] [address] 12/25/2025 8:00 AM EDT Office Visit [facility] ADULT DENTAL [address] [place] [address] Halina Reeves [address] [place] [address] documented as of this encounter Visit Diagnoses Not on filedocumented in this encounter Additional Health Concerns Assessment Noted Time PHQ-9 Depression Total Score: 22 025 1:30 PM EST documented as of this encounter Care Teams Bread Oven Operator Relationship Specialty Start Date End Date Simona Ribeiro MD [address] [place] [address] PCP - General Family Medicine 07/21/19 Iraida Alanis RN [address] [place] [address] Registered Nurse Family Medicine 08/07/25 Anne Trinh 08/07/25 [employer] 02/22/24 08/13/25 Angel Luis [facility] 07/25/25 documented as of this encounter
--- OUTSIDE RECORDS SUMMARY | 2025-08-29 23:45 | XMS_ITS | Clinical Summary ---
Author Organization [employer] Address [address] [facility] 7t [place] [address] Care Team Providers Care Livestock Exhibitor Name Role Phone Simona Ribeiro MD Primary Care Provide r Iraida Alanis RN Unavailable [phone] Anne Trinh Unavailable Allergies Active Allergy [...] g 023 Active Blood Glucose Monitoring Suppl (Therma FliteStAppTank Lite) w/Device kit 1 each in the [...] 024 Active ergocalciferol (Vitamin D-2) 1.25 MG (84832 UT) capsuleIndication s:Vitamin D deficiency Take 1 [...] into vagina at bedtime for 7 nights (MEXICAN) 45 g 025 Active lidocaine (Lidoderm) 5 [...] hours if needed (for asthma). 1 each 025 Active Respiratory Therapy Supplies (Nebulizer Mask Adult/Tubing) miscIndications:U ncomplicated asthma, unspecified asthma severity, unspecified whether persistent 1 each every 6 (six) hours if needed (for asthma). 1 each 025 Active albuterol (Ventolin HFA) 108 (90 [...] eorder (will not trigger notification to Pharmacy)) Nebulizer misc 2024 Discontinued(R eorder (will not trigger notification to Pharmacy)) Respiratory Therapy Supplies (Nebulizer Mask Adult/Tubing) [facility] 2024 Discontinued(R eorder (will not trigger notification [...] chronic allergic conjunctivitis 11/01/2023 History of dental hoahaoism 10/06/2023 Missing teeth, acquired 09/14/2023 Acute bacterial [...] Encounters Date Type Department Care Team Description 08/28/2025 Patient Outreach [address] [address] Simona Ribeiro MD Care Management (C3CM- FOLLOW UP CALL ) 08/22/[address] [address] Simona Ribeiro MD Care Coordination (Home Care Utilization ) 08/21/[address] [address] Simona Ribeiro MD 08/21/[address] [address] Simona Ribeiro MD Durable Medical Equipment (DME: Neblulizer) 08/14/2025 Orders Only [address] [address] Simona Ribeiro MD 08/14/2025 Orders Only [address] [address] Simona Ribeiro MD Uncomplicated asthma, unspecified asthma severity, unspecified whether persistent; Other migraine without status migrainosus, not intractable 08/14/2025 Plan of Care Documentation [address] [address] 08/14/2025 Plan of Care Documentation [address] [address] 08/14/2025 Patient Outreach [address] [address] Simona Ribeiro MD Care Management (C3 COMPLEX INITIAL ASSESSMENT/ ENROLLMENT ) 08/13/[address] [address] Simona Ribeiro MD Care Coordination (Utilization Review) 08/13/[address] [address] Simona Ribeiro MD Call Back Request 08/13/2025 Patient Outreach [address] [address] Simona Ribeiro MD Care Coordination (C3 CM-[facility] Anne Trinh telephone call outreach ) 08/07/2025 Patient Outreach [address] [address] Simona Ribeiro MD Care Coordination (C3 CM-[facility] Anne Trinh telephone call outreach) 08/07/2025 Patient Outreach [address] [address] Simona Ribeiro MD Care Coordination ([facility] Anne Trinh chart review) 08/07/2025 Patient Outreach [address] [address] Simona Ribeiro MD Care Management ([facility] -CHART REVIEW ) 08/07/2025 Patient Outreach [address] [address] Simona Ribeiro MD 07/26/[address] [address] Simona Ribeiro MD Prediabetes 07/24/2025 Orders Only GENERIC EXTERNAL DATA DEPARTMENT Provider, Generic External Data 07/20/2025 Orders Only GENERIC EXTERNAL DATA DEPARTMENT Provider, Generic External Data 07/17/[address] [address] Simona Ribeiro MD Care Coordination (Home Health Care Utilization) 07/16/[address] [address] Simona Ribeiro MD fyi 07/16/[address] [address] Simona Ribeiro MD Care Coordination (Home Care Utilization ) 07/11/[address] [address] Simona Ribeiro MD 07/02/2025 Refill [facility] [address] [place] [address] Simona Ribeiro MD Prediabetes; Allergic conjunctivitis of both eyes; Allergic dermatitis 06/28/2025 Refill [facility] [address] [place] [address] Simona Ribeiro MD Fibromyalgia 06/25/2025 8:45 AM EDT Office Visit [facility] ADULT DENTAL [address] [place] [address] Halina Reeves Dental plaque (Primary Dx); Missing [...] Description 10/16/2025 9:00 AM EST Office Visit [facility] MEDICINE [address] [place] [address] Simona Ribeiro MD [address] [place] [address] 11/22/2025 3:30 PM EST Office Visit [facility] OPTOMETRY [address] [place] [address] Jessika Mcclure, OD [address] [place] [address] 12/25/2025 8:00 AM EDT Office Visit [facility] ADULT DENTAL [address] [place] [address] Halina Reeves [address] [place] [address] Health Maintenance Due Date Last Done Comments [...] 023, 03/16/2023, 10/04/2019 Eye Exam 11/20/2026 11/20/2024, 03/11/2024, 11/20/2024, Additional [...] complication, without long-term current use of insulin ([facility]/HCC) BI MAMMOGRAM SCREENING TOMOSYNTHESIS BILATERAL Routine 02/16/2025 [...] 1:58 PM EST 07/25/2025 8:00 AM EST [facility] LABS - 07/27/2025 10:41 AM EST ----- ------- Name: Regina Willson Age/Sex: 45/F : 1980 Unit#: [id number] Attend Dr: El Fisher MD Re07/24/25 Status: [facility] Location: [facility] Disch: ----- ------- SPEC : [id number] RECD: 07/25/25 STATUS: DINORA PERRY NUM: [id number] REAGAN: 07/24/25-[address]: El Fisher MD [...] tissue. No cysts or nodules are identified. Chemical Technician sections are submitted for microscopic examination in cassettes A1 through A3, 1 piece each. ([facility]) IHC S/NG Disclaimer NOTE: Unless otherwise stated, all tissue is formalin-fixed and paraffin-embedded. Some or all of the immunohistochemical tests reported herein may have been developed and their performance characteristics determined by [facility]. They have not been cleared or approved by the U.S. Food and Drug Administration (FDA). However, the FDA has determined that such clearance or approval is not necessary. This laboratory is certified under the Clinical Laboratory Improvement Amendments of 1988 (CLIA) as qualified to perform high complexity clinical laboratory testing. Copies To: Simona Ribeiro MD [address] [address] CONTINUED ON NEXT PAGE ----- ------- Name: Regina Willson Age/Sex: 45/F : 1980 Unit#: [id number] Attend Dr: El Fisher MD Re07/24/25 Status: [facility] Location: [facility] Disch: ----- ------- SPEC : [id number] RECD: 07/25/25 STATUS: DINORA PERRY NUM: [id number] REAGAN: 07/24/[address] [facility] [address]: El Fisher MD ENTERED: 07/25/25 SP TYPE: Surgical OTHR DR: Simona Ribeiro MD ORDERED: Gross Micro L3 Copies To: (Continued) El Fisher MD [facility] Weight Management Program [address] [place] [phone] ----- ------- Signed (signature on file) Nora Mohan 07/27/25 1041 ----- ------- END OF REPORT us Generic External Data Provider LAB CYTOLOGY DORON ANGLIN Final Result [facility] [address] [place] [address] [phone] * Glucose, Whole Blood (07/24/2025 10:42 AM EST) Glucose, Whole Blood 70 60 - 115 mg/dL [facility] Comment:METER #: [id number] 07/24/2025 10:4 2 AM EST 07/24/2025 10:46 AM EST us Generic External Data Provider LAB BLOOD ORDERAB LES Final Result [facility] [address] [place] [address] [phone] * (ABNORMAL) CBC auto differential (07/20/2025 8:00 AM EDT) Pathologist [facility] White Blood Count 5.3 4.8 - 10.8 X10*3/uL [facility] Red Blood Count 4.95 4.20 - 5.50 X10*6/uL [facility] Hemoglobin 14.3 12.0 - 16.0 g/dl [facility] Hematocrit 44.7 37.0 - 47.0 % [facility] Mean Corpuscular Volume 90.3 80.0 - 98.0 fL [facility] Mean Corpuscular Hemoglobin 28.9 27.0 - 33.0 pg [facility] Mean Corpuscular HGB Conc 32.0 31.0 - 35.0 g/dl [facility] Red Cell Distribution Width 13.4 11.0 - 16.0 % [facility] Platelet Count 316 160 - 400 X10*3/uL [facility] Mean Platelet Volume 10.0 9.4 - 12.3 fL [facility] Neutrophils Percent Auto 41.1(L) 45 - 73 % [facility] Imm Gran Pct Auto 0.2 0.0 - 0.4 % [facility] Lymphocytes Percent Auto 49.3(H) 20 - 40 % [facility] Monocytes Percent Auto 6.9 2 - 11 % [facility] Eosinophils Percent Auto 1.5 0 - 4 % [facility] Basophils Percent Auto 1.0 0 - 2 % [facility] NRBC Pct Auto 0.0 0.0 - 0.2 /100WBC [facility] Neutrophils Absolute Auto 2.2 2.0 - 8.3 x10*3/uL [facility] Imm Gran Abs Auto 0.01 0.00 - 0.03 X10*3/uL [facility] Lymphocytes Absolute Auto 2.6 1.2 - 4.9 X10*3/uL [facility] Monocytes Absolute Auto 0.4 0.1 - 1.2 X10*3/uL [facility] Eosinophils Absolute Auto 0.1 0.0 - 0.4 X10*3/uL [facility] Basophils Absolute Auto 0.1 0.0 - 0.2 X10*3/uL [facility] NRBC Abs Auto 0.000 0.0 - 0.012 X10*3/uL [facility] 07/20/2025 8:00 AM EDT 07/20/2025 8:00 AM EDT us Generic External Data Provider LAB BLOOD ORDERAB LES Final Result Performing Organization Address City/[facility]/ZIP Co de Phone Number [facility] [address] [place] [phone] * (ABNORMAL) Partial Thromboplastin Time, Activated (APTT) (07/20/2025 8:00 AM EDT) Partial Thromboplastin Time 25.2(L) 26.7 - 34.1 SEC [facility] 07/20/2025 8:00 AM EDT 07/20/2025 8:00 AM EDT us Generic External Data Provider LAB BLOOD ORDERAB LES Final Result Performing Organization Address City/[facility]/ZIP Co de Phone Number [facility] [address] [place] [phone] * (ABNORMAL) Prothrombin Time-INR (07/20/2025 8:00 AM EDT) Prothrombin Time 10.7(L) 10.9 - 12.4 SEC [facility] INTERNATIONAL NORM RATIO 0.9 0.9 - 1.1 [facility] Comment:INTERNATIONAL NORMAL IZED RATIO (INR) [...] Provider LAB BLOOD ORDERAB LES Final Result [facility] [address] [place] [phone] * Comprehensive Metabolic Panel (07/20/2025 8:00 AM EDT) Pathologist [facility] Sodium 143 135 - 145 mmol/L [facility] Potassium 3.8 3.3 - 5.1 mmol/L [facility] Chloride 107 96 - 108 mmol/L [facility] Carbon Dioxide 28 22 - 29 mmol/L [facility] Anion Gap 12 12 - 20 [facility] Urea Nitrogen (BUN) 12 9 - 16 mg/dL [facility] Creatinine, Serum 0.82 0.5 - 1.4 mg/dL [facility] Creatinine Clr Calc Pharmacy 75.8 [facility] Comment:Provided height and weight: 157.48 cm,63.503 kg.eGFR (calculated from the MDRD study equation) and eCrCl(calculated from the Cockcroft-Gault equation) are based ondifferent parameters and may not yield comparable results.If eCrCl result is absurd, please check patient'sheight/weight. Estimated Glomerular Filt Rate >60 [facility] Comment:Chronic Kidney Disea se: Estimated GFR < 60 mL/min/1.94t5Lejoze Kidney Disease: Estimated GFR < 15 mL/min/1.73m2 Glucose 85 60 - 115 mg/dL [facility] Calcium 10.1 8.4 - 10.2 mg/dL [facility] Bilirubin, Total 0.7 0.0 - 1.0 mg/dL [facility] Aspartate Amino Transferase 23 5 - 31 U/L [facility] Alanine Aminotransferase 22 0 - 31 U/L [facility] Total Protein 7.5 6.5 - 8.0 g/dL [facility] Albumin Level 4.8 3.5 - 5.0 g/dL [facility] Alkaline Phosphatase 67 39 - 117 U/L [facility] 07/20/2025 8:00 AM EDT 07/20/2025 8:00 AM EDT us Generic External Data Provider LAB BLOOD ORDERAB LES Final Result Performing Organization Address City/[facility]/ZIP Co de Phone Number [facility] [address] [place] [phone] * Type and screen (07/20/2025 7:51 AM EDT) Blood Type AP [facility] Antibody Screen NEGATIVE [facility] 07/20/2025 7:51 AM EDT 07/20/2025 8:03 AM EDT Narrative [facility] - 07/20/2025 9:04 AM EDT Spec expiration changed by ALEJANDRO on 07/20/25Reason: PATNURSING:Call Blood Bank (ext. [phone]) to band patient on admission.Type and Screen in effect until 2300 on 07/24/2025Witnessed by YUMIKO us Generic External Data Provider LAB BLOOD BANK TE ST ORDERABLES Final Result Performing Organization Address City/[facility]/ZIP Co de Phone Number [facility] [address] [place] [address] [phone] * Hepatitis C Antibody with Reflex to HCV, RNA, Quantitative, Real-Time PCR (02/28/2025 8:27 AM EDT) Hepatitis C Antibody Nonreactive Nonreactive [facility] Comment:Antibodies to HCV no t detected; does not exclude early acuteHCV infection. Blood Venous blood specimen / Unknown 02/28/2025 8:27 AM EDT 02/28/2025 8:27 AM EDT us Simona Gaston MD LAB BLOOD ORDERABLES Final Result Performing Organization Address [facility]/ZIP Co de Phone Number [facility] [address] [place] [phone] * HIV-1/2 Antigen and Antibodies, Fourth Generation, with Reflexes (02/28/2025 8:27 AM EDT) Pathologist [facility] HIV AB/AG Nonreactive Nonreactive [facility] Comment:HIV-1 p24 Ag and/or HIV-1/HIV-2 Ab not detected.A test result that is nonreactive does not exclude thepossibility of exposure to or infection with HIV-1 and/orHIV-2. Nonreactive results in this assay for individualswith prior exposure to HIV-1 and/or HIV-2 may be due toantigen and antibody levels that are below the limit ofdetection of this assay.The [employer] HIV Ag/Ab Combo assay result andsupplemental assay results should be interpreted inconjunction with the patient's clinical presentation,history and other laboratory results. If the results areinconsistent with clinical evidence, additional testing issuggested to confirm the result. Blood Venous blood specimen / Unknown 02/28/2025 8:27 AM EDT 02/28/2025 8:27 AM EDT us Simona Gaston MD LAB BLOOD ORDERABLES Final Result Performing Organization Address [facility]/ZIP Co de Phone Number [facility] [address] [place] [phone] * Hemoglobin A1c (02/28/2025 8:27 AM EDT) Hemoglobin A1c 5.5 <6.0 % [facility] Comment:Hemoglobin A1C Refer ence Range Adults: 4.8 - 6.0 % Non diabetic: < 6.0 % Goal: < 7.0 %Additional Action Suggested: > 8.0 %Note: Hemoglobin A1c results are invalid for patients with abnormal amounts of HbF. Blood transfusions may impact the HbA1c concentration in the patient sample. Estimated Average Glucose 111 mg/dL [facility] Comment:eAG = Estimated ave rage glucose which is %A1C expressed asaverage glucose, using the formula of the Z4J-[id number] Glucose study (ADAG), Diabetes Care, Vol.31,#8,Apr. 2007 02/28/2025 8:27 AM EDT 02/28/2025 8:27 AM EDT us Generic External Data Provider LAB BLOOD ORDERAB LES Final Result [facility] [address] [place] [phone] [phone] * (ABNORMAL) Lipid Panel, Standard (02/28/2025 8:27 AM EDT) Triglycerides 93 <150 mg/dL [facility] Comment:Desirable Triglyceri de: less than 150 mg/dLBorderline High Triglyceride 150-199 mg/dLHigh Triglyceride: 200-499 mg/dLVery High Triglyceride: greater than or equal to 5OO mg/dL Cholesterol 221(H) <200 mg/dL [facility] Comment:Desirable Cholestero l: less than 200 mg/dLBorderline High Cholesterol: 200-239 mg/dLHigh Cholesterol: greater than 239 mg/dL LDL Cholesterol Calculated 153(H) <100 mg/dL [facility] Comment:Desirable LDL: less than 100 mg/dLNear Optimal/Above Optimal LDL: 110- 129 mg/dLBorderline High LDL: 130-159 mg/dLHigh LDL: 160-189 mg/dLVery High LDL: greater than or equal to 190 mg/dL HDL Cholesterol 50 >40 mg/dL [facility] Comment:Desirable HDL: great er than 40 mg/dL Note: This HDL assay may give artificially low results in patients with liver disease. Blood Venous blood specimen / Unknown 02/28/2025 8:27 AM EDT 02/28/2025 8:27 AM EDT us Simona Gaston MD LAB BLOOD ORDERABLES Final Result Performing Organization Address [facility] Co de Phone Number [facility] [address] [place] [phone] * Albumin, Random Urine W/Creatinine (02/28/2025 8:20 AM EDT) Creatinine, Urine 520.55 mg/dL [facility] Microalbumin Urine 49.0 mg/L [facility] Microalbum Creatinine Ratio Ur 9.4 <30 ug/mg cr [facility] Comment:Albumin/Creatinine R atio Reference Ranges: Normal: < 30 ug/mg creatinine Microalbuminuria: 30 - 300 ug/mg creatinineClinical Albuminuria: > 300 ug/mg creatinine Urine (Urine, Random) 02/28/2025 8:20 AM EDT 02/28/2025 9:10 AM EDT us Simona Gaston MD LAB URINE ORDERABLES Final Result Performing Organization Address [facility] Co de Phone Number [facility] [address] [place] [phone] * BI Mammogram Screening Tomosynthesis Bilateral (02/16/2025 7:52 AM EDT) Anatomical Region Laterality Modality Breast Bilateral Mammography 02/16/2025 7:52 AM EDT Narrative 02/23/2025 5:07 PM EDT [facility] [address] [place] [address] Mammography Report Signed Patient: Larson GradyRegina mueller MR#: [id number] : 1980 Acct:[id number] Age/Sex: 44 / F ADM Date: 02/16/25 Loc: HO.MAMMO Attending Dr: Luis Carlos Adrian MD Ordering Physician: Luis Carlos Adrian MD Results: 2Beni gn Findings Date of Service: 02/16/25 Follow Up: 1 Year From Orig inal Mammogram Procedure(s): MM tomosynthesis screening BI Accession Number(s): [id number] cc: Simona Ribeiro MD; Luis Carlos Adrian [...] 02/23/25 1704 DD/ 0752 TD/TT: 02/16/25 0805 Cyber Workforce Developer And Manager: Procedure Note Donotuseinterpreter, Image - 02/23/2025 [facility] [address] [place], [place] [address] Mammography Report Signed Patient: Regina WillsonMR#: [id number] : 1980Acct:[id number] Age/Sex: 44 / FADM Date: 02/16/25 Loc: HO.MAMMO Attending Dr: Luis Carlos Adrian MD Ordering Physician: Luis Carlos Adrian MDResults: 2Beni gn Findings Date of Service: 02/16/25Follow Up: 1 Year From [facility] Mammogram Procedure(s): MM tomosynthesis screening BI Accession Number(s): [id number] cc: Simona Ribeiro MD; Luis Carlos Adrian [...] 02/23/25 1704 DD/ 0752 TD/TT: 02/16/25 0805 Cyber Workforce Developer And Manager: [facility] External Provider IMG BI PROCEDURES Final Result * HPV E6/E7 RFLX DANNY 16 18/45 (08/18/2021 10:17 AM EST) HPV 16 RNA [facility] HPV 18/45 RNA [facility] HPV E6 E7 ADD [facility] HPV mRNA E6/E7 rflx Not Detected Not Detected [facility] Comment: Methodology: Rotary Shear Cutter-Mediated Amplification This assay detects E6/E7 viral messenger RNA (mRNA) from 14 high-risk HPV types (16,18,31,33,35,39,45,51,52,56,58,59,66,68). The analytical performance characteristics of this assay have been determined by [employer]. The modifications have not been cleared or approved by the FDA. This assay has been validated pursuant to the CLIA regulations and is used for clinical purposes. For additional information, please refer to http://education.[employer] [place]/faq/XJW537h2 (This link if provided for information/ educational purposes only.) THIS TEST WAS PERFORMED AT: [facility] [address] [place] [address] [address] [address] JASWINDER PAUL MD 08/18/2021 10:1 7 AM EST Ramesh Maki MD HISTORICAL/NON ORDERABLE LABS Fi nal Result [facility] [address] * Hm Pap Smear (08/18/2021 12:00 AM EST) Historical Provider HEALTH MAINTENANCE Final Result from Last 3 Months or Most Recently Relevant to Health Maintenance Insurance [facility] C3 [facility] MEDICAID STAND ADULT Care Teams Livestock Exhibitor Relationship Specialty Start Date End Date Simona Ribeiro MD [address] [place] [address] PCP - General Family Medicine 07/21/19 Iraida Alanis RN [address] [place], [place] Registered Nurse Family Medicine 08/07/25 Anne Trinh 08/07/25 [facility] 07/25/25
--- OUTSIDE RECORDS SUMMARY | 2025-08-29 23:45 | XMS_ITS | Encounter Summary ---
Author Organization [employer] Address [address] [facility] [address]t [place] [address] Care Team Providers Care Mortgage Loan Processor Name Role Phone Simona Ribeiro MD Primary Care Provide r Iraida Alanis RN Unavailable [phone] Anne Trinh Unavailable Encounter Details Date Type Department Care Team (Latest Contact Info) Description 10/04/2019 Abstract [facility] CONVERSIONS Dental, Provider, DDS Social History Tobacco [...] Description 10/16/2025 9:00 AM EST Office Visit [facility] MEDICINE [address] [place] [address] Simona Ribeiro MD [address] [place] [address] 11/22/2025 3:30 PM EST Office Visit [facility] OPTOMETRY [address] [place] [address] Jessika Mcclure, OD [address] [place] [address] 12/25/2025 8:00 AM EDT Office Visit [facility] ADULT DENTAL [address] [place], [place] [phone] Halina Reeves [address] [place], [place] [phone] documented as of this encounter Visit Diagnoses Not on filedocumented in this encounter Care Teams Mortgage Loan Processor Relationship Specialty Start Date End Date Simona Ribeiro MD [address] [place], [place] [phone] PCP - General Family Medicine 07/21/19 Iraida Alanis RN [address] [place], [place] [phone] Registered Nurse Family Medicine 08/07/25 Anne Trinh 08/07/25 [facility] 02/22/24 08/13/25 Angel [facility] 07/25/25 documented as of this encounter
--- OUTSIDE RECORDS SUMMARY | 2025-08-29 23:45 | XMS_ITS ---
Author Organization [employer] Address [address] [facility] [address] [place] [address] Care Team Providers Care Senior Technical Specialist Name Role Phone Simona Ribeiro MD Primary Care Provide r Iraida Alanis RN Unavailable [phone] Anne Trinh Unavailable [facility] Status:Enrolled (Active) Start date:08/07/2025 Enrollment date:08/13/2025 Enrollment reason:Referred by provider Overview Home Health Utilization Referral. Please outreach to patient. Case Team Name Relationship Phone Anne Trinh(Responsible Staff) Continued Care and Services Coordination
--- OUTSIDE RECORDS SUMMARY | 2025-08-29 23:45 | XMS_ITS | Encounter Summary ---
Author Organization [employer] Address [address] [facility] [address] [place] [address] Care Team Providers Care Poultry Pinner Name Role Phone Simona Ribeiro MD Primary Care Provide r Iraida Alanis RN Unavailable [phone] Anne Trinh Unavailable Reason for Visit * Reason Comments Care Management C3CM- FOLLOW UP CALL Encounter Details Date Type Department Care Team (Late st Contact Info) Description 08/28/2025 Patient Outreach [facility] MEDICINE [address] [place], [place] [phone] Simona Ribeiro MD [address] [place], [place] [phone] Care Management (C3CM- FOLLOW UP CALL ) Social History Tobacco Use Types Packs/Day [...] Progress Notes * Iraida Alanis RN - 08/28/2025 9:54 AM EST CM Iraida Alanis RN placed outbound call to patient. Patient's name, and address confirmed. Patient states is doing well with no recent illnesses or emergency room visits. Patient had Weight management follow up last week, j- drains were removed. Patient states [facility] came in for last visit yesterday. Patient states wound is healing well. Continues to use abdominal binder. Patient would like a new one as the one she has is stained. Patient advised to ask during follow up with Weight Managementtomorrow if they can provide another binder or can complete DME. If they defer to PCP, patient to call CM to request from PCP. Patient confirms that Nebulizer machine and supplies were delivered by [facility]. Patient advised to call them when needs to request refill on supplies. Patient denies any need for Patient states MRI of breast was scheduled for 09/24/25 at 4pm at [facility]. Patient has not yet rescheduled colonoscopy due to still not cleared for this by Weight Management. CM assessed if patient still receiving ENCODING CLERK. Patient states daughter who is INFECTION CONTROL MANAGER was requesting more hours from agency but has not received a call back. Advised that ENCODING CLERK hours are very minimal, and [facility] services discontinued last month. Patient agrees to have CM send out contact information for PCM Agency. Patient requested to have PCP appointment rescheduled for later in the afternoon, patient advised that latest would be on a different date. Patient agrees to keep appointment as already scheduled. Patient declines having CM ask about medbox services from [facility]. CM advised patient to notify if wishesto have this service at a later time. No further questions or concerns. CM reinforced direct contact information or CHW for any additional questions or concerns. Education provided on [facility]. Patient provided with after-hours line for [facility], , which offer night time triage service and option to transfer to supervisor television chassis repair provider if needed. Patient verbalizes understanding, and able to repeat back to movie writer. A follow up call will be placed within 10 days, patientagrees with plan. documented in this encounter Miscellaneous Notes * Care Plan - Iraida Alanis RN - 08/28/2025 9:54 AM EST Active Barriers to Care Manage Barriers to Care (Progressing) Start: 08/14/25 Expected End: 11/14/25 Patient will identify and communicate with care management team any personal, social, or environmental barriers that affect their ability to access or participate in care. Goal Note CM assessed to any barriers to attend follow up with weight management, PCP or other appointments. Patient denies any barriers at this time. Care Management Care Management (Progressing) Start: 08/14/25 Expected End: 11/14/25 Patient will engage with home care specialist through scheduled calls or visits to review health goals, discuss progress, and address any barriers to care plan in the next 3 months. Goal Note CM has been able to complete all follow ups as scheduled. CM reinforced direct contact information or CHW Coordination of Care Effectively coordinate care (Progressing) Start: 08/14/25 Expected End: 11/14/25 patient will notify the care team of all upcoming appointments and communicate any scheduling difficulties to receive assistance with coordination and reminders. Goal Note CM assessed for need to further coordinate appointment with Breast center. Patient already scheduled for MR of breast on 09/24/25. CM to send PCM Agency list for INFECTION CONTROL MANAGER services. Home Health [facility] Health Care Delivery (Progressing) Start: 08/14/25 Expected End: 11/14/25 Patient will identify and obtain appropriate home and community-based services to assist with ADLs. Goal Note CM assessed that [facility] services have completed at post op surgical drains removed. INFECTION CONTROL MANAGER services agency list sent for patient to request. Incision Wound Optimal Wound Healing (Progressing) Start: 08/14/25 Expected End: 11/14/25 Patient will follow wound care plan as instructed by surgeon to help promote healing and prevent infection, and will notify care team of any changes or concerns with wound. Goal Note CM assessed for incision healing progress. No signs or symptoms of infection per patient. Patient compliant with Weight management follow up appointments. Medication Concerns Improve Medication Access (Progressing) Start: 08/14/25 Expected End: 11/14/25 Patient will notify their pharmacy, primary care provider or prescriber when medication refills areneeded to prevent missed doses Goal Note CM assessed for medication refill needs. None per patient. Improve Medication Adherence (Progressing) Start: 08/14/25 Expected End: 11/14/25 Patient agrees to trial using bubble-packaged medications to help stay organized and medications asprescribed. Patient will monitor how well this system works for them and share any challenges or improvements with care team. Goal Note CM assessed patient compliant with all medications. Plan of Care Patient Centered Plan of Care (Progressing) Start: 08/14/25 Expected End: 11/14/25 Patient will actively participate in care planning by collaborating with the care team to set, review, and work toward personal health goals, demonstrating engagement in their overall treatment and wellness plan. Goal Note CM reviewed care plan with patient, documented goal progression. Post-Op Concerns Manage Post-Op Concerns (Progressing) Start: 08/14/25 Expected End: 11/14/25 Patient will follow post-operative management plan by taking medications as prescribed, attending all follow-up appointments, and completing wound care or activity restrictions as directed. Patient will report any new or worsening symptoms-such as fever, increased pain, or drainage-to provider within 24-48 hours to ensure a safe recovery. Goal Note CM assessed for any post op concerns. None identified at this time. SDOH Needs Support SDOH Needs (Progressing) Start: 08/14/25 Expected End: 11/14/25 Patient will communicate any social, financial, or environmental challenges that affect their health (such as housing, transportation, food access, or medication costs) with care management team so that they can help connect with available resources and supports. Goal Note No SDOH needs identified at this time. Self Management Patient understands and has a plan for managing symptoms and knows when to contact physician (Progressing) Start: 08/14/25 Expected End: 11/14/25 Patient will call their primary care provider's office for any new or urgent health concerns, utilize the walk-in clinic or nurse telephone triage services after hours as needed to to ensure timely follow-up and appropriate adjustments to the treatment plan. Goal Note CM provided education on Walk-In Urgent Care located in [facility]. Patient provided with after-hours line for [facility], Resolved DME/Equipment Obtain DME/Equipment (Met) Start: 08/14/25 Expected End: 11/14/25 Resolved: 08/28/25 Patient will communicate any new or ongoing DME needs (e.g. equipment repairs, replacements, new items) to care team to assist with coordination of orders to ensure timely access to equipment needs. Goal Note CM confirmed that nebulizer/nebulizer kit was delivered. [facility] Coordinate Arrangements for DME/Supplies (Completed) Start: 08/14/25 End: 08/28/25 Iraida Alanis RN documented in this encounter Plan of Treatment Upcoming Encounters Date Type Department Care Team (Late st Contact Info) Description 10/16/2025 9:00 AM EST Office Visit [facility] [address], [place] [phone] Simona Ribeiro MD [address] [place], [place] [phone] 11/22/2025 3:30 PM EST Office Visit [facility] OPTOMETRY [address] [place] [address] Jessika Mcclure, OD [address] [place] [address] 12/25/2025 8:00 AM EDT Office Visit [facility] ADULT DENTAL [address] [place] [address] Leandro, Halina [address] [place] [address] documented as of this encounter Visit Diagnoses Not on filedocumented in this encounter Additional Health Concerns Assessment Noted Time PHQ-9 Depression Total Score: 20 08/14/ 025 10:32 AM EST documented as of this encounter Care Teams Poultry Pinner Relationship Specialty Start Date End Date Simona Ribiero MD [address] [place] [address] PCP - General Family Medicine 07/21/19 Iraida Alanis RN [address] [place] [address] Registered Nurse Family Medicine 08/07/25 Anne Trinh 08/07/25 [facility] 07/25/25 documented as of this encounter
--- OUTSIDE RECORDS SUMMARY | 2025-08-29 23:45 | XMS_ITS | Encounter Summary ---
Author Organization [employer] Address [address] [facility] [address] [place] [address] Care Team Providers Care Honey Producer Name Role Phone Simona Ribeiro MD Primary Care Provide r Iraida Alanis RN Unavailable [phone] Anne Trinh Unavailable Encounter Details Date Type Department Care Team (Late st Contact Info) Description 08/14/2025 Orders Only [facility] [address] [place], [place] [phone] Simona Ribeiro MD [address] [place] [address] Social History Tobacco Use Types Packs/Day Years [...] Description 10/16/2025 9:00 AM EST Office Visit [facility] [address] [place] [address] Simona Ribeiro MD [address] [place] [address] 11/22/2025 3:30 PM EST Office Visit [facility] OPTOMETRY [address] [place] [address] Ren, Jessika, OD [address] [place] [address] 12/25/2025 8:00 AM EDT Office Visit [facility] ADULT DENTAL [address] [place] [address] Leandro, Halina [address] [place] [address] documented as of this encounter Visit Diagnoses Not on filedocumented in this encounter Additional Health Concerns Assessment Noted Time PHQ-9 Depression Total Score: 20 025 10:32 AM EST documented as of this encounter Care Teams Honey Producer Relationship Specialty Start Date End Date Simona Ribeiro MD [address] [place] [id number] PCP - General Family Medicine 07/21/19 Iraida Alanis, ZARA [address] [place] [address] Registered Nurse Family Medicine 08/07/25 Anne Trinh 08/07/25 Angel [facility] 07/25/25 documented as of this encounter
--- OUTSIDE RECORDS SUMMARY | 2025-08-29 23:45 | XMS_ITS ---
Author Organization [employer] Address [address] [facility] [address] [place] [address] Care Team Providers Care Ribbon Sweatband Operator Name Role Phone Simona Ribeiro MD Primary Care Provide r Iraida Alanis RN Unavailable [phone] Anne Trinh Unavailable CM Complex Status:Enrolled (Active) Start date:08/07/2025 Enrollment date:08/14/2025 Enrollment reason:Referred by provider Overview Home Health Utilization- Please coordinate with Shakira for connection with BUSINESS INTERN services for reduction of PATIENT CARE MANAGER and [facility]. Case Team Name Relationship Phone Iraida Alanis RN(Responsible Staff) Registered Nurse Continued Care and Services Coordination
== END 2025-08-29 15:41 | disposition home or self-care (01) ==
LOC: HO.HBS 15:10
PROVIDERS: PCP Internal Medicine; Visit Provider Physician Assistant Surgical
DX: E66.3 Overweight (principal); Z68.25 Body mass index [BMI] 25.0-25.9, adult; Z98.890 Other specified postprocedural states; Z90.3 Acquired absence of stomach [part of]; Z98.84 Bariatric surgery status
CPT/HCPCS: 99024

== ENCOUNTER → 2025-08-29 15:10 | Outpatient (BNVA) | payer MEDICAID, SELFPAY | PROVIDERS: PCP Internal Medicine; Visit Provider Physician Assistant Surgical | DX: Z48.815 Encounter for surgical aftercare following surgery on the digestive system (principal); Z98.890 Other specified postprocedural states; Z98.84 Bariatric surgery status; E66.3 Overweight; Z68.25 Body mass index [BMI] 25.0-25.9, adult | CPT/HCPCS: 99212 ==